=== PATIENT | female | born 1945 | race Caucasian/White ===

== ENCOUNTER 2023-12-08 16:32 | Inpatient (IN) | payer MEDICARE, SELFPAY ==
[2023-12-08] VITALS (9 sets, daily range): BP systolic 83–138; BP diastolic 39–77
[2023-12-08 12:36] LABS: % Basophils 0.7 % (0-2); % Eosinophils 0.3 % (0-6); % Immature Granulocytes 1.5 % (0-0.5); % Lymphocytes 7.5 % (20.5-51.1); % Monocytes 7.8 % (1.7-9.3); % Neutrophils 82.2 % (42.2-75.2); Absolute Basophils 0.1 10^3/uL (0-0.2); Absolute Eosinophils 0.1 10^3/uL (0-0.7); Absolute Immature Granulocytes 0.3 10^3/uL (0-0.05); Absolute Lymphocytes 1.4 10^3/uL (1.2-3.4); Absolute Monocytes 1.5 10^3/uL (0.1-0.6); Absolute Neutrophils 15.9 10^3/uL (1.4-6.5); Hematocrit 43.1 % (37.0-47.0); Hemoglobin 15.7 g/dL (12.0-16.0); Mean Corp Hgb Conc. 36.4 g/dL (33.0-37.0); Mean Corpuscular Hgb 31.2 pg (27.0-31.0); Mean Corpuscular Volume 85.7 fL (81.0-99.0); Mean Platelet Volume 11.1 fL (7.4-10.4); Nucleated Red Blood Cells % 0 %; Platelet Count 519 10^3/uL (130-400); Red Blood Cell Count 5.03 10^6/uL (4.20-5.40); Red Cell Dist. Width 13.6 % (11.5-14.5); White Blood Cell Count 19.3 10^3/uL (4.8-10.8)
[2023-12-08 12:40] LABS: ALT (SGPT) 16 U/L (0-35); AST (SGOT) 30 U/L (14-36); Albumin 4.4 g/dl (3.5-5.0); Alkaline Phosphatase 87 U/L (38-126); Blood Urea Nitrogen 48 mg/dl (7-17); Calcium 10.6 mg/dl (8.4-10.2); Carbon Dioxide 27 mmol/L (22-30); Chloride 83 mmol/L (98-107); Glucose 92 mg/dl (70-99); Lipase 287 U/L (23-300); Potassium 4.8 mmol/L (3.5-5.1); Sodium 123 mmol/L (135-145); Total Bilirubin 1.2 mg/dl (0.2-1.3); Total Protein 6.9 g/dl (6.3-8.2); eGFR 35.01
--- NOTE | 2023-12-08 13:07 | ED.GENMED ---
History of Present Illness
General
Chief Complaint: Abdominal Symptoms
Time Seen by Provider: 12/08/23 12:59
History of Present Illness
History of Present Illness:
78-year-old female history of GERD, IBS presenting with left lower quadrant abdominal pain for the past 2 to 3 weeks. Patient describes it as a pressure like someone is sitting on her left side. Patient denies any nausea, vomiting, diarrhea,
dysuria, hematuria, fever or chills. Patient states that she was seen by her PCP today noted that she was on new onset atrial fibrillation and recommended come to the ER for further evaluation. Patient denies any previous history of A-fib.
Patient denies any chest pain, shortness of breath, palpitations, or dizziness. Patient states that she has been feeling 'off balance' for weeks. Patient states that she uses a cane at baseline.
Phy Exam
Physical Exam
Physical Exam:
General: Alert, no acute distress
Head: NCAT
Eyes: clear conjunctiva
Neck: supple
Cardiac: regular rate, irregularly irregular rhythm, no murmur
Lungs: clear to auscultation bilaterally. No wheezes, rales, or rhonchi. Speaking full unlabored sentences. No respiratory distress.
Abdomen: soft, nondistended nontender. No rebound or guarding.
MSK: no lower extremity edema bilaterally. No deformity
Skin: warm, dry
Neuro: Alert and oriented x3. no focal deficits
Course
Orders/Labs/Results
Orders:
Orders
12/08/23 12:08
IV Insert/Care/Rem.- Treatment PRN
12/08/23 12:13
Complete Blood Count/With Diff Urgent
Comprehensive Metabolic Panel Urgent
Lipase Urgent
Osmolality, Random Urine Urgent
Date Specimen was Collected: 12/08/23
Time Specimen was Collected: 12:09
Comment: ADD ON
Serum Osmolality Urgent
Comment: ADD ON
Urinalysis Reflex To Culture Urgent
Date Specimen was Collected: 12/08/23
Time Specimen was Collected: 12:09
Urine Sodium Urgent
Date Specimen was Collected: 12/08/23
Time Specimen was Collected: 12:09
Comment: ADD ON
12/08/23 13:00
EKG [Electrocardiogram (*1)] Urgent
Reason for Study: Abnormal EKG
EKG- Treatment ONCE
12/08/23 13:07
CT Abd/pelvis W Iv Cont Urgent
Comment:
Reason For Exam: llq pain
12/08/23 13:29
Add On- LAB Urgent
Tests Added?: urine sodium, urine osmolality, serum osmolality
12/08/23 15:05
Piperacillin/Tazo 4.5 Gram [Zosyn] 4.5 gram in 100 ml IV NOW
12/08/23 15:18
0.9% Sodium Chloride 1000 ml [Nss] 1,000 ml IV BOLUS
12/08/23 16:20
Admit/Transfer Patient As Directed
Co-Sign Provider:
Level of Care: Inpatient admission
Assign to:: Telemetry
Physician / Group: clarice juarez
Diagnosis: divertiuclar abscess
Reason for Telemetry: Arrhythmia
Date to Stop Telemetry: 12/11/23
Time to Stop Telemetry: 11:00
Reason for Hospitalization: diverticular abscess
Expected length of stay greater than two midnights?: Yes
ELOS- Estimated Length of Stay in days: 3
I certify the patient meets the requirements for IP care: Yes
Code Status As Directed
Resuscitation Status: Full Code
12/08/23 16:28
Heparin 4,000 units IV NOW STA
Pharmacy Request to Place See Dose Instructions PO NOW STA
Discontinue all Active Warfarin orders?: Yes
12/08/23 16:28
Blood Culture Stat
RAVINDRA Source: Blood/Venous
Specimen Description:
Heparin Protocol- PTT Orders As Directed
PTT per Heparin protocol: -Obtain CBC and baseline PTT - if not already collected.
-Obtain PTT 6 hours from start of infusion. Then, every 6 hours until 2 consecutive
PTT's are therapeutic. Then, PTT Daily.
-With each rate change, obtain PTT every 6 hours until 2 consecutive PTT's are
therapeutic. Then, PTT Daily.
Heparin Protocol- PTT Orders As Directed
PTT per Heparin protocol: -Obtain CBC and baseline PTT - if not already collected.
-Obtain PTT 6 hours from start of infusion. Then, every 6 hours until 2 consecutive
PTT's are therapeutic. Then, PTT Daily.
-With each rate change, obtain PTT every 6 hours until 2 consecutive PTT's are
therapeutic. Then, PTT Daily.
12/08/23 16:30
0.9% Sodium Chloride 1000 ml [Nss] 1,000 ml IV 60 mls/hr
Heparin 19521 Units/250 ml 25,000 units in 250 ml IV PER PROTOCOL
Weight to be used for heparin protocol in kilograms (kg):: 70
Protocol:: Cardiac Tx/Acute Coronary
PTT Goal Range to be used:: PTT 73 to 111 seconds
Order type:: Initial
INITIAL Infusion Dose (UNITS/KG/hr) & then follow protocol:: 12 units/kg/hr
Infusion Dose in UNITS/hr & then follow protocol (UNITS/hr):: 850
INFUSION RATE in mL/hr & then follow protocol (mL/hr):: 8.5
PTT less than or equal to 64 seconds:: Increase rate by 200 units/hr (+ 2 mL/hr)
PTT 64.1 to 72.9 seconds:: Increase rate by 100 units/hr (+ 1 mL/hr)
PTT 73 to 111 seconds:: Target Range. No change in rate.
PTT 111.1 to 130.9 seconds:: Decrease rate by 100 units/hr (- 1 mL/hr)
PTT 131 to 199.9 seconds:: HOLD for 1 hr. Then decrease rate by 200 units/hr (- 2 mL/hr)
PTT greater than or equal to 200 seconds:: HOLD for 2 hrs & Notify Provider. Then decrease by 200 units/hr (-
2 mL/hr)
Lab follow-up:: Each change, PTT q6h until 2 consecutive are therapeutic. Then PTT
daily.
12/08/23 17:[address] See Dose Instructions IV DIRECTED
12/08/23 20:00
BMP [Basic Metabolic Panel] Stat
12/11/23 11:00
DC Protocol for Telemetry ONCE
Abnormal Lab Results
12/08/23
12:13
WBC 19.3 H 10^3/uL
(4.8-10.8)
MCH 31.2 H pg
(27.0-31.0)
Plt Count 519 H 10^3/uL
(130-400)
MPV 11.1 H fL
(7.4-10.4)
Abs Immat Gran (auto) 0.3 H 10^3/uL
(0-0.05)
Absolute Neuts (auto) 15.9 H 10^3/uL
(1.4-6.5)
Absolute Monos (auto) 1.5 H 10^3/uL
(0.1-0.6)
Immature Gran % 1.5 H %
(0-0.5)
Neutrophils % 82.2 H %
(42.2-75.2)
Lymphocytes % 7.5 L %
(20.5-51.1)
Sodium 123 L mmol/L
(135-145)
Chloride 83 L mmol/L
(98-107)
BUN 48 H mg/dl
(7-17)
Creatinine 1.5 H mg/dL
(0.6-1.0)
Serum Osmolality 270 L mOsm/kg
(275-300)
Calcium 10.6 H mg/dl
(8.4-10.2)
Urine Sodium 15 L mmol/L
(30-90)
12/08/23 12:13
12/08/23 12:13
Vital Signs
Initial and Last Documented VS:
Initial Vital Signs
Temp Pulse Resp BP Pulse Ox
98 F 78 18 105/59 98
12/08/23 12:02 12/08/23 12:02 12/08/23 12:02 12/08/23 12:02 12/08/23 12:02
Last Documented Vital Signs
Temp Pulse Resp BP Pulse Ox
98 F 92 23 83/48 98
12/08/23 12:02 12/08/23 15:02 12/08/23 15:02 12/08/23 15:02 12/08/23 12:02
MDM/Problems Addressed
Differential Diagnosis Includes:
Patient presents to the Emergency Department with left lower quadrant abdominal pressure
Number and Complexity of Problems Addressed at the Encounter
� Chronic conditions affecting care:
� Acute Exacerbation and/or Progression of Chronic Illness: IBS
� Differential Diagnosis includes: Diverticulitis, UTI, kidney stone
Amount and/or Complexity of Data to be Reviewed and Analyzed
� I performed an independent evaluation of and my interpretation is:
EKG: atrial fibrillation at 96bpm with QRS 94 QTc 371 no STEMI
CT:
Xrays:
Laboratory Studies:
Other:
� Review of other/old records reveals:
� Clinical information was obtained by an independent historian:
� Prescriptions/Medications Considered but not given:
� Further testing considered but not performed:
Risk of Complications and/or Morbidity or Mortality of Patient Management
� Social Determinants of health affecting care:
� Discussion with other providers (PCP, Hospitalists, Consultants, etc):
� Escalation of care including admission/observation vs risk of discharge considered: 78-year-old female 3 weeks. Patient states that she was seen by her PCP noted that she was in new onset atrial fibrillation and was sent to the ER for further
evaluation. On exam patient is rate controlled in the 80s to 90s. Abdominal exam benign. Will obtain CT abdomen pelvis rule out diverticulitis, kidney stone, colitis. Labs reviewed significant for sodium 123 (no previous). Results reviewed,
significant for leukocytosis 19.[address] abdomen/pelvis shows Diverticuli are present in the colon, most numerous in the sigmoid colon but there is no significant pericolonic inflammatory stranding. There is, however, a 3.2 cm gas
containing fluid-filled structure suggesting abscess in the left adnexa contiguous with both the sigmoid colon and the left side of the uterus with a 6 x 1 cm tubular area of fluid-filled density at its medial margin. The 6 cm tubular structure most
likely is hydrosalpinx. I am uncertain whether the presumed abscess is tubo-ovarian abscess or diverticular abscess. Ordered Zosyn. Discussed with Dr. Griffith, (colorectal surgery) and Dr. Guaman (MANAGER ZONE). Discussed with hospitalist who accepts for
admission
*Critical Care Note
Total Time (30-74mins, 75-104mins- exclusive of procedures): Not Applicable
ED Attending Note
-
Portions of this chart may have been created with voice recognition software.� Occasional wrong word or��sound alike� substitutions may have occurred due to the inherent limitations of voice recognition software.
Discharge Plan
Departure
Patient Disposition: Admit
Date of Disposition: 12/08/23
Time of Disposition: 15:40
Presentation/result/management discussed w/ accepting MD/DO: Hospitalist
Discharge Problem:
Abscess, Atrial fibrillation, new onset, Acute hyponatremia
Interventions
Interventions:
*Risk Screen - Suicide Last Done: 12/08/23 12:48
*General Assessment Last Done: 12/08/23 13:28
*Neglect/Abuse Screening Last Done: 12/08/23 12:48
ED- Fall Risk Assessment Last Done: 12/08/23 13:27
*ED COVID-19 Vaccine History Last Done: 12/08/23 13:28
ZV-Txyivf-Vqtudqnvep Assessment Last Done: 12/08/23 13:26
[2023-12-08 13:25] LABS: Urine Albumin Negative (Neg - Trace); Urine Bilirubin Negative (Negative); Urine Character Clear (Clear); Urine Color Yellow; Urine Glucose Negative (Negative); Urine Ketone Negative (Negative); Urine Leukocyte Negative (Negative); Urine Nitrite Negative (Negative); Urine Occult Blood Negative (Negative); Urine Specific Gravity 1.015 (<1.030); Urine Urobilinogen Negative (Neg - 1+)
[2023-12-08 14:46] LABS: Osmolality Serum 270 mOsm/kg (275-300)
[2023-12-08 14:56] LABS: Osmolality Urine 370 mOsm/kg (300-900)
[2023-12-08 15:13] LABS: Urine Sodium 15 mmol/L (30-90)
[2023-12-08] MEDS: ZOSYN 100 IV (15:15)
[2023-12-08] MEDS: NSS 1000 IV ×2 (15:18→20:12)
--- NOTE | 2023-12-08 15:44 | HPS.HSE ---
Addendum entered and electronically signed by Juliano Bryan MD 12/08/23 16:37:
I saw and examined the patient.
The [employer] REP or PA's note was reviewed and I agree with the note.
Comment: 78-year-old female with past medical history of hypertension came to the hospital with 2 to 3 weeks of left lower quadrant pain. Patient was at PCP office today and was in A-fib which prompted PCP to send her to the ED for evaluation. In
the ER and abdomen/pelvis CT was consistent with possible abscess(tubo-ovarian or diverticular). Patient at this time denies any abdominal pain, nausea. CHADVASC 3. Start heparin drip. Consult Guynn, colorectal, cardiology. Sodium 123 on
admission. Appears dehydrated. Gentle hydration and recheck sodium later today. Creatinine also elevated, unknown baseline. Repeat BMP tomorrow. UA without UTI. Check blood culture. Add vancomycin in addition to Zosyn
General: Well Developed, Well Nourished and No Apparent Distress
HEENT: NormoCephalic, Moist mucous membranes and Atraumatic
Respiratory: Clear
Cardiac: S1/S2 and Regular Rhythm; No Murmur or Rub
GI: Soft, Non Tender, Non Distended and Normal Bowel Sounds; No Organomegaly
Rectal: Deferred by Provider
Musculoskeletal: No Clubbing, No Cyanosis and No Edema
Skin: No Rash
Neuro: AO x 3 and Nonfocal/grossly intact
Psych: Calm
I spent a total of 77 minutes with the patient or on the floor. More than 50% of this time involved counseling and coordination of care.
Original Note:
Family Physician
-
Family Physician: Prince Maldonado
Chief Complaint
-
left lower quadrant pain
History of Present Illness
78-year-old female history of GERD, IBS, HTN,CKD presenting with left lower quadrant abdominal pressure for the past 2 to 3 weeks. Patient describes it as a pressure like someone is sitting on her left side. patient stated its intermittent
pressure. radiates to her lower back. she took Tylenol with some relief in her symptoms. Patient denies any nausea, vomiting, diarrhea, dysuria, hematuria, fever or chills. Patient states that she was seen by her PCP today noted that she was on
new onset atrial fibrillation and recommended come to the ER for further evaluation. Patient denies any chest pain, shortness of breath, palpitations, or dizziness. she drinks five bottle of water and 1.5 bottle of Gatorade.stated poor appetite for
past few weeks.
upon arrival she was noted in atrial fib with controlled HR, hypotension, hyponatremia. patient received normal saline and Zosyn in ER. CT with Diverticuli are present in the colon, most numerous in the sigmoid colon but there is no significant
pericolonic inflammatory stranding. There is, however, a 3.2 cm gas containing fluid-filled structure suggesting abscess in the left adnexa contiguous with both the sigmoid colon and the left side of the uterus with a 6 x 1 cm tubular area of
fluid-filled density at its medial margin. The 6 cm tubular structure most likely is hydrosalpinx. I am uncertain whether the presumed abscess is tubo-ovarian abscess or diverticular abscess
admitting for further management.
Medical History
Past Medical History
Past Medical History: Reports Other
Additional Past Medical History:
CKD
GERD
HTn
IBS
Past Surgical History: Reports None
Social History
Tobacco: Former Smoker
Alcohol: Occasional
Drug: None
Personal:
Living: With Family
Family History
Family History: Not pertinent
Allergies / Home Medications
Allergies reflects when Allergies were last updated in [facility].
Home Medications with original date entered in [facility]
Allergy/Medication List:
Allergies
Allergy/AdvReac Type Severity Reaction Status Date / Time
No Known Allergies Allergy Unverified 12/08/23 12:07
Home Medications
acetaminophen 325 mg tablet (Tylenol) 650 mg PO Q4HPRN PRN MILD PAIN 12/08/23
amlodipine 2.5 mg tablet (Norvasc) 2.5 mg PO DAILY 12/08/23
bimatoprost 0.01 % eye drops (Lumigan) 1 drp BOTH EYES QPM 12/08/23
cholecalciferol (vitamin D3) 50 mcg (2,000 unit) tablet (Vitamin D3) 50 mcg PO DAILY 12/08/23
enalapril maleate 20 mg tablet 40 mg PO DAILY 12/08/23
hydrochlorothiazide 25 mg tablet 25 mg PO DAILY 12/08/23
loperamide 2 mg tablet 2 mg PO BIDPRN PRN DIARRHEA 12/08/23
metoprolol tartrate 25 mg tablet 25 mg PO DAILY 12/08/23
timolol maleate 0.5 % eye gel forming solution 1 drp BOTH EYES HS 12/08/23
Review of Systems
-
Constitutional: Reports No Symptoms
EENT: Reports No Symptoms
Respiratory: Reports No Symptoms
Cardiac: Reports No Symptoms
Abdomen/GI: Reports Abdominal Pain (left lower quadrant pain)
: Reports No Symptoms
Musculoskeletal: Reports No Symptoms
Skin: Reports No Symptoms
Neurological: Reports No Symptoms
Endocrine: Reports No Symptoms
Hematologic/Lymphatic: Reports No Symptoms
Psych: Reports No Symptoms
Physical Exam
Vital Signs
Vital Signs
Temp Pulse Resp BP Pulse Ox
98 F 92 23 83/48 98
12/08/23 12:02 12/08/23 15:02 12/08/23 15:02 12/08/23 15:02 12/08/23 12:02
Physical Exam
General: Well Developed, Well Nourished and No Apparent Distress
HEENT: NormoCephalic, Moist mucous membranes and Atraumatic
Respiratory: Clear
Cardiac: S1/S2 and Regular Rhythm; No Murmur or Rub
GI: Soft, Non Tender, Non Distended and Normal Bowel Sounds; No Organomegaly
Rectal: Deferred by Provider
Musculoskeletal: No Clubbing, No Cyanosis and No Edema
Skin: No Rash
Neuro: AO x 3 and Nonfocal/grossly intact
Psych: Calm
Laboratory Results
-
12/08/23 12:13
12/08/23 12:13
Laboratory Results
Total Bilirubin 1.2 mg/dl (0.2-1.3) 12/08/23 12:13
AST 30 U/L (14-36) 12/08/23 12:13
ALT 16 U/L (0-35) 12/08/23 12:13
Alkaline Phosphatase 87 U/L (38-126) 12/08/23 12:13
Lipase 287 U/L (23-300) 12/08/23 12:13
Data Reviewed
-
CT Scan: Report Reviewed by me
Lab Data: Labs Reviewed by me
Impression/Plan
-
#LLQ pain likely from from tubo-ovarian abscess vs diverticular abscess
#sepsis as evident by wbc 19 and hypotension
-CT abdomen pelvis with Diverticuli are present in the colon, most numerous in the sigmoid colon but there is no significant pericolonic inflammatory stranding. There is, however, a 3.2 cm gas containing fluid-filled structure suggesting abscess in
the left adnexa contiguous with both the sigmoid colon and the left side of the uterus with a 6 x 1 cm tubular area of fluid-filled density at its medial margin. The 6 cm tubular structure most likely is hydrosalpinx. I am uncertain whether the
presumed abscess is tubo-ovarian abscess or diverticular abscess
-iv Zosyn,vanco continued
blood culture stat
-BUGGY OPERATOR and colorectal consulted
#new onset atrial fib
-EKG with atrial fib
-HR controlled
-obtain ECHO
-initiate on heparin drip
-Lopressor 5mg every 6 hours for HR>110, hold for sBP<110
-cardiology consulted
#hyponatremia/CKD /hypercalcemia likely dehydration
-na 123,cr 1.5, BUN 48, 10.6, urine sodium is 15
-serum osm 270
-normal saline once n ER
-BMP in am
-normal saline continued
-check BMp at 2000
-nephrology consulted
#hxt of HTN
-BP soft in ER
-hold Norvasc, enalapril, Metoprol
#DVT prophylaxis
-heparin drip
#CODE status
-full code
--- NOTE | 2023-12-08 16:37 | W.PN.UPDATE ---
Update Note
Progress Note Update
For billing purposes only
--- NOTE | 2023-12-08 17:02 | CON.MD ---
Consultation - Medical
-
78yo presents to the ER at the request of her PCP due to new onset A.fib, but also has c/o LLQ pressure for the past 2 weeks, and decreased appetite for the past 1 week. She denies n/v/f/c. No vaginal bleeding or abnormal discharge. normal
bowel and bladder function. Has baseline urinary incontinence. During her evaluation in the ER she had a CT A/P that was concerning for a TOA vs diverticular abscess so DUMP ATTENDANT was consulted
PMHx: HTN, GERD, CKD, IBS
PSHx: cholecystectomy
POBHx: x2
FamHx: non contributory
SHx: former smoker, no illicits
Meds: See med list
All: NKDA
ROS: per HPI
Vitals & Labs: see below
Gen: nad aaox3, lying in bed
Abd: soft, nt, nd, no r/g
Pelvic: No labial lesions/ulcerations, narrowed introitus, No abnormal discharge noted
CT A/P: Evaluation for bowel pathology is limited by the lack of enteric contrast.
Diverticuli are present in the colon, most numerous in the sigmoid colon but there is no significant pericolonic inflammatory stranding. There is, however, a 3.2 cm gas containing fluid-filled structure suggesting abscess in the left adnexa
contiguous with both the sigmoid colon and the left side of the uterus with a 6 x 1 cm tubular area of fluid-filled density at its medial margin. The 6 cm tubular structure most likely is hydrosalpinx. I am uncertain whether the presumed abscess is
tubo-ovarian abscess or diverticular abscess
A/P: 78yo with pelvic Abscess and new onset A. Fib
1. Pelvic Abscess: TOA vs diverticular abscess. I discussed the CT findings with the patient and her family. I explained that we can monitor her on IV antibiotics (currently on Zosyn and Vancomycin) and see if she improves clinically and repeat
imaging to evaluate for improvement of the abscess, if not then discuss with IR regarding potential drainage. Vs going immediately for drainage. I advised that surgery is reserved for if she does not improve with abx and drainage and/or there is
concern for rupture/leakage of the abscess. The family is comfortable with immediately trying drainage, rather than waiting to reevaluate after a couple days on the IV abx. I then discussed images with IR Dr. Pulido who feels the abscess is more
tubal than colonic. He states it is of a size that can be drained and is willing to attempt this tomorrow. PT/INR ordered, also he says the patient can have a clear liquid breakfast tomorrow morning, and then be made NPO.
-Vaginal culture collected.
-blood cultures pending
-additional cytology and cultures can be sent from drainage fluid if successful tomorrow.
-It is unusual for a postmenopausal patient to have a TOA so I also discussed case with Dr. Hanks Still Operator Gin-Onc. He agrees with attempting drainage and recommends that Colorectal also weigh in (Hospitalist team did consult them), but he also recommended
a Pelvic US to better evaluate her uterus. If endometrial lining appears thickened then endometrial biopsy would be warranted. I also explained this recommendation to the family and order for the Pelvic US was placed.
2. A. fib- Cardiology consulted and patient on Heparin drip.
3. Hyponatremia- mgmt per primary team
Total of 60 mins spent in discussion with patient, review of results, coordination of care and documentation
Vital Signs / Labs
-
Vital Signs and Labs:
Temp Pulse Resp BP Pulse Ox
98 F 94 12 100/58 98
12/08/23 12:02 12/08/23 15:30 12/08/23 15:30 12/08/23 15:22 12/08/23 12:02
12/08/23 12:13
12/08/23 12/08/23
12:13 16:58
WBC 19.3 H
MCH 31.2 H
Plt Count 519 H
MPV 11.1 H
Abs Immat Gran (auto) 0.3 H
Absolute Neuts (auto) 15.9 H
Absolute Monos (auto) 1.5 H
Immature Gran % 1.5 H
Neutrophils % 82.2 H
Lymphocytes % 7.5 L
APTT 39.2 H
Sodium 123 L
Chloride 83 L
BUN 48 H
Creatinine 1.5 H
Serum Osmolality 270 L
Calcium 10.6 H
Urine Sodium 15 L
[2023-12-08] MEDS: HEPARIN 4000 UNITS IV (17:15)
[2023-12-08] MEDS: HEPARIN 25000 UNITS/250 ML IV (17:15)
--- NOTE | 2023-12-08 17:21 | CON.CAR ---
Addendum entered and electronically signed by Joey Blas MD 12/08/23 19:47:
Patient seen and examined in collaboration with CLERICAL GRADER; agree with below.
-78-year-old female with suspected sepsis secondary to diverticular versus ovarian abscess; has new onset atrial fibrillation with RVR.
-Recommend using Lopressor 5 mg IV Q6 PRN.
-Heparin drip for now.
-Echocardiogram tomorrow.
-campus monitor; will follow.
Original Note:
Consultation
Consultation Request
Date/Time Consultation Requested: 12/08/2023 16:20
Date/Time Consultation Performed: 12/08/2019 17:00
Requesting Provider: JENNIFER He
Performing Provider: JENNIFER Dupree for Dr. Blas
Reason for Consultation: atrial fibrillation with rapid ventricular response
Medical History
-
Chief Complaint: Abdominal pain
History of Present Illness:
Regla Huggins is an 78-year-old female with GERD, IBS, hypertension, and chronic kidney disease who presented to her PCP with left lower quadrant abdominal pressure. She describes it as a heavy pressure. She prefers not to call it pain. It will
radiate into her back. She intermittently takes acetaminophen. She saw her PCP today and noted new onset atrial fibrillation and referred her to the ER for further management. Workup revealed hypotension, hyponatremia, and an abnormal CAT scan
concerning for abscess. She is on the hospitalist service. HAIRSPRING ASSEMBLER is consulted. Cardiology is consulted for atrial fibrillation management. She is having no palpitations. She is not having any chest pain.
Past Medical History
Past Medical History: GERD, HTN, Renal Failure (CKD) and Other (IBS)
Social History
Tobacco: Former Smoker
Alcohol: Occasional
Drug: None
Living: With Family
Employment: Retired
Family History
Family History: Reviewed & Not Pertinent
Allergies / Home Medications
Allergy/AdvReac Type Severity Reaction Status Date / Time
No Known Allergies Allergy Unverified 12/08/23 12:07
�Medication �Instructions �Recorded �Confirmed �Type
acetaminophen 325 mg tablet 650 mg PO Q4HPRN PRN MILD PAIN 12/08/23 12/08/23 History
(Tylenol)
amlodipine 2.5 mg tablet (Norvasc) 2.5 mg PO DAILY 12/08/23 12/08/23 History
bimatoprost 0.01 % eye drops 1 drp BOTH EYES QPM 12/08/23 12/08/23 History
(Lumigan)
cholecalciferol (vitamin D3) 50 50 mcg PO DAILY 12/08/23 12/08/23 History
mcg (2,000 unit) tablet (Vitamin
D3)
enalapril maleate 20 mg tablet 40 mg PO DAILY 12/08/23 12/08/23 History
hydrochlorothiazide 25 mg tablet 25 mg PO DAILY 12/08/23 12/08/23 History
loperamide 2 mg tablet 2 mg PO BIDPRN PRN DIARRHEA 12/08/23 12/08/23 History
metoprolol tartrate 25 mg tablet 25 mg PO DAILY 12/08/23 12/08/23 History
timolol maleate 0.5 % eye gel 1 drp BOTH EYES HS 12/08/23 12/08/23 History
forming solution
Review of Systems
-
History Source: Patient
All other systems: Negative unless noted
Constitutional: Fatigue
EENT: No Symptoms
Respiratory: No Symptoms
Cardiac: No Symptoms
Abdomen/GI: Abdominal Pain (Described as a pressure)
: No Symptoms
Musculoskeletal: No Symptoms
Skin: No Symptoms
Neurological: No Symptoms
Endocrine: No Symptoms
Hematologic/Lymphatic: No Symptoms
Physical Exam
Vital Signs
Temp Pulse Resp BP Pulse Ox
98 F 92 23 83/48 98
12/08/23 12:02 12/08/23 15:02 12/08/23 15:02 12/08/23 15:02 12/08/23 12:02
Lab Results
12/08/23 12:13
Physical Exam
General: Well Developed, Well Nourished, No Apparent Distress and Comfortable
HEENT: Normocephalic, Anicteric, Moist Mucous Membranes and Other (MOAPA)
Respiratory: Clear and Non Labored Respirations
Cardiac: S1/S2 and Irregular Rhythm; Negative Peripheral Edema
Breast: Deferred by me
GI: Soft, Non Tender, Non Distended and Normal Bowel Sounds
Rectal: Deferred by Provider
Genito-urinary: No Costovertebral Tender
Musculoskeletal: No Clubbing and No Cyanosis
Skin: Warm and Dry
Neuro: AO x 3
Hematologic/Lymphatic: No Lymphadenopathy
Psych: Calm
Impression / Plan
-
Background: 78F with hypertension, GERD, and IBS who presented to her PCP with abdominal pressure. She was found to be in atrial fibrillation. Abdominal pressure appears to be an abscess.
Sepsis, tubo-ovarian abscess versus diverticular abscess
-She has leukocytosis and hypotension
-Blood cultures are pending
-Colorectal surgery and Greenhouse Manager consulted by primary service
Atrial fibrillation, onset unknown, new diagnosis
-Rate controlled at present
-Oral Anticoagulation: Heparin drip, anticipate starting apixaban, dosing to be determined as her creatinine is 1.5 and she is 78 years old and her baseline creatinine is unknown
-[id number]: Score at least 4 (HTN, age 75 or more, female gender)
Hypertension, now hypotensive, holding antihypertensive agents
Hyponatremia, nephrology following
Former smoker, continued cessation recommended
Data Reviewed
-
EKG: Report Reviewed by me (Atrial fibrillation, left axis deviation, rate 96)
CT Scan: Report Reviewed by me (Abdomen pelvis as above)
Labs: Labs Reviewed by me
[2023-12-08 17:22] LABS: APTT 39.2 Sec (23.4-35.0)
--- NOTE | 2023-12-08 18:44 | PTCARENOTE ---
pt presents from ED via stretcher. pt is AAO*3, Vss room air 99%. PT is on Hep gtt. pt oriented to the room. call parrish within the reach, plan of care ongoing.
[2023-12-08 18:45] LABS: Hematocrit 37.2 % (37.0-47.0); Hemoglobin 13.7 g/dL (12.0-16.0); Mean Corp Hgb Conc. 36.8 g/dL (33.0-37.0); Mean Corpuscular Hgb 30.6 pg (27.0-31.0); Mean Corpuscular Volume 83.2 fL (81.0-99.0); Mean Platelet Volume 10.9 fL (7.4-10.4); Platelet Count 424 10^3/uL (130-400); Red Blood Cell Count 4.47 10^6/uL (4.20-5.40); Red Cell Dist. Width 13.5 % (11.5-14.5); White Blood Cell Count 18.7 10^3/uL (4.8-10.8)
[2023-12-08] MEDS: XALATAN OPHTHALMIC SOLUTION 1 DROP BOTH EYES (20:13)
--- NOTE | 2023-12-08 20:17 | PHA.VAN.IN ---
Assessment
- Assessment
Renal Function: Unknown baseline
Concomitant Antimicrobials: ZOSYN
- Previous Dosing Experience
Previous Regimen: NONE
Plan
- Plan
Initial / Loading Dose: 1500MG
Maintenance Regimen: DOSING BY RANDOM LEVELS
Monitoring: RANDOM VANCOMYCIN LEVEL 12/09/23 AM
Pharmacokinetics Vancomycin I
- -
Patient Age: 78
Patient Sex: Female
Vancomycin Day #: 1
Indication: Gi / Intra-Abdominal (ABSCESS/HYDROSALPINX)
Height / Weight:
Height 5 ft 3 in
Actual Weight 67.495 kg
- Vital Signs / Lab Results
Temp Pulse Resp BP Pulse Ox
98.4 F 103 18 95/62 98
12/08/23 19:54 12/08/23 19:54 12/08/23 19:54 12/08/23 19:54 12/08/23 19:54
Lab Results - Hematology
12/08/23 12/08/23
12:13 18:40
WBC 19.3 H 18.7 H
Lab Results - Chemistry
12/08/23
12:13
BUN 48 H
Creatinine 1.5 H
Albumin 4.4
Lab Results - Urine
12/08/23
12:13
Urine Nitrite (Reflex) Negative
Leukocyte Esterase Rfl Negative
[2023-12-08] MEDS: TYLENOL 650 MG PO (20:25)
[2023-12-08] MEDS: VANCOCIN 300 ML IV (20:25)
[2023-12-08] MEDS: VANCOCIN 300 MG IV (20:25)
[2023-12-08] MEDS: TIMOPTIC 0.5% OPHTHALMIC SOLUTION BOTH EYES (20:30)
[2023-12-08 20:40] LABS: Blood Urea Nitrogen 45 mg/dl (7-17); Calcium 9.2 mg/dl (8.4-10.2); Carbon Dioxide 22 mmol/L (22-30); Chloride 90 mmol/L (98-107); Estimated Creatinine Clearance 27 ml/min; Glucose 131 mg/dl (70-99); Potassium 3.5 mmol/L (3.5-5.1); Sodium 124 mmol/L (135-145); eGFR 38.03
[2023-12-08] MEDS: ZOSYN 50 IV (22:21)
[2023-12-09] VITALS (17 sets, daily range): BP systolic 92–153; BP diastolic 57–82
[2023-12-09 00:03] LABS: APTT > 200 Sec (23.4-35.0)
[2023-12-09] MEDS: ZOSYN 50 IV ×4 (04:39→21:52)
[2023-12-09] MEDS: TIMOPTIC 0.5% OPHTHALMIC SOLUTION 1 DROP BOTH EYES (08:34)
[2023-12-09 08:59] LABS: Hematocrit 35.3 % (37.0-47.0); Hemoglobin 12.8 g/dL (12.0-16.0); Mean Corp Hgb Conc. 36.3 g/dL (33.0-37.0); Mean Corpuscular Hgb 31.4 pg (27.0-31.0); Mean Corpuscular Volume 86.7 fL (81.0-99.0); Platelet Count 327 10^3/uL (130-400); Red Blood Cell Count 4.07 10^6/uL (4.20-5.40); Red Cell Dist. Width 13.6 % (11.5-14.5); White Blood Cell Count 11.3 10^3/uL (4.8-10.8)
--- NOTE | 2023-12-09 09:08 | CM ---
Addendum entered by Radha Kraft 12/10/23 14:20:
CM met with Regla today prior to discharge home. She denies needing any services at this time. She will return home with her partner.
Plan: Discharge to home with no needs.
Original Note:
Request to [facility]: $47 for 30 day supply for 2.5 mg bid as well as 5mg bid at [facility] in [place] (pt's local pharmacy).
[2023-12-09 09:13] LABS: INR 1.24; PT 15.6 Sec (11.4-14.6)
[2023-12-09 09:14] LABS: APTT 76.1 Sec (23.4-35.0)
--- NOTE | 2023-12-09 09:17 | CON.CRS ---
Consultation
-
Date/Time Consultation Requested: 12/08/2023, 18:23
Date/Time Consultation Performed: 12/09/2023, 10:30
Requesting Provider: Divine Darling
Performing Provider: Stan Griffith MD
Reason for Consultation: abscess
Medical History
-
Chief Complaint: LLQ pain
History of Present Illness:
78-year-old female with a past medical history of IBS and hypertension presents the emergency department on 12/08/2023 due to left lower quadrant abdominal pain for the past 2 or 3 weeks. The pain feels like an intermittent pressure that radiates to
her back. She denies nausea vomiting diarrhea fevers or chills. She was seen by her primary care physician yesterday and noted new onset A-fib and was recommended to come to the ER for further evaluation. In the ER she was in atrial fibrillation
and received Zosyn and a CT scan. CT showed diverticular present in the colon most numerous in the sigmoid colon but there is no significant paraclinical inflammatory stranding. There is however a 3.2 gas containing fluid-filled structure
suggesting abscess the left adnexa contiguous with both the sigmoid colon and the left side of the uterus with a 6 x 1 cm tubular area of fluid-filled density at the medial margin. The 6 mm tubular structure is most likely hydrosalpinx. Uncertain
whether the presumed abscess is tubular ovarian abscess versus diverticular abscess.
She was admitted and seen by SLATE TRIMMER who discussed the images with Dr. Pulido of radiology. DrSaritha Chen had felt the abscess was more tubal than colonic and was willing to attempt IR drainage. The case was also discussed by with SLATE TRIMMER to Dr. Hanks
with [facility]. He also agreed with attempting drainage and recommended a colorectal consult. He also recommended a pelvic ultrasound to better evaluate the uterus. As for her atrial fibrillation she was started on a heparin drip which is being
held at 11 AM today prior to IR drainage. She is also undergoing an echo today with cardiology.
Currently her WBC is 11.3 from 19.3 on arrival to the ER. She remains afebrile and her vitals are normal. Her last colonoscopy was by Dr. Parkinson with GI in [facility], a few polyps were removed 1-2 years ago. She also had a prior gallbladder
surgery 10-15 years ago.We have been consulted for further surgical opinion.
Past Medical History
Past Medical History: GERD, HTN and Other (ckd, IBS)
Past Surgical History: Cholecystectomy
Social History
Tobacco: Former Smoker
Alcohol: Occasional
Drug: None
Personal:
Family History
Family History: Reviewed & Not Pertinent
Allergies / Home Medications
Allergy/AdvReac Type Severity Reaction Status Date / Time
lisinopril Allergy abdominal Verified 12/08/23 20:30
cramping
unknown drug Allergy Unknown Uncoded 12/08/23 20:31
�Medication �Instructions �Recorded �Confirmed �Type
acetaminophen 325 mg tablet 650 mg PO Q4HPRN PRN MILD PAIN 12/08/23 12/08/23 History
(Tylenol)
amlodipine 2.5 mg tablet (Norvasc) 2.5 mg PO DAILY blood pressure 12/08/23 12/08/23 History
bimatoprost 0.01 % eye drops 1 drp BOTH EYES QPM eye condition 12/08/23 12/08/23 History
(Lumigan)
cholecalciferol (vitamin D3) 50 50 mcg PO DAILY supplement 12/08/23 12/08/23 History
mcg (2,000 unit) tablet (Vitamin
D3)
enalapril maleate 20 mg tablet 40 mg PO DAILY blood pressure 12/08/23 12/08/23 History
hydrochlorothiazide 25 mg tablet 25 mg PO DAILY blood pressure 12/08/23 12/08/23 History
loperamide 2 mg tablet 2 mg PO BIDPRN PRN diarrhea 12/08/23 12/08/23 History
metoprolol tartrate 25 mg tablet 25 mg PO DAILY blood pressure 12/08/23 12/08/23 History
timolol maleate 0.5 % eye gel 1 drp BOTH EYES HS eye condition 12/08/23 12/08/23 History
forming solution
Review of Systems
-
History Source: Patient
Abdomen/GI: Abdominal Pain
A 10 point review of systems was completed, and was negative except as per HPI.
Physical Exam
Vital Signs
Temp 97.6 F 12/09/23 07:40
Pulse 86 12/09/23 07:40
Resp Rate 18 12/09/23 07:40
Blood pressure 108/65 12/09/23 07:40
SaO2 99 12/09/23 07:40
12/08/23 12/09/23 12/10/23
06:59 06:59 06:59
Actual Weight 67.495 kg
Body Mass Index (BMI) 0.0
Lab Results / Allergies
12/09/23 08:38
WBC 11.3 10^3/uL (4.8-10.8) H 12/09/23 08:38
Hgb 12.8 g/dL (12.0-16.0) 12/09/23 08:38
Hct 35.3 % (37.0-47.0) L 12/09/23 08:38
Plt Count 327 10^3/uL (130-400) D 12/09/23 08:38
Abs Immat Gran (auto) 0.3 10^3/uL (0-0.05) H 12/08/23 12:13
Neutrophils % 82.2 % (42.2-75.2) H 12/08/23 12:13
Allergy/AdvReac Type Severity Reaction Status Date / Time
lisinopril Allergy abdominal Verified 12/08/23 20:30
cramping
unknown drug Allergy Unknown Uncoded 12/08/23 20:31
Physical Exam
General: Well Developed, Well Nourished and No Apparent Distress
GI: Soft, Non Tender and Non Distended
Neuro: AO x 3
Psych: Calm
Data Reviewed
-
CT Scan: Image Personally Visualized and interpreted, Report Reviewed by me and Discussed with Patient
Labs: Labs Reviewed by me, Discussed with Physician and Discussed with Patient
Old Records: Reviewed
Assessment / Plan
-
Assessment: 28-year-old female left lower quadrant abdominal pain found to have a 3.2 cm abscess in the left neck Cx contiguous with sigmoid colon left-sided uterus with a 6 x 1 cm tubular area of fluid-filled density at the medial margin.
Plan: Patient is scheduled for IR today for drainage of the abscess. Images reviewed by Dr. Griffith who feels this is likely not chronic in nature. No surgery is indicated at this time from our perspective.
[2023-12-09 09:49] LABS: Blood Urea Nitrogen 35 mg/dl (7-17); Calcium 9.4 mg/dl (8.4-10.2); Carbon Dioxide 22 mmol/L (22-30); Chloride 95 mmol/L (98-107); Estimated Creatinine Clearance 25 ml/min; Glucose 85 mg/dl (70-99); Potassium 3.8 mmol/L (3.5-5.1); Sodium 127 mmol/L (135-145); eGFR 35.01
[2023-12-09 10:11] LABS: Vancomycin Random 14.9 ug/ml
--- NOTE | 2023-12-09 10:36 | W.PN.CD ---
Addendum entered and electronically signed by Joye Blas MD 12/09/23 13:24:
Patient seen and examined in collaboration with WINDOW GLASS CUTTER OFF; agree with below. Patient still in A-fib with elevated heart rates at times.
-Echocardiogram today.
-Heparin drip; hold for procedure today.
-Continue IV Lopressor PRN.
Original Note:
Today's Communication / Plan
-
IR today
Follow telemetry
Echocardiogram today
Impression / Plan
-
Background: 78F with hypertension, GERD, and IBS who presented to her PCP with abdominal pressure. She was found to be in atrial fibrillation. Abdominal pressure appears to be an abscess.
Sepsis, tubo-ovarian abscess versus diverticular abscess
-Leukocytosis is improving and hypotension has improved
-Blood cultures are pending
-IR to drain fluid collection today
Atrial fibrillation, onset unknown, new diagnosis
-Rate controlled at present, has not needed as needed metoprolol
-Oral Anticoagulation: Heparin drip, anticipate starting apixaban, dosing to be determined as her creatinine is 1.5 and she is 78 years old and her baseline creatinine is unknown
-[id number]: Score at least 4 (HTN, age 75 or more, female gender)
-Echocardiogram today
Hypertension, all agents are currently on hold
Hyponatremia, nephrology following
Former smoker, continued cessation recommended
Physical Exam
Vital Signs/Labs
Vital Signs
Temp Pulse Resp BP Pulse Ox
97.6 F 86 18 108/65 99
12/09/23 07:40 12/09/23 07:40 12/09/23 07:40 12/09/23 07:40 12/09/23 07:40
12/08/23 12/09/23 12/10/23
06:59 06:59 06:59
Actual Weight 67.495 kg
12/09/23 08:38
12/09/23 08:38
PT 15.6 Sec (11.4-14.6) H 12/09/23 08:38
INR 1.24 12/09/23 08:38
APTT 76.1 Sec (23.4-35.0) H 12/09/23 08:38
Physical Exam
Constitutional: No acute distress and Comfortable
EENT: Anicteric and Moist mucous membranes
Cardiovascular: Rhythm/rate is irregular and S1S2 is normal
Respiratory: Respiratory effort normal and Lungs clear to auscul.
GI: Soft, Distention absent, Flat, Normal bowel sounds and Abdomen is tender
Neuro/Psych: AO x 3
Other: Skin (Warm and dry)
Data Reviewed
-
Date of Service: December 09, 2023
Labs: Labs Reviewed by me
Old Records: Reviewed
--- NOTE | 2023-12-09 11:01 | PHA.VAN.FU ---
Vancomycin Assessment / Plan
- Assessment
Renal Function: Stable
WBC's are: Trending Down
In the past 24 hrs, patient has been: Afebrile
Concomitant Antimicrobials: piperacillin/tazobactam
- Assessment - Therapeutic Drug Monitoring
Random Level: 14.9 - drawn ~12H after 1500mg loading dose
- Dosing Plan
Dosing by Level: Re-dose today (Vanc 750mg)
- Monitoring Plan
Random Level: 12/09 06
- Follow Up
Pharmacy will continue to follow.
Vancomycin Follow UP
- -
Patient Age: 78
Patient Sex: Female
Vancomycin Day #: 2
Indication: Gi / Intra-Abdominal
Requesting Provider: Marcia Darling
Pertinent Antimicrobial Allergies:
No known pertinent antibiotic allergies
Height / Weight:
Height 5 ft 3 in
Actual Weight 67.495 kg
Pertinent Past Medical History: CKD
- Vital Signs / Lab Results
Temp Pulse Resp BP Pulse Ox
97.6 F 86 18 108/65 99
12/09/23 07:40 12/09/23 07:40 12/09/23 07:40 12/09/23 07:40 12/09/23 07:40
Lab Results - Hematology
12/08/23 12/08/23 12/09/23
12:13 18:40 08:38
WBC 19.3 H 18.7 H 11.3 H
Lab Results - Chemistry
12/08/23 12/08/23 12/09/23
12:13 20:02 08:38
BUN 48 H 45 H 35 H
Creatinine 1.5 H 1.4 H 1.5 H
Estimated Creat Clear 27 25
Albumin 4.4
Lab Results - Urine
12/08/23
12:13
Urine Nitrite (Reflex) Negative
Leukocyte Esterase Rfl Negative
Therapeutic Drug Monitoring
Random Vancomycin 14.9 ug/ml 12/09/23 08:38
--- NOTE | 2023-12-09 11:13 | PTCARENOTE ---
hep gtt on hold at 1100 as per order.
[2023-12-09] MEDS: TYLENOL 650 MG PO ×2 (11:14→19:02)
[2023-12-09] MEDS: VANCOCIN 150 IV (11:21)
[2023-12-09 11:40] LABS: TSH Reflex To Free T4 1.55 uIU/ml (0.47-4.68)
--- NOTE | 2023-12-09 12:39 | W.PN.GYN ---
Today's Communication / Plan
-
Pelvic Abscess:
-Continue Zosyn and Vancomycin
-IR drainage scheduled for today at 1500. NPO and Heparin held for planned procedure. Cytology and cultures will be sent from any fluid obtained.
-Patient understands that surgery is reserved for if she does not clinically improve with abx and drainage and/or if there is concern for rupture/leakage of the abscess.
-Vaginal culture pending
-blood cultures pending
-Colorectal consult complete-- do not feel surgical intervention is indicated at this time
-As malignancy must be considered in a postmenopausal patient with a TOA, Dr. Almanza discussed patient's case with Leather Staker Onc Dr. Hanks yesterday. He reviewed the CT images and felt that it favored a benign etiology. He agreed with attempting IR
drainage today. He also recommended a Pelvic US to better evaluate her uterus-- this was ordered and should be done at some point today (patient's RN will call radiology to see when she will be able to go for study). If endometrial lining appears
thickened then endometrial biopsy would be warranted.
Physician Note
-
Today, pt doing okay without any reported change in her symptoms. Still feeling LLQ pain, not worse or better than yesterday. Denies f/c. Hasn't had a bowel movement in several days, but hasn't had an appetite so hasn't eaten much. Normally has
diarrhea secondary to IBS and takes Imodium regularly. Denies n/v.
VSS- see below, afebrile
Gen: NAD, WD/WN
Abd: soft, NTTP, ND, no r/g, no mass, no fluid wave
Extr: no calf TTP b/l
See labs below
A/P: 78yo with pelvic Abscess and new onset A. Fib.
1. Pelvic Abscess: TOA vs diverticular abscess. Pain unchanged, per pt. Abdominal exam benign. Remains afebrile, on Zosyn and Vancomycin. WBC downtrending.
-IR drainage scheduled for today at 1500. NPO and Heparin held for planned procedure. Cytology and cultures will be sent from any fluid obtained.
-Patient understands that surgery is reserved for if she does not clinically improve with abx and drainage and/or if there is concern for rupture/leakage of the abscess.
-Vaginal culture pending
-blood cultures pending
-Colorectal consult complete-- do not feel surgical intervention is indicated at this time
-As malignancy must be considered in a postmenopausal patient with a TOA, Dr. Almanza discussed patient's case with Leather Staker Onc Dr. Hanks yesterday. He reviewed the CT images and felt that it favored a benign etiology. He agreed with attempting IR
drainage today. He also recommended a Pelvic US to better evaluate her uterus-- this was ordered and should be done at some point today (patient's RN will call radiology to see when she will be able to go for study). If endometrial lining appears
thickened then endometrial biopsy would be warranted.
2. A. fib- Mgmt per Cardiology. Patient on Heparin drip.
3. Hyponatremia- mgmt per primary team
Thank you for allowing us to participate in this patient's care. We will continue to follow along. Please feel free to reach out to the STUMP SHOOTER on-call provider via [facility] with any questions.
Kristal Carvalho DO
Vital Signs / Labs
-
Vital Signs and Labs:
Temp Pulse Resp BP Pulse Ox
98 F 78 18 92/59 99
12/09/23 11:16 12/09/23 11:16 12/09/23 11:16 12/09/23 11:16 12/09/23 11:16
12/09/23 08:38
12/09/23 08:38
12/08/23 12/08/23 12/08/23
12:13 16:58 18:40
WBC 19.3 H 18.7 H
RBC
Hct
MCH 31.2 H
Plt Count 519 H 424 H
MPV 11.1 H 10.9 H
Abs Immat Gran (auto) 0.3 H
Absolute Neuts (auto) 15.9 H
Absolute Monos (auto) 1.5 H
Immature Gran % 1.5 H
Neutrophils % 82.2 H
Lymphocytes % 7.5 L
PT
APTT 39.2 H
Sodium 123 L
Chloride 83 L
BUN 48 H
Creatinine 1.5 H
Glucose
Serum Osmolality 270 L
Calcium 10.6 H
Urine Sodium 15 L
12/08/23 12/08/23 12/09/23
20:02 23:32 08:38
WBC 11.3 H
RBC 4.07 L
Hct 35.3 L
MCH 31.4 H
Plt Count
MPV 11.0 H
Abs Immat Gran (auto)
Absolute Neuts (auto)
Absolute Monos (auto)
Immature Gran %
Neutrophils %
Lymphocytes %
PT 15.6 H
APTT > 200 H* 76.1 H
Sodium 124 L 127 L
Chloride 90 L 95 L
BUN 45 H 35 H
Creatinine 1.4 H 1.5 H
Glucose 131 H
Serum Osmolality
Calcium
Urine Sodium
Imaging Data
-
no new imaging to review
[2023-12-09] MEDS: NSS 1000 IV (12:48)
--- NOTE | 2023-12-09 13:10 | W.PN.HOSP.TC ---
Today's Communication/Plan
-
monitor vital signs and see plan
IR for possible abscess drainage
Continue with antibiotics
Follow blood cultures
Monitor sodium
Assessment / Plan
Assessment / Plan
General: Well Developed, Well Nourished and No Apparent Distress
HEENT: NormoCephalic, Moist mucous membranes and Atraumatic
Respiratory: Clear
Cardiac: S1/S2 and Regular Rhythm; No Murmur or Rub
GI: Soft, Non Tender, Non Distended and Normal Bowel Sounds
Musculoskeletal: No Edema
Neuro: AO x 3 and Nonfocal/grossly intact
Psych: Calm
LLQ pain likely from from tubo-ovarian abscess vs diverticular abscess
#sepsis likely 2/2 above
bcx pending
-CT abdomen pelvis with Diverticuli are present in the colon, most numerous in the sigmoid colon but there is no significant pericolonic inflammatory stranding. There is, however, a 3.2 cm gas containing fluid-filled structure suggesting abscess in
the left adnexa contiguous with both the sigmoid colon and the left side of the uterus with a 6 x 1 cm tubular area of fluid-filled density at its medial margin. The 6 cm tubular structure most likely is hydrosalpinx. I am uncertain whether the
presumed abscess is tubo-ovarian abscess or diverticular abscess
-iv Zosyn,vanco
-TALEND DEVELOPER and colorectal following. IR consulted for possible drainage
pelvic ultrasound per gynecology
#new onset atrial fib
-EKG with atrial fib
-ECHO
-initiate on heparin drip
-Lopressor
CHADVASC 4
-cardiology following
#hyponatremia/CKD /hypercalcemia likely dehydration
-normal saline
Na now 127; monitor
Renal insufficiency
Unknown if has underlying CKD
Continue to monitor
Hypercalcemia
Now improving
#hxt of HTN
Blood pressure here on lower end
-hold Norvasc, enalapril, Metoprol
#DVT prophylaxis
-heparin drip
#CODE status
-full code
I spent a total of 52 minutes with the patient or on the floor. More than 50% of this time involved counseling and coordination of care.
Anticipated Discharge: > 48 hours
Subjective/Interval History
-
Date of Service: December 09, 2023
has some abdominal discomfort
Objective Data
-
Labs:
Laboratory Results
12/09/23
08:38
WBC 11.3 H
Hgb 12.8
Hct 35.3 L
Plt Count 327 D
PT 15.6 H
INR 1.24
APTT 76.1 H
Sodium 127 L
Potassium 3.8
Chloride 95 L
Carbon Dioxide 22
BUN 35 H
Creatinine 1.5 H
Glucose 85
Calcium 9.4
Vital Signs:
Vital Signs
Temp Pulse Resp BP Pulse Ox
98 F 78 18 92/59 99
12/09/23 11:16 12/09/23 11:16 12/09/23 11:16 12/09/23 11:16 12/09/23 11:16
[2023-12-09] MEDS: DILAUDID 0.25 MG IV ×2 (17:02→21:56)
--- NOTE | 2023-12-09 17:13 | PTCARENOTE ---
pt back from IR s/p I&D. pt is AAO*3, Vss, room air. c/o pain 02/08. Dr. juarez made aware. Dilaudid given to the pt as ordered. pt is bedrest for 2 hours. pt with Left Pelvis GRAHAM drain. family updated. pt comfortable. Hep gtt to be started at [address] Pulido. plan of care ongoing.
[2023-12-09] MEDS: TIMOPTIC 0.5% OPHTHALMIC SOLUTION BOTH EYES (20:04)
[2023-12-09] MEDS: XALATAN OPHTHALMIC SOLUTION 1 DROP BOTH EYES (20:05)
[2023-12-09] MEDS: LOPRESSOR 12.5 MG PO (20:05)
[2023-12-09 20:33] LABS: Sodium 126 mmol/L (135-145)
[2023-12-10] MEDS: DILAUDID 0.25 MG IV (02:08)
[2023-12-10 02:28] LABS: APTT 64.8 Sec (23.4-35.0)
[2023-12-10 03:44] VITALS: BP 121/62
[2023-12-10] MEDS: ZOSYN 50 IV ×4 (04:27→21:37)
[2023-12-10 07:00] VITALS: BP 114/56
[2023-12-10] MEDS: TYLENOL 650 MG PO ×2 (08:12→17:47)
[2023-12-10] MEDS: LOPRESSOR 12.5 MG PO ×2 (08:12→19:34)
[2023-12-10] MEDS: TIMOPTIC 0.5% OPHTHALMIC SOLUTION 1 DROP BOTH EYES (08:13)
[2023-12-10 09:13] LABS: Hematocrit 35.5 % (37.0-47.0); Hemoglobin 12.4 g/dL (12.0-16.0); Mean Corp Hgb Conc. 34.9 g/dL (33.0-37.0); Mean Corpuscular Hgb 30.4 pg (27.0-31.0); Mean Platelet Volume 10.8 fL (7.4-10.4); Platelet Count 384 10^3/uL (130-400); Red Blood Cell Count 4.08 10^6/uL (4.20-5.40); Red Cell Dist. Width 13.8 % (11.5-14.5); White Blood Cell Count 10.4 10^3/uL (4.8-10.8)
[2023-12-10 09:23] LABS: APTT 81.5 Sec (23.4-35.0); Vancomycin Random 12.9 ug/ml
[2023-12-10 10:40] LABS: Blood Urea Nitrogen 18 mg/dl (7-17); Calcium 9.2 mg/dl (8.4-10.2); Carbon Dioxide 26 mmol/L (22-30); Chloride 96 mmol/L (98-107); Estimated Creatinine Clearance 34 ml/min; Glucose 83 mg/dl (70-99); Potassium 4.1 mmol/L (3.5-5.1); Sodium 130 mmol/L (135-145)
--- NOTE | 2023-12-10 10:55 | PHA.VAN.FU ---
Vancomycin Assessment / Plan
- Assessment
Renal Function: SCR Decreasing
WBC's are: WNL
In the past 24 hrs, patient has been: Afebrile
Concomitant Antimicrobials: piperacillin/tazobactam
- Assessment - Therapeutic Drug Monitoring
Random Level: 12.9 - drawn ~21H after previous dose of 750mg
- Dosing Plan
Dosing by Level: Re-dose today (Vanc 750mg)
- Monitoring Plan
Random Level: 12/10 0600
- Follow Up
Pharmacy will continue to follow.
Vancomycin Follow UP
- -
Patient Age: 78
Patient Sex: Female
Vancomycin Day #: 3
Indication: Gi / Intra-Abdominal
Requesting Provider: Marcia Darling
Pertinent Antimicrobial Allergies:
No known pertinent antibiotic allergies
Height / Weight:
Height 5 ft 3 in
Actual Weight 67.495 kg
Pertinent Past Medical History: CKD
- Vital Signs / Lab Results
Temp Pulse Resp BP Pulse Ox
97.9 F 68 16 114/56 98
12/10/23 07:00 12/10/23 08:12 12/10/23 07:00 12/10/23 08:12 12/10/23 07:00
Lab Results - Hematology
12/08/23 12/08/23 12/09/23
12:13 18:40 08:38
WBC 19.3 H 18.7 H 11.3 H
12/10/23
08:38
WBC 10.4
Lab Results - Chemistry
12/08/23 12/08/23 12/09/23
12:13 20:02 08:38
BUN 48 H 45 H 35 H
Creatinine 1.5 H 1.4 H 1.5 H
Estimated Creat Clear 27 25
Albumin 4.4
12/10/23
08:38
BUN 18 H
Creatinine 1.1 H
Estimated Creat Clear 34
Albumin
Microbiology Results
12/09/23 16:11 Wound Culture - Preliminary
Abscess Gram Stain - Preliminary
12/08/23 17:19 Genital Culture - Preliminary
Vagina
12/08/23 16:58 Blood Culture - Preliminary
Blood/Venous No Growth in 24 hours- Final report to follow
Therapeutic Drug Monitoring
Random Vancomycin 12.9 ug/ml 12/10/23 08:38
[2023-12-10 11:00] VITALS: BP 103/55
--- NOTE | 2023-12-10 11:28 | W.PN.HOSP.TC ---
Today's Communication/Plan
-
Monitor vital signs see plan
Continue to follow cultures
Pelvic ultrasound
Lopressor as needed
Heparin drip for now
Leukocytosis improving
Continue antibiotics
Assessment / Plan
Assessment / Plan
General: Well Developed, Well Nourished and No Apparent Distress
HEENT: NormoCephalic, Moist mucous membranes and Atraumatic
Respiratory: Clear
Cardiac: S1/S2 and Regular Rhythm; No Murmur or Rub
GI: Soft, Non Tender, Non Distended and Normal Bowel Sounds
Musculoskeletal: No Edema
Neuro: AO x 3 and Nonfocal/grossly intact
Psych: Calm
LLQ pain likely from from tubo-ovarian abscess vs diverticular abscess
#sepsis likely 2/2 above
bcx NGTD
-CT abdomen pelvis with Diverticuli are present in the colon, most numerous in the sigmoid colon but there is no significant pericolonic inflammatory stranding. There is, however, a 3.2 cm gas containing fluid-filled structure suggesting abscess in
the left adnexa contiguous with both the sigmoid colon and the left side of the uterus with a 6 x 1 cm tubular area of fluid-filled density at its medial margin. The 6 cm tubular structure most likely is hydrosalpinx. I am uncertain whether the
presumed abscess is tubo-ovarian abscess or diverticular abscess
-iv Zosyn,vanco; narrow once have cx
-HIM ANALYST and colorectal following. Status post IR drainage 12/08. Now with GRAHAM drain. Monitor
pelvic ultrasound per gynecology
follow wound cx; moderate gram-positive cocci, rare gram-negative rods. path also sent which is pending
Colorectal surgery following, does not think this is diverticular in nature and suspect gynecological origin
#new onset atrial fib
-EKG with atrial fib
-ECHO 12/08 with EF 60 to 65%, aortic sclerosis without stenosis
-cw heparin drip for now
-Lopressor
CHADVASC 4
-cardiology following
#hyponatremia/CKD /hypercalcemia likely dehydration
-normal saline
Na now 130; monitor
Renal insufficiency
Unknown if has underlying CKD
Continue to monitor
Creatinine today 1.1
Hypercalcemia
Now improving
#hxt of HTN
Blood pressure here on lower end
-hold Norvasc, enalapril, Metoprol; continue to monitor blood pressure and restart once blood pressure high
#DVT prophylaxis
-heparin drip
#CODE status
-full code
I spent a total of 51 minutes with the patient or on the floor. More than 50% of this time involved counseling and coordination of care.
Anticipated Discharge: > 48 hours
Subjective/Interval History
-
Date of Service: December 10, 2023
has some pain
Objective Data
-
Labs:
Laboratory Results
12/10/23 12/10/23 12/10/23
02:06 08:38 15:30
WBC 10.4
Hgb 12.4
Hct 35.5 L
Plt Count 384
APTT 64.8 H 81.5 H Pending
Sodium 130 L
Potassium 4.1
Chloride 96 L
Carbon Dioxide 26
BUN 18 H
Creatinine 1.1 H
Glucose 83
Calcium 9.2
Vital Signs:
Vital Signs
Temp Pulse Resp BP Pulse Ox
97.9 F 68 16 114/56 98
12/10/23 07:00 12/10/23 08:12 12/10/23 07:00 12/10/23 08:12 12/10/23 07:00
I&O
12/09/23 12/10/23 12/11/23
06:59 06:59 06:59
Intake Total 1862.5 / 1862.5
Output Total
Balance 1846.5 / 1846.5
[2023-12-10] MEDS: HEPARIN 25000 UNITS/250 ML IV (11:42)
[2023-12-10] MEDS: NSS 1000 IV (12:05)
[2023-12-10] MEDS: VANCOCIN 150 IV (13:50)
--- NOTE | 2023-12-10 14:05 | W.PN.CD ---
Addendum entered and electronically signed by Joey Blas MD 12/10/23 16:38:
Preprocedural cardiac evaluation addendum:
-Patient can proceed with any procedures deemed necessary; she is clinically stable from a cardiac standpoint (low risk).
-Recommendations regarding anticoagulation as outlined below.
Original Note:
Today's Communication / Plan
-
-Leukocytosis and hypotension resolved.
-Heart rate controlled on metoprolol to tartrate 12.5 mg twice daily; continue.
-Continue heparin drip; transition to Eliquis 5 mg BID when done with procedures (creatinine is now less than 1.5).
-Echocardiogram yesterday revealed normal LVEF and no significant valvulopathy.
-Eventual outpatient ischemic evaluation (stress test).
-Reevaluate blood pressure as an outpatient; would not resume amlodipine, enalapril, or hydrochlorothiazide at this time.
-Cardiology will remain available on an as-needed basis; outpatient follow-up with Cardiology.
Impression / Plan
-
Background: 78F with hypertension, GERD, and IBS who presented to her PCP with abdominal pressure. She was found to be in atrial fibrillation. Abdominal pressure appears to be an abscess.
Sepsis, tubo-ovarian abscess versus diverticular abscess:
-Leukocytosis and hypotension resolved.
-IR drainage yesterday.
-Multiple Specialties following; management as per primary team.
New onset paroxysmal atrial fibrillation:
-Heart rate controlled on metoprolol to tartrate 12.5 mg twice daily; continue.
-Continue heparin drip; transition to Eliquis 5 mg BID when done with procedures (creatinine is now less than 1.5).
-[id number]: Score at least 4 (HTN, age 75 or more, female gender)
-Echocardiogram yesterday revealed normal LVEF and no significant valvulopathy.
-Eventual outpatient ischemic evaluation (stress test).
Hypertension:
-Outpatient antihypertensive medications were held due to hypotension.
-Continue metoprolol tartrate 12.5 mg twice daily.
-Reevaluate blood pressure as an outpatient; would not resume amlodipine, enalapril, or hydrochlorothiazide at this time.
Hyponatremia:
-Improving.
Former smoker:
-Continued cessation recommended.
Physical Exam
Vital Signs/Labs
Vital Signs
Temp Pulse Resp BP Pulse Ox
97.8 F 84 16 103/55 97
12/10/23 11:00 12/10/23 11:00 12/10/23 11:00 12/10/23 11:00 12/10/23 11:00
12/09/23 12/10/23 12/11/23
06:59 06:59 06:59
Actual Weight 67.495 kg
12/10/23 08:38
12/10/23 08:38
PT 15.6 Sec (11.4-14.6) H 12/09/23 08:38
INR 1.24 12/09/23 08:38
APTT 81.5 Sec (23.4-35.0) H 12/10/23 08:38
Physical Exam
Constitutional: No acute distress
EENT: Anicteric
Cardiovascular: Pedal edema is absent, Systolic murmur absent, Rhythm/rate is irregular and S1S2 is normal
Respiratory: Respiratory effort normal and Lungs clear to auscul.
GI: Soft
Neuro/Psych: AO x 3
Other: Skin (Warm, dry, intact)
Data Reviewed
-
Date of Service: December 10, 2023
EKG: Tracing Personally Visualized and interpreted (rate-controlled A-fib)
Medical Tests (PFT, Pathology etc): Discussed with Patient
Labs: Labs Reviewed by me
[2023-12-10 14:16] VITALS: BMI 26.4
[2023-12-10 15:00] VITALS: BP 124/59
[2023-12-10 16:07] LABS: APTT 105.4 Sec (23.4-35.0)
--- NOTE | 2023-12-10 18:47 | W.PN.OBG.DWH ---
Today's Communication / Plan
-
Stop heparin drip in prep for OR tomorrow. Will be restarted appropriately tomorrow.
NPO except clears at midnight
Clears may be continued until tomorrow am.
Cytotec PO tonight and in am to soften cervix.
OR consent obtained and on Chart.
Cardiac clearance given.
Assessment/Plan
-
1. Thickened endometrium on TVUS-etiologies include polyp, endometrial hyperplasia, endometrial intraepithelial neoplasia, endometrial cancer. Recommend further evaluation of endometrium with exam under anesthesia, D&C. Will collect aerobic and
anaerobic cultures from uterus. Discussed rationale for procedure, benefits, risks and complications which include but are not limited to infection, bleeding, injury to internal tissue, organs, structures, possible need for additional procedure(s).
Discussed risk of cervical stenosis, possible difficulty obtaining biopsy. She had opportunity to have her questions answered and these were answered to her satisfaction. Informed consent obtained.
- Cardiac clearance obtained.
-Heparin drip to stop tonight. May restart 12-24 hrs after procedure.
-NPO after midnight, clears ok til 08:00 am
2. Pelvic abscess-s/p percutaneous drainage. Continue on Zosyn and Vanco IV. Leukocytosis resolved. Awaiting culture ID/sensitivities. Pt will need reimaging to recheck collection. Consider ID consult once cultures back.
Awaiting cytology. Malignancy is a consideration given rarity of TOA in postmenopausal pt. Diverticulitis also possible consideration, though no stranding seen on CT. Colorectal service felt source more likely gynecologic.
Subjective Data
-
PT seen by me earlier tonight. Denies any postmenopausal bleeding. Feeling a bit sore from drain.
Son, daughter and [id number] were present.
Objective Data
-
Laboratory Results
12/10/23 08:38
12/10/23 08:38
Vital Signs
Temp Pulse Resp BP Pulse Ox
97.5 F 71 16 124/59 100
12/10/23 15:00 12/10/23 15:00 12/10/23 15:00 12/10/23 15:00 12/10/23 15:00
VSS
abd: soft ND mildly tender
Pelvic TVUS: uterus 8.2 x 2.0 x 2.8 cm. Endometrium poorly defined, measuring approximately 7mm. Suggestion of small cystic foci in endometrium suggestive of cystic hyperplasia. Ovaries were not visualized. Complex cystic collection posterior to the
uterus in the cul de sac 5.6 x 1.3 x 2.8 cm. Superimposed infection of collection cannot be excluded.
[2023-12-10 19:25] VITALS: BP 122/66
[2023-12-10] MEDS: TIMOPTIC 0.5% OPHTHALMIC SOLUTION BOTH EYES (19:34)
[2023-12-10] MEDS: CYTOTEC 200 MCG PO (21:32)
[2023-12-10] MEDS: XALATAN OPHTHALMIC SOLUTION 1 DROP BOTH EYES (21:38)
[2023-12-10] MEDS: IMODIUM 2 MG PO (23:22)
--- NOTE | 2023-12-10 23:48 | PTCARENOTE ---
Addendum entered by Deanna Fitzgerald 12/11/23 07:21:
Pt with multiple episodes of diarrhea throughout the night.
Original Note:
Patient with X1 episode incontinent of diarrhea. Pt tearful, requesting Imodium. House SNUFF BLENDER notified order placed, care is ongoing.
[2023-12-10 23:55] VITALS: BP 138/60
[2023-12-11] VITALS (14 sets, daily range): BP systolic 115–139; BP diastolic 60–81
[2023-12-11] MEDS: LOPRESSOR 5 MG IV (03:39)
[2023-12-11] MEDS: NSS 1000 IV ×2 (03:53→22:40)
[2023-12-11] MEDS: ZOSYN 50 IV ×4 (03:53→22:38)
[2023-12-11] MEDS: CYTOTEC 200 MCG PO (05:12)
[2023-12-11 06:31] LABS: Hematocrit 33.2 % (37.0-47.0); Hemoglobin 11.8 g/dL (12.0-16.0); Mean Corp Hgb Conc. 35.5 g/dL (33.0-37.0); Mean Corpuscular Hgb 30.4 pg (27.0-31.0); Mean Corpuscular Volume 85.6 fL (81.0-99.0); Mean Platelet Volume 10.5 fL (7.4-10.4); Platelet Count 342 10^3/uL (130-400); Red Blood Cell Count 3.88 10^6/uL (4.20-5.40); Red Cell Dist. Width 13.8 % (11.5-14.5)
[2023-12-11 06:35] LABS: APTT 39.6 Sec (23.4-35.0)
[2023-12-11 06:52] LABS: Blood Urea Nitrogen 12 mg/dl (7-17); Calcium 8.8 mg/dl (8.4-10.2); Carbon Dioxide 25 mmol/L (22-30); Chloride 100 mmol/L (98-107); Estimated Creatinine Clearance 37 ml/min; Glucose 88 mg/dl (70-99); Sodium 131 mmol/L (135-145); eGFR 56.95
--- NOTE | 2023-12-11 08:11 | PHA.VAN.FU ---
Vancomycin Assessment / Plan
- Assessment
Renal Function: SCR Decreasing
WBC's are: WNL
In the past 24 hrs, patient has been: Afebrile
Concomitant Antimicrobials: piperacillin/tazobactam
- Assessment - Therapeutic Drug Monitoring
Random Level: 14 - drawn ~16.5H after previous dose of 750mg
- Dosing Plan
Dosing by Level: Re-dose today (Vanc 750mg)
- Monitoring Plan
Random Level: 12/11 06
- Follow Up
Pharmacy will continue to follow.
Vancomycin Follow UP
- -
Patient Age: 78
Patient Sex: Female
Vancomycin Day #: 4
Indication: Gi / Intra-Abdominal
Requesting Provider: Marcia Darling
Pertinent Antimicrobial Allergies:
No known pertinent antibiotic allergies
Height / Weight:
Height 5 ft 3 in
Actual Weight 67.495 kg
Pertinent Past Medical History: CKD
- Vital Signs / Lab Results
Temp Pulse Resp BP Pulse Ox
99.3 F 78 16 125/60 99
12/11/23 03:05 12/11/23 06:14 12/11/23 03:05 12/11/23 06:14 12/11/23 03:05
Lab Results - Hematology
12/08/23 12/08/23 12/09/23
12:13 18:40 08:38
WBC 19.3 H 18.7 H 11.3 H
12/10/23 12/11/23
08:38 06:16
WBC 10.4 9.0
Lab Results - Chemistry
12/08/23 12/08/23 12/09/23
12:13 20:02 08:38
BUN 48 H 45 H 35 H
Creatinine 1.5 H 1.4 H 1.5 H
Estimated Creat Clear 27 25
Albumin 4.4
12/10/23 12/11/23
08:38 06:16
BUN 18 H 12
Creatinine 1.1 H 1.0
Estimated Creat Clear 34 37
Albumin
Microbiology Results
12/08/23 16:58 Blood Culture - Preliminary
Blood/Venous No Growth in 48 hours- Final report to follow
12/09/23 16:11 Wound Culture - Preliminary
Abscess Gram Stain - Preliminary
12/08/23 17:19 Genital Culture - Preliminary
Vagina
Therapeutic Drug Monitoring
Random Vancomycin 14.0 ug/ml 12/11/23 06:16
[2023-12-11] MEDS: LOPRESSOR 12.5 MG PO ×2 (09:07→20:15)
[2023-12-11] MEDS: TIMOPTIC 0.5% OPHTHALMIC SOLUTION 1 DROP BOTH EYES (09:08)
[2023-12-11] MEDS: TYLENOL 650 MG PO (09:24)
[2023-12-11] MEDS: VANCOCIN 150 IV (11:06)
--- NOTE | 2023-12-11 13:30 | PN.CDI ---
CDI
- -
CDI:
Physician Documentation Request
Admit Date: 12/08/23 16:32
Dear Doctor Brant,
Please review the following and provide your response in the progress notes.
Clinical Indicators:
PN, 12/09
#hyponatremia/CKD /hypercalcemia likely dehydration
#Renal insufficiency
#Unknown if has underlying CKD
#hxt of HTN
Laboratory Tests
12/08/23 12/08/23 12/09/23
12:13 20:02 08:38
Creatinine 1.5 H 1.4 H 1.5 H
eGFR 35.01 38.03 35.01
12/10/23 12/11/23
08:38 06:16
Creatinine 1.1 H 1.0
eGFR 50.80 56.95
Based on the above information and the clinical indicators in the record, please clarify in the Progress Notes which of the following most accurately represents the patient's renal status:
Acute kidney injury with no underlying CKD
Acute kidney injury on baseline CKD, (specify stage of CKD)
Renal Insufficiency
Abnormal lab value, clinically insignificant
Other (please specify)
Criteria for NATHALY*
1 Increase in serum creatinine by > or = to 0.3 mg/dL (> or = to 26.5 micromol/L) within 48 hours, OR
2 Increase in serum creatinine to > or = to 1.5 times baseline, which is known or presumed to have occurred within 7 days, OR
3 Urine volume < 0.5 nL/kg/hour for six hours
Stages of Chronic Kidney Disease*
Level Description GFR
G1 Normal or High >90
G2 Mildly decreased 60-89
G3a Mildly to moderately decreased 45-59
G3b Moderately to severely decreased 30-44
G4 Severely decreased 15-29
Use of terms such as suspected, likely, concern for, or probable (associated with a specific diagnosis that is being evaluated, monitored, or treated as if it exists) are acceptable and can be coded in the inpatient setting, when documented at the
time of discharge.
Thank you,
Cira Barron RN BSN CCDS
CDI Specialist
please contact via tiger text
Please use your independent medical judgment in providing your response.
*Source: Kidney Disease: Improving Global Outcomes (KDIGO) 2012
--- NOTE | 2023-12-11 15:35 | W.PN.UPDATE ---
Update Note
Progress Note Update
Pt seen in holding area for OR. No c/o, is feeling better. Reviewed rationale for the procedure as well as the procedure itself. Patient had no questions. denies abdominal pain or vaginal bleeding. Patient aware pathology report likely not available
until next week.
--- NOTE | 2023-12-11 16:41 | CM ---
CM met with Regla on 12/10/2023:
Regla lives with her long time partner in a 2 story home with 12 entry steps from the [facility]. She has been (I) amb and adl's prior to hospitalization and anticipates returning home with no services at discharge. She mentioned at the time of my
visit that she was told she may have cancer. Support provided.
Since my initial conversation with Regla, she had a D&C today with biopsy, not yet back in her room.
CM to follow to assist with discharge planning needs as identified during hospitalization.
Plan: CM to follow for d/c planning needs.
--- NOTE | 2023-12-11 17:12 | W.PN.HOSP.TC ---
Today's Communication/Plan
-
for OR today by ROVING INSPECTOR
continue abx
f/u cs report
Assessment / Plan
Assessment / Plan
LLQ pain likely from from tubo-ovarian abscess vs diverticular abscess
sepsis likely 2/2 above
-CT abdomen pelvis with Diverticuli are present in the colon, most numerous in the sigmoid colon but there is no significant pericolonic inflammatory stranding. There is, however, a 3.2 cm gas containing fluid-filled structure suggesting abscess in
the left adnexa contiguous with both the sigmoid colon and the left side of the uterus with a 6 x 1 cm tubular area of fluid-filled density at its medial margin. The 6 cm tubular structure most likely is hydrosalpinx. I am uncertain whether the
presumed abscess is tubo-ovarian abscess or diverticular abscess
-ROVING INSPECTOR and colorectal following. Status post IR drainage 12/08. Growing gram-negative bacilli/Streptococcus viridans
-Colorectal surgery following, does not think this is diverticular in nature and suspect gynecological origin
-CUSTOMER EXPERIENCE LEADER taking patient over for biopsy
2. new onset atrial fib
-EKG with atrial fib
-ECHO 12/08 with EF 60 to 65%, aortic sclerosis without stenosis
-Heparin drip held per Bench Precision Assembler request
-Lopressor
-cardiology following
3. Hypnatremia
-monitor Na level
4.Suspected CKDIIIA
-Unknown if has underlying CKD
-Continue to monitor
-Creatinine today 1.1
4. Hypercalcemia
Now improving
Essential hypertension
obesity
#DVT prophylaxis-heparin drip
#CODE status -full code
Anticipated Discharge: > 48 hours
Subjective/Interval History
-
Date of Service: December 11, 2023
Denies of having any abdominal pain/nausea
Afebrile overnight
Objective Data
-
Labs:
Laboratory Results
12/11/23
06:16
WBC 9.0
Hgb 11.8 L
Hct 33.2 L
Plt Count 342
APTT 39.6 H
Sodium 131 L
Potassium 4.0
Chloride 100
Carbon Dioxide 25
BUN 12
Creatinine 1.0
Glucose 88
Calcium 8.8
Vital Signs:
Vital Signs
Temp Pulse Resp BP Pulse Ox
99.0 F 66 14 134/65 98
12/11/23 16:45 12/11/23 16:55 12/11/23 16:55 12/11/23 16:55 12/11/23 16:55
I&O
12/10/23 12/11/23 12/12/23
06:59 06:59 06:59
Intake Total 1862.5 / 1862.5 960 / 960
Output Total
Balance 1846.5 / 1846.5 950 / 950
Review of Systems
-
Respiratory: Reports No Symptoms
Cardiac: Reports No Symptoms
Abdomen/GI: Reports No Symptoms
Physical Exam
-
General: No Apparent Distress and Comfortable
HEENT: Negative Oxygen
Respiratory: Clear to Auscultation
Cardiac: Regular Rhythm and S1/S2; Negative Murmur
GI: Soft, Nontender and Nondistended
Musculoskeletal: No Edema
Neuro: Awake, Alert, Oriented and No Motor Deficits
--- NOTE | 2023-12-11 18:03 | W.IMMPOSTOP ---
Surgical Immed Post Op Note
-
Primary Surgeon: Juan Ruiz MD
Assisting Surgeon:
Pre-op Diagnosis: endometrial hyperplasia
Post-op Diagnosis: same, cervical stenosis-path pending
Procedure Performed: Exam under anesthesia, Dilation and endocervical curettage, failed endometrial curettage, endometrial biopsy
Anesthesia Type: general with LMA-Lubin
Specimen / Cultures: endocervical aerobic and anaerobic cultures
Estimated Blood Loss: 1 cc
Complications: none
Operative Findings: cervical stenosis
--- NOTE | 2023-12-11 18:05 | W.PN.UPDATE ---
Update Note
Progress Note Update
Family (son Arpit) notified of completion of surgery while patient was in recovery room, findings given.
[2023-12-11] MEDS: TIMOPTIC 0.5% OPHTHALMIC SOLUTION BOTH EYES (20:16)
[2023-12-11] MEDS: VISBIOME 2 CAP PO (20:29)
[2023-12-11] MEDS: XALATAN OPHTHALMIC SOLUTION 1 DROP BOTH EYES (22:41)
[2023-12-12 03:44] VITALS: BP 143/83
[2023-12-12] MEDS: ZOSYN 50 IV ×2 (03:51→10:01)
[2023-12-12 06:57] LABS: Hematocrit 30.9 % (37.0-47.0); Hemoglobin 10.9 g/dL (12.0-16.0); Mean Corp Hgb Conc. 35.3 g/dL (33.0-37.0); Mean Corpuscular Hgb 30.7 pg (27.0-31.0); Mean Platelet Volume 10.4 fL (7.4-10.4); Platelet Count 302 10^3/uL (130-400); Red Blood Cell Count 3.55 10^6/uL (4.20-5.40); Red Cell Dist. Width 13.9 % (11.5-14.5); White Blood Cell Count 6.2 10^3/uL (4.8-10.8)
[2023-12-12 07:13] LABS: Blood Urea Nitrogen 7 mg/dl (7-17); Calcium 8.5 mg/dl (8.4-10.2); Carbon Dioxide 25 mmol/L (22-30); Chloride 104 mmol/L (98-107); Estimated Creatinine Clearance 37 ml/min; Glucose 81 mg/dl (70-99); Potassium 3.7 mmol/L (3.5-5.1); Sodium 134 mmol/L (135-145); eGFR 56.95
[2023-12-12 07:30] VITALS: BP 109/74
--- NOTE | 2023-12-12 07:43 | PHA.VAN.FU ---
Vancomycin Assessment / Plan
- Assessment
Renal Function: Stable
WBC's are: WNL
In the past 24 hrs, patient has been: Afebrile
Concomitant Antimicrobials: ZOSYN
- Assessment - Therapeutic Drug Monitoring
Random Level: 13
- Dosing Plan
Adjust Regimen to: 750MG Q24H
New Regimen Predicts: AUC (460), Peak (27.9), Trough (12.4)
- Monitoring Plan
Peak Level: 12/12 @0830
Trough Level: 12/13 @0530
- Follow Up
Pharmacy will continue to follow.
Vancomycin Follow UP
- -
Patient Age: 78
Patient Sex: Female
Vancomycin Day #: 5
Indication: Gi / Intra-Abdominal
Requesting Provider: Marcia Darling
Pertinent Antimicrobial Allergies:
No known pertinent antibiotic allergies
Height / Weight:
Height 5 ft 3 in
Actual Weight 67.495 kg
Pertinent Past Medical History: CKD
- Vital Signs / Lab Results
Temp Pulse Resp BP Pulse Ox
98.0 F 82 16 143/83 98
12/12/23 03:44 12/12/23 03:44 12/12/23 03:44 12/12/23 03:44 12/12/23 03:44
Lab Results - Hematology
12/09/23 12/10/23 12/11/23
08:38 08:38 06:16
WBC 11.3 H 10.4 9.0
12/12/23
06:08
WBC 6.2
Lab Results - Chemistry
12/09/23 12/10/23 12/11/23
08:38 08:38 06:16
BUN 35 H 18 H 12
Creatinine 1.5 H 1.1 H 1.0
Estimated Creat Clear 25 34 37
12/12/23
06:08
BUN 7
Creatinine 1.0
Estimated Creat Clear 37
Microbiology Results
12/09/23 16:11 Wound Culture - Preliminary
Abscess Gram negative bacilli
Viridans Streptococcus Group
Gram Stain - Preliminary
12/11/23 15:57 Gram Stain - Preliminary
Surgical Wound
12/08/23 16:58 Blood Culture - Preliminary
Blood/Venous No Growth in 72 hours- Final report to follow
12/08/23 17:19 Genital Culture - Final
Vagina
Therapeutic Drug Monitoring
Random Vancomycin 13.0 ug/ml 12/12/23 06:08
[2023-12-12] MEDS: LOPRESSOR 12.5 MG PO ×2 (08:42→20:50)
[2023-12-12] MEDS: VANCOCIN 150 IV (08:43)
[2023-12-12] MEDS: TIMOPTIC 0.5% OPHTHALMIC SOLUTION 1 DROP BOTH EYES (08:43)
[2023-12-12] MEDS: VISBIOME 1 CAP PO (08:43)
[2023-12-12 11:20] VITALS: BP 109/51
[2023-12-12] MEDS: TYLENOL 650 MG PO (12:36)
--- NOTE | 2023-12-12 14:03 | W.PN.HOSP.TC ---
Addendum entered and electronically signed by Mohit Guo MD 12/12/23 14:31:
Nurse notified that patient is not on heparin drip. Although order is active patient was not put back on heparin drip postprocedure.
No further planned procedure at this point and will start patient on Eliquis 5 mg twice daily starting from today and evening.
Heparin drip ordered discontinued.
Addendum entered and electronically signed by Mohit Guo MD 12/12/23 14:25:
Adjust diagnosis
NATHALY on CKD stage IIIa -creatinine normalized
Original Note:
Today's Communication/Plan
-
see note
Assessment / Plan
Assessment / Plan
LLQ pain likely from from tubo-ovarian abscess vs diverticular abscess
sepsis likely 2/2 above
-CT abdomen pelvis with Diverticula are present in the colon, most numerous in the sigmoid colon but there is no significant pericolonic inflammatory stranding. There is, however, a 3.2 cm gas containing fluid-filled structure suggesting abscess in
the left adnexa contiguous with both the sigmoid colon and the left side of the uterus with a 6 x 1 cm tubular area of fluid-filled density at its medial margin. The 6 cm tubular structure most likely is hydrosalpinx. I am uncertain whether the
presumed abscess is tubo-ovarian abscess or diverticular abscess
-WILDLIFE POLICY PROFESSIONAL and colorectal following. Status post IR drainage 12/08. GRAHAM drain culture growing Citrobacter/klebsieall/citrobacter and susceptibility reviewed
-Colorectal surgery following, does not think this is diverticular in nature and suspect gynecological origin
-DAYCARE DIRECTOR took to OR endocervical curettage was able to be done. Unfortunately endometrial curettage could not be done as could not be advanced post cervix
-Discussed with IRAD for possible discontinuation of GRAHAM drain. Will evaluate
-ID consulted for further help with antibiotic.
2. new onset atrial fib
-EKG with atrial fib
-ECHO 12/08 with EF 60 to 65%, aortic sclerosis without stenosis
-Currently back on heparin drip, will transition to Eliquis at discharge.
-Lopressor
-cardiology following
3. Hyponatremia
-monitor Na level
4.Suspected CKDIIIA
-Unknown if has underlying CKD
-Continue to monitor
-Creatinine today 1.1
4. Hypercalcemia
Now improving
Essential hypertension
obesity
#DVT prophylaxis-heparin drip
#CODE status -full code
Discussed with Patient Family at Bedside.
Anticipated Discharge: Within 24 hours
Subjective/Interval History
-
Date of Service: December 12, 2023
no new problems
Patient feels has history of IBS, and worried about diarrhea
Objective Data
-
Labs:
Laboratory Results
12/12/23
06:08
WBC 6.2
Hgb 10.9 L
Hct 30.9 L
Plt Count 302
Sodium 134 L
Potassium 3.7
Chloride 104
Carbon Dioxide 25
BUN 7
Creatinine 1.0
Glucose 81
Calcium 8.5
Vital Signs:
Vital Signs
Temp Pulse Resp BP Pulse Ox
98.0 F 75 16 109/51 99
12/12/23 11:20 12/12/23 11:20 12/12/23 11:20 12/12/23 11:20 12/12/23 11:20
I&O
12/11/23 12/12/23 12/13/23
06:59 06:59 06:59
Intake Total 960 / 960 820 / 820
Output Total
Balance 950 / 950 810 / 810
Review of Systems
-
Respiratory: Reports No Symptoms
Cardiac: Reports No Symptoms
Abdomen/GI: Reports Diarrhea
Physical Exam
-
General: No Apparent Distress and Comfortable
HEENT: Negative Oxygen
Respiratory: Clear to Auscultation
Cardiac: Regular Rhythm and S1/S2; Negative Murmur
GI: Soft, Nontender and Nondistended
Musculoskeletal: No Edema
Neuro: Awake, Alert, Oriented and No Motor Deficits
--- NOTE | 2023-12-12 14:10 | CON.ID ---
Consultation
-
Date/Time Consultation Requested: December 12, 2023 1325
Date/Time Consultation Performed: December 12, 2023 1410
Requesting Provider: Dr. Mohit Guo
Performing Provider: Dr. Maricruz Landa
Reason for Consultation: Tubo-ovarian abscess
Chief Complaint / Past History
Chief Complaint
Left lower abdominal pressure and A-fib.
History of Present Illness
78-year-old female with history of IBS who has been having left lower abdominal pressure for approximately 3 weeks. No fevers or chills. She then developed new onset atrial fibrillation and her PCP sent her to the hospital December 07. White count
19.3. CAT scan of the abdomen/pelvis showed left adnexal abscess, no colon inflammation, suspicious for hydrosalpinx. She was started on vancomycin and Zosyn. On December 08, IR placed drain with 10 cc of green fluid sent for culture. On December 10,
RAW SAMPLER attempted endometrial curettage which failed due to unable to dilate the cervix. Endocervical culture negative to date. Genital culture negative for GC/chlamydia. She reports no sexual activity for the past 5 years. No history of
diverticulitis. She is now feeling better since the percutaneous drainage. No current diarrhea.
Past History
Additional Past Medical History:
HTN
GERD
IBS
CKD
Cholecystectomy
Allergy History:
lisinopril Allergy (Verified 12/08/23 20:30)
abdominal cramping
unknown drug Allergy (Uncoded 12/08/23 20:31)
Unknown
Medications Reviewed: Yes
Current Antibiotics:
Zosyn day 5
Vancomycin day 5
Social History
Tobacco: Former Smoker
Alcohol: None
Drug: None
Personal:
Family History
Family History: Not Pertinent
Review of Systems
Review of Systems
General: Negative Fever or Chills
HEENT: Negative Stiff Neck, Sinus Problems, Headache or Pharyngitis
Respiratory: Negative Dyspnea or Cough
Gasteroenterology: Negative Nausea or Vomiting
Genital / Urological: Negative Dysuria or Flank Pain
Endocrine: Weakness
Neurological: Negative Headache or Dizziness
All systems: All other systems were reviewed and were negative
Vital Signs
Temp Pulse Resp BP Pulse Ox
98.0 F 75 16 109/51 99
12/12/23 11:20 12/12/23 11:20 12/12/23 11:20 12/12/23 11:20 12/12/23 11:20
Physical Exam
Physical Exam
Constitutional: No Acute Distress and Comfortable
Eyes: No Conjunctival Hemorrhage and Sclera Anicteric
Cardiovascular: Regular Rate and S1/S2
Pulmonary: Clear
Gastrointestinal: Soft, Non Tender, Non Distended and Other (Left GRAHAM drain with cloudy serous fluid.)
Genito-Urinary: Negative CVA Tenderness
Extremities: Negative Edema
Skin: Negative Jaundice
Neurological: AO x 3
Lab / Diagnostic Study Results
12/12/23 06:08
12/12/23 06:08
Abs Immat Gran (auto) 0.3 10^3/uL (0-0.05) H 12/08/23 12:13
Absolute Neuts (auto) 15.9 10^3/uL (1.4-6.5) H 12/08/23 12:13
Absolute Lymphs (auto) 1.4 10^3/uL (1.2-3.4) 12/08/23 12:13
Absolute Monos (auto) 1.5 10^3/uL (0.1-0.6) H 12/08/23 12:13
Absolute Basos (auto) 0.1 10^3/uL (0-0.2) 12/08/23 12:13
Immature Gran % 1.5 % (0-0.5) H 12/08/23 12:13
Neutrophils % 82.2 % (42.2-75.2) H 12/08/23 12:13
Lymphocytes % 7.5 % (20.5-51.1) L 12/08/23 12:13
Monocytes % 7.8 % (1.7-9.3) 12/08/23 12:13
Eosinophils % 0.3 % (0-6) 12/08/23 12:13
Basophils % 0.7 % (0-2) 12/08/23 12:13
PT 15.6 Sec (11.4-14.6) H 12/09/23 08:38
INR 1.24 12/09/23 08:38
Microbiology Results
Micro:
12/11/23 15:57 Anaerobic Culture - Preliminary
Endo-cervical Culture pending. Anaerobic cultures are examined after 3
days incubation. Additional information to follow.
12/11/23 15:57 Wound Culture - Preliminary
Surgical Wound No growth
Gram Stain - Preliminary
12/09/23 16:11 Wound Culture - Final
Abscess Citrobacter koseri
Klebsiella pneumoniae
Viridans Streptococcus Group
Gram Stain - Final
12/08/23 16:58 Blood Culture - Preliminary
Blood/Venous No Growth in 72 hours- Final report to follow
12/08/23 17:19 Genital Culture - Final
Vagina
12/08/23 CT a/p: There is, however, a 3.2 cm gas containing fluid-filled structure suggesting abscess in the left adnexa contiguous with both the sigmoid colon and the left side of the uterus with a 6 x 1 cm tubular area of fluid-filled density at its
medial margin. The 6 cm tubular structure most likely is hydrosalpinx. I am uncertain whether the presumed abscess is tubo-ovarian abscess or diverticular abscess
12/10/23 Transvaginal US: There is a complex predominantly cystic collection within the pelvic cul-de-sac.
Assessment / Plan
# Left tubo-ovarian abscess
- s/p perc drain
- abscess cx: strep viridans, Citrobacter, Klebsiella
- Narrow Vanco/Zosyn to Unasyn 3g IV q6.
- At time of discharge, transition to Augmentin 500mg po bid through 12/23/23
# Leukocytosis due to infection
- trending down
-continue to follow
# NATHALY resolved
[2023-12-12 15:25] VITALS: BP 114/63
--- NOTE | 2023-12-12 15:28 | W.PN.GYN ---
Today's Communication / Plan
-
1. Thickened endometrium on TVUS-etiologies include polyp, endometrial hyperplasia, endometrial intraepithelial neoplasia, endometrial cancer.
--Endometrial sampling done under anesthesia yesterday (with endometrial pipelle; D&C not possible due to cervical stenosis). Patient doing [id number]. No VB. Will follow endometrial pathology results
2. Pelvic abscess- s/p percutaneous drainage. Drain remains in place. Clinically improving on Zosyn and Vanco IV. Leukocytosis resolved. Pelvic fluid cultures resulted with Citrobacter Koseri, Klebsiella pneumoniae and Strep Viridans. cytology from
pelvic fluid negative for malignancy-- results reviewed with patient and family.
--Agree with ID consult to determine best abx regimen and when to transition to PO abx
--Pt will need reimaging to monitor for improvement of the abscess. Consider repeat CT within the next couple of days.
--Consider removal of abdominal drain, as output is minimal at this point. Drain management per IR.
3. A-fib-- management per primary team. Pt transitioned from Heparin to Eliquis today.
Physician Note
-
Pt seen and examined by me at about 1330 today.
Regla is feeling better today. Feels LLQ pain is improving. Tolerating PO, but still not much of an appetite. Had some diarrhea 2 days ago and a little bit yesterday, none today. Denies n/v. Denies f/c. Denies VB.
PE: VS reviewed- see below
Gen: NAD, WD/WN
Abd: soft, NTTP, ND
Drain in place, minimal serous output in bulb
Extr: no calf TTP b/l
Labs reviewed--see below.
No new imaging to review.
Assessment/Plan
1. Thickened endometrium on TVUS-etiologies include polyp, endometrial hyperplasia, endometrial intraepithelial neoplasia, endometrial cancer.
--Endometrial sampling done under anesthesia yesterday (with endometrial pipelle; D&C not possible due to cervical stenosis). Patient doing [id number]. No VB. Will follow pathology results
2. Pelvic abscess- s/p percutaneous drainage. Drain remains in place. Clinically improving on Zosyn and Vanco IV. Leukocytosis resolved. Pelvic fluid cultures resulted with Citrobacter Koseri, Klebsiella pneumoniae and Strep Viridans. cytology from
pelvic fluid negative for malignancy-- results reviewed with patient and family.
--Agree with ID consult to determine best abx regimen and when to transition to PO abx
--Pt will need reimaging to monitor for improvement of the abscess. Consider repeat CT within the next couple of days.
--Consider removal of abdominal drain, as output is minimal at this point. Drain management per IR.
3. A-fib-- management per primary team. Pt transitioned from Heparin to Eliquis today.
Vital Signs / Labs
-
Vital Signs and Labs:
GRAHAM drain culture growing Citrobacter/klebsieall/citrobacter and susceptibility reviewed
Cytology from pelvic fluid 12/09/23: neg for malignancy
Vaginal culture from 12/08/23: neg for GC and garnerella vaginalis
Wound culture from uterus 12/10: prelim no growth to date; anaerobic culture pending
Endometrial sampling from 12/11/23: Pathology PENDING
Temp Pulse Resp BP Pulse Ox
98.0 F 75 16 109/51 99
12/12/23 11:20 12/12/23 11:20 12/12/23 11:20 12/12/23 11:20 12/12/23 11:20
12/12/23 06:08
12/12/23 06:08
12/12/23
06:08
RBC 3.55 L
Hgb 10.9 L
Hct 30.9 L
Sodium 134 L
Imaging Data
-
no new imaging to review
[2023-12-12] MEDS: UNASYN IV ×2 (16:38→23:46)
[2023-12-12 19:59] VITALS: BP 134/72
[2023-12-12] MEDS: ELIQUIS 5 MG PO (20:50)
[2023-12-12] MEDS: TIMOPTIC 0.5% OPHTHALMIC SOLUTION BOTH EYES (20:50)
[2023-12-12] MEDS: XALATAN OPHTHALMIC SOLUTION 1 DROP BOTH EYES (21:02)
[2023-12-12 23:47] VITALS: BP 128/62
[2023-12-13] VITALS (7 sets, daily range): BP systolic 130–158; BP diastolic 66–90
--- NOTE | 2023-12-13 01:30 | VATNOTE ---
VAT paged to assess patient's left arm as patient reported pain at PIV sites. Primary RN removed PIV's and hand/ wrist area appeared swollen with fluid collection in wrist area. PIV's appeared to have infiltrated. New PIV established in right arm.
Patient's left arm elevated on pillow and warm compress applied. Primary RN notified, will continue to monitor.
[2023-12-13] MEDS: UNASYN IV ×4 (05:33→23:03)
[2023-12-13 07:01] LABS: Hematocrit 34.3 % (37.0-47.0); Hemoglobin 11.8 g/dL (12.0-16.0); Mean Corp Hgb Conc. 34.4 g/dL (33.0-37.0); Mean Corpuscular Hgb 31.1 pg (27.0-31.0); Mean Corpuscular Volume 90.3 fL (81.0-99.0); Mean Platelet Volume 10.6 fL (7.4-10.4); Platelet Count 377 10^3/uL (130-400); Red Cell Dist. Width 13.8 % (11.5-14.5); White Blood Cell Count 8.7 10^3/uL (4.8-10.8)
[2023-12-13 07:13] LABS: Blood Urea Nitrogen 5 mg/dl (7-17); Calcium 9.2 mg/dl (8.4-10.2); Carbon Dioxide 24 mmol/L (22-30); Chloride 105 mmol/L (98-107); Estimated Creatinine Clearance 41 ml/min; Glucose 89 mg/dl (70-99); Potassium 3.4 mmol/L (3.5-5.1); Sodium 136 mmol/L (135-145); eGFR > 60.00
[2023-12-13] MEDS: ELIQUIS 5 MG PO ×2 (08:58→20:13)
[2023-12-13] MEDS: VISBIOME 1 CAP PO (08:58)
[2023-12-13] MEDS: LOPRESSOR 12.5 MG PO ×2 (08:58→20:13)
[2023-12-13] MEDS: TIMOPTIC 0.5% OPHTHALMIC SOLUTION 1 DROP BOTH EYES (08:59)
--- NOTE | 2023-12-13 10:32 | VATNOTE ---
VAT ROUNDS: Left arm infiltrate has been resolved. No c/o pain.
--- NOTE | 2023-12-13 11:13 | W.PN.HOSP.TC ---
Today's Communication/Plan
-
see note
Assessment / Plan
Assessment / Plan
LLQ pain likely from from tubo-ovarian abscess vs diverticular abscess
sepsis likely 2/2 above
-CT abdomen pelvis with Diverticula are present in the colon, most numerous in the sigmoid colon but there is no significant pericolonic inflammatory stranding. There is, however, a 3.2 cm gas containing fluid-filled structure suggesting abscess in
the left adnexa contiguous with both the sigmoid colon and the left side of the uterus with a 6 x 1 cm tubular area of fluid-filled density at its medial margin. The 6 cm tubular structure most likely is hydrosalpinx. I am uncertain whether the
presumed abscess is tubo-ovarian abscess or diverticular abscess
-BULL CHAIN OPERATOR and colorectal following. Status post IR drainage 12/08. GRAHAM drain culture growing Citrobacter/klebsieall/citrobacter and susceptibility reviewed
-Colorectal surgery following, does not think this is diverticular in nature and suspect gynecological origin
-HOME TEACHING GRADES 9 THRU 12 TEACHER took to OR endocervical curettage was able to be done. Unfortunately endometrial curettage could not be done as could not be advanced post cervix
-Repeat CT scan has been ordered today, based on findings patient may able to have GRAHAM drain removed.
-ID evaluated and recommended for narrowing antibiotics to IV Unasyn while in hospital, can be discharged on oral Augmentin 500 mg twice daily through 12/23/23 at discharge
2. new onset atrial fib
-EKG with atrial fib
-ECHO 12/08 with EF 60 to 65%, aortic sclerosis without stenosis
-Patient has been resumed back on Eliquis
-Lopressor
-cardiology following
3. Hyponatremia
-monitor Na level
4.NATHALY on presumed CKDIIIA
-Unknown if has underlying CKD
-Continue to monitor
4. Hypercalcemia
Now improving
Essential hypertension
obesity
#DVT prophylaxis- eliquis
#CODE status -full code
Discussed with Patient Family at Bedside.
Care plan discussed with HOME TEACHING GRADES 9 THRU 12 TEACHER
Anticipated Discharge: 24 - 48 hours
Subjective/Interval History
-
Date of Service: December 13, 2023
Resting comfortably in bed
Complaining some lower abdominal discomfort
Objective Data
-
Labs:
Laboratory Results
12/13/23
06:13
WBC 8.7
Hgb 11.8 L
Hct 34.3 L
Plt Count 377 D
Sodium 136
Potassium 3.4 L
Chloride 105
Carbon Dioxide 24
BUN 5 L
Creatinine 0.9
Glucose 89
Calcium 9.2
Vital Signs:
Vital Signs
Temp Pulse Resp BP Pulse Ox
98.1 F 95 18 153/90 98
12/13/23 07:30 12/13/23 08:58 12/13/23 07:30 12/13/23 08:58 12/13/23 08:50
I&O
12/12/23 12/13/23 12/14/23
06:59 06:59 06:59
Intake Total 820 / 820 1520 / 1520
Output Total
Balance 810 / 810 1512 / 1512
Review of Systems
-
Respiratory: Reports No Symptoms
Cardiac: Reports No Symptoms
Abdomen/GI: Reports Abdominal Pain (lower abd); Denies Nausea or Vomiting
Physical Exam
-
General: No Apparent Distress and Comfortable
HEENT: Negative Oxygen
Respiratory: Clear to Auscultation
Cardiac: Regular Rhythm and S1/S2; Negative Murmur
GI: Soft, Nontender, Nondistended and Other (Lower lef quadrant GRAHAM drain - serous drainage)
Musculoskeletal: No Edema
Neuro: Awake, Alert, Oriented and No Motor Deficits
--- NOTE | 2023-12-13 12:56 | W.PN.GYN ---
Today's Communication / Plan
-
-- Agree with ID involvement to effectively narrow abx regimen-- IV Unasyn while in-patient with plan to transition to PO Augmentin on discharge (through 12/22)
--Recommend re-imaging with CT to monitor for improvement of the abscess. CT Scan ordered for today
--Consider removal of abdominal drain, as output is minimal at this point. Reasonable to wait until after CT results. Drain management per IR.
Physician Note
-
:
Pt seen and examined by me at about 1030 today.
Regla is feeling pretty well, but is anxious to get the abdominal drain removed and go home hopefully soon. Feels LLQ pain is improved. Tolerating PO, but still not much of an appetite. Denies n/v/d/c. Denies f/c. Denies VB.
PE: VS reviewed- see below
Gen: NAD, WD/WN
Abd: soft, NTTP, ND
Drain in place, minimal serous output in bulb
Extr: no calf TTP b/l
Labs reviewed--see below.
No new imaging to review.
Assessment/Plan
1. Thickened endometrium on TVUS-etiologies include polyp, endometrial hyperplasia, endometrial intraepithelial neoplasia, endometrial cancer.
--Endometrial sampling done under anesthesia on 12/10 (with endometrial pipelle; D&C not possible due to cervical stenosis). Patient doing well-post procedure. No
VB. Will follow pathology results
2. Pelvic abscess- s/p percutaneous drainage. Drain remains in place with minimal serous output. Leukocytosis resolved. Pelvic fluid cultures resulted with Citrobacter Koseri, Klebsiella pneumoniae and Strep Viridans. Cytology from pelvic fluid
negative for malignancy.
-- ID consulted and Abx narrowed to IV Unasyn while in-patient with plan to transition to PO Augmentin on discharge (through 12/22)
--Recommend re-imaging with CT to monitor for improvement of the abscess. CT Scan ordered
--Consider removal of abdominal drain, as output is minimal at this point. Reasonable to wait until after CT results. Drain management per IR.
3. A-fib-- management per primary team. Pt transitioned from Heparin to Eliquis
Vital Signs / Labs
-
Vital Signs and Labs:
GRAHAM drain culture growing Citrobacter/klebsieall/citrobacter and susceptibility reviewed
Cytology from pelvic fluid 12/09/23: neg for malignancy
Vaginal culture from 12/08/23: neg for GC and garnerella vaginalis
Wound culture from uterus 12/10: prelim no growth to date; anaerobic culture pending
Endometrial sampling from 12/11/23: Pathology PENDING
Temp Pulse Resp BP Pulse Ox
97.9 F 82 16 143/75 99
12/13/23 11:15 12/13/23 11:15 12/13/23 11:15 12/13/23 11:15 12/13/23 11:15
12/13/23 06:13
12/13/23 06:13
12/13/23
06:13
RBC 3.80 L
Hgb 11.8 L
Hct 34.3 L
MCH 31.1 H
MPV 10.6 H
Potassium 3.4 L
BUN 5 L
--- NOTE | 2023-12-13 13:45 | W.PN.ID1 ---
Date of Service
Date of Service: December 13, 2023
Today's Communication
See below.
Assessment / Plan
# Left tubo-ovarian abscess
- s/p perc drain
- abscess cx: strep viridans, Citrobacter, Klebsiella
-For repeat CT to follow abscess/drain removal.
- Continue Unasyn 3g IV q6 (d6 abx)
- At time of discharge, transition to Augmentin 875 mg po bid through 12/23/23 or longer pending follow-up CT.
# Leukocytosis resolved.
# NATHALY resolved
#Additional Past Medical History:
HTN
GERD
IBS
CKD
Cholecystectomy
Chief Complaint
-: Other (pelvic abscess)
Subjective / Review of Systems
Continues to feel improved.
Vital Signs / Physical Exam
Vital Signs
Vital Signs
Temp Pulse Resp BP Pulse Ox
97.9 F 82 16 143/75 99
12/13/23 11:15 12/13/23 11:15 12/13/23 11:15 12/13/23 11:15 12/13/23 11:15
Physical Exam
Constitutional: No Acute Distress and Comfortable
Gastrointestinal: Soft, Non Tender, Non Distended and Other (walter drain small amt cloudy serous fluid.)
Objective Data
Lab Data
Lab Results
12/13/23 06:13
12/13/23 06:13
PT 15.6 Sec (11.4-14.6) H 12/09/23 08:38
INR 1.24 12/09/23 08:38
APTT 39.6 Sec (23.4-35.0) H 12/11/23 06:16
Estimated Creat Clear 41 ml/min 12/13/23 06:13
Total Bilirubin 1.2 mg/dl (0.2-1.3) 07/09/24 12:13
AST 30 U/L (14-36) 12/08/23 12:13
ALT 16 U/L (0-35) 12/08/23 12:13
Alkaline Phosphatase 87 U/L (38-126) 12/08/23 12:13
Most recent labs reviewed.
Micro Results:
12/11/23 15:57 Anaerobic Culture - Preliminary
Endo-cervical Culture pending. Anaerobic cultures are examined after 3
days incubation. Additional information to follow.
12/11/23 15:57 Wound Culture - Preliminary
Surgical Wound No growth
Gram Stain - Preliminary
12/08/23 16:58 Blood Culture - Preliminary
Blood/Venous No Growth in 4 days- Final report to follow
12/09/23 16:11 Wound Culture - Final
Abscess Citrobacter koseri
Klebsiella pneumoniae
Viridans Streptococcus Group
Gram Stain - Final
12/08/23 17:19 Genital Culture - Final
Vagina
12/08/23 CT a/p: There is, however, a 3.2 cm gas containing fluid-filled structure suggesting abscess in the left adnexa contiguous with both the sigmoid colon and the left side of the uterus with a 6 x 1 cm tubular area of fluid-filled density at its
medial margin. The 6 cm tubular structure most likely is hydrosalpinx. I am uncertain whether the presumed abscess is tubo-ovarian abscess or diverticular abscess
12/10/23 Transvaginal US: There is a complex predominantly cystic collection within the pelvic cul-de-sac.
[2023-12-13] MEDS: TYLENOL 650 MG PO ×2 (17:09→21:09)
[2023-12-13] MEDS: XALATAN OPHTHALMIC SOLUTION 1 DROP BOTH EYES (20:13)
[2023-12-13] MEDS: TIMOPTIC 0.5% OPHTHALMIC SOLUTION BOTH EYES (20:13)
[2023-12-14 03:16] VITALS: BP 123/65
[2023-12-14] MEDS: UNASYN IV ×2 (05:19→12:48)
[2023-12-14 06:26] LABS: Hematocrit 32.5 % (37.0-47.0); Hemoglobin 11.4 g/dL (12.0-16.0); Mean Corp Hgb Conc. 35.1 g/dL (33.0-37.0); Mean Corpuscular Hgb 30.6 pg (27.0-31.0); Mean Corpuscular Volume 87.1 fL (81.0-99.0); Mean Platelet Volume 10.6 fL (7.4-10.4); Platelet Count 381 10^3/uL (130-400); Red Blood Cell Count 3.73 10^6/uL (4.20-5.40); White Blood Cell Count 9.8 10^3/uL (4.8-10.8)
[2023-12-14 07:22] VITALS: BP 172/96
[2023-12-14] MEDS: TIMOPTIC 0.5% OPHTHALMIC SOLUTION 1 DROP BOTH EYES (08:15)
[2023-12-14] MEDS: ELIQUIS 5 MG PO (08:15)
[2023-12-14] MEDS: LOPRESSOR 12.5 MG PO (08:15)
[2023-12-14] MEDS: VISBIOME 1 CAP PO (08:15)
[2023-12-14] MEDS: VASOTEC 40 MG PO (09:50)
[2023-12-14] MEDS: TYLENOL 650 MG PO (09:53)
[2023-12-14 10:53] VITALS: BP 158/85
--- NOTE | 2023-12-14 11:43 | W.PN.ID1 ---
Date of Service
Date of Service: December 14, 2023
Today's Communication
- At time of discharge, transition to Augmentin 875 mg po bid x 14 more days.
Assessment / Plan
# Left tubo-ovarian abscess
- s/p perc drain
- abscess cx: strep viridans, Citrobacter, Klebsiella
-repeat CT decreased size of abscess now 1.9 cm
- Continue Unasyn 3g IV q6 (d6 abx)
- At time of discharge, transition to Augmentin 875 mg po bid x 14 more days.
# Leukocytosis resolved.
# NATHALY resolved
#Additional Past Medical History:
HTN
GERD
IBS
CKD
Cholecystectomy
Chief Complaint
-: Other (pelvic abscess)
Subjective / Review of Systems
feels well.
Vital Signs / Physical Exam
Vital Signs
Vital Signs
Temp Pulse Resp BP Pulse Ox
98.1 F 83 18 165/99 96
12/14/23 07:22 12/14/23 09:50 12/14/23 07:22 12/14/23 09:50 12/14/23 07:22
Physical Exam
Constitutional: No Acute Distress and Comfortable
Cardiovascular: Regular Rate and S1/S2
Pulmonary: Clear
Gastrointestinal: Soft and Non Tender
Objective Data
Lab Data
Lab Results
12/14/23 04:47
12/13/23 06:13
PT 15.6 Sec (11.4-14.6) H 12/09/23 08:38
INR 1.24 12/09/23 08:38
APTT 39.6 Sec (23.4-35.0) H 12/11/23 06:16
Estimated Creat Clear 41 ml/min 12/13/23 06:13
Total Bilirubin 1.2 mg/dl (0.2-1.3) 12/08/23 12:13
AST 30 U/L (14-36) 12/08/23 12:13
ALT 16 U/L (0-35) 12/08/23 12:13
Alkaline Phosphatase 87 U/L (38-126) 12/08/23 12:13
Most recent labs reviewed.
Micro Results:
12/11/23 15:57 Anaerobic Culture - Preliminary
Endo-cervical NO ANAEROBES ISOLATED
12/11/23 15:57 Wound Culture - Preliminary
Surgical Wound No growth
Gram Stain - Preliminary
12/08/23 16:58 Blood Culture - Final
Blood/Venous No Growth - Final Report
12/09/23 16:11 Wound Culture - Final
Abscess Citrobacter koseri
Klebsiella pneumoniae
Viridans Streptococcus Group
Gram Stain - Final
12/08/23 17:19 Genital Culture - Final
Vagina
12/08/23 CT a/p: There is, however, a 3.2 cm gas containing fluid-filled structure suggesting abscess in the left adnexa contiguous with both the sigmoid colon and the left side of the uterus with a 6 x 1 cm tubular area of fluid-filled density at its
medial margin. The 6 cm tubular structure most likely is hydrosalpinx. I am uncertain whether the presumed abscess is tubo-ovarian abscess or diverticular abscess
12/10/23 Transvaginal US: There is a complex predominantly cystic collection within the pelvic cul-de-sac.
--- NOTE | 2023-12-14 12:21 | W.PN.HOSP.TC ---
Addendum entered and electronically signed by Juliano Bryan MD 12/14/23 15:13:
Drain is discontinued by IR. Patient denies any complaints. Discharge home today on p.o. antibiotics per ID recommendation. Patient will follow-up with consultants outpatient
Time of discharge 39 minutes
Original Note:
Today's Communication/Plan
-
Monitor vital signs see plan
Continue antibiotics, on discharge p.o. antibiotics
IR consulted for drain check with possible removal
Hopeful discharge later today
Discussed with daughter over the phone
Assessment / Plan
Assessment / Plan
LLQ pain likely from from tubo-ovarian abscess vs diverticular abscess
sepsis likely 2/2 above
-CT abdomen pelvis with Diverticula are present in the colon, most numerous in the sigmoid colon but there is no significant pericolonic inflammatory stranding. There is, however, a 3.2 cm gas containing fluid-filled structure suggesting abscess in
the left adnexa contiguous with both the sigmoid colon and the left side of the uterus with a 6 x 1 cm tubular area of fluid-filled density at its medial margin. The 6 cm tubular structure most likely is hydrosalpinx. I am uncertain whether the
presumed abscess is tubo-ovarian abscess or diverticular abscess
-WEB WEAVER and colorectal following. Status post IR drainage 12/08. GRAHAM drain culture growing Citrobacter/klebsieall/citrobacter and susceptibility reviewed
-Colorectal surgery following, does not think this is diverticular in nature and suspect gynecological origin
-BINDERY MACHINE FEEDER OFFBEARER took to OR endocervical curettage was able to be done. Unfortunately endometrial curettage could not be done as could not be advanced post cervix
-Repeat CT scan 12/12 with a significantly decreased in size abscess. IR consulted for possible drainage catheter removal
-ID evaluated and recommended for narrowing antibiotics to IV Unasyn while in hospital, At time of discharge, transition to Augmentin 875 mg po bid x 14 more days. per ID
new onset atrial fib
-EKG with atrial fib
-ECHO 12/08 with EF 60 to 65%, aortic sclerosis without stenosis
-Patient has been resumed back on Eliquis
-Lopressor
-cardiology following
Hyponatremia
monitor
4.renal insufficency; on presumed CKDIIIA
-Unknown if has underlying CKD
-Continue to monitor
Hypercalcemia
Now improving
Essential hypertension
obesity
#DVT prophylaxis- eliquis
#CODE status -full code
General: No Apparent Distress and Comfortable
HEENT: Negative Oxygen
Respiratory: Clear to Auscultation
Cardiac: Regular Rhythm and S1/S2; Negative Murmur
GI: Soft, Nontender, Nondistended and Other (Lower lef quadrant GRAHAM drain - serous drainage)
Musculoskeletal: No Edema
Neuro: Awake, Alert, Oriented and No Motor Deficits
Anticipated Discharge: Today
Subjective/Interval History
-
Date of Service: December 14, 2023
denies pain
Objective Data
-
Labs:
Laboratory Results
12/14/23
04:47
WBC 9.8
Hgb 11.4 L
Hct 32.5 L
Plt Count 381
Vital Signs:
Vital Signs
Temp Pulse Resp BP Pulse Ox
99.2 F 106 20 158/85 95
12/14/23 10:53 12/14/23 10:53 12/14/23 10:53 12/14/23 10:53 12/14/23 10:53
I&O
12/13/23 12/14/23 12/15/23
06:59 06:59 06:59
Intake Total 1525 / 1525 925 / 925
Output Total
Balance 1517 / 1517 918 / 918
--- NOTE | 2023-12-14 15:12 | W.DCSUMMARY ---
Discharge Summary
Discharge Data
Date of Admission: 12/08/23
Date of Discharge: 12/14/23
-
Pending Results: Yes
Hospital Course
78-year-old female with past medical history of essential hypertension came to the hospital with left lower quadrant pain. CT scan initially was suspected either to go ovarian abscess versus diverticular abscess. Colorectal surgery initially was
consulted who thought patient symptoms are likely from tubo-ovarian abscess and unlikely diverticular in nature. Patient was also seen by gynecology. Patient had drain placed by interventional radiology. Culture from the drain grew
Citrobacter/Klebsiella/virridans strep. Patient was then seen by infectious disease who initially had patient on IV antibiotic which were later transitioned to oral upon discharge. On pelvic ultrasound patient had some thickening in the
endometrium so gynecology took patient for the D&C however it was unsuccessful due to cervical stenosis. Patient then underwent endometrial sampling for which results were still pending prior to discharge. Patient instructed to follow-up with
gynecology for results. Repeat CT scan was done on 12/13/2023 where it appeared that abscess was improving so interventional radiology remove the drain prior to the discharge. On this hospitalization patient also had new onset of atrial
fibrillation for which initially she was on IV heparin which was later transitioned to p.o. Eliquis. Once patient symptoms continue to improve, she was then discharged home with instructions to follow-up with all her physicians outpatient.
Discharge Plan
-
Patient Disposition: Home (Routine Discharge)
Discharge Diagnosis/Procedures: Left lower quadrant pain likely secondary pelvic abscess
Thickened endometrium
New onset atrial fibrillation
Diet: As tolerated
Activity: As tolerated
Driving Restrictions: As prior to admission
Bathing Restrictions: None
Referrals:
Joey Blas MD [Active] -
Lima Guaman MD [Active] -
Prince Maldonado MD [Family Provider] - in less than 1 week
Maricruz Landa MD [Active] -
Prescriptions:
New
Eliquis 5 mg Tablet
5 mg PO BID Qty: 60 0RF
metoprolol tartrate 25 mg Tablet
12.5 mg PO BID Qty: 60 0RF
Lactobac/Bifidobac [Visbiome]
1 cap PO DAILY Qty: 14 0RF
amoxicillin-pot clavulanate 875-125 mg tablet
1 tab PO BID Qty: 28 0RF
Continued
acetaminophen [Tylenol] 325 mg Tablet
650 mg PO Q4HPRN PRN (Reason: MILD PAIN)
enalapril maleate 20 mg Tablet
40 mg PO DAILY
loperamide 2 mg Tablet
2 mg PO BIDPRN PRN (Reason: diarrhea )
timolol maleate 0.5 % Gel Forming Solution
1 drp BOTH EYES HS
cholecalciferol (vitamin D3) [Vitamin D3] 50 mcg (2,000 unit) Tablet
50 mcg PO DAILY
Lumigan 0.01 % Drops
1 drp BOTH EYES QPM
Held
amlodipine [Norvasc] 2.5 mg Tablet
2.5 mg PO DAILY
Hold Instructions: Restart when blood pressure greater than 140/90
hydrochlorothiazide 25 mg Tablet
25 mg PO DAILY
Hold Instructions: Restart when blood pressure greater than 140/90
Discontinued
metoprolol tartrate 25 mg Tablet
25 mg PO DAILY
Discharge Orders:
Discharge Patient (As Directed); Ordered 12/14/23
Ordered By: Juliano Bryan
Discharge Date and Time
Discharge Date/Time: 12/14/23 16:52
Print Language: ISRAELI
[2023-12-14 15:38] VITALS: BP 176/97
--- NOTE | 2023-12-14 15:57 | CM ---
Regla is ready for d/c to home today.
PLAN: D/C to home with no services needed.
--- NOTE | 2023-12-14 16:59 | W.PN.OBG.DWH ---
Today's Communication / Plan
-
d/c today
Oral antibiotics
f/u with [facility] outpatient
Assessment/Plan
-
78yo with suspected TOA
1.TOA-
-CT scan showing interval improvement in the collection with minimal output noted from the drain
- IR drain removed today
-leukocytosis resolved
-Citrobacter, Klebsiella and S. viridans grew from the abscess. Per ID patient to complete 2 week course of Augmentin
-pathology from endometrial biopsy pending
-f/u with [facility] within 1-2 weeks
Subjective Data
-
patient feels well. recently got her drain removed by IR team and is happy. Ready to go home. No f/c/n/v. +ambulation
Objective Data
-
Laboratory Results
12/14/23 04:47
12/13/23 06:13
Vital Signs
Temp Pulse Resp BP Pulse Ox
97.4 F 94 18 176/97 97
12/14/23 15:38 12/14/23 15:38 12/14/23 15:38 12/14/23 15:38 12/14/23 15:38
Gen: nad [email or web address]
Abd: soft, nt, nd , dry bandage over the drain removal site. no shadowing
== END 2023-12-14 16:52 | disposition home or self-care (01) | DRG 854 ==
LOC: 4 EAST ACU 16:32
PROVIDERS: Emergency Medicine; Hospitalist; Obstetrics & Gynecology; Radiology Diagnostic Radiology; Radiology Vascular & Interventional Radiology; Registered Nurse; ADMITTING PHYSICIAN Internal Medicine; CONSULT PHYSICIAN Internal Medicine; CONSULT PHYSICIAN Internal Medicine Infectious Disease; CONSULT PHYSICIAN Obstetrics & Gynecology; CONSULT PHYSICIAN Surgery; EMERGENCY PHYSICIAN Emergency Medicine; FAMILY PHYSICIAN Internal Medicine
PROC: 0W9J30Z Drainage of Pelvic Cavity with Drainage Device, Percutaneous Approach (ICD-10-PCS; 2023-12-09)
PROC: 0UBC7ZX Excision of Cervix, Via Natural or Artificial Opening, Diagnostic (ICD-10-PCS; 2023-12-11)
PROC: 0WPGX3Z Removal of Infusion Device from Peritoneal Cavity, External Approach (ICD-10-PCS; 2023-12-14)
DX: A41.9 Sepsis, unspecified organism (principal); E87.1 Hypo-osmolality and hyponatremia; N17.9 Acute kidney failure, unspecified; I12.9 Hypertensive chronic kidney disease with stage 1 through stage 4 chronic kidney disease, or unspecified chronic kidney disease; N18.31 Chronic kidney disease, stage 3a; E66.9 Obesity, unspecified; I95.9 Hypotension, unspecified; N70.93 Salpingitis and oophoritis, unspecified; N85.8 Other specified noninflammatory disorders of uterus; B95.4 Other streptococcus as the cause of diseases classified elsewhere; B96.1 Klebsiella pneumoniae [K. pneumoniae] as the cause of diseases classified elsewhere; B96.89 Other specified bacterial agents as the cause of diseases classified elsewhere; I48.91 Unspecified atrial fibrillation; E83.52 Hypercalcemia; K58.9 Irritable bowel syndrome, unspecified; K21.9 Gastro-esophageal reflux disease without esophagitis; R32 Unspecified urinary incontinence; K57.30 Diverticulosis of large intestine without perforation or abscess without bleeding; Z79.899 Other long term (current) drug therapy; Z87.891 Personal history of nicotine dependence; Z86.010 Personal history of colon polyps; Z90.49 Acquired absence of other specified parts of digestive tract; Z88.8 Allergy status to other drugs, medicaments and biological substances
CPT/HCPCS: 88305; 49406; 49424; 74177; 76080; 76830; 80048; 80053; 80202; 81003; 83690; 83930; 83935; 84295; 84300; 84443; 85025; 85027; 85610; 85730; 87040; 87070; 87075; 87077; 87186; 87205; 88112; 93005; 93306; 96361; 96374; 99152; 99153; 99285; Q9967

== ENCOUNTER 2023-12-17 23:11 | Inpatient (IN) | payer MEDICARE, SELFPAY ==
[2023-12-17 20:03] VITALS: BP 187/79
[2023-12-17 20:41] LABS: % Basophils 0.9 % (0-2); % Eosinophils 1.6 % (0-6); % Immature Granulocytes 0.9 % (0-0.5); % Lymphocytes 16.3 % (20.5-51.1); % Monocytes 9.9 % (1.7-9.3); % Neutrophils 70.4 % (42.2-75.2); Absolute Basophils 0.1 10^3/uL (0-0.2); Absolute Eosinophils 0.2 10^3/uL (0-0.7); Absolute Immature Granulocytes 0.1 10^3/uL (0-0.05); Absolute Lymphocytes 1.8 10^3/uL (1.2-3.4); Absolute Monocytes 1.1 10^3/uL (0.1-0.6); Absolute Neutrophils 7.9 10^3/uL (1.4-6.5); Hematocrit 33.5 % (37.0-47.0); Hemoglobin 11.8 g/dL (12.0-16.0); Mean Corp Hgb Conc. 35.2 g/dL (33.0-37.0); Mean Corpuscular Hgb 30.4 pg (27.0-31.0); Mean Corpuscular Volume 86.3 fL (81.0-99.0); Mean Platelet Volume 10.5 fL (7.4-10.4); Nucleated Red Blood Cells % 0 %; Platelet Count 383 10^3/uL (130-400); Red Blood Cell Count 3.88 10^6/uL (4.20-5.40); Red Cell Dist. Width 14.4 % (11.5-14.5); White Blood Cell Count 11.3 10^3/uL (4.8-10.8)
[2023-12-17 20:44] VITALS: BP 179/89
[2023-12-17 20:48] VITALS: BMI 29.7
[2023-12-17 21:00] VITALS: BP 174/73
[2023-12-17 21:01] LABS: NT-proBNP 6260 pg/ml
[2023-12-17 21:14] LABS: ALT (SGPT) 16 U/L (0-35); AST (SGOT) 32 U/L (14-36); Albumin 3.4 g/dl (3.5-5.0); Alkaline Phosphatase 57 U/L (38-126); Blood Urea Nitrogen 10 mg/dl (7-17); Calcium 9.5 mg/dl (8.4-10.2); Carbon Dioxide 27 mmol/L (22-30); Chloride 93 mmol/L (98-107); Estimated Creatinine Clearance 49 ml/min; Glucose 100 mg/dl (70-99); Potassium 3.3 mmol/L (3.5-5.1); Sodium 129 mmol/L (135-145); Total Bilirubin 0.7 mg/dl (0.2-1.3); Total Protein 5.7 g/dl (6.3-8.2); eGFR > 60.00
--- NOTE | 2023-12-17 21:14 | ED.GENMED ---
History of Present Illness
General
Chief Complaint: Swelling
Source: patient, records and family
Time Seen by Provider: 12/17/23 20:52
History of Present Illness
History of Present Illness:
This patient is a very pleasant 78-year-old female presents emergency department after being discharged from the hospital just a few days ago after treatment for a pelvic abscess. She continues on oral antibiotics. On Thursday she did have an
episode of diarrhea and vomiting which she suspects is related to her medications, and that has fully resolved. She is eating and drinking as usual as of yesterday and today. However, she notes orthopnea ever since Thursday. She is now using up to
4 pillows to prop her self off in order to sleep properly. She denies dyspnea on exertion, dyspnea at rest, dyspnea currently. She denies any chest pain or pressure, fever, chills, abdominal pain, back pain. As of yesterday, she was noted to have
lower extremity edema which is increasing today. Of note, she started her hydrochlorothiazide back up again, 25 mg, today as well as her metoprolol. It had previously been held due to blood pressure concerns. Patient has also gained approximately
5 to 7 pounds in the last 3 days. Patient was noted to be in new onset A-fib during her hospitalization and had an echo, see report below, and started on a DOAC. She does not have a prior cardiac history as per family.
Past History
Past History
ED Past Medical History: Other (A-fib, hypertension, pelvic abscess status post drainage November 2023)
Social History
Tobacco: Non-smoker
Alcohol: None
Drug: None
Living: with family
Phy Exam
Physical Exam
Physical Exam:
GENERAL: Alert , in no apparent distress, nontoxic
EYE: pupils equal and reactive
NECK: Supple, no significant adenopathy.
ENT: o/p clr, mmm.
CARDIAC: Regular rate and rhythm with occasional irregular beat.
LUNGS: Clear breath sounds bilaterally, no acute respiratory distress, no wheezes/rales/rhonchi
ABDOMEN: Soft, without focal tenderness, no r/g, no cvat
NEUROLOGICAL: Alert and oriented, no focal neuro deficits
SKIN: Warm and dry, skin intact.
MUSCULOSKELETAL: 2+ bilateral lower extremity edema to the level of proximal feet, well perfused.
PSYCH: Normal and appropriate interaction.
Scores
Heart Failure Risk
Heart Failure Risk Score: Not Applicable
Course
Orders/Labs/Results
Orders:
Orders
12/17/23 20:09
Electrocardiogram (*1) Urgent
Reason for Study: Other
Other Reason for Exam: swelling
12/17/23 20:10
EKG- Treatment ONCE
12/17/23 20:28
Complete Blood Count/With Diff Urgent
Comprehensive Metabolic Panel Urgent
NT-proBNP Urgent
12/17/23 21:14
CR Chest - 2 Views Urgent
Comment:
Reason For Exam: sob
12/17/23 21:22
Aspirin 325 mg PO NOW STA
Furosemide [Lasix] 40 mg IV NOW STA
12/17/23 21:23
Potassium Chloride [KCl] 40 meq PO NOW STA
12/17/23 21:31
Potassium Chloride 10% Elixir [KCl Elixir] 40 meq PO NOW STA
12/17/23 21:58
Troponin I Urgent
12/17/23 23:00
Flush (0.9% Sodium Chloride) [Flush (Nss)] See Dose Instructions IV PER PROTOCOL
Loperamide [Imodium] 2 mg PO BIDPRN PRN
12/17/23 23:02
Admit/Transfer Patient As Directed
Co-Sign Provider:
Level of Care: Inpatient admission
Assign to:: Telemetry
Physician / Group: Hospitalist
Diagnosis: New onset CHF
Reason for Telemetry: Subacute Heart Failure
Date to Stop Telemetry: 12/19/23
Time to Stop Telemetry: 11:00
Reason for Hospitalization: Acute CHF
Expected length of stay greater than two midnights?: Yes
ELOS- Estimated Length of Stay in days: 2
I certify the patient meets the requirements for IP care: Yes
PRN Pain Medication Management As Directed
May give lesser potent ordered pain med per pt: Yes
preference::
Protocol:: Medication orders for pain may be administered in a
manner that supports deferring to patient preference
when the pt is:
- Requesting an ordered lesser potent pain medication.
Least to most potent pain medications are defined
as: acetaminophen < NSAID < tramadol < opioids
(morphine, oxycodone, hydromorphone).
- Requesting a lesser dose of the same medication IF
ORDERED.
- Requesting a less intrusive route of administration
if both routes are prescribed by the provider (PO <
IV).
12/17/23 23:03
Code Status As Directed
Resuscitation Status: Full Code
12/17/23 23:06
Potassium Chloride Powder [Klor-Con] 20 meq PO ONCE ONE
12/18/23 00:50
CARDIOLOGY CONSULT Routine
Consulting Provider: Rusty Boss
Was physician already notified: No
Reason for consult: new onset chf
Consult Notification Routine
Specialty to Notify: Cardiology
HF DIETARY CONSULT Routine
HF EDUCATOR CONSULT Routine
Comment:
VTE Contraindication Routine
VTE Mechanical Device Contraindication: Medical Contraindication
Pharmocologic Contraindication: Medical Contraindication
Activity As Directed
Activity Level: With Assistance
Intake/ Output As Directed
Frequency: Per unit guidelines
Patient Education As Directed
Type: CHF folder
Comment: give on admission. Document in Interdisciplinary Education record
Sleep Apnea Assessment by RN As Directed
Comment:
Physician Instructions:
Vital Signs As Directed
Frequency: Other
Additional Instructions:: Q12 or per unit guidelines if more frequent.
Weight As Directed
Frequency: Daily
Type of Scale: Standing Scale
Comment: Daily morning weight. If unable to stand, use balanced bed scale.
Weight As Directed
Frequency: Once
Type of Scale: Standing Scale
Comment: Upon Admission. If unable to stand, use balanced bed scale.
Pulse Ox/cont/shift [RESP] Routine
Quantity: 1
Special Instructions: Daily pulse oximetry at rest. If greater than 92% at rest also obtain pulse oximetry
while ambulating as tolerated.
12/18/23 06:00
Echo 2D MMode Color/Doppler IN AM
Reason for Study: heart failure
Basic Metabolic Panel IN AM
Complete Blood Count/No Diff IN AM
Magnesium IN AM
TSH Reflex To Free T4 IN AM
12/18/23 08:00
Amoxicillin 875 mg/Clav 125 mg [Augmentin 875 mg/125 mg] 1 tablet PO BID
Apixaban [Eliquis] 5 mg PO BID
Cholecalciferol (Vitamin D3) [VITAMIN D3 (cholecalciferol)] 50 mcg PO DAILY
Enalapril [Vasotec] 40 mg PO DAILY
Furosemide [Lasix] 20 mg IV BID AT 0800,1600
Metoprolol [Lopressor] 12.5 mg PO BID
12/18/23 Dinner
Cholesterol Lowering
Fluid Restriction: 1920 mL/day (64 oz)
Cholesterol Lowering: Sodium, 2 Gram
12/18/23 18:00
Latanoprost [Xalatan Ophthalmic Solution] 1 drop BOTH EYES QPM
12/18/23 22:00
Timolol Maleate 0.5% [Timoptic 0.5% Ophthalmic Solution] 1 drop BOTH EYES BID
12/19/23 06:00
Basic Metabolic Panel IN AM
12/19/23 11:00
DC Protocol for Telemetry ONCE
12/20/23 06:00
Basic Metabolic Panel IN AM
Abnormal Lab Results
12/17/23
20:28
WBC 11.3 H 10^3/uL
(4.8-10.8)
RBC 3.88 L 10^6/uL
(4.20-5.40)
Hgb 11.8 L g/dL
(12.0-16.0)
Hct 33.5 L %
(37.0-47.0)
MPV 10.5 H fL
(7.4-10.4)
Abs Immat Gran (auto) 0.1 H 10^3/uL
(0-0.05)
Absolute Neuts (auto) 7.9 H 10^3/uL
(1.4-6.5)
Absolute Monos (auto) 1.1 H 10^3/uL
(0.1-0.6)
Immature Gran % 0.9 H %
(0-0.5)
Lymphocytes % 16.3 L %
(20.5-51.1)
Monocytes % 9.9 H %
(1.7-9.3)
Sodium 129 L mmol/L
(135-145)
Potassium 3.3 L mmol/L
(3.5-5.1)
Chloride 93 L mmol/L
(98-107)
Glucose 100 H mg/dl
(70-99)
Total Protein 5.7 L g/dl
(6.3-8.2)
Albumin 3.4 L g/dl
(3.5-5.0)
12/17/23 20:28
12/17/23 20:28
Vital Signs
Initial and Last Documented VS:
Initial Vital Signs
Temp Pulse Resp BP Pulse Ox
98.4 F 64 18 187/79 98
12/17/23 20:03 12/17/23 20:03 12/17/23 20:03 12/17/23 20:03 12/17/23 20:03
Last Documented Vital Signs
Temp Pulse Resp BP Pulse Ox
98.5 F 61 20 168/70 100
12/18/23 01:10 12/18/23 01:10 12/18/23 01:10 12/18/23 01:10 12/18/23 01:10
*Critical Care Note
Total Time (30-74mins, 75-104mins- exclusive of procedures): Not Applicable
Update Note
Update Note:
Patient presents to the Emergency Department with __lower extremity edema and orthopnea
Number and Complexity of Problems Addressed at the Encounter
� Chronic conditions affecting care:
� Acute Exacerbation and/or Progression of Chronic Illness: A-fib
� Differential Diagnosis includes: But not limited to medication reaction, pulmonary edema/heart failure, ACS, renal failure, etc.
Amount and/or Complexity of Data to be Reviewed and Analyzed
� I performed an independent evaluation of and my interpretation is:
EKG: Read by me, normal sinus rhythm, left axis deviation, normal rate, no acute ischemia
CT:
Xrays: cxr suspect pulm edema
Laboratory Studies: BNP noted to be markedly elevated consistent with suspected heart failure. Slight nonspecific leukocytosis.
Other:
� Review of other/old records reveals: Patient's most recent echo notes 'Normal left ventricular size with mild concentric remodeling and normal
systolic function. No regional wall motion abnormalities are seen. LV ejection
fraction is 60-65% by Genao's method of discs. Normal diastolic function.
� Clinical information was obtained by an independent historian: Family who are at bedside
� Prescriptions/Medications Considered but not given:
� Further testing considered but not performed:
Risk of Complications and/or Morbidity or Mortality of Patient Management
� Social determinants of health affecting care: Strong social support with very supportive family who are helping to care for her
� Discussion with other providers (PCP, Hospitalists, Consultants, etc):
� Escalation of care including admission/observation vs risk of discharge considered: Suspect heart failure as a cause of the patient's symptoms. She is noted to have a weight gain upon our records here, her weight on December 07 was
67.5 kg and today she is measured at 76 kg. This is consistent with the weight gain that she described in her history. In addition to orthopnea and lower extremity edema, elevated BNP, etc. Troponin chest x-ray pending. Will administer aspirin
and Lasix now, likely admission. Patient is stable, pulse ox within normal limits. TT sent to Dr Rolon for admission, family updated.
ED Attending Note
-
Portions of this chart may have been created with voice recognition software.� Occasional wrong word or��sound alike� substitutions may have occurred due to the inherent limitations of voice recognition software.
Discharge Plan
Departure
Patient Disposition: Admit
Date of Disposition: 12/17/23
Time of Disposition: 22:08
Admit to: Telemetry
Admit to doctor: davis
Presentation/result/management discussed w/ accepting MD/DO: Hospitalist
Condition: Fair
Discharge Problem:
Heart failure
Interventions
Interventions:
*Risk Screen - Suicide Last Done: 12/17/23 20:03
*General Assessment Last Done: 12/17/23 20:03
*Neglect/Abuse Screening Last Done: 12/17/23 20:03
ED- Fall Risk Assessment Last Done: 12/17/23 20:48
*ED COVID-19 Vaccine History Last Done: 12/17/23 20:48
*Nursing Disposition Last Done: 12/18/23 00:32
ED- Cardiac Assessment Last Done: 12/17/23 20:48
ED- Pulmonary Assessment Last Done: 12/17/23 20:48
ED-Skin Assessment Last Done: 12/17/23 20:48
Discharge Date and Time
Discharge Date/Time: 12/18/23 00:36
[2023-12-17] MEDS: ASPIRIN 325 MG PO (21:45)
[2023-12-17] MEDS: KCL ELIXIR 40 MEQ PO (21:45)
[2023-12-17] MEDS: LASIX 40 MG IV (21:55)
[2023-12-17 22:02] VITALS: BP 167/72
[2023-12-17 22:47] LABS: Troponin I 0.019 ng/ml
--- NOTE | 2023-12-17 22:49 | HPS.HSE ---
Family Physician
-
Family Physician: NOT KNOW UNKNOWN - PT DOES
Chief Complaint
-
Orthopnea and lower extremity edema.
History of Present Illness
This is an 78-year-old female with past medical history significant for hypertension who was recently diagnosed with atrial fibrillation in the setting of admission last week for a suspected diverticular abscess now comes in with orthopnea
and leg swelling.
Patient with his symptoms started about 3 days ago. She started having 4 pillow orthopnea. She has no prior orthopnea prior. She denies any palpitations lightheadedness or dizziness. She denies any chest pain. She also reported that she had
increasing lower extremity edema and approximately 5 pound weight gain in about 2 days. She reports that she has been compliant with her rate control medication as well as her anticoagulation. She denies having any cough, fevers or chills. She
denies any nausea or vomiting. She denies any diaphoresis. Patient denies any prior history of CHF. She denies any intercurrent respiratory illness or infection.
During hospitalization she had endometrial sampling for which results were still pending prior to discharge. Patient instructed to follow-up with gynecology for results. Repeat CT scan was done on 12/13/2023 where it appeared that abscess was
improving so interventional radiology remove the drain prior to the discharge.
On arrival in the emergency department the patient was hemodynamically stable with a blood pressure of 167/72, pulse of 62, oxygen saturation was 95% on room air. She was afebrile. ECG shows a normal sinus rhythm at a rate of 61 with left axis
deviation but no acute ischemic changes. Chest x-ray shows bilateral blunting of the costophrenic angles consistent with mild bilateral pleural effusion. Trop 0.019. BNP was elevated at over 6000. Chemistries notable for normal BUN/creatinine
but sodium of 129 and a potassium of 3.3. CBC was unremarkable.
Medical History
Past Medical History
Past Medical History: Reports Arrhythmia and HTN
Past Surgical History: Reports Gynocological
Social History
Tobacco: Former Smoker
Alcohol: None
Drug: None
Personal: Single
Living: With Family
Employment: Retired
Family History
Family History: Not pertinent
Allergies / Home Medications
Allergies reflects when Allergies were last updated in [employer].
Home Medications with original date entered in [employer]
Allergy/Medication List:
Allergies
Allergy/AdvReac Type Severity Reaction Status Date / Time
amlodipine Allergy Unknown Unknown Verified 12/17/23 22:20
lisinopril Allergy abdominal Verified 12/17/23 20:41
cramping
unknown drug Allergy Unknown Uncoded 12/17/23 20:41
Home Medications
acetaminophen 325 mg tablet (Tylenol) 650 mg PO Q4HPRN PRN MILD PAIN 12/08/23
bimatoprost 0.01 % eye drops (Lumigan) 1 drp BOTH EYES QPM eye condition 12/08/23
cholecalciferol (vitamin D3) 50 mcg (2,000 unit) tablet (Vitamin D3) 50 mcg PO DAILY supplement 12/08/23
enalapril maleate 20 mg tablet 40 mg PO DAILY blood pressure 12/08/23
hydrochlorothiazide 25 mg tablet 25 mg PO DAILY blood pressure 12/08/23
loperamide 2 mg tablet 2 mg PO BIDPRN PRN diarrhea 12/08/23
timolol maleate 0.5 % eye gel forming solution 1 drp BOTH EYES HS eye condition 12/08/23
amoxicillin 875 mg-potassium clavulanate 125 mg tablet 1 tab PO BID #28 tabs 12/14/23
apixaban 5 mg tablet (Eliquis) 5 mg PO BID #60 tabs 12/14/23
Lactobacillus rhamnosus GG 10 billion cell capsule (Culturelle) 1 cap PO DAILY 12/17/23
metoprolol tartrate 25 mg tablet 25 mg PO BID 12/17/23
Review of Systems
-
History Source: Patient
Constitutional: Reports No Symptoms
EENT: Reports No Symptoms
Respiratory: Reports Trouble Breathing
Cardiac: Reports Other (Orthopnea, bilateral leg edema)
Abdomen/GI: Reports No Symptoms
: Reports No Symptoms
Musculoskeletal: Reports No Symptoms
Skin: Reports No Symptoms
Neurological: Reports No Symptoms
Endocrine: Reports No Symptoms
Hematologic/Lymphatic: Reports No Symptoms
Psych: Reports No Symptoms
Physical Exam
Vital Signs
Vital Signs
Temp Pulse Resp BP Pulse Ox
98.4 F 58 15 167/72 95
12/17/23 20:03 12/17/23 22:45 12/17/23 22:45 12/17/23 22:02 12/17/23 21:07
Physical Exam
General: Well Developed, Well Nourished and Comfortable
HEENT: NormoCephalic, Moist mucous membranes, Atraumatic and PERRLA
Respiratory: Decreased Breath Sounds
Cardiac: S1/S2 and Regular Rhythm
Breast: Deferred by me
GI: Soft, Non Tender, Non Distended and Normal Bowel Sounds
Rectal: Other
Genito-urinary: Clear Urine
Musculoskeletal: No Clubbing, No Cyanosis, Edema, Left Lower Extremity and Edema, Right Lower Extremity
Skin: Warm and Dry
Neuro: AO x 3
Hematologic/Lymphatic: No Lymphadenopathy
Psych: Calm
Laboratory Results
-
12/17/23 20:28
12/17/23 20:28
Laboratory Results
Total Bilirubin 0.7 mg/dl (0.2-1.3) 12/17/23 20:28
AST 32 U/L (14-36) 12/17/23 20:28
ALT 16 U/L (0-35) 12/17/23 20:28
Alkaline Phosphatase 57 U/L (38-126) 12/17/23 20:28
Troponin I 0.019 ng/ml 12/17/23 21:58
Data Reviewed
-
Diagnostic Radiology: Image Personally Visualized and interpreted
Medical Tests (Nuc Med, Echo, EKG etc): Image Personally Visualized and interpreted
Lab Data: Labs Reviewed by me
Impression/Plan
-
IMPRESSION:
PLAN:
1. CHF - Patient with new onset CHF of uncertain etiology. Has pulmonary edema, travis pl effusion, travis lower extremity edema and elevated BNP. ECG is non-ischemic. ECHO from 1 week ago shows No regional wall motion abnormalities are seen. LV
ejection fraction is 60-65% and no valvular abnormalities. No rubs or murmurs on exam. Can't rule out stress induced or pericardial etiology but less likely.
- admit to telemetry
- lasix 20mg iv bid for now, d/c hctz
- keep K, Mag > 4,2
- repeat echo given change in condition
- check tsh
- continue metoprolol and elanapril
- consider additional GDMT such as jardiance
- cardiology consultation.
2. ID - possible diverticular abscess. White count is ok. No signs of active infection.
- continue amoxicillin.
3. AFIB - Currently rate controlled and in sinus rhythm.
- continue metoprolol 12.5 q 12
- apixaban 5 q 12
DVT PPX - on apixaban
Code status - Full Code
[2023-12-17 23:00] VITALS: BP 162/70
[2023-12-18] VITALS (7 sets, daily range): BP systolic 154–174; BP diastolic 59–83; BMI 28.5
[2023-12-18] MEDS: KLOR-CON 20 MEQ PO (02:26)
[2023-12-18 05:51] LABS: Hematocrit 32.5 % (37.0-47.0); Hemoglobin 11.6 g/dL (12.0-16.0); Mean Corp Hgb Conc. 35.7 g/dL (33.0-37.0); Mean Corpuscular Hgb 31.4 pg (27.0-31.0); Mean Corpuscular Volume 87.8 fL (81.0-99.0); Mean Platelet Volume 11.3 fL (7.4-10.4); Platelet Count 341 10^3/uL (130-400); Red Cell Dist. Width 14.2 % (11.5-14.5)
[2023-12-18 06:43] LABS: Blood Urea Nitrogen 9 mg/dl (7-17); Calcium 9.1 mg/dl (8.4-10.2); Carbon Dioxide 29 mmol/L (22-30); Chloride 95 mmol/L (98-107); Estimated Creatinine Clearance 48 ml/min; Glucose 89 mg/dl (70-99); Magnesium 1.4 mg/dl (1.6-2.3); Potassium 3.5 mmol/L (3.5-5.1); Sodium 133 mmol/L (135-145); eGFR > 60.00
[2023-12-18 07:04] LABS: TSH Reflex To Free T4 4.66 uIU/ml (0.47-4.68)
--- NOTE | 2023-12-18 08:46 | CON.CAR ---
Addendum entered and electronically signed by Kuldip Winkler MD 12/18/23 11:47:
78 yo female with paroxysmal A fib on eliquis, recent admission for left tubo-ovarian abscess s/p percutaneous drainage is admitted with volume overload and SOB/orthopnea. Exam with RRR, no murmurs, 1+ LE edema. Cr 0.9. Tele: NSR.
Acute HFPEF vs iatrogenic volume overload. Continue IV lasix with close monitoring of labs and tele.
Hypokalemia: will add aldactone.
Echo 12/08: EF 60-65%, no sig valve disease
Original Note:
Consultation
Consultation Request
Date/Time Consultation Requested: 12/18/2023 00:50
Date/Time Consultation Performed: 12/18/2023 08:45
Requesting Provider: Dr. Jimenes
Performing Provider: JENNIFER Dupree for Dr. Winkler
Reason for Consultation: Acute HF
Medical History
-
Chief Complaint: Orthopnea
History of Present Illness:
Regla Huggins is an 78 year old female with HTN, GERD, IBS and recent admission with left tubo-ovarian abscess (still completing Augmentin) presented to the ER with a chief complaint of orthopnea. She endorsed associated lower extremity swelling.
This started gradually the day after she returned home. During her last hospitalization she had atrial fibrillation with RVR. She was started on apixaban and low dose beta matt. She spontaneously converted to sinus rhythm. Her orthopnea and
swelling is improving with diuresis.
Past Medical History
Past Medical History: Arrhythmias (paroxysmal atrial fibrillation [on apixaban]), GERD, HTN and Other (IBS)
Social History
Tobacco: Former Smoker
Alcohol: None
Drug: None
Living: With Family
Employment: Retired
Family History
Family History: Reviewed & Not Pertinent
Allergies / Home Medications
Allergy/AdvReac Type Severity Reaction Status Date / Time
amlodipine Allergy Unknown Unknown Verified 12/17/23 22:20
lisinopril Allergy abdominal Verified 12/17/23 20:41
cramping
unknown drug Allergy Unknown Uncoded 12/17/23 20:41
�Medication �Instructions �Recorded �Confirmed �Type
acetaminophen 325 mg tablet 650 mg PO Q4HPRN PRN MILD PAIN 12/08/23 12/18/23 History
(Tylenol)
bimatoprost 0.01 % eye drops 1 drp BOTH EYES QPM eye condition 12/08/23 12/18/23 History
(Lumigan)
cholecalciferol (vitamin D3) 50 50 mcg PO DAILY supplement 12/08/23 12/18/23 History
mcg (2,000 unit) tablet (Vitamin
D3)
enalapril maleate 20 mg tablet 40 mg PO DAILY blood pressure 12/08/23 12/18/23 History
hydrochlorothiazide 25 mg tablet 25 mg PO DAILY blood pressure 12/08/23 12/18/23 History
loperamide 2 mg tablet 2 mg PO BIDPRN PRN diarrhea 12/08/23 12/18/23 History
timolol maleate 0.5 % eye gel 1 drp BOTH EYES HS eye condition 12/08/23 12/18/23 History
forming solution
amoxicillin 875 mg-potassium 1 tab PO BID #28 tabs 12/14/23 12/18/23 Rx
clavulanate 125 mg tablet
apixaban 5 mg tablet (Eliquis) 5 mg PO BID #60 tabs 12/14/23 12/18/23 Rx
Lactobacillus rhamnosus GG 10 1 cap PO DAILY 12/17/23 12/18/23 History
billion cell capsule (Culturelle)
metoprolol tartrate 25 mg tablet 12.5 mg PO BID 12/17/23 12/18/23 History
Review of Systems
-
History Source: Patient
All other systems: Negative unless noted
Constitutional: Fatigue
EENT: No Symptoms
Respiratory: Trouble Breathing
Cardiac: No Symptoms
Abdomen/GI: No Symptoms
: No Symptoms
Musculoskeletal: Edema
Skin: No Symptoms
Neurological: No Symptoms
Endocrine: No Symptoms
Hematologic/Lymphatic: No Symptoms
Physical Exam
Vital Signs
Temp Pulse Resp BP Pulse Ox
98.2 F 64 18 167/73 99
12/18/23 08:17 12/18/23 08:17 12/18/23 08:17 12/18/23 08:17 12/18/23 08:17
Lab Results
12/18/23 04:45
12/18/23 04:45
Troponin I 0.019 ng/ml 12/17/23 21:58
Bup-I-Trjruvcrxga Pept 6260 pg/ml 12/17/23 20:28
Physical Exam
General: Well Developed, Well Nourished and No Apparent Distress
HEENT: Normocephalic, Anicteric and Moist Mucous Membranes
Respiratory: Clear and Non Labored Respirations
Cardiac: S1/S2, Regular Rhythm and Peripheral Edema
Breast: Deferred by me
GI: Soft, Non Tender, Non Distended and Normal Bowel Sounds
Rectal: Deferred by Provider
Genito-urinary: No Costovertebral Tender
Musculoskeletal: No Clubbing and No Cyanosis
Skin: Warm and Dry
Neuro: AO x 3
Hematologic/Lymphatic: No Lymphadenopathy
Psych: Calm
Impression / Plan
-
BACKGROUND: 78F HTN, GERD, IBS and recent admission with left tubo-ovarian abscess (still completing Augmentin) presented to the ER with a chief complaint of orthopnea.
Drafting Layout Worker: Dr. Blas
HFpEF, acute - NEW
-Volume overload with elevated proBNP, congestion on CXR and orthopnea
-Diuresis with furosemide 20mg IV BID, this requires intensive monitoring
-She would benefit from compression, this was ordered
-Start spironolactone 12.5mg daily (hypokalemia)
-Case Mgmt to [facility] SGLT2i
-Weight last admission was bed scale and she had an NATHALY, dry weight to be determined
-Heart failure education
Hyponatremia, in the setting of hypervolemia - improving
Paroxysmal atrial fibrillation
-Stable in sinus rhythm, continue metoprolol tartrate 12.5mg BID started last admission
-Oral Anticoagulation: Apixaban 5mg BID
-[id number]: score at least 5 (Heart failure, HTN, age 75 or more, female gender)
HTN
-Hypotensive last admission, now hypertensive
-Follow with diuresis
Left tubo-ovarian abscess, completed Unasyn, on Augmentin
Former smoker, continued cessation recommended
DATA:
Echocardiogram, 12/09/2023:
Normal left ventricular size with mild concentric remodeling and normal
systolic function. No regional wall motion abnormalities are seen. LV ejection
fraction is 60-65% by Genao's method of discs. Normal diastolic function.
Normal right ventricular size and function.
Normal atria.
Aortic sclerosis without stenosis.
No other significant valve abnormalities.
No evidence of pulmonary hypertension.
Data Reviewed
-
EKG: Report Reviewed by me (Sinus rhythm, left axis, rate 61)
Radiology: Report Reviewed by me (CXR: Congestive heart failure versus volume overload.)
Medical Tests (Nuc Med, Echo etc): Report Reviewed by me (Echo as above)
Labs: Labs Reviewed by me
Old Records: Reviewed
[2023-12-18] MEDS: AUGMENTIN 875 MG/125 MG 1 TABLET PO ×2 (08:58→20:23)
[2023-12-18] MEDS: MAGNESIUM SULFATE 50 IV (08:59)
[2023-12-18] MEDS: VASOTEC 40 MG PO (09:02)
[2023-12-18] MEDS: ELIQUIS 5 MG PO ×2 (09:05→20:23)
[2023-12-18] MEDS: LOPRESSOR 12.5 MG PO ×2 (09:05→20:24)
[2023-12-18] MEDS: VITAMIN D3 (cholecalciferol) 50 MCG PO (09:05)
[2023-12-18] MEDS: LASIX 20 MG IV ×2 (09:06→16:49)
--- NOTE | 2023-12-18 09:28 | CM ---
CM requested to [facility] Farxiga and Jardiance, 10mg.
Jardiance and Farxiga are both $47 for 30 days and $141 for 90 days.
Cait Mason notified via [facility] [employer].
--- NOTE | 2023-12-18 09:32 | CM ---
Addendum entered by Radha Kraft 12/18/23 16:46:
Please disregard bold note below re: O2 needs; this was an erroneous entry.
Original Note:
Regla was recently discharged from to home with no needs.
Regla lives with her long time partner in a 2 story home with 12 entry steps from the garage. She has been (I) amb and adl's prior to hospitalization and anticipates returning home with no services at discharge.
CM will watch for O2 needs at discharge.
Plan: Discharge to home with no needs; CM will follow for any changes.
PCP: Prince Maldonado
PHARM: [facility] in [place]
--- NOTE | 2023-12-18 11:06 | W.PN.HOSP.TC ---
Today's Communication/Plan
-
monitor vitals
see plan
cw lasix
aldactone added
family updated over the phone
replete magnesium
monitor volume status
Assessment / Plan
Assessment / Plan
General: Well Developed, Well Nourished and Comfortable
HEENT: NormoCephalic, Moist mucous membranes, Atraumatic and PERRLA
Respiratory: Decreased Breath Sounds
Cardiac: S1/S2 and Regular Rhythm
GI: Soft, Non Tender, Non Distended and Normal Bowel Sounds
Musculoskeletal: Edema, Left Lower Extremity and Edema, Right Lower Extremity
Neuro: AO x 3
Psych: Calm
Acute CHFPEF
cw IV lasix
cardiology following
started aldactone
I and O's
bnp and cxr noted
Recent pelvic abscess
cw augmentin; last day 12/27
follow up with SENIOR QUALITY MANAGER outpatient
par afib
-ECHO 12/08 with EF 60 to 65%, aortic sclerosis without stenosis
cw eliquis
-Lopressor
-cardiology following
Hypomagnesemia
replete
Hypokalemia
Hyponatremia
monitor
Essential hypertension
obesity
#DVT prophylaxis- eliquis
#CODE status -full code
I spent a total of 51 minutes with the patient or on the floor. More than 50% of this time involved counseling and coordination of care.
Anticipated Discharge: 24 - 48 hours
Subjective/Interval History
-
Date of Service: December 18, 2023
denies chest pain
Objective Data
-
Labs:
Laboratory Results
12/18/23
04:45
WBC 8.0
Hgb 11.6 L
Hct 32.5 L
Plt Count 341
Sodium 133 L
Potassium 3.5
Chloride 95 L
Carbon Dioxide 29
BUN 9
Creatinine 0.9
Glucose 89
Calcium 9.1
Vital Signs:
Vital Signs
Temp Pulse Resp BP Pulse Ox
98.2 F 64 18 167/73 99
12/18/23 08:17 12/18/23 09:02 12/18/23 08:17 12/18/23 09:02 12/18/23 08:17
I&O
12/17/23 12/18/23 12/19/23
06:59 06:59 06:59
Output Total 1000 / 1000
Balance -1000 / -1000
[2023-12-18] MEDS: ALDACTONE 12.5 MG PO (12:57)
[2023-12-18] MEDS: TYLENOL 650 MG PO (13:31)
[2023-12-18 15:09] LABS: Glycohemoglobin (HgbA1c) 5.2 % (4.0-5.6)
[2023-12-18] MEDS: XALATAN OPHTHALMIC SOLUTION 1 DROP BOTH EYES (16:52)
[2023-12-18] MEDS: TIMOPTIC 0.5% OPHTHALMIC SOLUTION BOTH EYES ×2 (21:38→21:41)
[2023-12-19] VITALS (10 sets, daily range): BP systolic 152–173; BP diastolic 57–82; BMI 26.6
[2023-12-19 07:54] LABS: Blood Urea Nitrogen 10 mg/dl (7-17); Calcium 9.9 mg/dl (8.4-10.2); Carbon Dioxide 33 mmol/L (22-30); Chloride 94 mmol/L (98-107); Estimated Creatinine Clearance 42 ml/min; Glucose 90 mg/dl (70-99); Magnesium 1.8 mg/dl (1.6-2.3); Potassium 3.6 mmol/L (3.5-5.1); Sodium 135 mmol/L (135-145); eGFR 56.95
[2023-12-19 08:06] LABS: % Basophils 1.3 % (0-2); % Eosinophils 1.1 % (0-6); % Immature Granulocytes 0.6 % (0-0.5); % Lymphocytes 18.9 % (20.5-51.1); % Monocytes 11.5 % (1.7-9.3); % Neutrophils 66.6 % (42.2-75.2); Absolute Basophils 0.1 10^3/uL (0-0.2); Absolute Eosinophils 0.1 10^3/uL (0-0.7); Absolute Immature Granulocytes 0.1 10^3/uL (0-0.05); Absolute Lymphocytes 1.8 10^3/uL (1.2-3.4); Absolute Monocytes 1.1 10^3/uL (0.1-0.6); Absolute Neutrophils 6.2 10^3/uL (1.4-6.5); Hematocrit 37.9 % (37.0-47.0); Hemoglobin 13.2 g/dL (12.0-16.0); Mean Corp Hgb Conc. 34.8 g/dL (33.0-37.0); Mean Corpuscular Hgb 31.1 pg (27.0-31.0); Mean Corpuscular Volume 89.4 fL (81.0-99.0); Mean Platelet Volume 10.8 fL (7.4-10.4); Nucleated Red Blood Cells % 0 %; Platelet Count 434 10^3/uL (130-400); Red Blood Cell Count 4.24 10^6/uL (4.20-5.40); Red Cell Dist. Width 14.6 % (11.5-14.5); White Blood Cell Count 9.2 10^3/uL (4.8-10.8)
[2023-12-19] MEDS: AUGMENTIN 875 MG/125 MG 1 TABLET PO ×2 (08:33→19:48)
[2023-12-19] MEDS: VASOTEC 40 MG PO (08:36)
[2023-12-19] MEDS: ELIQUIS 5 MG PO ×2 (08:37→19:48)
[2023-12-19] MEDS: ALDACTONE 12.5 MG PO ×2 (08:37→13:14)
[2023-12-19] MEDS: LASIX 20 MG IV ×2 (08:38→15:26)
[2023-12-19] MEDS: VITAMIN D3 (cholecalciferol) 50 MCG PO (08:38)
[2023-12-19] MEDS: LOPRESSOR 12.5 MG PO ×2 (08:38→19:48)
[2023-12-19] MEDS: TIMOPTIC 0.5% OPHTHALMIC SOLUTION 1 DROP BOTH EYES (08:39)
--- NOTE | 2023-12-19 12:53 | W.PN.CD ---
Addendum entered and electronically signed by Kuldip Winkler MD 12/19/23 14:41:
78 yo female with paroxysmal A fib on eliquis, recent admission for left tubo-ovarian abscess s/p percutaneous drainage is admitted with volume overload and SOB/orthopnea. Exam with RRR, no murmurs, 1+ LE edema. Cr 1.0. Tele: NSR, brief SVT.
Acute HFPEF vs iatrogenic volume overload. Continue IV lasix with close monitoring of labs and tele.
Hypokalemia: resolved with addition of aldactone. Continue
Assess for PO lasix tomorrow.
Original Note:
Today's Communication / Plan
-
increase Aldactone to 25mg po daily with con't elevated BP's despite diuresis
follow renal fucntion
Impression / Plan
-
BACKGROUND: 78F HTN, GERD, IBS and recent admission with left tubo-ovarian abscess (still completing Augmentin) presented to the ER with a chief complaint of orthopnea.
Footwear Sales Leader: Dr. Blas
Pt states feeling much better, SOB and edema have improved.
HFpEF, acute - NEW
-Volume overload with elevated proBNP, congestion on CXR and orthopnea
-Diuresis with furosemide 20mg IV BID, this requires intensive monitoring
-down approx 8kg and feeling better
-spironolactone 12.5mg daily added this admit (hypokalemia)
Hyponatremia, in the setting of hypervolemia - improving
Paroxysmal atrial fibrillation
-Stable in sinus rhythm, continue metoprolol tartrate 12.5mg BID started last admission
-Oral Anticoagulation: Apixaban 5mg BID
-[id number]: score at least 5 (Heart failure, HTN, age 75 or more, female gender)
HTN
-hypertensive this admit even with diuresis
-will increase aldactone given elevated BP's
Left tubo-ovarian abscess, completed Unasyn, on Augmentin
Former smoker, continued cessation recommended
DATA:
Echocardiogram, 12/09/2023:
Normal left ventricular size with mild concentric remodeling and normal
systolic function. No regional wall motion abnormalities are seen. LV ejection
fraction is 60-65% by Genao's method of discs. Normal diastolic function.
Normal right ventricular size and function.
Normal atria.
Aortic sclerosis without stenosis.
No other significant valve abnormalities.
No evidence of pulmonary hypertension.
Physical Exam
Vital Signs/Labs
Vital Signs
Temp Pulse Resp BP Pulse Ox
97.8 F 52 18 160/68 98
12/19/23 11:30 12/19/23 11:30 12/19/23 11:30 12/19/23 11:30 12/19/23 11:30
12/18/23 12/19/23 12/20/23
06:59 06:59 06:59
Actual Weight 73.057 kg 68.152 kg
12/19/23 06:33
12/19/23 06:33
Magnesium 1.8 mg/dl (1.6-2.3) 12/19/23 06:33
12/17/23
20:28
Jso-W-Fuuttxfcfku Pept 6260
LAB Results
12/17/23
21:58
Troponin I 0.019
Physical Exam
Cardiovascular: Rhythm & rate is regular and Pedal edema present (mild ankle edema bilat)
Respiratory: Crackles Present (few rales bases bilat)
GI: Soft, Non tender and Distention present
Neuro/Psych: AO x 3
Data Reviewed
-
Date of Service: December 19, 2023
Labs: Labs Reviewed by me
--- NOTE | 2023-12-19 13:14 | W.PN.HOSP.TC ---
Today's Communication/Plan
-
Monitor vital signs and see plan
continue with IV Lasix, statin
Continue monitor renal function
Assessment / Plan
Assessment / Plan
General: Well Developed, Well Nourished and Comfortable
HEENT: NormoCephalic, Moist mucous membranes, Atraumatic and PERRLA
Respiratory: Decreased Breath Sounds
Cardiac: S1/S2 and Regular Rhythm
GI: Soft, Non Tender, Non Distended and Normal Bowel Sounds
Musculoskeletal: Edema, Left Lower Extremity and Edema, Right Lower Extremity
Neuro: AO x 3
Psych: Calm
Acute CHFPEF
cw IV lasix
cardiology following
started aldactone
I and O's
bnp and cxr noted
Recent pelvic abscess
cw augmentin; last day 12/27
follow up with TOOL DESIGNER outpatient
par afib
-ECHO 12/08 with EF 60 to 65%, aortic sclerosis without stenosis
cw eliquis
-Lopressor
-cardiology following
Hypomagnesemia
replete
Hypokalemia
Hyponatremia
monitor
Essential hypertension
obesity
#DVT prophylaxis- eliquis
#CODE status -full code
Anticipated Discharge: 24 - 48 hours
Subjective/Interval History
-
Date of Service: December 19, 2023
denies pain
Objective Data
-
Labs:
Laboratory Results
12/19/23
06:33
WBC 9.2
Hgb 13.2
Hct 37.9
Plt Count 434 H D
Sodium 135
Potassium 3.6
Chloride 94 L
Carbon Dioxide 33 H
BUN 10
Creatinine 1.0
Glucose 90
Calcium 9.9
Vital Signs:
Vital Signs
Temp Pulse Resp BP Pulse Ox
97.8 F 52 18 160/68 98
12/19/23 11:30 12/19/23 11:30 12/19/23 11:30 12/19/23 11:30 12/19/23 11:30
I&O
12/18/23 12/19/23 12/20/23
06:59 06:59 06:59
Intake Total 360 / 360
Output Total 1000 / 1000 900 / 900
Balance -1000 / -1000 -540 / -540
[2023-12-19] MEDS: APRESOLINE 5 MG IV (17:06)
[2023-12-19] MEDS: XALATAN OPHTHALMIC SOLUTION 1 DROP BOTH EYES (17:06)
[2023-12-19] MEDS: TYLENOL 650 MG PO (19:49)
[2023-12-19] MEDS: TIMOPTIC 0.5% OPHTHALMIC SOLUTION BOTH EYES (20:28)
[2023-12-19 23:32] LABS: Blood Urea Nitrogen 18 mg/dl (7-17); Calcium 9.8 mg/dl (8.4-10.2); Carbon Dioxide 31 mmol/L (22-30); Chloride 92 mmol/L (98-107); Estimated Creatinine Clearance 42 ml/min; Glucose 98 mg/dl (70-99); Sodium 134 mmol/L (135-145); eGFR 56.95
[2023-12-19 23:39] LABS: Troponin I 0.014 ng/ml
[2023-12-19] MEDS: KCL 40 MEQ PO (23:54)
--- NOTE | 2023-12-20 00:06 | PTCARENOTE ---
Pt complains of chest 'pressure' in the right and left chest. The pressure is not radiating. Pt states that she never felt this way. She thinks it could be related to her anxiety, but never experienced same sx. VSS(UF=199/70, HR=6, SpO2=98% on RA).
Pt denies SOB, chills, or palpitations. EKG done with no STEMI. HOOP PUNCHER (Shantel) notified, ordered BMP and Trop. Trop came backneg (0.014), but K=3.0. 40 mEq of KCl given as per order. Pt states that she does not feel any chest pressure at this
time. Will continue to monitor.
[2023-12-20 03:25] VITALS: BP 156/66
[2023-12-20 05:52] VITALS: BMI 26.0
[2023-12-20 07:55] VITALS: BP 155/77
[2023-12-20] MEDS: AUGMENTIN 875 MG/125 MG 1 TABLET PO ×2 (08:11→20:05)
[2023-12-20] MEDS: ELIQUIS 5 MG PO ×2 (08:15→20:06)
[2023-12-20] MEDS: LOPRESSOR 12.5 MG PO ×2 (08:15→20:26)
[2023-12-20 08:16] LABS: % Basophils 1.5 % (0-2); % Eosinophils 1.5 % (0-6); % Immature Granulocytes 0.6 % (0-0.5); % Lymphocytes 19.7 % (20.5-51.1); % Monocytes 12.5 % (1.7-9.3); % Neutrophils 64.2 % (42.2-75.2); Absolute Basophils 0.1 10^3/uL (0-0.2); Absolute Eosinophils 0.1 10^3/uL (0-0.7); Absolute Immature Granulocytes 0.1 10^3/uL (0-0.05); Absolute Lymphocytes 1.7 10^3/uL (1.2-3.4); Absolute Monocytes 1.1 10^3/uL (0.1-0.6); Absolute Neutrophils 5.5 10^3/uL (1.4-6.5); Hematocrit 38.8 % (37.0-47.0); Hemoglobin 13.3 g/dL (12.0-16.0); Mean Corp Hgb Conc. 34.3 g/dL (33.0-37.0); Mean Corpuscular Hgb 30.4 pg (27.0-31.0); Mean Corpuscular Volume 88.6 fL (81.0-99.0); Mean Platelet Volume 11.3 fL (7.4-10.4); Nucleated Red Blood Cells % 0 %; Platelet Count 429 10^3/uL (130-400); Red Blood Cell Count 4.38 10^6/uL (4.20-5.40); Red Cell Dist. Width 14.7 % (11.5-14.5); White Blood Cell Count 8.6 10^3/uL (4.8-10.8)
[2023-12-20] MEDS: VITAMIN D3 (cholecalciferol) 50 MCG PO (08:16)
[2023-12-20] MEDS: ALDACTONE 25 MG PO (08:16)
[2023-12-20] MEDS: TIMOPTIC 0.5% OPHTHALMIC SOLUTION 1 DROP BOTH EYES (08:16)
[2023-12-20] MEDS: VASOTEC 40 MG PO (08:17)
[2023-12-20 08:38] LABS: Calcium 9.9 mg/dl (8.4-10.2); Carbon Dioxide 32 mmol/L (22-30); Estimated Creatinine Clearance 37 ml/min; Magnesium 1.7 mg/dl (1.6-2.3); Potassium 3.8 mmol/L (3.5-5.1); eGFR 56.95
[2023-12-20 08:45] LABS: Blood Urea Nitrogen 15 mg/dl (7-17); Chloride 92 mmol/L (98-107); Glucose 86 mg/dl (70-99); Sodium 133 mmol/L (135-145)
[2023-12-20] MEDS: LASIX 20 MG IV ×2 (09:09→17:02)
[2023-12-20 11:08] VITALS: BP 146/74
--- NOTE | 2023-12-20 11:24 | W.PN.HOSP.TC ---
Today's Communication/Plan
-
Monitor vitals
see plan
Continue with diuresis
Assessment / Plan
Assessment / Plan
General: Well Developed, Well Nourished and Comfortable
HEENT: NormoCephalic, Moist mucous membranes, Atraumatic and PERRLA
Respiratory: Decreased Breath Sounds
Cardiac: S1/S2 and Regular Rhythm
GI: Soft, Non Tender, Non Distended and Normal Bowel Sounds
Musculoskeletal: Edema, Left Lower Extremity and Edema, Right Lower Extremity
Neuro: AO x 3
Psych: Calm
Acute CHFPEF
cw IV lasix, diuresing well
cardiology following
started aldactone
I and O's
bnp and cxr noted
Recent pelvic abscess
cw augmentin; last day 12/27
follow up with TIME CLERK outpatient
Chest discomfort overnight likely secondary to anxiety
Monitor
par afib
-ECHO 12/08 with EF 60 to 65%, aortic sclerosis without stenosis
cw eliquis
-Lopressor
-cardiology following
Hypomagnesemia
replete
Hypokalemia
Hyponatremia
monitor
Essential hypertension
obesity
#DVT prophylaxis- eliquis
#CODE status -full code
Anticipated Discharge: Within 24 hours
Subjective/Interval History
-
Date of Service: December 20, 2023
Denies pain
Objective Data
-
Labs:
Laboratory Results
12/19/23 12/20/23
23:09 06:30
WBC 8.6
Hgb 13.3
Hct 38.8
Plt Count 429 H
Sodium 134 L 133 L
Potassium 3.0 L 3.8 D
Chloride 92 L 92 L
Carbon Dioxide 31 H 32 H
BUN 18 H 15
Creatinine 1.0 1.0
Glucose 98 86
Calcium 9.8 9.9
Vital Signs:
Vital Signs
Temp Pulse Resp BP Pulse Ox
98.1 F 58 16 146/74 98
12/20/23 11:08 12/20/23 11:08 12/20/23 11:08 12/20/23 11:08 12/20/23 11:08
I&O
12/19/23 12/20/23 12/21/23
06:59 06:59 06:59
Intake Total 360 / 360 1080 / 1080
Output Total 900 / 900 2200 / 2200
Balance -540 / -540 -1120 / -1120
[2023-12-20] MEDS: MAGNESIUM SULFATE 50 IV (12:32)
[2023-12-20] MEDS: KCL 40 MEQ PO (12:34)
[2023-12-20] MEDS: LOPRESSOR 5 MG IV (12:37)
--- NOTE | 2023-12-20 13:39 | W.PN.CD ---
Addendum entered and electronically signed by Kuldip Winkler MD 12/20/23 14:43:
converted to sinus after IV amio bolus. will hold drip for now.
Original Note:
Today's Communication / Plan
-
continue IV lasix
back in A fib: IV amio for rhythm control
Impression / Plan
-
BACKGROUND: 78F HTN, GERD, IBS and recent admission with left tubo-ovarian abscess (still completing Augmentin) presented to the ER with a chief complaint of orthopnea.
Business Development Officer: Dr. Blas
Volume overload (iatrogenic) vs HFPEF
-echo 12/08: EF 60-65%, aortic sclerosis, nl RV
-Volume overload with elevated proBNP, congestion on CXR and orthopnea
-Diuresis with furosemide 20mg IV BID, this requires intensive monitoring
-spironolactone 25mg daily added this admit (hypokalemia)
Hyponatremia, in the setting of hypervolemia - improving
Paroxysmal atrial fibrillation: now with recurrence today
-will use IV amiodarone overnight for rhythm control
-on metoprolol tartrate 12.5mg bid at home: continue
-Oral Anticoagulation: Apixaban 5mg BID
-[id number]: score at least 5 (Heart failure, HTN, age 75 or more, female gender)
HTN
-hypertensive this admit even with diuresis
-aladactone 25mg added this admission
Left tubo-ovarian abscess, completed Unasyn, on Augmentin
Former smoker, continued cessation recommended
Physical Exam
Vital Signs/Labs
Vital Signs
Temp Pulse Resp BP Pulse Ox
98.1 F 132 16 142/81 98
12/20/23 11:08 12/20/23 12:37 12/20/23 11:08 12/20/23 12:37 12/20/23 11:08
12/19/23 12/20/23 12/21/23
06:59 06:59 06:59
Actual Weight 68.152 kg 66.48 kg
12/20/23 06:30
12/20/23 06:30
Magnesium 1.7 mg/dl (1.6-2.3) 12/20/23 06:30
12/17/23
20:28
Ouq-L-Xrrgvhazvtm Pept 6260
LAB Results
12/17/23 12/19/23
21:58 23:09
Troponin I 0.019 0.014
Physical Exam
Constitutional: No acute distress and Comfortable
EENT: Moist mucous membranes
Cardiovascular: Systolic murmur absent, Rhythm/rate is irregular, Pedal edema present and JVD present
Respiratory: Respiratory effort normal and Lungs clear to auscul.
GI: Soft and Distention absent
Neuro/Psych: AO x 3
Data Reviewed
-
Date of Service: December 20, 2023
EKG: Other (NSR-->A fib 90s)
Labs: Labs Reviewed by me
[2023-12-20] MEDS: CORDARONE 103 MG IV (14:04)
[2023-12-20 15:00] VITALS: BP 124/60
[2023-12-20] MEDS: TYLENOL 650 MG PO ×2 (15:59→20:30)
--- NOTE | 2023-12-20 16:07 | PTCARENOTE ---
Pt alarming Afib on tele, rates 120-150s. Pt has no c/o chest pain or palpitations. Hosp and cards aware, amio bolus initiated. After bolus complete about to start gtt per orders, pt had 3 second pause and converted to NSR. Cards reviewed tele, hold
on gtt at this time. Pt c/o diarrhea, monitored output very small amounts each time not liquid, MD aware orders for Cdiff and stool culture. Pt also had fever at 3pm vitals check, no c/o pt feels well, Tylenol given per orders, covid, blood cultures
sent, updated pt on POC, tearful, emotional support provided.
[2023-12-20 16:14] LABS: COVID-19 Antigen Negative (Negative)
[2023-12-20] MEDS: XALATAN OPHTHALMIC SOLUTION 1 DROP BOTH EYES (17:01)
[2023-12-20 19:11] VITALS: BP 129/62
[2023-12-20] MEDS: TIMOPTIC 0.5% OPHTHALMIC SOLUTION BOTH EYES (21:21)
[2023-12-20 23:07] VITALS: BP 144/61
[2023-12-21 03:07] VITALS: BP 139/55
[2023-12-21 05:08] LABS: % Basophils 1.3 % (0-2); % Eosinophils 1.7 % (0-6); % Immature Granulocytes 0.7 % (0-0.5); % Lymphocytes 20.3 % (20.5-51.1); % Monocytes 12.7 % (1.7-9.3); % Neutrophils 63.3 % (42.2-75.2); Absolute Basophils 0.1 10^3/uL (0-0.2); Absolute Eosinophils 0.2 10^3/uL (0-0.7); Absolute Immature Granulocytes 0.1 10^3/uL (0-0.05); Absolute Lymphocytes 1.8 10^3/uL (1.2-3.4); Absolute Monocytes 1.1 10^3/uL (0.1-0.6); Absolute Neutrophils 5.6 10^3/uL (1.4-6.5); Hematocrit 35.5 % (37.0-47.0); Hemoglobin 12.4 g/dL (12.0-16.0); Mean Corp Hgb Conc. 34.9 g/dL (33.0-37.0); Mean Corpuscular Hgb 30.5 pg (27.0-31.0); Mean Corpuscular Volume 87.4 fL (81.0-99.0); Nucleated Red Blood Cells % 0 %; Platelet Count 378 10^3/uL (130-400); Red Blood Cell Count 4.06 10^6/uL (4.20-5.40); Red Cell Dist. Width 14.9 % (11.5-14.5); White Blood Cell Count 8.8 10^3/uL (4.8-10.8)
[2023-12-21 05:29] LABS: Blood Urea Nitrogen 19 mg/dl (7-17); Calcium 9.9 mg/dl (8.4-10.2); Carbon Dioxide 32 mmol/L (22-30); Chloride 95 mmol/L (98-107); Estimated Creatinine Clearance 31 ml/min; Glucose 90 mg/dl (70-99); Magnesium 2.1 mg/dl (1.6-2.3); Sodium 133 mmol/L (135-145); eGFR 45.76
[2023-12-21 06:00] VITALS: BMI 25.8
[2023-12-21 07:30] VITALS: BP 147/79
--- NOTE | 2023-12-21 07:34 | W.PN.HOSP.TC ---
Today's Communication/Plan
-
discharge
Assessment / Plan
Assessment / Plan
General: Well Developed, Well Nourished and Comfortable
HEENT: NormoCephalic, Moist mucous membranes, Atraumatic and PERRLA
Respiratory: clear to auscultation bilateral
Cardiac: S1/S2 and Regular Rhythm
GI: Soft, Non Tender, Non Distended and Normal Bowel Sounds
Musculoskeletal: no edema
Neuro: AO x 3
Psych: Calm
78F hx pelvic abscess on Augmentin to cont through 12/27 pAfib HTN Obesity GERD IBS here for acute HFpEF.
Acute CHFPEF
treated with IV lasix, diuresed well
bnp elevated 6260
CXR appreciated CHF vs volume overload
Cardio eval appreciated 12/20
-stable for discharge
-home HCTZ stopped
-new medications Lasix 20 mg PO Daily and aldactone 25 mg daily added
-cont home meds metoprolol 12.5 mg BID, Enalapril 40 mg daily, and Eliquis 5 mg BID
-outpatient follow up with Cardiology and repeat BMP in 1 week recommended
Mild NATHALY
Cr elevated 1.2 baseline 0.9
likely overdiuresis
IV diuresis completed
cont PO Lasix as per Cardio, to start tomorrow 12/21, repeat BMP in 1 wk
Recent pelvic abscess
cw augmentin; last day 12/27
cont follow up with CONSTRUCTION REP outpatient
Chest discomfort overnight likely secondary to anxiety
resolved
paroxysmal afib
-one occurrence during hospitalization resolved with single amio bolus
-ECHO 12/08 with EF 60 to 65%, aortic sclerosis without stenosis
-cw eliquis
-Lopressor
-cardiology eval appreciated as above
Hypomagnesemia
Hypokalemia
Repleted
Mild Hyponatremia since improved with discontinuation home HCTz
Essential hypertension
-cont home metoprolol enalapri
-PO Lasix Aldactone added as per Cardiol
#DVT prophylaxis- eliquis
#CODE status -full code
Discussed with patient at bedside and patient's son Arpit over phone.
Total Time Preparing Discharge ___50____ minutes including examination of the patient, summary of the hospital stay, instructions for continuing care to all relevant caregivers; and preparation of discharge records, prescriptions, and referral
forms if necessary.
Anticipated Discharge: Today
Subjective/Interval History
-
Date of Service: December 21, 2023
Seen and examined at bedside in no acute distress resting comfortably in bed. Overall reports feeling well, resolution of symptoms including lower ext leg swelling and shortness of breath. denies new acute issues at this time. Eager to go home.
Objective Data
-
Labs:
Laboratory Results
12/21/23
04:40
WBC 8.8
Hgb 12.4
Hct 35.5 L
Plt Count 378
Sodium 133 L
Potassium 4.0
Chloride 95 L
Carbon Dioxide 32 H
BUN 19 H
Creatinine 1.2 H
Glucose 90
Calcium 9.9
Vital Signs:
Vital Signs
Temp Pulse Resp BP Pulse Ox
97.4 F 59 16 139/55 96
12/21/23 03:07 12/21/23 03:07 12/21/23 03:07 12/21/23 03:07 12/21/23 03:07
I&O
12/20/23 12/21/23 12/22/23
06:59 06:59 06:59
Intake Total 1080 / 1080 480 / 480
Output Total 2200 / 2200 500 / 500
Balance -1120 / -1120 -20 / -20
[2023-12-21] MEDS: AUGMENTIN 875 MG/125 MG 1 TABLET PO (08:33)
[2023-12-21] MEDS: ALDACTONE 25 MG PO (08:33)
[2023-12-21] MEDS: ELIQUIS 5 MG PO (08:34)
[2023-12-21] MEDS: LOPRESSOR PO (08:34)
[2023-12-21] MEDS: VITAMIN D3 (cholecalciferol) 50 MCG PO (08:35)
[2023-12-21] MEDS: VASOTEC 40 MG PO (08:35)
[2023-12-21] MEDS: TIMOPTIC 0.5% OPHTHALMIC SOLUTION 1 DROP BOTH EYES (08:36)
--- NOTE | 2023-12-21 09:14 | W.PN.CD ---
Today's Communication / Plan
-
HCTZ stopped this admission
lasix 20mg PO daily to start tomorrow (new)
continue aldactone 25mg daily (new)
continue home meds metoprolol tartrate 12.5mg bid, enalapril 40mg daily, eliquis 5mg bid
stable for discharge from cardiac perspective
we will call patient for follow up and BMP in one week
Impression / Plan
-
BACKGROUND: 78F HTN, GERD, IBS and recent admission with left tubo-ovarian abscess (still completing Augmentin) presented to the ER with a chief complaint of orthopnea.
Mass Spectroscopist: Dr. Blas
Volume overload (iatrogenic) vs HFPEF: improved s/p IV lasix
-echo 12/08: EF 60-65%, aortic sclerosis, nl RV
-Volume overload with elevated proBNP, congestion on CXR and orthopnea
-no lasix today: lasix 20mg PO to start tomorrow
-continue aldactone 25mg daily
Hyponatremia, in the setting of hypervolemia - improved
-HCTZ also stopped
Paroxysmal atrial fibrillation
-one recurrence this admission: back to sinus after IV amio bolus x1
-on metoprolol tartrate 12.5mg bid at home: continue
-Oral Anticoagulation: Apixaban 5mg BID
-[id number]: score at least 5 (Heart failure, HTN, age 75 or more, female gender)
HTN
-continue enalapril
-aladactone 25mg added this admission
-HCTZ stopped due to hyponatremia
Left tubo-ovarian abscess, completed Unasyn, on Augmentin
Former smoker, continued cessation recommended
Physical Exam
Vital Signs/Labs
Vital Signs
Temp Pulse Resp BP Pulse Ox
97.7 F 52 16 173/72 98
12/21/23 07:30 12/21/23 08:35 12/21/23 07:30 12/21/23 08:35 12/21/23 08:29
12/20/23 12/21/23 12/22/23
06:59 06:59 06:59
Actual Weight 66.48 kg 65.969 kg
12/21/23 04:40
12/21/23 04:40
Magnesium 2.1 mg/dl (1.6-2.3) 12/21/23 04:40
12/17/23
20:28
Aks-F-Hgtypkumxxl Pept 6260
LAB Results
12/19/23
23:09
Troponin I 0.014
Physical Exam
Constitutional: No acute distress and Comfortable
EENT: Moist mucous membranes
Cardiovascular: Rhythm & rate is regular, Pedal edema is absent, JVD pressure is normal and Systolic murmur absent
Respiratory: Respiratory effort normal and Lungs clear to auscul.
GI: Soft and Distention absent
Neuro/Psych: AO x 3
Data Reviewed
-
Date of Service: December 21, 2023
EKG: Other (Tele: SR/SB, PAC's)
Labs: Labs Reviewed by me
[2023-12-21 09:51] VITALS: BMI 25.8
[2023-12-21 11:26] VITALS: BP 150/73
[2023-12-21 11:55] VITALS: BP 150/73
--- NOTE | 2023-12-21 14:06 | W.DCSUMMARY ---
Discharge Summary
Discharge Data
Date of Admission: 12/17/23
Date of Discharge: 12/21/23
-
Pending Results: No
Discharge Plan
-
Patient Disposition: Home (Routine Discharge)
Condition: Fair
Diet: Low Cholesterol, 2 Gram Sodium and Restrict fluids to 64 oz
Activity: As tolerated
Driving Restrictions: Not until seen by your Dr
Bathing Restrictions: None
Blood Work: Please repeat BMP with Cardiology and/or primary care provider in 1 week of discharge.
Specialty Instructions: Weigh Daily- Call MD for wt gain/loss 3 lbs overnight/5 lbs in 1 week
Activity Restrictions/Additional Instructions:
Please follow up with primary care provider and Cardiology in 1 week of discharge.
Lasix and spironolactone have been started to treat heart failure.
Please take medications as prescribed/recommended and follow up with primary care provider, cardiology, and/or other healthcare provider involved in your care for refills and/or further adjustment to your medication regimen as necessary.
Referrals:
Helena Cherry CRNP [Specified Professional Personl] - in one week
Prince Maldonado MD [Family Provider] - in one week
Prescriptions:
New
spironolactone 25 mg Tablet
25 mg PO DAILY 30 Days Qty: 30 0RF
furosemide 20 mg Tablet
20 mg PO DAILY 30 Days Qty: 30 0RF
Continued
acetaminophen [Tylenol] 325 mg Tablet
650 mg PO Q4HPRN PRN (Reason: MILD PAIN)
enalapril maleate 20 mg Tablet
40 mg PO DAILY
loperamide 2 mg Tablet
2 mg PO BIDPRN PRN (Reason: diarrhea )
timolol maleate 0.5 % Gel Forming Solution
1 drp BOTH EYES HS
cholecalciferol (vitamin D3) [Vitamin D3] 50 mcg (2,000 unit) Tablet
50 mcg PO DAILY
Rx Instructions:
M-F
Lumigan 0.01 % Drops
1 drp BOTH EYES QPM
Eliquis 5 mg Tablet
5 mg PO BID Qty: 60 0RF
amoxicillin-pot clavulanate 875-125 mg tablet
1 tab PO BID Qty: 28 0RF
Culturelle 10 billion cell Capsule
1 cap PO DAILY
metoprolol tartrate 25 mg tablet
12.5 mg PO BID
Patient Comments:
12/17/2023: Restarted last night (12/16/23). Family did not see direction to 1/2 tab BID, and gave 1 full tab last night, and 1 full tab this AM, evening dose not given.
Discontinued
hydrochlorothiazide 25 mg Tablet
25 mg PO DAILY
Discharge Date and Time
Print Language: TURKISH
--- NOTE | 2023-12-21 14:56 | CM ---
CM met with Regla and her step daughter who is her caregiver while she recouperates. Regla had been hospitalized for an abscess about 10 days ago and was readmitted. Referral to [facility] via [facility].
Plan: Regla will be returning home with [facility] services and assistance by her step-daughter.
[facility]:
== END 2023-12-21 15:45 | disposition home or self-care (01) | DRG 291 ==
LOC: 4 EAST ACU 23:11
PROVIDERS: Emergency Medicine; Internal Medicine; Nurse Practitioner Family; ADMITTING PHYSICIAN Internal Medicine; ATTENDING PHYSICIAN Internal Medicine; CONSULT PHYSICIAN Internal Medicine Cardiovascular Disease; EMERGENCY PHYSICIAN Emergency Medicine; FAMILY PHYSICIAN Internal Medicine
DX: I11.0 Hypertensive heart disease with heart failure (principal); I50.31 Acute diastolic (congestive) heart failure; E87.1 Hypo-osmolality and hyponatremia; E83.42 Hypomagnesemia; E87.6 Hypokalemia; I48.0 Paroxysmal atrial fibrillation
CPT/HCPCS: 71046; 80048; 80053; 83036; 83735; 83880; 84443; 84484; 85025; 85027; 87040; 87045; 87046; 87324; 87427; 87449; 87811; 89055; 93005; 96374; 99285

== ENCOUNTER → 2024-01-29 11:02 | Outpatient (REF) | payer MEDICARE, SELFPAY | LOC: DHCBC/DCA 11:02 | PROVIDERS: ATTENDING PHYSICIAN Nurse Practitioner; FAMILY PHYSICIAN Internal Medicine | DX: I48.0 Paroxysmal atrial fibrillation (principal); I50.32 Chronic diastolic (congestive) heart failure; I10 Essential (primary) hypertension | CPT/HCPCS: 78452; 93017; A9500; J2785 ==

== ENCOUNTER → 2024-02-05 15:42 | Outpatient (REF) | payer MEDICARE, SELFPAY | LOC: RAD 15:42 | PROVIDERS: ATTENDING PHYSICIAN Obstetrics & Gynecology; FAMILY PHYSICIAN Internal Medicine; REFERRING PHYSICIAN Obstetrics & Gynecology | DX: N85.00 Endometrial hyperplasia, unspecified (principal); R19.00 Intra-abdominal and pelvic swelling, mass and lump, unspecified site | CPT/HCPCS: 76830; 76856 ==

== ENCOUNTER 2024-02-23 21:43 | Inpatient (IN) | payer MEDICARE, SELFPAY ==
[2024-02-23 18:21] VITALS: BP 132/90
[2024-02-23 18:38] LABS: % Basophils 0.7 % (0-2); % Eosinophils 0.8 % (0-6); % Immature Granulocytes 0.8 % (0-0.5); % Lymphocytes 12.3 % (20.5-51.1); % Monocytes 10.7 % (1.7-9.3); % Neutrophils 74.7 % (42.2-75.2); Absolute Basophils 0.1 10^3/uL (0-0.2); Absolute Eosinophils 0.1 10^3/uL (0-0.7); Absolute Immature Granulocytes 0.1 10^3/uL (0-0.05); Absolute Lymphocytes 1.9 10^3/uL (1.2-3.4); Absolute Monocytes 1.7 10^3/uL (0.1-0.6); Absolute Neutrophils 11.8 10^3/uL (1.4-6.5); Hematocrit 38.9 % (37.0-47.0); Hemoglobin 13.5 g/dL (12.0-16.0); Mean Corp Hgb Conc. 34.7 g/dL (33.0-37.0); Mean Corpuscular Hgb 31.3 pg (27.0-31.0); Mean Platelet Volume 11.4 fL (7.4-10.4); Nucleated Red Blood Cells % 0 %; Platelet Count 419 10^3/uL (130-400); Red Blood Cell Count 4.32 10^6/uL (4.20-5.40); Red Cell Dist. Width 13.1 % (11.5-14.5); White Blood Cell Count 15.8 10^3/uL (4.8-10.8)
[2024-02-23 19:02] LABS: ALT (SGPT) 13 U/L (0-35); AST (SGOT) 26 U/L (14-36); Albumin 3.7 g/dl (3.5-5.0); Alkaline Phosphatase 74 U/L (38-126); Blood Urea Nitrogen 31 mg/dl (7-17); Calcium 9.9 mg/dl (8.4-10.2); Carbon Dioxide 25 mmol/L (22-30); Chloride 94 mmol/L (98-107); Glucose 99 mg/dl (70-99); Lipase 393 U/L (23-300); Potassium 4.5 mmol/L (3.5-5.1); Sodium 131 mmol/L (135-145); Total Bilirubin 0.9 mg/dl (0.2-1.3); Total Protein 6.2 g/dl (6.3-8.2)
--- NOTE | 2024-02-23 19:22 | ED.GENMED ---
History of Present Illness
General
Chief Complaint: Abdominal Pain
Time Seen by Provider: 02/23/24 19:22
History of Present Illness
History of Present Illness:
HPI: Patient presents due to left lower quadrant pain that started about a week ago this is described more of a soreness in comparison to the more significant pain that she had a couple of months ago. She was admitted here 2 months ago with pelvic
abscess and was also treated for CHF/volume overload. She had a drainage catheter placed for the pelvic abscess. No bowel habit changes, no fevers, no nausea or vomiting.
No fevers, no nausea vomiting. She had blood work done 4 days ago in preparation for pelvic MRI and leukocytosis was noted. She was informed of the leukocytosis today and was told to come here.
EXAM:
GENERAL: Well appearing in no distress
HEENT: Moist oral mucosa
CARDIOVASCULAR: No murmurs, normal heart rate, regular rhythm, No chest wall tenderness
PULMONARY: No respiratory distress, breath sounds are clear and equal
ABDOMEN: Soft with no peritoneal signs, no tenderness
NEUROLOGIC: Excellent strength all extremities, no coordination deficits
PSYCHIATRIC: Appropriate mental status, normal insight and judgement
EXTREMITIES: Nontender, no edema, moves all extremities equally
SKIN: No rash, no lesions
TIME OF INITIAL ENCOUNTER: 7:15 PM
NUMBER AND COMPLEXITY OF PROBLEMS ADDRESSED AT THE ENCOUNTER
� Chronic conditions affecting care: A-fib on Eliquis, GERD, IBS, renal insufficiency, hemochromatosis
� Acute Exacerbation and/or Progression of Chronic Illness: This is an acute problem
� Differential Diagnosis includes: Recurrence of pelvic abscess, diverticulitis, viral syndrome, doubt UTI given lack of urinary symptoms
AMOUNT AND/OR COMPLEXITY OF DATA TO BE REVIEWED AND ANALYZED
� I performed an independent evaluation of and my interpretation is:
EKG:
CT: I personally viewed CT imaging and agree with radiologist that there is a left-sided abscess. Radiologist felt that this is diverticular in nature.
X-rays:
Laboratory Studies: White count is 15.8, creatinine 1.1, LFTs normal, lipase minimally elevated 393
Other:
� Review of other/old records: I reviewed the discharge summary from this past November
� Clinical information was obtained by an independent historian: None needed
� Prescriptions/Medications Considered but not given:
� Further testing considered but not performed:
RISK OF COMPLICATIONS AND/OR MORBIDITY OR MORTALITY OF PATIENT MANAGEMENT
� Social determinants of health affecting care: Lives at home
� Discussion with other providers: Notified Dr. Carvalho and of asked Dr. Nolan for admission at 8:50 PM
� Escalation of care including admission/observation vs risk of discharge considered: Leukocytosis noted on today's labs. Although she has rather minimal symptoms, given her recent history, CT imaging was obtained as summarized
above. I have ordered IV antibiotics.
Past History
Past History
ED Past Medical History: Other (A-fib, hypertension, pelvic abscess status post drainage November 2023)
Social History
Tobacco: Non-smoker
Alcohol: None
Drug: None
Living: with family
Phy Exam
Physical Exam
Physical Exam:
See HPI
Course
Orders/Labs/Results
Orders:
Orders
02/23/24 18:28
Complete Blood Count/With Diff Urgent
Comprehensive Metabolic Panel Urgent
Lipase Urgent
02/23/24 19:25
CT Abd/pelvis W Iv Cont Urgent
Comment:
Reason For Exam: L pain, new high WBC, abnormal CT November
Abnormal Lab Results
02/23/24
18:28
WBC 15.8 H 10^3/uL
(4.8-10.8)
MCH 31.3 H pg
(27.0-31.0)
Plt Count 419 H 10^3/uL
(130-400)
MPV 11.4 H fL
(7.4-10.4)
Abs Immat Gran (auto) 0.1 H 10^3/uL
(0-0.05)
Absolute Neuts (auto) 11.8 H 10^3/uL
(1.4-6.5)
Absolute Monos (auto) 1.7 H 10^3/uL
(0.1-0.6)
Immature Gran % 0.8 H %
(0-0.5)
Lymphocytes % 12.3 L %
(20.5-51.1)
Monocytes % 10.7 H %
(1.7-9.3)
Sodium 131 L mmol/L
(135-145)
Chloride 94 L mmol/L
(98-107)
BUN 31 H mg/dl
(7-17)
Creatinine 1.1 H mg/dL
(0.6-1.0)
Total Protein 6.2 L g/dl
(6.3-8.2)
Lipase 393 H U/L
(23-300)
02/23/24 18:28
02/23/24 18:28
Vital Signs
Initial and Last Documented VS:
Initial Vital Signs
Temp Pulse Resp BP Pulse Ox
98.3 F 57 16 132/90 97
02/23/24 18:21 02/23/24 18:21 02/23/24 18:21 02/23/24 18:21 02/23/24 18:21
Last Documented Vital Signs
Temp Pulse Resp BP Pulse Ox
98.3 F 74 19 117/104 98
02/23/24 18:21 02/23/24 20:51 02/23/24 20:51 02/23/24 20:57 02/23/24 20:57
*Critical Care Note
Total Time (30-74mins, 75-104mins- exclusive of procedures): Not Applicable
ED Attending Note
-
Portions of this chart may have been created with voice recognition software.� Occasional wrong word or��sound alike� substitutions may have occurred due to the inherent limitations of voice recognition software.
Discharge Plan
Departure
Patient Disposition: Admit
Date of Disposition: 02/23/24
Time of Disposition: 20:49
Presentation/result/management discussed w/ accepting MD/DO: Hospitalist
Discharge Problem:
Pelvic abscess
Prescriptions:
No Action
enalapril maleate 20 mg Tablet
40 mg PO DAILY
loperamide 2 mg Tablet
2 mg PO BIDPRN PRN (Reason: diarrhea )
timolol maleate 0.5 % Gel Forming Solution
1 drp BOTH EYES DAILY
cholecalciferol (vitamin D3) [Vitamin D3] 50 mcg (2,000 unit) Tablet
50 mcg PO MOTUWETHFR
Lumigan 0.01 % Drops
1 drp BOTH EYES HS
Eliquis 5 mg Tablet
5 mg PO BID Qty: 60 0RF
Culturelle 10 billion cell Capsule
1 cap PO DAILY
metoprolol tartrate 25 mg tablet
12.5 mg PO BID
spironolactone 25 mg Tablet
25 mg PO DAILY 30 Days Qty: 30 0RF
acetaminophen [Tylenol Extra Strength] 500 mg Tablet
1,000 mg PO Q6HPRN PRN (Reason: mild pain)
fluoxetine 20 mg Capsule
20 mg PO DAILY
furosemide 20 mg tablet
20 mg PO MOWEFR
Referrals:
Prince Maldonado MD [Family Provider] -
Interventions
Interventions:
*Risk Screen - Suicide Last Done: 02/23/24 18:21
*General Assessment Last Done: 02/23/24 18:21
*Neglect/Abuse Screening Last Done: 02/23/24 18:21
ED- Fall Risk Assessment Last Done: 02/23/24 19:36
*ED COVID-19 Vaccine History Last Done: 02/23/24 18:21
XG-Fcalrm-Kwlgfhhmtf Assessment Last Done: 02/23/24 19:36
Discharge Date and Time
Print Language: GHANAIAN
[2024-02-23 19:34] VITALS: BP 133/67
[2024-02-23 20:14] VITALS: BP 143/74
[2024-02-23 20:57] VITALS: BP 117/104
[2024-02-23 21:00] VITALS: BP 134/76
--- NOTE | 2024-02-23 21:39 | HPS.HSE ---
Family Physician
-
Family Physician: Prince Maldonado
Chief Complaint
-
LLQ Pain
History of Present Illness
Patient is an 78y F with PMH significant for hypertension, HFpEF, A-Fib and recent pelvic abscess who presents to ED for evaluation of recurrent / increased pelvic abscess. Patient was initially seen here in November of this year with LLQ abscess.
She underwent IR drainage at that time. Cultures grew Citrobacter and Klebsiella. Patient was treated with drainage catheter and abx and ultimately discharge to home. Patient also underwent endometrial biopsy / pelvic exam under anesthesia during
that visit. Biopsy was difficult due to cervical stenosis. Patient states that she has been followed by Dr. Cabello since that time. She was seen about 2 weeks ago and tentative plan was for outpatient labs, MRI, sigmoidoscopy and - ultimately -
ex lap with resection.
Patient reports intermittent LLQ discomfort since her November visit. She has had no other symptoms including fevers / chills, N/V/D, urinary complaints, vaginal bleeding / discharge, etc.
She states that her discomfort seemed somewhat worse this past weekend.
Today she was contacted by her PCP who noted that her WBC was elevated on outpatient labs and advised her to present to the ED.
Medical History
Past Medical History
Past Medical History: Reports Other
Additional Past Medical History:
Hypertension
HFpEF
Paroxysmal Atrial Fibrillation
CKD IIIa
Glaucoma
Past Surgical History: Reports Other
Additional Past Surgical History:
Cholecystectomy
T&A
L Pelvic Abscess Drainage
Endometrial Biopsy
Social History
Tobacco: Former Smoker (Quit smoking 20 years ago. )
Alcohol: Occasional
Drug: None
Family History
Family History: Not pertinent
Allergies / Home Medications
Allergies reflects when Allergies were last updated in [facility].
Home Medications with original date entered in [facility]
Allergy/Medication List:
Allergies
Allergy/AdvReac Type Severity Reaction Status Date / Time
amlodipine Allergy Unknown Unknown Verified 02/23/24 18:24
lisinopril Allergy abdominal Verified 02/23/24 18:24
cramping
unknown drug Allergy Unknown Uncoded 02/23/24 18:24
Home Medications
bimatoprost 0.01 % eye drops (Lumigan) 1 drp BOTH EYES HS eye condition 12/08/23
cholecalciferol (vitamin D3) 50 mcg (2,000 unit) tablet (Vitamin D3) 50 mcg PO MOTUWETHFR supplement 12/08/23
enalapril maleate 20 mg tablet 40 mg PO DAILY blood pressure 12/08/23
loperamide 2 mg tablet 2 mg PO BIDPRN PRN diarrhea 12/08/23
timolol maleate 0.5 % eye gel forming solution 1 drp BOTH EYES DAILY eye condition 12/08/23
apixaban 5 mg tablet (Eliquis) 5 mg PO BID #60 tabs 12/14/23
Lactobacillus rhamnosus GG 10 billion cell capsule (Culturelle) 1 cap PO DAILY Supplement 12/17/23
metoprolol tartrate 25 mg tablet 12.5 mg PO BID Blood Pressure 12/17/23
spironolactone 25 mg tablet 25 mg PO DAILY 30 days #30 tabs 12/21/23
acetaminophen 500 mg tablet (Tylenol Extra Strength) 1,000 mg PO Q6HPRN PRN mild pain 02/23/24
fluoxetine 20 mg capsule 20 mg PO DAILY 02/23/24
furosemide 20 mg tablet 20 mg PO MOWEFR 02/23/24
Review of Systems
-
History Source: Patient
A 12 point ROS was completed and negative except as noted: Yes
Constitutional: Denies Fever, Fatigue or Chills
Respiratory: Denies Cough or Trouble Breathing
Cardiac: Denies Chest Pain or Palpitations
Abdomen/GI: Reports Abdominal Pain; Denies Nausea, Vomiting or Diarrhea
: Denies Dysuria, Frequency or Flank Pain
Musculoskeletal: Denies Joint Pain or Edema
Neurological: Denies Dizzy or Headache
Psych: Denies Depression or Anxiety
Physical Exam
Vital Signs
Vital Signs
Temp Pulse Resp BP Pulse Ox
98.3 F 74 19 134/76 98
02/23/24 18:21 02/23/24 20:51 02/23/24 20:51 02/23/24 21:00 02/23/24 21:15
Physical Exam
General: Other (78y F in no acute distress.)
HEENT: Moist mucous membranes and PERRLA
Respiratory: Clear; No Wheezes, Rales or Rhonchi
Cardiac: S1/S2 and Regular Rhythm; No Murmur
GI: Soft, Non Tender, Non Distended, Normal Bowel Sounds and Other (Fullness in the LLQ - but no tenderness, rebound, guarding.)
Musculoskeletal: No Clubbing, No Cyanosis, No Edema and Other (Chronic venous stasis skin changes.)
Neuro: AO x 3
Laboratory Results
-
02/23/24 18:28
02/23/24 18:28
Laboratory Results
Total Bilirubin 0.9 mg/dl (0.2-1.3) 02/23/24 18:28
AST 26 U/L (14-36) 02/23/24 18:28
ALT 13 U/L (0-35) 02/23/24 18:28
Alkaline Phosphatase 74 U/L (38-126) 02/23/24 18:28
Lipase 393 U/L (23-300) H 02/23/24 18:28
Impression/Plan
-
A/P: Patient is an 78y F with PMH significant for HTN, A-Fib and CHF who presents to ED for evaluation of LLQ pain and increased WBC.
Pelvic Abscess
Leukocytosis
- Admit for further evaluation and treatment.
- CT done in the ED today shows significant increase in size of fluid collection abscess.
- ? primarily L adnexal or sigmoid colon in origin.
- Has been followed by [facility] since prior admission. Consulted for further evaluation.
- Will ask Colorectal to evaluate as well - may at least need sigmoidoscopy prior to any definitive surgical intervention.
- Patient is clinically well-appearing, afebrile, etc.
- Empiric abx for now with Zosyn.
- ? IR re-eval for drainage versus more definitive surgical resection.
- Follow-up cultures, path results, etc from any samples - IR or surgical.
Benign Hypertension
- Stable. Hold spironolactone and lisinopril acutely.
- Continue metoprolol with holding parameters.
Paroxysmal Atrial Fibrillation
- Stable. Continue metoprolol
- Hold Eliquis acutely pending any invasive procedure(s).
Chronic HFpEF
- Had volume overload after initial November admission requiring diuresis.
- Does not appear volume overloaded on today's exam
- Hold Lasix / spironolactone for now.
- Follow I/Os, daily weights, etc.
DVT Prophylaxis: SCDs
Code Status: Full
[2024-02-23] MEDS: ZOSYN 50 IV (23:04)
[2024-02-23 23:28] VITALS: BP 155/65
--- NOTE | 2024-02-23 23:36 | PTCARENOTE ---
Pt arrived from ED via stretcher and ambulated to bed w/ single point cane and family member at bedside. Pt is AAOx3, VSS, and w/o complaints of pain. Pt is oriented to room resting comfortably w/ call parrish within reach.
[2024-02-24 03:23] VITALS: BP 131/63
[2024-02-24] MEDS: ZOSYN 50 IV ×4 (03:38→21:00)
[2024-02-24 06:00] VITALS: BMI 25.2
[2024-02-24 07:30] VITALS: BP 141/62
[2024-02-24 07:36] LABS: Hemoglobin 12.9 g/dL (12.0-16.0); Mean Corp Hgb Conc. 34.9 g/dL (33.0-37.0); Mean Corpuscular Hgb 31.3 pg (27.0-31.0); Mean Corpuscular Volume 89.8 fL (81.0-99.0); Mean Platelet Volume 11.5 fL (7.4-10.4); Platelet Count 330 10^3/uL (130-400); Red Blood Cell Count 4.12 10^6/uL (4.20-5.40); Red Cell Dist. Width 13.2 % (11.5-14.5); White Blood Cell Count 10.4 10^3/uL (4.8-10.8)
[2024-02-24 07:47] LABS: Blood Urea Nitrogen 21 mg/dl (7-17); Calcium 9.2 mg/dl (8.4-10.2); Carbon Dioxide 26 mmol/L (22-30); Chloride 97 mmol/L (98-107); Estimated Creatinine Clearance 37 ml/min; Glucose 90 mg/dl (70-99); Potassium 4.3 mmol/L (3.5-5.1); Sodium 134 mmol/L (135-145); eGFR 56.95
[2024-02-24] MEDS: LOPRESSOR 12.5 MG PO (09:23)
[2024-02-24] MEDS: PROZAC 20 MG PO (09:23)
[2024-02-24] MEDS: TYLENOL 650 MG PO (09:26)
[2024-02-24 11:18] VITALS: BP 121/52
--- NOTE | 2024-02-24 12:30 | W.PN.HOSP.TC ---
Today's Communication/Plan
-
MRI pelvis
with severe anxiety for MRI-Ativan added
IV abx
Await [facility] recs
Assessment / Plan
Assessment / Plan
A/P: Patient is an 78y F with PMH significant for HTN, A-Fib and CHF who presents to ED for evaluation of LLQ pain and increased WBC.
Pelvic Abscess
Leukocytosis
- CT done in the ED on admisison shows significant increase in size of fluid collection abscess.
- ? primarily L adnexal or sigmoid colon in origin.
- Patient is clinically well-appearing, afebrile, etc.
- Empiric abx for now with Zosyn.
- MRI pelvis w/wo ordered per [facility] to further delineate
- Follow-up cultures, path results, etc from any samples - IR or surgical.
- Appreciate [facility] recs.
Benign Hypertension
- Stable. Hold spironolactone and lisinopril acutely.
- Continue metoprolol with holding parameters.
Paroxysmal Atrial Fibrillation
- Stable. Continue metoprolol
- Hold Eliquis acutely pending any invasive procedure(s).
Chronic HFpEF
- Hold Lasix / spironolactone for now.
- Follow I/Os, daily weights, etc.
DVT Prophylaxis: SCDs
Code Status: Full
d/w with patient son at bedside in details.
Anticipated Discharge: > 48 hours
Subjective/Interval History
-
Date of Service: February 24, 2024
states of LLQ abd pain
no nausea or vomiting
no fever
Objective Data
-
Labs:
Laboratory Results
02/24/24
06:39
WBC 10.4
Hgb 12.9
Hct 37.0
Plt Count 330 D
Sodium 134 L
Potassium 4.3
Chloride 97 L
Carbon Dioxide 26
BUN 21 H
Creatinine 1.0
Glucose 90
Calcium 9.2
Vital Signs:
Vital Signs
Temp Pulse Resp BP Pulse Ox
98.1 F 52 16 121/52 98
02/24/24 11:18 02/24/24 11:18 02/24/24 11:18 02/24/24 11:18 02/24/24 11:18
Physical Exam
-
General: Well Developed and No Apparent Distress
HEENT: Normocephalic, Atraumatic and Moist Mucous Membranes
Respiratory: Clear to Auscultation
Cardiac: Regular Rhythm and S1/S2; Negative Murmur, Rub or Gallop
GI: Soft, Nondistended, Normal Bowel Sounds and Tender (LLQ); Negative Organomegaly
Rectal: Deferred by Provider
Musculoskeletal: No Clubbing, No Cyanosis and No Edema
Skin: Negative Rash
Neuro: Awake, Alert, Oriented, AO x 3, No Motor Deficits and Nonfocal/Grossly Intact
Psych: Calm
Data Reviewed
-
Total Time Spent with Patient (in minutes): 56
--- NOTE | 2024-02-24 12:37 | CON.CRS ---
Consultation
-
Date/Time Consultation Requested: 02/23/2024, 22:18
Date/Time Consultation Performed: 02/24/2024, 08:30
Requesting Provider: Jalen Nolan DO
Performing Provider: Stan Griffith MD
Reason for Consultation: diverticular abscess
Medical History
-
Chief Complaint: abdominal pain
History of Present Illness:
78-year-old female with a recent history of a pelvic abscess in November, atrial fibrillation, and history of IBS, presents to the ER due to worsening left lower quadrant pain. The patient had been admitted to [facility] on 12/08/2023 and
subsequently discharged on 12/20 due to a pelvic abscess. During that admission she had underwent a pelvic abscess drainage on 12/09/2023 by interventional radiology as well as an EUA, D&C, and endometrial biopsy by gynecology on 12/11/2023.
She had been doing well since her discharge until about 5 days ago when she noted persistent left lower quadrant pain. She denies nausea or vomiting or fevers or chills. She is still having bowel movements without blood. Due to her abdominal
pain, she had outpatient lab work done by her primary care physician who noted leukocytosis. She was then sent to the ER.
In the ER her WBC was 15.8. She remained afebrile and her vital signs were normal. CT of the abdomen and pelvis showed recurrent 6.8 cm diverticular abscess in the left lower quadrant posterior to the sigmoid colon involving the left adnexa. She
was started on IV antibiotics. Of note, her last colonoscopy was 1 or [address] [facility]. Report is not available for review. We have been consulted for further surgical recommendations.
Past Medical History
Past Medical History: Arrhythmias (Atrial fibrillation), HTN and Other (Chronic kidney disease, glaucoma)
Past Surgical History: Cholecystectomy and Other (L Pelvic Abscess Drainage, Endometrial Biopsy)
Social History
Tobacco: Former Smoker
Alcohol: Occasional
Drug: None
Family History
Family History: Reviewed & Not Pertinent
Allergies / Home Medications
Allergy/AdvReac Type Severity Reaction Status Date / Time
amlodipine Allergy Unknown Unknown Verified 02/23/24 18:24
lisinopril Allergy abdominal Verified 02/23/24 18:24
cramping
unknown drug Allergy Unknown Uncoded 02/23/24 18:24
�Medication �Instructions �Recorded �Confirmed �Type
bimatoprost 0.01 % eye drops 1 drp BOTH EYES HS eye condition 12/08/23 02/23/24 History
(Lumigan)
cholecalciferol (vitamin D3) 50 50 mcg PO MOTUWETHFR supplement 12/08/23 02/23/24 History
mcg (2,000 unit) tablet (Vitamin
D3)
enalapril maleate 20 mg tablet 40 mg PO DAILY blood pressure 12/08/23 02/23/24 History
loperamide 2 mg tablet 2 mg PO BIDPRN PRN diarrhea 12/08/23 02/23/24 History
timolol maleate 0.5 % eye gel 1 drp BOTH EYES DAILY eye condition 12/08/23 02/23/24 History
forming solution
apixaban 5 mg tablet (Eliquis) 5 mg PO BID #60 tabs 12/14/23 02/23/24 Rx
Lactobacillus rhamnosus GG 10 1 cap PO DAILY Supplement 12/17/23 02/23/24 History
billion cell capsule (Culturelle)
metoprolol tartrate 25 mg tablet 12.5 mg PO BID Blood Pressure 12/17/23 02/23/24 History
spironolactone 25 mg tablet 25 mg PO DAILY 30 days #30 tabs 12/21/23 02/23/24 Rx
acetaminophen 500 mg tablet 1,000 mg PO Q6HPRN PRN mild pain 02/23/24 02/23/24 History
(Tylenol Extra Strength)
fluoxetine 20 mg capsule 20 mg PO DAILY 02/23/24 02/23/24 History
furosemide 20 mg tablet 20 mg PO MOWEFR 02/23/24 02/23/24 History
Review of Systems
-
A 10 point review of systems was completed, and was negative except as per HPI.
Physical Exam
Vital Signs
Temp 98.1 F 02/24/24 11:18
Pulse 52 02/24/24 11:18
Resp Rate 16 02/24/24 11:18
Blood pressure 121/52 02/24/24 11:18
SaO2 98 02/24/24 11:18
02/23/24 02/24/24 02/25/24
06:59 06:59 06:59
Actual Weight 64.54 kg
Body Mass Index (BMI) 25.2
Lab Results / Allergies
02/24/24 06:39
02/24/24 06:39
WBC 10.4 10^3/uL (4.8-10.8) 02/24/24 06:39
Hgb 12.9 g/dL (12.0-16.0) 02/24/24 06:39
Hct 37.0 % (37.0-47.0) 02/24/24 06:39
Plt Count 330 10^3/uL (130-400) D 02/24/24 06:39
Abs Immat Gran (auto) 0.1 10^3/uL (0-0.05) H 02/23/24 18:28
Neutrophils % 74.7 % (42.2-75.2) 02/23/24 18:28
Allergy/AdvReac Type Severity Reaction Status Date / Time
amlodipine Allergy Unknown Unknown Verified 02/23/24 18:24
lisinopril Allergy abdominal Verified 02/23/24 18:24
cramping
unknown drug Allergy Unknown Uncoded 02/23/24 18:24
Physical Exam
General: Well Developed and Well Nourished
GI: Soft, Non Tender and Non Distended
Skin: Warm and Dry
Neuro: AO x 3
Psych: Calm
Assessment / Plan
-
Assessment: 78-year-old female with a history of a pelvic abscess November 2023 status post IR drainage, presents with left lower quadrant pain for the past 5 days and found to have recurrent 6.8 cm diverticular abscess in the left lower quadrant
posterior to the sigmoid colon
Plan:
-Will consult IR for drainage
-Continue IV antibiotics
-N.p.o. for interventional radiology
-MRI pelvis pending per [facility]
-No plans for emergent surgery at this time
-Will follow
[2024-02-24 12:50] VITALS: BMI 25.2
--- NOTE | 2024-02-24 13:17 | CON.MD ---
Consultation - Medical
-
HPI: Patient is an 78yo with a history of a TOA vs diverticular abscess who was sent to the ED after an elevated white count on outpatient labs. Patient was admitted in November for a similar abscess. At that time, it was thought to be a TOA. It
was drained by IR and grew Citrobacter, Klebsiella and S. viridans grew from the abscess. Patient completed 2 weeks of Augmentin on discharge. There were no malignant cells on cytology from the abscess. She also had a thickened endometrium on pelvic
US. D&C was attempted, but only EMB was completed secondary to cervical stenosis. Pathology showed fragments of endocervical polyp and fragments of mucus, endocervical glands and squamous epithelium with atrophy but no endometrial tissue. Patient
followed up with SCANNING COORDINATOR outpatient and plan was to get tumor markers, an MRI, a consult with colorectal and then for patient to follow up with Dr. Hanks for likely surgical removal. Patient says that since the weekend she has noticed an increase in
her left lower quadrant pain. The pain improves with Tylenol. She denies postmenopausal bleeding.
PMHx: HTN, GERD, CKD, IBS
PSHx: cholecystectomy
POBHx: x2
FamHx: non contributory
SHx: former smoker, no illicit drug use
Meds: See med list
All: NKDA
Objective:
Vitals: BP 121/52, HR 52, RR 16
Physical exam:
Gen: nad aaox3, lying in bed
Pulm: no increased work of breathing
Abd: soft, non distended, non tender, no rebound, rigidity, or guarding
Psych: appropriate affect
CTAP: IMPRESSION:
1. RECURRENT 6.8 cm DIVERTICULAR ABSCESS in the LEFT LOWER QUADRANT posterior to the sigmoid colon involving the left adnexa.
2. Severe diverticulosis throughout the sigmoid colon.
3. Severe calcific atherosclerotic plaque in the abdominal aorta and iliac arteries.
4. Mild splenomegaly.
5. Moderate chronic bilateral renal disease.
6. Mild biliary dilatation secondary to previous cholecystectomy.
7. 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
8. Bilateral inflammatory sacroiliitis.
A/P: Patient is an 78yo with recurrent diverticular abscess vs TOA
- Per CT read, abscess is 6.8cm and diverticular involving the left adnexa.
- Plan was for patient to get a pelvic MRI outpatient. MRI pelvis ordered for while patient admitted
- Discussed case with Dr. Hanks, Set Up Machinist/Onc who agrees with ordered MRI. Tumor markers ordered outpatient were normal. Recommend IR drainage with drain placement.
- Colorectal consulted and placed consult to IR for possible drainage. No plan for surgery at this time unless patient's condition worsens.
- WBC count improving on antibiotics. No acute SCANNING COORDINATOR surgical intervention at this time. Patient will likely need co case with Set Up Machinist/Onc vs SCANNING COORDINATOR and colorectal as an outpatient.
45 minutes spent with patient, reviewing chart, documenting, and coordinating care.
[2024-02-24] MEDS: ATIVAN 0.5 MG IV (14:33)
[2024-02-24] MEDS: NSS (PRESERVATIVE FREE) 0.25 ML IV (14:34)
[2024-02-24 19:19] VITALS: BP 121/48
[2024-02-24] MEDS: LOPRESSOR PO (22:00)
[2024-02-24 23:53] VITALS: BP 143/59
[2024-02-25 03:23] VITALS: BP 161/65
[2024-02-25] MEDS: ZOSYN 50 IV ×4 (04:33→21:05)
[2024-02-25 06:00] VITALS: BMI 24.9
[2024-02-25 07:27] VITALS: BP 130/49
[2024-02-25] MEDS: LOPRESSOR 12.5 MG PO ×2 (07:54→21:06)
[2024-02-25] MEDS: PROZAC 20 MG PO (07:54)
[2024-02-25 09:27] LABS: % Basophils 0.6 % (0-2); % Eosinophils 0.8 % (0-6); % Immature Granulocytes 0.9 % (0-0.5); % Lymphocytes 9.4 % (20.5-51.1); % Monocytes 9.8 % (1.7-9.3); % Neutrophils 78.5 % (42.2-75.2); Absolute Basophils 0.1 10^3/uL (0-0.2); Absolute Eosinophils 0.1 10^3/uL (0-0.7); Absolute Immature Granulocytes 0.1 10^3/uL (0-0.05); Absolute Lymphocytes 1.1 10^3/uL (1.2-3.4); Absolute Monocytes 1.1 10^3/uL (0.1-0.6); Absolute Neutrophils 9.2 10^3/uL (1.4-6.5); Hematocrit 36.8 % (37.0-47.0); Hemoglobin 12.8 g/dL (12.0-16.0); Mean Corp Hgb Conc. 34.8 g/dL (33.0-37.0); Mean Corpuscular Hgb 31.3 pg (27.0-31.0); Mean Platelet Volume 11.5 fL (7.4-10.4); Nucleated Red Blood Cells % 0 %; Platelet Count 347 10^3/uL (130-400); Red Blood Cell Count 4.09 10^6/uL (4.20-5.40); White Blood Cell Count 11.7 10^3/uL (4.8-10.8)
--- NOTE | 2024-02-25 10:02 | W.PN.CRS1 ---
Today's Communication / Plan
-
IR drain
Assessment/Plan
-
Assessment: 78-year-old female with a history of a pelvic abscess November 2023 status post IR drainage, presents with left lower quadrant pain for the past 5 days and found to have recurrent 6.8 cm diverticular abscess in the left lower quadrant
posterior to the sigmoid colon
02/23- MRI pelvis - There is a 7.5 x 5.6 x 5.6 cm heterogeneous, multiloculated collection centered within the left adnexa, which abuts the sigmoid colon and likely represents large pericolonic/diverticular abscess. This abuts and potentially extends
into the posterior uterine fundus and body given the loss of normal fat plane.
Plan:
-IR drain today
-Continue IV antibiotics
-N.p.o. for interventional radiology
-No plans for emergent surgery at this time
-Will need VN for home after drain placed
-I updated her son Arpit via phone
-Will follow
Subjective Data
Subjective Data
Date of Service: February 25, 2024
Patient states she feels 'great'. She has no complaints at this time. She denies nausea or vomiting.
Objective Data
-
Vital Signs
Temp Pulse Resp BP Pulse Ox
98.5 F 61 20 130/49 97
02/25/24 07:27 02/25/24 07:27 02/25/24 07:27 02/25/24 07:27 02/25/24 07:27
Intake & Output
02/24/24 02/25/24 02/26/24
06:59 06:59 06:59
Intake Total 1490 / 1490
Balance 1490 / 1490
Intake:
Oral fluids 1440 / 1440
IV piggybacks 50 / 50
Other:
Number of approximated MODERATE 3 3
amounts of urine
Lab Results
02/25/24 09:08
Physical Exam
-
General: No Acute Distress and AOx3
Abdomen: Soft, Non Distended and Non Tender
Skin: Warm and Dry
[2024-02-25 10:49] LABS: Blood Urea Nitrogen 14 mg/dl (7-17); Calcium 9.1 mg/dl (8.4-10.2); Carbon Dioxide 27 mmol/L (22-30); Chloride 96 mmol/L (98-107); Estimated Creatinine Clearance 37 ml/min; Glucose 80 mg/dl (70-99); Potassium 4.6 mmol/L (3.5-5.1); Sodium 132 mmol/L (135-145); eGFR 56.95
--- NOTE | 2024-02-25 10:50 | W.PN.HOSP.TC ---
Addendum entered and electronically signed by Huseyin Mckenna MD 02/25/24 13:26:
Received message from interventional radiology unable to go for drainage for today. Discussed with colorectal okay for clear liquid diet for now. N.p.o. past midnight. Plan for procedure in the morning. Updated son about delay. Answered all
his questions.
Original Note:
Today's Communication/Plan
-
IV abx
IRAD drain
ID eval
Assessment / Plan
Assessment / Plan
A/P: Patient is an 78y F with PMH significant for HTN, A-Fib and CHF who presents to ED for evaluation of LLQ pain and increased WBC. s/p - MRI pelvis showing There is a 7.5 x 5.6 x 5.6 cm heterogeneous, multiloculated collection centered within
the left adnexa, which abuts the sigmoid colon and likely represents large pericolonic/diverticular abscess. This abuts and potentially extends into the posterior uterine fundus and body given the loss of normal fat plane.
Large pericolonic/diverticular abscess
- CT done in the ED on admission shows significant increase in size of fluid collection abscess.
- Empiric abx for now with Zosyn.
- MRI pelvis noted.
- IRAD for drainage today.
- Follow-up cultures, path results, etc from any samples - IR
- Appreciate CRS/MANAGER GOVERNMENT recs.
- ID eval for abx management.
Benign Hypertension
- Stable. Hold spironolactone and lisinopril acutely.
- Continue metoprolol with holding parameters.
Paroxysmal Atrial Fibrillation
- Stable. Continue metoprolol
- Hold Eliquis acutely drain placement
Chronic HFpEF
- Hold Lasix / spironolactone for now.
- Follow I/Os, daily weights, etc.
DVT Prophylaxis: SCDs and restart Eliquis post drain -pending IRAD clearance.
Code Status: Full
d/w with patient son at bedside in details on 02/23
Anticipated Discharge: > 48 hours
Subjective/Interval History
-
Date of Service: February 25, 2024
states remains with abd pain
Objective Data
-
Labs:
Laboratory Results
02/25/24
09:08
WBC 11.7 H
Hgb 12.8
Hct 36.8 L
Plt Count 347
Sodium 132 L
Potassium 4.6
Chloride 96 L
Carbon Dioxide 27
BUN 14
Creatinine 1.0
Glucose 80
Calcium 9.1
Vital Signs:
Vital Signs
Temp Pulse Resp BP Pulse Ox
98.5 F 61 20 130/49 97
02/25/24 07:27 02/25/24 07:27 02/25/24 07:27 02/25/24 07:27 02/25/24 07:27
I&O
02/24/24 02/25/24 02/26/24
06:59 06:59 06:59
Intake Total 1490 / 1490
Balance 1490 / 1490
Physical Exam
-
General: Well Developed and No Apparent Distress
HEENT: Normocephalic, Atraumatic and Moist Mucous Membranes
Respiratory: Clear to Auscultation
Cardiac: Regular Rhythm and S1/S2; Negative Murmur, Rub or Gallop
GI: Soft, Nondistended, Normal Bowel Sounds and Tender (LLQ); Negative Organomegaly
Rectal: Deferred by Provider
Musculoskeletal: No Clubbing, No Cyanosis and No Edema
Skin: Negative Rash
Neuro: Awake, Alert, Oriented, AO x 3, No Motor Deficits and Nonfocal/Grossly Intact
Psych: Calm
[2024-02-25] MEDS: TYLENOL 650 MG PO (11:03)
--- NOTE | 2024-02-25 11:24 | W.PN.UPDATE ---
Update Note
Progress Note Update
Patient without complaints. Son, Arpit present. Denies bleeding. Is waiting to go to IR for procedure.
Reviewed portion of MRI report relating to reproductive tract with patient. Endometrial echo now only 3 mm (normal). Patient aware studies indicated that abscess is diverticular (much more common in her age group then TOA). However, ultimately when
surgery done, will need SLEEVE SETTER SAFETY STITCH-assist as removal of ovaries/tubes and uterus maybe necessary depending on extent of disease. Patient and son have been told by GI surgery service that Dr Hanks will be asked to assist. All this to be planned after
discharge, unlikely that she will require surgery during this hospitalization.
Therefore, will sign off, can return if needed. Patient and Arpit aware/agree.
[2024-02-25 11:29] VITALS: BP 137/54
[2024-02-25] MEDS: VITAMIN D3 (cholecalciferol) 50 MCG PO (12:26)
[2024-02-25 15:06] VITALS: BP 112/61
--- NOTE | 2024-02-25 15:42 | PTCARENOTE ---
Patient noted to be in Afib with heart rate in 150s. Patient resting on bed. No symptoms. EKG done. Hospitalist made aware. Patient converted back to NSR without intervention.
--- NOTE | 2024-02-25 16:47 | CON.ID ---
Addendum entered and electronically signed by Alethea Enriquez MD 02/26/24 08:55:
I personally performed a history and physical exam of the patient and discussed management with the resident. I reviewed the resident's note and agree with the documented findings and plan of care HPI/CC with the following additions/corrections
CC: LLQ pain
HPI:
Ms Huggins is an 78 year old female with history of IBS who first presented here 12/11 for a 3 week history of LLQ pain for about 3 weeks she was found to have a left adnexal abscess, no colon inflammation, suspicious for hydrosalpinx, started on
vancomycin and Zosyn. Then, December 08, IR placed drain with 10 cc of green fluid sent for culture ultimately growing C koseri, K pneumoniae, and VGS. Pathology also sent and negative cytology for malignant cells. December 10, Ob-submarine cable equipment technician attempted
endometrial curettage (not completed due to inability to dilate cervix) but were successful with endometrial biopsy. Path was notbale for polyp but no other atypical cells. Genital culture negative for gonorrhoea grew usual robles, anaerobic culture
also sent and negative. She reports no sexual activity for the past 5 years. No history of diverticulitis. Transitioned to Unasyn. She was diagnosed with L TOA and repeat CT showed decreased size down to 1.9 cm, drain removed by IR. she was
discharged with augmentin 875 to complete 14 more days from 12/13 - 12/26 . Course was also complicated by NATHALY which resolved. Followed up with ob, outpatient tumor markers were negative by report. She was planned for MRI sigmoidoscopy and ex-lap
with
Since that time she reports intermittent LLQ pain but no fevers, chills, dysuria, vaginal bleeding, vaginal discharge, nausea, vomiting or diarrhea. Pain increased somewhat over the weekend. She saw her PCP who noted leukocytosis on outpatient
labs and referred her to the ER
Since arrival here this visit she has been afebrile, bp stable, wbc on 02/22 15.8 today 11.7, hgb 12.8, plt initially 419 now 347, no left shift on arrival today L shift with lympohcytopenia noted, cr initially 1.1 now 1.0, na 132, t bili 0.9, ast
26, alt 13, alk phos 74, lipase 393, 02/22 CT a/p with IV contrast: 'RECURRENT 6.8 cm DIVERTICULAR ABSCESS in the LEFT LOWER QUADRANT posterior to the sigmoid colon involving the left adnexa... Severe diverticulosis throughout the sigmoid colon...
Bilateral inflammatory sacroiliitis.' pelvis MRI with and without contrast: 'heterogeneous, loculated gas and fluid containing collection within the right lower quadrant which measures approximately 7.4 x 5.6 x 5.6 cm (series 701 image 14 and series
201 image 14) centered within the left adnexa which abuts the sigmoid colon as well as the posterior uterine body and fundus with loss of normal retrouterine fat' not colonized with c diff, she has been seen by colorectal surgery recommending
eventual, elective colonic resection and salpingo-oophorectomy. She is currently on zosyn.
Histories as reported by the resident
Home medications reviewed and notable for loperamide
12 ROS reviewed and as documented by resident
Physical Exam
Vital Signs
Vital Signs
Temp Pulse Resp BP Pulse Ox
98.3 F 74 19 134/76 98
02/23/24 18:21 02/23/24 20:51 02/23/24 20:51 02/23/24 21:00 02/23/24 21:15
Physical Exam
General: NAD
Respiratory: Clear bilaterally; No Wheezes, Rales or Rhonchi
Cardiac: S1/S2 and Regular Rhythm, No Murmur
GI: Soft, Non Tender, Non Distended, Normal Bowel Sounds, no tenderness, rebound or guarding
: no suprapubic tenderness
Musculoskeletal: No edema
Labs reviewed and notable findings under HPI
A&P:
Pelvic Abscess - suspect diverticular abscess with secondarily involved TOA
- for IR drainage today
- please send cultures aerobic and anaerobic from IR
- unlikely to be bacteremic, no indication for blood cultures at this time
- not previously colonized with C diff at this institution
- ekg in the AM
- drain management per surgery
- agree with zosyn for the moment, note previous courses of zosyn/unasyn/augmentin
- appreciate colorectal and Ob input
AW
Original Note:
Consultation
-
Date/Time Consultation Requested: 02/25/24, 10:49am
Date/Time Consultation Performed: 02/25/24, 12pm
Requesting Provider: Huseyin Mckenna MD
Performing Provider: Denisha Jason for Alethea Calvert MD
Reason for Consultation: pelvic abscess
Chief Complaint / Past History
Chief Complaint
Lower abdominal pressure and discomfort X 2 weeks
History of Present Illness
Patient is an 78-year-old female with hospitalization for a pelvic abscess 3 months ago who presents to ER for evaluation of lower abdominal pressure and discomfort x 2 weeks. Her lower abdominal pressure and discomfort started few weeks ago,
initially it was only about 3-5/10 in intensity, over the last 2 weeks it progressively worsened and went up to 8/10. Her lower abdominal pressure and discomfort is not associated with fevers, chills, nausea, vomiting, diarrhea, dysuria or
frequency, vaginal discharge, shortness of breath, palpitations, change in appetite, weight loss.
During her last hospital admission she was diagnosed with left lower quadrant pelvic abscess, and underwent IR drainage, her cultures grew positive for Citrobacter and Klebsiella. Patient was treated with Unasyn and Augmentin during her last
hospitalization after the cultures were resulted. She was sent home on Augmentin and the drain, and was eventually followed by Dr. Guaman for pelvic abscess. Patient also underwent endometrial biopsy and pelvic exam under anesthesia but
endometrial biopsy was difficult due to her cervical stenosis and vaginal atrophy. She last saw Dr. Guaman about 2 weeks ago and was tentatively scheduled to get an MRI, sigmoidoscopy and an exploratory laparotomy with resection. However due to
her worsening abdominal pain, she saw her primary care on Thursday who recommended blood work which turned out to be positive for leukocytosis. Patient was suggested by her primary care to go to the emergency room for evaluation of her recurrent
pelvic abscess.
Upon admission to the hospital on 02/23/2024, patient was afebrile, and her vital signs were stable. WBC count-15.9 with left shift noted, reactive thrombocytosis noted, renal function-serum creatinine 1.1, BUN-33. Patient was evaluated for pelvic
abscess with a CT abdomen that showed evidence for diverticular abscess of the sigmoid colon with questionable involvement of left adnexa. Surgery and gynecology were consulted. Gynecology ordered an MRI for further evaluation of the abscess.
Patient is planned to get a drain placed by interventional radiology in the p.m. today.
Eventual plan by gynecology and colorectal surgery is to perform colon resection and total hysterectomy.
Past History
Past Medical History: Other (Hypertension, HFpEF, paroxysmal A-fib, complicated diverticulitis, recurrent pelvic abscess, CKD stage IIIa, glaucoma)
Past Surgical History: Other (Cholecystectomy, left pelvic abscess drainage, endometrial biopsy.)
Allergy History:
amlodipine Allergy (Unknown, Verified 02/23/24 18:24)
Unknown
lisinopril Allergy (Verified 02/23/24 18:24)
abdominal cramping
unknown drug Allergy (Uncoded 02/23/24 18:24)
Unknown
Medications Reviewed: Yes
Current Antibiotics:
Zosyn.
Social History
Tobacco: Former Smoker (15 pack years of smoking history, quit smoking more than 20 years ago.)
Alcohol: Occasional
Drug: None
Personal: Partner
Living: Other (Living with her partner for 35 years.)
Employment: Retired
Family History
Family History: Not Pertinent
Review of Systems
Review of Systems
General: Negative Fever, Chills or Change in Appetite
Cardiovascular: Negative Chest Pain, Dyspnea or Palpitations
Respiratory: Negative Cough
Gasteroenterology: Other (Lower abdominal pressure and pain present.); Negative Weight Loss, Nausea or Vomiting
Genital / Urological: Negative Dysuria, Hematuria or Flank Pain
Endocrine: Negative Weight Change or Fatigue
Musculoskeletal: Negative Joint Pain
Neurological: Negative Headache
Vital Signs
Temp Pulse Resp BP Pulse Ox
98.1 F 69 20 112/61 97
02/25/24 15:06 02/25/24 15:06 02/25/24 15:06 02/25/24 15:06 02/25/24 16:22
Physical Exam
Physical Exam
Constitutional: Comfortable
Cardiovascular: Regular Rate and S1/S2; Negative Murmur, Rub or Gallop
Pulmonary: Clear; Negative Wheezes, Rales or Rhonchi
Gastrointestinal: Soft, Tender (Deep palpation in the left lower quadrant and right lower quadrant.), Non Distended, Normal Bowel Sounds and No Guarding
Genito-Urinary: Negative Suprapubic Tenderness
Extremities: Edema (1+ pitting edema in bilateral lower extremities.)
Skin: Warm
Psychological: Calm
Lab / Diagnostic Study Results
02/25/24 09:08
02/25/24 09:08
Abs Immat Gran (auto) 0.1 10^3/uL (0-0.05) H 02/25/24 09:08
Absolute Neuts (auto) 9.2 10^3/uL (1.4-6.5) H 02/25/24 09:08
Absolute Lymphs (auto) 1.1 10^3/uL (1.2-3.4) L 02/25/24 09:08
Absolute Monos (auto) 1.1 10^3/uL (0.1-0.6) H 02/25/24 09:08
Absolute Basos (auto) 0.1 10^3/uL (0-0.2) 02/25/24 09:08
Immature Gran % 0.9 % (0-0.5) H 02/25/24 09:08
Neutrophils % 78.5 % (42.2-75.2) H 02/25/24 09:08
Lymphocytes % 9.4 % (20.5-51.1) L 02/25/24 09:08
Monocytes % 9.8 % (1.7-9.3) H 02/25/24 09:08
Eosinophils % 0.8 % (0-6) 02/25/24 09:08
Basophils % 0.6 % (0-2) 02/25/24 09:08
Microbiology Results
Micro:
Previous abscess drainage in November 2023-cultures positive for Citrobacter koseri, Klebsiella pneumonia, viridans group streptococci.
MRI pelvis-02/24/2024-
There is a 7.5 x 5.6 x 5.6 cm heterogeneous, multiloculated collection centered within the left adnexa, which abuts the sigmoid colon and likely represents large pericolonic/diverticular abscess. This abuts and potentially extends into the posterior
uterine fundus and body given the loss of normal fat plane.
Extensive colonic diverticulosis.
CT abdomen pelvis-02/23/2024-
1. RECURRENT 6.8 X 5.7 X 5.2 cm cm DIVERTICULAR ABSCESS in the LEFT LOWER QUADRANT posterior to the sigmoid colon involving the left adnexa.
2. Severe diverticulosis throughout the sigmoid colon.
3. Severe calcific atherosclerotic plaque in the abdominal aorta and iliac arteries.
4. Mild splenomegaly.
5. Moderate chronic bilateral renal disease.
6. Mild biliary dilatation secondary to previous cholecystectomy.
7. 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
8. Bilateral inflammatory sacroiliitis.
Assessment / Plan
Assessment-
Subjective data-lower abdominal pressure and pain.
Objective data- Vital signs stable (afebrile, no hypotension, tachycardia, tachypnea). WBC count-15.9 upon admission, 11.7 on 02/24. Left shift improving. Renal function stable.
CT abdomen/pelvis and MRI abdomen/pelvis evidence of for large pelvic abscess.
Recurrent pelvic abscess.
Was treated with IV Unasyn and oral Augmentin for 14 days.
Plan-
Patient does not meet sepsis criteria, or is at risk for bacteremia. Hence no need for blood cultures.
IR to drain pelvic abscess in the p.m. today.
I recommend cultures of the drain within 24 hours.
Currently patient is on Zosyn. Will tailor antibiotics based on drain culture results.
ID will continue to follow the patient closely.
--- NOTE | 2024-02-25 17:48 | CM ---
Regla was previously hospitalized for an abscess and was discharged from to home with no needs at her request. Critical access hospital was engaged after discharge when Regla realized she may need some help.
Regla lives with her long time partner in a 2 story home with 12 entry steps from the garage. She has been (I) amb and adl's prior to hospitalization and anticipates returning home (I), although she is to have surgery for a new abscess and may
again need services.
Regla's son stayed at the hospital most days, very supportive.
Plan: CM to follow to watch for VN needs vs. home with no needs
PCP: Prince Maldonado
PHARM: [facility] in [place]
[2024-02-25 19:47] VITALS: BP 136/56
[2024-02-25] MEDS: XALATAN OPHTHALMIC SOLUTION 1 DROP BOTH EYES (21:05)
[2024-02-25 23:25] VITALS: BP 123/47
[2024-02-26] VITALS (8 sets, daily range): BP systolic 51–154; BP diastolic 35–76; BMI 24.9
[2024-02-26] MEDS: ZOSYN 50 IV ×4 (04:45→21:32)
[2024-02-26 08:43] LABS: % Basophils 0.5 % (0-2); % Eosinophils 0.2 % (0-6); % Immature Granulocytes 1.1 % (0-0.5); % Lymphocytes 7.1 % (20.5-51.1); % Monocytes 10.3 % (1.7-9.3); % Neutrophils 80.8 % (42.2-75.2); Absolute Basophils 0.1 10^3/uL (0-0.2); Absolute Immature Granulocytes 0.2 10^3/uL (0-0.05); Absolute Lymphocytes 1.2 10^3/uL (1.2-3.4); Absolute Monocytes 1.8 10^3/uL (0.1-0.6); Absolute Neutrophils 13.8 10^3/uL (1.4-6.5); Hematocrit 37.8 % (37.0-47.0); Hemoglobin 12.8 g/dL (12.0-16.0); Mean Corp Hgb Conc. 33.9 g/dL (33.0-37.0); Mean Corpuscular Hgb 30.4 pg (27.0-31.0); Mean Corpuscular Volume 89.8 fL (81.0-99.0); Mean Platelet Volume 11.5 fL (7.4-10.4); Nucleated Red Blood Cells % 0 %; Platelet Count 423 10^3/uL (130-400); Red Blood Cell Count 4.21 10^6/uL (4.20-5.40); Red Cell Dist. Width 13.2 % (11.5-14.5); White Blood Cell Count 17.1 10^3/uL (4.8-10.8)
[2024-02-26] MEDS: VISBIOME 1 CAP PO (08:56)
[2024-02-26] MEDS: LOPRESSOR 12.5 MG PO ×2 (08:57→20:08)
[2024-02-26] MEDS: PROZAC 20 MG PO (08:57)
[2024-02-26] MEDS: VITAMIN D3 (cholecalciferol) 50 MCG PO (08:57)
[2024-02-26 08:58] LABS: Blood Urea Nitrogen 13 mg/dl (7-17); Calcium 9.2 mg/dl (8.4-10.2); Carbon Dioxide 24 mmol/L (22-30); Chloride 94 mmol/L (98-107); Estimated Creatinine Clearance 34 ml/min; Glucose 90 mg/dl (70-99); Potassium 4.5 mmol/L (3.5-5.1); Sodium 132 mmol/L (135-145)
--- NOTE | 2024-02-26 09:55 | W.PN.CRS1 ---
Today's Communication / Plan
-
IR drain
Assessment/Plan
-
Assessment: 78-year-old female with a history of a pelvic abscess November 2023 status post IR drainage, presents with left lower quadrant pain for the past 5 days and found to have recurrent 6.8 cm diverticular abscess in the left lower quadrant
posterior to the sigmoid colon
02/23- MRI pelvis - There is a 7.5 x 5.6 x 5.6 cm heterogeneous, multiloculated collection centered within the left adnexa, which abuts the sigmoid colon and likely represents large pericolonic/diverticular abscess. This abuts and potentially extends
into the posterior uterine fundus and body given the loss of normal fat plane.
Plan:
-IR drain today
-Continue IV antibiotics
-N.p.o. for interventional radiology
-No plans for emergent surgery at this time
-Will need VN for home after drain placed
-Will follow
Subjective Data
Subjective Data
Date of Service: February 26, 2024
Patient states she had a rough night. She has a lot of diarrhea from the antibiotics. She has no abdominal pain. She has no further complaints.
Objective Data
-
Vital Signs
Temp Pulse Resp BP Pulse Ox
98.0 F 60 18 135/57 99
02/26/24 07:00 02/26/24 07:00 02/26/24 07:00 02/26/24 07:00 02/26/24 07:00
Intake & Output
02/25/24 02/26/24 02/27/24
06:59 06:59 06:59
Intake Total 1490 / 1490 440 / 440
Balance 1490 / 1490 440 / 440
Intake:
Oral fluids 1440 / 1440 340 / 340
IV piggybacks 50 / 50 100 / 100
Other:
Number of approximated MODERATE 3 4
amounts of urine
Lab Results
02/26/24 07:03
02/26/24 07:03
Physical Exam
-
General: No Acute Distress and AOx3
Abdomen: Soft, Non Distended and Non Tender
Skin: Warm and Dry
--- NOTE | 2024-02-26 10:22 | W.PN.ID1 ---
Addendum entered and electronically signed by Alethea Enriquez MD 02/26/24 18:02:
I saw and evaluated the patient. I reviewed the resident�s note and agree with findings and plan as documented in the resident�s note with the following additions/corrections:
SOAP:
afebrile overnight, rigors this afternoon post aspiration
IR comments that fluid collection much smaller
no events overnight
O:
VSS
Physical Exam
General: NAD
Respiratory: Clear bilaterally; No Wheezes, Rales or Rhonchi
Cardiac: S1/S2 and Regular Rhythm, No Murmur
GI: Soft, moderate tender in the BL lower quadrants, Non Distended, Normal Bowel Sounds, no tenderness, rebound or guarding
: no suprapubic tenderness
Musculoskeletal: No edema
Labs reviewed most notable:
wbc 17
plt 423
increased L shift
cr 1.1
A&P:
Pelvic Abscess - suspect diverticular abscess with secondarily involved TOA
- for IR drainage today
- cultures aerobic and anaerobic sent IR
- blood cultures x2 as having rigors
- not previously colonized with C diff at this institution
- qtc acceptable
- agree with zosyn for the moment, note previous courses of zosyn/unasyn/augmentin
- added micafungin
- appreciate colorectal and Ob input
AW
Original Note:
Date of Service
Date of Service: February 26, 2024
Today's Communication
Continue Zosyn.
Awaiting wound cultures.
Assessment / Plan
Assessment-
Subjective data-lower abdominal pressure and pain.
Objective data- Vital signs stable (afebrile, no hypotension, tachycardia, tachypnea). WBC count-15.9 upon admission, 11.7 on 02/24, at 17.1 today. SIRS criteria not met. Left shift improving. Renal function stable.
CT abdomen/pelvis and MRI abdomen/pelvis evidence of for large pelvic abscess.
Recurrent pelvic abscess.
Was treated with IV Unasyn and oral Augmentin for 14 days.
Plan-
Patient does not meet sepsis criteria, or is at risk for bacteremia. Incase patient meets SIRS criteria, will consider getting blood culture results.
IR to drain pelvic abscess in the p.m. today. Cultures received, pending aerobic and anaerobic cultures.
Currently patient is on Zosyn. Will tailor antibiotics based on drain culture results.
ID will continue to follow the patient closely.
Chief Complaint
-: Other (lower abdominal pressure x 2 weeks.)
Subjective / Review of Systems
Review of Systems: No Fever, No Chills, No Headache, No Pharyngitis, No Chest Pain, No Palpitations, No Nausea, No Dysuria and No Joint Pain
Vital Signs / Physical Exam
Vital Signs
Vital Signs
Temp Pulse Resp BP Pulse Ox
98.0 F 60 18 135/57 99
02/26/24 07:00 02/26/24 07:00 02/26/24 07:00 02/26/24 07:00 02/26/24 07:00
Physical Exam
Constitutional: Comfortable
Cardiovascular: Regular Rate and S1/S2; Negative Murmur, Rub or Gallop
Pulmonary: Clear; Negative Wheezes, Rales or Rhonchi
Gastrointestinal: Soft, Tender (mild tenderness in the LLQ), Non Distended and Normal Bowel Sounds
Extremities: Edema (1 + pitting edema)
Skin: Warm
Neurological: AO x 3
Objective Data
Lab Data
Lab Results
02/26/24 07:03
02/26/24 07:03
Estimated Creat Clear 34 ml/min 02/26/24 07:03
Total Bilirubin 0.9 mg/dl (0.2-1.3) 02/23/24 18:28
AST 26 U/L (14-36) 02/23/24 18:28
ALT 13 U/L (0-35) 02/23/24 18:28
Alkaline Phosphatase 74 U/L (38-126) 02/23/24 18:28
Most recent labs reviewed.
Microbiology: Report Reviewed and Discussed w/ Micro
MRI pelvis-02/24/2024-
There is a 7.5 x 5.6 x 5.6 cm heterogeneous, multiloculated collection centered within the left adnexa, which abuts the sigmoid colon and likely represents large pericolonic/diverticular abscess. This abuts and potentially extends into the posterior
uterine fundus and body given the loss of normal fat plane.
Extensive colonic diverticulosis.
CT abdomen pelvis-02/23/2024-
1. RECURRENT 6.8 X 5.7 X 5.2 cm cm DIVERTICULAR ABSCESS in the LEFT LOWER QUADRANT posterior to the sigmoid colon involving the left adnexa.
2. Severe diverticulosis throughout the sigmoid colon.
3. Severe calcific atherosclerotic plaque in the abdominal aorta and iliac arteries.
4. Mild splenomegaly.
5. Moderate chronic bilateral renal disease.
6. Mild biliary dilatation secondary to previous cholecystectomy.
7. 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
8. Bilateral inflammatory sacroiliitis.
--- NOTE | 2024-02-26 11:27 | W.PN.HOSP.TC ---
Today's Communication/Plan
-
IRAD drain placement
IV abx
Assessment / Plan
Assessment / Plan
A/P: Patient is an 78y F with PMH significant for HTN, A-Fib and CHF who presents to ED for evaluation of LLQ pain and increased WBC. s/p - MRI pelvis showing There is a 7.5 x 5.6 x 5.6 cm heterogeneous, multiloculated collection centered within
the left adnexa, which abuts the sigmoid colon and likely represents large pericolonic/diverticular abscess. This abuts and potentially extends into the posterior uterine fundus and body given the loss of normal fat plane.
Large pericolonic/diverticular abscess
- CT done in the ED on admission shows significant increase in size of fluid collection abscess.
- Empiric abx for now with Zosyn.
- MRI pelvis noted.
- IRAD for drainage today.
- Follow-up cultures, path results, etc from any samples - IR
- Appreciate CRS/ recs
- BRICK WHEELER signed off-Op f/u
- ID eval for abx management.
Benign Hypertension
- Stable. Hold spironolactone and lisinopril acutely.
- Continue metoprolol with holding parameters.
Loose stoos likely 2/2 abx
-multiple episode and reasonable to check Cdiff
-if negative start imodium
Paroxysmal Atrial Fibrillation
- Stable. Continue metoprolol
- Hold Eliquis acutely drain placement
Chronic HFpEF
- Hold Lasix / spironolactone for now.
- Follow I/Os, daily weights, etc.
DVT Prophylaxis: SCDs and restart Eliquis post drain -pending IRAD clearance.
Code Status: Full
d/w with patient son at bedside in details on 02/25
Anticipated Discharge: > 48 hours
Subjective/Interval History
-
Date of Service: February 26, 2024
Increasing amount of loose stools
remains with abd pain
Objective Data
-
Labs:
Laboratory Results
02/26/24
07:03
WBC 17.1 H
Hgb 12.8
Hct 37.8
Plt Count 423 H D
Sodium 132 L
Potassium 4.5
Chloride 94 L
Carbon Dioxide 24
BUN 13
Creatinine 1.1 H
Glucose 90
Calcium 9.2
Vital Signs:
Vital Signs
Temp Pulse Resp BP Pulse Ox
98.0 F 60 18 135/57 99
02/26/24 07:00 02/26/24 07:00 02/26/24 07:00 02/26/24 07:00 02/26/24 07:00
I&O
02/25/24 02/26/24 02/27/24
06:59 06:59 06:59
Intake Total 1490 / 1490 440 / 440
Balance 1490 / 1490 440 / 440
Physical Exam
-
General: Well Developed and No Apparent Distress
HEENT: Normocephalic, Atraumatic and Moist Mucous Membranes
Respiratory: Clear to Auscultation
Cardiac: Regular Rhythm and S1/S2; Negative Murmur, Rub or Gallop
GI: Soft, Nondistended, Normal Bowel Sounds and Tender (LLQ); Negative Organomegaly
Rectal: Deferred by Provider
Musculoskeletal: No Clubbing, No Cyanosis and No Edema
Skin: Negative Rash
Neuro: Awake, Alert, Oriented, AO x 3, No Motor Deficits and Nonfocal/Grossly Intact
Psych: Calm
[2024-02-26] MEDS: IMODIUM 4 MG PO (13:46)
--- NOTE | 2024-02-26 15:51 | CM ---
CM reviewed chart, patient for IRAD for drain placement. Patient remains on IV antibiotics. CM will continue to follow for all discharge planning needs. Referral sent to [facility].
Plan; home with [facility] when stable.
[2024-02-26] MEDS: TYLENOL 650 MG PO (16:38)
--- NOTE | 2024-02-26 16:47 | PTCARENOTE ---
Pt developed rigors, chills with a fever of 100.4. MD made aware, Tylenol given per orders, no c/o pain, puncture site to abd from abscess drain CDI, 96% on RA.Daughter at bedside updated on POC, call parrish within reach, plan of care continues.
--- NOTE | 2024-02-26 16:50 | W.PN.UPDATE ---
Update Note
Progress Note Update
- Attempt of CT guided aspiration of L ovarian abscess performed earlier today
- Compared to CT from several days ago, amount of fluid within the ovary significantly decreased, now contained scattered locules of gas
- 19 gauge needle advanced into these locules of gas but no fluid or pus able to be aspirated
- Subsequently redirected needle into more simple appearing fluid felt to represent hydrosalpinx. Aspirated fluid was serous in nature, no purulence. 10 mL removed. No drain placed.
--- NOTE | 2024-02-26 17:30 | PTCARENOTE ---
ID MD made aware of fevers/rigors/chills, blood cultures ordered.
[2024-02-26] MEDS: MYCAMINE 105 MG IV (20:03)
[2024-02-26] MEDS: XALATAN OPHTHALMIC SOLUTION 1 DROP BOTH EYES (21:33)
[2024-02-27] VITALS (8 sets, daily range): BP systolic 105–134; BP diastolic 40–65; PULSE 61; O2SAT 96; BMI 24.3
[2024-02-27] MEDS: ZOSYN 50 IV ×4 (03:38→22:13)
[2024-02-27] MEDS: IMODIUM 2 MG PO (04:28)
[2024-02-27 06:54] LABS: % Basophils 0.5 % (0-2); % Eosinophils 0.4 % (0-6); % Lymphocytes 5.4 % (20.5-51.1); % Monocytes 7.1 % (1.7-9.3); % Neutrophils 85.6 % (42.2-75.2); Absolute Basophils 0.1 10^3/uL (0-0.2); Absolute Eosinophils 0.1 10^3/uL (0-0.7); Absolute Immature Granulocytes 0.2 10^3/uL (0-0.05); Absolute Monocytes 1.3 10^3/uL (0.1-0.6); Absolute Neutrophils 16.1 10^3/uL (1.4-6.5); Hematocrit 36.4 % (37.0-47.0); Hemoglobin 12.6 g/dL (12.0-16.0); Mean Corp Hgb Conc. 34.6 g/dL (33.0-37.0); Mean Corpuscular Hgb 31.1 pg (27.0-31.0); Mean Corpuscular Volume 89.9 fL (81.0-99.0); Mean Platelet Volume 11.6 fL (7.4-10.4); Nucleated Red Blood Cells % 0 %; Platelet Count 356 10^3/uL (130-400); Red Blood Cell Count 4.05 10^6/uL (4.20-5.40); Red Cell Dist. Width 13.2 % (11.5-14.5); White Blood Cell Count 18.8 10^3/uL (4.8-10.8)
[2024-02-27 07:43] LABS: Blood Urea Nitrogen 16 mg/dl (7-17); Carbon Dioxide 23 mmol/L (22-30); Chloride 94 mmol/L (98-107); Estimated Creatinine Clearance 31 ml/min; Glucose 82 mg/dl (70-99); Potassium 4.1 mmol/L (3.5-5.1); Sodium 132 mmol/L (135-145); eGFR 45.76
[2024-02-27] MEDS: VISBIOME 2 CAP PO (09:26)
[2024-02-27] MEDS: PROZAC 20 MG PO (09:26)
[2024-02-27] MEDS: LOPRESSOR PO ×2 (09:27→20:48)
[2024-02-27] MEDS: TIMOPTIC 0.5% OPHTHALMIC SOLUTION 1 DROP BOTH EYES ×2 (09:27→20:49)
[2024-02-27] MEDS: FLUSH (NSS) 1 FLUSH IV ×3 (09:31→17:29)
--- NOTE | 2024-02-27 10:02 | W.PN.HOSP.TC ---
Today's Communication/Plan
-
Diet per surgery
IV abx/anti-fungal
OOB/PT eval
monitor HR
await culture data
Assessment / Plan
Assessment / Plan
A/P: Patient is an 78y F with PMH significant for HTN, A-Fib and CHF who presents to ED for evaluation of LLQ pain and increased WBC. s/p - MRI pelvis showing There is a 7.5 x 5.6 x 5.6 cm heterogeneous, multiloculated collection centered within
the left adnexa, which abuts the sigmoid colon and likely represents large pericolonic/diverticular abscess. This abuts and potentially extends into the posterior uterine fundus and body given the loss of normal fat plane.
Large pericolonic/diverticular abscess/ovarian
- CT done in the ED on admission shows significant increase in size of fluid collection abscess.
- Cont with Zosyn. Micafungin added. Bump in WBC. Blood cultures in lab.
- MRI pelvis noted.
- IRAD attempted aspiration of left ovarian abscess -serosanguineous fluid noted. No purulence noted. No drain was placed.
- Follow-up cultures, culture results from [facility]
- Appreciate CRS/ recs
- [employer] HELPER signed off-Op f/u
- ID eval for abx management.
Benign Hypertension
- Stable. Hold spironolactone and lisinopril acutely.
- Continue metoprolol with holding parameters.
Loose stools likely 2/2 abx
-cdiff negative.
-s/p dose of imodium
Paroxysmal Atrial Fibrillation
- With mild bradycardia while at rest. No pauses noted on tele. Monitor heart rate with activity. Continue metoprolol with hold parameters added.
- Restart Eliquis if no plan for surgical intervention
Chronic HFpEF
- Hold Lasix / spironolactone for now.
- Follow I/Os, daily weights, etc.
CKD3a
-trend cr for now. cr at baseline
DVT Prophylaxis: scds
Code Status: Full
d/w with patient son at bedside in details on 02/25
PT eval
Anticipated Discharge: > 48 hours
Subjective/Interval History
-
Date of Service: February 27, 2024
states feeling hungry
improvement in abd pain/discomfort
Objective Data
-
Labs:
Laboratory Results
02/27/24
06:11
WBC 18.8 H
Hgb 12.6
Hct 36.4 L
Plt Count 356
Sodium 132 L
Potassium 4.1
Chloride 94 L
Carbon Dioxide 23
BUN 16
Creatinine 1.2 H
Glucose 82
Calcium 9.0
Vital Signs:
Vital Signs
Temp Pulse Resp BP Pulse Ox
97.8 F 51 20 106/40 98
02/27/24 07:36 02/27/24 09:27 02/27/24 07:36 02/27/24 09:27 02/27/24 09:20
I&O
02/26/24 02/27/24 02/28/24
06:59 06:59 06:59
Intake Total 440 / 440 300 / 300
Balance 440 / 440 300 / 300
Physical Exam
-
General: Well Developed and No Apparent Distress
HEENT: Normocephalic, Atraumatic and Moist Mucous Membranes
Respiratory: Clear to Auscultation
Cardiac: S1/S2, Irregular Rhythm and Bradycardic; Negative Murmur, Rub or Gallop
GI: Soft, Nontender, Nondistended and Normal Bowel Sounds; Negative Organomegaly
Rectal: Deferred by Provider
Musculoskeletal: No Clubbing, No Cyanosis and No Edema
Skin: Negative Rash
Neuro: Awake, Alert, Oriented, AO x 3, No Motor Deficits and Nonfocal/Grossly Intact
Psych: Calm
Data Reviewed
-
Total Time Spent with Patient (in minutes): 56
--- NOTE | 2024-02-27 11:00 | W.PN.CRS1 ---
Today's Communication / Plan
-
will reach out to ID/die repair/hospitalist regarding case
tentatively posted to OR tomorrow
Assessment/Plan
-
Assessment: 78-year-old female with a history of a pelvic abscess November 2023 status post IR drainage, presents with left lower quadrant pain for the past 5 days and found to have recurrent 6.8 cm diverticular abscess in the left lower quadrant
posterior to the sigmoid colon
02/23- MRI pelvis - There is a 7.5 x 5.6 x 5.6 cm heterogeneous, multiloculated collection centered within the left adnexa, which abuts the sigmoid colon and likely represents large pericolonic/diverticular abscess. This abuts and potentially extends
into the posterior uterine fundus and body given the loss of normal fat plane.
02/25- attempt at left ovarian abscess, unable to place drain, fluid aspirated was clear
VS: tmax 100.4. WBC 18.8 (17.1)
Plan:
-Discussed at length with Dr. Padgett. Unclear if abscess is die repair vs colon in origin.
-Continue IV antibiotics
-Fluid cultures pending
-Will tentatively post for OR tomorrow for a sigmoidectomy with possible colostomy creation should her WBC continue to rise
-Plan to reach out to ID/die repair/hospitalist to discuss case
-NPO at midnight
Subjective Data
Subjective Data
Date of Service: February 27, 2024
Patient states she has no pain. When she originally was admitted, her pain was a 8/10, now it is 0/10. She is very hungry. She still has loose stools.
Objective Data
-
Vital Signs
Temp Pulse Resp BP Pulse Ox
97.8 F 51 20 106/40 98
02/27/24 07:36 02/27/24 09:27 02/27/24 07:36 02/27/24 09:27 02/27/24 09:20
Intake & Output
02/26/24 02/27/24 02/28/24
06:59 06:59 06:59
Intake Total 440 / 440 300 / 300
Balance 440 / 440 300 / 300
Intake:
Oral fluids 340 / 340
IV fluids (Total) 100 / 100
NSS 100 / 100
IV piggybacks 100 / 100 200 / 200
Other:
Number of approximated MODERATE 4 2
amounts of urine
Number of unmeasured liquid
stools
Rectum 2
Lab Results
02/27/24 06:11
02/27/24 06:11
Physical Exam
-
General: No Acute Distress and AOx3
Abdomen: Soft, Non Distended and Non Tender
Skin: Warm and Dry
--- NOTE | 2024-02-27 14:02 | W.CON.GYNONC ---
Consultation
-
Date/Time Consultation Requested: 02/27/2024
Date/Time Consultation Performed: 02/27/2024
Requesting Provider: Clarisa vo
Performing Provider: Roberth Hanks
Reason for Consultation: Pelvic Abcess
Chief Complaint
-
LLQ pain
History of Present Illness
This is an 78yo WF menopausal since age 48 who does not usually see civil engineering professor with a history of a TOA vs diverticular abscess starting back in November , she was sent to the ED after an elevated white count on outpatient labs. Patient was admitted in
November for a similar abscess. At that time, it was thought to be a TOA. It was drained by IR and grew Citrobacter, Klebsiella and S. viridans grew from the abscess. Patient completed 2 weeks of Augmentin on discharge. There were no malignant cells on
cytology from the abscess.
Bank Operations Officer evaluation by Dr Eldridge done at that time, She also had a thickened endometrium on pelvic US. D&C was attempted, but only EMB was completed secondary to cervical stenosis. Pathology showed fragments of endocervical polyp and fragments of mucus,
endocervical glands and squamous epithelium with atrophy but no endometrial tissue. Note she has no post menopausal bleeding, and no discharge.
Patient followed up with PLUMBING TECHNICIAN and a consult with colorectal. Surgical removal had been considered, I had been contacted by Dr. Chaparro
She reports that that since the weekend she has noticed an increase in her left lower quadrant pain. The pain improves with Tylenol. She denies postmenopausal bleeding. While in the hospital she has had some chills and rigors associated with a
fever last night. An aspiration was performed yesterday by interventional radiology but the drain was not placed as the fluid was serous and not suspicious for abscess.
She had a colonoscopy a year ago at [facility] which was normal.
She does report intermittent diarrhea over the last month however this is attributed to antibiotics.
She did have a bowel movement yesterday. She states that her pain is improved since arriving at the hospital and specially after the aspiration yesterday
PMHx: Hypertension, HFpEF, Paroxysmal Atrial Fibrillation, CKD IIIa, Glaucoma
PSHx: cholecystectomy
POBHx: x2
FamHx: Mother with breast cancer
SHx: former smoker, quit. She drinks alcohol rarely socially. She denies any drug or marijuana use. She is with the partner for the last 35 years
Meds:
All: NKDA
Medical History
Past Medical History
Past Medical History: Reports HTN
Additional Past Medical History:
Hypertension
HFpEF
Paroxysmal Atrial Fibrillation
CKD IIIa
Glaucoma
Past Surgical History: Reports Cholecystectomy
Social History
Tobacco: Former Smoker
Alcohol: Occasional
Drug: None
Personal: Partner
Employment: Retired
Family History
Family History: Reviewed & Not Pertinent
Allergies
Allergies reflect when allergies were last updated in [facility].
amlodipine Allergy (Verified 02/26/24 16:44)
Unknown
lisinopril Allergy (Verified 02/23/24 18:24)
abdominal cramping
unknown drug Allergy (Uncoded 02/23/24 18:24)
Unknown
Review of Systems
-
A 12 point Review of Systems was completed except as noted: Yes
Constitutional: Reports No Symptoms
EENT: Reports No Symptoms
Respiratory: Reports No Symptoms
Cardiac: Reports No Symptoms
Abdomen/GI: Reports Abdominal Pain (LLQ)
: Reports No Symptoms
Musculoskeletal: Reports No Symptoms
Skin: Reports No Symptoms
Neurological: Reports No Symptoms
Endocrine: Reports No Symptoms
Hematologic/Lymphatic: Reports No Symptoms
Psych: Reports No Symptoms
Physical Exam
Vital Signs / I&O
Vitals
Temp Pulse Resp BP Pulse Ox
97.9 F 56 20 109/48 97
02/27/24 11:35 02/27/24 11:35 02/27/24 11:35 02/27/24 11:35 02/27/24 11:35
I&O
02/25/24 02/26/24 02/27/24 02/28/24
06:59 06:59 06:59 06:59
Intake Total 1490 / 1490 440 / 440 300 / 300
Balance 1490 / 1490 440 / 440 300 / 300
Physical Exam
General: Well Developed, Well Nourished and No Apparent Distress
HEENT: Normocephalic
Respiratory: Clear and Non Labored Respirations
Cardiac: S1/S2 and Regular Rhythm
GI: Soft, Non Tender, Non Distended and Normal Bowel Sounds
External Genitalia: Normal Labia
Vagina: Normal Mucosa
Cervix: Normal
Uterus: Normal
Adnexa: Abnormal and Other (Bimanual and rectovaginal examination reveals a 5 to 6 cm mass filling the posterior cul-de-sac which is extremely tender to palpation)
Rectal: Normal Mucosa and Other (Palpable mass anterior to the rectum, tender to palpation see above)
Neuro: Awake and Alert
Hematologic/Lymphatic: No Lymphadenopathy
Psych: Calm and Intact Judgement
Results
-
02/27/24 06:11
02/27/24 06:11
Exams: MR Pelvis W/o & With Contrast
CPT: [id number]
PROCEDURE: MR Pelvis W/o  With Contrast
CLINICAL INDICATION: Diverticular abscess versus TOA.
TECHNIQUE: An MRI examination of the pelvis was performed with and without intravenous contrast on a 1.5 Natalee magnet. Sagittal T2 fat-suppressed, axial T1, axial T1 fat-suppressed, axial T2 fat-suppressed, coronal T2 fat-suppressed, and coronal T2
weighted imaging sequences were obtained prior to the administration of intravenous contrast. Following the intravenous administration of 14 gadolinium contrast material, axial T1 gradient echo images were obtained during various phases of
enhancement.
COMPARISON: CT abdomen pelvis 02/23/2024, 12/08/2023 and pelvic ultrasound 02/05/2024
FINDINGS:
There is a heterogeneous, loculated gas and fluid containing collection within the right lower quadrant which measures approximately 7.4 x 5.6 x 5.6 cm (series 701 image 14 and series 201 image 14) centered within the left adnexa which abuts the
sigmoid colon as well as the posterior uterine body and fundus with loss of normal retrouterine fat (series 201 image 17).
UTERUS: Anteverted. The endometrial canal measures 3 mm, previously 8 mm on prior ultrasound. There is loss of normal retrouterine facet with the left adnexal collection extending along the posterior uterine fundus and body wall.
RIGHT OVARY: Not well visualized, likely secondary to age-related atrophy.
LEFT OVARY: Not well visualized
GASTROINTESTINAL TRACT: Extensive colonic diverticulosis. The pericolonic abscess is described above.
SKELETON: Degenerative changes of the lower lumbar spine. There is a 2.0 cm sacral Tarlov cyst on the right at the S3 level. There is mild paraspinal muscular atrophy.
The urinary bladder is nondistended. There is no pelvic lymphadenopathy.
IMPRESSION:
There is a 7.5 x 5.6 x 5.6 cm heterogeneous, multiloculated collection centered within the left adnexa, which abuts the sigmoid colon and likely represents large pericolonic/diverticular abscess. This abuts and potentially extends into the posterior
uterine fundus and body given the loss of normal fat plane.
Extensive colonic diverticulosis.
Electronically signed by Rome Mills MD, 02/24/2024 5:40 PM
Dictated By: Rome Mills MD
Dictated Date & Time: 02/24/24 1726

Exams: CT Abd/pelvis W Iv Cont
CPT: [id number]
PROCEDURES: CT Abd/pelvis W Iv Cont
CLINICAL INDICATION: Left lower quadrant abdominal pain for 1 week. New severe leukocytosis. Previous cholecystectomy.
TECHNIQUE: A CT examination of the abdomen and pelvis was performed following the administration of nonionic intravenous contrast. Oral contrast was not administered. Coronal and sagittal reformatted images were obtained. Automatic exposure control
radiation dose reduction technology was utilized.
COMPARISON: Comparison is made with an ultrasound examination of the pelvis performed 02/05/2024. Comparison is made with CT examinations of the abdomen and pelvis performed 12/13/2023 and 12/08/2023.
FINDINGS:
CHEST: The heart is normal in size. There is severe calcific atherosclerotic plaque in the coronary arteries and thoracic aorta. There is no pericardial or pleural effusion. There is a mild amount of subpleural scarring in the basilar segments of
the lower lobes of both lungs.
ABDOMEN: Liver is normal in size measuring 13.7 cm in length. There is been a previous cholecystectomy. There is mild intrahepatic biliary dilatation. There is moderate distention of the common hepatic duct and mild distention of the common bile
duct. There is no pancreatic ductal dilatation or evidence for acute pancreatitis. The spleen is enlarged measuring 13.1 cm in length. There is a 3.1 cm splenule in the left upper quadrant inferior to the spleen. There is no mesenteric or
retroperitoneal lymphadenopathy.
The adrenal glands appear normal. There is moderate bilateral renal cortical volume loss. There is no hydronephrosis in either kidney. There are small number of left renal cysts measuring up to 2.1 cm in size in the lower pole of the left kidney.
There is severe calcific atherosclerotic plaque throughout the abdominal aorta and common iliac arteries. There is no abdominal aortic aneurysm.
There is no abnormal distention or wall thickening in the stomach. There are diverticula arising from the second portion of the duodenum measuring 2.3 x 4.4 cm and 2.4 cm in size. The jejunal small bowel loops appear normal. There is no upper
abdominal ascites or pneumoperitoneum.
PELVIS: There is no abnormal small bowel distention or wall thickening. The appendix appears normal.
There is severe diverticulosis throughout the sigmoid colon. There is an inflamed diverticulum protruding posteriorly from the sigmoid colon. There is an adjacent pericolonic abscess measuring 6.8 x 5.7 x 5.2 cm in AP, transverse, and craniocaudal
dimensions which contains complex fluid and air. There are multiple septations within the abscess which is located in the left adnexa and compresses the left side of the uterus. The uterus is normal in size.
The urinary bladder appears normal. There is no peritoneal fluid or lymphadenopathy in the pelvis.
SKELETON: There is mild right convex curvature of the thoracolumbar junction. There is severe discogenic degenerative disease at L2/L3 and L4/L5 with severe loss of intervertebral disc space height and moderate discogenic degenerative endplate
sclerosis. There is moderate discogenic degenerative disease at L3/L4 and L5/S1. There is mild multilevel discogenic degenerative disease in the lower thoracic spine. There is moderate to severe right-sided facet joint arthrosis at L5/S1. There is
bilateral inflammatory sacroiliitis with partial osseous fusion across the left sacroiliac joint and mild osseous erosion and sclerosis adjacent to the right sacroiliac joint.
IMPRESSION:
1. RECURRENT 6.8 cm DIVERTICULAR ABSCESS in the LEFT LOWER QUADRANT posterior to the sigmoid colon involving the left adnexa.
2. Severe diverticulosis throughout the sigmoid colon.
3. Severe calcific atherosclerotic plaque in the abdominal aorta and iliac arteries.
4. Mild splenomegaly.
5. Moderate chronic bilateral renal disease.
6. Mild biliary dilatation secondary to previous cholecystectomy.
7. 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
8. Bilateral inflammatory sacroiliitis.
Electronically signed by Gasper Myers MD, 02/23/2024 8:29 PM
[employer] Dose Report: Up-to-date CT equipment and radiation dose reduction techniques were employed. CTDIvol: 9.0 mGy. DLP: 423 mGy-cm.
Dictated By: Louis LAW,Gasper Forrest.
Dictated Date & Time: 02/23/242012
Data Reviewed
-
Diagnostic Radiology: Image personally visualized and interpreted
CT Scan: Image personally visualized and interpreted
MRI: Image personally visualized and interpreted
Impression / Plan
-
This is an 78-year-old who appears to have developed a left lower quadrant pelvic abscess which is pericolonic associated with extensive diverticulitis of colon and involving left tube and ovary. She was treated with percutaneous drainage and
antibiotics and appears to have had improvement but now is readmitted. She has rising leukocytosis while on antibiotics. She does not have a surgical abdomen and does not have obvious evidence of peritonitis but her pelvic exam is extremely
impressive given pain and discomfort with the posterior cul-de-sac mass.
My suspicion for gynecologic malignancy is very low given the fact that she has had normal tumor markers and the initial aspiration of the pelvic mass during last admission had negative cytology.
I have personally spoken to Dr. Mendoza who is possibly contemplating proceeding with surgical treatment tomorrow. Assistance from gynecology was requested and the general breaker machine tender feels that this case is better handled and more appropriate for
the level of skill set of gynecologic oncologist. I spoke to the patient and her son and explained to them that if surgery is contemplated she will most likely undergo resection of sigmoid as per colorectal surgery and I will likely perform at a
minimum left salpingo-oophorectomy but possibly bilateral salpingo-oophorectomy plus minus total hysterectomy. Based on clinical examination and review of the MRI images the abscess is somewhat confined to posterior aspect of the uterus and
anterior aspects of rectosigmoid.
I think she would benefit from cystoscopy with placement of ureteral stents prior to surgery
I do recommend a formal cardiology evaluation prior to going to the operating room given prior history of paroxysmal atrial fibrillation but I suspect she is low to moderate risk and surgery is unfortunately necessary at this time given her situation
I spoke personally to patient and her son, risks of surgery including infection bleeding injury to adjacent organs blood clots including DVT, pulmonary embolism and cardiovascular problems and development of possible fistula was discussed and
reviewed. Given the nature of surgery especially operating in an infected space the risk of injury to adjacent organs and possibility of development of fistula is higher than normal.
--- NOTE | 2024-02-27 14:46 | W.PN.ID1 ---
Date of Service
Date of Service: February 27, 2024
Today's Communication
c/w zosyn and micafungin
agree with proceeding to OR when feasible
Assessment / Plan
Pelvic Abscess - suspect diverticular abscess with secondarily involved TOA
- s/p IR aspiration of the tube as tuboovarian collection did not yield fluid
- cultures aerobic and anaerobic sent however gram stain negative and no growth to date
- blood cultures x2 are in progress and now growth to date
- c/w zosyn
- c/w micafungin added yesterday
- appreciate colorectal, Ob and Stave Log Ripsaw Operator-Onc input - would agree with proceeding to surgery when surgical teams feel it is indicated, no further preoperative optimization needed from ID perspective
Chief Complaint
-: Other (lower abdominal pressure x 2 weeks.)
Subjective / Review of Systems
no further fevers today
bp stable
no events this am
'when can we do the surgery?'
Vital Signs / Physical Exam
Vital Signs
Vital Signs
Temp Pulse Resp BP Pulse Ox
97.9 F 56 20 109/48 97
02/27/24 11:35 02/27/24 11:35 02/27/24 11:35 02/27/24 11:35 02/27/24 11:35
Physical Exam
Constitutional: No Acute Distress and Chronically Ill
Cardiovascular: Regular Rate and S1/S2; Negative Murmur or Rub
Pulmonary: Clear and Symmetric; Negative Wheezes or Rales
Gastrointestinal: Soft, Non Tender, Non Distended and Normal Bowel Sounds
Skin: Warm and Dry; Negative Rash or Jaundice
Objective Data
Lab Data
Lab Results
02/27/24 06:11
02/27/24 06:11
Estimated Creat Clear 31 ml/min 02/27/24 06:11
Total Bilirubin 0.9 mg/dl (0.2-1.3) 02/23/24 18:28
AST 26 U/L (14-36) 02/23/24 18:28
ALT 13 U/L (0-35) 02/23/24 18:28
Alkaline Phosphatase 74 U/L (38-126) 02/23/24 18:28
Most recent labs reviewed.
Micro Results:
02/26/24 13:13 Anaerobic Culture - Preliminary
Abscess Culture pending. Anaerobic cultures are examined after 3
days incubation. Additional information to follow.
02/26/24 13:13 Wound Culture - Preliminary
Abscess No growth
Gram Stain - Preliminary
02/26/24 18:37 Blood Culture - Pending
Blood/Venous
02/26/24 17:58 Blood Culture - Pending
Blood/Venous
02/26/24 11:25 C. difficile GDH Antigen & Toxins - Final
Feces/Stool Negative for toxigenic C.difficile
MRI pelvis-02/24/2024-
There is a 7.5 x 5.6 x 5.6 cm heterogeneous, multiloculated collection centered within the left adnexa, which abuts the sigmoid colon and likely represents large pericolonic/diverticular abscess. This abuts and potentially extends into the posterior
uterine fundus and body given the loss of normal fat plane.
Extensive colonic diverticulosis.
CT abdomen pelvis-02/23/2024-
1. RECURRENT 6.8 X 5.7 X 5.2 cm cm DIVERTICULAR ABSCESS in the LEFT LOWER QUADRANT posterior to the sigmoid colon involving the left adnexa.
2. Severe diverticulosis throughout the sigmoid colon.
3. Severe calcific atherosclerotic plaque in the abdominal aorta and iliac arteries.
4. Mild splenomegaly.
5. Moderate chronic bilateral renal disease.
6. Mild biliary dilatation secondary to previous cholecystectomy.
7. 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
8. Bilateral inflammatory sacroiliitis.
Care Review
Plan reviewed with: Physician (Dr Villarreal and Dr Carvalho - timing of the OR)
--- NOTE | 2024-02-27 16:39 | PTCARENOTE ---
Pt AAO x3, LIMA well, OOB to BR with assist x1/cane; sl unsteady w/OOB activity; fall prec maintained.Pt denies weakness/dizziness w/OOB activity. VSS. Telemetry:currently SB 50's. On room air- pulse ox 98%, no SOB noted. Abd soft, rounded, rena
clear liquids; pt aware of NPO past midnight for OR 02/27. Pt reports 1 loose BM this shift. Voiding in BR without difficulty. Resting in bed at present, no c/o. Will continue to monitor.
[2024-02-27] MEDS: MYCAMINE 105 MG IV (17:29)
[2024-02-27] MEDS: FLEET PHOSPHATE ENEMA-ADULT 135 ML RECTAL (18:48)
--- NOTE | 2024-02-27 19:29 | CON.CAR ---
Consultation
Consultation Request
Date/Time Consultation Requested: 02/27/24
Date/Time Consultation Performed: 02/27/24
Reason for Consultation: pre-op evaluation
Medical History
-
Chief Complaint: Abd pain
History of Present Illness:
78y F with PMH significant for hypertension, HFpEF, PAF and recent pelvic abscess who presents to ED for evaluation of recurrent / increased pelvic abscess. Patient was initially seen here in November of this year with LLQ abscess. She underwent IR
drainage at that time. Cultures grew Citrobacter and Klebsiella. Patient was treated with drainage catheter and abx and ultimately discharge to home. Patient also underwent endometrial biopsy / pelvic exam under anesthesia during that visit.
Biopsy was difficult due to cervical stenosis. Patient states that she has been followed by Dr. Cabello since that time. She was seen about 2 weeks ago and tentative plan was for outpatient labs, MRI, sigmoidoscopy and - ultimately - ex lap with
resection.
Past Medical History
Past Medical History: Arrhythmias (PAF), CHF (HFpEF) and HTN
Past Surgical History: Gynecological
Social History
Drug: None
Family History
Family History: Reviewed & Not Pertinent
Allergies / Home Medications
Allergy/AdvReac Type Severity Reaction Status Date / Time
amlodipine Allergy Unknown Verified 02/26/24 16:44
lisinopril Allergy abdominal Verified 02/23/24 18:24
cramping
unknown drug Allergy Unknown Uncoded 02/23/24 18:24
�Medication �Instructions �Recorded �Confirmed �Type
bimatoprost 0.01 % eye drops 1 drp BOTH EYES HS eye condition 12/08/23 02/23/24 History
(Lumigan)
cholecalciferol (vitamin D3) 50 50 mcg PO MOTUWETHFR supplement 12/08/23 02/23/24 History
mcg (2,000 unit) tablet (Vitamin
D3)
enalapril maleate 20 mg tablet 40 mg PO DAILY blood pressure 12/08/23 02/23/24 History
loperamide 2 mg tablet 2 mg PO BIDPRN PRN diarrhea 12/08/23 02/23/24 History
timolol maleate 0.5 % eye gel 1 drp BOTH EYES DAILY eye condition 12/08/23 02/23/24 History
forming solution
apixaban 5 mg tablet (Eliquis) 5 mg PO BID #60 tabs 12/14/23 02/23/24 Rx
Lactobacillus rhamnosus GG 10 1 cap PO DAILY Supplement 12/17/23 02/23/24 History
billion cell capsule (Culturelle)
metoprolol tartrate 25 mg tablet 12.5 mg PO BID Blood Pressure 12/17/23 02/23/24 History
spironolactone 25 mg tablet 25 mg PO DAILY 30 days #30 tabs 12/21/23 02/23/24 Rx
acetaminophen 500 mg tablet 1,000 mg PO Q6HPRN PRN mild pain 02/23/24 02/23/24 History
(Tylenol Extra Strength)
fluoxetine 20 mg capsule 20 mg PO DAILY 02/23/24 02/23/24 History
furosemide 20 mg tablet 20 mg PO MOWEFR 02/23/24 02/23/24 History
Review of Systems
-
All other systems: Negative unless noted
Physical Exam
Vital Signs
Temp Pulse Resp BP Pulse Ox
99.4 F 59 20 115/44 98
02/27/24 15:43 02/27/24 15:43 02/27/24 15:43 02/27/24 15:43 02/27/24 16:37
Lab Results
02/27/24 06:11
02/27/24 06:11
Physical Exam
General: Well Developed and Well Nourished
HEENT: Normocephalic and Anicteric
Respiratory: Clear and Non Labored Respirations
Cardiac: S1/S2, Irregular Rhythm and Murmur
GI: Other (abd/pelvic abscess - exam defered)
Musculoskeletal: No Clubbing, No Cyanosis and No Edema
Skin: Warm and Dry
Neuro: Awake
Impression / Plan
-
78F HTN, HFpEF, PAF on Eliquis, GERD, IBS and recent admission with left tubo-ovarian abscess is admitted with recurrent / increased pelvic abscess
It Business Analyst: Dr. Blas
Pre-op evaluation:
- Moderate risk patient undergoing high risk procedure.
-Stress test 01/29/24: No ischemia. Good persfusion. No scar noted.
- Patient has atrial fibrillation with EKG on 02/25/24 showed atrial fibrillation
- Due to the bleeding and surgical planning, pt is off the anticoagulation since admission (02/22)
- OK to proceed to the planned colon resection, stoma formation, DOUGLAS and BSO. Patient remains at moderate to high risk of rosalia-op complications but is optimized. No sign of acute heart failure.
Atrial fibrillation:
- CHADSVasc is 5 (Age, gender, HTN and CHF) - high risk for stroke.
- The risk of bleeding is low. With ongoing infection and systemic inflammatory response, pt is likely to have recurrence of atrial fibrillation. Previously given amiodarone with AF. Now with disruption of the anticoagulation, would avoid
amiodarone.
-Rate controlled with Metoprolol.
- Resume Eliquis once bleeding risk is low.
.
HFPEF:
-echo 12/08: EF 60-65%, aortic sclerosis, nl RV
HTN
-With infection, the BP meds are on hold
- Continue Metoporlol
- Holding enalapril / aladactone 25mg
Left tubo-ovarian abscess,
- ID is following
- Surgical resection planned.
Former smoker, continued cessation recommended
Data Reviewed
-
EKG: Tracing Personally Visualized and interpreted
Radiology: Report Reviewed by me
Medical Tests (Nuc Med, Echo etc): Image Personally Visualized and interpreted
Labs: Labs Reviewed by me
Old Records: Reviewed
[2024-02-27] MEDS: TYLENOL 650 MG PO (20:55)
[2024-02-27] MEDS: XALATAN OPHTHALMIC SOLUTION 1 DROP BOTH EYES (22:14)
[2024-02-28] MEDS: ZOSYN 50 IV ×4 (03:27→21:43)
[2024-02-28 03:30] VITALS: BP 139/58
[2024-02-28 06:00] VITALS: BMI 24.6
[2024-02-28 07:35] VITALS: BP 144/65
[2024-02-28 08:16] LABS: % Basophils 0.6 % (0-2); % Eosinophils 1.3 % (0-6); % Lymphocytes 5.9 % (20.5-51.1); % Monocytes 8.1 % (1.7-9.3); % Neutrophils 83.1 % (42.2-75.2); Absolute Basophils 0.1 10^3/uL (0-0.2); Absolute Eosinophils 0.2 10^3/uL (0-0.7); Absolute Immature Granulocytes 0.1 10^3/uL (0-0.05); Absolute Lymphocytes 0.8 10^3/uL (1.2-3.4); Absolute Monocytes 1.1 10^3/uL (0.1-0.6); Hematocrit 36.9 % (37.0-47.0); Hemoglobin 12.7 g/dL (12.0-16.0); Mean Corp Hgb Conc. 34.4 g/dL (33.0-37.0); Mean Corpuscular Hgb 30.7 pg (27.0-31.0); Mean Corpuscular Volume 89.1 fL (81.0-99.0); Mean Platelet Volume 11.6 fL (7.4-10.4); Nucleated Red Blood Cells % 0 %; Platelet Count 376 10^3/uL (130-400); Red Blood Cell Count 4.14 10^6/uL (4.20-5.40); Red Cell Dist. Width 13.2 % (11.5-14.5); White Blood Cell Count 13.3 10^3/uL (4.8-10.8)
[2024-02-28 08:37] LABS: INR 1.27; PT 15.7 Sec (11.4-14.6)
[2024-02-28 08:38] LABS: APTT 42.6 Sec (23.4-35.0)
[2024-02-28] MEDS: VISBIOME 2 CAP PO (08:44)
[2024-02-28] MEDS: TIMOPTIC 0.5% OPHTHALMIC SOLUTION 1 DROP BOTH EYES ×2 (08:44→21:43)
[2024-02-28] MEDS: PROZAC 20 MG PO (08:44)
[2024-02-28] MEDS: LOPRESSOR 12.5 MG PO (08:46)
[2024-02-28 08:49] LABS: Blood Urea Nitrogen 14 mg/dl (7-17); Calcium 9.2 mg/dl (8.4-10.2); Carbon Dioxide 26 mmol/L (22-30); Chloride 94 mmol/L (98-107); Estimated Creatinine Clearance 34 ml/min; Glucose 88 mg/dl (70-99); Potassium 4.1 mmol/L (3.5-5.1); Sodium 132 mmol/L (135-145)
[2024-02-28] MEDS: TYLENOL 650 MG PO (08:53)
[2024-02-28 11:21] LABS: APTT 43.8 Sec (23.4-35.0)
[2024-02-28 11:25] VITALS: BP 89/53
--- NOTE | 2024-02-28 12:19 | W.PN.CD ---
Today's Communication / Plan
-
-Will hold metoprolol with severe bradycardia.
-Can resume if A-fib is noted
Impression / Plan
-
78F HTN, HFpEF, PAF on Eliquis, GERD, IBS and recent admission with left tubo-ovarian abscess is admitted with recurrent / increased pelvic abscess
Litigation Coordinator: Dr. Blas
Pre-op evaluation:
-Procedure for colon resection/DOUGLAS/BSO has been postponed as the infection appears to be resolving.
-Moderate risk patient undergoing high risk procedure.
-Stress test 01/29/24: No ischemia. Good perfusion. No scar noted.
- Patient has atrial fibrillation with EKG on 02/25/24 showed atrial fibrillation
- Due to the bleeding and surgical planning, pt is off the anticoagulation since admission (02/22)
-Starting heparin at this time to observe overnight. Reassess for the need of procedure in the morning.
Atrial fibrillation:
- CHADSVasc is 5 (Age, gender, HTN and CHF) - high risk for stroke.
- The risk of bleeding is low. With ongoing infection and systemic inflammatory response, pt is likely to have recurrence of atrial fibrillation. Previously given amiodarone with AF. Now with disruption of the anticoagulation, would avoid
amiodarone.
-Sinus rhythm with bradycardia noted with PVCs. Will hold metoprolol due to severe underlying bradycardia.
-Resume Eliquis once bleeding risk is low.
.
HFPEF:
-echo 12/08: EF 60-65%, aortic sclerosis, nl RV
HTN
-With infection, the BP meds are on hold
- Continue Metoprolol
- Holding enalapril / Aldactone 25mg
Left tubo-ovarian abscess,
- ID is following
- Surgical resection planned.
Former smoker, continued cessation recommended
Physical Exam
Vital Signs/Labs
Vital Signs
Temp Pulse Resp BP Pulse Ox
98.2 F 65 16 89/53 96
02/28/24 11:25 02/28/24 11:25 02/28/24 11:25 02/28/24 11:25 02/28/24 11:25
02/27/24 02/28/24 02/29/24
06:59 06:59 06:59
Actual Weight 62.256 kg 62.851 kg
02/28/24 07:22
02/28/24 07:22
PT 15.7 Sec (11.4-14.6) H 02/28/24 07:22
INR 1.27 02/28/24 07:22
APTT 43.8 Sec (23.4-35.0) H 02/28/24 11:04
Physical Exam
Constitutional: No acute distress and Comfortable
EENT: Anicteric and Moist mucous membranes
Cardiovascular: Pedal edema is absent, JVD pressure is normal and Rhythm/rate is irregular
Respiratory: Respiratory effort normal and Lungs clear to auscul.
GI: Soft, Distention absent and Other (Deferred due to infection)
Neuro/Psych: Alert, Oriented and AO x 3
Data Reviewed
-
Date of Service: February 28, 2024
Medical Decision Making: Reviewed Test Results, Independent Historian Assessment, Test Interpretation and Review of Case with other Provider
EKG: Tracing Personally Visualized and interpreted
X-Ray/CT/US/MRI/NUC/PET: Image Personally Visualized and interpreted
Labs: Labs Reviewed by me
Old Records: Reviewed
[2024-02-28] MEDS: IMODIUM 2 MG PO ×2 (12:28→18:03)
--- NOTE | 2024-02-28 12:28 | W.PN.HOSP.TC ---
Today's Communication/Plan
-
Start heparin infusion
Hold metoprolol
Started on full liquid diet
Trend WBC and fever curve
Assessment / Plan
Assessment / Plan
A/P: Patient is an 78y F with PMH significant for HTN, A-Fib and CHF who presents to ED for evaluation of LLQ pain and increased WBC. s/p - MRI pelvis showing There is a 7.5 x 5.6 x 5.6 cm heterogeneous, multiloculated collection centered within
the left adnexa, which abuts the sigmoid colon and likely represents large pericolonic/diverticular abscess. This abuts and potentially extends into the posterior uterine fundus and body given the loss of normal fat plane.
Large pericolonic/diverticular abscess/ovarian
- CT done in the ED on admission shows significant increase in size of fluid collection abscess.
- Cont with Zosyn. Micafungin added.
- MRI pelvis noted.
- IRAD attempted aspiration of left ovarian abscess -serosanguineous fluid noted. No purulence noted. No drain was placed.
- Follow-up cultures, culture results from [facility] no growth so far. Blood cultures remains negative.
- Improvement in WBC. Afebrile.
- Per colorectal surgery and gynecology hold off on surgical intervention for now. Surgery okay for patient to be started on heparin infusion.
Benign Hypertension
- Stable. Hold spironolactone and lisinopril acutely.
- Continue metoprolol with holding parameters.
Loose stools likely 2/2 abx
-cdiff negative.
-s/p dose of imodium
Paroxysmal Atrial Fibrillation
- With mild bradycardia while at rest. No pauses noted on tele. Monitor heart rate with activity. Per cardiology hold metoprolol for now.
- Started on heparin infusion. Eliquis on hold.
- Cardiology following.
Chronic HFpEF
- Hold Lasix / spironolactone for now.
- Follow I/Os, daily weights, etc.
CKD3a
-trend cr for now. cr at baseline
DVT Prophylaxis: scds
Code Status: Full
d/w with patient son and [id number] in detail at bedside for greater than 15-20 minutes
Discussed with infectious disease, colorectal surgery and [facility].
PT eval
Anticipated Discharge: > 48 hours
Subjective/Interval History
-
Date of Service: February 28, 2024
denies abd pain or nausea or vomiting
afebrile
Objective Data
-
Labs:
Laboratory Results
02/28/24 02/28/24
07:22 11:04
WBC 13.3 H
Hgb 12.7
Hct 36.9 L
Plt Count 376
PT 15.7 H
INR 1.27
APTT 42.6 H 43.8 H
Sodium 132 L
Potassium 4.1
Chloride 94 L
Carbon Dioxide 26
BUN 14
Creatinine 1.1 H
Glucose 88
Calcium 9.2
Vital Signs:
Vital Signs
Temp Pulse Resp BP Pulse Ox
98.2 F 65 16 89/53 96
02/28/24 11:25 02/28/24 11:25 02/28/24 11:25 02/28/24 11:25 02/28/24 11:25
I&O
02/27/24 02/28/24 02/29/24
06:59 06:59 06:59
Intake Total 300 / 300 1145 / 1145
Balance 300 / 300 1145 / 1145
Physical Exam
-
General: Well Developed and No Apparent Distress
HEENT: Normocephalic, Atraumatic and Moist Mucous Membranes
Respiratory: Clear to Auscultation
Cardiac: S1/S2, Irregular Rhythm and Bradycardic; Negative Murmur, Rub or Gallop
GI: Soft, Nontender, Nondistended and Normal Bowel Sounds; Negative Organomegaly
Rectal: Deferred by Provider
Musculoskeletal: No Clubbing, No Cyanosis and No Edema
Skin: Negative Rash
Neuro: Awake, Alert, Oriented, AO x 3, No Motor Deficits and Nonfocal/Grossly Intact
Psych: Calm
Data Reviewed
-
Total Time Spent with Patient (in minutes): 56
--- NOTE | 2024-02-28 12:28 | W.PN.CRS1 ---
Today's Communication / Plan
-
cancel OR
clear liquids
IV antibiotics
Assessment/Plan
-
Assessment: 78-year-old female with a history of a pelvic abscess November 2023 status post IR drainage, presents with left lower quadrant pain for the past 5 days and found to have recurrent 6.8 cm diverticular abscess in the left lower quadrant
posterior to the sigmoid colon
02/23- MRI pelvis - There is a 7.5 x 5.6 x 5.6 cm heterogeneous, multiloculated collection centered within the left adnexa, which abuts the sigmoid colon and likely represents large pericolonic/diverticular abscess. This abuts and potentially extends
into the posterior uterine fundus and body given the loss of normal fat plane.
02/25- attempt at left ovarian abscess, unable to place drain, fluid aspirated was clear
VS: tmax 98.8. WBC 13.3 (18.6)
Plan:
-Given WBC has decreased and has benign abdominal exam, will hold off on OR
- Clear liquids
-Continue IV antibiotics
-Fluid cultures pending
Subjective Data
Subjective Data
Date of Service: February 28, 2024
Patient states she is not tender. She denies nausea or vomiting. She is very hungry.
Objective Data
-
Vital Signs
Temp Pulse Resp BP Pulse Ox
98.2 F 65 16 89/53 96
02/28/24 11:25 02/28/24 11:25 02/28/24 11:25 02/28/24 11:25 02/28/24 11:25
Intake & Output
02/27/24 02/28/24 02/29/24
06:59 06:59 06:59
Intake Total 300 / 300 1145 / 1145
Balance 300 / 300 1145 / 1145
Intake:
Oral fluids 840 / 840
IV fluids (Total) 100 / 100
NSS 100 / 100
IV piggybacks 200 / 200 305 / 305
Other:
Number of approximated SMALL 4
amounts of urine
Number of approximated MODERATE 2 5
amounts of urine
Number of unmeasured liquid
stools
Rectum 2
Lab Results
02/28/24 07:22
02/28/24 07:22
Physical Exam
-
General: No Acute Distress and AOx3
Abdomen: Soft, Non Distended and Non Tender
Skin: Warm and Dry
[2024-02-28] MEDS: HEPARIN 25000 UNITS/250 ML IV (12:43)
--- NOTE | 2024-02-28 14:57 | W.PN.GYNONC ---
Today's Communication
-
Cancel planned surgery for today, continue IV antibiotics
Impression / Plan
-
She remained afebrile and her white blood cell count decreased to 13,000.
She does not appear to be toxic
Decision by colorectal surgery is to delay surgery and to defer and schedule as an outpatient.
Continue with IV antibiotics as per infectious disease
Appreciate cardiology input, we can resume anticoagulation, I recommended Lovenox while in the hospital
I am happy to see her as an outpatient preoperatively and coordinate her surgery with colorectal surgery team
Subjective / Interval History
-
Patient remains comfortable, she was sleeping and did not complain of any pain
Objective Data
-
Lab Results:
02/28/24 07:22
02/28/24 07:22
Physical Exam
Vital Signs / I&O
Vitals
Temp Pulse Resp BP Pulse Ox
98.2 F 65 16 89/53 96
02/28/24 11:25 02/28/24 11:25 02/28/24 11:25 02/28/24 11:25 02/28/24 11:25
I&O
02/26/24 02/27/24 02/28/24 02/29/24
06:59 06:59 06:59 06:59
Intake Total 440 / 440 300 / 300 1145 / 1145
Balance 440 / 440 300 / 300 1145 / 1145
Physical Exam
General: Well Developed and No Apparent Distress
GI: Soft, Non Tender, Non Distended and Normal Bowel Sounds
[2024-02-28 15:40] VITALS: BP 112/51
[2024-02-28] MEDS: MYCAMINE 105 MG IV (18:03)
[2024-02-28 19:27] LABS: APTT 71.7 Sec (23.4-35.0)
[2024-02-28 19:47] VITALS: BP 129/54
[2024-02-28] MEDS: XALATAN OPHTHALMIC SOLUTION 1 DROP BOTH EYES (22:02)
[2024-02-28 23:55] VITALS: BP 152/58
[2024-02-29] VITALS (7 sets, daily range): BP systolic 74–160; BP diastolic 44–73; PULSE 53–59; BMI 24.7
[2024-02-29 02:31] LABS: APTT > 200.0 Sec (23.4-35.0)
[2024-02-29] MEDS: ZOSYN 50 IV ×2 (03:27→10:21)
--- NOTE | 2024-02-29 06:50 | W.PN.HOSP.TC ---
Today's Communication/Plan
-
oral abx antifungal as per ID
likely discharge tomorrow
Assessment / Plan
Assessment / Plan
Physical Exam
General: Well Developed and No Apparent Distress
HEENT: Normocephalic, Atraumatic and Moist Mucous Membranes
Respiratory: Clear to Auscultation
Cardiac: S1/S2, Irregular Rhythm and Bradycardic; Negative Murmur, Rub or Gallop
GI: Soft, Nontender, Nondistended and Normal Bowel Sounds; Negative Organomegaly
Musculoskeletal: No Clubbing, No Cyanosis and No Edema
Skin: Negative Rash
Neuro: Awake, Alert, Oriented, AO x 3, No Motor Deficits and Nonfocal/Grossly Intact
Psych: Calm
A/P: Patient is an 78y F with PMH significant for HTN, A-Fib and CHF who presents to ED for evaluation of LLQ pain and increased WBC. s/p - MRI pelvis showing There is a 7.5 x 5.6 x 5.6 cm heterogeneous, multiloculated collection centered within
the left adnexa, which abuts the sigmoid colon and likely represents large pericolonic/diverticular abscess. This abuts and potentially extends into the posterior uterine fundus and body given the loss of normal fat plane.
Large pericolonic/diverticular abscess/ovarian
- CT done in the ED on admission shows significant increase in size of fluid collection abscess.
- Cont with Zosyn. Micafungin added.
- MRI pelvis noted.
- IRAD attempted aspiration of left ovarian abscess -serosanguineous fluid noted. No purulence noted. No drain was placed.
- Follow-up cultures, culture results from [facility] no growth so far. Blood cultures remains negative.
- Improvement in WBC. Afebrile.
- Per colorectal surgery and gynecology hold off on surgical intervention for now. Surgery okay for patient to be started on heparin infusion.
Benign Hypertension
- Stable. Hold spironolactone and lisinopril acutely.
- Continue metoprolol with holding parameters.
Loose stools likely 2/2 abx
-cdiff negative.
-s/p dose of imodium
Paroxysmal Atrial Fibrillation
- With mild bradycardia while at rest. No pauses noted on tele. Monitor heart rate with activity. Per cardiology hold metoprolol for now.
- Started on heparin infusion transitioned back to Eliquis
- Cardiology following.
Chronic HFpEF
- Hold Lasix / spironolactone for now.
- Follow I/Os, daily weights, etc.
CKD3a
-trend cr for now. cr at baseline
DVT Prophylaxis: scds
Code Status: Full
d/w patient and patient's son
I spent a total of 40 minutes with the patient or on the floor. More than 50% of this time involved counseling and coordination of care.
Anticipated Discharge: Within 24 hours
Subjective/Interval History
-
Date of Service: February 29, 2024
No acute distress sitting up comfortably in chair. Reports overall feeling well.
Objective Data
-
Labs:
Laboratory Results
02/28/24 02/29/24 02/29/24
18:52 01:56 06:00
WBC Pending
Hgb Pending
Hct Pending
Plt Count Pending
APTT 71.7 H > 200.0 H*
Sodium Pending
Potassium Pending
Chloride Pending
Carbon Dioxide Pending
BUN Pending
Creatinine Pending
Glucose Pending
Calcium Pending
02/29/24
10:30
WBC
Hgb
Hct
Plt Count
APTT Pending
Sodium
Potassium
Chloride
Carbon Dioxide
BUN
Creatinine
Glucose
Calcium
Vital Signs:
Vital Signs
Temp Pulse Resp BP Pulse Ox
97.9 F 55 18 140/44 97
02/29/24 03:34 02/29/24 03:34 02/29/24 03:34 02/29/24 03:34 02/29/24 03:34
I&O
02/27/24 02/28/24 02/29/24
06:59 06:59 06:59
Intake Total 300 / 300 1145 / 1145 660 / 660
Balance 300 / 300 1145 / 1145 660 / 660
--- NOTE | 2024-02-29 08:53 | W.PN.CRS1 ---
Today's Communication / Plan
-
As below
Assessment/Plan
-
78-year-old female with recurrent pelvic abscess, unclear etiology, possibly diverticular versus adnexal, s/p IR drainage with 10 cc removed clear serous; being treated nonoperatively with IV antibiotics and improving
AFVSS
Labs pending
� Okay to advance diet to regular from colorectal standpoint
� Continue pain control with Tylenol and morphine as needed
� Continue heparin drip; okay for oral from colorectal standpoint
� Continue IV Zosyn and micafungin; follow-up cultures - ngtd; appreciate ID
� Appreciate [employer] Comp[employer] Mechanic Onc and hospitalist; okay for discharge from colorectal standpoint if tolerating regular diet; will need close follow-up with Dr. Mendoza in [place] for surgical planning
Subjective Data
Subjective Data
Date of Service: February 29, 2024
No overnight events.
Denies abdominal pain
Denies nausea/vomiting. Tolerating diet.
-flatus -BMs +voiding
Objective Data
-
Vital Signs
Temp Pulse Resp BP Pulse Ox
98.1 F 53 18 129/54 100
02/29/24 08:09 02/29/24 08:09 02/29/24 08:09 02/29/24 08:09 02/29/24 08:09
Intake & Output
02/28/24 02/29/24 03/01/24
06:59 06:59 06:59
Intake Total 1145 / 1145 660 / 660
Balance 1145 / 1145 660 / 660
Intake:
Oral fluids 840 / 840 480 / 480
IV piggybacks 305 / 305 180 / 180
Other:
Number of approximated SMALL 4
amounts of urine
Number of approximated MODERATE 5 4
amounts of urine
Physical Exam
-
General: No Acute Distress and AOx3
HEENT: Grossly Normal
Abdomen: Soft, Non Distended and Non Tender
Skin: Warm and Dry
[2024-02-29] MEDS: VISBIOME 2 CAP PO (09:00)
[2024-02-29] MEDS: PROZAC 20 MG PO (09:01)
[2024-02-29] MEDS: TIMOPTIC 0.5% OPHTHALMIC SOLUTION 1 DROP BOTH EYES (09:01)
[2024-02-29] MEDS: VITAMIN D3 (cholecalciferol) 50 MCG PO (09:02)
[2024-02-29 09:15] LABS: % Basophils 0.5 % (0-2); % Eosinophils 1.1 % (0-6); % Immature Granulocytes 1.3 % (0-0.5); % Lymphocytes 9.3 % (20.5-51.1); % Monocytes 7.3 % (1.7-9.3); % Neutrophils 80.5 % (42.2-75.2); Absolute Basophils 0.1 10^3/uL (0-0.2); Absolute Eosinophils 0.1 10^3/uL (0-0.7); Absolute Immature Granulocytes 0.2 10^3/uL (0-0.05); Absolute Lymphocytes 1.1 10^3/uL (1.2-3.4); Absolute Monocytes 0.8 10^3/uL (0.1-0.6); Absolute Neutrophils 9.1 10^3/uL (1.4-6.5); Hematocrit 36.6 % (37.0-47.0); Hemoglobin 12.5 g/dL (12.0-16.0); Mean Corp Hgb Conc. 34.2 g/dL (33.0-37.0); Mean Corpuscular Hgb 30.9 pg (27.0-31.0); Mean Corpuscular Volume 90.4 fL (81.0-99.0); Mean Platelet Volume 11.5 fL (7.4-10.4); Nucleated Red Blood Cells % 0 %; Platelet Count 394 10^3/uL (130-400); Red Blood Cell Count 4.05 10^6/uL (4.20-5.40); Red Cell Dist. Width 13.1 % (11.5-14.5); White Blood Cell Count 11.3 10^3/uL (4.8-10.8)
[2024-02-29 09:53] LABS: Blood Urea Nitrogen 8 mg/dl (7-17); Carbon Dioxide 26 mmol/L (22-30); Chloride 96 mmol/L (98-107); Estimated Creatinine Clearance 37 ml/min; Glucose 86 mg/dl (70-99); Sodium 135 mmol/L (135-145); eGFR 56.95
[2024-02-29] MEDS: FLUSH (NSS) 1 FLUSH IV (10:21)
--- NOTE | 2024-02-29 10:24 | W.PN.CD ---
Today's Communication / Plan
-
- Stop heparin and switch to Eliquis.
- Holding Metoprolol due to bradycardia.
- Holding enalapril / Aldactone 25mg - can restart as outpatient at a later date.
Impression / Plan
-
78F HTN, HFpEF, PAF on Eliquis, GERD, IBS and recent admission with left tubo-ovarian abscess is admitted with recurrent / increased pelvic abscess
Associate Curator: Dr. Blas
Pre-op evaluation:
-Procedure for colon resection/DOUGLAS/BSO has been postponed as the infection appears to be resolving. Plan for surgery in 2-3 weeks.
-Moderate risk patient undergoing high risk procedure.
-Stress test 01/29/24: No ischemia. Good perfusion. No scar noted.
- Patient has atrial fibrillation with EKG on 02/25/24 showed atrial fibrillation
- Due to the bleeding and surgical planning, pt is off the anticoagulation since admission (02/22)
- On heparin. Can stop heparin now. Switch to Eliquis 5 mg BID
- Stop Eliquis 2 days prior to the surgery and resume post op when the risk of bleeding is low.
Atrial fibrillation:
- CHADSVasc is 5 (Age, gender, HTN and CHF) - high risk for stroke.
- The risk of bleeding is low. With ongoing infection and systemic inflammatory response, pt is likely to have recurrence of atrial fibrillation. Previously given amiodarone with AF. Now with disruption of the anticoagulation, would avoid
amiodarone.
-Sinus rhythm with bradycardia noted with PVCs. Will hold metoprolol due to severe underlying bradycardia.
.
HFPEF:
-echo 12/08: EF 60-65%, aortic sclerosis, nl RV
HTN
-With infection, the BP meds are on hold
- Holding Metoprolol due to bradycardia.
- Holding enalapril / Aldactone 25mg - can restart as outpatient at a later date.
Left tubo-ovarian abscess,
- ID is following
- Surgical resection planned in 2-3 weeks.
Former smoker, continued cessation recommended
Physical Exam
Vital Signs/Labs
Vital Signs
Temp Pulse Resp BP Pulse Ox
98.1 F 53 18 129/54 100
02/29/24 08:09 02/29/24 08:09 02/29/24 08:09 02/29/24 08:09 02/29/24 08:09
02/28/24 02/29/24 03/01/24
06:59 06:59 06:59
Actual Weight 62.851 kg 63.134 kg
02/29/24 08:29
02/29/24 08:29
PT 15.7 Sec (11.4-14.6) H 02/28/24 07:22
INR 1.27 02/28/24 07:22
APTT > 200.0 Sec (23.4-35.0) H* 02/29/24 01:56
Physical Exam
Constitutional: No acute distress and Comfortable
EENT: Anicteric and Moist mucous membranes
Cardiovascular: Rhythm & rate is regular, Pedal edema is absent and JVD pressure is normal
Respiratory: Respiratory effort normal, Lungs clear to auscul., Wheeze Absent and Crackles Absent
GI: Soft, Non tender and Normal bowel sounds
Neuro/Psych: Alert, Oriented and AO x 3
Data Reviewed
-
Date of Service: February 29, 2024
EKG: Tracing Personally Visualized and interpreted (Sinu with PVCs)
Echo: Report Reviewed by me
Labs: Labs Reviewed by me
Old Records: Reviewed
[2024-02-29 11:09] LABS: APTT 75.2 Sec (23.4-35.0)
--- NOTE | 2024-02-29 14:20 | W.PN.ID1 ---
Date of Service
Date of Service: February 29, 2024
Today's Communication
switch to augmentin and fluconazole
recheck ekg in the am
Assessment / Plan
Pelvic Abscess - suspect diverticular abscess with secondarily involved TOA
- s/p IR aspiration of the tube as tuboovarian collection did not yield fluid
- cultures aerobic and anaerobic sent from fallopian tube fluid - no growth to date
- blood cultures x2 are in progress and now growth to date
- QTc 447
- start augmentin - stop zosyn
- start fluconazole - stop micafungin
- recheck qtc in the AM
- if clinically well on the oral regimen overnight then can plan to continue both Augmentin and fluconazole through 03/10
- appreciate colorectal, Ob and Prorate Clerk-Onc input - doubt that patient will have full resolution with medical therapy alone particularly given previous failure. She has follow up with colorectal and prints and drawings curator-onc planned
- extended discussion with adult son Arpit olmos) and Regla - explained my concern that risk of relapse is high if surgery is declined
Chief Complaint
-: Other (lower abdominal pressure x 2 weeks.)
Subjective / Review of Systems
afebrile
bp stable
no abdominal pain, enjoying having her usual diet
Vital Signs / Physical Exam
Vital Signs
Vital Signs
Temp Pulse Resp BP Pulse Ox
98 F 57 18 111/56 100
02/29/24 11:42 02/29/24 11:42 02/29/24 11:42 02/29/24 11:42 02/29/24 11:47
Physical Exam
Constitutional: No Acute Distress
Cardiovascular: Regular Rate and S1/S2; Negative Murmur or Rub
Pulmonary: Clear and Symmetric; Negative Wheezes or Rales
Gastrointestinal: Soft, Non Tender, Non Distended and Normal Bowel Sounds
Skin: Warm and Dry; Negative Rash or Jaundice
Objective Data
Lab Data
Lab Results
02/29/24 08:29
02/29/24 08:29
PT 15.7 Sec (11.4-14.6) H 02/28/24 07:22
INR 1.27 02/28/24 07:22
APTT 75.2 Sec (23.4-35.0) H 02/29/24 10:40
Estimated Creat Clear 37 ml/min 02/29/24 08:29
Total Bilirubin 0.9 mg/dl (0.2-1.3) 02/23/24 18:28
AST 26 U/L (14-36) 02/23/24 18:28
ALT 13 U/L (0-35) 02/23/24 18:28
Alkaline Phosphatase 74 U/L (38-126) 02/23/24 18:28
Most recent labs reviewed.
Micro Results:
02/26/24 13:13 Anaerobic Culture - Preliminary
Abscess NO ANAEROBES ISOLATED
02/26/24 13:13 Wound Culture - Preliminary
Abscess No growth
Gram Stain - Preliminary
02/26/24 17:58 Blood Culture - Preliminary
Blood/Venous No Growth in 48 hours- Final report to follow
02/26/24 18:37 Blood Culture - Preliminary
Blood/Venous No Growth in 48 hours- Final report to follow
02/26/24 11:25 C. difficile GDH Antigen & Toxins - Final
Feces/Stool Negative for toxigenic C.difficile
MRI pelvis-02/24/2024-
There is a 7.5 x 5.6 x 5.6 cm heterogeneous, multiloculated collection centered within the left adnexa, which abuts the sigmoid colon and likely represents large pericolonic/diverticular abscess. This abuts and potentially extends into the posterior
uterine fundus and body given the loss of normal fat plane.
Extensive colonic diverticulosis.
CT abdomen pelvis-02/23/2024-
1. RECURRENT 6.8 X 5.7 X 5.2 cm cm DIVERTICULAR ABSCESS in the LEFT LOWER QUADRANT posterior to the sigmoid colon involving the left adnexa.
2. Severe diverticulosis throughout the sigmoid colon.
3. Severe calcific atherosclerotic plaque in the abdominal aorta and iliac arteries.
4. Mild splenomegaly.
5. Moderate chronic bilateral renal disease.
6. Mild biliary dilatation secondary to previous cholecystectomy.
7. 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
8. Bilateral inflammatory sacroiliitis.
[2024-02-29] MEDS: DIFLUCAN 400 MG PO (15:51)
--- NOTE | 2024-02-29 16:33 | PTCARENOTE ---
Pt AAO x3, LIMA; OOB in chair/ambulatory to BR with assist x1/cane; rena well, sl unsteady w/OOB activity, denies weakness/dizziness. VSS. telemetry:sinus araceli 50's. On room air- pulse ox 98%, no SOB noted. Abd soft, rena low residue diet; no BM so
far this shift. Voiding in BR without difficulty. Pt started on PO Eliquis; IV Heparin drip dc'd. Resting comfortably at present. Will continue to monitor.
[2024-02-29] MEDS: ELIQUIS 5 MG PO (16:38)
[2024-02-29] MEDS: AUGMENTIN 875 MG/125 MG 1 TABLET PO (20:37)
[2024-02-29] MEDS: XALATAN OPHTHALMIC SOLUTION 1 DROP BOTH EYES (20:37)
[2024-02-29] MEDS: TIMOPTIC 0.5% OPHTHALMIC SOLUTION BOTH EYES (20:38)
[2024-03-01 03:18] VITALS: BP 156/54
[2024-03-01 06:00] VITALS: BMI 24.8
[2024-03-01 07:34] VITALS: BP 154/68
--- NOTE | 2024-03-01 07:48 | W.PN.HOSP.TC ---
Today's Communication/Plan
-
discharge
Assessment / Plan
Assessment / Plan
Physical Exam
General: Well Developed and No Apparent Distress
HEENT: Normocephalic, Atraumatic and Moist Mucous Membranes
Respiratory: Clear to Auscultation
Cardiac: S1/S2, Irregular Rhythm and Bradycardic; Negative Murmur, Rub or Gallop
GI: Soft, Nontender, Nondistended and Normal Bowel Sounds; Negative Organomegaly
Musculoskeletal: No Clubbing, No Cyanosis and No Edema
Skin: Negative Rash
Neuro: Awake, Alert, Oriented, AO x 3, No Motor Deficits and Nonfocal/Grossly Intact
Psych: Calm
A/P: Patient is an 78y F with PMH significant for HTN, A-Fib and CHF who presents to ED for evaluation of LLQ pain and increased WBC. s/p - MRI pelvis showing There is a 7.5 x 5.6 x 5.6 cm heterogeneous, multiloculated collection centered within
the left adnexa, which abuts the sigmoid colon and likely represents large pericolonic/diverticular abscess. This abuts and potentially extends into the posterior uterine fundus and body given the loss of normal fat plane.
Large pericolonic/diverticular abscess/ovarian
- CT done in the ED on admission shows significant increase in size of fluid collection abscess.
- ID eval appreciated Zosyn Micafungin converted to oral Augmentin Fluconazole to continue through 03/10/24 no significant QT prolongation noted
- MRI pelvis noted.
- IRAD attempted aspiration of left ovarian abscess -serosanguineous fluid noted. No purulence noted. No drain was placed.
- Follow-up cultures, culture results from [facility] no growth so far. Blood cultures remains negative.
- Improvement in WBC. Afebrile.
- Per colorectal surgery and gynecology holding off on surgical intervention for now (planned for outpt).
Benign Hypertension
- Stable. Spironolactone and Enalapril held acutely.
- Metoprolol on hold d/t bradycardia
-Cardio eval appreciated, cont hold enalapril aldactone, outpt follow up for possible restart
Loose stools likely 2/2 abx
-cdiff negative.
-s/p dose of imodium
Paroxysmal Atrial Fibrillation
- With mild bradycardia while at rest. No pauses noted on tele. Monitor heart rate with activity. Per cardiology hold metoprolol for now.
- Started on heparin infusion transitioned back to Eliquis
Chronic HFpEF
- resume home Lasix on discharge
-cont hold enalapril metoprolol Aldactone as per Cardiology
CKD3a
-trend cr for now. cr at baseline
DVT Prophylaxis: scds
Code Status: Full
Medically stable for discharge home with home services and outpatient follow up recommendations.
d/w patient and patient's son Arpit
Total Time Preparing Discharge __50 minutes including examination of the patient, summary of the hospital stay, instructions for continuing care to all relevant caregivers; and preparation of discharge records, prescriptions, and referral
forms if necessary.
Anticipated Discharge: Today
Subjective/Interval History
-
Date of Service: March 01, 2024
Seen and examined at bedside in no acute distress sitting up comfortably in chair. Reports overall feeling well. Tolerating diet. Denies new acute issues. Eager to go home. Son Arpit present during evaluation.
Objective Data
-
Vital Signs:
Vital Signs
Temp Pulse Resp BP Pulse Ox
98.3 F 56 18 156/54 98
03/01/24 03:18 03/01/24 03:18 03/01/24 03:18 03/01/24 03:18 03/01/24 03:18
I&O
02/29/24 03/01/24 03/02/24
06:59 06:59 06:59
Intake Total 660 / 660 662 / 662
Balance 660 / 660 662 / 662
[2024-03-01] MEDS: DIFLUCAN 400 MG PO (10:09)
[2024-03-01] MEDS: VISBIOME 2 CAP PO (10:10)
[2024-03-01] MEDS: PROZAC 20 MG PO (10:10)
[2024-03-01] MEDS: TIMOPTIC 0.5% OPHTHALMIC SOLUTION 1 DROP BOTH EYES (10:10)
[2024-03-01] MEDS: AUGMENTIN 875 MG/125 MG 1 TABLET PO (10:10)
[2024-03-01] MEDS: ELIQUIS 5 MG PO (10:10)
[2024-03-01] MEDS: VITAMIN D3 (cholecalciferol) 50 MCG PO (10:21)
--- NOTE | 2024-03-01 11:41 | W.PN.GYNONC ---
Today's Communication
-
possible dc home within next 24 hr
Impression / Plan
-
She remained afebrile and her white blood cell count decreased
She does not appear to be toxic
Decision by colorectal surgery is to delay surgery and to defer and schedule as an outpatient.
As per infectious disease we are switching antibiotics to Augmentin and fluconazole
Blood cultures have been negative, aspiration of the fluid did not result in any additional information as per culture
I plan to coordinate timing of the surgery with colorectal surgery team hopefully within the next month. My hope is that her case can be approached with the minimally invasive approach and we may need urology to place ureteral stents for
intraoperative identification.
Subjective / Interval History
-
She feels well, she has been up and about, has had several solid bowel movements and is tolerating diet okay
Objective Data
-
Lab Results:
02/29/24 08:29
02/29/24 08:29
Physical Exam
Vital Signs / I&O
Vitals
Temp Pulse Resp BP Pulse Ox
98.5 F 59 18 154/68 96
03/01/24 07:34 03/01/24 07:34 03/01/24 07:34 03/01/24 07:34 03/01/24 07:34
I&O
02/28/24 02/29/24 03/01/24 03/02/24
06:59 06:59 06:59 06:59
Intake Total 1145 / 1145 660 / 660 662 / 662
Balance 1145 / 1145 660 / 660 662 / 662
Physical Exam
Respiratory: Clear and Non Labored Respirations
Cardiac: S1/S2 and Irregular Rhythm
GI: Soft, Non Tender and Non Distended
Psych: Intact Judgement
[2024-03-01 11:58] VITALS: BP 115/61
[2024-03-01] MEDS: MAALOX 30 ML PO (12:26)
--- NOTE | 2024-03-01 13:06 | W.PN.CRS1 ---
Today's Communication / Plan
-
okay for d/c from our standpoint
outpatient surgical planning
Assessment/Plan
-
78-year-old female with recurrent pelvic abscess, unclear etiology, possibly diverticular versus adnexal, s/p IR drainage with 10 cc removed clear serous; being treated nonoperatively with IV antibiotics and improving
AFVSS
� Continue diet
� Continue pain control with Tylenol and morphine as needed
� Currently on Eliquis
� Continue IV Zosyn and micafungin; follow-up cultures - ngtd; appreciate ID
� Appreciate [employer] and hospitalist; okay for discharge from colorectal standpoint if tolerating regular diet; will need close follow-up with Dr. Griffith and Dr. Hanks for surgical planning
Subjective Data
Subjective Data
Date of Service: March 01, 2024
Patient states she feels well. She has no abdominal complaints. She denies nausea or vomiting. She is tolerating a diet. She would like to go home.
Objective Data
-
Vital Signs
Temp Pulse Resp BP Pulse Ox
98 F 53 18 115/61 98
03/01/24 11:58 03/01/24 11:58 03/01/24 11:58 03/01/24 11:58 03/01/24 11:58
Intake & Output
02/29/24 03/01/24 03/02/24
06:59 06:59 06:59
Intake Total 660 / 660 662 / 662
Balance 660 / 660 662 / 662
Intake:
Oral fluids 480 / 480 540 / 540
IV fluids (Total) 72 / 72
IV piggybacks 180 / 180 50 / 50
Other:
Number of approximated MODERATE 4 3
amounts of urine
Lab Results
02/29/24 08:29
02/29/24 08:29
Physical Exam
-
General: No Acute Distress and AOx3
Abdomen: Soft, Non Distended and Non Tender
Skin: Warm and Dry
--- NOTE | 2024-03-01 14:54 | W.DCSUMMARY ---
Discharge Summary
Discharge Data
Date of Admission: 02/23/24
Date of Discharge: 03/01/24
-
Pending Results: Yes
Additional Pending Results:
Official Culture results
Discharge Plan
-
Patient Disposition: Home with Home Care
Discharge Diagnosis/Procedures: Pelvic Abscess
History hypertension
Paroxysmal Atrial Fibrillation
Chronic Heart Failure with Preserved Ejection Fraction
Chronic Kidney Disease stage 3
Condition: Fair
Diet: Low Residue
Additional Diets: ok to advance diet as tolerated after 1 week
Activity: As tolerated
Driving Restrictions: Not until seen by your Dr
Bathing Restrictions: None
Blood Work: Repeat CBC and BMP with primary care provider in 1 week of discharge.
Other Services: PT and OT
Specialty Instructions: Weigh Daily- Call MD for wt gain/loss 3 lbs overnight/5 lbs in 1 week
Activity Restrictions/Additional Instructions:
Please follow up with primary care provider in 1 week of discharge and, in two weeks of discharge, follow up with Cardiology, Colorectal Surgery, and Gynecology.
Augmentin and Fluconazole have been prescribed to treat pelvic abscess. Last day of antibiotics and antifungal, respectively, 03/10/24 as per infectious disease recommendation.
Metoprolol has been discontinued due to bradycardia, please follow up with Cardiology or primary care provider before considering to resume.
Enalapril and Spironolactone have been placed on hold due to hypotension, possibly due to infection. Follow up with Cardiology or primary care provider to determine when safe to resume these medications.
Please take medications as prescribed/recommended and follow up with primary care provider and/or other healthcare provider involved in your care for further adjustments to your medication regimen as necessary.
Referrals:
Joey Blas MD [Active] - in two weeks
Ck Griffith MD [Active] - in two weeks
Prince Maldonado MD [Family Provider] - in one week
Roberth Hanks MD [Active] - in two weeks
Prescriptions:
New
amoxicillin-pot clavulanate 875-125 mg Tablet
1 tab PO Q12 Qty: 19 0RF
Rx Instructions:
Last day of antibiotics 03/10/24
fluconazole 200 mg Tablet
400 mg PO DAILY 9 Days Qty: 18 0RF
Rx Instructions:
Last day of antifungal 03/10/24
Continued
loperamide 2 mg Tablet
2 mg PO BIDPRN PRN (Reason: diarrhea )
timolol maleate 0.5 % Gel Forming Solution
1 drp BOTH EYES DAILY
cholecalciferol (vitamin D3) [Vitamin D3] 50 mcg (2,000 unit) Tablet
50 mcg PO MOTUWETHFR
Lumigan 0.01 % Drops
1 drp BOTH EYES HS
Eliquis 5 mg Tablet
5 mg PO BID Qty: 60 0RF
Culturelle 10 billion cell Capsule
1 cap PO DAILY
acetaminophen [Tylenol Extra Strength] 500 mg Tablet
1,000 mg PO Q6HPRN PRN (Reason: mild pain)
fluoxetine 20 mg Capsule
20 mg PO DAILY
furosemide 20 mg tablet
20 mg PO MOWEFR
Held
enalapril maleate 20 mg Tablet
40 mg PO DAILY
Hold Instructions: Follow up with Cardiology to determine when safe to resume, if necessary to resume, or if an alternative medication is required instead
spironolactone 25 mg Tablet
25 mg PO DAILY 30 Days Qty: 30 0RF
Hold Instructions: Follow up with Cardiology to determine when safe to resume, if necessary to resume, or if an alternative medication is required instead
Discontinued
metoprolol tartrate 25 mg tablet
12.5 mg PO BID
Discharge Orders:
Discharge Patient (As Directed); Ordered 03/01/24
Ordered By: Vignesh Mejia
Discharge Date and Time
Print Language: GHANAIAN
--- NOTE | 2024-03-01 15:20 | CM ---
CALI met with Regla and her son today. Regla is excited to be going home. She will need to return for surgery in a few weeks, but hoping it will be done laparoscopically.
Plan: Discharge to home today with [facility]. Call to [facility] to make them aware, referral in [facility].
--- NOTE | 2024-03-01 15:45 | W.PN.ID1 ---
Date of Service
Date of Service: March 01, 2024
Today's Communication
- continue both Augmentin and fluconazole through 03/10
Assessment / Plan
Pelvic Abscess - suspect diverticular abscess with secondarily involved TOA
- s/p IR aspiration of the tube as tuboovarian collection did not yield fluid
- cultures aerobic and anaerobic sent from fallopian tube fluid - no growth to date
- blood cultures x2 are in progress and now growth to date
- QTc 447
- continue both Augmentin and fluconazole through 03/10
- appreciate colorectal, [facility]-Onc input - doubt that patient will have full resolution with medical therapy alone particularly given previous failure. 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
AW
Chief Complaint
-: Other (lower abdominal pressure x 2 weeks.)
Subjective / Review of Systems
afebrile
has an appetite
no abdominal pain
Vital Signs / Physical Exam
Vital Signs
Vital Signs
Temp Pulse Resp BP Pulse Ox
98 F 53 18 115/61 98
03/01/24 11:58 03/01/24 11:58 03/01/24 11:58 03/01/24 11:58 03/01/24 11:58
Physical Exam
Constitutional: No Acute Distress
Cardiovascular: Regular Rate and S1/S2; Negative Murmur or Rub
Pulmonary: Clear and Symmetric; Negative Wheezes or Rales
Gastrointestinal: Soft, Non Tender, Non Distended and Normal Bowel Sounds
Skin: Warm and Dry; Negative Rash or Jaundice
Objective Data
Lab Data
Lab Results
02/29/24 08:29
02/29/24 08:29
PT 15.7 Sec (11.4-14.6) H 02/28/24 07:22
INR 1.27 02/28/24 07:22
APTT Cancelled 02/29/24 16:30
Estimated Creat Clear 37 ml/min 02/29/24 08:29
Total Bilirubin 0.9 mg/dl (0.2-1.3) 02/23/24 18:28
AST 26 U/L (14-36) 02/23/24 18:28
ALT 13 U/L (0-35) 02/23/24 18:28
Alkaline Phosphatase 74 U/L (38-126) 02/23/24 18:28
Most recent labs reviewed.
Micro Results:
02/26/24 17:58 Blood Culture - Preliminary
Blood/Venous No Growth in 72 hours- Final report to follow
02/26/24 18:37 Blood Culture - Preliminary
Blood/Venous No Growth in 72 hours- Final report to follow
02/26/24 13:13 Anaerobic Culture - Preliminary
Abscess NO ANAEROBES ISOLATED
02/26/24 13:13 Wound Culture - Preliminary
Abscess No growth
Gram Stain - Preliminary
02/26/24 11:25 C. difficile GDH Antigen & Toxins - Final
Feces/Stool Negative for toxigenic C.difficile
MRI pelvis-02/24/2024-
There is a 7.5 x 5.6 x 5.6 cm heterogeneous, multiloculated collection centered within the left adnexa, which abuts the sigmoid colon and likely represents large pericolonic/diverticular abscess. This abuts and potentially extends into the posterior
uterine fundus and body given the loss of normal fat plane.
Extensive colonic diverticulosis.
CT abdomen pelvis-02/23/2024-
1. RECURRENT 6.8 X 5.7 X 5.2 cm cm DIVERTICULAR ABSCESS in the LEFT LOWER QUADRANT posterior to the sigmoid colon involving the left adnexa.
2. Severe diverticulosis throughout the sigmoid colon.
3. Severe calcific atherosclerotic plaque in the abdominal aorta and iliac arteries.
4. Mild splenomegaly.
5. Moderate chronic bilateral renal disease.
6. Mild biliary dilatation secondary to previous cholecystectomy.
7. 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
8. Bilateral inflammatory sacroiliitis.
== END 2024-03-01 16:03 | disposition home health service (06) | DRG 742 ==
LOC: 4 EAST ACU 21:43
PROVIDERS: Hospitalist; Physician Assistant; Radiology Diagnostic Radiology; Student in an Organized Health Care Education/Training Program; ADMITTING PHYSICIAN Hospitalist; ATTENDING PHYSICIAN Internal Medicine; CONSULT PHYSICIAN Internal Medicine Cardiovascular Disease; CONSULT PHYSICIAN Obstetrics & Gynecology Gynecologic Oncology; CONSULT PHYSICIAN Surgery; EMERGENCY PHYSICIAN Emergency Medicine; FAMILY PHYSICIAN Internal Medicine; OTHER PHYSICIAN Student in an Organized Health Care Education/Training Program
PROC: 0U9 Female Reproductive System, Drainage (ICD-10-PCS; 2024-02-27)
DX: N70.93 Salpingitis and oophoritis, unspecified (principal); I13.0 Hypertensive heart and chronic kidney disease with heart failure and stage 1 through stage 4 chronic kidney disease, or unspecified chronic kidney disease; K57.20 Diverticulitis of large intestine with perforation and abscess without bleeding; I50.32 Chronic diastolic (congestive) heart failure; Q89.09 Congenital malformations of spleen; N18.31 Chronic kidney disease, stage 3a; N73.9 Female pelvic inflammatory disease, unspecified; I48.0 Paroxysmal atrial fibrillation; K21.9 Gastro-esophageal reflux disease without esophagitis; N88.2 Stricture and stenosis of cervix uteri; N28.1 Cyst of kidney, acquired; M47.816 Spondylosis without myelopathy or radiculopathy, lumbar region; M46.1 Sacroiliitis, not elsewhere classified; K58.9 Irritable bowel syndrome, unspecified; N84.1 Polyp of cervix uteri; D75.838 Other thrombocytosis; H40.9 Unspecified glaucoma; N95.2 Postmenopausal atrophic vaginitis; M62.50 Muscle wasting and atrophy, not elsewhere classified, unspecified site; R16.1 Splenomegaly, not elsewhere classified; R68.89 Other general symptoms and signs; Z79.01 Long term (current) use of anticoagulants; Z79.899 Other long term (current) drug therapy; Z87.891 Personal history of nicotine dependence; Z88.8 Allergy status to other drugs, medicaments and biological substances; Z90.49 Acquired absence of other specified parts of digestive tract
CPT/HCPCS: 49406; 72197; 74177; 80048; 80053; 83690; 85025; 85027; 85610; 85730; 86850; 86900; 86901; 87040; 87070; 87075; 87205; 87324; 87449; 93005; 97116; 97162; 99152; 99153; 99285; A9575; Q9967

== ENCOUNTER 2024-03-10 23:47 | Inpatient (IN) | payer MEDICARE, SELFPAY ==
[2024-03-10 18:32] VITALS: BP 144/68
--- NOTE | 2024-03-10 18:36 | ED.GENMED ---
ED Provider Triage
-
Patient seen by provider in Triage?: Seen in Triage
Attestation: A medical screening examination has been initiated by a qualified medical provider. Based on the assessment performed at this time, it has been determined that an emergent medical condition may exist and the patient has been informed
that further medical evaluation and possible additional diagnostic testing may be needed.
HPI: 78yoF here with leukocytosis noted on outpatient labs. Recent hospitalizations for recurrent diverticular abscess. Today was last dose of Augmentin. WBC 16 as an outpatient. C/o worsening abd pain.
GENERAL: Alert , in no apparent distress
EYE: No visual abnormalities.
NECK: Trachea midline
ENT: No visible abnormalities.
LUNGS: No acute respiratory distress
NEUROLOGICAL: Alert and oriented
SKIN: Skin intact. No visible changes.
MUSCULOSKELETAL: Moving extremities normally
PSYCH: Normal and appropriate interaction.
This is a medical evaluation conducted in person to initiate diagnostic evaluation and provide initial therapeutics. Please see further documentation by the treating clinician.
CBC, CMP, lactate, and CT abdomen with PO/IV contrast ordered.
History of Present Illness
General
Chief Complaint: Abnormal Lab Value
Past History
Past History
ED Past Medical History: Other (A-fib, hypertension, pelvic abscess status post drainage November 2023)
Social History
Tobacco: Non-smoker
Alcohol: None
Drug: None
Living: with family
Course
Orders/Labs/Results
Orders:
Orders
03/10/24 18:33
Complete Blood Count/With Diff Urgent
03/10/24 18:34
CT Abd/pelvis W Iv Cont Urgent
Comment:
Reason For Exam: Leukocytosis, hx of recurrent diverticular abscess
Comprehensive Metabolic Panel Urgent
Lactate Level [Lactic Acid] Urgent
Vital Signs
Initial and Last Documented VS:
Initial Vital Signs
Temp Pulse Resp BP Pulse Ox
98.5 F 54 18 144/68 98
03/10/24 18:32 10/10/24 18:32 03/10/24 18:32 03/10/24 18:32 03/10/24 18:32
Last Documented Vital Signs
Temp Pulse Resp BP Pulse Ox
98.5 F 54 18 144/68 98
03/10/24 18:32 03/10/24 18:32 03/10/24 18:32 03/10/24 18:32 03/10/24 18:32
ED Attending Note
-
Portions of this chart may have been created with voice recognition software.� Occasional wrong word or��sound alike� substitutions may have occurred due to the inherent limitations of voice recognition software.
Discharge Plan
Departure
Prescriptions:
No Action
enalapril maleate 20 mg Tablet
40 mg PO DAILY
loperamide 2 mg Tablet
2 mg PO BIDPRN PRN (Reason: diarrhea )
timolol maleate 0.5 % Gel Forming Solution
1 drp BOTH EYES DAILY
cholecalciferol (vitamin D3) [Vitamin D3] 50 mcg (2,000 unit) Tablet
50 mcg PO MOTUWETHFR
Lumigan 0.01 % Drops
1 drp BOTH EYES HS
Eliquis 5 mg Tablet
5 mg PO BID Qty: 60 0RF
Culturelle 10 billion cell Capsule
1 cap PO DAILY
spironolactone 25 mg Tablet
25 mg PO DAILY 30 Days Qty: 30 0RF
acetaminophen [Tylenol Extra Strength] 500 mg Tablet
1,000 mg PO Q6HPRN PRN (Reason: mild pain)
fluoxetine 20 mg Capsule
20 mg PO DAILY
furosemide 20 mg tablet
20 mg PO MOWEFR
amoxicillin-pot clavulanate 875-125 mg Tablet
1 tab PO Q12 Qty: 19 0RF
Rx Instructions:
Last day of antibiotics 03/10/24
fluconazole 200 mg Tablet
400 mg PO DAILY 9 Days Qty: 18 0RF
Rx Instructions:
Last day of antifungal 03/10/24
Interventions
Interventions:
*Risk Screen - Suicide Last Done: 03/10/24 18:32
*General Assessment Last Done: 03/10/24 18:32
*Neglect/Abuse Screening Last Done: 03/10/24 18:32
*ED COVID-19 Vaccine History Last Done: 03/10/24 18:32
Discharge Date and Time
Print Language: MALAY
[2024-03-10] MEDS: OMNIPAQUE 50 ML PO (18:42)
[2024-03-10 19:35] VITALS: BP 169/65
[2024-03-10 20:00] VITALS: BP 182/85
[2024-03-10 20:21] LABS: Hematocrit 37.2 % (37.0-47.0); Hemoglobin 12.9 g/dL (12.0-16.0); Mean Corp Hgb Conc. 34.7 g/dL (33.0-37.0); Mean Corpuscular Hgb 30.6 pg (27.0-31.0); Mean Corpuscular Volume 88.2 fL (81.0-99.0); Mean Platelet Volume 11.4 fL (7.4-10.4); Platelet Count 349 10^3/uL (130-400); Red Blood Cell Count 4.22 10^6/uL (4.20-5.40); Red Cell Dist. Width 13.6 % (11.5-14.5); White Blood Cell Count 15.3 10^3/uL (4.8-10.8)
[2024-03-10 20:24] LABS: Lactic Acid 1.9 mmol/L (0.7-2.0)
--- NOTE | 2024-03-10 20:24 | ED.GENMED ---
Addendum entered and electronically signed by Sindy Wiley PA-C 03/15/24 11:37:
ED Provider Triage
-
Patient seen by provider in Triage?: Seen in Triage
Attestation: A medical screening examination has been initiated by a qualified medical provider. Based on the assessment performed at this time, it has been determined that an emergent medical condition may exist and the patient has been informed
that further medical evaluation and possible additional diagnostic testing may be needed.
HPI: 78yoF here with leukocytosis noted on outpatient labs. Recent hospitalizations for recurrent diverticular abscess. Today was last dose of Augmentin. WBC 16 as an outpatient. C/o worsening abd pain.
GENERAL: Alert , in no apparent distress
EYE: No visual abnormalities.
NECK: Trachea midline
ENT: No visible abnormalities.
LUNGS: No acute respiratory distress
NEUROLOGICAL: Alert and oriented
SKIN: Skin intact. No visible changes.
MUSCULOSKELETAL: Moving extremities normally
PSYCH: Normal and appropriate interaction.
This is a medical evaluation conducted in person to initiate diagnostic evaluation and provide initial therapeutics. Please see further documentation by the treating clinician.
CBC, CMP, lactate, and CT abdomen with PO/IV contrast ordered.
Original Note:
History of Present Illness
General
Chief Complaint: Abnormal Lab Value
Source: patient
Exam Limitations: none
Time Seen by Provider: 03/10/24 19:33
History of Present Illness
History of Present Illness:
This is a 78 year old female that comes in with c/o abnormal labs. States that she has an abdominal wall abscess that has been drained twice. States that she has blood work done on Thursday and her PCP called her today and told her to come to the ER
as her WBC were elevated. States that she just finished Augmentin yesterday. States that she was here in the hospital 2 weeks ago. States that she has had diarrhea. Denies any fever, chills, chest pain, SOB, abd pain, nausea, vomiting, headache,
dizziness, urinary burning.
Past History
Past History
ED Past Medical History: Arrthythmia (Atrial fib), CHF, GERD, HTN and Other (pelvic abscess status post drainage November 2023, abd wall abscess, diverticulosis, IBS, Glaucoma, )
ED Past Surgical History: Cholecystectomy and Gynecological (Fallopian tube abscesss)
Social History
Tobacco: Former smoker
Alcohol: Occasional
Drug: None
Personal:
Living: with family
Review of Systems
Review of Systems
All Other Systems: ROS reviewed and negative except as documented in HPI and ROS
Constitutional: Reports no symptoms; Denies fever or chills
EENT: Reports no symptoms
Respiratory: Reports no symptoms; Denies cough or trouble breathing
Cardiac: Reports no symptoms; Denies chest pain
ABD/GI: Reports diarrhea; Denies abdominal pain, nausea or vomiting
: Reports no symptoms; Denies dysuria, frequency or urgency
Musculoskeletal: Reports no symptoms
Skin: Reports no symptoms
Neurological: Reports no symptoms; Denies dizzy or headache
Psychiatric: Reports no symptoms
Phy Exam
General Physical Exam
General Presentation: no apparent distress
General age: appears stated age
General Skin: warm and dry
General Habitus: elderly
General Mental: alert
General Hydration: dry mucous membranes
ENT Exam
ENT Exam: TM's normal, pharynx normal and neck supple
Eye Exam
Eye Exam: EOMI
Cardiovascular Exam
Cardiovascular Exam: regular rate/rhythm, no edema and normal peripheral pulses
Pulmonary Exam
Pulmonary Exam: lungs clear, no respiratory distress, no rales, chest non tender, no crackles, no rhonchi, no wheezing and no cough
Gastrointestinal Exam
Gastrointestinal Exam: normal bowel sounds, soft, no organomegaly, no pulsatile mass, non distended and tender (Left sided abd tenderness with palpation)
Musculoskeletal Exam
Musculoskeletal Exam: full ROM and no edema
Skin Exam
Skin Exam: normal color, warm/dry, no rash and no petechia
Psychiatric Exam
Psychiatric Exam: normal mood/affect
Course
Orders/Labs/Results
Orders:
Orders
03/10/24 18:37
CT Abd/pel W Iv And Oral Contr Urgent
Comment:
Reason For Exam: LLQ pain, hx of diverticular abscess
Iohexol [Omnipaque] See Protocol PO NOW STA
03/10/24 20:05
Complete Blood Count/With Diff Urgent
Comprehensive Metabolic Panel Urgent
Lactate Level [Lactic Acid] Urgent
03/10/24 20:24
0.9% Sodium Chloride 500 ml [Nss] 500 ml IV BOLUS
Abnormal Lab Results
03/10/24
20:05
WBC 15.3 H 10^3/uL
(4.8-10.8)
MPV 11.4 H fL
(7.4-10.4)
Abs Immat Gran (auto) 0.2 H 10^3/uL
(0-0.05)
Absolute Neuts (auto) 11.6 H 10^3/uL
(1.4-6.5)
Absolute Monos (auto) 1.5 H 10^3/uL
(0.1-0.6)
Immature Gran % 1.0 H %
(0-0.5)
Neutrophils % 76.0 H %
(42.2-75.2)
Lymphocytes % 12.6 L %
(20.5-51.1)
Monocytes % 9.5 H %
(1.7-9.3)
Sodium 128 L mmol/L
(135-145)
Potassium 3.0 L mmol/L
(3.5-5.1)
Chloride 87 L mmol/L
(98-107)
AST 42 H U/L
(14-36)
Total Protein 6.1 L g/dl
(6.3-8.2)
03/10/24 20:05
03/10/24 20:05
Leukocytosis, Hyponatremia , Hypokalemia, Chloride low. AST mildly elevated. Total protein slightly low. lactic acid 1.9
Vital Signs
Initial and Last Documented VS:
Initial Vital Signs
Temp Pulse Resp BP Pulse Ox
98.5 F 54 18 144/68 98
03/10/24 18:32 03/10/24 18:32 03/10/24 18:32 03/10/24 18:32 03/10/24 18:32
Last Documented Vital Signs
Temp Pulse Resp BP Pulse Ox
98.5 F 63 18 182/85 96
03/10/24 18:32 03/10/24 20:07 03/10/24 20:07 03/10/24 20:00 03/10/24 20:30
MDM/Problems Addressed
Differential Diagnosis Includes:
Abd wall abscess
MDM/Problems Addressed:
This is a 78 year old female that was here 2 weeks ago with an abd wall abscess. states that this was drained twice. Patient just finished Augmentin yesterday. States that she had blood work done on Thursday and she was called today and told that her
WBC are elevated.
Will check labs and get CT scan. Will give IV fluids. Patient refused pain medication at this time.
Back into see patient and family. Explained that her abscess has gotten larger and that the patient will be admitted. Will start IV antibiotics and put Colorectal on Consult. Hospitalist notified.
Chronic conditions affecting care:
abd wall abscess
Acute Exacerbation and/or Progression of Chronic Illness:
Abdominal wall abscess.
*Radiology
Radiology exam reviewed: radiology read reviewed (CT-6.5X 7 X 6.5 cm multilocular peridiverticular abscess along the left lateral margin of the sigmoid colon is increased in size when compared with the 02/23/2024 examination. Nonurgent findings
include: Cholecystectomy, Atherosclerosis, renal cyst multilevel lumbar degenerative disc disease. )
*Pulse Oximetry
Patient hypoxic: no
*EKG
Interpreted by ED Provider?: NA
Rate: EKG- N/A
*Assistant Principal Interpretation
Rate: Assistant Principal- N/A
*Critical Care Note
Total Time (30-74mins, 75-104mins- exclusive of procedures): Not Applicable
ED Attending Note
-
Portions of this chart may have been created with voice recognition software.� Occasional wrong word or��sound alike� substitutions may have occurred due to the inherent limitations of voice recognition software.
Discharge Plan
Departure
Patient Disposition: Admit
Date of Disposition: 03/10/24
Time of Disposition: 22:18
Admit to: Med/Surg
Presentation/result/management discussed w/ accepting MD/DO: Hospitalist
Patient with high blood pressure during this ER visit?: Yes
Condition: Good
Covid-19: Not Applicable
Discharge Problem:
Peridiverticular abscess, Acute hyponatremia
Prescriptions:
No Action
enalapril maleate 20 mg Tablet
40 mg PO DAILY
loperamide 2 mg Tablet
2 mg PO BIDPRN PRN (Reason: diarrhea )
timolol maleate 0.5 % Gel Forming Solution
1 drp BOTH EYES DAILY
cholecalciferol (vitamin D3) [Vitamin D3] 50 mcg (2,000 unit) Tablet
50 mcg PO MOTUWETHFR
Lumigan 0.01 % Drops
1 drp BOTH EYES HS
Eliquis 5 mg Tablet
5 mg PO BID Qty: 60 0RF
Culturelle 10 billion cell Capsule
1 cap PO DAILY
spironolactone 25 mg Tablet
25 mg PO DAILY 30 Days Qty: 30 0RF
acetaminophen [Tylenol Extra Strength] 500 mg Tablet
1,000 mg PO Q6HPRN PRN (Reason: mild pain)
fluoxetine 20 mg Capsule
20 mg PO DAILY
furosemide 20 mg tablet
20 mg PO MOWEFR
amoxicillin-pot clavulanate 875-125 mg Tablet
1 tab PO Q12 Qty: 19 0RF
Rx Instructions:
Last day of antibiotics 03/10/24
fluconazole 200 mg Tablet
400 mg PO DAILY 9 Days Qty: 18 0RF
Rx Instructions:
Last day of antifungal 03/10/24
Referrals:
Prince Maldonado MD [Family Provider] -
Interventions
Interventions:
*Risk Screen - Suicide Last Done: 03/10/24 18:32
*General Assessment Last Done: 03/10/24 18:32
*Neglect/Abuse Screening Last Done: 03/10/24 18:32
ED- Fall Risk Assessment Last Done: 03/10/24 20:08
*ED COVID-19 Vaccine History Last Done: 03/10/24 18:32
Discharge Date and Time
Print Language: CHADIAN
[2024-03-10 20:33] LABS: ALT (SGPT) 20 U/L (0-35); AST (SGOT) 42 U/L (14-36); Albumin 3.6 g/dl (3.5-5.0); Alkaline Phosphatase 88 U/L (38-126); Blood Urea Nitrogen 16 mg/dl (7-17); Calcium 9.3 mg/dl (8.4-10.2); Carbon Dioxide 27 mmol/L (22-30); Glucose 94 mg/dl (70-99); Total Protein 6.1 g/dl (6.3-8.2); eGFR > 60.00
[2024-03-10] MEDS: NSS 500 IV (20:40)
[2024-03-10 20:43] LABS: % Basophils 0.5 % (0-2); % Eosinophils 0.4 % (0-6); % Lymphocytes 12.6 % (20.5-51.1); % Monocytes 9.5 % (1.7-9.3); Absolute Basophils 0.1 10^3/uL (0-0.2); Absolute Eosinophils 0.1 10^3/uL (0-0.7); Absolute Immature Granulocytes 0.2 10^3/uL (0-0.05); Absolute Lymphocytes 1.9 10^3/uL (1.2-3.4); Absolute Monocytes 1.5 10^3/uL (0.1-0.6); Absolute Neutrophils 11.6 10^3/uL (1.4-6.5); Nucleated Red Blood Cells % 0 %
[2024-03-10 20:49] LABS: Chloride 87 mmol/L (98-107); Sodium 128 mmol/L (135-145)
[2024-03-10 22:02] VITALS: BP 155/74
[2024-03-10 22:12] VITALS: BP 174/69
[2024-03-10] MEDS: LEVAQUIN 100 IV (22:23)
--- NOTE | 2024-03-10 22:47 | HPS.HSE ---
Family Physician
-
Family Physician: Prince Maldonado
Chief Complaint
-
Lower abdominal pain, fatigue, leukocytosis
History of Present Illness
This is an 78-year-old female with past medical history significant for hypertension, atrial fibrillation, diverticular abscess coming from home with leukocytosis and abdominal pain.
Patient was recently admitted for evaluation of left lower quadrant pain and increased WBCs. She had a multiloculated collection centered within the left adnexa which abuts the sigmoid colon likely represents a large pericolonic or diverticular
abscess. They could not eliminate the potential for a ovarian cyst. Patient seen by infectious disease as well as colorectal. She was treated with empiric Zosyn and micafungin initially. Interventional radiology attempted aspiration of the left
ovarian abscess which produced serosanguineous fluid. No growth till date on cultures. Blood cultures have been negative as well. Leukocytosis improving improved she was afebrile and was discharged on Augmentin and Diflucan to complete course
today. Patient was seen at primary care's office on Thursday. At that time CBC was drawn. Today a result of the CBC was noted to show markedly increased leukocytosis. Patient herself reports left lower quadrant pain. She reports anorexia. She
also reports some indigestion/GERD symptoms and a mild nonproductive cough. She is recently started on omeprazole 40 symptoms. She denies vomiting. She reports frequent loose stools of about 4-5 times daily. She denied watery diarrhea. She
denied any urinary symptoms. She denies any lower extremity swelling or orthopnea or PND. Family reports that she has been restarted on antihypertensives and her blood pressure has been elevated. They denied any fevers at home.
In the emergency department he was afebrile, blood pressure was 170/70 and she was nontachycardic. White count was 15,000. Hemoglobin and platelets were within normal limits. Her sodium is down to 128 with a potassium of 3.0. BUN/creatinine with
normal [address] of the abdomen pelvis showed a 6.5 x 7 x 6.5 peridiverticular abscess along the sigmoid colon which is increased from prior.
Medical History
Past Medical History
Past Medical History: Reports Arrhythmia (atrial fibrillation), CHF and HTN
Additional Past Medical History:
Peridiveticular fluid collection/abscess since November 2023.
Past Surgical History: Reports Gynocological
Social History
Tobacco: Former Smoker
Alcohol: None
Drug: None
Personal: Single
Living: With Family
Employment: Retired
Family History
Family History: Not pertinent
Allergies / Home Medications
Allergies reflects when Allergies were last updated in [facility].
Home Medications with original date entered in [facility]
Allergy/Medication List:
Allergies
Allergy/AdvReac Type Severity Reaction Status Date / Time
amlodipine Allergy Unknown Verified 02/26/24 16:44
lisinopril Allergy abdominal Verified 02/23/24 18:24
cramping
unknown drug Allergy Unknown Uncoded 02/23/24 18:24
Home Medications
bimatoprost 0.01 % eye drops (Lumigan) 1 drp BOTH EYES HS eye condition 12/08/23
cholecalciferol (vitamin D3) 50 mcg (2,000 unit) tablet (Vitamin D3) 50 mcg PO MOTUWETHFR supplement 12/08/23
enalapril maleate 20 mg tablet 40 mg PO DAILY blood pressure 12/08/23
loperamide 2 mg tablet 2 mg PO BIDPRN PRN diarrhea 12/08/23
timolol maleate 0.5 % eye gel forming solution 1 drp BOTH EYES DAILY eye condition 12/08/23
apixaban 5 mg tablet (Eliquis) 5 mg PO BID #60 tabs 12/14/23
Lactobacillus rhamnosus GG 10 billion cell capsule (Culturelle) 1 cap PO DAILY Supplement 12/17/23
spironolactone 25 mg tablet 25 mg PO DAILY 30 days #30 tabs 12/21/23
acetaminophen 500 mg tablet (Tylenol Extra Strength) 1,000 mg PO Q6HPRN PRN mild pain 02/23/24
fluoxetine 20 mg capsule 20 mg PO DAILY 02/23/24
furosemide 20 mg tablet 20 mg PO MOWEFR 02/23/24
amoxicillin 875 mg-potassium clavulanate 125 mg tablet 1 tab PO Q12 #19 tabs 03/01/24
fluconazole 200 mg tablet 400 mg (2 x 200 mg) PO DAILY 9 days #18 tabs 03/01/24
Review of Systems
-
History Source: Patient and Family
Constitutional: Reports Weight Loss and Fatigue
EENT: Reports No Symptoms
Respiratory: Reports Cough
Cardiac: Reports No Symptoms
Abdomen/GI: Reports Abdominal Pain and Other (heart burn, frequent small stools)
: Reports No Symptoms
Musculoskeletal: Reports No Symptoms
Skin: Reports No Symptoms
Neurological: Reports No Symptoms
Endocrine: Reports No Symptoms
Hematologic/Lymphatic: Reports No Symptoms
Psych: Reports No Symptoms
Physical Exam
Vital Signs
Vital Signs
Temp Pulse Resp BP Pulse Ox
98.5 F 78 18 155/74 98
03/10/24 18:32 03/10/24 22:02 03/10/24 22:02 03/10/24 22:02 03/10/24 22:02
Physical Exam
General: Comfortable and Poor Appetite
HEENT: NormoCephalic, Anicteric, Moist mucous membranes and Atraumatic
Respiratory: Clear
Cardiac: S1/S2 and Irregular Rhythm
Breast: Deferred by me
GI: Soft, Non Tender, Non Distended and Normal Bowel Sounds
Rectal: Deferred by Provider
Genito-urinary: Deferred by me
Musculoskeletal: No Clubbing, No Cyanosis and No Edema
Skin: Warm
Neuro: AO x 3
Hematologic/Lymphatic: No Lymphadenopathy
Psych: Calm
Laboratory Results
-
03/10/24 20:05
03/10/24 20:05
Laboratory Results
Lactic Acid 1.9 mmol/L (0.7-2.0) 03/10/24 20:05
Total Bilirubin 1.0 mg/dl (0.2-1.3) 03/10/24 20:05
AST 42 U/L (14-36) H 03/10/24 20:05
ALT 20 U/L (0-35) 03/10/24 20:05
Alkaline Phosphatase 88 U/L (38-126) 03/10/24 20:05
Data Reviewed
-
CT Scan: Report Reviewed by me
Lab Data: Labs Reviewed by me
Old Records: Reviewed
Impression/Plan
-
IMPRESSION:
78 y.o female comes in with leukocytosis and abdominal pain, found to have recurrent peridiverticular abscess along the sigmoid colon.
PLAN:
1. Peridiverticular abscess - Persistent peridiverticular abscess s/p temporary drainage on last admission and s/p Augmentin and diflucan course (to end 03/10). Recurrent leukocytosis starting about 4 days ago. No fevers chills. No other signs of
active infection. Pain and loose stools but no tenderness to palpation. She is non-toxic but looks generally fatigued.
- admit to telemetry given h/o afib and chf
- NPO for now except sips and oral mes
- blood cultures if febrile
- will place on zosyn for now
- ID consultation
- colorectal consultation
2. Hyponatremia/Hypokalemia - Na 128. No acute symptoms. She is prone to low sodium with dehydration. She has been on lasix with about a 30 Ib weight loss since initiation. She is also on aldactone. Low PO intake on history and also on prozac.
Dry oral mucosa, no evidence of volume overload at this point.
- hold lasix for now
- gentle hydration w/ D5 NS + 40 KCl at 75 ml/hr
- check urine osm and Na and
- she is NPO, restricted free water.
3. HTN - Hypertensive today and has been at home per family. Compliant with meds
- enalapril 40
- spironolactone 25
- metoprolol
4. AFIB -
- hold apixaban pending colorectal eval
- continue metoprolol for rate control
5. GERD/Cough- dry cough, reflux symptoms, suspect GERD related UACS.
- ppi iv daily for now
6. Aspiration - Family reports aspiration with textured food but not liquids or soft foods and is tolerating oral meds
- npo for now
- swallow eval in am
DVT PPX - lovenox sq
Code status - full code
[2024-03-10 23:12] VITALS: BP 177/69
[2024-03-10] MEDS: FLAGYL 500 MG 100 IV (23:32)
[2024-03-11] VITALS (10 sets, daily range): BP systolic 60–188; BP diastolic 48–76; BMI 25.0
[2024-03-11] MEDS: ZOFRAN 4 MG IV (00:14)
[2024-03-11] MEDS: XANAX 0.25 MG PO ×2 (00:41→10:21)
[2024-03-11] MEDS: D5/0.9% with KCL 40 MEQ 1000 IV ×2 (01:08→13:19)
[2024-03-11 02:47] LABS: Osmolality Urine 235 mOsm/kg (300-900)
[2024-03-11 02:49] LABS: Urine Sodium 19 mmol/L (30-90)
--- NOTE | 2024-03-11 02:51 | PTCARENOTE ---
Patient arrived from the ED via stretcher at approximately 0045. Patient pulled over from stretcher to bed x2 assist. Patient AAOx3, drowsy and forgetful. VSS as documented. Assessment as documented. Patient oriented to room. Bed in lowest position.
Call parrish within reach.
[2024-03-11] MEDS: ZOSYN 50 IV (05:41)
[2024-03-11 07:09] LABS: Hematocrit 30.7 % (37.0-47.0); Hemoglobin 10.7 g/dL (12.0-16.0); Mean Corp Hgb Conc. 34.9 g/dL (33.0-37.0); Mean Corpuscular Hgb 29.8 pg (27.0-31.0); Mean Corpuscular Volume 85.5 fL (81.0-99.0); Red Blood Cell Count 3.59 10^6/uL (4.20-5.40); Red Cell Dist. Width 13.6 % (11.5-14.5); White Blood Cell Count 9.3 10^3/uL (4.8-10.8)
[2024-03-11 07:15] LABS: Blood Urea Nitrogen 11 mg/dl (7-17); Calcium 8.3 mg/dl (8.4-10.2); Carbon Dioxide 27 mmol/L (22-30); Chloride 96 mmol/L (98-107); Estimated Creatinine Clearance 53 ml/min; Glucose 103 mg/dl (70-99); Magnesium 1.5 mg/dl (1.6-2.3); Sodium 132 mmol/L (135-145); eGFR > 60.00
[2024-03-11 08:18] LABS: Mean Platelet Volume 11.7 fL (7.4-10.4)
[2024-03-11 08:19] LABS: Platelet Count 259 10^3/uL (130-400)
--- NOTE | 2024-03-11 08:23 | W.PN.HOSP.TC ---
Today's Communication/Plan
-
see bold
Assessment / Plan
Assessment / Plan
78 y.o female comes in with leukocytosis and abdominal pain, found to have recurrent peridiverticular abscess along the sigmoid colon.
PLAN:
1. Peridiverticular abscess - Persistent peridiverticular abscess s/p temporary drainage on last admission and s/p Augmentin and diflucan course (to end 03/10). Recurrent leukocytosis starting about 4 days ago. No fevers chills. No other signs of
active infection. Pain and loose stools but no tenderness to palpation. She is non-toxic but looks generally fatigued.
- NPO for now except sips and oral mes
- Appreciate ID and colorectal surgery input, recommend drainage by IR
- ID recommends treatment with Levaquin, Flagyl, micafungin
- Follow-up blood cultures, abdominal abscess cultures
2. Hyponatremia/Hypokalemia
- Na 128. No acute symptoms. She is prone to low sodium with dehydration. She has been on lasix with about a 30 Ib weight loss since initiation. She is also on aldactone. Low PO intake on history and also on prozac. Dry oral mucosa, no
evidence of volume overload at this point.
- hold lasix for now
- gentle hydration w/ D5 NS + 40 KCl at 75 ml/hr
- urine osmolality and urine sodium reviewed, suspect hypovolemic hyponatremia
- Na improved, K still low
- Continue IV fluids with potassium chloride, give additional K rider today
3. HTN - Hypertensive today and has been at home per family. Compliant with meds
- enalapril 40
- spironolactone 25
- metoprolol
- BP uncontrolled, add hydralazine 75 mg 3 times daily 03/11
4. AFIB -
- hold apixaban pending colorectal eval
- continue metoprolol for rate control
5. GERD/Cough
- dry cough, reflux symptoms, suspect GERD related UACS.
- ppi iv daily for now
6. Aspiration
- Family reports aspiration with textured food but not liquids or soft foods and is tolerating oral meds
- Barium swallow negative except for decreased esophageal motility
- Consult SPL
DVT PPX - lovenox sq
Code status - full code
Total time spent to see the patient on the floor, examine the patient, review data and lab results, discuss treatment plan with patient, nursing staff around 51 minutes.
Physical Exam
General: No acute distress
HEENT: Normocephalic, Atraumatic, EOMI, MMM
Respiratory: Clear to Auscultation bilaterally
Cardiac: Normal S1/S2, Regular Rate and Rhythm
GI: Soft, tender at the left lower quadrant, Nondistended, Normal Bowel Sounds
Extremities: No Clubbing, Cyanosis, or Edema
Neuro: Nonfocal/Grossly Intact
Psych: Calm, Cooperative
Derm: No Visible lesions
Anticipated Discharge: > 48 hours
Subjective/Interval History
-
Date of Service: March 11, 2024
Patient complains of left lower quadrant abdominal pain, 7 out of 10 in intensity. She has loose stools. No nausea, no vomiting. No fever.
Objective Data
-
Labs:
Laboratory Results
03/10/24 03/11/24
20:05 06:02
WBC 9.3
Hgb 10.7 L
Hct 30.7 L
Plt Count 259 D
Sodium 128 L 132 L
Potassium 3.0 L 3.0 L
Chloride 87 L 96 L
Carbon Dioxide 27 27
BUN 16 11
Creatinine 0.9 0.7
Glucose 94 103 H
Calcium 9.3 8.3 L
Total Bilirubin 1.0
AST 42 H
ALT 20
Alkaline Phosphatase 88
Vital Signs:
Vital Signs
Temp Pulse Resp BP Pulse Ox
97.8 F 57 14 175/69 98
03/11/24 03:49 03/11/24 03:49 03/11/24 03:49 03/11/24 03:49 03/11/24 03:49
I&O
03/10/24 03/11/24 03/12/24
06:59 06:59 06:59
Intake Total 500 / 500
Balance 500 / 500
--- NOTE | 2024-03-11 09:09 | CON.ID ---
Addendum entered and electronically signed by Alethea Enriquez MD 03/11/24 14:37:
I personally performed a history and physical exam of the patient and discussed management with the resident. I reviewed the resident's note and agree with the documented findings and plan of care HPI/CC with the following additions/corrections:
Ms Huggins is an 78 year old female with history of IBS who first presented here 12/11 for a 3 week history of LLQ pain for about 3 weeks she was found to have a left adnexal abscess, no colon inflammation, suspicious for hydrosalpinx, started on
vancomycin and Zosyn. Then, December 08, IR placed drain with 10 cc of green fluid sent for culture ultimately growing C koseri, K pneumoniae, and VGS. Pathology also sent and negative cytology for malignant cells. December 10, Ob-admission nurse coordinator attempted
endometrial curettage (not completed due to inability to dilate cervix) but were successful with endometrial biopsy. Path was notable for polyp but no other atypical cells. Genital culture negative for gonorrhoea grew usual robles, anaerobic culture
also sent and negative. She reports no sexual activity for the past 5 years. No history of diverticulitis. Transitioned to Unasyn. She was diagnosed with L TOA and repeat CT showed decreased size down to 1.9 cm, drain removed by IR. she was
discharged with augmentin 875 to complete 14 more days from 12/13 - 12/26 . She represented here 02/24 with recurrent diverticular abscess 7.4 x 5.6 x 5.6 cm centered within the left adnexa, aspiration was attempted and no fluid was obtained, the
adjacent fallopian tube was aspirated for culture and cultures were negative, she developed sepsis while on zosyn which resolved with the addition of micafunin. She was discharged with a course of augmentin and flucanzole which was to be continued
until yesterday (18 days) however with progressive ftaigue, letheragy and abdominal pain and found to have progression of abscess.
Pelvic Abscess - suspect diverticular abscess with secondarily involved TOA
- plan for repeat attempt at aspiration today with drain placement - if not successful then would consider moving up surgery
- given size of abscess, antibiotics alone without drainage may temporize but unable to cure the infection
- if aspiration obtained please send for aerobic and anaerobic cultures
- patient has previously been on multiple courses of unasyn, zosyn, augmentin, micafungin and fluconazole
- initially though to switch to ertapenem, however, given rapid improvement in leukocytosis on levaquin metronidazole, feel it would be reasonable to continue with that
- will continue micafungin
- trend inflammatory markers today and thursday
AW
Original Note:
Consultation
-
Date/Time Consultation Requested: 03/11/2024, 00:49 AM
Date/Time Consultation Performed: 03/11/2024, 9:09 AM
Requesting Provider: Filemon Jimenes MD
Performing Provider: Denisha Jason MD for Alethea Enriquez MD
Reason for Consultation: Diverticular abscess.
Chief Complaint / Past History
Chief Complaint
Fatigue, lethargy, loss of appetite and lower abdominal pain.
History of Present Illness
78-year-old female previously known to ID consult service for pelvic/diverticular abscess, attempted IR drain about 10 days ago, treated on Unasyn and Zosyn, micafungin which were then switched to oral Augmentin and fluconazole for a duration of 10
days on date of discharge which is 03/01/2024 presented to the hospital for fatigue, lethargy, and lower abdominal pain x 6 to 7 days. After discharge on 03/01/2024, she was doing fine for the first few days and eventually started developing loss of
appetite that gradually became worse. Patient stated that she eventually started feeling lethargic, fatigue, and crampy lower abdominal pain which is 4/10 in intensity, nonradiating. Her abdominal pain is associated with loose stools, 2-3 episodes
in 1 to 2 hours, [place] stool scale 5/6.
She saw her primary care few days ago who got a blood workup on her and she was sent to the ER due to elevated white blood cell count at 16,000, and hyponatremia.
Upon arrival to the emergency room,She was afebrile and her vital signs were stable, her laboratory showed leukocytosis with left shift-WBC count at 15.3, that resolved in the a.m. today-9.3, hemoglobin 12.9, dropped down to 10.7-normocytic anemia,
her chemistry showed hyponatremia-serum sodium 1 28-1 32 on 03/11, serum potassium 3 on 03/10, 03/11, magnesium-1.5, elevated AST at 42.
She denies having accompanied fevers, chills, cough, sputum production, dysuria, frequency, blood or mucus in her stool, change in bladder habits, nausea, vomitings, chest pain, SOB.
Past History
Past Medical History: Other (arrhythmia (atrial fibrillation), CHF and HTN)
Past Surgical History: Other (Peridiverticular abscess drainage-November 2023, endometrial biopsy-December 2023.)
Allergy History:
amlodipine Adverse Reaction (Verified 03/10/24 23:23)
stomach cramps
lisinopril Adverse Reaction (Verified 03/10/24 23:23)
abdominal cramping
unknown drug Allergy (Uncoded 02/23/24 18:24)
Unknown
Medications Reviewed: Yes
Social History
Tobacco: Non-Smoker
Alcohol: Occasional
Drug: None
Personal:
Living: With Family
Employment: Retired
Family History
Family History: Not Pertinent
Review of Systems
Review of Systems
General: Change in Appetite; Negative Fever or Chills
Cardiovascular: Negative Chest Pain, Dyspnea or Palpitations
Respiratory: Negative Dyspnea, Cough, Hemoptysis or Sputum Production
Gasteroenterology: Diarrhea and Other (Cramping abdominal pain.); Negative Weight Loss, Nausea or Vomiting
Endocrine: Negative Weakness or Fatigue
Vital Signs
Temp Pulse Resp BP Pulse Ox
98.2 F 57 16 174/66 97
03/11/24 07:25 03/11/24 07:25 03/11/24 07:25 03/11/24 07:25 03/11/24 07:25
Physical Exam
Physical Exam
Constitutional: Comfortable
Eyes: Pupils Equal
Cardiovascular: Regular Rate and S1/S2; Negative Murmur, Rub or Gallop
Pulmonary: Clear; Negative Wheezes, Rales or Rhonchi
Gastrointestinal: Soft and Tender (in the RLQ and LLQ); Negative Non Distended or Normal Bowel Sounds
Extremities: Negative Edema
Skin: Warm
Neurological: Awake
Psychological: Calm
Lab / Diagnostic Study Results
03/11/24 06:02
03/11/24 06:02
Abs Immat Gran (auto) 0.2 10^3/uL (0-0.05) H 03/10/24 20:05
Absolute Neuts (auto) 11.6 10^3/uL (1.4-6.5) H 03/10/24 20:05
Absolute Lymphs (auto) 1.9 10^3/uL (1.2-3.4) 03/10/24 20:05
Absolute Monos (auto) 1.5 10^3/uL (0.1-0.6) H 03/10/24 20:05
Absolute Basos (auto) 0.1 10^3/uL (0-0.2) 03/10/24 20:05
Immature Gran % 1.0 % (0-0.5) H 03/10/24 20:05
Neutrophils % 76.0 % (42.2-75.2) H 03/10/24 20:05
Lymphocytes % 12.6 % (20.5-51.1) L 03/10/24 20:05
Monocytes % 9.5 % (1.7-9.3) H 03/10/24 20:05
Eosinophils % 0.4 % (0-6) 03/10/24 20:05
Basophils % 0.5 % (0-2) 03/10/24 20:05
Lactic Acid 1.9 mmol/L (0.7-2.0) 03/10/24 20:05
Microbiology Results
Micro:
CT abdomen/pelvis-03/10/2024-
IMPRESSION:
1). 6.5 x 7 x 6.5 cm multilocular peridiverticular abscess along the left lateral margin of the sigmoid colon is increased in size when compared with the 02/23/2024 examination
2). Nonurgent findings include:
-Cholecystectomy
-Atherosclerosis
-Renal cysts
Multilevel lumbar degenerative disc disease
Barium swallow x-ray-03/11/2024-
IMPRESSION:
No architectural abnormalities.
Gastroesophageal reflux to the level of the maria r
Decreased esophageal motility
Assessment / Plan
Assessment-
Subjective-loss of appetite, fatigue, lethargy, cramping abdominal pain, loose stools.
Objective-afebrile, vital signs stable,Hb-12.9 -10.7, WBC-leukocytosis with left shift-15.3, platelet count-259, chemistry-serum [id number], serum potassium-3 hypokalemia, serum magnesium-1.5,-hypomagnesemia, total bilirubin-1, AST 42.
CT abdomen pelvis-1). 6.5 x 7 x 6.5 cm multilocular peridiverticular abscess along the left lateral margin of the sigmoid colon is increased in size when compared with the 02/23/2024 examination
Diagnosis-diverticular abscess.
Plan-
Start patient on Ertapenem 1000 mg once a day and micafungin 100 mg once a day.
Told IR drain during prior hospital admission.
Patient may require surgery in case she fails the drain this time as well.
Not considered as antibiotic failure but considered as poor source control.
[2024-03-11] MEDS: KCL 260 MEQ IV (09:13)
[2024-03-11] MEDS: NSS (PRESERVATIVE FREE) 10 ML IV (09:14)
[2024-03-11] MEDS: VASOTEC 40 MG PO (09:14)
[2024-03-11] MEDS: PROTONIX IV 40 MG IV (09:14)
[2024-03-11] MEDS: LOPRESSOR 12.5 MG PO ×2 (09:15→20:49)
[2024-03-11] MEDS: PROZAC 20 MG PO (09:15)
[2024-03-11] MEDS: ALDACTONE 25 MG PO (09:15)
[2024-03-11] MEDS: TIMOPTIC 0.5% OPHTHALMIC SOLUTION 1 DROP BOTH EYES (09:16)
[2024-03-11] MEDS: DESENEX/MITRAZOL/ZEASORB 1 APPLIC TOPICAL ×2 (09:16→20:50)
[2024-03-11] MEDS: IMODIUM 2 MG PO (10:21)
[2024-03-11] MEDS: TYLENOL 650 MG PO ×2 (11:07→22:47)
[2024-03-11] MEDS: ZOSYN IV (11:09)
--- NOTE | 2024-03-11 12:20 | CON.CRS ---
Consultation
-
Date/Time Consultation Requested: 03/10/2024, 22:47
Date/Time Consultation Performed: 03/11/2024, 10:05
Requesting Provider: Sabrina Roldan
Performing Provider: Jessee Mendoza MD
Reason for Consultation: pelvic abscess
Medical History
-
Chief Complaint: abdominal pain
History of Present Illness:
78-year-old female, well-known to our service, presents to the ER yesterday due to an elevated white blood cell count on outpatient labs and abdominal pain. The patient had recently been discharged on 03/01/2024. During that admission she was
diagnosed with a pelvic abscess, unclear etiology, possible diverticular versus adnexal and had an IR drainage with 10 cc removed. She was discharged to home on antibiotics and she was scheduled to have a joint surgery with gynecology and Dr. Griffith
on April 01. She presented to the ER with a WBC of 15.3. Today her white count is 9.3. She has remained afebrile. CT performed in the ER shows a 6.5 x 7 x 6.5 cm multilocular peridiverticular abscess along the left lateral margin of the
sigmoid colon which is increased in size since 02/23/2024. The patient currently states that she has some left lower quadrant pain which is new for her as she was asymptomatic during her prior admission. She otherwise has no complaints. We have
been consulted for further surgical opinion.
Past Medical History
Past Medical History: Other (Arrhythmias (Atrial fibrillation), HTN and Other (Chronic kidney disease, glaucoma))
Past Surgical History: Other (Cholecystectomy and Other (L Pelvic Abscess Drainage, Endometrial Biopsy))
Social History
Tobacco: Former Smoker
Alcohol: Occasional
Drug: None
Family History
Family History: Reviewed & Not Pertinent
Allergies / Home Medications
Allergy/AdvReac Type Severity Reaction Status Date / Time
amlodipine AdvReac stomach Verified 03/10/24 23:23
cramps
lisinopril AdvReac abdominal Verified 03/10/24 23:23
cramping
unknown drug Allergy Unknown Uncoded 02/23/24 18:24
�Medication �Instructions �Recorded �Confirmed �Type
bimatoprost 0.01 % eye drops 1 drp BOTH EYES HS eye condition 12/08/23 03/11/24 History
(Lumigan)
cholecalciferol (vitamin D3) 50 50 mcg PO MOTUWETHFR supplement 12/08/23 03/11/24 History
mcg (2,000 unit) tablet (Vitamin
D3)
enalapril maleate 20 mg tablet 20 mg PO BID blood pressure 12/08/23 03/11/24 History
loperamide 2 mg tablet 2 mg PO BIDPRN PRN diarrhea 12/08/23 03/10/24 History
timolol maleate 0.5 % eye gel 1 drp BOTH EYES DAILY eye condition 12/08/23 03/11/24 History
forming solution
apixaban 5 mg tablet (Eliquis) 5 mg PO BID #60 tabs 12/14/23 03/11/24 Rx
Lactobacillus rhamnosus GG 10 1 cap PO DAILY Supplement 12/17/23 03/11/24 History
billion cell capsule (Culturelle)
acetaminophen 500 mg tablet 1,000 mg PO Q6HPRN PRN mild pain 02/23/24 03/11/24 History
(Tylenol Extra Strength)
fluoxetine 20 mg capsule 20 mg PO DAILY Mental 02/23/24 03/11/24 History
Health/Anxiety
furosemide 20 mg tablet 20 mg PO MOWEFR Fluid 02/23/24 03/11/24 History
Retention/Swelling
alprazolam 0.25 mg tablet 0.25 mg PO TID PRN anxiety 03/10/24 03/10/24 History
metoprolol tartrate 25 mg tablet 12.5 mg PO BID Blood Pressure 03/10/24 03/11/24 History
omeprazole 40 mg capsule,delayed 40 mg PO QAC Gastrointestinal Issue 03/10/24 03/11/24 History
release
Review of Systems
-
History Source: Patient
Abdomen/GI: Abdominal Pain
A 10 point review of systems was completed, and was negative except as per HPI.
Physical Exam
Vital Signs
Temp 98.2 F 03/11/24 07:25
Pulse 57 03/11/24 09:15
Resp Rate 16 03/11/24 07:25
Blood pressure 174/66 03/11/24 09:15
SaO2 97 03/11/24 07:25
03/10/24 03/11/24 03/12/24
06:59 06:59 06:59
Actual Weight 64.047 kg
Body Mass Index (BMI) 25.0
Lab Results / Allergies
03/11/24 06:02
03/11/24 06:02
WBC 9.3 10^3/uL (4.8-10.8) 03/11/24 06:02
Hgb 10.7 g/dL (12.0-16.0) L 03/11/24 06:02
Hct 30.7 % (37.0-47.0) L 03/11/24 06:02
Plt Count 259 10^3/uL (130-400) D 03/11/24 06:02
Abs Immat Gran (auto) 0.2 10^3/uL (0-0.05) H 03/10/24 20:05
Neutrophils % 76.0 % (42.2-75.2) H 03/10/24 20:05
Allergy/AdvReac Type Severity Reaction Status Date / Time
amlodipine AdvReac stomach Verified 03/10/24 23:23
cramps
lisinopril AdvReac abdominal Verified 03/10/24 23:23
cramping
unknown drug Allergy Unknown Uncoded 02/23/24 18:24
Physical Exam
General: Well Developed, Well Nourished and No Apparent Distress
GI: Soft and Tender (LLQ - mild)
Skin: Warm and Dry
Neuro: AO x 3
Data Reviewed
-
CT Scan: Image Personally Visualized and interpreted, Report Reviewed by me and Discussed with Patient
Labs: Labs Reviewed by me, Discussed with Physician and Discussed with Patient
Old Records: Reviewed
Assessment / Plan
-
Assessment: 78-year-old female with a history of paracolonic abscess, unsure in origin, presents with abnormal lab work and abdominal pain and found to have a 6.5 x 7 x 6.5 cm multilocular peridiverticular abscess along the left lateral margin of
the sigmoid colon
Plan:
-No plans for surgery at this time. She is scheduled for April [address] Griffith and Dr. Hanks.
-Consulted IR for pelvic drain placement
-Continue IV antibiotics
-Advance diet to clears post IR
-Will follow
[2024-03-11] MEDS: INVANZ 60 MG IV (12:26)
[2024-03-11] MEDS: APRESOLINE 75 MG PO (13:17)
[2024-03-11] MEDS: MYCAMINE 105 MG IV (13:18)
--- NOTE | 2024-03-11 14:42 | CM ---
Reviewed the chart notes and spoke with the patient's son at the bedside. The patient patient was sleeping soundly. The patient resides with her nursing home partner in a split level home with four steps to enter via front door. The patient uses a
cane outside home. The patient is current with [facility] and would like to resume at discharge. Referral sent via [facility]. The patient's pharmacy of choice is the [facility]. CM continues to be available to patient/family and
is monitoring medical plan for needs at discharge.
Plan: Discharge hopefully to home with resumption of [facility].
[2024-03-11] MEDS: APRESOLINE PO ×2 (17:45→22:33)
--- NOTE | 2024-03-11 18:05 | PTCARENOTE ---
Pt arrived via stretcher from IR. This RN then received call from KEVIN Banks after pt arrived to floor. VSS at this time & pt offers no complaints. Pt has orders for bedrest for 3hrs. GRAHAM drain in L buttock draining scant sanguinous fluid. Lovenox
held per MD Do this evening. Clear Liquid diet in per MD as well. Call parrish within reach.
[2024-03-11] MEDS: LOVENOX SC (18:18)
[2024-03-11] MEDS: XALATAN OPHTHALMIC SOLUTION 1 DROP BOTH EYES (22:29)
[2024-03-12 03:00] VITALS: BP 151/57
--- NOTE | 2024-03-12 03:30 | PTCARENOTE ---
Patient having reduced output and difficulty voiding, feeling uncomfortable. She asked for a straight catheterization. Advised JENNFIER Gardner. OK to straight catheterize now per JENNIFER Gardner since she is uncomfortable. Orders received for straight catheter
algorithm for next 24 hours.
[2024-03-12 04:27] VITALS: BMI 25.4
[2024-03-12] MEDS: D5/0.9% with KCL 40 MEQ 1000 IV (05:49)
[2024-03-12] MEDS: FLAGYL 500 MG PO ×4 (06:24→23:18)
[2024-03-12] MEDS: XANAX 0.25 MG PO ×2 (06:28→20:25)
[2024-03-12 07:19] LABS: Hematocrit 30.9 % (37.0-47.0); Hemoglobin 10.7 g/dL (12.0-16.0); Mean Corp Hgb Conc. 34.6 g/dL (33.0-37.0); Mean Corpuscular Hgb 29.9 pg (27.0-31.0); Mean Corpuscular Volume 86.3 fL (81.0-99.0); Mean Platelet Volume 11.9 fL (7.4-10.4); Platelet Count 299 10^3/uL (130-400); Red Blood Cell Count 3.58 10^6/uL (4.20-5.40); White Blood Cell Count 8.1 10^3/uL (4.8-10.8)
[2024-03-12 07:55] LABS: Blood Urea Nitrogen 7 mg/dl (7-17); Calcium 8.5 mg/dl (8.4-10.2); Carbon Dioxide 25 mmol/L (22-30); Chloride 101 mmol/L (98-107); Estimated Creatinine Clearance 46 ml/min; Glucose 102 mg/dl (70-99); Magnesium 1.5 mg/dl (1.6-2.3); Phosphorus 2.8 mg/dl (2.5-4.5); Sodium 136 mmol/L (135-145); eGFR > 60.00
[2024-03-12 08:34] VITALS: BP 165/66
[2024-03-12] MEDS: VASOTEC 40 MG PO (08:41)
[2024-03-12] MEDS: LOPRESSOR 12.5 MG PO ×2 (08:42→20:05)
[2024-03-12] MEDS: PROZAC 20 MG PO (08:42)
[2024-03-12] MEDS: APRESOLINE 75 MG PO ×2 (08:43→23:14)
[2024-03-12] MEDS: LEVAQUIN 750 MG PO (08:43)
[2024-03-12] MEDS: ALDACTONE 25 MG PO (08:43)
[2024-03-12] MEDS: DESENEX/MITRAZOL/ZEASORB 1 APPLIC TOPICAL ×2 (08:44→20:06)
[2024-03-12] MEDS: NSS (PRESERVATIVE FREE) 10 ML IV (08:45)
[2024-03-12] MEDS: PROTONIX IV 40 MG IV (08:45)
[2024-03-12] MEDS: TIMOPTIC 0.5% OPHTHALMIC SOLUTION 1 DROP BOTH EYES (08:45)
[2024-03-12] MEDS: IMODIUM 2 MG PO (08:48)
[2024-03-12 09:05] LABS: Erythrocyte Sed Rate 36 mm/hour (0-20)
--- NOTE | 2024-03-12 09:08 | W.PN.HOSP.TC ---
Today's Communication/Plan
-
see bold
Assessment / Plan
Assessment / Plan
78 y.o female comes in with leukocytosis and abdominal pain, found to have recurrent peridiverticular abscess along the sigmoid colon.
PLAN:
1. Peridiverticular abscess with tubo-ovarian abscess, recurrent sigmoid diverticulitis
- Persistent peridiverticular abscess s/p temporary drainage on last admission and s/p Augmentin and diflucan course (to end 03/10). Recurrent leukocytosis starting about 4 days ago. No fevers chills. No other signs of active infection. Pain and
loose stools but no tenderness to palpation. She is non-toxic but looks generally fatigued.
- Appreciate ID and colorectal surgery input, status post drainage by IR 03/11, draining 10 mL of green purulent fluid -drain in place
- ID recommends treatment with Levaquin, Flagyl, micafungin. Gram stain shows gram-negative hilda, cultures pending
- Follow-up blood cultures, abdominal abscess cultures
- No plans for surgery at this time. She is scheduled for April [address] Griffith and Dr. Hanks.
2. Hyponatremia/Hypokalemia
- Na 128. No acute symptoms. She is prone to low sodium with dehydration. She has been on lasix with about a 30 Ib weight loss since initiation. She is also on aldactone. Low PO intake on history and also on prozac. Dry oral mucosa, no
evidence of volume overload at this point.
- hold lasix for now
- gentle hydration w/ D5 NS + 40 KCl at 75 ml/hr
- urine osmolality and urine sodium reviewed, suspect hypovolemic hyponatremia
- Repleted and resolved, cap IV fluids
3. HTN - Hypertensive today and has been at home per family. Compliant with meds
- enalapril 40
- spironolactone 25
- metoprolol
- BP improved with adding hydralazine 75 mg 3 times daily 03/11
4. AFIB -
- hold apixaban for now
- continue metoprolol for rate control
5. GERD/Cough
- dry cough, reflux symptoms, suspect GERD related UACS.
- ppi iv daily for now
6. Aspiration
- Family reports aspiration with textured food but not liquids or soft foods and is tolerating oral meds
- Barium swallow negative except for decreased esophageal motility
- Consult SPL
DVT PPX - lovenox sq while holding apixaban
Code status - full code
Total time spent to see the patient on the floor, examine the patient, review data and lab results, discuss treatment plan with patient, nursing staff around 50 minutes.
Physical Exam
General: No acute distress
HEENT: Normocephalic, Atraumatic, EOMI, MMM
Respiratory: Clear to Auscultation bilaterally
Cardiac: Normal S1/S2, Regular Rate and Rhythm
GI: Soft, tender at the left lower quadrant, Nondistended, Normal Bowel Sounds
+Abd drain with serosanguineous drainage
Extremities: No Clubbing, Cyanosis
Bilateral lower extremity edema noted
Neuro: Nonfocal/Grossly Intact
Anticipated Discharge: > 48 hours
Subjective/Interval History
-
Date of Service: March 12, 2024
Patient reports abdominal pain improved. No nausea, no vomiting. No fever.
Objective Data
-
Labs:
Laboratory Results
03/12/24
06:36
WBC 8.1
Hgb 10.7 L
Hct 30.9 L
Plt Count 299
Sodium 136
Potassium 4.0 D
Chloride 101
Carbon Dioxide 25
BUN 7
Creatinine 0.8
Glucose 102 H
Calcium 8.5
Vital Signs:
Vital Signs
Temp Pulse Resp BP Pulse Ox
97.6 F 54 18 165/66 97
03/12/24 08:34 03/12/24 08:43 03/12/24 08:34 03/12/24 08:43 03/12/24 08:34
I&O
03/11/24 03/12/24 03/13/24
06:59 06:59 06:59
Intake Total 500 / 500 1695 / 1695
Output Total 375 / 375
Balance 500 / 500 1320 / 1320
--- NOTE | 2024-03-12 09:32 | W.PN.GS2 ---
Addendum entered and electronically signed by Frederick Ruth MD 03/12/24 09:52:
pt seen and examined
c/o discomfort from transgluteal drain but tolerating it
+fl and some liquid stool
no new abdominal pains
AFVSS
NAD
ABD: soft, ND, mild TTP suprapubic, no R/R/G
IR drain with seropurulent drainage to GRAHAM bulb
A/P: okay for full liquid diet and supplements
continue drain care
Original Note:
Today's Communication / Plan
-
FLD
Continue IR drain
Assessment / Plan
-
78-year-old female with a history of paracolonic abscess likely fistulizing into clerical grader structures with surgery planned on Apr 01 with CRS and CORE OVEN TENDER.
Repeat imaging this presentation with 6.5 x 7 x 6.5 cm multilocular peridiverticular abscess along the left lateral margin of the sigmoid colon now PPD #1 IR drainage
AFVSS
Low UO straight cath overnight for 325ml
Labs stable without leukocytosis
Plan:
-No plans for surgery at this time. She is scheduled for April [address] Griffith and Dr. Hanks.
-Continue IR drain
-Trend labs
-Continue IVF and follow UO/Bladder scans
-Continue IV antibiotics
-Advance diet to fulls
-Will follow
Subjective Data
-
Date of Service: March 12, 2024
Patient seen and examined at bedside with Dr. Ruth. Denies n/v. Denies abdominal pain. Notes pain at drain insertion site. Reports difficulty urinating. Passing flatus/stool.
Objective Data
-
Intake and Output
03/11/24 03/12/24 03/13/24
06:59 06:59 06:59
Intake Total 500 / 500 1695 / 1695
Output Total 375 / 375
Balance 500 / 500 1320 / 1320
Intake:
Oral fluids 720 / 720
IV fluids (Total) 450 / 450 975 / 975
NSS 75 / 75
IV piggybacks 50 / 50
Output:
Drain Output (Total)
Left Lower Sacrum Joesph-Zhu
A Placed in IR
Urine, Voided
Straight cath output 325 / 325
Other:
Number of approximated SMALL 1 1
amounts of urine
Number of approximated MODERATE 1
amounts of urine
Number of unmeasured liquid
stools
Rectum 2
Vital Signs
Temp Pulse Resp BP Pulse Ox
97.6 F 54 18 165/66 97
03/12/24 08:34 03/12/24 08:43 03/12/24 08:34 03/12/24 08:43 03/12/24 08:34
Lab Results
03/12/24 06:36
03/12/24 06:36
Calcium 8.5 mg/dl (8.4-10.2) 03/12/24 06:36
Phosphorus 2.8 mg/dl (2.5-4.5) 03/12/24 06:36
Magnesium 1.5 mg/dl (1.6-2.3) L 03/12/24 06:36
Total Bilirubin 1.0 mg/dl (0.2-1.3) 03/10/24 20:05
AST 42 U/L (14-36) H 03/10/24 20:05
ALT 20 U/L (0-35) 03/10/24 20:05
Alkaline Phosphatase 88 U/L (38-126) 03/10/24 20:05
Total Protein 6.1 g/dl (6.3-8.2) L 03/10/24 20:05
Albumin 3.6 g/dl (3.5-5.0) 03/10/24 20:05
Physical Exam
-
NAD
ABD soft, nt, nd. Right gluteal IR drain with pink purulent drainage, tender at site
[2024-03-12] MEDS: NSS 1000 IV ×2 (10:16→20:26)
[2024-03-12] MEDS: MAGNESIUM SULFATE 50 IV (10:22)
[2024-03-12] MEDS: TYLENOL 650 MG PO ×2 (11:53→20:25)
--- NOTE | 2024-03-12 12:20 | W.PN.ID1 ---
Date of Service
Date of Service: March 12, 2024
Today's Communication
continue Levofloxacin and metronidazole for now
Assessment / Plan
Recurrent sigmoid diverticulitis
-previously been on multiple courses of unasyn, zosyn, augmentin, micafungin and fluconazole
Pelvic Abscess - suspect diverticular abscess with secondarily involved TOA
- 03/11 s/p abscess drainage of green purulent fluid. Grams Stain GNR; cx pending
- continue Levofloxacin and metronidazole for now. QTc acceptable.
- eventual colon resection.
Chief Complaint
-: Other (Diverticulitis)
Subjective / Review of Systems
Waxing and waning abd pain.
Vital Signs / Physical Exam
Vital Signs
Vital Signs
Temp Pulse Resp BP Pulse Ox
97.6 F 54 18 165/66 97
03/12/24 08:34 03/12/24 08:43 03/12/24 08:34 03/12/24 08:43 03/12/24 08:34
Physical Exam
Constitutional: No Acute Distress
Pulmonary: Clear
Gastrointestinal: Soft, Tender (LLQ mild) and Non Distended
Extremities: Negative Edema
Neurological: AO x 3
Objective Data
Lab Data
Lab Results
03/12/24 06:36
03/12/24 06:36
ESR 36 mm/hour (0-20) H 03/12/24 06:36
Estimated Creat Clear 46 ml/min 03/12/24 06:36
Lactic Acid 1.9 mmol/L (0.7-2.0) 03/10/24 20:05
Total Bilirubin 1.0 mg/dl (0.2-1.3) 03/10/24 20:05
AST 42 U/L (14-36) H 03/10/24 20:05
ALT 20 U/L (0-35) 10/10/24 20:05
Alkaline Phosphatase 88 U/L (38-126) 03/10/24 20:05
C-Reactive Protein Cancelled 03/11/24 17:13
Most recent labs reviewed.
Micro Results:
03/11/24 16:55 Wound Culture - Pending
Abscess Gram Stain - Preliminary
[2024-03-12] MEDS: MYCAMINE 105 MG IV (12:29)
[2024-03-12 12:46] VITALS: BP 118/51
[2024-03-12 16:37] VITALS: BP 127/50
[2024-03-12] MEDS: APRESOLINE PO (16:52)
[2024-03-12] MEDS: LOVENOX 40 MG SC (17:46)
[2024-03-12 19:37] VITALS: BP 145/59
[2024-03-12] MEDS: XALATAN OPHTHALMIC SOLUTION 1 DROP BOTH EYES (23:12)
[2024-03-12 23:22] VITALS: BP 158/62
[2024-03-13] VITALS (7 sets, daily range): BP systolic 114–168; BP diastolic 46–140; BMI 26.5
[2024-03-13] MEDS: NSS 1000 IV (05:54)
[2024-03-13 08:31] LABS: Hematocrit 32.5 % (37.0-47.0); Mean Corp Hgb Conc. 33.8 g/dL (33.0-37.0); Mean Corpuscular Hgb 30.5 pg (27.0-31.0); Mean Platelet Volume 11.5 fL (7.4-10.4); Platelet Count 318 10^3/uL (130-400); Red Blood Cell Count 3.61 10^6/uL (4.20-5.40); Red Cell Dist. Width 14.1 % (11.5-14.5); White Blood Cell Count 9.8 10^3/uL (4.8-10.8)
--- NOTE | 2024-03-13 08:37 | W.PN.HOSP.TC ---
Today's Communication/Plan
-
see bold
Assessment / Plan
Assessment / Plan
78 y.o female comes in with leukocytosis and abdominal pain, found to have recurrent peridiverticular abscess along the sigmoid colon.
PLAN:
1. Peridiverticular abscess with tubo-ovarian abscess, recurrent sigmoid diverticulitis
- Persistent peridiverticular abscess s/p temporary drainage on last admission and s/p Augmentin and diflucan course (to end 03/10). Recurrent leukocytosis starting about 4 days ago. No fevers chills. No other signs of active infection. Pain and
loose stools but no tenderness to palpation. She is non-toxic but looks generally fatigued.
- Appreciate ID and colorectal surgery input, status post drainage by IR 03/11, draining 10 mL of green purulent fluid - drain in place
- ID recommends treatment with Levaquin, Flagyl, micafungin. 03/11 cultures growing Pseudomonas, grown negative rods, yeast
- No plans for surgery at this time. She is scheduled for April [address] Griffith and Dr. Hanks.
- Diet advance to low residue
2. Hyponatremia/Hypokalemia
- Na 128. No acute symptoms. She is prone to low sodium with dehydration. She has been on lasix with about a 30 Ib weight loss since initiation. She is also on aldactone. Low PO intake on history and also on prozac. Dry oral mucosa, no
evidence of volume overload at this point.
- hold lasix for now
- urine osmolality and urine sodium reviewed, suspect hypovolemic hyponatremia
- Repleted and resolved, cap IV fluids 03/13 due to LE edema
3. HTN - Hypertensive today and has been at home per family. Compliant with meds
- enalapril 40
- spironolactone 25
- metoprolol
- BP improved with adding hydralazine 75 mg 3 times daily 03/11
4. AFIB -
- cleared by surg to resume apixaban 03/13
- continue metoprolol for rate control
5. GERD/Cough
- dry cough, reflux symptoms, suspect GERD related UACS.
- ppi iv daily for now
6. Aspiration
- Family reports aspiration with textured food but not liquids or soft foods and is tolerating oral meds
- Barium swallow negative except for decreased esophageal motility
- Consult SPL
7. Hypomagnesemia
- Repleted and resolved
8. Non-anion gap metabolic acidosis
-Start oral sodium bicarb 03/13, trend
9. Urinary retention
-She is having BM's - check KUB to rule out overflow
-Borjas inserted 03/13
10. GERD
Continue PPI
DVT PPX - apixaban
Code status - full code
Total time spent to see the patient on the floor, examine the patient, review data and lab results, discuss treatment plan with patient, nursing staff around 52 minutes.
Physical Exam
General: No acute distress
HEENT: Normocephalic, Atraumatic, EOMI, MMM
Respiratory: Clear to Auscultation bilaterally
Cardiac: Normal S1/S2, Regular Rate and Rhythm
GI: Soft, tender at the left lower quadrant, Nondistended, Normal Bowel Sounds
+Abd drain with serosanguineous drainage
Extremities: No Clubbing, Cyanosis
Bilateral lower extremity edema noted
Neuro: Nonfocal/Grossly Intact
Anticipated Discharge: > 48 hours
Subjective/Interval History
-
Date of Service: March 12, 2024
Patient reports intermittent abdominal pain, left lower quadrant. Pain is unchanged with eating a full liquid diet. She is having urinary retention. She is having bowel movements. She reports feeling weak and tired, nauseous. No vomiting. No
fever, no chest pain, no shortness of breath.
Objective Data
-
Labs:
Laboratory Results
03/12/24
06:36
WBC 8.1
Hgb 10.7 L
Hct 30.9 L
Plt Count 299
Sodium 136
Potassium 4.0 D
Chloride 101
Carbon Dioxide 25
BUN 7
Creatinine 0.8
Glucose 102 H
Calcium 8.5
Vital Signs:
Vital Signs
Temp Pulse Resp BP Pulse Ox
98.3 F 54 18 118/51 96
03/12/24 12:46 03/12/24 12:46 03/12/24 12:46 03/12/24 12:46 03/12/24 12:46
I&O
03/11/24 03/12/24 03/13/24
06:59 06:59 06:59
Intake Total 500 / 500 1695 / 1695
Output Total 375 / 375
Balance 500 / 500 1320 / 1320
[2024-03-13] MEDS: VASOTEC 40 MG PO (09:02)
[2024-03-13] MEDS: FLAGYL 500 MG PO ×3 (09:03→23:21)
[2024-03-13] MEDS: ALDACTONE 25 MG PO (09:03)
[2024-03-13] MEDS: LEVAQUIN 750 MG PO (09:03)
[2024-03-13] MEDS: APRESOLINE 75 MG PO (09:03)
[2024-03-13] MEDS: PROZAC 20 MG PO (09:03)
[2024-03-13] MEDS: LOPRESSOR 12.5 MG PO ×2 (09:04→21:15)
[2024-03-13] MEDS: PROTONIX IV 40 MG IV (09:05)
[2024-03-13] MEDS: TIMOPTIC 0.5% OPHTHALMIC SOLUTION 1 DROP BOTH EYES (09:05)
[2024-03-13] MEDS: NSS (PRESERVATIVE FREE) 10 ML IV (09:05)
[2024-03-13] MEDS: DESENEX/MITRAZOL/ZEASORB 1 APPLIC TOPICAL ×2 (09:06→22:05)
[2024-03-13 09:18] LABS: Blood Urea Nitrogen 5 mg/dl (7-17); Calcium 8.4 mg/dl (8.4-10.2); Carbon Dioxide 18 mmol/L (22-30); Chloride 103 mmol/L (98-107); Estimated Creatinine Clearance 53 ml/min; Glucose 86 mg/dl (70-99); Magnesium 1.8 mg/dl (1.6-2.3); Phosphorus 2.9 mg/dl (2.5-4.5); Potassium 3.8 mmol/L (3.5-5.1); Sodium 134 mmol/L (135-145); eGFR > 60.00
--- NOTE | 2024-03-13 09:44 | PTCARENOTE ---
Pt states she feels like she has to pee but it will not come out. 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 This morning after use of the bedpan pt bladder scanned for 371. Dr. Yu notified. Stop IVF.
--- NOTE | 2024-03-13 11:03 | W.PN.GS2 ---
Addendum entered and electronically signed by Frederick Ruth MD 03/13/24 11:12:
Patient seen and examined with [employer] G[employer] DEALER. Agree with documented progress note
Discussed with patient's nurse, reviewed in detail with patient's daughter at bedside as well as her son who was on conference phone call at time of evaluation.
Patient reports discomfort and pain from IR drain
She is feeling tired and wiped out, no appetite but not nauseous and no vomiting
Having trouble voiding and has required multiple straight catheterization
AFVSS
NAD, uncomfortable appearing
ABD: Soft, not distended, minimal tenderness, no rebound, no rigidity, no guarding
Left gluteal IR drain in place with stool contents
A/P: Place Gaona catheter given persistent ongoing retention requiring straight catheterizations. Retention likely related to pelvic inflammation in setting of ongoing treatment of infection
Maintain IR drain
Continue antibiotic regimen
Cautious dietary advancement, will place on low residue diet to allow patient more options and choices. Continue with supplements.
Any of the patient's family's questions were fully answered regarding surgical ongoing care.
Original Note:
Today's Communication / Plan
-
Pain management
Place gaona
Advance to LRD as tolerated
Assessment / Plan
-
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
Repeat imaging this presentation with 6.5 x 7 x 6.5 cm multilocular peridiverticular abscess along the left lateral margin of the sigmoid colon
PPD #2 IR drainage cx with pseudomonas, GNB and yeast. ID following for management of abx. Pain to IR drain site which is typical for this location
AFVSS
Acute urinary retention
Labs stable without leukocytosis
Plan:
-No plans for surgery at this time. She is scheduled for April [address] Griffith and Dr. Hanks.
-Continue IR drain and follow cx
-Trend labs
-Place gaona
-Multimodal analgesics; tylenol, toradol, and tramadol prn
-Continue IV antibiotics as per ID
-Advance diet to LRD with supplements as tolerated
Subjective Data
-
Date of Service: March 13, 2024
Patient seen and examined at bedside with Dr. Ruth. Daughter at bedside, son on speaker phone: questions addressed. Reports pain to the buttock. Unable to void. Minimal abdominal pain but sensation of full bladder with abdominal exam.
Objective Data
-
Intake and Output
03/12/24 03/13/24 03/14/24
06:59 06:59 06:59
Intake Total 1695 / 1695 2230 / 2230
Output Total 375 / 375 50 / 50
Balance 1320 / 1320 2180 / 2180
Intake:
Oral fluids 720 / 720 1020 / 1020
IV fluids (Total) 975 / 975 1200 / 1200
NSS 75 / 75
Amount instilled into Drain (
Total)
Left Lower Sacrum Joesph-Zhu 10 10
A Placed in IR
Output:
Drain Output (Total) 25 / 25 50 / 50
Left Lower Sacrum Joesph-Zhu 25 / 25 50 / 50
A Placed in IR
Urine, Voided 25 / 25
Straight cath output 325 / 325
Other:
Number of approximated SMALL 1
amounts of urine
How many times incontinent 1
SMALL amount urine
Number of unmeasured liquid
stools
Rectum 2
Vital Signs
Temp Pulse Resp BP Pulse Ox
97.5 F 68 18 160/70 95
03/13/24 08:00 03/13/24 09:04 03/13/24 08:00 03/13/24 09:04 03/13/24 08:00
Lab Results
03/13/24 08:07
03/13/24 08:07
Calcium 8.4 mg/dl (8.4-10.2) 03/13/24 08:07
Phosphorus 2.9 mg/dl (2.5-4.5) 03/13/24 08:07
Magnesium 1.8 mg/dl (1.6-2.3) 03/13/24 08:07
Total Bilirubin 1.0 mg/dl (0.2-1.3) 03/10/24 20:05
AST 42 U/L (14-36) H 03/10/24 20:05
ALT 20 U/L (0-35) 03/10/24 20:05
Alkaline Phosphatase 88 U/L (38-126) 03/10/24 20:05
Total Protein 6.1 g/dl (6.3-8.2) L 03/10/24 20:05
Albumin 3.6 g/dl (3.5-5.0) 03/10/24 20:05
Physical Exam
-
NAD
ABD soft, minimal pelvic tenderness, nd.
Right gluteal IR drain with feculent purulent drainage, tender at site
[2024-03-13] MEDS: SODIUM BICARBONATE 1300 MG PO ×3 (11:15→22:11)
[2024-03-13] MEDS: MYCAMINE 105 MG IV (11:16)
--- NOTE | 2024-03-13 12:14 | W.PN.ID1 ---
Date of Service
Date of Service: March 13, 2024
Today's Communication
Continue Levofloxacin, metronidazole, and micafungin
Assessment / Plan
Recurrent sigmoid diverticulitis
-previously been on multiple courses of unasyn, zosyn, augmentin, micafungin and fluconazole
Pelvic Abscess - suspect diverticular abscess with secondarily involved TOA
- 03/11 s/p abscess drainage of green purulent fluid.
- Abscess culture cx: Pseudomonas, GNR, and yeast
Asked micro to work-up organisms
- continue Levofloxacin, metronidazole, and micafungin. QTc acceptable.
- eventual colon resection.
Chief Complaint
-: Other (Diverticulitis)
Subjective / Review of Systems
Abd pain better right now.
Vital Signs / Physical Exam
Vital Signs
Vital Signs
Temp Pulse Resp BP Pulse Ox
97.5 F 68 18 160/70 95
03/13/24 08:00 03/13/24 09:04 03/13/24 08:00 03/13/24 09:04 03/13/24 08:00
Physical Exam
Constitutional: No Acute Distress
Eyes: Sclera Anicteric
Pulmonary: Clear
Gastrointestinal: Soft, Tender (minimal LLQ) and Non Distended
Genito-Urinary: Borjas and Turbid Urine
Neurological: AO x 3
Objective Data
Lab Data
Lab Results
03/13/24 08:07
03/13/24 08:07
ESR 36 mm/hour (0-20) H 03/12/24 06:36
Estimated Creat Clear 53 ml/min 03/13/24 08:07
Lactic Acid 1.9 mmol/L (0.7-2.0) 03/10/24 20:05
Total Bilirubin 1.0 mg/dl (0.2-1.3) 03/10/24 20:05
AST 42 U/L (14-36) H 03/10/24 20:05
ALT 20 U/L (0-35) 03/10/24 20:05
Alkaline Phosphatase 88 U/L (38-126) 03/10/24 20:05
C-Reactive Protein Cancelled 03/11/24 17:13
Most recent labs reviewed.
Micro Results:
03/11/24 16:55 Wound Culture - Preliminary
Abscess Pseudomonas aeruginosa
Gram negative bacilli
Yeast
Gram Stain - Preliminary
[2024-03-13] MEDS: PROTONIX 40 MG PO (13:27)
[2024-03-13] MEDS: FLOMAX 0.4 MG PO (13:27)
[2024-03-13] MEDS: TYLENOL 650 MG PO (13:35)
--- NOTE | 2024-03-13 15:09 | PTOTSP ---
SPEECH THERAPY SWALLOW EVALUATION:
Patient exhibits grossly functional oropharyngeal swallow at this time. Patient with history of esophageal dysphagia including GERD and decreased esophageal motility as per Barium Swallow X-Ray 03/11. Patient reported transient dysphagia symptoms
last week characterized by difficulty with 'textured foods' causing globus sensation in throat, which pt reported has since resolved. No further history of dysphagia/pneumonia. Reported prefers medications whole in applesauce. Currently with stable
respiratory status (breathing comfortably on room air). No signs/symptoms of aspiration at this time. Patient does remain at risk for aspiration and post-prandial aspiration given esophageal dysphagia/GERD. Recommend continue Regular texture diet,
thin liquids. Medications whole in applesauce. Aspiration and Reflux precautions: Upright positioning; Remain upright 30 minutes after eating/drinking; Small single sips/bites; Slow rate of intake; Alternate textures/intersperse liquids; Take breaks
during meals; Monitor for signs of aspiration; D/c oral diet if any decline in mental or respiratory status. Oral care 3x/day to reduce risk for nosocomial infection. ST to follow, assess diet tolerance and modify as appropriate, monitor CXR and
labs, determine indication for instrumental assessment of swallowing if warranted, and provide continued education regarding aspiration/reflux precautions.
RECOMMEND:
1) Regular texture diet, thin liquids
2) Medications whole in applesauce
3) Aspiration and Reflux precautions: Upright positioning; Remain upright 30 minutes after eating/drinking; Small single sips/bites; Slow rate of intake; Alternate textures/intersperse liquids; Take breaks during meals; Monitor for signs of
aspiration; D/c oral diet if any decline in mental or respiratory status
4) Oral care 3x/day to reduce risk for nosocomial infection
5) ST to follow and determine indication for VSE if warranted
[2024-03-13] MEDS: APRESOLINE PO ×2 (17:34→21:15)
[2024-03-13] MEDS: ELIQUIS 5 MG PO (21:15)
[2024-03-13] MEDS: XALATAN OPHTHALMIC SOLUTION 1 DROP BOTH EYES (22:12)
[2024-03-14] VITALS (7 sets, daily range): BP systolic 124–156; BP diastolic 46–63; PULSE 61; O2SAT 97; BMI 26.5
--- NOTE | 2024-03-14 06:32 | W.PN.HOSP.TC ---
Today's Communication/Plan
-
cont abx antifungal as per ID
drain mgmt as per surgery
blood pressure control
pain control
PT/OT
Assessment / Plan
Assessment / Plan
78 y.o female comes in with leukocytosis and abdominal pain, found to have recurrent peridiverticular abscess along the sigmoid colon.
PLAN:
1. Peridiverticular abscess with tubo-ovarian abscess, recurrent sigmoid diverticulitis
- Persistent peridiverticular abscess s/p temporary drainage on last admission and s/p Augmentin and diflucan course (to end 03/10). Recurrent leukocytosis starting about 4 days ago. No fevers chills. No other signs of active infection. Pain and
loose stools but no tenderness to palpation. She is non-toxic but looks generally fatigued.
- Appreciate ID and colorectal surgery input, status post drainage by IR 03/11, draining 10 mL of green purulent fluid - drain in place
- ID recommends treatment with Levaquin, Flagyl, micafungin. 03/11 cultures growing Pseudomonas, grown negative rods, yeast
- No plans for surgery at this time. She is scheduled for April [address] Griffith and Dr. Hanks.
- Diet advance to low residue
2. Hyponatremia/Hypokalemia
- Na 128. No acute symptoms. She is prone to low sodium with dehydration. She has been on lasix with about a 30 Ib weight loss since initiation. She is also on aldactone. Low PO intake on history and also on prozac. Dry oral mucosa, no
evidence of volume overload at this point.
- hold lasix for now
- urine osmolality and urine sodium reviewed, suspect hypovolemic hyponatremia
- Repleted and resolved, cap IV fluids 03/13 due to LE edema
3. HTN - Hypertensive today and has been at home per family. Compliant with meds
- enalapril 40
- spironolactone 25
- metoprolol
- BP improved with adding hydralazine 75 mg 3 times daily 03/11
4. AFIB -
- cleared by surg to resume apixaban 03/13
- continue metoprolol for rate control
5. GERD/Cough
- dry cough, reflux symptoms, suspect GERD related UACS.
- ppi iv daily for now
6. Aspiration
- Family reports aspiration with textured food but not liquids or soft foods and is tolerating oral meds
- Barium swallow negative except for decreased esophageal motility
- Consult SPL
7. Hypomagnesemia
- Repleted and resolved
8. Non-anion gap metabolic acidosis
-Start oral sodium bicarb 03/13, trend
9. Urinary retention
-She is having BM's - KUB appreciated no excessive stool burden, ruled out overflow
-Borjas inserted 03/13
10. GERD
Continue PPI
PT appreciated SNF rehab
DVT PPX - apixaban
Code status - full code
discussed with patient and patient's son Arpit
Total time spent to see the patient on the floor, examine the patient, review data and lab results, discuss treatment plan with patient, nursing staff around 50 minutes.
Physical Exam
General: No acute distress
HEENT: Normocephalic, Atraumatic, EOMI, MMM
Respiratory: Clear to Auscultation bilaterally
Cardiac: Normal S1/S2, Regular Rate and Rhythm
GI: Soft, tender at the left lower quadrant, Nondistended, Normal Bowel Sounds
+Abd drain with serosanguineous drainage
Extremities: No Clubbing, Cyanosis
Bilateral lower extremity edema noted
Neuro: Nonfocal/Grossly Intact
Anticipated Discharge: > 48 hours
Subjective/Interval History
-
Date of Service: March 14, 2024
No acute distress appears comfortable at rest. Endorses improvement in appetite.
Objective Data
-
Labs:
Laboratory Results
03/14/24
06:00
WBC Pending
Hgb Pending
Hct Pending
Plt Count Pending
Sodium Pending
Potassium Pending
Chloride Pending
Carbon Dioxide Pending
BUN Pending
Creatinine Pending
Glucose Pending
Calcium Pending
Vital Signs:
Vital Signs
Temp Pulse Resp BP Pulse Ox
98.2 F 65 18 139/59 96
03/14/24 03:49 03/14/24 03:49 03/14/24 03:49 03/14/24 03:49 03/14/24 03:49
I&O
03/12/24 03/13/24 03/14/24
06:59 06:59 06:59
Intake Total 1695 / 1695 2230 / 2230 480 / 480
Output Total 375 / 375 50 / 50 530 / 530
Balance 1320 / 1320 2180 / 2180 -50 / -50
[2024-03-14 07:43] LABS: Hematocrit 30.8 % (37.0-47.0); Hemoglobin 10.7 g/dL (12.0-16.0); Mean Corp Hgb Conc. 34.7 g/dL (33.0-37.0); Mean Corpuscular Hgb 30.9 pg (27.0-31.0); Mean Platelet Volume 11.5 fL (7.4-10.4); Platelet Count 297 10^3/uL (130-400); Red Blood Cell Count 3.46 10^6/uL (4.20-5.40); White Blood Cell Count 9.6 10^3/uL (4.8-10.8)
--- NOTE | 2024-03-14 07:43 | PTCARENOTE ---
Pt c/o nausea at HS, zofran given x 1 with + effect, also decrease urine output noted an increase swelling to LE compared to previous night. 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
[2024-03-14 08:20] LABS: Blood Urea Nitrogen 7 mg/dl (7-17); Calcium 8.5 mg/dl (8.4-10.2); Carbon Dioxide 22 mmol/L (22-30); Chloride 100 mmol/L (98-107); Estimated Creatinine Clearance 46 ml/min; Glucose 94 mg/dl (70-99); Magnesium 1.7 mg/dl (1.6-2.3); Phosphorus 2.6 mg/dl (2.5-4.5); Potassium 3.8 mmol/L (3.5-5.1); Sodium 132 mmol/L (135-145); eGFR > 60.00
[2024-03-14 09:13] LABS: Erythrocyte Sed Rate 30 mm/hour (0-20)
[2024-03-14] MEDS: LEVAQUIN 750 MG PO (10:05)
[2024-03-14] MEDS: FLOMAX 0.4 MG PO (10:05)
[2024-03-14] MEDS: FLAGYL 500 MG PO ×2 (10:05→16:38)
[2024-03-14] MEDS: PROTONIX 40 MG PO (10:06)
[2024-03-14] MEDS: VASOTEC 40 MG PO (10:06)
[2024-03-14] MEDS: APRESOLINE 75 MG PO ×3 (10:07→22:16)
[2024-03-14] MEDS: SODIUM BICARBONATE 1300 MG PO ×3 (10:07→22:02)
[2024-03-14] MEDS: ELIQUIS 5 MG PO ×2 (10:07→22:01)
[2024-03-14] MEDS: ALDACTONE 25 MG PO (10:08)
[2024-03-14] MEDS: LOPRESSOR 12.5 MG PO ×2 (10:08→22:00)
[2024-03-14] MEDS: PROZAC 20 MG PO (10:08)
[2024-03-14] MEDS: NSS (PRESERVATIVE FREE) IV (10:09)
[2024-03-14] MEDS: TIMOPTIC 0.5% OPHTHALMIC SOLUTION 1 DROP BOTH EYES (10:09)
[2024-03-14] MEDS: DESENEX/MITRAZOL/ZEASORB 1 APPLIC TOPICAL ×2 (10:11→22:11)
--- NOTE | 2024-03-14 10:12 | W.PN.ID1 ---
Date of Service
Date of Service: March 14, 2024
Today's Communication
- Abscess culture cx: Pseudomonas, GNR, and yeast - discussed with lab awaiting ID and sensi
- continue Levofloxacin, metronidazole, and micafungin.
Assessment / Plan
Recurrent sigmoid diverticulitis
-previously been on multiple courses of unasyn, zosyn, augmentin, micafungin and fluconazole
Pelvic Abscess - suspect diverticular abscess with secondarily involved TOA
- 03/11 s/p abscess drainage of green purulent fluid.
- Abscess culture cx: Pseudomonas, GNR, and yeast - discussed with lab awaiting ID and sensi
- continue Levofloxacin, metronidazole, and micafungin.
- QTc acceptable.
- follow draiin output remains high
- eventual colon resection.
Chief Complaint
-: Other (Diverticulitis with abscess)
Subjective / Review of Systems
afebrile
bp stable
put out 50 ccs in the drain yesterday
having urinary retention yesterday
frustrated
Vital Signs / Physical Exam
Vital Signs
Vital Signs
Temp Pulse Resp BP Pulse Ox
98.1 F 66 18 149/53 94
03/14/24 07:25 03/14/24 10:08 03/14/24 07:25 03/14/24 10:08 03/14/24 07:25
Physical Exam
Constitutional: No Acute Distress
Cardiovascular: Regular Rate and S1/S2; Negative Murmur or Rub
Pulmonary: Clear and Symmetric; Negative Wheezes or Rales
Gastrointestinal: Soft, Non Tender, Non Distended and Normal Bowel Sounds
Skin: Warm and Dry; Negative Rash or Jaundice
Objective Data
Lab Data
Lab Results
03/14/24 07:06
03/14/24 07:06
ESR 30 mm/hour (0-20) H 03/14/24 07:06
Estimated Creat Clear 46 ml/min 03/14/24 07:06
Lactic Acid 1.9 mmol/L (0.7-2.0) 03/10/24 20:05
Total Bilirubin 1.0 mg/dl (0.2-1.3) 03/10/24 20:05
AST 42 U/L (14-36) H 03/10/24 20:05
ALT 20 U/L (0-35) 03/10/24 20:05
Alkaline Phosphatase 88 U/L (38-126) 03/10/24 20:05
C-Reactive Protein 48.90 mg/L (0.0-10.00) H 03/14/24 07:06
Most recent labs reviewed.
AXR: no dilated loops of colon
Micro Results:
03/11/24 16:55 Wound Culture - Preliminary
Abscess Pseudomonas aeruginosa
Gram negative bacilli
Yeast
Gram Stain - Preliminary
Care Review
Plan reviewed with: Laboratory (confirmed sensi in progress)
--- NOTE | 2024-03-14 10:37 | W.PN.CRS1 ---
Addendum entered and electronically signed by Joey Vigil MD 03/14/24 11:31:
Spoke with urology, recommended void trial in 1-2 days; if retains again, would recommend leaving gaona until surgery
Original Note:
Today's Communication / Plan
-
OOB with PT
continue abx
surgery Apr 01
Assessment/Plan
-
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
Repeat imaging this presentation with 6.5 x 7 x 6.5 cm multilocular peridiverticular abscess along the left lateral margin of the sigmoid colon
PPD #3 IR drainage cx with pseudomonas, GNB and yeast. ID following for management of abx. Pain to IR drain site which is typical for this location
AFVSS
Acute urinary retention - gaona placed 03/13
Labs stable without leukocytosis
Plan:
-No plans for surgery at this time. She is scheduled for April [address] Griffith and Dr[address] Hanks. Discussed this with patient and son via phone.
-Continue IR drain and follow cx
-Trend labs
-Recommend urology if continues to retain
-Multimodal analgesics; tylenol, toradol, and tramadol prn
-Continue IV antibiotics as per ID
-Continue low residue diet
-Eliquis restarted 03/13
-OOB with PT/OT
Subjective Data
Procedure
03/11- IR drain placement
Subjective Data
Date of Service: March 14, 2024
Patient states she had bowel movements but no gas. She denies nausea or vomiting. She denies pain currently. She is frustrated because she wants to get out of bed but is unsteady on her feet.
Objective Data
-
Vital Signs
Temp Pulse Resp BP Pulse Ox
98.1 F 66 18 149/53 94
03/14/24 07:25 03/14/24 10:08 03/14/24 07:25 03/14/24 10:08 03/14/24 07:25
Intake & Output
03/13/24 03/14/24 03/15/24
06:59 06:59 06:59
Intake Total 2230 / 2230 485 / 485
Output Total 50 / 50 795 / 795
Balance 2180 / 2180 -310 / -310
Intake:
Oral fluids 1020 / 1020 480 / 480
IV fluids (Total) 1200 / 1200
Amount instilled into Drain (
Total)
Left Lower Sacrum Joesph-Zhu
A Placed in IR
Output:
Drain Output (Total) 50 / 50 45 / 45
Left Lower Sacrum Joesph-Zhu 50 / 50 45 / 45
A Placed in IR
Urine, Gaona 750 / 750
Other:
How many times incontinent 1
SMALL amount urine
Number of unmeasured liquid
stools
Rectum 1 2
Lab Results
03/14/24 07:06
03/14/24 07:06
Physical Exam
-
General: No Acute Distress and AOx3
Abdomen: Soft, Non Distended, Non Tender and Other (walter drain purulent)
Skin: Warm and Dry
[2024-03-14] MEDS: MYCAMINE 105 MG IV (11:26)
--- NOTE | 2024-03-14 13:26 | CM ---
Reviewed the chart notes. CM continues to be available to patient/family and is monitoring medical plan for needs at discharge.
Plan: Discharge plans will depend on the patient's progress. Hopefully home with resumption of [facility].
[2024-03-14] MEDS: XALATAN OPHTHALMIC SOLUTION 1 DROP BOTH EYES (22:02)
[2024-03-14] MEDS: ZOFRAN 4 MG IV (22:10)
[2024-03-14] MEDS: XANAX 0.25 MG PO (22:16)
[2024-03-14] MEDS: LASIX 20 MG PO (22:55)
--- NOTE | 2024-03-14 23:30 | W.PN.UPDATE ---
Update Note
Progress Note Update
RN reports low UO-maybe 200ml a shift. Bilat LE also increasing edema. Weight up. Takes lasix 20mg po at home. will give one dose now
[2024-03-15] MEDS: FLAGYL 500 MG PO ×4 (01:00→23:41)
[2024-03-15 03:41] VITALS: BP 144/68
[2024-03-15 05:10] VITALS: BMI 26.4
[2024-03-15 06:53] LABS: Hemoglobin 10.5 g/dL (12.0-16.0); Mean Corp Hgb Conc. 33.9 g/dL (33.0-37.0); Mean Corpuscular Volume 88.6 fL (81.0-99.0); Mean Platelet Volume 11.9 fL (7.4-10.4); Platelet Count 293 10^3/uL (130-400); Red Cell Dist. Width 13.8 % (11.5-14.5); White Blood Cell Count 8.6 10^3/uL (4.8-10.8)
[2024-03-15 07:16] LABS: Blood Urea Nitrogen 6 mg/dl (7-17); Calcium 8.3 mg/dl (8.4-10.2); Carbon Dioxide 27 mmol/L (22-30); Chloride 98 mmol/L (98-107); Estimated Creatinine Clearance 46 ml/min; Glucose 99 mg/dl (70-99); Magnesium 1.5 mg/dl (1.6-2.3); Phosphorus 3.1 mg/dl (2.5-4.5); Potassium 3.7 mmol/L (3.5-5.1); Sodium 133 mmol/L (135-145); eGFR > 60.00
[2024-03-15 07:25] VITALS: BP 160/62
--- NOTE | 2024-03-15 07:38 | W.PN.HOSP.TC ---
Today's Communication/Plan
-
cont abx antifungal as per ID
drain mgmt as per surgery
blood pressure control
pain control
PT/OT
home Lasix resumed
Assessment / Plan
Assessment / Plan
78 y.o female comes in with leukocytosis and abdominal pain, found to have recurrent peridiverticular abscess along the sigmoid colon.
PLAN:
1. Peridiverticular abscess with tubo-ovarian abscess, recurrent sigmoid diverticulitis
- Persistent peridiverticular abscess s/p temporary drainage on last admission and s/p Augmentin and diflucan course (to end 03/10). Recurrent leukocytosis starting about 4 days ago. No fevers chills. No other signs of active infection. Pain and
loose stools but no tenderness to palpation. She is non-toxic but looks generally fatigued.
- Appreciate ID and colorectal surgery input, status post drainage by IR 03/11, draining 10 mL of green purulent fluid - drain in place
- ID recommends treatment with Flagyl, micafungin, levofloxacin switched to cipro. 03/11 cultures growing Pseudomonas, grown negative rods, yeast
- No plans for surgery at this time. She is scheduled for April [address] Griffith and Dr. Hanks.
- Diet advance to low residue
2. Hyponatremia/Hypokalemia
- Na 128. No acute symptoms. She is prone to low sodium with dehydration. She has been on lasix with about a 30 Ib weight loss since initiation. She is also on aldactone. Low PO intake on history and also on prozac. Dry oral mucosa, no
evidence of volume overload at this point.
- hold lasix for now
- urine osmolality and urine sodium reviewed, suspect hypovolemic hyponatremia
- Repleted and resolved, cap IV fluids 03/13 due to LE edema
3. HTN - Hypertensive today and has been at home per family. Compliant with meds
- enalapril 40
- spironolactone 25
- metoprolol
- BP improved with adding hydralazine 75 mg 3 times daily 03/11
4. paroxysmal afib
- cleared by surg to resume apixaban 03/13
- continue metoprolol for rate control
5. GERD/Cough
- dry cough, reflux symptoms, suspect GERD related UACS.
- ppi iv daily for now
6. Aspiration
- Family reports aspiration with textured food but not liquids or soft foods and is tolerating oral meds
- Barium swallow negative except for decreased esophageal motility
- Consult SPL appreciated
7. Hypomagnesemia
- Repleted and resolved
8. Non-anion gap metabolic acidosis
-Start oral sodium bicarb 03/13, trend
9. Urinary retention
-She is having BM's - KUB appreciated no excessive stool burden, ruled out overflow
-Borjas inserted 03/13
10. GERD
Continue PPI
PT appreciated SNF rehab
DVT PPX - apixaban
Code status - full code
discussed with patient and patient's son Arpit
Total time spent to see the patient on the floor, examine the patient, review data and lab results, discuss treatment plan with patient, nursing staff around 50 minutes.
Physical Exam
General: No acute distress
HEENT: Normocephalic, Atraumatic, EOMI, MMM
Respiratory: Clear to Auscultation bilaterally
Cardiac: Normal S1/S2, Regular Rate and Rhythm
GI: Soft, tender at the left lower quadrant, Nondistended, Normal Bowel Sounds
+Abd drain with serosanguineous drainage
Extremities: No Clubbing, Cyanosis
Bilateral lower extremity edema noted
Neuro: Nonfocal/Grossly Intact
Anticipated Discharge: 24 - 48 hours
Subjective/Interval History
-
Date of Service: March 15, 2024
No acute distress appears comfortable at this time. Son Arpit and daughter Sindi present during evaluation
Objective Data
-
Labs:
Laboratory Results
03/15/24
05:47
WBC 8.6
Hgb 10.5 L
Hct 31.0 L
Plt Count 293
Sodium 133 L
Potassium 3.7
Chloride 98
Carbon Dioxide 27
BUN 6 L
Creatinine 0.8
Glucose 99
Calcium 8.3 L
Vital Signs:
Vital Signs
Temp Pulse Resp BP Pulse Ox
98.0 F 71 18 144/68 96
03/15/24 03:41 03/15/24 03:41 03/15/24 03:41 03/15/24 03:41 03/15/24 03:41
I&O
03/14/24 03/15/24 03/16/24
06:59 06:59 06:59
Intake Total 485 / 485 1140 / 1140
Output Total 795 / 795 505 / 505 5 / 5
Balance -310 / -310 635 / 635 -5 / -5
[2024-03-15] MEDS: PROTONIX 40 MG PO (09:39)
[2024-03-15] MEDS: VASOTEC 40 MG PO (09:39)
[2024-03-15] MEDS: ELIQUIS 5 MG PO ×2 (09:39→21:49)
[2024-03-15] MEDS: APRESOLINE 75 MG PO ×2 (09:40→21:48)
[2024-03-15] MEDS: PROZAC 20 MG PO (09:40)
[2024-03-15] MEDS: ALDACTONE 25 MG PO (09:40)
[2024-03-15] MEDS: SODIUM BICARBONATE 1300 MG PO ×3 (09:40→21:49)
[2024-03-15] MEDS: LEVAQUIN 750 MG PO (09:41)
[2024-03-15] MEDS: LOPRESSOR 12.5 MG PO ×2 (09:41→21:49)
[2024-03-15] MEDS: DESENEX/MITRAZOL/ZEASORB 1 APPLIC TOPICAL ×2 (09:43→21:52)
[2024-03-15] MEDS: FLOMAX 0.4 MG PO (09:45)
[2024-03-15] MEDS: NSS (PRESERVATIVE FREE) IV (09:45)
[2024-03-15] MEDS: TIMOPTIC 0.5% OPHTHALMIC SOLUTION 1 DROP BOTH EYES (09:46)
--- NOTE | 2024-03-15 10:12 | PTCARENOTE ---
Critical Lab culture wound abcess culture pseudomans aeruginosa Klebsiella oxytoca ESBL. FOrwarded to Dr. Mejia and Mouna AMARAL via tiger text at [id number]
--- NOTE | 2024-03-15 10:23 | W.PN.ID1 ---
Addendum entered and electronically signed by Alethea Enriquez MD 03/15/24 16:30:
I saw and evaluated the patient. I reviewed the resident�s note and agree with findings and plan as documented in the resident�s note with the following additions/corrections
Nausea noted overnight
Also with edema and started on lasix
Physical Exam
Constitutional: No Acute Distress
Cardiovascular: Regular Rate and S1/S2; Negative Murmur or Rub
Pulmonary: Clear and Symmetric; Negative Wheezes or Rales
Gastrointestinal: Soft, Non Tender, Non Distended and Normal Bowel Sounds
Skin: Warm and Dry; Negative Rash or Jaundice
A&P:
Recurrent sigmoid diverticulitis
-previously been on multiple courses of unasyn, zosyn, augmentin, micafungin and fluconazole
Pelvic Abscess - suspect diverticular abscess with secondarily involved TOA
- 03/11 s/p abscess drainage of green purulent fluid.
- Abscess culture cx: Pseudomonas, ESBL Klebsiella, and yeast - awaiting ID and sensi of the yeast
- switch levofloxacin to ciprofloxacin - gives more room on the QTc and we have sensi for cipro
- continue metronidazole, and micafungin.
- QTc acceptable.
- follow drain output remains high - 50 ccs output yesterday
- eventual colon resection
AW
Original Note:
Date of Service
Date of Service: March 15, 2024
Today's Communication
Patient switched to ciprofloxacin
Continue metronidazole and micafungin.
Pending yeast isolation and cultures.
Assessment / Plan
Assessment-
78-year-old female with past medical history significant for sigmoid diverticulitis, and congestive heart failure is admitted to the hospital for elevated white blood cell counts and loss of appetite, diagnosed with recurrent sigmoid diverticulitis
and associated abscess.
Subjective-patient's abdominal pain resolving, complaining of swelling of the feet and weight gain, in the context of CHF.
Zexummuqd-[id number]-[id number].
Abscess cultures positive for Pseudomonas aeruginosa, Klebsiella-ESBL and yeast. Sensitivities-Pseudomonas and Klebsiella-fluoroquinolones, sensitivities for yeast and yeast isolation pending.
Previously on multiple courses of Unasyn, Zosyn, Augmentin, micafungin and fluconazole.
Pelvic Abscess - suspect diverticular abscess with secondarily involved TOA
Plan-
Switch levofloxacin to ciprofloxacin, continue metronidazole and micafungin.
No QT prolongation noted.
High GRAHAM drain output noted.
Plan for colon resection and 2 weeks.
Chief Complaint
-: Other (Diverticulitis with abscess)
Subjective / Review of Systems
Patient reports to be feeling better. Abdominal pain resolved. Complains of swelling of feet and was wondering if she can take Lasix.
Review of Systems: No Fever, No Chills, No Headache, No Stiff Neck, No Cough, No Sputum Production, No Chest Pain, No Palpitations, Abdominal Pain (Improved.), No Nausea, No Diarrhea and No Dysuria
Vital Signs / Physical Exam
Vital Signs
Vital Signs
Temp Pulse Resp BP Pulse Ox
97.8 F 66 16 160/62 96
03/15/24 07:25 03/15/24 09:41 03/15/24 07:25 03/15/24 09:41 03/15/24 07:25
Physical Exam
Constitutional: Comfortable
Cardiovascular: Regular Rate and S1/S2; Negative Murmur, Rub or Gallop
Pulmonary: Clear; Negative Wheezes, Rales or Rhonchi
Gastrointestinal: Soft, Non Tender, Non Distended, Normal Bowel Sounds and Other (GRAHAM drain noted with greenish purulent discharge. No erythema or local rise of temperature at the site of drain insertion.)
Genito-Urinary: Borjas
Extremities: Edema (2+ pitting.)
Skin: Warm
Neurological: Awake and Alert
Psychological: Calm
Objective Data
Lab Data
Lab Results
03/15/24 05:47
03/15/24 05:47
ESR 30 mm/hour (0-20) H 03/14/24 07:06
Estimated Creat Clear 46 ml/min 03/15/24 05:47
Lactic Acid 1.9 mmol/L (0.7-2.0) 03/10/24 20:05
Total Bilirubin 1.0 mg/dl (0.2-1.3) 03/10/24 20:05
AST 42 U/L (14-36) H 03/10/24 20:05
ALT 20 U/L (0-35) 03/10/24 20:05
Alkaline Phosphatase 88 U/L (38-126) 03/10/24 20:05
C-Reactive Protein 48.90 mg/L (0.0-10.00) H 03/14/24 07:06
Most recent labs reviewed.
CT Scan: Image Reviewed and Report Reviewed
Microbiology: Report Reviewed
Micro Results:
03/11/24 16:55 Wound Culture - Preliminary
Abscess Pseudomonas aeruginosa
Klebsiella oxytoca - ESBL
Yeast
Gram Stain - Preliminary
Abdominal x-ray-03/13/2024-
Luminal contrast agent within the colon which is probably from esophagogram obtained on March 11, 2024 no evidence of excessive stool within the colon. No significantly dilated air-filled loops of bowel are identified.
Barium swallow x-ray-03/11/2024-
No architectural abnormalities, gastroesophageal reflux to the level of maria r, decreased esophageal motility.
Percutaneous drainage-03/11/2024-
CT-guided drainage of left tubo-ovarian abscess.
Other: Image Reviewed and Report Reviewed
--- NOTE | 2024-03-15 10:32 | W.PN.CRS1 ---
Today's Communication / Plan
-
continue IR drain
antibiotics
Assessment/Plan
-
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
Repeat imaging this presentation with 6.5 x 7 x 6.5 cm multilocular peridiverticular abscess along the left lateral margin of the sigmoid colon
PPD #4 IR drainage cx with pseudomonas, GNB and yeast. ID following for management of abx. Pain to IR drain site which is typical for this location
AFVSS
Acute urinary retention - gaona placed 03/13
Labs stable without leukocytosis
Plan:
-No plans for surgery at this time. She is scheduled for April [address] Griffith and Dr. Hanks. Discussed this with patient and son at the bedside today.
-Continue IR drain and follow cx. Will plan on d/c with IR drain.
-Trend labs
-Recommend urology if continues to retain
-Multimodal analgesics; tylenol, toradol, and tramadol prn
-Continue IV antibiotics as per ID
-Continue low residue diet
-Eliquis restarted 03/13
-OOB with PT/OT
Subjective Data
Procedure
03/11- IR drain placement
Subjective Data
Date of Service: March 15, 2024
Patient states she feels 'okay'. She states she has swollen feet. She ate her breakfast without difficulty. She has no abdominal pain.
Objective Data
-
Vital Signs
Temp Pulse Resp BP Pulse Ox
97.8 F 66 16 160/62 96
03/15/24 07:25 03/15/24 09:41 03/15/24 07:25 03/15/24 09:41 03/15/24 07:25
Intake & Output
03/14/24 03/15/24 03/16/24
06:59 06:59 06:59
Intake Total 485 / 485 1140 / 1140
Output Total 795 / 795 505 / 505
Balance -310 / -310 635 / 635 - -
Intake:
Oral fluids 480 / 480 1140 / 1140
Amount instilled into Drain (
Total)
Left Lower Sacrum Joesph-Zhu
A Placed in IR
Output:
Drain Output (Total) 45 / 45
Left Lower Sacrum Joesph-Zhu 45 / 45
A Placed in IR
Urine, Gaona 750 / 750
Urine, Voided 500 / 500
Other:
Number of unmeasured liquid
stools
Rectum 1 2 1
Lab Results
03/15/24 05:47
03/15/24 05:47
Physical Exam
-
General: No Acute Distress
Abdomen: Soft, Non Distended, Non Tender and Other (GRAHAM in place with rendon purulent discharge)
Skin: Warm and Dry
[2024-03-15] MEDS: MAGNESIUM SULFATE 50 IV (10:33)
[2024-03-15 11:10] VITALS: BP 139/56
--- NOTE | 2024-03-15 12:18 | PN.CDI ---
CDI
- -
CDI:
Physician Documentation Request
Admit Date: 03/10/24 23:47
Dear Doctor Roberto,
03/01 Hospitalist PN previous admission: 'Paroxysmal Atrial Fibrillation...Started on heparin infusion transitioned back to Eliquis'
03/14 Hospitalist PN: 'AFIB - cleared by surg to resume apixaban 03/13 - continue metoprolol for rate control'
If possible, please provide further specificity regarding atrial fibrillation, such as:
Paroxysmal atrial fibrillation - terminates spontaneously or with intervention within 7 days of onset
Persistent atrial fibrillation - episodes of continuous AF that last more than 7 days and do not self-terminate
Permanent atrial fibrillation - when a decision has been made to accept the presence of AF and there is no further attempt to restore or maintain sinus rhythm
Other - please specify
Unable to further specify
Use of terms such as suspected, likely, concern for, or probable (associated with a specific diagnosis that is being evaluated, monitored, or treated as if it exists) are acceptable and can be coded in the inpatient setting, when documented at the
time of discharge.
Thank you,
Casandra Tello RN, BSN
CDI Specialist
Available via [place] text
Please use your independent medical judgment in providing your response.
[2024-03-15] MEDS: MYCAMINE 105 MG IV (12:50)
--- NOTE | 2024-03-15 15:04 | CM ---
Reviewed the chart notes and spoke with the patient and her family at the bedside. Patient and family now in agreement with PT recommendation of SNF/rehab. Reviewed the list of area [facility] contain in the welcome packet at the bedside. CM continues
to be available to patient/family and is monitoring medical plan for needs at discharge.
Plan: Discharge to SNF/rehab when medically stable and bed found. No precert required.
[2024-03-15 15:25] VITALS: BP 109/49
[2024-03-15] MEDS: APRESOLINE PO (18:21)
[2024-03-15 19:28] VITALS: BP 143/52
[2024-03-15] MEDS: XALATAN OPHTHALMIC SOLUTION 1 DROP BOTH EYES (21:49)
[2024-03-15 23:32] VITALS: BP 134/52
[2024-03-16] VITALS (8 sets, daily range): BP systolic 107–171; BP diastolic 43–76; PULSE 68–75; O2SAT 96; BMI 27.0
--- NOTE | 2024-03-16 04:06 | DOWNTIME ---
There was a [employer] Machine [employer]er Downtime on 03/16/2024 from 0100 to 03/16/2024 at 0355. Downtime documentation of patient's care, including medication administrations, has been reconciled in the electronic record per guidelines. Refer to the
patient's paper chart under the miscellaneous tab to see printed paper medication records and downtime forms.
[2024-03-16 06:59] LABS: Hematocrit 31.1 % (37.0-47.0); Hemoglobin 10.6 g/dL (12.0-16.0); Mean Corp Hgb Conc. 34.1 g/dL (33.0-37.0); Mean Corpuscular Hgb 29.7 pg (27.0-31.0); Mean Corpuscular Volume 87.1 fL (81.0-99.0); Mean Platelet Volume 11.4 fL (7.4-10.4); Platelet Count 316 10^3/uL (130-400); Red Blood Cell Count 3.57 10^6/uL (4.20-5.40); Red Cell Dist. Width 13.9 % (11.5-14.5); White Blood Cell Count 8.6 10^3/uL (4.8-10.8)
--- NOTE | 2024-03-16 07:25 | W.PN.HOSP.TC ---
Today's Communication/Plan
-
cont abx antifungal as per ID
discharge planning SNF rehab
Assessment / Plan
Assessment / Plan
78 y.o female comes in with leukocytosis and abdominal pain, found to have recurrent peridiverticular abscess along the sigmoid colon.
PLAN:
1. Peridiverticular abscess with tubo-ovarian abscess, recurrent sigmoid diverticulitis
- Persistent peridiverticular abscess s/p temporary drainage on last admission and s/p Augmentin and diflucan course (to end 03/10). Recurrent leukocytosis starting about 4 days ago. No fevers chills. No other signs of active infection. Pain and
loose stools but no tenderness to palpation. She is non-toxic but looks generally fatigued.
- Appreciate ID and colorectal surgery input, status post drainage by IR 03/11, draining 10 mL of green purulent fluid - drain in place
- ID recommends treatment with Flagyl, micafungin switched to fluconazole, levofloxacin switched to cipro. 03/11 cultures growing Pseudomonas, grown negative rods, yeast
- No plans for surgery at this time. She is scheduled for April [address] Griffith and Dr. Hanks.
- Diet advanced to low residue tolerating
2. Hyponatremia/Hypokalemia
- Na 128. No acute symptoms. She is prone to low sodium with dehydration. She has been on lasix with about a 30 Ib weight loss since initiation. She is also on aldactone. Low PO intake on history and also on prozac. Dry oral mucosa, no
evidence of volume overload at this point.
- urine osmolality and urine sodium reviewed, suspect hypovolemic hyponatremia
- Repleted and resolved, cap IV fluids 03/13 due to LE edema, home Lasix resumed
3. HTN
- enalapril 40
- spironolactone 25
- metoprolol
- BP improved with adding hydralazine 75 mg 3 times daily 03/11
4. paroxysmal afib
- cleared by surg to resume apixaban 03/13
- continue metoprolol for rate control
5. GERD/Cough
- dry cough, reflux symptoms, suspect GERD related UACS.
- ppi iv daily for now
6. Aspiration
- Family reports aspiration with textured food but not liquids or soft foods and is tolerating oral meds
- Barium swallow negative except for decreased esophageal motility
- Consult SPL appreciated
7. Hypomagnesemia
- Repleted and resolved
8. Non-anion gap metabolic acidosis resolved
-bicarb supplement completed
9. Urinary retention
-She is having BM's - KUB appreciated no excessive stool burden, ruled out overflow
-Borjas inserted 03/13
10. GERD
Continue PPI
PT/OT appreciated SNF rehab
DVT PPX - apixaban
Code status - full code
discussed with patient and patient's son Arpit
Total time spent to see the patient on the floor, examine the patient, review data and lab results, discuss treatment plan with patient, nursing staff around 50 minutes.
Physical Exam
General: No acute distress
HEENT: Normocephalic, Atraumatic, EOMI, MMM
Respiratory: Clear to Auscultation bilaterally
Cardiac: Normal S1/S2, Regular Rate and Rhythm
GI: Soft, tender at the left lower quadrant, Nondistended, Normal Bowel Sounds
+Abd drain with serosanguineous drainage
Extremities: No Clubbing, Cyanosis
Bilateral lower extremity edema noted
Neuro: Nonfocal/Grossly Intact
Anticipated Discharge: 24 - 48 hours
Subjective/Interval History
-
Date of Service: March 16, 2024
No acute distress, appears comfortable at this time.
Objective Data
-
Labs:
Laboratory Results
03/16/24
06:22
WBC 8.6
Hgb 10.6 L
Hct 31.1 L
Plt Count 316
Sodium Pending
Potassium Pending
Chloride Pending
Carbon Dioxide Pending
BUN Pending
Creatinine Pending
Glucose Pending
Calcium Pending
Vital Signs:
Vital Signs
Temp Pulse Resp BP Pulse Ox
97.8 F 68 16 145/62 96
03/16/24 03:20 03/16/24 03:20 03/16/24 03:20 03/16/24 03:20 03/16/24 03:20
I&O
03/15/24 03/16/24 03/17/24
06:59 06:59 06:59
Intake Total 1140 / 1140 1919 / 1919
Output Total 505 / 505 1105 / 1105
Balance 635 / 635 815 / 815
[2024-03-16 08:10] LABS: Blood Urea Nitrogen 9 mg/dl (7-17); Calcium 8.6 mg/dl (8.4-10.2); Carbon Dioxide 28 mmol/L (22-30); Chloride 97 mmol/L (98-107); Estimated Creatinine Clearance 46 ml/min; Glucose 100 mg/dl (70-99); Magnesium 1.9 mg/dl (1.6-2.3); Phosphorus 3.1 mg/dl (2.5-4.5); Potassium 3.9 mmol/L (3.5-5.1); Sodium 134 mmol/L (135-145); eGFR > 60.00
--- NOTE | 2024-03-16 09:40 | W.PN.UPDATE ---
Update Note
Progress Note Update
I saw and evaluated the patient. I reviewed the resident�s separately documented note and agree with findings and plan as documented in the resident�s note with the following additions/corrections
SOAP
S
remains afebrile
no new complaints
drain output 5 ccs recorded
O:
aferbile, VSS, BP is hypertensive
Physical Exam
Constitutional: No Acute Distress
Cardiovascular: Regular Rate and S1/S2; Negative Murmur or Rub
Pulmonary: Clear and Symmetric; Negative Wheezes or Rales
Gastrointestinal: Soft, Non Tender, Non Distended and Normal Bowel Sounds
Skin: Warm and Dry; Negative Rash or Jaundice
DLOA: purulent drainage in the drain
labs:
wbc 8.6
hgb 10.6
cr 0.9
03/11 culture: PSA, ESBL K oxytoca, Saccharomyces cerevisiae
A&P:
Recurrent sigmoid diverticulitis
Pelvic Abscess - suspect diverticular abscess with secondarily involved TOA
- 03/11 s/p abscess drainage of green purulent fluid.
- Abscess culture cx: Pseudomonas, ESBL Klebsiella, and Saccharomyces cerevisiae
- counseled patient/family to avoid probiotics until the abscess has resolved
- continue ciprofloxacin and metronidazole
- start fluconazole, stop micafungin
- continue all three drugs through surgery (Apr 01)
- QTc has been acceptable, recheck this afternoon
- follow drain output may be dropping off - management per surgery
- eventual colon resection
AW
[2024-03-16] MEDS: VASOTEC 40 MG PO (09:41)
[2024-03-16] MEDS: LOPRESSOR 12.5 MG PO ×2 (09:42→21:07)
[2024-03-16] MEDS: FLAGYL 500 MG PO ×2 (09:42→18:12)
[2024-03-16] MEDS: PROTONIX 40 MG PO (09:42)
[2024-03-16] MEDS: FLOMAX 0.4 MG PO (09:42)
[2024-03-16] MEDS: CIPRO 500 MG PO ×2 (09:42→21:20)
[2024-03-16] MEDS: PROZAC 20 MG PO (09:43)
[2024-03-16] MEDS: ALDACTONE 25 MG PO (09:43)
[2024-03-16] MEDS: ELIQUIS 5 MG PO ×2 (09:44→21:02)
[2024-03-16] MEDS: APRESOLINE 75 MG PO ×2 (09:44→18:13)
[2024-03-16] MEDS: DESENEX/MITRAZOL/ZEASORB 1 APPLIC TOPICAL ×2 (09:44→21:02)
[2024-03-16] MEDS: TIMOPTIC 0.5% OPHTHALMIC SOLUTION 1 DROP BOTH EYES (09:45)
[2024-03-16] MEDS: NSS (PRESERVATIVE FREE) IV (09:45)
[2024-03-16] MEDS: LASIX 20 MG PO (09:50)
--- NOTE | 2024-03-16 10:24 | W.PN.CRS1 ---
Today's Communication / Plan
-
continue IR drain
okay for d/c from our standpoint, follow up with Dr. Griffith in 1 week
Assessment/Plan
-
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
Repeat imaging this presentation with 6.5 x 7 x 6.5 cm multilocular peridiverticular abscess along the left lateral margin of the sigmoid colon
PPD #5 IR drainage cx with pseudomonas, GNB and yeast. ID following for management of abx. Pain to IR drain site which is typical for this location
AFVSS
Labs stable without leukocytosis
Plan:
-No plans for surgery at this time. She is scheduled for April [address] Griffith and Dr. Hanks. Discussed this with patient and son at the bedside today.
-Continue IR drain and follow cx. Discharge with the IR drain.
-Recommend urology if continues to retain
-Multimodal analgesics; tylenol, toradol, and tramadol prn
-Continue IV antibiotics as per ID
-Continue low residue diet
-Eliquis restarted 03/13
-OOB with PT/OT
-Okay for discharge from our standpoint, she will need a telehealth follow up in [address] Griffith for surgical discussion. Surgical packet given to son at the bedside.
Subjective Data
Procedure
03/11- IR drain placement
Subjective Data
Date of Service: March 16, 2024
Patient states she feels the same. She has no complaints. Her pain is controlled. She is having bowel function.
Objective Data
-
Vital Signs
Temp Pulse Resp BP Pulse Ox
98.2 F 66 14 168/69 96
03/16/24 07:25 03/16/24 09:41 03/16/24 07:25 03/16/24 09:41 03/16/24 07:25
Intake & Output
03/15/24 03/16/24 03/17/24
06:59 06:59 06:59
Intake Total 1140 / 1140 1919
Output Total 505 / 505 1105 / 1105
Balance 635 / 635 815 / 815
Intake:
Oral fluids 1140 / 1140 1919
Output:
Drain Output (Total)
Left Lower Sacrum Joesph-Zhu
A Placed in IR
Urine, Borjas 1100 / 1100
Urine, Voided 500 / 500
Other:
Number of unmeasured liquid
stools
Rectum 2 1
Lab Results
03/16/24 06:22
03/16/24 06:22
Physical Exam
-
General: No Acute Distress and AOx3
Abdomen: Soft, Non Distended, Non Tender and Other (purulent GRAHAM drain output)
Skin: Warm and Dry
--- NOTE | 2024-03-16 10:38 | CM ---
Reviewed the chart notes and spoke with the patient's son at the bedside. Patient son provided SNF preferences: [facility]; [facility], and [facility]. Referrals sent. CM continues to be available to patient/family and is monitoring
medical plan for needs at discharge.
Plan: Discharge to SNF/rehab when medically stable and bed found. No precert required.
[2024-03-16] MEDS: DIFLUCAN 400 MG PO (10:54)
--- NOTE | 2024-03-16 11:05 | PTCARENOTE ---
Pts BP this AM was 168/69. Scheduled BP medications administered. BP rechecked at 114/43.
--- NOTE | 2024-03-16 12:15 | PTCARENOTE ---
Borjas pulled at 0600, pt due to void at 1200 this afternoon. Pt still did not void, bladder scan showing 115. Pt encouraged to try to void.
--- NOTE | 2024-03-16 16:40 | W.PN.ID1 ---
Addendum entered and electronically signed by Alethea Enriquez MD 03/17/24 09:30:
I saw and evaluated the patient. I reviewed the resident�s note and agree with findings and plan as documented in the resident�s note with the corrections in my separately documented note.
Original Note:
Date of Service
Date of Service: March 16, 2024
Today's Communication
Start fluconazole,
Continue prophylaxis and then metronidazole.
Assessment / Plan
Assessment-
78-year-old female with past medical history significant for sigmoid diverticulitis, and congestive heart failure is admitted to the hospital for elevated white blood cell counts and loss of appetite, diagnosed with recurrent sigmoid diverticulitis
and associated abscess.
Subjective-swelling of feet is improving. In the context of CHF.
Mnkzwmtiu-cbjgpyffuahb-qccclfrp.
Abscess cultures positive for Pseudomonas aeruginosa, Klebsiella-ESBL and yeast. Sensitivities-Pseudomonas and Klebsiella-fluoroquinolones, Saccharomyces cerivisiae
Pelvic Abscess - suspect diverticular abscess with secondarily involved TOA
Plan-
Currently on ciprofloxacin, continue metronidazole.
Stop micafungin. Started patient on fluconazole.
No QT prolongation noted.
GRAHAM drain output noted.
Plan for colon resection and 2 weeks.
Chief Complaint
-: Other (Diverticulitis with abscess)
Subjective / Review of Systems
Swelling of feet is improving. Review of systems is negative.
Vital Signs / Physical Exam
Vital Signs
Vital Signs
Temp Pulse Resp BP Pulse Ox
97.6 F 63 18 152/60 96
03/16/24 15:20 03/16/24 15:20 03/16/24 15:20 03/16/24 15:20 03/16/24 15:20
Physical Exam
Constitutional: Comfortable
Cardiovascular: Regular Rate and S1/S2; Negative Murmur, Rub or Gallop
Pulmonary: Clear; Negative Wheezes, Rales or Rhonchi
Gastrointestinal: Soft, Non Tender, Non Distended, Normal Bowel Sounds and Other (GRAHAM drain with greenish purulent and blood-tinged discharge.)
Genito-Urinary: Borjas
Extremities: Edema (1+ pitting edema, improving.)
Neurological: Awake and Alert
Objective Data
Lab Data
Lab Results
03/16/24 06:22
03/16/24 06:22
ESR 30 mm/hour (0-20) H 03/14/24 07:06
Estimated Creat Clear 46 ml/min 03/16/24 06:22
Lactic Acid 1.9 mmol/L (0.7-2.0) 03/10/24 20:05
Total Bilirubin 1.0 mg/dl (0.2-1.3) 03/10/24 20:05
AST 42 U/L (14-36) H 03/10/24 20:05
ALT 20 U/L (0-35) 03/10/24 20:05
Alkaline Phosphatase 88 U/L (38-126) 03/10/24 20:05
C-Reactive Protein 48.90 mg/L (0.0-10.00) H 03/14/24 07:06
Most recent labs reviewed.
Micro Results:
03/11/24 16:55 Wound Culture - Final
Abscess Pseudomonas aeruginosa
Klebsiella oxytoca - ESBL
Saccharomyces cerevisiae
Gram Stain - Final
Abdominal x-ray-03/13/2024-
Luminal contrast agent within the colon which is probably from esophagogram obtained on March 11, 2024 no evidence of excessive stool within the colon. No significantly dilated air-filled loops of bowel are identified.
Barium swallow x-ray-03/11/2024-
No architectural abnormalities, gastroesophageal reflux to the level of maria r, decreased esophageal motility.
Percutaneous drainage-03/11/2024-
CT-guided drainage of left tubo-ovarian abscess.
--- NOTE | 2024-03-16 18:05 | PTCARENOTE ---
Pt voided a saturated incontinent amount of urine and a moderate amount of urine in bed de la cruz, post void residual was 203 at 1800.
[2024-03-16] MEDS: APRESOLINE PO (21:07)
[2024-03-16] MEDS: XALATAN OPHTHALMIC SOLUTION 1 DROP BOTH EYES (21:12)
[2024-03-17] MEDS: FLAGYL 500 MG PO ×4 (00:01→23:21)
[2024-03-17 03:32] VITALS: BP 150/59
[2024-03-17 05:11] VITALS: BMI 27.0
[2024-03-17 07:00] VITALS: BP 165/64
[2024-03-17 07:29] LABS: Hematocrit 30.1 % (37.0-47.0); Hemoglobin 10.1 g/dL (12.0-16.0); Mean Corp Hgb Conc. 33.6 g/dL (33.0-37.0); Mean Corpuscular Hgb 29.4 pg (27.0-31.0); Mean Corpuscular Volume 87.8 fL (81.0-99.0); Mean Platelet Volume 11.6 fL (7.4-10.4); Platelet Count 292 10^3/uL (130-400); Red Blood Cell Count 3.43 10^6/uL (4.20-5.40); White Blood Cell Count 8.9 10^3/uL (4.8-10.8)
--- NOTE | 2024-03-17 07:29 | W.PN.HOSP.TC ---
Today's Communication/Plan
-
Medically stable for discharge pending placement
Assessment / Plan
Assessment / Plan
78 y.o female comes in with leukocytosis and abdominal pain, found to have recurrent peridiverticular abscess along the sigmoid colon.
PLAN:
1. Peridiverticular abscess with tubo-ovarian abscess, recurrent sigmoid diverticulitis
- Persistent peridiverticular abscess s/p temporary drainage on last admission and s/p Augmentin and diflucan course (to end 03/10). Recurrent leukocytosis starting about 4 days ago. No fevers chills. No other signs of active infection. Pain and
loose stools but no tenderness to palpation. She is non-toxic but looks generally fatigued.
- Appreciate ID and colorectal surgery input, status post drainage by IR 03/11, draining 10 mL of green purulent fluid - drain in place
- ID recommends treatment with Flagyl, micafungin switched to fluconazole, levofloxacin switched to cipro. 03/11 cultures growing Pseudomonas, grown negative rods, yeast
- No plans for surgery at this time. She is scheduled for April [address] Griffith and Dr. Hanks.
- Diet advanced to low residue tolerating
2. Hyponatremia/Hypokalemia
- Na 128. No acute symptoms. She is prone to low sodium with dehydration. She has been on lasix with about a 30 Ib weight loss since initiation. She is also on aldactone. Low PO intake on history and also on prozac. Dry oral mucosa, no
evidence of volume overload at this point.
- urine osmolality and urine sodium reviewed, suspect hypovolemic hyponatremia
- Repleted and resolved, cap IV fluids 03/13 due to LE edema, home Lasix resumed
3. HTN
- enalapril 40
- spironolactone 25
- metoprolol
- BP improved with adding hydralazine 75 mg 3 times daily 03/11
4. paroxysmal afib
- cleared by surg to resume apixaban 03/13
- continue metoprolol for rate control
5. GERD/Cough
- dry cough, reflux symptoms, suspect GERD related UACS.
- ppi iv daily for now
6. Aspiration
- Family reports aspiration with textured food but not liquids or soft foods and is tolerating oral meds
- Barium swallow negative except for decreased esophageal motility
- Consult SPL appreciated
7. Hypomagnesemia
- Repleted and resolved
8. Non-anion gap metabolic acidosis resolved
-bicarb supplement completed
9. Urinary retention
-She is having BM's - KUB appreciated no excessive stool burden, ruled out overflow
-Borjas inserted 03/13
-Borjas since discontinued, passed trial of void
10. GERD
Continue PPI
PT/OT appreciated SNF rehab
DVT PPX - apixaban
Code status - full code
Medically stable for discharge pending placement
discussed with patient and patient's son Arpit
Total time spent to see the patient on the floor, examine the patient, review data and lab results, discuss treatment plan with patient, nursing staff around 40 minutes.
Physical Exam
General: No acute distress
HEENT: Normocephalic, Atraumatic, EOMI, MMM
Respiratory: Clear to Auscultation bilaterally
Cardiac: Normal S1/S2, Regular Rate and Rhythm
GI: Soft, tender at the left lower quadrant, Nondistended, Normal Bowel Sounds
+Abd drain with serosanguineous drainage
Extremities: No Clubbing, Cyanosis
Bilateral lower extremity edema noted
Neuro: Nonfocal/Grossly Intact
Anticipated Discharge: Within 24 hours
Subjective/Interval History
-
Date of Service: March 17, 2024
No acute distress appears comfortable sitting up in chair. Son Arpit present during evaluation.
Objective Data
-
Labs:
Laboratory Results
03/17/24
05:45
WBC 8.9
Hgb 10.1 L
Hct 30.1 L
Plt Count 292
Sodium Pending
Potassium Pending
Chloride Pending
Carbon Dioxide Pending
BUN Pending
Creatinine Pending
Glucose Pending
Calcium Pending
Vital Signs:
Vital Signs
Temp Pulse Resp BP Pulse Ox
98.5 F 69 16 150/59 96
03/17/24 03:32 03/17/24 03:32 03/17/24 03:32 03/17/24 03:32 03/17/24 03:32
I&O
03/16/24 03/17/24 03/18/24
06:59 06:59 06:59
Intake Total 0 / 1920 1685 / 1685
Output Total 1105 / 1105 25 / 25
Balance 815 / 815 1660 / 1660
[2024-03-17 07:52] LABS: Blood Urea Nitrogen 10 mg/dl (7-17); Calcium 8.6 mg/dl (8.4-10.2); Carbon Dioxide 28 mmol/L (22-30); Chloride 98 mmol/L (98-107); Estimated Creatinine Clearance 46 ml/min; Glucose 94 mg/dl (70-99); Magnesium 1.7 mg/dl (1.6-2.3); Phosphorus 3.3 mg/dl (2.5-4.5); Potassium 3.6 mmol/L (3.5-5.1); Sodium 133 mmol/L (135-145); eGFR > 60.00
--- NOTE | 2024-03-17 08:13 | W.PN.ID1 ---
Addendum entered and electronically signed by Alethea Enriquez MD 03/17/24 16:33:
I saw and evaluated the patient. I reviewed the resident�s note and agree with findings and plan as documented in the resident�s note.
continue ciprofloxacin, metronidazole and fluconazole through the surgery
stable for dc from ID perspective
AW
Original Note:
Date of Service
Date of Service: March 17, 2024
Today's Communication
Continue ciprofloxacin, metronidazole.
Continue fluconazole
Assessment / Plan
Assessment-
78-year-old female with past medical history significant for sigmoid diverticulitis, and congestive heart failure is admitted to the hospital for elevated white blood cell counts and loss of appetite, diagnosed with recurrent sigmoid diverticulitis
and associated abscess.
Subjective-swelling of feet is improving. In the context of CHF. Appetite improved. was able to eat 3 meals yesterday.
Cwunszjxf-xufucneirfeq-loynueju.
Abscess cultures positive for Pseudomonas aeruginosa, Klebsiella-ESBL and yeast. Sensitivities-Pseudomonas and Klebsiella-fluoroquinolones, Saccharomyces cerivisiae
Pelvic Abscess - suspect diverticular abscess.
Plan-
Currently on ciprofloxacin, continue metronidazole.
Stop micafungin. Started patient on fluconazole.
No QT prolongation noted.
GRAHAM drain output noted at 25cc over 24 hrs.
Plan for colon resection and 2 weeks.
Chief Complaint
-: Other (Diverticulitis with abscess)
Subjective / Review of Systems
Review of Systems: No Fever, No Chills, No Headache, No Pharyngitis, No Cough, No Sputum Production, No Chest Pain, No Palpitations, No Nausea, No Vomiting, No Diarrhea and No Dysuria
Vital Signs / Physical Exam
Vital Signs
Vital Signs
Temp Pulse Resp BP Pulse Ox
98.5 F 69 16 150/59 96
03/17/24 03:32 03/17/24 03:32 03/17/24 03:32 03/17/24 03:32 03/17/24 03:32
Physical Exam
Constitutional: Comfortable
Cardiovascular: Regular Rate and S1/S2; Negative Murmur, Rub or Gallop
Pulmonary: Clear; Negative Wheezes, Rales or Rhonchi
Gastrointestinal: Soft, Non Tender, Non Distended and Normal Bowel Sounds
Extremities: Edema (1+ mpitting edema) and Pulses (Dorsalis pedis 2+); Negative Erythema
Skin: Warm
Neurological: Awake
Psychological: Calm
Objective Data
Lab Data
Lab Results
03/17/24 05:45
03/17/24 05:45
ESR 30 mm/hour (0-20) H 03/14/24 07:06
Estimated Creat Clear 46 ml/min 03/17/24 05:45
Lactic Acid 1.9 mmol/L (0.7-2.0) 03/10/24 20:05
Total Bilirubin 1.0 mg/dl (0.2-1.3) 03/10/24 20:05
AST 42 U/L (14-36) H 03/10/24 20:05
ALT 20 U/L (0-35) 03/10/24 20:05
Alkaline Phosphatase 88 U/L (38-126) 03/10/24 20:05
C-Reactive Protein 48.90 mg/L (0.0-10.00) H 03/14/24 07:06
Most recent labs reviewed.
Micro Results:
03/11/24 16:55 Wound Culture - Final
Abscess Pseudomonas aeruginosa
Klebsiella oxytoca - ESBL
Saccharomyces cerevisiae
Gram Stain - Final
Abdominal x-ray-03/13/2024-
Luminal contrast agent within the colon which is probably from esophagogram obtained on March 11, 2024 no evidence of excessive stool within the colon. No significantly dilated air-filled loops of bowel are identified.
Barium swallow x-ray-03/11/2024-
No architectural abnormalities, gastroesophageal reflux to the level of maria r, decreased esophageal motility.
Percutaneous drainage-03/11/2024-
CT-guided drainage of left tubo-ovarian abscess.
[2024-03-17] MEDS: TIMOPTIC 0.5% OPHTHALMIC SOLUTION 1 DROP BOTH EYES (08:53)
[2024-03-17] MEDS: LOPRESSOR 12.5 MG PO ×2 (08:53→19:26)
[2024-03-17] MEDS: PROTONIX 40 MG PO (08:57)
[2024-03-17] MEDS: FLOMAX 0.4 MG PO (08:57)
[2024-03-17] MEDS: VASOTEC 40 MG PO (08:57)
[2024-03-17] MEDS: ELIQUIS 5 MG PO ×2 (08:57→19:26)
[2024-03-17] MEDS: DIFLUCAN 400 MG PO (08:58)
[2024-03-17] MEDS: PROZAC 20 MG PO (08:58)
[2024-03-17] MEDS: CIPRO 500 MG PO ×2 (08:58→19:26)
[2024-03-17] MEDS: APRESOLINE 75 MG PO ×2 (08:58→15:46)
[2024-03-17] MEDS: NSS (PRESERVATIVE FREE) IV (08:59)
[2024-03-17] MEDS: ALDACTONE 25 MG PO (08:59)
[2024-03-17] MEDS: DESENEX/MITRAZOL/ZEASORB 1 APPLIC TOPICAL ×2 (09:00→19:26)
[2024-03-17 11:20] VITALS: BP 140/58
[2024-03-17 15:10] VITALS: BP 149/59
--- NOTE | 2024-03-17 16:14 | CM ---
Reviewed the chart notes and spoke with the patient and her son at the bedside. IMM reviewed. The only two facilities able to accept the patient are [facility] and [facility]. They selected [facility]. Rosy Admissions Liaison notified.
continues to be available to patient/family and is monitoring medical plan for needs at discharge.
Plan: Discharge to [facility] when medically stable. No precert required.
[2024-03-17 19:23] VITALS: BP 129/83
[2024-03-17] MEDS: XALATAN OPHTHALMIC SOLUTION 1 DROP BOTH EYES (21:34)
[2024-03-17] MEDS: APRESOLINE PO (21:40)
[2024-03-17] MEDS: TYLENOL 650 MG PO (21:44)
[2024-03-17 23:37] VITALS: BP 133/59
[2024-03-18 03:34] VITALS: BP 142/55
[2024-03-18 06:00] VITALS: BMI 26.8
[2024-03-18 07:20] VITALS: BP 162/75
--- NOTE | 2024-03-18 07:22 | W.PN.HOSP.TC ---
Today's Communication/Plan
-
Compression VEENA wraps lower ext's b/l
cont home Lasix
PT/OT
cont abx antifungal
Discharge planning SNF rehab tomorrow
Assessment / Plan
Assessment / Plan
78 y.o female comes in with leukocytosis and abdominal pain, found to have recurrent peridiverticular abscess along the sigmoid colon.
PLAN:
#Peridiverticular abscess with tubo-ovarian abscess, recurrent sigmoid diverticulitis
- Persistent peridiverticular abscess s/p temporary drainage on last admission and s/p Augmentin and diflucan course (to end 03/10). Recurrent leukocytosis starting about 4 days ago. No fevers chills. No other signs of active infection. Pain and
loose stools but no tenderness to palpation. She is non-toxic but looks generally fatigued.
- Appreciate ID and colorectal surgery input, status post drainage by IR 03/11, draining 10 mL of green purulent fluid - drain in place
- ID recommends treatment with Flagyl, micafungin switched to fluconazole, levofloxacin switched to cipro. 03/11 cultures growing Pseudomonas, grown negative rods, yeast
- No plans for surgery at this time. She is scheduled for April [address] Griffith and Dr. Hanks.
- Diet advanced to low residue tolerating
# Hyponatremia/Hypokalemia
- Na 128. No acute symptoms. She is prone to low sodium with dehydration. She has been on lasix with about a 30 Ib weight loss since initiation. She is also on aldactone. Low PO intake on history and also on prozac. Dry oral mucosa, no
evidence of volume overload at this point.
- urine osmolality and urine sodium reviewed, suspect hypovolemic hyponatremia
- Repleted and resolved, cap IV fluids 03/13 due to LE edema, home Lasix resumed
# HTN
- enalapril 40
- spironolactone 25
- metoprolol
- BP improved with adding hydralazine 75 mg 3 times daily 03/11
# paroxysmal afib
- cleared by surg to resume apixaban 03/13
- continue metoprolol for rate control
# GERD/Cough
- dry cough, reflux symptoms, suspect GERD related UACS.
- ppi iv daily for now
# Aspiration
- Family reports aspiration with textured food but not liquids or soft foods and is tolerating oral meds
- Barium swallow negative except for decreased esophageal motility
- Consult SPL appreciated
# Hypomagnesemia
- Repleted and resolved
# Non-anion gap metabolic acidosis resolved
-bicarb supplement completed
# Urinary retention
-She is having BM's - KUB appreciated no excessive stool burden, ruled out overflow
-Borjas inserted 03/13
-Borjas since discontinued, passed trial of void
# GERD
Continue PPI
#Lower ext pedal edema L>R
painless
Venous duplex neg for DVT
Left Ankle X-ray noted no acute abn's
suspect combination Fluid overload (from recent hold on Lasix and IVF support since discontinued and Lasix resumed) vs Lymphedema
compression VEENA wraps ordered b/l lower ext's
PT/OT appreciated SNF rehab
DVT PPX - apixaban
Code status - full code
discussed with patient, patient's son Arpit, and patient's fczlmwfx-nu-qbb Deanna
Total time spent to see the patient on the floor, examine the patient, review data and lab results, discuss treatment plan with patient, nursing staff around 40 minutes.
Physical Exam
General: No acute distress
HEENT: Normocephalic, Atraumatic, EOMI, MMM
Respiratory: Clear to Auscultation bilaterally
Cardiac: Normal S1/S2, Regular Rate and Rhythm
GI: Soft, tender at the left lower quadrant, Nondistended, Normal Bowel Sounds
+Abd drain with serosanguineous drainage
Extremities: No Clubbing, Cyanosis, LE swelling pedal edema Left>Right nontender
Bilateral lower extremity edema noted
Neuro: Nonfocal/Grossly Intact
Anticipated Discharge: Within 24 hours
Subjective/Interval History
-
Date of Service: March 18, 2024
No acute distress, sitting up comfortably in chair. Noted asymmetric swelling lower ext's Left > right. Denies pain/numbness, able to wriggle toes. Otherwise overall reports feeling well. Son Arpit and inctxmws-eu-dbm Deanna present during
evaluation.
Objective Data
-
Vital Signs:
Vital Signs
Temp Pulse Resp BP Pulse Ox
98.1 F 66 19 142/55 97
03/18/24 03:34 03/18/24 03:34 03/18/24 03:34 03/18/24 03:34 03/18/24 03:34
I&O
03/17/24 03/18/24 03/19/24
06:59 06:59 06:59
Intake Total 1685 / 1685 1260 / 1260
Output Total
Balance 1660 / 1660 1252 / 1252
--- NOTE | 2024-03-18 08:01 | W.PN.ID1 ---
Addendum entered and electronically signed by Alethea Enriquez MD 03/18/24 19:03:
I saw and evaluated the patient. I reviewed the resident�s note and agree with findings and plan as documented in the resident�s note.
continue antibiotics/antifungals through surgery
stable for dc from ID perspective
Original Note:
Date of Service
Date of Service: March 18, 2024
Today's Communication
Stable for discharge on current medication regimen from ID perspective.
Assessment / Plan
Assessment-
78-year-old female with past medical history significant for sigmoid diverticulitis, and congestive heart failure is admitted to the hospital for elevated white blood cell counts and loss of appetite, diagnosed with recurrent sigmoid diverticulitis
and associated abscess.
Subjective-swelling of feet is improving. In the context of CHF. Appetite improved. was able to eat 3 meals yesterday.
Tretcimbs-nddwagkyvidn-tftjeqxk.
Abscess cultures positive for Pseudomonas aeruginosa, Klebsiella-ESBL and yeast. Sensitivities-Pseudomonas and Klebsiella-fluoroquinolones, Saccharomyces cerivisiae
Pelvic Abscess - suspect diverticular abscess.
Plan-
Currently on ciprofloxacin, continue metronidazole and fluconazole.
No QT prolongation noted.
GRAAHM drain output noted at 8 cc over 24 hrs.
Plan for colon resection and 2 weeks.
Chief Complaint
-: Other (Diverticulitis with abscess)
Subjective / Review of Systems
Review of Systems: No Fever, No Chills, No Headache, No Pharyngitis, No Cough, No Sputum Production, No Chest Pain, No Palpitations, No Abdominal Pain, No Nausea, No Diarrhea and No Dysuria
Vital Signs / Physical Exam
Vital Signs
Vital Signs
Temp Pulse Resp BP Pulse Ox
98.1 F 66 19 142/55 97
03/18/24 03:34 03/18/24 03:34 03/18/24 03:34 03/18/24 03:34 03/18/24 03:34
Physical Exam
Constitutional: Comfortable
Cardiovascular: Regular Rate and S1/S2; Negative Murmur, Rub or Gallop
Pulmonary: Clear; Negative Wheezes, Rales or Rhonchi
Gastrointestinal: Soft, Non Tender, Non Distended, Normal Bowel Sounds and Other (GRAHAM drain with greenish purulent discharge-5 cc noted.)
Extremities: Edema (1+ pitting.)
Neurological: Awake and Alert
Psychological: Calm
Objective Data
Lab Data
Lab Results
03/17/24 05:45
03/17/24 05:45
ESR 30 mm/hour (0-20) H 03/14/24 07:06
Estimated Creat Clear 46 ml/min 03/17/24 05:45
Lactic Acid 1.9 mmol/L (0.7-2.0) 03/10/24 20:05
Total Bilirubin 1.0 mg/dl (0.2-1.3) 03/10/24 20:05
AST 42 U/L (14-36) H 03/10/24 20:05
ALT 20 U/L (0-35) 03/10/24 20:05
Alkaline Phosphatase 88 U/L (38-126) 03/10/24 20:05
C-Reactive Protein 48.90 mg/L (0.0-10.00) H 03/14/24 07:06
Most recent labs reviewed.
Micro Results:
03/11/24 16:55 Wound Culture - Final
Abscess Pseudomonas aeruginosa
Klebsiella oxytoca - ESBL
Saccharomyces cerevisiae
Gram Stain - Final
Abdominal x-ray-03/13/2024-
Luminal contrast agent within the colon which is probably from esophagogram obtained on March 11, 2024 no evidence of excessive stool within the colon. No significantly dilated air-filled loops of bowel are identified.
Barium swallow x-ray-03/11/2024-
No architectural abnormalities, gastroesophageal reflux to the level of maria r, decreased esophageal motility.
Percutaneous drainage-03/11/2024-
CT-guided drainage of left tubo-ovarian abscess.
[2024-03-18] MEDS: VASOTEC 40 MG PO (09:36)
[2024-03-18] MEDS: PROTONIX 40 MG PO (09:37)
[2024-03-18] MEDS: DIFLUCAN 400 MG PO (09:38)
[2024-03-18] MEDS: FLOMAX 0.4 MG PO (09:38)
[2024-03-18] MEDS: ALDACTONE 25 MG PO (09:38)
[2024-03-18] MEDS: CIPRO 500 MG PO ×2 (09:38→22:02)
[2024-03-18] MEDS: FLAGYL 500 MG PO ×2 (09:38→16:14)
[2024-03-18] MEDS: PROZAC 20 MG PO (09:39)
[2024-03-18] MEDS: LOPRESSOR 12.5 MG PO ×2 (09:39→22:06)
[2024-03-18] MEDS: APRESOLINE 75 MG PO ×2 (09:39→16:15)
[2024-03-18] MEDS: DESENEX/MITRAZOL/ZEASORB 1 APPLIC TOPICAL ×2 (09:40→22:04)
[2024-03-18] MEDS: NSS (PRESERVATIVE FREE) IV (09:40)
[2024-03-18] MEDS: ELIQUIS 5 MG PO ×2 (09:40→22:05)
[2024-03-18] MEDS: TIMOPTIC 0.5% OPHTHALMIC SOLUTION 1 DROP BOTH EYES (09:40)
[2024-03-18] MEDS: LASIX 20 MG PO (09:42)
[2024-03-18 09:57] VITALS: BP 162/75; PULSE 69
--- NOTE | 2024-03-18 10:05 | CM ---
Reviewed the chart notes and spoke with the patient's son and patient at the bedside. Per attending, ready for discharge tomorrow to SNF. CM continues to be available to patient/family and is monitoring medical plan for needs at discharge.
Plan: Discharge to [facility] when medically stable.
Call report to: [phone]
Fax report to: [phone]
Medical necessity and transport forms on chart.
[2024-03-18 13:55] LABS: ALT (SGPT) 14 U/L (0-35); AST (SGOT) 31 U/L (14-36); Alkaline Phosphatase 53 U/L (38-126); Blood Urea Nitrogen 10 mg/dl (7-17); Calcium 9.2 mg/dl (8.4-10.2); Carbon Dioxide 26 mmol/L (22-30); Chloride 95 mmol/L (98-107); Estimated Creatinine Clearance 46 ml/min; Glucose 122 mg/dl (70-99); Potassium 3.7 mmol/L (3.5-5.1); Sodium 132 mmol/L (135-145); Total Bilirubin 0.5 mg/dl (0.2-1.3); Total Protein 5.5 g/dl (6.3-8.2); eGFR > 60.00
[2024-03-18] MEDS: TYLENOL 650 MG PO (22:03)
[2024-03-18] MEDS: XALATAN OPHTHALMIC SOLUTION 1 DROP BOTH EYES (22:10)
[2024-03-18 23:45] VITALS: BP 134/73
[2024-03-18] MEDS: APRESOLINE PO (23:57)
[2024-03-19] MEDS: FLAGYL 500 MG PO ×4 (00:05→23:00)
[2024-03-19 06:00] VITALS: BMI 26.4
[2024-03-19 07:25] VITALS: BP 156/77
--- NOTE | 2024-03-19 07:46 | W.PN.HOSP.TC ---
Today's Communication/Plan
-
Medically stable for discharge awaiting bed availability SNF rehab
Assessment / Plan
Assessment / Plan
78 y.o female comes in with leukocytosis and abdominal pain, found to have recurrent peridiverticular abscess along the sigmoid colon.
PLAN:
#Peridiverticular abscess with tubo-ovarian abscess, recurrent sigmoid diverticulitis
- Persistent peridiverticular abscess s/p temporary drainage on last admission and s/p Augmentin and diflucan course (to end 03/10). Recurrent leukocytosis starting about 4 days ago. No fevers chills. No other signs of active infection. Pain and
loose stools but no tenderness to palpation. She is non-toxic but looks generally fatigued.
- Appreciate ID and colorectal surgery input, status post drainage by IR 03/11, draining 10 mL of green purulent fluid - drain in place
- ID recommends treatment with Flagyl, micafungin switched to fluconazole, levofloxacin switched to cipro. 03/11 cultures growing Pseudomonas, grown negative rods, yeast
- No plans for surgery at this time. She is scheduled for April [address] Griffith and Dr. Hanks.
- Diet advanced to low residue tolerating
# Hyponatremia/Hypokalemia
- Na 128. No acute symptoms. She is prone to low sodium with dehydration. She has been on lasix with about a 30 Ib weight loss since initiation. She is also on aldactone. Low PO intake on history and also on prozac. Dry oral mucosa, no
evidence of volume overload at this point.
- urine osmolality and urine sodium reviewed, suspect hypovolemic hyponatremia
- Repleted and resolved, cap IV fluids 03/13 due to LE edema, home Lasix resumed
# HTN
- enalapril 40
- spironolactone 25
- metoprolol
- BP improved with adding hydralazine 75 mg 3 times daily 03/11
# paroxysmal afib
- cleared by surg to resume apixaban 03/13
- continue metoprolol for rate control
# GERD/Cough
- dry cough, reflux symptoms, suspect GERD related UACS.
- ppi iv daily for now
# Aspiration
- Family reports aspiration with textured food but not liquids or soft foods and is tolerating oral meds
- Barium swallow negative except for decreased esophageal motility
- Consult SPL appreciated
# Hypomagnesemia
- Repleted and resolved
# Non-anion gap metabolic acidosis resolved
-bicarb supplement completed
# Urinary retention
-She is having BM's - KUB appreciated no excessive stool burden, ruled out overflow
-Borjas inserted 03/13
-Borjas since discontinued, passed trial of void
# GERD
Continue PPI
#Lower ext pedal edema L>R
painless
Venous duplex neg for DVT
Left Ankle X-ray noted no acute abn's
suspect combination Fluid overload (from recent hold on Lasix and IVF support since discontinued and Lasix resumed) vs Lymphedema vs hypoalbuminemia
compression VEENA wraps b/l lower ext's
PT/OT appreciated SNF rehab
DVT PPX - apixaban
Code status - full code
Medically stable for discharge SNF rehab awaiting bed availability.
discussed with patient and patient's son Arpit
Total time spent to see the patient on the floor, examine the patient, review data and lab results, discuss treatment plan with patient, nursing staff around 35 minutes.
Physical Exam
General: No acute distress
HEENT: Normocephalic, Atraumatic, EOMI, MMM
Respiratory: Clear to Auscultation bilaterally
Cardiac: Normal S1/S2, Regular Rate and Rhythm
GI: Soft, tender at the left lower quadrant, Nondistended, Normal Bowel Sounds
+Abd drain with serosanguineous drainage
Extremities: No Clubbing, Cyanosis, LE swelling pedal edema Left>Right nontender
Bilateral lower extremity VEENA wraps compression therapy in place
Neuro: Nonfocal/Grossly Intact
Anticipated Discharge: Within 24 hours
Subjective/Interval History
-
Date of Service: March 19, 2024
No acute distress. Reports improvement in lower ext swelling.
Objective Data
-
Vital Signs:
Vital Signs
Temp Pulse Resp BP Pulse Ox
98.0 F 79 16 134/73 96
03/18/24 23:45 03/18/24 23:57 03/18/24 23:45 03/18/24 23:57 03/19/24 01:44
I&O
03/18/24 03/19/24 03/20/24
06:59 06:59 06:59
Intake Total 1260 / 1260 945 / 945 120 / 120
Output Total
Balance 1252 / 1252 945 / 945 120 / 120
[2024-03-19] MEDS: FLOMAX 0.4 MG PO (09:47)
[2024-03-19] MEDS: VASOTEC 40 MG PO (09:47)
[2024-03-19] MEDS: LOPRESSOR 12.5 MG PO ×2 (09:47→20:43)
[2024-03-19] MEDS: APRESOLINE 75 MG PO ×2 (09:48→22:57)
[2024-03-19] MEDS: ALDACTONE 25 MG PO (09:49)
[2024-03-19] MEDS: DIFLUCAN 400 MG PO (09:50)
[2024-03-19] MEDS: PROZAC 20 MG PO (09:50)
[2024-03-19] MEDS: CIPRO 500 MG PO ×2 (09:50→20:31)
[2024-03-19] MEDS: ELIQUIS 5 MG PO ×2 (09:50→20:32)
[2024-03-19] MEDS: DESENEX/MITRAZOL/ZEASORB 1 APPLIC TOPICAL ×2 (09:51→20:32)
[2024-03-19] MEDS: NSS (PRESERVATIVE FREE) IV (09:51)
[2024-03-19] MEDS: TIMOPTIC 0.5% OPHTHALMIC SOLUTION 1 DROP BOTH EYES (09:51)
[2024-03-19] MEDS: IMODIUM 2 MG PO (10:22)
--- NOTE | 2024-03-19 11:21 | CM ---
Facility called to request patient come tomorrow. CM updated physician. Plan for transfer to SNF when medically appropriate and bed available. CM will continue to follow for discharge planning needs.
Plan; SNF
[2024-03-19] MEDS: PROTONIX 40 MG PO (13:16)
[2024-03-19 15:15] VITALS: BP 116/49
[2024-03-19] MEDS: APRESOLINE PO (16:40)
[2024-03-19] MEDS: TYLENOL 650 MG PO (18:45)
[2024-03-19] MEDS: XALATAN OPHTHALMIC SOLUTION 1 DROP BOTH EYES (22:55)
[2024-03-19 23:21] VITALS: BP 151/63
[2024-03-20 06:00] VITALS: BMI 26.7
--- NOTE | 2024-03-20 07:12 | W.PN.HOSP.TC ---
Today's Communication/Plan
-
discharge
Assessment / Plan
Assessment / Plan
78 y.o female comes in with leukocytosis and abdominal pain, found to have recurrent peridiverticular abscess along the sigmoid colon.
PLAN:
#Peridiverticular abscess with tubo-ovarian abscess, recurrent sigmoid diverticulitis
- Persistent peridiverticular abscess s/p temporary drainage on last admission and s/p Augmentin and diflucan course (to end 03/10). Recurrent leukocytosis starting about 4 days ago. No fevers chills. No other signs of active infection. Pain and
loose stools but no tenderness to palpation. She is non-toxic but looks generally fatigued.
- Appreciate ID and colorectal surgery input, status post drainage by IR 03/11, draining 10 mL of green purulent fluid - drain in place
- ID recommends treatment with Flagyl, micafungin switched to fluconazole, levofloxacin switched to cipro. 03/11 cultures grew Pseudomonas, Klebsiella, and Saccharomyces, sensitivities appreciated
- No plans for surgery at this time. She is scheduled for April [address] Griffith and Dr. Hanks.
- Diet advanced to low residue tolerating
# Hyponatremia/Hypokalemia
- Repleted and resolved, cap IV fluids 03/13 due to LE edema, home Lasix resumed
# HTN
- enalapril 40
- spironolactone 25
- metoprolol
- BP improved with addition hydralazine 75 mg 3 times daily 03/11
# paroxysmal afib
- cleared by surg to resume apixaban 03/13
- continue metoprolol for rate control
# GERD/Cough
- cont Protonix
# Aspiration
- Family reports aspiration with textured food but not liquids or soft foods and is tolerating oral meds
- Barium swallow negative except for decreased esophageal motility
- Consult SPL appreciated appropriate for regular diet
# Hypomagnesemia
- Repleted and resolved
# Non-anion gap metabolic acidosis resolved
-bicarb supplement completed
# Urinary retention
-She is having BM's - KUB appreciated no excessive stool burden, ruled out overflow
-Borjas inserted 03/13
-Borjas since discontinued, passed trial of void
# GERD
Continue PPI
Chronic HFpEF
- cont home Lasix enalapril metoprolol Aldactone
#Lower ext pedal edema L>R, resolved
painless
Venous duplex neg for DVT
Left Ankle X-ray noted no acute abn's
suspect combination Fluid overload (from recent hold on Lasix and IVF support since discontinued and Lasix resumed) vs Lymphedema vs hypoalbuminemia
compression VEENA wraps b/l lower ext's
symptom since improved/resolved
#Anxiety
#Insomnia
Cont home prn xanax adjusted to accommodate sleeping issues
Xanax 0.25 mg TID prn switched to BIDPRN and scheduled HS w/ holding parameters
PT/OT appreciated SNF rehab
DVT PPX - apixaban
Code status - full code
Medically stable for discharge SNF rehab with outpatient follow up recommendations.
discussed with patient and patient's son Arpit
Total time spent to see the patient on the floor, examine the patient, review data and lab results, discuss treatment plan with patient, nursing staff around 35 minutes.
Physical Exam
General: No acute distress
HEENT: Normocephalic, Atraumatic, EOMI, MMM
Respiratory: Clear to Auscultation bilaterally
Cardiac: Normal S1/S2, Regular Rate and Rhythm
GI: Soft, tender at the left lower quadrant, Nondistended, Normal Bowel Sounds
+Abd drain with serosanguineous drainage
Extremities: No Clubbing, Cyanosis, LE swelling resolved not pitting edema noted
Neuro: Nonfocal/Grossly Intact
Anticipated Discharge: Today
Subjective/Interval History
-
Date of Service: March 20, 2024
seen and examined at bedside in no acute distress. reports overall feeling though poor sleep overnight (has prn xanax but has not asked for it). Lower extremity swelling improved/resolved.
Objective Data
-
Vital Signs:
Vital Signs
Temp Pulse Resp BP Pulse Ox
98.0 F 62 18 151/63 97
03/19/24 23:21 03/19/24 23:21 03/19/24 23:21 03/19/24 23:21 03/20/24 00:49
I&O
03/19/24 03/20/24 03/21/24
06:59 06:59 06:59
Intake Total 945 / 945 1205 / 1205
Output Total
Balance 937 / 937 1199 / 1199
[2024-03-20 07:25] VITALS: BP 156/67
[2024-03-20] MEDS: VASOTEC 40 MG PO (10:01)
[2024-03-20] MEDS: TIMOPTIC 0.5% OPHTHALMIC SOLUTION 1 DROP BOTH EYES (10:01)
[2024-03-20] MEDS: CIPRO 500 MG PO (10:02)
[2024-03-20] MEDS: DESENEX/MITRAZOL/ZEASORB 1 APPLIC TOPICAL (10:02)
[2024-03-20] MEDS: DIFLUCAN 400 MG PO (10:02)
[2024-03-20] MEDS: PROTONIX 40 MG PO (10:02)
[2024-03-20] MEDS: APRESOLINE 75 MG PO (10:03)
[2024-03-20] MEDS: ELIQUIS 5 MG PO (10:03)
[2024-03-20] MEDS: FLAGYL 500 MG PO (10:03)
[2024-03-20] MEDS: PROZAC 20 MG PO (10:04)
[2024-03-20] MEDS: FLOMAX 0.4 MG PO (10:04)
[2024-03-20] MEDS: LOPRESSOR 12.5 MG PO (10:04)
[2024-03-20] MEDS: ALDACTONE 25 MG PO (10:05)
[2024-03-20] MEDS: NSS (PRESERVATIVE FREE) IV (10:05)
--- NOTE | 2024-03-20 11:23 | W.DCSUMMARY ---
Discharge Summary
Discharge Data
Date of Admission: 03/10/24
Date of Discharge: 03/20/24
-
Pending Results: No
Discharge Plan
-
Patient Disposition: [facility]/SNF
Discharge Diagnosis/Procedures: Hilda-diverticular abscess with tubo-ovarian abscess, recurrent sigmoid diverticulitis
Hypertension
Paroxysmal Atrial Fibrillation
Transient Urinary retention since resolved
GERD
Chronic Heart Failure with Preserved Ejection Fraction
Condition: Fair
Diet: Low Residue
Additional Diets: Twice a day Ensure Enlive Chocolate or choice flavor
Activity: With assistance and With Walker
Driving Restrictions: No driving
Bathing Restrictions: None
Other Services: PT and OT
Activity Restrictions/Additional Instructions:
Please follow up with primary care provider and Colorectal surgeon in 1 week of discharge.
Ciprofloxacin, Fluconazole, and Flagyll have been prescribed to continue treatment pelvic abscess through scheduled surgical date Apr 01.
Enalapril for hypertension has been switched to 40 mg daily instead of 20 mg twice a day, for ease of dosing.
Hydralazine 75 mg three times a day has been added for better blood pressure control
Xanax as needed for anxiety has been changed to twice a day as needed in addition to scheduled bedtime dose for sleep. Hold bedtime dose if sedated or already sleeping.
Home omeprazole reduced to 40 mg daily.
Please take medications as prescribed/recommended and follow up with primary care provider and/or other healthcare provider involved in your care for refills and/or further adjustment to your medication regimen as necessary.
Referrals:
Ck Griffith MD [Active] - in one week
Prince Maldonado MD [Family Provider] - in one week
Additional Discharge Medication Instructions: Your appointment with Dr. Griffith can be a telehealth video or phone call appointment to discuss upcoming surgery.
Prescriptions:
New
ciprofloxacin HCl 500 mg Tablet
500 mg PO BID 13 Days Qty: 26 0RF
Rx Instructions:
To continue through surgery date Apr 01 then stop.
hydralazine 50 mg Tablet
75 mg PO TID 30 Days Qty: 135 0RF
fluconazole 200 mg Tablet
400 mg PO DAILY 12 Days Qty: 24 0RF
Rx Instructions:
To continue through surgery date Apr 01 then stop
enalapril maleate [Vasotec] 20 mg tablet
40 mg PO DAILY 30 Days Qty: 60 0RF
metronidazole 500 mg Tablet
500 mg PO Q8 13 Days Qty: 39 0RF
Rx Instructions:
To continue through surgery date Apr 01 then stop
alprazolam 0.25 mg Tablet
0.25 mg PO BIDPRN PRN (Reason: anxiety) Qty: 10 0RF
alprazolam 0.25 mg Tablet
0.25 mg PO HS Qty: 5 0RF
Rx Instructions:
Hold if sedated or already sleeping
omeprazole 40 mg capsule,delayed release(DR/EC)
40 mg PO DAILY 30 Days Qty: 30 0RF
Continued
loperamide 2 mg Tablet
2 mg PO BIDPRN PRN (Reason: diarrhea )
timolol maleate 0.5 % Gel Forming Solution
1 drp BOTH EYES DAILY
cholecalciferol (vitamin D3) [Vitamin D3] 50 mcg (2,000 unit) Tablet
50 mcg PO MOTUWETHFR
Lumigan 0.01 % Drops
1 drp BOTH EYES HS
Eliquis 5 mg Tablet
5 mg PO BID Qty: 60 0RF
Culturelle 10 billion cell Capsule
1 cap PO DAILY
acetaminophen [Tylenol Extra Strength] 500 mg Tablet
1,000 mg PO Q6HPRN PRN (Reason: mild pain)
fluoxetine 20 mg Capsule
20 mg PO DAILY
furosemide 20 mg tablet
20 mg PO MOWEFR
metoprolol tartrate 25 mg Tablet
12.5 mg PO BID
Discontinued
enalapril maleate 20 mg Tablet
20 mg PO BID
omeprazole 40 mg Capsule,Delayed Release(Dr/Ec)
40 mg PO QAC
Rx Instructions:
before meals
alprazolam 0.25 mg Tablet
0.25 mg PO TID PRN (Reason: anxiety)
Discharge Orders:
Discharge Patient (As Directed); Ordered 03/20/24
Ordered By: Vignesh Mejia
Discharge Date and Time
Print Language: CZECH
--- NOTE | 2024-03-20 11:53 | CM ---
Addendum entered by Eryn Green 03/20/24 12:54:
CM spoke with pts son. Explained role and discussed dc plan/options. Pts son agreeable to dc to [facility] for SNF. IMM placed on chart.
Original Note:
CM reviewed chart. Bed confirmed for discharge today to [facility].
RN to call report to [phone]
clinical to be faxed to [phone]
[2024-03-20 15:00] VITALS: BP 152/59
== END 2024-03-20 15:20 | DRG 392 ==
LOC: 2 NORTH 23:47
PROVIDERS: Family Medicine; Physician Assistant; Radiology Vascular & Interventional Radiology; ADMITTING PHYSICIAN Internal Medicine; ATTENDING PHYSICIAN Internal Medicine; EMERGENCY PHYSICIAN Emergency Medicine; FAMILY PHYSICIAN Internal Medicine; OTHER PHYSICIAN Student in an Organized Health Care Education/Training Program; OTHER PHYSICIAN Surgery
PROC: 0W9G30Z Drainage of Peritoneal Cavity with Drainage Device, Percutaneous Approach (ICD-10-PCS; 2024-03-11)
DX: K57.20 Diverticulitis of large intestine with perforation and abscess without bleeding (principal); E87.1 Hypo-osmolality and hyponatremia; I13.0 Hypertensive heart and chronic kidney disease with heart failure and stage 1 through stage 4 chronic kidney disease, or unspecified chronic kidney disease; I50.32 Chronic diastolic (congestive) heart failure; E87.20 Acidosis, unspecified; B37.49 Other urogenital candidiasis; Z16.12 Extended spectrum beta lactamase (ESBL) resistance; D63.1 Anemia in chronic kidney disease; N18.9 Chronic kidney disease, unspecified; B96.5 Pseudomonas (aeruginosa) (mallei) (pseudomallei) as the cause of diseases classified elsewhere; B96.1 Klebsiella pneumoniae [K. pneumoniae] as the cause of diseases classified elsewhere; N70.93 Salpingitis and oophoritis, unspecified; E83.42 Hypomagnesemia; E87.6 Hypokalemia; F41.9 Anxiety disorder, unspecified; I48.0 Paroxysmal atrial fibrillation; K21.9 Gastro-esophageal reflux disease without esophagitis; M51.369 Other intervertebral disc degeneration, lumbar region without mention of lumbar back pain or lower extremity pain; H40.9 Unspecified glaucoma; N28.1 Cyst of kidney, acquired; K58.9 Irritable bowel syndrome, unspecified; R33.9 Retention of urine, unspecified; Z79.01 Long term (current) use of anticoagulants; Z79.899 Other long term (current) drug therapy; Z87.891 Personal history of nicotine dependence
CPT/HCPCS: 49406; 73610; 74018; 74177; 74210; 80048; 80053; 83605; 83735; 83935; 84100; 84300; 84443; 85025; 85027; 85652; 86140; 87070; 87071; 87077; 87106; 87186; 87205; 92526; 92610; 93005; 93970; 96361; 96365; 96367; 97116; 97163; 97167; 97535; 99152; 99285; J1335; Q9967

== ENCOUNTER 2024-03-29 02:07 | Inpatient (IN) | payer MEDICARE, SELFPAY ==
[2024-03-28 21:52] VITALS: BP 137/89
[2024-03-28 21:55] VITALS: BP 137/89
[2024-03-28 22:00] VITALS: BP 138/125
[2024-03-28 22:02] VITALS: BMI 27.3
[2024-03-28 22:13] LABS: % Basophils 0.4 % (0-2); % Lymphocytes 6.1 % (20.5-51.1); % Monocytes 10.2 % (1.7-9.3); % Neutrophils 82.3 % (42.2-75.2); Absolute Basophils 0.1 10^3/uL (0-0.2); Absolute Immature Granulocytes 0.2 10^3/uL (0-0.05); Absolute Lymphocytes 1.3 10^3/uL (1.2-3.4); Absolute Monocytes 2.2 10^3/uL (0.1-0.6); Absolute Neutrophils 17.9 10^3/uL (1.4-6.5); Hematocrit 37.3 % (37.0-47.0); Hemoglobin 12.4 g/dL (12.0-16.0); Mean Corp Hgb Conc. 33.2 g/dL (33.0-37.0); Mean Corpuscular Hgb 29.5 pg (27.0-31.0); Mean Corpuscular Volume 88.8 fL (81.0-99.0); Mean Platelet Volume 11.3 fL (7.4-10.4); Nucleated Red Blood Cells % 0 %; Platelet Count 509 10^3/uL (130-400); Red Cell Dist. Width 15.2 % (11.5-14.5); White Blood Cell Count 21.8 10^3/uL (4.8-10.8)
[2024-03-28 22:25] LABS: ALT (SGPT) 35 U/L (0-35); AST (SGOT) 132 U/L (14-36); Albumin 3.5 g/dl (3.5-5.0); Alkaline Phosphatase 51 U/L (38-126); Blood Urea Nitrogen 11 mg/dl (7-17); Calcium 9.4 mg/dl (8.4-10.2); Carbon Dioxide 20 mmol/L (22-30); Chloride 94 mmol/L (98-107); Estimated Creatinine Clearance 47 ml/min; Glucose 149 mg/dl (70-99); Potassium 4.4 mmol/L (3.5-5.1); Sodium 131 mmol/L (135-145); Total Bilirubin 1.7 mg/dl (0.2-1.3); Total Protein 5.9 g/dl (6.3-8.2); eGFR > 60.00
[2024-03-28 22:26] LABS: INR 2.17; PT 24.1 Sec (11.4-14.6)
[2024-03-28 22:36] LABS: NT-proBNP > 27000 pg/ml; Troponin I 0.863 ng/ml
[2024-03-28 23:00] VITALS: BP 128/104
[2024-03-28] MEDS: CARDIZEM 20 MG IV (23:05)
[2024-03-28] MEDS: CARDIZEM 125 IV (23:05)
[2024-03-28] MEDS: LASIX 60 MG IV (23:06)
--- NOTE | 2024-03-28 23:09 | ED.GENMED ---
History of Present Illness
General
Chief Complaint: Breathing Problem
Source: patient and family
Exam Limitations: none
Time Seen by Provider: 03/28/24 22:13
Nursing documentation reviewed up to this point in time: agreed with
History of Present Illness
History of Present Illness:
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
antibiotics has a GRAHAM drain in, apparently has been eating too much the past day or so has had heart failure today the patient was wheezing pulse ox 89% given a liter of fluid and then transferred to the ER family also concerned that she is confused
with some slurred speech
Past History
Past History
ED Past Medical History: Arrthythmia (Atrial fib), CHF, GERD, HTN and Other (pelvic abscess status post drainage November 2023, abd wall abscess, diverticulosis, IBS, Glaucoma, )
ED Past Surgical History: Cholecystectomy and Gynecological (Fallopian tube abscesss)
Social History
Tobacco: Former smoker
Alcohol: Occasional
Drug: None
Personal:
Living: with family
Review of Systems
Review of Systems
All Other Systems: Not applicable
Constitutional: Reports fatigue; Denies fever
Respiratory: Reports cough and trouble breathing
Cardiac: Reports palpitations; Denies chest pain
ABD/GI: Reports nausea; Denies abdominal pain
: Reports no symptoms
Neurological: Reports weakness
Hematologic/Lymphatic: Reports other (Edema)
Phy Exam
Physical Exam
Physical Exam:
Physical Exam
General: Moderately ill-appearing hypertensive tachycardic afebrile
Neck: Neck veins are prominent
Heart: Tachycardia
Lungs: Crackles
Abdomen: Not
Neuro: Globally weak oriented x 3 opens eyes to voice
Skin: no rash
Psychiatric: cooperative
Extremities: Edema is present
Scores
Heart Failure Risk
Heart Failure Risk Score: Yes
History of Stroke or TIA: No
History of intubation for respiratory distress: No
Heart rate on ED arrival >/= 110: Yes
SaO2 <90% on arrival on room air: Yes
HR >/=110 during 3min walk test (or too ill to perform test): Yes
ECG has acute ischemic changes: No
Urea >/=12mmol/L (BUN 33.6mg/dL): No
Serum CO2>/=35mmol/L: No
Troponin I or T elevated to VA Level (0.4mg/dL): Yes
NT-proBNP >/=5,000ng/L (5,000pg/ml): Yes
HF Risk Score: 6
Admission Status: VERY HIGH RISK 55.3% Consider admission to hospital
Course
Orders/Labs/Results
Orders:
Orders
03/28/24 21:50
Electrocardiogram (*1) Urgent
Reason for Study: Other
Other Reason for Exam: Respiratory Distress
EKG- Treatment ONCE
CR Chest - 2 Views Urgent
Comment:
Reason For Exam: respiratory distress
03/28/24 21:54
Complete Blood Count/With Diff Urgent
Comprehensive Metabolic Panel Urgent
NT-proBNP Urgent
PT/INR [Prothrombin Time] Urgent
Troponin I Urgent
03/28/24 22:43
CT Head W/o Iv Contrast Urgent
Comment:
Reason For Exam: speach abnoraml
03/28/24 22:44
Diltiazem 125 mg/125 ml Nss [Cardizem] 125 mg in 125 ml IV NOW
Initial dose in mg/hr, then titrate:: 5
Titrate to keep:: Heart rate 80-100 bpm
Titrate by mg/hr:: 5 mg/hr
Frequency of titrations (minutes):: 15
Maximum dose in mg/hr:: 15
Diltiazem HCl [Cardizem] 20 mg IV NOW STA
Furosemide [Lasix] 60 mg IV NOW STA
Abnormal Lab Results
03/28/24
21:54
WBC 21.8 H 10^3/uL
(4.8-10.8)
RDW 15.2 H %
(11.5-14.5)
Plt Count 509 H 10^3/uL
(130-400)
MPV 11.3 H fL
(7.4-10.4)
Abs Immat Gran (auto) 0.2 H 10^3/uL
(0-0.05)
Absolute Neuts (auto) 17.9 H 10^3/uL
(1.4-6.5)
Absolute Monos (auto) 2.2 H 10^3/uL
(0.1-0.6)
Immature Gran % 1.0 H %
(0-0.5)
Neutrophils % 82.3 H %
(42.2-75.2)
Lymphocytes % 6.1 L %
(20.5-51.1)
Monocytes % 10.2 H %
(1.7-9.3)
PT 24.1 H Sec
(11.4-14.6)
Sodium 131 L mmol/L
(135-145)
Chloride 94 L mmol/L
(98-107)
Carbon Dioxide 20 L mmol/L
(22-30)
Glucose 149 H mg/dl
(70-99)
Total Bilirubin 1.7 H mg/dl
(0.2-1.3)
AST 132 H U/L
(14-36)
Troponin I 0.863 H* ng/ml
Total Protein 5.9 L g/dl
(6.3-8.2)
03/28/24 21:54
03/28/24 21:54
Vital Signs
Initial and Last Documented VS:
Initial Vital Signs
Temp Pulse Resp BP Pulse Ox
96.4 F L 125 26 137/89 96
03/28/24 21:55 03/28/24 21:55 03/28/24 21:55 03/28/24 21:55 03/28/24 21:55
Last Documented Vital Signs
Temp Pulse Resp BP Pulse Ox
96.4 F L 125 26 137/89 96
03/28/24 21:55 03/28/24 21:55 03/28/24 21:55 03/28/24 21:55 03/28/24 21:55
MDM/Problems Addressed
Differential Diagnosis Includes:
A-fib heart failure pneumonia sepsis aspiration
MDM/Problems Addressed:
Hypoxia tachycardia
Chronic conditions affecting care: Arrhythmia and Previous abdomnial surgery
Acute Exacerbation and/or Progression of Chronic Illness: Arrhythmia and Previous abdomnial surgery
*Radiology
Radiology exam reviewed: preliminary read by ED provider
*Pulse Oximetry
Patient hypoxic: yes
Comment: 89
*EKG
Interpreted by ED Provider?: Yes
Interpretation: abnormal
Comparison EKG: changes noted
Heart Rate: 130
Rate: tachycardiac
Rhythm: a-fib
Ischemia: non-specific ST changes
*Office Communication Professor Interpretation
Rate: tachycardiac
Interpretation: abnormal
Heart Rate: 128
Rhythm: a-fib
*Critical Care Note
Total Time (30-74mins, 75-104mins- exclusive of procedures): 30
Data Reviewed
Review of Other/Old Records Reveals: Labs
Source: patient and family
Prescriptions/Medications Considered But Not Given:
Beta-matt
Further Testing Considered But Not Given:
CT of the abdomen
Update Note
Update Note:
Update chest x-ray noted looks like heart failure full report pending CT of the head noted
Diuretics have been ordered Cardizem has been ordered
ED Attending Note
-
Portions of this chart may have been created with voice recognition software.� Occasional wrong word or��sound alike� substitutions may have occurred due to the inherent limitations of voice recognition software.
Discharge Plan
Departure
Patient Disposition: Admit
Date of Disposition: 03/28/24
Time of Disposition: 23:37
Admit to: IVU
Presentation/result/management discussed w/ accepting MD/DO: Hospitalist
Patient with high blood pressure during this ER visit?: Yes
Condition: Fair
Covid-19: Not Applicable
Discharge Problem:
Abscess, Paroxysmal A-fib, Pelvic abscess, Pericolonic abscess, Diverticulitis of large intestine with perforation and abscess without bleeding, CHF exacerbation, Atrial fibrillation with RVR
Prescriptions:
No Action
loperamide 2 mg Tablet
4 mg PO Q6HPRN PRN (Reason: diarrhea )
timolol maleate 0.5 % Gel Forming Solution
1 drp BOTH EYES DAILY
cholecalciferol (vitamin D3) [Vitamin D3] 50 mcg (2,000 unit) Tablet
50 mcg PO MOTUWETHFR
Eliquis 5 mg Tablet
5 mg PO BID Qty: 60 0RF
Culturelle 10 billion cell Capsule
1 cap PO DAILY
acetaminophen [Tylenol Extra Strength] 500 mg Tablet
1,000 mg PO Q4HPRN MDD 3000 mg PRN (Reason: mild pain/temp >100)
fluoxetine 20 mg Capsule
20 mg PO DAILY
furosemide 20 mg tablet
20 mg PO MOWEFR
metoprolol tartrate 25 mg Tablet
12.5 mg PO BID
ciprofloxacin HCl 500 mg Tablet
500 mg PO BID 13 Days Qty: 26 0RF
Rx Instructions:
To continue through surgery date Apr 01 then stop.
fluconazole 200 mg Tablet
400 mg PO DAILY 12 Days Qty: 24 0RF
Rx Instructions:
To continue through surgery date Apr 01 then stop
enalapril maleate [Vasotec] 20 mg tablet
40 mg PO DAILY 30 Days Qty: 60 0RF
alprazolam 0.25 mg Tablet
0.25 mg PO BIDPRN PRN (Reason: anxiety) Qty: 10 0RF
omeprazole 40 mg capsule,delayed release(DR/EC)
40 mg PO DAILY 30 Days Qty: 30 0RF
latanoprost 0.005 % Drops
1 drp BOTH EYES HS
ondansetron HCl 4 mg Tablet
4 mg PO Q8HPRN PRN (Reason: nausea)
loperamide 2 mg Tablet
2 mg PO [id number] PRN (Reason: diarrhea)
hydralazine 25 mg Tablet
25 mg PO TID
Rx Instructions:
take with 50mg for total of 75mg
magnesium hydroxide [Milk of Magnesia] 400 mg/5 mL Suspension
30 ml PO [id number] PRN (Reason: no bm 3 days)
bisacodyl [Dulcolax (bisacodyl)] 10 mg Suppository
10 mg MO DAILYPRN PRN (Reason: mom ineffective after 24 hours)
Fleet Enema 19-7 gram/118 mL Enema
118 ml MO DAILYPRN PRN (Reason: dulcolax ineffective after 24 hrs)
potassium chloride 20 mEq Tablet Extended Release
20 meq PO DAILY
metronidazole 500 mg tablet
500 mg PO Q8H
Rx Instructions:
To continue through surgery date Apr 01 then stop
alprazolam [Xanax] 0.25 mg tablet
0.25 mg PO HS
hydralazine 50 mg tablet
50 mg PO TID
Rx Instructions:
take with 25mg for total of 75mg
Referrals:
Prince Maldonado MD [Family Provider] -
Interventions
Interventions:
*Risk Screen - Suicide Last Done: 03/28/24 21:55
*General Assessment Last Done: 03/28/24 21:55
*Neglect/Abuse Screening Last Done: 03/28/24 21:55
ED- Cardiac Assessment Last Done: 03/28/24 22:01
Discharge Date and Time
Print Language: PASHTO
[2024-03-28 23:44] VITALS: BP 95/75
[2024-03-29] VITALS (28 sets, daily range): BP systolic 96–132; BP diastolic 52–96; BMI 26.5
--- NOTE | 2024-03-29 01:16 | HPS.HSE ---
Family Physician
-
Family Physician: Prince Maldonado
Chief Complaint
-
Shortness of breath
History of Present Illness
This is an 78-year-old female with past medical history significant for hypertension, atrial fibrillation, diverticular abscess [facility] with shortness of breath and rapid heart rate.
Patient was recently discharged on the where she was admitted for peridiverticular abscess for which she had a indwelling drain at this time. She was discharged on ciprofloxacin, Diflucan and Flagyl. She will get has completed course of the
antibiotics at this time. Patient was currently doing well up until today. About 2 days ago she has some swelling in her left leg. She had slight increasing the Lasix dose with improvement in that. Today the patient was noted to be having a lot
of dry heaves. The son reported that she was tachycardic to the 150s at the [facility]. She was unable to tolerate any p.o. today. There was no vomiting. She had no diarrhea. She did not complain of any abdominal pain fevers or chills. She
had ongoing weakness and fatigue without much change. Reported that due to her inability to take p.o. and a sense of dehydration and the patient was connected to IV fluids and giving 1 L of normal saline very rapidly. She immediately started to
have wheezing and nonproductive cough. They checked the pulse ox and it was down to 88% on room air. EMS was called and patient was transferred to the emergency department. She continued to complain of difficulty breathing en route to the ED.
She denied having chest pain. She was unaware of the palpitations.
In the ED she had a temp of 96.4 blood pressure was 130/90 with a pulse of 125. She was satting 95% on 4 L. ECG shows atrial fibrillation at 132 and troponin was elevated at 0.8. CT of the head was negative. Chest x-ray to [facility] shows increased
pleural effusion more so on the left but cannot rule out an acute infiltrate. There is appears to also be possible pulmonary edema. She had a leukocytosis of 21,000 with unchanged hemoglobin of 12 and a platelet count of 500. Chemistries were
unremarkable.
Medical History
Past Medical History
Past Medical History: Reports Arrhythmia (Atrial fibrillation), CHF and HTN
Additional Past Medical History:
Peridiverticular abscess/tubo-ovarian abscess
Past Surgical History: Reports Gynocological
Social History
Tobacco: Former Smoker
Alcohol: None
Drug: None
Personal: Single
Living: Senior [facility]
Employment: Retired
Family History
Family History: Not pertinent
Allergies / Home Medications
Allergies reflects when Allergies were last updated in [facility].
Home Medications with original date entered in [facility]
Allergy/Medication List:
Allergies
Allergy/AdvReac Type Severity Reaction Status Date / Time
amlodipine AdvReac stomach Verified 03/28/24 21:51
cramps
lisinopril AdvReac abdominal Verified 03/28/24 21:51
cramping
unknown drug Allergy Unknown Uncoded 03/28/24 21:51
Home Medications
cholecalciferol (vitamin D3) 50 mcg (2,000 unit) tablet (Vitamin D3) 50 mcg PO MOTUWETHFR supplement 12/08/23
loperamide 2 mg tablet 4 mg PO Q6HPRN PRN diarrhea 12/08/23
timolol maleate 0.5 % eye gel forming solution 1 drp BOTH EYES DAILY eye condition 12/08/23
apixaban 5 mg tablet (Eliquis) 5 mg PO BID #60 tabs 12/14/23
Lactobacillus rhamnosus GG 10 billion cell capsule (Culturelle) 1 cap PO DAILY Supplement 12/17/23
acetaminophen 500 mg tablet (Tylenol Extra Strength) 1,000 mg PO Q4HPRN PRN mild pain/temp >100 02/23/24
fluoxetine 20 mg capsule 20 mg PO DAILY Mental Health/Anxiety 02/23/24
furosemide 20 mg tablet 20 mg PO MOWEFR Fluid Retention/Swelling 02/23/24
metoprolol tartrate 25 mg tablet 12.5 mg PO BID Blood Pressure 03/10/24
alprazolam 0.25 mg tablet 0.25 mg PO BIDPRN PRN anxiety #10 tabs 03/20/24
ciprofloxacin HCl 500 mg tablet 500 mg PO BID 13 days #26 tabs 03/20/24
enalapril maleate 20 mg tablet (Vasotec) 40 mg (2 x 20 mg) PO DAILY 30 days #60 tabs 03/20/24
fluconazole 200 mg tablet 400 mg (2 x 200 mg) PO DAILY 12 days #24 tabs 03/20/24
omeprazole 40 mg capsule,delayed release 40 mg PO DAILY 30 days #30 caps 03/20/24
alprazolam 0.25 mg tablet (Xanax) 0.25 mg PO HS Sleep 03/28/24
bisacodyl 10 mg rectal suppository (Dulcolax (bisacodyl)) 10 mg HI DAILYPRN PRN mom ineffective after 24 hours 03/28/24
hydralazine 25 mg tablet 25 mg PO TID 03/28/24
hydralazine 50 mg tablet 50 mg PO TID 03/28/24
latanoprost 0.005 % eye drops 1 drp BOTH EYES HS 03/28/24
loperamide 2 mg tablet 2 mg PO [id number] PRN diarrhea 03/28/24
magnesium hydroxide 400 mg/5 mL oral suspension (Milk of Magnesia) 30 ml PO [id number] PRN no bm 3 days 03/28/24
metronidazole 500 mg tablet 500 mg PO Q8H 03/28/24
ondansetron HCl 4 mg tablet 4 mg PO Q8HPRN PRN nausea 03/28/24
potassium chloride 20 mEq tablet,extended release 20 meq PO DAILY 03/28/24
sodium phosphates 19 gram-7 gram/118 mL enema (Fleet Enema) 118 ml HI DAILYPRN PRN dulcolax ineffective after 24 hrs 03/28/24
Review of Systems
-
Constitutional: Reports No Symptoms
EENT: Reports No Symptoms
Respiratory: Reports Trouble Breathing
Cardiac: Reports No Symptoms
Abdomen/GI: Reports No Symptoms
: Reports No Symptoms
Musculoskeletal: Reports No Symptoms
Skin: Reports No Symptoms
Neurological: Reports No Symptoms
Endocrine: Reports No Symptoms
Hematologic/Lymphatic: Reports No Symptoms
Psych: Reports No Symptoms
Physical Exam
Vital Signs
Vital Signs
Temp Pulse Resp BP Pulse Ox
96.4 F L 125 26 137/89 96
03/28/24 21:55 03/28/24 21:55 03/28/24 21:55 03/28/24 21:55 03/28/24 21:55
Physical Exam
General: No Apparent Distress, Comfortable and Appears Chronically Ill
HEENT: NormoCephalic, Anicteric, Atraumatic, PERRLA and Nose Appears Normal
Respiratory: Crackles
Cardiac: S1/S2, Irregular Rhythm and Tachycardia
Breast: Deferred by me
GI: Soft, Non Tender, Non Distended, Normal Bowel Sounds and Other (Left lower quadrant drain, scant amount of serosanguineous fluid.)
Rectal: Deferred by Provider
Genito-urinary: Deferred by me
Musculoskeletal: No Clubbing, No Cyanosis and No Edema
Skin: Warm
Neuro: AO x 3
Hematologic/Lymphatic: No Lymphadenopathy
Psych: Calm
Laboratory Results
-
03/28/24 21:54
03/28/24 21:54
Laboratory Results
PT 24.1 Sec (11.4-14.6) H 03/28/24 21:54
INR 2.17 03/28/24 21:54
Total Bilirubin 1.7 mg/dl (0.2-1.3) H 03/28/24 21:54
AST 132 U/L (14-36) H 03/28/24 21:54
ALT 35 U/L (0-35) 03/28/24 21:54
Alkaline Phosphatase 51 U/L (38-126) 03/28/24 21:54
Troponin I 0.863 ng/ml H* 03/28/24 21:54
Data Reviewed
-
Diagnostic Radiology: Image Personally Visualized and interpreted
CT Scan: Report Reviewed by me
Medical Tests (Nuc Med, Echo, EKG etc): Image Personally Visualized and interpreted
Lab Data: Labs Reviewed by me
Old Records: Reviewed
Impression/Plan
-
IMPRESSION:
Patient arriving with A-fib RVR, leukocytosis, hypoxia and shortness of breath. Troponin elevated at 0.[address] or T wave changes on ECG. She is afebrile but has white count of 21,000. X-ray shows increased pleural effusion possible
pleural edema but cannot rule out acute infectious infiltrate. Abdomen was benign on examination with drain in place with serosanguineous fluid. Guarded.
PLAN:
1. SOB - Multifactorial, history suggests possibly afib RVR with dry heaving followed by flash pulmonary edema after rapidly getting 1 L NS. However cannot rule out acute pneumona. Total body does not appear much overloaded. Rate controlled and
satting 95 on 4 L now. No increased wob or wheezing.
- admit to imu
- lasix 60 iv given in Ed, continue 40 iv tomorrow then reassess
- daily weights, npo for now except clears
- check procalcitonin, mrsa
- CT abd/pelvis
2. Myocardial injury - Unclear if dry heaving/nasuea was angina equivalent suggestive of obstruction vs demand ischemia from uncontrolled rate and hypoxia. En route to ED had episode of diaphoresis. No ischemia on ECG. 1st trop 0.8
- repeat trop, if rising, will start heparin, otherwise continue eliquis
- continue statin
- echo
- asa 324 x 1
- trend enzymes
- cardiology consult
3. AFIB RVR
- rate control with diltiazem iv
- continue metoprolol
- continue ac
4. Leukocytosis - wbc increased again. Possibly secondary to pulmonary infection, acute stress versus ongoing rosalia-diverticular abscess. Usually presents with left lower quadrant pain when the abscess reaccumulates and causes symptoms which is not
the case now.
- continue the fluconazole
- meropenem iv for now for pulmonary/infection given recent abx use and pseudomonas
- hold off on repeat ct a/p to eval abscess and drain placacement. May need drain check so continue to monitor
- procal as above
- id consult
5. GERD
- ppi iv for now
Code Status - full code
[2024-03-29] MEDS: LOW STRENGTH ASPIRIN 324 MG PO (03:17)
[2024-03-29 03:35] LABS: Troponin I 0.722 ng/ml
[2024-03-29 03:39] LABS: Procalcitonin 0.28 ng/ml (0.0-0.25)
--- NOTE | 2024-03-29 05:00 | PTCARENOTE ---
Received patient AAOx3, following commands, denying pain. Generalized weakness, [place] b/l, does not have hearing aids with her. Heart rate goal 80s-100, titrating cardizem per order. BP stable, 110s/60s, normothermic, +2 b/l lower extremity edema.
Palpable radial and pedal pulses b/l. Arrived on 4 liters nasal cannula, now saturating 92% on room air. Lung sounds diminished throughout. Abdomen soft, round, obese, hypoactive bowel sounds. Purewick in place draining yellow urine. Skin intact,
bruise on right buttock POA. PIVs patent, WNL. Labs sent, CHG bath done, call parrish within reach.
[2024-03-29] MEDS: FLAGYL 500 MG PO (05:10)
[2024-03-29] MEDS: MERREM 1000 MG IV (05:10)
[2024-03-29 05:31] LABS: Troponin I 0.609 ng/ml
[2024-03-29 06:09] LABS: Blood Urea Nitrogen 13 mg/dl (7-17); Calcium 9.2 mg/dl (8.4-10.2); Carbon Dioxide 23 mmol/L (22-30); Chloride 95 mmol/L (98-107); Estimated Creatinine Clearance 41 ml/min; Glucose 122 mg/dl (70-99); Potassium 3.8 mmol/L (3.5-5.1); Sodium 132 mmol/L (135-145); eGFR > 60.00
[2024-03-29] MEDS: DIFLUCAN 400 MG PO (08:34)
[2024-03-29] MEDS: PROZAC 20 MG PO (08:34)
[2024-03-29] MEDS: ELIQUIS 5 MG PO ×2 (08:34→19:24)
[2024-03-29] MEDS: LASIX 40 MG IV (08:34)
[2024-03-29] MEDS: TIMOPTIC 0.5% OPHTHALMIC SOLUTION 1 DROP BOTH EYES (08:37)
[2024-03-29] MEDS: LOPRESSOR PO (08:50)
--- NOTE | 2024-03-29 09:05 | PTCARENOTE ---
Assumed care of pt at 0715 following shift report. Pt asleep at time assumed care, easily arousable to name for assessment and care. Denies c/o pain or SOB. POx 90% on RA- O2 at 1l/min via NC applied w/ POx improved to 95%. Cardizem gtt infusing at
10mg/hr to maintain HR 80-100. Physical assessment completed as documented. Pure wick in place w/ little output although pt reports 'I feel like I've gone (urinated)'. Bladder scan completed and pt straigh cathed for 625ml urine. Comfort
care/hygiene provided. Call parrish w/in pt reach and safe environment maintained. Pt's daughter arrived to room
--- NOTE | 2024-03-29 09:30 | CON.ID ---
Consultation
-
Date/Time Consultation Requested: 03/29/24 3:33
Date/Time Consultation Performed: 03/29/24 9:31
Requesting Provider: Dr Jimenes
Performing Provider: Dr Enriquez
Reason for Consultation: leukocytosis, chronic peridiverticular abscess s/p drain, sob
Chief Complaint / Past History
Chief Complaint
Shortness of breath
History of Present Illness
Ms Huggins is an 78 year old female with known recurrent sigmoid diverticulitis and pelvic abscess - suspected diverticular with secondarily involved TOA with drain in place. Last cultures with Pseudomonas aeruginosa, Klebsiella-ESBL and
Saccharomyces cerivisiae. She was taking probiotics at home. She was taking ciprofloxacin, metronidazole and fluconazole with plans to continue these therapies through her planned surgery on 04/01. GRAHAM output was dropping off but maintained in
place. Then last night she developed swelling in the leg treated with lasix, then dry heaves and tachycardia to the 150s. Later in the day with anorexia but no vomiting or diarrhea. No fevers, chills or abdominal pain. Does report ongoing
weakenss and fatigue. She was given a bolus of 1L and developed wheezing and nonproductive cough. Pulse ox 88% on room air and EMS was called.
In the ER she was afebrile with a single T of 96.4, bp stable, initially tachycardic in the 140s HR now in the 80s, on arrival wbc 21.8, todays labs pending. Hgb 12.4, plt 509, L shift is noted, eos were not present, cr 0.9, procal 0.28, no UA
done, no covid ag checked, CT head w/o contrast: no acute abnormality, CXR: mild chf, blood cultures have not been done, she is currently on meropenem, metronidazole and fluconazole, EKG with Qtc 449 and afib with rvr and ID is consulted for
assistance with management. Retaining urine but no urgency, frequency, suprapubic tenderness or dysuria.
Past History
Additional Past Medical History:
atrial fibrillation, CHF and HTN
Additional Past Surgical History:
Peridiverticular abscess drainage-November 2023, endometrial biopsy-December 2023
Allergy History:
amlodipine Adverse Reaction (Verified 03/28/24 21:51)
stomach cramps
lisinopril Adverse Reaction (Verified 03/28/24 21:51)
abdominal cramping
unknown drug Allergy (Uncoded 03/28/24 21:51)
Unknown
Medications Reviewed: Yes
Social History
Tobacco: Non-Smoker
Alcohol: Occasional
Drug: None
Family History
Family History: Not Pertinent
Review of Systems
Review of Systems
General: Negative Fever or Chills
All systems: All other systems were reviewed and were negative
Vital Signs
Temp Pulse Resp BP Pulse Ox
98.1 F 85 17 105/72 92
03/29/24 07:51 03/29/24 08:50 03/29/24 05:00 03/29/24 08:50 03/29/24 06:01
Physical Exam
Physical Exam
Constitutional: No Acute Distress and Chronically Ill
Cardiovascular: Regular Rate and S1/S2; Negative Murmur or Rub
Pulmonary: Clear and Symmetric; Negative Wheezes, Rales or Rhonchi
Gastrointestinal: Soft, Non Tender, Non Distended and Normal Bowel Sounds
Skin: Warm and Dry; Negative Rash or Jaundice
Lab / Diagnostic Study Results
03/28/24 21:54
03/29/24 04:59
Abs Immat Gran (auto) 0.2 10^3/uL (0-0.05) H 03/28/24 21:54
Absolute Neuts (auto) 17.9 10^3/uL (1.4-6.5) H 03/28/24 21:54
Absolute Lymphs (auto) 1.3 10^3/uL (1.2-3.4) 03/28/24 21:54
Absolute Monos (auto) 2.2 10^3/uL (0.1-0.6) H 03/28/24 21:54
Absolute Basos (auto) 0.1 10^3/uL (0-0.2) 03/28/24 21:54
Immature Gran % 1.0 % (0-0.5) H 03/28/24 21:54
Neutrophils % 82.3 % (42.2-75.2) H 03/28/24 21:54
Lymphocytes % 6.1 % (20.5-51.1) L 03/28/24 21:54
Monocytes % 10.2 % (1.7-9.3) H 03/28/24 21:54
Eosinophils % 0.0 % (0-6) 03/28/24 21:54
Basophils % 0.4 % (0-2) 03/28/24 21:54
PT 24.1 Sec (11.4-14.6) H 03/28/24 21:54
INR 2.17 03/28/24 21:54
Procalcitonin 0.28 ng/ml (0.0-0.25) H 03/29/24 03:00
Microbiology Results
Micro:
03/29/24 04:25 MRSA Screen - Pending
Nose
Wound/abscess/other Cult Final 03/15/24-1246
Few Pseudomonas aeruginosa
Many Klebsiella oxytoca - ESBL*
Few Saccharomyces cerevisiae
Isolation Precautions Required
Resistance due to extended spectrum beta lactamase.
Decreased activity may occur with penicillins,
penicillin/inhibitor combinations, cephalosporins, and
monobactams[place] [id number] on 03/15/24 at 0902 by [place] [id number]
Organism 1 Pseudomonas aeruginosa
Organism 2 Klebsiella oxytoca - ESBL
P.AERU Koxy-ESBL
M.I.C. RX M.I.C. RX
--------- --- --------- ---
Amoxicillin/Potas. Clavulanate >16/8 R
Ampicillin >16 R
Ampicillin/Sulbactam >16/8 R
Aztreonam 8 S 16 R
Cefazolin >16 R
Cefepime 4 S 4 SDD
Ceftazidime 4 S <=1 S
Ceftriaxone >2 R
Ertapenem <=0.5 S
Ciprofloxacin <=0.25 S <=0.25 S
Gentamicin <=2 S
Meropenem <=1 S <=1 S
Piperacillin/Tazobactam <=8 S >64 R
Tetracycline <=4 S
Tobramycin <=2 S <=2 S
Trimethoprim/Sulfamethoxazole <=2/38 S
Assessment / Plan
Known Intraabdominal Abscess
- if fever over 100.5 orally over 101.0 core then get blood cultures x2
- would not culture the drain itself as it will be impossible to tell colonizers/contaminants from actual intraabdominal pathogens
- follow drain output - none overnight per RN
- 03/11 culture: few Pseudomonas, many ESBL K oxytoca, few S cerevisiae
- start micafungin 100 mg IV q24 hrs, stop fluconazole
- agree with meropenem - dose adjusted
- agree with stopping metronidazole
- further imaging studies pending clinical response
- she is currently planned for the OR electively on 04/15 (recently moved back per family)
Afib with RVR
Flash Pulmonay edema
- management per IM service
- leukocytosis may be reactive
--- NOTE | 2024-03-29 09:34 | W.PN.HOSP.TC ---
Today's Communication/Plan
-
see note
Assessment / Plan
Assessment / Plan
1. Paroxysmal atrial fibrillation with rapid ventricular rate
-Patient have been on regimen of beta-matt/Eliquis at home
-Patient came in for RVR -was asymptomatic
-Got started on diltiazem drip at 10 mg/h currently, Cardio planning to transition to oral meds
-Continue Eliquis for now
2. Peridiverticular/tubo-ovarian abscess
History of recurrent sigmoid diverticulitis
Recurrence leukocytosis
-Patient is planned to undergo surgery for persistent tubo-ovarian/peridiverticular abscess by Dr. Griffith and Demario
-GRAHAM drain showing Pseudomonas aeruginosa/ESBL Klebsiella/Saccharomyces service
-Patient was discharged on regimen of ciprofloxacin 500 twice daily/fluconazole 400 daily/Flagyl 500 Q8 on 03/20
-Patient planned to undergo surgery on 04/15
-In light of recurrence of leukocytosis, ID consulted for further help. at admission regimen changed to Merrem/fluconazole
3. Essential hypertension
-Patient blood pressure is soft, hold enalapril/Aldactone/hydralazine for now
-Will try to maximize rate control and then add another blood pressure medication and
4. Recurrent urinary retention
-Patient had problem with urinary retention last admission
-Patient bladder scan today showing volume of 600 mL plus, straight cath to be done if patient unable to void
5. Acute on chronic diastolic congestive heart failure
Acute hypoxic respiratory insufficiency
-Chest x-ray admission showing questionable pulmonary congestion
-proBNP greater than 27,000 at admission
-Patient have minimal hypoxia as well
-Maintain on IV Lasix for now, follow weight and creatinine
6. Elevated troponin
-From nonischemic myocardial injury likely
-Continue monitor
Eliquis
Full code
Total time spent : 52 mins
I personally saw and examined the patient.
I have reviewed all diagnostic interpretations and treatment plans as written.
Time includes patient management by me, time spent at the patients bedside, time to review lab and imaging results, discussing patient care, documentation in the medical record, and time spent with the family or caregiver and discussing care plan
with RN/Consultants.
Anticipated Discharge: > 48 hours
Subjective/Interval History
-
Date of Service: March 29, 2024
Denies of any abdominal pain/nausea
Reported issues with diarrhea at halfway with medication use
Afebrile in the hospital
No chest discomfort/palpitations/dizziness
Currently on diltiazem drip
Objective Data
-
Labs:
Laboratory Results
03/28/24 03/29/24 03/29/24
21:54 03:00 04:59
WBC 21.8 H
Hgb 12.4
Hct 37.3
Plt Count 509 H
PT 24.1 H
INR 2.17
Sodium 131 L 132 L Cancelled
Potassium 4.4 3.8 Cancelled
Chloride 94 L 95 L Cancelled
Carbon Dioxide 20 L 23 Cancelled
BUN 11 13 Cancelled
Creatinine 0.9 0.9 Cancelled
Glucose 149 H 122 H Cancelled
Calcium 9.4 9.2 Cancelled
Total Bilirubin 1.7 H
AST 132 H
ALT 35
Alkaline Phosphatase 51
Vital Signs:
Vital Signs
Temp Pulse Resp BP Pulse Ox
98.1 F 85 17 105/72 92
03/29/24 07:51 03/29/24 08:50 03/29/24 05:00 03/29/24 08:50 03/29/24 06:01
I&O
03/28/24 03/29/24 03/30/24
06:59 06:59 06:59
Intake Total 25 / 35
Output Total 250 / 250
Balance -225 / -215
Review of Systems
-
Respiratory: Reports No Symptoms
Cardiac: Reports No Symptoms
Abdomen/GI: Reports No Symptoms
Physical Exam
-
General: Comfortable and Cachectic
HEENT: Negative Oxygen
Respiratory: Clear to Auscultation
Cardiac: S1/S2, Irregular Rhythm and Tachycardic; Negative Murmur or Rub
GI: Soft, Nontender and Nondistended
Musculoskeletal: No Edema
Neuro: Awake, Alert, Oriented, No Motor Deficits and Nonfocal/Grossly Intact
Psych: Calm
--- NOTE | 2024-03-29 09:52 | CON.CAR ---
Addendum entered and electronically signed by Kuldip Winkler MD 03/29/24 10:24:
78 yo female with PMH of paroxysmal A fib on eliquis, pelvic abscess with drain (plan for upcoming surgery next month) is admitted with SOB. She is back in A fib with RVR. WBC is also elevated at 21.8. She currently does not feel any palps. Exam
with irregular rhythm, no murmurs, no edema. Tele: Afib 80s.
She is back on IV Abx for her abscess.
We will rate control the A fib. Continue diltiazem drip, and home metoprolol tartrate 12.5mg bid. Monitor tele, as she has been bradycardic when in sinus previously. Recent echo and nuclear stress were normal.
Original Note:
Consultation
Consultation Request
Date/Time Consultation Requested: 03/29/2024 03:30
Date/Time Consultation Performed: 03/29/2024 09:00
Requesting Provider: Dr. Jimenes
Performing Provider: JENNIFER Dupree for Dr. Winkler
Reason for Consultation: Atrial fibrillation with rapid ventricular response
Medical History
-
Chief Complaint: Abd pain
History of Present Illness:
Regla Huggins is an 78-year-old female (known to Dr. Wallace, her primary heat treater apprentice) with hypertension, HFpEF, paroxysmal atrial fibrillation (on apixaban) and pelvic abscess who presented to the emergency department with shortness of breath.
She believes it started a few days prior to arrival. It was severe yesterday. She feels improved today. She was also found to be in atrial fibrillation with rapid ventricular response. She was started on a diltiazem drip. She does not have any
known missed doses of apixaban. She is currently in rehab. She has a planned combined surgery with gynecology and colorectal surgery due to her abdominal abscess. The drain is still in place. Cardiology has been consulted for heart failure and
atrial fibrillation management.
Past Medical History
Past Medical History: Arrhythmias (Paroxysmal atrial fibrillation), CHF (HFpEF), HTN and Other (Tubo-ovarian abscess)
Past Surgical History: Gynecological
Social History
Alcohol: None
Drug: None
Living: [facility] ([facility])
Employment: Retired
Family History
Family History: Reviewed & Not Pertinent
Allergies / Home Medications
Allergy/AdvReac Type Severity Reaction Status Date / Time
amlodipine AdvReac stomach Verified 03/28/24 21:51
cramps
lisinopril AdvReac abdominal Verified 03/28/24 21:51
cramping
unknown drug Allergy Unknown Uncoded 03/28/24 21:51
�Medication �Instructions �Recorded �Confirmed �Type
cholecalciferol (vitamin D3) 50 50 mcg PO [id number] supplement 12/08/23 03/28/24 History
mcg (2,000 unit) tablet (Vitamin
D3)
loperamide 2 mg tablet 4 mg PO Q6HPRN PRN diarrhea 12/08/23 03/28/24 History
timolol maleate 0.5 % eye gel 1 drp BOTH EYES DAILY eye condition 12/08/23 03/28/24 History
forming solution
apixaban 5 mg tablet (Eliquis) 5 mg PO BID #60 tabs 12/14/23 03/28/24 Rx
Lactobacillus rhamnosus GG 10 1 cap PO DAILY Supplement 12/17/23 03/28/24 History
billion cell capsule (Culturelle)
acetaminophen 500 mg tablet 1,000 mg PO Q4HPRN PRN mild 02/23/24 03/28/24 History
(Tylenol Extra Strength) pain/temp >100
fluoxetine 20 mg capsule 20 mg PO DAILY Mental 02/23/24 03/28/24 History
Health/Anxiety
furosemide 20 mg tablet 20 mg PO MOWEFR Fluid 02/23/24 03/28/24 History
Retention/Swelling
metoprolol tartrate 25 mg tablet 12.5 mg PO BID Blood Pressure 03/10/24 03/28/24 History
alprazolam 0.25 mg tablet 0.25 mg PO BIDPRN PRN anxiety #10 03/20/24 03/28/24 Rx
tabs
ciprofloxacin HCl 500 mg tablet 500 mg PO BID 13 days #26 tabs 03/20/24 03/28/24 Rx
enalapril maleate 20 mg tablet 40 mg (2 x 20 mg) PO DAILY 30 days 03/20/24 03/28/24 Rx
(Vasotec) #60 tabs
fluconazole 200 mg tablet 400 mg (2 x 200 mg) PO DAILY 12 03/20/24 03/28/24 Rx
days #24 tabs
omeprazole 40 mg capsule,delayed 40 mg PO DAILY 30 days #30 caps 03/20/24 03/28/24 Rx
release
alprazolam 0.25 mg tablet (Xanax) 0.25 mg PO HS Sleep 03/28/24 03/28/24 History
bisacodyl 10 mg rectal suppository 10 mg NJ DAILYPRN PRN mom 03/28/24 03/28/24 History
(Dulcolax (bisacodyl)) ineffective after 24 hours
hydralazine 25 mg tablet 25 mg PO TID 03/28/24 03/28/24 History
hydralazine 50 mg tablet 50 mg PO TID 03/28/24 03/28/24 History
latanoprost 0.005 % eye drops 1 drp BOTH EYES HS 03/28/24 03/28/24 History
loperamide 2 mg tablet 2 mg PO [id number] PRN diarrhea 03/28/24 03/28/24 History
magnesium hydroxide 400 mg/5 mL 30 ml PO [id number] PRN no bm 3 days 03/28/24 03/28/24 History
oral suspension (Milk of Magnesia)
metronidazole 500 mg tablet 500 mg PO Q8H 03/28/24 03/28/24 History
ondansetron HCl 4 mg tablet 4 mg PO Q8HPRN PRN nausea 03/28/24 03/28/24 History
potassium chloride 20 mEq 20 meq PO DAILY 03/28/24 03/28/24 History
tablet,extended release
sodium phosphates 19 gram-7 118 ml NJ DAILYPRN PRN dulcolax 03/28/24 03/28/24 History
gram/118 mL enema (Fleet Enema) ineffective after 24 hrs
Review of Systems
-
History Source: Patient
All other systems: Negative unless noted
Constitutional: Fatigue
EENT: No Symptoms
Respiratory: No Symptoms
Cardiac: No Symptoms
Abdomen/GI: No Symptoms
: No Symptoms
Musculoskeletal: No Symptoms
Skin: No Symptoms
Neurological: No Symptoms
Endocrine: No Symptoms
Hematologic/Lymphatic: No Symptoms
Physical Exam
Vital Signs
Temp Pulse Resp BP Pulse Ox
98.1 F 85 17 105/72 92
03/29/24 07:51 03/29/24 08:50 03/29/24 05:00 03/29/24 08:50 03/29/24 06:01
Lab Results
Troponin I 0.609 ng/ml H* 03/29/24 04:59
Jju-X-Keiepzrdsad Pept > 59027 pg/ml 03/28/24 21:54
Physical Exam
General: Well Developed and Comfortable
HEENT: Normocephalic and Moist Mucous Membranes
Respiratory: Clear and Non Labored Respirations
Cardiac: S1/S2, Irregular Rhythm and Peripheral Edema (Trace lower extremity edema)
Breast: Deferred by me
GI: Soft, Non Tender, Non Distended and Normal Bowel Sounds
Rectal: Deferred by Provider
Genito-urinary: No Costovertebral Tender
Musculoskeletal: No Clubbing, No Cyanosis and No Edema
Skin: Warm and Dry
Neuro: AO x 3
Hematologic/Lymphatic: No Lymphadenopathy
Psych: Calm
Impression / Plan
-
BACKGROUND: 78F with hypertension, HFpEF, paroxysmal atrial fibrillation (on apixaban) and pelvic abscess with drain in place who presented to the emergency department with shortness of breath
Medical Voucher Clerk: Dr. Blas
PLAN:
Paroxysmal atrial fibrillation, presented in RVR
-Rate control with diltiazem drip
-Resume metoprolol to tartrate, will not increase home dose as she had some bradycardia and sinus
-CHADSVasc is 5 (Age, gender, HTN and CHF)
-Would avoid amiodarone and attempts at cardioversion as this would disrupt plan for surgery (she would need uninterrupted apixaban for 4 weeks)
HFpEF, acute on chronic
-Shortness of breath improved after intravenous furosemide
-She received furosemide Thursday/Thursday/Thursday outpatient, she will likely need daily dosing
-Trend daily weight, I/O, and BMP with diuresis
-Based on weight trend, we may need to readjust dry weight
HTN
-BP soft this morning
-Hold enalapril and hydralazine
Left tubo-ovarian abscess, drain in place, she has leukocytosis but no pain
Former smoker, continued cessation recommended
DATA:
Lexiscan nuclear stress test, 01/29/2024:
Negative ECG for ischemia. Normal perfusion imaging. EF 67%.
Low risk study but moderate risk due to inability to exercise.
Transthoracic echocardiogram, 12/09/2023:
Normal left ventricular size with mild concentric remodeling and normal
systolic function. No regional wall motion abnormalities are seen. LV ejection
fraction is 60-65% by Genao's method of discs. Normal diastolic function.
Normal right ventricular size and function.
Normal atria.
Aortic sclerosis without stenosis.
No other significant valve abnormalities.
No evidence of pulmonary hypertension.
Data Reviewed
-
EKG: Report Reviewed by me
Medical Tests (Nuc Med, Echo etc): Report Reviewed by me
Labs: Labs Reviewed by me
Old Records: Reviewed
[2024-03-29] MEDS: LOPRESSOR 12.5 MG PO ×2 (09:56→19:24)
[2024-03-29 10:36] LABS: Hematocrit 32.5 % (37.0-47.0); Hemoglobin 11.3 g/dL (12.0-16.0); Mean Corp Hgb Conc. 34.8 g/dL (33.0-37.0); Mean Corpuscular Hgb 30.9 pg (27.0-31.0); Mean Corpuscular Volume 88.8 fL (81.0-99.0); Mean Platelet Volume 11.5 fL (7.4-10.4); Platelet Count 368 10^3/uL (130-400); Red Blood Cell Count 3.66 10^6/uL (4.20-5.40); Red Cell Dist. Width 14.9 % (11.5-14.5); White Blood Cell Count 13.7 10^3/uL (4.8-10.8)
[2024-03-29 10:45] LABS: COVID-19 Antigen Negative (Negative)
[2024-03-29 10:57] LABS: Blood Urea Nitrogen 15 mg/dl (7-17); Calcium 9.2 mg/dl (8.4-10.2); Carbon Dioxide 25 mmol/L (22-30); Chloride 95 mmol/L (98-107); Estimated Creatinine Clearance 41 ml/min; Glucose 99 mg/dl (70-99); Potassium 3.4 mmol/L (3.5-5.1); Sodium 131 mmol/L (135-145); eGFR > 60.00
[2024-03-29] MEDS: KCL 20 MEQ PO (12:03)
[2024-03-29] MEDS: STERILE WATER FOR INJECTION 10 ML IV ×2 (12:22→19:24)
[2024-03-29] MEDS: MERREM 500 MG IV ×2 (12:23→19:24)
[2024-03-29] MEDS: MYCAMINE 105 MG IV (12:26)
--- NOTE | 2024-03-29 12:37 | PTCARENOTE ---
Cardizezm gtt tapered to off since ordered PO Lopressor administered w/ HR 80-low 100's. Kristal RODRIGUEZ made aware that Cardizem now off. Per cardiology, pt OK to downgrade to tele level of care. Pt's son visiting at bedside. Pox 97% on 1l/min-
placed on RA w/ POx 93%. Will monitor. Dr Enriquez notified of most recent WBC result = 13.7. No change in plan of care per ID at this time.
--- NOTE | 2024-03-29 15:33 | CM ---
Patient seen at bedside with patient son present in ICU. Patient admitted to from [facility] where she was staying for a short term rehab from 03/17/24. Previously the patient resided with her care home partner in a split level home with
four steps to enter via front door. The patient used a cane outside home. The patient had [facility] in the past. The patient's pharmacy of choice is the [facility], PCP is Dr. Maldonado. Patient would like to return to home if
possible but patient is scheduled for surgery in mid April per patient. Patient would accept [facility] if recommended. CM spoke with [facility] who indicated that if patient needed to return they would accept her, no bed hold
in place. CM will continue to follow for discharge planning needs.
Plan; SNF vs home with aides; pending medical treatment plan
--- NOTE | 2024-03-29 17:02 | PTCARENOTE ---
Pt sat up into chair position in bed. Tolerated well. HR 80-100's, AFib. Remains on RA w/ POx 90-91%. Pt provided w/ IS and instructed in use- pulling 500ml w/ much encouragement. Pox improved to 93%. No urine output noted - pt states 'I don't even
feel like I need to go'. Bladder scan completed= 184ml. Will continue to monitor. Pt's son gone home for evening, additional family arrived. Pt and son aware that pt has been made tele level of care and waiting on bed availability for transfer. No
complaints received or additional changes noted. Call parrish remains w/in pt reach.
--- NOTE | 2024-03-29 19:48 | PTCARENOTE ---
Received patient AAOx3, following commands, denying pain. Afib 100s-120s, BP 100s/70s, normothermic. +2 b/l lower extremity edema. 92% on room air, lung sounds diminished throughout. Purewick in place, bladder scanned for 233 mls, will recheck in 2
hours per protocol. Bruise on right buttock POA. PIVs patent, WNL, capped. Call parrish within reach.
[2024-03-29] MEDS: XANAX 0.25 MG PO (21:42)
[2024-03-29] MEDS: XALATAN OPHTHALMIC SOLUTION 1 DROP BOTH EYES (21:43)
[2024-03-30] VITALS (21 sets, daily range): BP systolic 115–145; BP diastolic 72–114; BMI 25.9
[2024-03-30] MEDS: MERREM 500 MG IV ×3 (04:29→20:02)
[2024-03-30] MEDS: STERILE WATER FOR INJECTION 10 ML IV ×3 (04:29→20:03)
[2024-03-30 04:43] LABS: Hemoglobin 12.1 g/dL (12.0-16.0); Mean Corp Hgb Conc. 35.6 g/dL (33.0-37.0); Mean Corpuscular Hgb 31.3 pg (27.0-31.0); Mean Corpuscular Volume 87.9 fL (81.0-99.0); Mean Platelet Volume 11.7 fL (7.4-10.4); Platelet Count 406 10^3/uL (130-400); Red Blood Cell Count 3.87 10^6/uL (4.20-5.40); Red Cell Dist. Width 14.9 % (11.5-14.5); White Blood Cell Count 14.4 10^3/uL (4.8-10.8)
[2024-03-30] MEDS: LOPRESSOR 12.5 MG PO ×2 (05:08→19:55)
--- NOTE | 2024-03-30 05:38 | PTCARENOTE ---
Heart rate jumping up to 130s/140s occasionally, AGRICULTURAL PRODUCE WASHER notified, morning dose of lopressor given early.
[2024-03-30 06:05] LABS: Blood Urea Nitrogen 19 mg/dl (7-17); Calcium 9.5 mg/dl (8.4-10.2); Carbon Dioxide 22 mmol/L (22-30); Chloride 96 mmol/L (98-107); Estimated Creatinine Clearance 41 ml/min; Glucose 105 mg/dl (70-99); Magnesium 1.7 mg/dl (1.6-2.3); Sodium 130 mmol/L (135-145); eGFR > 60.00
[2024-03-30] MEDS: CARDIZEM 125 IV (06:15)
--- NOTE | 2024-03-30 06:18 | PTCARENOTE ---
Heart rate continuously jumping up to 130s/140s, more ectopy, TELECOMMUNICATIONS TECHNICIAN notified, cardizem gtt restarted.
[2024-03-30] MEDS: PROZAC 20 MG PO (08:38)
[2024-03-30] MEDS: ELIQUIS 5 MG PO ×2 (08:38→19:55)
[2024-03-30] MEDS: TIMOPTIC 0.5% OPHTHALMIC SOLUTION 1 DROP BOTH EYES (08:38)
--- NOTE | 2024-03-30 08:40 | PTCARENOTE ---
Assumed care of pt at 0715 following shift report. Pt awake and resting quietly, reports 'I feel out of sorts'. When questioned, states she did not sleep last night. Emotional support provided to pt. Denies c/o pain. Reports SOB- POx 96% on O2 at
1l/min- no resp. distress noted. Per shift report, pt has not voided overnight (last urine output was w/ straight cath as documented yesterday AM). Bladder scan= 284ml. Due to almost 24hr w/o urine output, pt straight cathed for 325ml dark nicholas
urine. Pt tolerated well. Titrating Cardizem gtt to achieve HR 80-100 per ordered parameters (see worklist intervention). Physical assessment completed as documented. Hygiene and comfort care provided. Moira Jean and Brant notified of urine output.
Pt's son here to visit- updated on pts present condition, plan of care- questions answered. Pt and son educated on importance of IS use and pt able to demonstrate 500ml x1 'I can't do it more than once because it makes me gag'
[2024-03-30] MEDS: LASIX IV (08:41)
[2024-03-30] MEDS: LASIX 40 MG IV (08:45)
--- NOTE | 2024-03-30 08:54 | W.PN.ID1 ---
Date of Service
Date of Service: March 30, 2024
Today's Communication
- she is currently planned for the OR electively on 04/15; primary team is reviewing if it can be moved up; if not then would repeat ct a/p with IV and oral contrast to see if drain requires repositioning or replacement
Assessment / Plan
Intraabdominal Abscess - likely diverticular
- no drain output, at this point would reassess with CT a/p with iv and oral contrast, may consider repositioning
- 03/11 culture: few Pseudomonas, many ESBL K oxytoca, few S cerevisiae
- c/w micafungin for present
- c/w with meropenem for present
- she is currently planned for the OR electively on 04/15; primary team is reviewing if it can be moved up; if not then would repeat ct a/p with IV and oral contrast to see if drain requires repositioning or replacement
Afib with RVR
Flash Pulmonay edema
- management per IM service
- leukocytosis may be reactive
Chief Complaint
-: Other (intraabdominal abscess)
Subjective / Review of Systems
remains afebrile
bp stable
afib today - started cardizem drip
no abdominal pain
no significant appetite
Vital Signs / Physical Exam
Vital Signs
Vital Signs
Temp Pulse Resp BP Pulse Ox
97.7 F 100 18 140/93 92
03/30/24 07:25 03/30/24 08:45 03/30/24 06:00 03/30/24 08:45 03/30/24 06:00
Physical Exam
Constitutional: No Acute Distress and Chronically Ill
Cardiovascular: Regular Rate and S1/S2; Negative Murmur or Rub
Pulmonary: Clear and Symmetric; Negative Wheezes or Rales
Gastrointestinal: Soft, Non Tender, Non Distended and Normal Bowel Sounds
Skin: Warm and Dry; Negative Rash or Jaundice
Lines: Other (drain no output)
Objective Data
Lab Data
Lab Results
03/30/24 04:37
03/30/24 05:16
PT 24.1 Sec (11.4-14.6) H 03/28/24 21:54
INR 2.17 03/28/24 21:54
Estimated Creat Clear 41 ml/min 03/30/24 05:16
Total Bilirubin 1.7 mg/dl (0.2-1.3) H 03/28/24 21:54
AST 132 U/L (14-36) H 03/28/24 21:54
ALT 35 U/L (0-35) 03/28/24 21:54
Alkaline Phosphatase 51 U/L (38-126) 03/28/24 21:54
Most recent labs reviewed.
Micro Results:
03/29/24 04:25 MRSA Screen - Final
Nose No Methicillin Resistant Staphylococcus aureus isolated.
Care Review
Plan reviewed with: Physician (Dr Guo - surgery)
--- NOTE | 2024-03-30 09:32 | W.PN.CD ---
Today's Communication / Plan
-
Rate control
Cautious diuresis
Continue Eliquis
Impression / Plan
-
BACKGROUND: 78F with hypertension, HFpEF, paroxysmal atrial fibrillation (on apixaban) and pelvic abscess with drain in place who presented to the emergency department with shortness of breath
Mortgage Protection Sales: Dr. Blas
Paroxysmal atrial fibrillation, presented in RVR
- Rate control with diltiazem drip
- Resume metoprolol to tartrate, will not increase home dose as she had some bradycardia and sinus
- [id number] is 5 (Age, gender, HTN and HF)
- No plans for cardioversion
New LV dysfunction
- Likely related to infection and fast AFib
- Anticipate LVEF will recover
- Can add GDMT for LV dysfunction as BP allows
Known HFpEF, acute on chronic
-Shortness of breath improved after intravenous furosemide
-She received furosemide Thursday/Thursday/Thursday outpatient, she will likely need daily dosing
-Trend daily weight, I/O, and BMP with diuresis
-Based on weight trend, we may need to readjust dry weight
HTN
-BP soft this morning
-Hold enalapril and hydralazine
Left tubo-ovarian abscess, drain in place, she has leukocytosis but no pain
Former smoker, continued cessation recommended
DATA:
Echo this admit :
Moderately reduced left ventricular systolic function. Normal right
ventricular size and reduced systolic function of the apex
LV ejection fraction is 30-35% by visual estimate.
Hypokinesis of the mid to apical arredondo with the basal arredondo best preserved.
Moderate pulmonary hypertension. Bilateral pleural effusion present.
Compared to the prior study on 12/09/2023, the systolic dysfunction is new.
Pulmonary hypertension and pleural effusions are also new.
Lexiscan nuclear stress test, 01/29/2024:
Negative ECG for ischemia. Normal perfusion imaging. EF 67%.
Low risk study but moderate risk due to inability to exercise.
Transthoracic echocardiogram, 12/09/2023:
Normal left ventricular size with mild concentric remodeling and normal
systolic function. No regional wall motion abnormalities are seen. LV ejection
fraction is 60-65% by Genao's method of discs. Normal diastolic function.
Normal right ventricular size and function.
Normal atria.
Aortic sclerosis without stenosis.
No other significant valve abnormalities.
No evidence of pulmonary hypertension.
Physical Exam
Vital Signs/Labs
Vital Signs
Temp Pulse Resp BP Pulse Ox
97.7 F 100 18 140/93 92
03/30/24 07:25 03/30/24 08:45 03/30/24 06:00 03/30/24 08:45 03/30/24 06:00
03/29/24 03/30/24 03/31/24
06:59 06:59 06:59
Actual Weight 67.8 kg 66.3 kg
03/30/24 04:37
03/30/24 05:16
PT 24.1 Sec (11.4-14.6) H 03/28/24 21:54
INR 2.17 03/28/24 21:54
Magnesium 1.7 mg/dl (1.6-2.3) 03/30/24 05:16
03/28/24
21:54
Xwb-A-Kcyuscguzxm Pept > 26240
LAB Results
03/28/24 03/29/24 03/29/24
21:54 03:00 04:59
Troponin I 0.863 H* 0.722 H* 0.609 H*
Physical Exam
Constitutional: No acute distress
EENT: Anicteric
Cardiovascular: Rhythm/rate is irregular and S1S2 is normal
Respiratory: Respiratory effort normal and Wheeze Absent
GI: Soft and Distention absent
Neuro/Psych: AO x 3
Data Reviewed
-
Date of Service: March 30, 2024
--- NOTE | 2024-03-30 10:35 | PTCARENOTE ---
Bladder scan= 410ml. TT to Dr Guo w/ update- order received for Borjas insertion- placed following sterile technique w/ second RN present. Pt tolerated well. Initial output of 425ml clear, straw color urine.
[2024-03-30] MEDS: IMODIUM 2 MG PO (10:37)
[2024-03-30] MEDS: MYCAMINE 105 MG IV (10:37)
--- NOTE | 2024-03-30 10:44 | W.PN.HOSP.TC ---
Today's Communication/Plan
-
see note
Assessment / Plan
Assessment / Plan
1. Paroxysmal atrial fibrillation with rapid ventricular rate
-Patient have been on regimen of beta-matt/Eliquis at home
-Patient came in for RVR -was asymptomatic
-Got started on diltiazem drip at 10 mg/h currently, patient was tried to be weaned off to oral meds but went into RVR again in the night. Further meds adjustment per cards.
-Continue Eliquis for now
2. Peridiverticular/tubo-ovarian abscess
History of recurrent sigmoid diverticulitis
Recurrence leukocytosis
-Patient is planned to undergo surgery for persistent tubo-ovarian/peridiverticular abscess by Dr. Griffith and Demario
-GRAHAM drain showing Pseudomonas aeruginosa/ESBL Klebsiella/Saccharomyces service
-Patient was discharged on regimen of ciprofloxacin 500 twice daily/fluconazole 400 daily/Flagyl 500 Q8 on 03/20
-Patient planned to undergo surgery on 04/15
-In light of recurrence of leukocytosis, ID consulted for further help. at admission regimen changed to Merrem/fluconazole
3. Acute on Chronic sysotlic HF
Acute hypoxic resp insufficiency
-TTE showing EF 30-35%, hypokinesis of mid to apical arredondo. mod pulm HTN
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
-GDMT to be added once BP improved
-Chest x-ray admission showing questionable pulmonary congestion
-proBNP greater than 27,000 at admission
-Patient have minimal hypoxia as well
-Maintain on IV Lasix for now, follow weight and creatinine
4. Recurrent urinary retention
-Patient had problem with urinary retention last admission
-continues to have recurrent urinary retention, will order gaona catheter
-reason likely with bladder laxity from amb dysfunction/repeated admission and altered sensation with pelvic pathology
5. Elevated troponin
-From nonischemic myocardial injury likely
-Continue monitor
Eliquis
Full code
Total time spent : 54 mins
Discussed care plan with son
Upgraded to IMU level
Anticipated Discharge: > 48 hours
Subjective/Interval History
-
Date of Service: March 30, 2024
resting comfortably in bed
reported difficulty voiding, no abd discomfort
some episode of dyspnea in morning, not on o2
Objective Data
-
Labs:
Laboratory Results
03/30/24 03/30/24
04:37 05:16
WBC 14.4 H
Hgb 12.1
Hct 34.0 L
Plt Count 406 H
Sodium Cancelled 130 L
Potassium Cancelled 4.0
Chloride Cancelled 96 L
Carbon Dioxide Cancelled 22
BUN Cancelled 19 H
Creatinine Cancelled 0.9
Glucose Cancelled 105 H
Calcium Cancelled 9.5
Vital Signs:
Vital Signs
Temp Pulse Resp BP Pulse Ox
97.7 F 105 23 128/99 96
03/30/24 07:25 03/30/24 09:00 03/30/24 09:00 03/30/24 09:00 03/30/24 09:00
I&O
03/29/24 03/30/24 03/31/24
06:59 06:59 06:59
Intake Total 25 / 35 390 / 390
Output Total 250 / 250 625 / 625 325 / 325
Balance -225 / -215 -235 / -235 -325 / -325
Review of Systems
-
Respiratory: Reports Trouble Breathing
Cardiac: Reports No Symptoms
Abdomen/GI: Reports No Symptoms
Physical Exam
-
General: Comfortable and Cachectic
HEENT: Negative Oxygen
Respiratory: Clear to Auscultation
Cardiac: S1/S2, Irregular Rhythm and Tachycardic; Negative Murmur or Rub
GI: Soft, Nontender and Nondistended
Musculoskeletal: No Edema
Neuro: Awake, Alert, Oriented, No Motor Deficits and Nonfocal/Grossly Intact
Psych: Calm
--- NOTE | 2024-03-30 13:00 | PTCARENOTE ---
Pt asleep, woken for med administration and care. Speech slow but improved as more awake. Following commands appropriately w/o deficit noted. Per shift report this am, pt did not sleep last night. Pt returned to sleep once repositioned. Tapering
Cardizem per HR parameters. Pt's son remains attentive at bedside.
--- NOTE | 2024-03-30 15:36 | PN.CDI ---
CDI
- -
CDI:
Physician Documentation Request
Admit Date: 03/29/24 02:07
Dear Doctor Brant,
Clinical Indicators:
Patient admitted with acute on chronic systolic heart failure.
Lasix IV x 3 doses given.
Sodium trend:
03/28/24 03/29/24 03/29/24
21:54 03:00 10:21
Sodium 131 L 132 L 131 L
03/30/24
05:16
Sodium 130 L
Based on the above, could you clarify in the progress notes, the appropriate diagnosis, if significant, that supports the above abnormalities and additional evaluation, monitoring and/or treatment rendered:
Hyponatremia
Abnormal lab values, clinically insignificant
Other
Use of terms such as suspected, likely, concern for, or probable (associated with a specific diagnosis that is being evaluated, monitored, or treated as if it exists) are acceptable and can be coded in the inpatient setting, when documented at the
time of discharge.
Thank you,
Adele Babb RN BSN
CDI Specialist
available via tiger text
Please use your independent medical judgment in providing your response.
--- NOTE | 2024-03-30 17:33 | PTCARENOTE ---
Pt to transfer to Rm 2241. Report called to '[place]' KEVIN. Pt to transfer via bed and personal belongings sent w/ pt. Pt's daughter in room and aware of transfer. No changes noted or new complaints received prior to transfer.
--- NOTE | 2024-03-30 18:24 | PTCARENOTE ---
Received patient from ICU in her bed. Remains in AF, HR in the 80's, IV cardizem infusing at 5mg/hr. 94% on RA, fine crackles auscultated at the bases, afebrile, VSS. GRAHAM drain at left buttocks area intact, with scan brown drainage in the tubing but
no drainage in the bulb. Bilateral lower extremity edema noted, legs elevated on pillows. Patient's daughter at the bedside, no change since previous nurse's assessment. Call parrish in reach.
[2024-03-30] MEDS: TYLENOL 650 MG PO (18:38)
--- NOTE | 2024-03-30 19:08 | PTCARENOTE ---
Patient complaining of a headache rated 8/10, medicated with tylenol as requested.
--- NOTE | 2024-03-30 21:20 | PTCARENOTE ---
Pt rec'd at change of shift with daughter at bedside. Controlled Afib on telemetry. Pt with complete resolution of her h/a after receiving Tylenol on dayshift.
Cardizem gtt continued at 5 mg/hr. GRAHAM drain with DDI, 1 drop of brown fluid noted in bulb, reconstituted at that time. Meds in applesauce per pt request.
[2024-03-30] MEDS: XANAX 0.25 MG PO (23:10)
[2024-03-31] VITALS (8 sets, daily range): BP systolic 99–137; BP diastolic 74–104; PULSE 65; O2SAT 93; BMI 26.3
[2024-03-31] MEDS: XALATAN OPHTHALMIC SOLUTION 1 DROP BOTH EYES ×2 (00:29→23:20)
[2024-03-31] MEDS: CARDIZEM 125 IV ×2 (01:56→23:20)
[2024-03-31] MEDS: STERILE WATER FOR INJECTION 10 ML IV ×3 (04:28→20:07)
[2024-03-31] MEDS: MERREM 500 MG IV ×3 (04:29→20:07)
[2024-03-31 05:21] LABS: Hematocrit 36.8 % (37.0-47.0); Hemoglobin 12.7 g/dL (12.0-16.0); Mean Corp Hgb Conc. 34.5 g/dL (33.0-37.0); Mean Corpuscular Hgb 30.4 pg (27.0-31.0); Mean Platelet Volume 11.9 fL (7.4-10.4); Platelet Count 440 10^3/uL (130-400); Red Blood Cell Count 4.18 10^6/uL (4.20-5.40); Red Cell Dist. Width 14.6 % (11.5-14.5); White Blood Cell Count 11.5 10^3/uL (4.8-10.8)
[2024-03-31 06:23] LABS: Blood Urea Nitrogen 17 mg/dl (7-17); Calcium 9.2 mg/dl (8.4-10.2); Carbon Dioxide 27 mmol/L (22-30); Chloride 93 mmol/L (98-107); Estimated Creatinine Clearance 46 ml/min; Glucose 107 mg/dl (70-99); Potassium 3.2 mmol/L (3.5-5.1); Sodium 131 mmol/L (135-145); eGFR > 60.00
[2024-03-31] MEDS: KCL 40 MEQ PO (06:42)
[2024-03-31] MEDS: LOPRESSOR 12.5 MG PO (08:09)
[2024-03-31] MEDS: LASIX 40 MG IV (08:09)
[2024-03-31] MEDS: PROZAC 20 MG PO (08:09)
[2024-03-31] MEDS: ELIQUIS 5 MG PO ×2 (08:09→20:07)
--- NOTE | 2024-03-31 08:43 | PTCARENOTE ---
Assumed care of pt from night RN. Pt received awake and alert, Ox3. VSs, CM shows AF 80-100's, Cardizem drip infusing through RAC at 5 mg/hr. GRAHAM intact to left hip, draining scant amounts of serosang fluid. Borjas cath intact as ordered, draining
light yellow urine. She denies any pain or discomfort, son at bedside.
--- NOTE | 2024-03-31 08:54 | W.PN.CD ---
Today's Communication / Plan
-
Cont Diuresis today, PO tomorrow
sglt2i and ARNI to be priced by case management
Impression / Plan
-
BACKGROUND: 78F with hypertension, HFpEF, paroxysmal atrial fibrillation (on apixaban) and pelvic abscess with drain in place who presented to the emergency department with shortness of breath
Chief Medical Director: Dr. Blas
Paroxysmal atrial fibrillation, presented in RVR
- Rate control with diltiazem drip
- Increased metoprolol, however cautiously given, previously she had some bradycardia
- MAO1TT0Mmio is 5 (Age, gender, HTN and HF)
- No plans for cardioversion
New LV dysfunction
- Likely related to infection and fast AFib
- Anticipate LVEF will recover
- Can add GDMT for LV dysfunction as BP allows
- will rogers Entresto and sglt2i
Known HFpEF, acute on chronic
-Shortness of breath improved after intravenous furosemide
-She received furosemide Thursday/Thursday/Thursday outpatient, she will likely need daily dosing
-Trend daily weight, I/O, and BMP with diuresis
-Based on weight trend, we may need to readjust dry weight
HTN
-BP soft this morning
-Hold enalapril and hydralazine
Left tubo-ovarian abscess, drain in place, she has leukocytosis but no pain
Former smoker, continued cessation recommended
DATA:
Echo this admit :
Moderately reduced left ventricular systolic function. Normal right
ventricular size and reduced systolic function of the apex
LV ejection fraction is 30-35% by visual estimate.
Hypokinesis of the mid to apical arredondo with the basal arredondo best preserved.
Moderate pulmonary hypertension. Bilateral pleural effusion present.
Compared to the prior study on 12/09/2023, the systolic dysfunction is new.
Pulmonary hypertension and pleural effusions are also new.
Lexiscan nuclear stress test, 01/29/2024:
Negative ECG for ischemia. Normal perfusion imaging. EF 67%.
Low risk study but moderate risk due to inability to exercise.
Transthoracic echocardiogram, 12/09/2023:
Normal left ventricular size with mild concentric remodeling and normal
systolic function. No regional wall motion abnormalities are seen. LV ejection
fraction is 60-65% by Genao's method of discs. Normal diastolic function.
Normal right ventricular size and function.
Normal atria.
Aortic sclerosis without stenosis.
No other significant valve abnormalities.
No evidence of pulmonary hypertension.
Physical Exam
Vital Signs/Labs
Vital Signs
Temp Pulse Resp BP Pulse Ox
97.5 F 84 16 136/97 93
03/31/24 08:07 03/31/24 08:07 03/31/24 08:07 03/31/24 08:06 03/31/24 08:34
03/30/24 03/31/24 04/01/24
06:59 06:59 06:59
Actual Weight 146 lb 2.664 oz 148 lb 9.465 oz
03/31/24 04:49
03/31/24 05:47
PT 24.1 Sec (11.4-14.6) H 03/28/24 21:54
INR 2.17 03/28/24 21:54
Magnesium 1.7 mg/dl (1.6-2.3) 03/30/24 05:16
03/28/24
21:54
Ocz-J-Oycqengivlc Pept > 30842
LAB Results
03/28/24 03/29/24 03/29/24
21:54 03:00 04:59
Troponin I 0.863 H* 0.722 H* 0.609 H*
Physical Exam
Constitutional: No acute distress and Comfortable
EENT: Anicteric
Cardiovascular: Rhythm/rate is irregular and Pedal edema present (trivial)
Respiratory: Respiratory effort normal and Lungs clear to auscul.
GI: Soft
Neuro/Psych: Alert and Oriented
Data Reviewed
-
Date of Service: March 31, 2024
EKG: Tracing Personally Visualized and interpreted (af)
Echo: Report Reviewed by me
Labs: Labs Reviewed by me
--- NOTE | 2024-03-31 09:19 | W.PN.ID1 ---
Date of Service
Date of Service: March 31, 2024
Today's Communication
CT today with catheter outside of the pelvic collection - tomorrow will discuss with IR if drain can be repositioned
Assessment / Plan
Intraabdominal Abscess - likely diverticular
- no drain output, at this point would reassess with CT a/p with iv and oral contrast, may consider repositioning
- 03/11 culture: few Pseudomonas, many ESBL K oxytoca, few S cerevisiae
- CT today with catheter outside of the pelvic collection - tomorrow will discuss with IR if drain can be repositioned
- c/w micafungin for present
- c/w with meropenem for present
- she is currently planned for the OR electively on 04/15
Chief Complaint
-: Other (intraabdominal abscess)
Subjective / Review of Systems
afebrile
tolerating current therapies
drain with 0 output
Vital Signs / Physical Exam
Vital Signs
Vital Signs
Temp Pulse Resp BP Pulse Ox
97.5 F 84 16 136/97 93
03/31/24 08:07 03/31/24 08:07 03/31/24 08:07 03/31/24 08:06 03/31/24 08:34
Physical Exam
Constitutional: No Acute Distress
Cardiovascular: Regular Rate and S1/S2; Negative Murmur or Rub
Pulmonary: Clear and Symmetric; Negative Wheezes or Rales
Gastrointestinal: Soft, Non Tender, Non Distended and Normal Bowel Sounds
Skin: Warm and Dry; Negative Rash or Jaundice
Objective Data
Lab Data
Lab Results
03/31/24 04:49
03/31/24 05:47
PT 24.1 Sec (11.4-14.6) H 03/28/24 21:54
INR 2.17 03/28/24 21:54
Estimated Creat Clear 46 ml/min 03/31/24 05:47
Total Bilirubin 1.7 mg/dl (0.2-1.3) H 03/28/24 21:54
AST 132 U/L (14-36) H 03/28/24 21:54
ALT 35 U/L (0-35) 03/28/24 21:54
Alkaline Phosphatase 51 U/L (38-126) 03/28/24 21:54
Most recent labs reviewed.
Micro Results:
03/29/24 04:25 MRSA Screen - Final
Nose No Methicillin Resistant Staphylococcus aureus isolated.
Care Review
Plan reviewed with: Physician (Dr Guo - ordering ct)
[2024-03-31] MEDS: TIMOPTIC 0.5% OPHTHALMIC SOLUTION 1 DROP BOTH EYES (09:51)
--- NOTE | 2024-03-31 10:59 | W.PN.HOSP.TC ---
Addendum entered and electronically signed by Mohit Guo MD 03/31/24 13:47:
Discussed with CRS PA admissions advisor and Dr Griffith will stop by tomorrow to discuss OR timign with pt/family
CT a/p ordered by ID, f/u results
Add on to diagnosis list:
Hyponatremia - minimal, monitor
Hypokalemia - replace as needed
Original Note:
Today's Communication/Plan
-
see note
Assessment / Plan
Assessment / Plan
1. Paroxysmal atrial fibrillation with rapid ventricular rate
-Patient have been on regimen of beta-matt/Eliquis at home
-Patient came in for RVR - was asymptomatic
-Continue Eliquis for now
-On Cardizem drip @ 5mg/hr, on Lopressor 25mg/bid.
2. Peridiverticular/tubo-ovarian abscess
History of recurrent sigmoid diverticulitis
Recurrence leukocytosis
-Patient is planned to undergo surgery for persistent tubo-ovarian/peridiverticular abscess by Dr. Griffith and Demario
-GRAHAM drain showing Pseudomonas aeruginosa/ESBL Klebsiella/Saccharomyces service
-Patient was discharged on regimen of ciprofloxacin 500 twice daily/fluconazole 400 daily/Flagyl 500 Q8 on 03/20
-Patient planned to undergo surgery on 04/15
-In light of recurrence of leukocytosis, ID consulted for further help. at admission regimen changed to Merrem/fluconazole
-left message for CRS to call back to discuss timing of sx, awaiting reponse
3. Acute on Chronic sysotlic HF
Acute hypoxic resp insufficiency
-TTE showing EF 30-35%, hypokinesis of mid to apical arredondo. mod pulm HTN
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
-GDMT to be added once BP improved
-Chest x-ray admission showing questionable pulmonary congestion
-proBNP greater than 27,000 at admission
-Patient have minimal hypoxia as well
-Maintain on IV Lasix for now, cr stable, weight up 1 kg today. monitor
4. Recurrent urinary retention
-Patient had problem with urinary retention last admission
-continues to have recurrent urinary retention, will order gaona catheter
-reason likely with bladder laxity from amb dysfunction/repeated admission and altered sensation with pelvic pathology
5. Elevated troponin
-From nonischemic myocardial injury likely
-Continue monitor
Eliquis
Full code
Anticipated Discharge: 24 - 48 hours
Subjective/Interval History
-
Date of Service: March 31, 2024
resting comfortable in chair
no palpitation/chest pain
no new issues
Objective Data
-
Labs:
Laboratory Results
03/31/24 03/31/24
04:49 05:47
WBC 11.5 H
Hgb 12.7
Hct 36.8 L
Plt Count 440 H
Sodium Cancelled 131 L
Potassium Cancelled 3.2 L
Chloride Cancelled 93 L
Carbon Dioxide Cancelled 27
BUN Cancelled 17
Creatinine Cancelled 0.8
Glucose Cancelled 107 H
Calcium Cancelled 9.2
Vital Signs:
Vital Signs
Temp Pulse Resp BP Pulse Ox
97.5 F 84 16 136/97 93
03/31/24 08:07 03/31/24 08:07 03/31/24 08:07 03/31/24 08:06 03/31/24 08:34
I&O
03/30/24 03/31/24 04/01/24
06:59 06:59 06:59
Intake Total 390 / 390 330 / 330
Output Total 625 / 625 1450 / 1450
Balance -235 / -235 -1120 / -1120
Review of Systems
-
Respiratory: Reports No Symptoms
Cardiac: Reports No Symptoms
Abdomen/GI: Reports No Symptoms
Physical Exam
-
General: No Apparent Distress and Comfortable
HEENT: Negative Oxygen
Respiratory: Clear to Auscultation
Cardiac: S1/S2 and Irregular Rhythm; Negative Murmur or Rub
GI: Soft, Nontender and Nondistended
Musculoskeletal: No Edema
Neuro: Awake, Alert, Oriented, No Motor Deficits and Nonfocal/Grossly Intact
Psych: Calm
[2024-03-31] MEDS: MYCAMINE 105 MG IV (11:05)
[2024-03-31] MEDS: OMNIPAQUE 50 ML PO (12:16)
--- NOTE | 2024-03-31 12:22 | PTCARENOTE ---
Omnipaque administered as ordered for CT this afternoon.
--- NOTE | 2024-03-31 13:15 | PN.CDI ---
CDI
- -
CDI:
Physician Documentation Request
Admit Date: 03/29/24 02:07
Dear Doctor Brant,
Clinical Indicators:
Patient admitted with acute on chronic systolic heart failure.
03/29, 03/30 Potassium chloride po x 2 doses given.
Potassium levels:
03/29/24 03/31/24
05:47
Potassium 3.4 L 3.2 L
Based on the above, could you clarify in the progress notes, the appropriate diagnosis, if significant, that supports the above abnormalities and additional evaluation, monitoring and/or treatment rendered:
Hypokalemia
Abnormal lab value, clinically insignificant
Other,please specify
Use of terms such as suspected, likely, concern for, or probable (associated with a specific diagnosis that is being evaluated, monitored, or treated as if it exists) are acceptable and can be coded in the inpatient setting, when documented at the
time of discharge.
Thank you,
Adele Babb RN BSN
CDI Specialist
available via tiger text
Please use your independent medical judgment in providing your response.
--- NOTE | 2024-03-31 13:46 | CM ---
Reviewed chart. Mrs. Huggins was transferred to IVU. Met with Mrs. Huggins and her son to review discharge plans. She states she is tired. Her son is hoping they can move the surgery day up and she can have her surgery sooner. Son states prior
to admission she was at [facility] for nine days. Son states she does not want to go to rehab. He wanted to know if Medicare covered under nursing care at home. Reviewed VNA services and out of pocket cost for caregivers for 8,12,24 hour
care. Son states before this illness that started in November she was residing with a significant other in a bi- level home six steps to enter. Prior to admission she was independent with adls and ambulation in the home. She used a single point cane
in the community. She has had [facility] in the past. She has a prescription plan with [facility] and uses [facility]. Telephone call to [employer], ([phone]) ID # [id number] to check co-pay for Entresto, Jardiance and Farxiga.
Entresto 30 day supply $47.00 and 90 day supply $126.00. Jardiance 10 mg is $47.00 a month and $126.00 for 90 days. Farxiga 10 mg is $47.00 a month and $126.00 a 90 day supply. Reviewed co-pay with her son and he is agreeable to the co-pay. She can
use the one month free coupon for Entresto, Jardiance and Farxiga. Placed the one month free coupon in her red discharge folder. Medical work-up in progress. The discharge plan is to go to rehab. when medically stable.
--- NOTE | 2024-03-31 17:10 | PN.IRAD.UPD ---
Update Note - IRAD
- -
Cleaned left sided gluteal drain with chloraprep and removed bedside. Site dressed with a primapore dressing.
Deny Galnido RT(R)()
[2024-03-31] MEDS: LOPRESSOR 25 MG PO (20:07)
[2024-03-31] MEDS: XANAX 0.25 MG PO (23:20)
[2024-04-01] VITALS (10 sets, daily range): BP systolic 100–136; BP diastolic 73–107; BMI 26.4
[2024-04-01] MEDS: MERREM 500 MG IV ×3 (04:17→23:40)
[2024-04-01] MEDS: STERILE WATER FOR INJECTION 10 ML IV ×3 (04:17→23:40)
[2024-04-01 05:46] LABS: Hematocrit 37.4 % (37.0-47.0); Hemoglobin 12.9 g/dL (12.0-16.0); Mean Corp Hgb Conc. 34.5 g/dL (33.0-37.0); Mean Corpuscular Hgb 29.5 pg (27.0-31.0); Mean Corpuscular Volume 85.4 fL (81.0-99.0); Mean Platelet Volume 11.6 fL (7.4-10.4); Platelet Count 550 10^3/uL (130-400); Red Blood Cell Count 4.38 10^6/uL (4.20-5.40); Red Cell Dist. Width 15.1 % (11.5-14.5); White Blood Cell Count 11.6 10^3/uL (4.8-10.8)
[2024-04-01 06:05] LABS: Blood Urea Nitrogen 17 mg/dl (7-17); Calcium 9.5 mg/dl (8.4-10.2); Carbon Dioxide 27 mmol/L (22-30); Chloride 90 mmol/L (98-107); Estimated Creatinine Clearance 46 ml/min; Glucose 98 mg/dl (70-99); Sodium 129 mmol/L (135-145); eGFR > 60.00
[2024-04-01] MEDS: TIMOPTIC 0.5% OPHTHALMIC SOLUTION 1 DROP BOTH EYES (09:20)
[2024-04-01] MEDS: PROZAC 20 MG PO (09:20)
[2024-04-01] MEDS: LOPRESSOR 25 MG PO ×3 (09:21→21:00)
[2024-04-01] MEDS: LASIX 40 MG IV ×2 (09:21→15:30)
[2024-04-01] MEDS: ELIQUIS 5 MG PO ×2 (09:21→21:01)
--- NOTE | 2024-04-01 09:28 | W.PN.HOSP.TC ---
Today's Communication/Plan
-
see note
Assessment / Plan
Assessment / Plan
1. Paroxysmal atrial fibrillation with rapid ventricular rate
-Patient have been on regimen of beta-matt/Eliquis at home
-Patient came in for RVR - was asymptomatic
-Continue Eliquis for now
-On Cardizem drip @ 5mg/hr - cardio managing , on Lopressor 25mg/bid.
2. Peridiverticular/tubo-ovarian abscess
History of recurrent sigmoid diverticulitis
Recurrence leukocytosis
-Patient is planned to undergo surgery for persistent tubo-ovarian/peridiverticular abscess by Dr. Griffith and Demario
-GRAHAM drain showing Pseudomonas aeruginosa/ESBL Klebsiella/Saccharomyces service
-Patient was discharged on regimen of ciprofloxacin 500 twice daily/fluconazole 400 daily/Flagyl 500 Q8 on 03/20
-Patient planned to undergo surgery on 04/15
-In light of recurrence of leukocytosis, ID consulted for further help. at admission regimen changed to Merrem/fluconazole
-CT a/p yesterday showing displaced GRAHAM drain although abscess size decreased, repeat GRAHAM drain not possible per IRAD - CRS/onc drop forge hand notified.
3. Acute on Chronic sysotlic HF
Acute hypoxic resp insufficiency
-TTE showing EF 30-35%, hypokinesis of mid to apical arredondo. mod pulm HTN
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
-GDMT to be added once BP improved
-Chest x-ray admission showing questionable pulmonary congestion
-proBNP greater than 27,000 at admission
-Patient have minimal hypoxia as well
-Maintain on IV Lasix for now, cr stable
4. Recurrent urinary retention
-Patient had problem with urinary retention last admission
-continues to have recurrent urinary retention, will order gaona catheter
-reason likely with bladder laxity from amb dysfunction/repeated admission and altered sensation with pelvic pathology
5. Elevated troponin
-From nonischemic myocardial injury likely
-Continue monitor
6. Bilateral pleural effusion
-IRAD consulted for thoracentesis to improve rosalia-operative complication risk
7. Diarrhea
- reported loose stool in the AM
-possible abx use related, if persists and with long abx course will discuss with ID for need of Cdiff check
Eliquis
Full code
Care plan discussed with CRS/Onc drop forge hand/ID
Son updated.
Total time spent : 52 mins
Anticipated Discharge: 24 - 48 hours
Subjective/Interval History
-
Date of Service: April 01, 2024
afebrile overnight
no abd pain
gaona remains in
Objective Data
-
Labs:
Laboratory Results
04/01/24
04:57
WBC 11.6 H
Hgb 12.9
Hct 37.4
Plt Count 550 H D
Sodium 129 L
Potassium 4.0
Chloride 90 L
Carbon Dioxide 27
BUN 17
Creatinine 0.8
Glucose 98
Calcium 9.5
Vital Signs:
Vital Signs
Temp Pulse Resp BP Pulse Ox
97.7 F 86 16 133/86 92
04/01/24 04:22 04/01/24 09:21 04/01/24 04:22 04/01/24 09:21 04/01/24 04:24
I&O
03/31/24 04/01/24 04/02/24
06:59 06:59 06:59
Intake Total 330 / 330 1060 / 1060
Output Total 1450 / 1450 1250 / 1250
Balance -1120 / -1120 -190 / -190
Review of Systems
-
Respiratory: Reports No Symptoms
Cardiac: Reports No Symptoms
Abdomen/GI: Reports No Symptoms
Physical Exam
-
General: No Apparent Distress and Comfortable
HEENT: Negative Oxygen
Respiratory: Clear to Auscultation
Cardiac: S1/S2 and Irregular Rhythm; Negative Murmur or Rub
GI: Soft, Nontender and Nondistended
Musculoskeletal: No Edema
Neuro: Awake, Alert, Oriented, No Motor Deficits and Nonfocal/Grossly Intact
Psych: Calm
--- NOTE | 2024-04-01 10:15 | W.PN.ID1 ---
Date of Service
Date of Service: April 01, 2024
Today's Communication
- c/w micafungin through the planned procedure and 5 days after 04/20
- c/w with meropenem through the planned procedure and 5 days after 04/20
- script given to supervisor case loading
- picc
- she is currently planned for the OR electively on 04/15
Assessment / Plan
Intraabdominal Abscess - likely diverticular
- no drain output - could be removed
- 03/11 culture: few Pseudomonas, many ESBL K oxytoca, few S cerevisiae
- CT today with catheter outside of the pelvic collection - unfortunately cannot be repositioned safely
- c/w micafungin through the planned procedure and 5 days after 04/20
- c/w with meropenem through the planned procedure and 5 days after 04/20
- script given to supervisor case loading
- picc
- she is currently planned for the OR electively on 04/15
Chief Complaint
-: Other (intraabdominal abscess)
Subjective / Review of Systems
afebrile
bp stable
tolerating current therapies
drain replacement not feasible per IR
Vital Signs / Physical Exam
Vital Signs
Vital Signs
Temp Pulse Resp BP Pulse Ox
97.7 F 86 16 133/86 92
04/01/24 04:22 04/01/24 09:21 04/01/24 04:22 04/01/24 09:21 04/01/24 04:24
Physical Exam
Constitutional: No Acute Distress
Cardiovascular: Regular Rate and S1/S2; Negative Murmur or Rub
Pulmonary: Clear and Symmetric; Negative Wheezes or Rales
Gastrointestinal: Soft, Non Tender, Non Distended and Normal Bowel Sounds
Skin: Warm and Dry; Negative Rash or Jaundice
Objective Data
Lab Data
Lab Results
04/01/24 04:57
04/01/24 04:57
PT 24.1 Sec (11.4-14.6) H 03/28/24 21:54
INR 2.17 03/28/24 21:54
Estimated Creat Clear 46 ml/min 04/01/24 04:57
Total Bilirubin 1.7 mg/dl (0.2-1.3) H 03/28/24 21:54
AST 132 U/L (14-36) H 03/28/24 21:54
ALT 35 U/L (0-35) 03/28/24 21:54
Alkaline Phosphatase 51 U/L (38-126) 03/28/24 21:54
Most recent labs reviewed.
Micro Results:
03/29/24 04:25 MRSA Screen - Final
Nose No Methicillin Resistant Staphylococcus aureus isolated.
Care Review
Plan reviewed with: Physician (Dr Guo - no ability to reposition drain)
--- NOTE | 2024-04-01 10:29 | W.CON.GYNONC ---
Chief Complaint
-
N/A
History of Present Illness
This is an 78yo WF menopausal since age 48 who does not usually see rapid outsole stitcher with a history of a TOA vs diverticular abscess starting back in November , she was sent to the ED after an elevated white count on outpatient labs. Patient was admitted in
November for a similar abscess. At that time, it was thought to be a TOA. It was drained by IR and grew Citrobacter, Klebsiella and S. viridans grew from the abscess. Patient completed 2 weeks of Augmentin on discharge. There were no malignant cells on
cytology from the abscess.
Ground Mixer evaluation by Dr Eldridge done at that time, She also had a thickened endometrium on pelvic US. D&C was attempted, but only EMB was completed secondary to cervical stenosis. Pathology showed fragments of endocervical polyp and fragments of mucus,
endocervical glands and squamous epithelium with atrophy but no endometrial tissue. Note she has no post menopausal bleeding, and no discharge.
Patient followed up with [facility] and a consult with colorectal. Surgical removal had been considered, I had been contacted by Dr. Chaparro
Patient was recently discharged on the where she was admitted for peridiverticular abscess for which she had a indwelling drain at this time. She was discharged on ciprofloxacin, Diflucan and Flagyl. She will get has completed course of the
antibiotics at this time. Patient was currently doing well up until today. About 2 days ago she has some swelling in her left leg. She had slight increasing the Lasix dose with improvement in that. Today the patient was noted to be having a lot
of dry heaves. The son reported that she was tachycardic to the [facility]. She was unable to tolerate any p.o. today. There was no vomiting. She had no diarrhea. She did not complain of any abdominal pain fevers or chills. She
had ongoing weakness and fatigue without much change. Reported that due to her inability to take p.o. and a sense of dehydration and the patient was connected to IV fluids and giving 1 L of normal saline very rapidly. She immediately started to
have wheezing and nonproductive cough. They checked the pulse ox and it was down to 88% on room air. EMS was called and patient was transferred to the emergency department. She continued to complain of difficulty breathing en route to the ED.
She denied having chest pain. She was unaware of the palpitations.
She had a colonoscopy a year ago at [facility] which was normal.
She does report intermittent diarrhea over the last month however this is attributed to antibiotics.
She did have a bowel movement yesterday. She states that her pain is improved since arriving at the hospital and specially after the aspiration yesterday
PMHx: Hypertension, HFpEF, Paroxysmal Atrial Fibrillation, CKD IIIa, Glaucoma
PSHx: cholecystectomy
POBHx: x2
FamHx: Mother with breast cancer
SHx: former smoker, quit. She drinks alcohol rarely socially. She denies any drug or marijuana use. She is with the partner for the last 35 years
Meds:
All: NKDA
Medical History
Allergies
Allergies reflect when allergies were last updated in [employer].
amlodipine Adverse Reaction (Verified 03/28/24 21:51)
stomach cramps
lisinopril Adverse Reaction (Verified 03/28/24 21:51)
abdominal cramping
unknown drug Allergy (Uncoded 03/28/24 21:51)
Unknown
Physical Exam
Vital Signs / I&O
Vitals
Temp Pulse Resp BP Pulse Ox
97.7 F 86 16 133/86 92
04/01/24 04:22 04/01/24 09:21 04/01/24 04:22 04/01/24 09:21 04/01/24 04:24
I&O
03/30/24 03/31/24 04/01/24 04/02/24
06:59 06:59 06:59 06:59
Intake Total 390 / 390 330 / 330 1060 / 1060
Output Total 625 / 625 1450 / 1450 1250 / 1250
Balance -235 / -235 -1120 / -1120 -190 / -190
Physical Exam
General: No Apparent Distress and Other (appears weak)
HEENT: Normocephalic
Respiratory: Clear and Non Labored Respirations
Cardiac: S1/S2 and Regular Rhythm
GI: Soft, Non Tender and Normal Bowel Sounds
Neuro: Awake, Alert and Oriented
Hematologic/Lymphatic: No Lymphadenopathy
Psych: Calm and Depressed
Results
-
04/01/24 04:57
04/01/24 04:57
Exams: CT Abd/pel W Iv And Oral Contr
EXAMINATION: CT of the abdomen and pelvis with oral and intravenous contrast
INDICATION: History of abscess and drainage. Follow-up.
COMPARISON: CT of the abdomen and pelvis from March 11, 2024. Images from CT drainage procedure from March 11, 2024. Abdominal radiograph from March 13, 2024.
FINDINGS: CT of the abdomen and pelvis is performed with oral and intravenous contrast.
Moderate bilateral pleural effusions, new since examination of March 10, 2024. Compressive atelectasis within the posterior lower lobes of both lungs. There is also band-shaped atelectasis within the right middle lobe.
No significant pericardial effusion is identified. Dense coronary artery calcifications and/or stents are present. Please correlate with symptoms of and risk factors for coronary artery disease, with further workup as clinically appropriate.
Left transgluteal percutaneous drainage catheter has pigtail uncoiled, and pigtail is located in the left piriformis muscle, and not within posterior pelvic collection.
Within the pelvis, there is a small extraluminal air and soft tissue density collection, significantly decreased in size compared to CT of March 10, 2024, and compatible with interval decrease in left pelvic abscess. Residual collection measures
approximately 3.2 cm transverse by 2.5 cm AP by 3.0 cm craniocaudal. This residual collection is located off the left posterior margin of the sigmoid colon, and there is moderate wall thickening of the sigmoid colon. This collection is also located
in the region of the left ovary and difficult to separate from the left ovary. This is felt to most likely represent a peridiverticular abscess, although tubo-ovarian abscess to exclude. This may represent a peridiverticular abscess that has
extended to involve the left ovary and adnexa.
There is a small amount of presacral edema.
No free intraperitoneal air is identified.
The appendix appears normal. There is no evidence for bowel obstruction.
The patient is status post cholecystectomy with no evidence for biliary ductal dilation.
No focal abnormality of the liver is identified.
Spleen has maximum dimension of 11.3 cm, within normal range of less than 13 cm. There is a 2 cm accessory spleen off the inferior margin of the spleen.
Both adrenal glands appear normal. The pancreas appears within normal limits.
There is a moderate-sized diverticulum arising from the second portion of the duodenum, and extending toward the pancreas.
Bilateral renal cysts are present. Mild scarring of the posterior upper pole of the left kidney. The visualized pelvicalyceal systems and ureters appear within normal limits. There is a Gaona catheter present within a collapsed bladder. No focal
abnormality of the bladder.
Moderate to severe vascular calcification with no aortic aneurysm.
There are no significantly enlarged abdominal or pelvic lymph nodes identified.
Moderate subcutaneous edema is present diffusely.
Mild dextroconvex scoliosis, centered at L2-3. Changes of degenerative disc disease which are greatest at L4-5
No significant degenerative change of the hip joints. Mild degenerative change of the symphysis pubis. Mild to moderate degenerative change of the anterior and inferior right sacroiliac joint. The left sacroiliac joint appears partially fused
anteriorly and inferiorly.
IMPRESSION: Left transgluteal percutaneous drainage catheter has been uncoiled pigtail within the region of the left piriformis muscle, no longer within the pelvic collection.
Decreased size of mixed air and soft tissue density collection within the pelvis, compatible with improvement in abscess/phlegmon.
No evidence of free intraperitoneal air.
The appendix appears normal.
Moderate-sized diverticulum arising in the second portion of the duodenum and extending adjacent to the head of the pancreas.
Moderate diffuse subcutaneous edema.
Electronically signed by Trino Jimenez MD, 03/31/2024 4:22 PM
[employer] Dose Report: Up-to-date CT equipment and radiation dose reduction techniques were employed. CTDIvol: 10.0 mGy. DLP: 1018 mGy-cm.
Dictated By: Trino Jimenez MD
Dictated Date & Time: 03/31/24 1607
Signed/Co-Signer By: Trino Jimenez MD /
Signed/Co-Signer Date & Time: 03/31/24 1622 /
Transcribed by: Trino Jimenez
Impression / Plan
-
1. Paroxysmal atrial fibrillation with rapid ventricular rate
-Continue Eliquis for now
-On Cardizem drip @ 5mg/hr - cardio managing , on Lopressor 25mg/bid.
2. Peridiverticular/tubo-ovarian abscess
History of recurrent sigmoid diverticulitis
improved leukocytosis
-Patient is planned to undergo surgery for persistent tubo-ovarian/peridiverticular abscess by Dr. Griffith and me on 04/15
-GRAHAM drain showing Pseudomonas aeruginosa/ESBL Klebsiella/Saccharomyces service
3. Acute on Chronic sysotlic HF
-Maintain on IV Lasix for now, cr stable
4. Recurrent urinary retention
gaona catheter
I suspect deconditioning
5. Bilateral pleural effusion
suspect maybe due to CHF, repeat CT thorax with IV contrast, PE protocol, and reassess pleural effusin, if present still, please consult IR for drainage
to improve rosalia-operative complication risk
May need to hold eliquis and do this on Thursday
6. Diarrhea
- reported loose stool in the AM
--- NOTE | 2024-04-01 11:06 | CM ---
Reviewed chart. Met with Mrs. Huggins and her son to review discharge plans. She states she is feeling okay. Son states she may need a thoracentesis. Prior to admission she was a [facility] for nine days of skilled rehab. Prior to her SNF
stay she was residing with her significant other in a bi-level home with six steps to enter. When she was at home she was independent with ambulation in the home and used a single point cane for community ambulation. She has had [facility] in
the past. Will continue to follow her functional status to see if she will have any skilled care needs. Medical work-up in progress. The discharge plan is SNF/Rehab. when medically stable.
[2024-04-01] MEDS: CARDIZEM 30 MG PO (11:11)
--- NOTE | 2024-04-01 13:04 | W.PN.CD ---
Today's Communication / Plan
-
Increase metoprolol => move to succinate prior to or at discharge, increase dose as needed for HR control
Increase Lasix to BID
Add MRA/SGLT2-I
Follow BMP as meds adjusted and Lasix increased
Add back VEENA-i or move to ARNI later (once done diuresing aggressively)
Impression / Plan
-
BACKGROUND: 78F with hypertension, prior HFpEF, paroxysmal atrial fibrillation (on apixaban) and pelvic abscess with drain in place who presented to the emergency department with shortness of breath
Health Director: Dr. Blas
Paroxysmal atrial fibrillation, presented in RVR
- Rate: OK on metoprolol low dose and low dose dilt IV => move more metoprolol (Low EF) => move to succinate later
- [id number] is 5 (Age, gender, HTN and HF)
- No plans for cardioversion at this time
HFpEF => New HFrEF
- Likely related to infection and fast AFib
- Move metoprolol to succinate prior to or at discharge
- Anticipate LVEF will recover
- For now hold VEENA-I but later go to ARNI or back to enalapril
- Increase Lasix to BID (CT with lots of edema)
- Added MRA at low dose for now (start 04/02/2024)
- Added SGLT2-I (start 04/02/2024)
HTN
- Hydralazine stopped (had been held)
-Hold enalapril and hydralazine
Left tubo-ovarian abscess, drain in place, she has leukocytosis but no pain
Former smoker, continued cessation recommended
Subjective:
Feels OK
DATA:
Echo this admit :
Moderately reduced left ventricular systolic function. Normal right
ventricular size and reduced systolic function of the apex
LV ejection fraction is 30-35% by visual estimate.
Hypokinesis of the mid to apical arredondo with the basal arredondo best preserved.
Moderate pulmonary hypertension. Bilateral pleural effusion present.
Compared to the prior study on 12/09/2023, the systolic dysfunction is new.
Pulmonary hypertension and pleural effusions are also new.
Lexiscan nuclear stress test, 01/29/2024:
Negative ECG for ischemia. Normal perfusion imaging. EF 67%.
Low risk study but moderate risk due to inability to exercise.
Transthoracic echocardiogram, 12/09/2023:
Normal left ventricular size with mild concentric remodeling and normal
systolic function. No regional wall motion abnormalities are seen. LV ejection
fraction is 60-65% by Genao's method of discs. Normal diastolic function.
Normal right ventricular size and function.
Normal atria.
Aortic sclerosis without stenosis.
No other significant valve abnormalities.
No evidence of pulmonary hypertension.
Physical Exam
Vital Signs/Labs
Vital Signs
Temp Pulse Resp BP Pulse Ox
98.3 F 74 18 100/73 93
04/01/24 11:16 04/01/24 11:11 04/01/24 11:16 04/01/24 11:11 04/01/24 11:16
03/31/24 04/01/24 04/02/24
06:59 06:59 06:59
Actual Weight 67.4 kg 67.7 kg
04/01/24 04:57
04/01/24 04:57
PT 24.1 Sec (11.4-14.6) H 03/28/24 21:54
INR 2.17 03/28/24 21:54
Magnesium 1.7 mg/dl (1.6-2.3) 03/30/24 05:16
03/28/24
21:54
[id number] Pept > 39958
Physical Exam
Constitutional: No acute distress
EENT: Anicteric
Cardiovascular: Rhythm/rate is irregular and S1S2 is normal
Respiratory: Respiratory effort normal and Lungs clear to auscul.
GI: Soft and Distention absent
Neuro/Psych: AO x 3
Data Reviewed
-
Date of Service: April 01, 2024
[2024-04-01] MEDS: MYCAMINE 105 MG IV (15:27)
--- NOTE | 2024-04-01 16:53 | PTCARENOTE ---
pt continues to be afib on the monitor, hr in the 80s-90s, vss. pt offers no complaints at this time. PICC in place per order. Trish d/c'd per order, see documentation. son at bedside visiting. both educated on plan of care and pt verbalized
understanding. call parrish within reach.
[2024-04-01] MEDS: XALATAN OPHTHALMIC SOLUTION 1 DROP BOTH EYES (21:01)
[2024-04-01] MEDS: STERILE WATER FOR INJECTION IV (21:12)
[2024-04-01] MEDS: MERREM IV (21:12)
[2024-04-01] MEDS: XANAX PO (23:43)
[2024-04-02] VITALS (8 sets, daily range): BP systolic 99–138; BP diastolic 64–95; PULSE 76; BMI 25.5
[2024-04-02] MEDS: XANAX 0.25 MG PO ×2 (01:07→23:15)
[2024-04-02] MEDS: LOPRESSOR 25 MG PO ×4 (09:23→23:14)
[2024-04-02] MEDS: MERREM 500 MG IV ×3 (09:23→23:15)
[2024-04-02] MEDS: LASIX 40 MG IV (09:24)
[2024-04-02] MEDS: ALDACTONE 12.5 MG PO (09:24)
[2024-04-02] MEDS: PROZAC 20 MG PO (09:24)
[2024-04-02] MEDS: ELIQUIS 5 MG PO ×2 (09:24→20:08)
[2024-04-02] MEDS: FARXIGA 10 MG PO (09:24)
[2024-04-02] MEDS: TIMOPTIC 0.5% OPHTHALMIC SOLUTION 1 DROP BOTH EYES (09:25)
[2024-04-02] MEDS: STERILE WATER FOR INJECTION 10 ML IV ×3 (09:25→23:15)
--- NOTE | 2024-04-02 09:54 | W.PN.CD ---
Today's Communication / Plan
-
Switch to metoprolol succinate starting tomorrow morning
Start low-dose Entresto pending a.m. labs
Continue twice daily diuresis pending a.m. labs
Impression / Plan
-
BACKGROUND: 78F with hypertension, prior HFpEF, paroxysmal atrial fibrillation (on apixaban) and pelvic abscess with drain in place who presented to the emergency department with shortness of breath
Extension Supervisor: Dr. Blas
Paroxysmal atrial fibrillation, presented in RVR
- Rate: OK on metoprolol; switch to succinate starting tomorrow
- [id number] is 5 (Age, gender, HTN and HF)
- No plans for cardioversion at this time
-Continue apixaban 5 mg twice daily
HFpEF => New HFrEF
- Likely related to infection and fast AFib; anticipate LVEF will recover
- Switch to metoprolol succinate
- Start low-dose Entresto
- Continue twice daily Lasix pending a.m. labs (CT 03/31 with lots of edema)
- Added MRA at low dose (start 04/02/2024); uptitrate as tolerated
- Added SGLT2-I (start 04/02/2024); uptitrate as tolerated
HTN
-Hold enalapril and hydralazine in order to get GDMT on board
Left tubo-ovarian abscess, drain in place, she has leukocytosis but no pain
Former smoker, continued cessation recommended
Subjective:
No complaints this morning. Telemetry reveals 4 beats NSVT. Heart rate in the 70s to 80s.
DATA:
Echo this admit :
Moderately reduced left ventricular systolic function. Normal right
ventricular size and reduced systolic function of the apex
LV ejection fraction is 30-35% by visual estimate.
Hypokinesis of the mid to apical arredondo with the basal arredondo best preserved.
Moderate pulmonary hypertension. Bilateral pleural effusion present.
Compared to the prior study on 12/09/2023, the systolic dysfunction is new.
Pulmonary hypertension and pleural effusions are also new.
Lexiscan nuclear stress test, 01/29/2024:
Negative ECG for ischemia. Normal perfusion imaging. EF 67%.
Low risk study but moderate risk due to inability to exercise.
Transthoracic echocardiogram, 12/09/2023:
Normal left ventricular size with mild concentric remodeling and normal
systolic function. No regional wall motion abnormalities are seen. LV ejection
fraction is 60-65% by Genao's method of discs. Normal diastolic function.
Normal right ventricular size and function.
Normal atria.
Aortic sclerosis without stenosis.
No other significant valve abnormalities.
No evidence of pulmonary hypertension.
Physical Exam
Vital Signs/Labs
Vital Signs
Temp Pulse Resp BP Pulse Ox
98.1 F 101 18 127/95 95
04/02/24 08:00 04/02/24 08:00 04/02/24 04:30 04/02/24 04:30 04/02/24 08:00
04/01/24 04/02/24 04/03/24
06:59 06:59 05:59
Actual Weight 67.7 kg 65.2 kg
04/01/24 04:57
PT 24.1 Sec (11.4-14.6) H 03/28/24 21:54
INR 2.17 03/28/24 21:54
Magnesium 1.7 mg/dl (1.6-2.3) 03/30/24 05:16
03/28/24
21:54
[id number]-[id number] Pept > 33954
Physical Exam
Constitutional: No acute distress and Comfortable
Cardiovascular: Rhythm/rate is irregular, Pedal edema present and Murmur/rub/gallop absent
Respiratory: Respiratory effort normal and Other (Decreased breath sounds at the right base)
GI: Soft
Data Reviewed
-
Date of Service: April 02, 2024
Medical Decision Making: Reviewed Test Results, Independent Historian Assessment, Test Interpretation and Review of Case with other Provider
EKG: Tracing Personally Visualized and interpreted
Echo: Report Reviewed by me
Labs: Labs Reviewed by me
[2024-04-02 10:09] LABS: Blood Urea Nitrogen 13 mg/dl (7-17); Carbon Dioxide 33 mmol/L (22-30); Chloride 90 mmol/L (98-107); Estimated Creatinine Clearance 53 ml/min; Glucose 120 mg/dl (70-99); Magnesium 1.4 mg/dl (1.6-2.3); Potassium 3.3 mmol/L (3.5-5.1); Sodium 132 mmol/L (135-145); eGFR > 60.00
[2024-04-02] MEDS: KCL 40 MEQ PO (11:51)
[2024-04-02] MEDS: MAGNESIUM SULFATE 100 IV (11:51)
[2024-04-02] MEDS: ENTRESTO 24 MG/26 MG 1 TAB PO ×2 (11:51→20:08)
--- NOTE | 2024-04-02 12:44 | PTCARENOTE ---
assessment / VS stable as documented. Pt remains mildly RIVAS and weak. Declining to attempt to get OOB at this time. Borjas remains due to retention issues.
--- NOTE | 2024-04-02 14:06 | W.PN.HOSP.TC ---
Today's Communication/Plan
-
pending thoracentesis
continue abx per ID
PT eval
Assessment / Plan
Assessment / Plan
1. Paroxysmal atrial fibrillation with rapid ventricular rate
-Patient have been on regimen of beta-matt/Eliquis at home
-Patient came in for RVR - was asymptomatic
-Continue Eliquis for now
-Currently patient on regimen of Lopressor and heart rate controlled with it
2. Peridiverticular/tubo-ovarian abscess
History of recurrent sigmoid diverticulitis
Recurrence leukocytosis
-Patient is planned to undergo surgery for persistent tubo-ovarian/peridiverticular abscess by Dr. Griffith and Demario
-GRAHAM drain showing Pseudomonas aeruginosa/ESBL Klebsiella/Saccharomyces service
-Patient was discharged on regimen of ciprofloxacin 500 twice daily/fluconazole 400 daily/Flagyl 500 Q8 on 03/20
-Patient planned to undergo surgery on 04/15
-In light of recurrence of leukocytosis, ID consulted for further help. at admission regimen changed to Merrem/fluconazole
-CT a/p yesterday showing displaced GRAHAM drain although abscess size decreased, repeat GRAHAM drain not possible per IRAD - CRS/onc model maker plaster notified.
3. Acute on Chronic sysotlic HF
Acute hypoxic resp insufficiency
-TTE showing EF 30-35%, hypokinesis of mid to apical arredondo. mod pulm HTN
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
-GDMT to be added once BP improved
-Chest x-ray admission showing questionable pulmonary congestion
-proBNP greater than 27,000 at admission
-Patient have minimal hypoxia as well
-Maintain on IV Lasix for now, cr stable
4. Recurrent urinary retention
-Patient had problem with urinary retention last admission
-continues to have recurrent urinary retention, will order gaona catheter
-reason likely with bladder laxity from amb dysfunction/repeated admission and altered sensation with pelvic pathology
5. Elevated troponin
-From nonischemic myocardial injury likely
-Continue monitor
6. Bilateral pleural effusion
-Requested IRAD to do an elective thoracentesis again today
7. Diarrhea
-reported loose stool
-possible abx use related, if persists and with long abx course will discuss with ID for need of Cdiff check
Eliquis
Full code
Patient daughter/ at bedside and concerned about patient's speech changes and overall decline. Patient has been clinically better and discussed.
Anticipated Discharge: 24 - 48 hours
Subjective/Interval History
-
Date of Service: April 02, 2024
Resting comfortably in bed
Afebrile overnight
No issues reported
Objective Data
-
Labs:
Laboratory Results
04/02/24
09:21
Sodium 132 L
Potassium 3.3 L
Chloride 90 L
Carbon Dioxide 33 H
BUN 13
Creatinine 0.7
Glucose 120 H
Calcium 9.0
Vital Signs:
Vital Signs
Temp Pulse Resp BP Pulse Ox
93.3 F L 74 16 107/71 94
04/02/24 11:08 04/02/24 12:00 04/02/24 11:08 04/02/24 11:08 04/02/24 12:43
I&O
04/01/24 04/02/24 04/03/24
06:59 06:59 05:59
Intake Total 1060 / 1060 480 / 480
Output Total 1250 / 1250 2300 / 2300
Balance -190 / -190 -1820 / -1820
Review of Systems
-
Respiratory: Reports No Symptoms
Cardiac: Reports No Symptoms
Abdomen/GI: Reports No Symptoms
Physical Exam
-
General: No Apparent Distress and Comfortable
HEENT: Negative Oxygen
Respiratory: Clear to Auscultation
Cardiac: S1/S2 and Irregular Rhythm; Negative Murmur or Rub
GI: Soft, Nontender and Nondistended
Musculoskeletal: No Edema
Neuro: Awake, Alert, Oriented, No Motor Deficits and Nonfocal/Grossly Intact
Psych: Calm
--- NOTE | 2024-04-02 15:16 | PTCARENOTE ---
Pt c/o of being 'SOB' while sitting in chair. Pt does not appear dyspneic and RRR, Lungs sounds remian decrease w crackles in bases - no change from AM. POX 94% on RA. Places 2lnc for comfort with relief.
[2024-04-02] MEDS: MYCAMINE 105 MG IV (16:18)
[2024-04-02] MEDS: XALATAN OPHTHALMIC SOLUTION 1 DROP BOTH EYES (23:15)
[2024-04-02] MEDS: FLUSH (NSS) 3 FLUSH IV (23:16)
[2024-04-03] VITALS (7 sets, daily range): BP systolic 101–138; BP diastolic 67–103; BMI 24.9
--- NOTE | 2024-04-03 03:40 | PTCARENOTE ---
Pt. oriented x 3, A-fib 80's- low 100's on the monitor. Complains of intermittent SOB at rest, orthopnea noted. Pulse ox on RA 96%, 2L O2 placed which greatly helps. Lungs diminished. Incontinent of one loose BM.
[2024-04-03 05:09] LABS: Blood Urea Nitrogen 12 mg/dl (7-17); Calcium 8.7 mg/dl (8.4-10.2); Carbon Dioxide 33 mmol/L (22-30); Chloride 90 mmol/L (98-107); Estimated Creatinine Clearance 46 ml/min; Glucose 93 mg/dl (70-99); Magnesium 1.7 mg/dl (1.6-2.3); Potassium 3.5 mmol/L (3.5-5.1); Sodium 131 mmol/L (135-145); eGFR > 60.00
[2024-04-03] MEDS: FARXIGA 10 MG PO (09:03)
[2024-04-03] MEDS: PROZAC 20 MG PO (09:03)
[2024-04-03] MEDS: ENTRESTO 24 MG/26 MG 1 TAB PO ×2 (09:03→19:35)
[2024-04-03] MEDS: TIMOPTIC 0.5% OPHTHALMIC SOLUTION 1 DROP BOTH EYES (09:03)
[2024-04-03] MEDS: ELIQUIS 5 MG PO ×2 (09:03→19:36)
[2024-04-03] MEDS: LASIX 40 MG IV (09:03)
[2024-04-03] MEDS: TOPROL XL 100 MG PO (09:03)
[2024-04-03] MEDS: ALDACTONE 12.5 MG PO (09:03)
[2024-04-03] MEDS: MERREM 500 MG IV ×3 (09:04→23:14)
[2024-04-03] MEDS: STERILE WATER FOR INJECTION 10 ML IV ×3 (09:04→23:14)
--- NOTE | 2024-04-03 11:06 | W.PN.CD ---
Today's Communication / Plan
-
Once daily IV diuresis. Can likely transition to p.o. tomorrow.
Increase spironolactone.
Continue metoprolol, Entresto, and dapagliflozin.
Impression / Plan
-
BACKGROUND: 78F with hypertension, prior HFpEF, paroxysmal atrial fibrillation (on apixaban) and pelvic abscess with drain in place who presented to the emergency department with shortness of breath.
Plaster Machine Tender: Dr. Blas
Paroxysmal atrial fibrillation, presented in RVR
- Rate: OK on metoprolol succinate 100 mg daily. Hopefully this will improve with treatment of infection.
- [id number] is 5 (Age, gender, HTN and HF)
- If she remains in atrial fibrillation prior to discharge, will consider cardioversion
- Continue apixaban 5 mg twice daily
HFpEF => New HFrEF
- Likely related to infection and fast AFib; anticipate LVEF will recover
- Continue metoprolol succinate and low-dose Entresto (start 04/03), uptitrate as tolerated
- Appears close to euvolemia. Switch IV Lasix to daily. Can likely transition to p.o. tomorrow
- Increase spironolactone to 25 mg daily
- Continue SGLT2-I
HTN
-Hold enalapril and hydralazine in order to get GDMT on board
Left tubo-ovarian abscess, drain in place, she has leukocytosis but no pain
Former smoker, continued cessation recommended
Subjective:
Feels slightly short of breath this morning. Supplemental oxygen is helping. Telemetry reveals atrial fibrillation with heart rate in the 80s to 90s.
DATA:
Echo this admit :
Moderately reduced left ventricular systolic function. Normal right
ventricular size and reduced systolic function of the apex
LV ejection fraction is 30-35% by visual estimate.
Hypokinesis of the mid to apical arredondo with the basal arredondo best preserved.
Moderate pulmonary hypertension. Bilateral pleural effusion present.
Compared to the prior study on 12/09/2023, the systolic dysfunction is new.
Pulmonary hypertension and pleural effusions are also new.
Lexiscan nuclear stress test, 01/29/2024:
Negative ECG for ischemia. Normal perfusion imaging. EF 67%.
Low risk study but moderate risk due to inability to exercise.
Transthoracic echocardiogram, 12/09/2023:
Normal left ventricular size with mild concentric remodeling and normal
systolic function. No regional wall motion abnormalities are seen. LV ejection
fraction is 60-65% by Genao's method of discs. Normal diastolic function.
Normal right ventricular size and function.
Normal atria.
Aortic sclerosis without stenosis.
No other significant valve abnormalities.
No evidence of pulmonary hypertension.
Physical Exam
Vital Signs/Labs
Vital Signs
Temp Pulse Resp BP Pulse Ox
97.5 F 84 20 138/101 93
04/03/24 06:49 04/03/24 10:00 04/03/24 06:49 04/03/24 06:53 04/03/24 07:57
04/02/24 04/03/24 04/04/24
07:59 06:59 06:59
Actual Weight
04/01/24 04:57
04/03/24 04:18
PT 24.1 Sec (11.4-14.6) H 03/28/24 21:54
INR 2.17 03/28/24 21:54
Magnesium 1.7 mg/dl (1.6-2.3) 04/03/24 04:18
03/28/24
21:54
Jgl-V-Zshgzpckote Pept > [id number]
Physical Exam
Constitutional: No acute distress and Comfortable
Cardiovascular: Pedal edema is absent, JVD pressure is normal, Rhythm/rate is irregular, S1S2 is normal and Murmur/rub/gallop absent
Respiratory: Respiratory effort normal and Crackles Present (Faint crackles at bilateral bases)
Data Reviewed
-
Date of Service: April 03, 2024
Medical Decision Making: Reviewed Test Results, Independent Historian Assessment, Test Interpretation and Review of Case with other Provider
EKG: Tracing Personally Visualized and interpreted
Echo: Report Reviewed by me
X-Ray/CT/US/MRI/NUC/PET: Image Personally Visualized and interpreted and Discussed with Physician
Labs: Labs Reviewed by me
[2024-04-03] MEDS: MYCAMINE 105 MG IV (11:39)
--- NOTE | 2024-04-03 15:32 | W.PN.HOSP.TC ---
Today's Communication/Plan
-
see note
Assessment / Plan
Assessment / Plan
1. Paroxysmal atrial fibrillation with rapid ventricular rate
-Patient have been on regimen of beta-matt/Eliquis at home
-Patient came in for RVR - was asymptomatic
-Continue Eliquis for now
-Currently patient on regimen of Lopressor and heart rate controlled with it
2. Peridiverticular/tubo-ovarian abscess
History of recurrent sigmoid diverticulitis
Recurrence leukocytosis
-Patient is planned to undergo surgery for persistent tubo-ovarian/peridiverticular abscess by Dr. Griffith and Demario
-GRAHAM drain showing Pseudomonas aeruginosa/ESBL Klebsiella/Saccharomyces service
-Patient was discharged on regimen of ciprofloxacin 500 twice daily/fluconazole 400 daily/Flagyl 500 Q8 on 03/20
-Patient planned to undergo surgery on 04/15
-at admission regimen changed to Merrem/fluconazole. will need arrangement before discharge.
-CT a/p this admit showing displaced GRAHAM drain although abscess size decreased, repeat GRAHAM drain not possible per IRAD - CRS/onc ob gyn physician assistant notified.
3. Acute on Chronic sysotlic HF
Acute hypoxic resp insufficiency
-TTE showing EF 30-35%, hypokinesis of mid to apical arredondo. mod pulm HTN
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
-Currently on Entresto/Aldactone as part of GDMT
-Chest x-ray admission showing questionable pulmonary congestion
-proBNP greater than 27,000 at admission
-Patient have minimal hypoxia as well
-Lasix has been transitioned to oral
4. Recurrent urinary retention
-Patient had problem with urinary retention last admission
-continues to have recurrent urinary retention, will order gaona catheter
-reason likely with bladder laxity from amb dysfunction/repeated admission and altered sensation with pelvic pathology
5. Elevated troponin
-From nonischemic myocardial injury likely
-Continue monitor
6. Bilateral pleural effusion
-Requested IRAD to do an elective thoracentesis, pending
7. Diarrhea
-reported loose stool
-possible abx use related, if persists and with long abx course will discuss with ID for need of Cdiff check
Eliquis
Full code
04/02 Patient daughter/ at bedside and concerned about patient's speech changes and overall decline. Patient has been clinically better and discussed.
Anticipated Discharge: 24 - 48 hours
Subjective/Interval History
-
Date of Service: April 03, 2024
Resting comfortably in bed
Having some dyspnea, on oxygen nasal cannula
Heart rate control
Afebrile
Objective Data
-
Labs:
Laboratory Results
04/03/24
04:18
Sodium 131 L
Potassium 3.5
Chloride 90 L
Carbon Dioxide 33 H
BUN 12
Creatinine 0.8
Glucose 93
Calcium 8.7
Vital Signs:
Vital Signs
Temp Pulse Resp BP Pulse Ox
97.6 F 84 20 138/101 96
04/03/24 15:11 04/03/24 10:00 04/03/24 15:11 04/03/24 06:53 04/03/24 15:11
I&O
04/02/24 04/03/24 04/04/24
07:59 06:59 06:59
Intake Total
Output Total
Balance
Review of Systems
-
Respiratory: Reports No Symptoms
Cardiac: Reports No Symptoms
Abdomen/GI: Reports No Symptoms
Physical Exam
-
General: No Apparent Distress and Comfortable
HEENT: Oxygen
Respiratory: Clear to Auscultation
Cardiac: S1/S2 and Irregular Rhythm; Negative Murmur or Rub
GI: Soft, Nontender and Nondistended
Musculoskeletal: No Edema
Neuro: Awake, Alert, Oriented, No Motor Deficits and Nonfocal/Grossly Intact
Psych: Calm
--- NOTE | 2024-04-03 16:14 | PTCARENOTE ---
pt continues to be afib on the monitor, hr in the 90s, vss. pt offers no complaints at this time. gaona removed and pt tolerated well.family at bedside visiting throughout the day. family and pt educated on plan of care for the day and both
verbalized understanding. call parrish within reach.
[2024-04-03] MEDS: XANAX 0.25 MG PO (23:14)
[2024-04-03] MEDS: XALATAN OPHTHALMIC SOLUTION 1 DROP BOTH EYES (23:14)
--- NOTE | 2024-04-03 23:33 | PTCARENOTE ---
Pt rec'd at change of shift awake,alert, daughter at bedside. Pt has voided twice since 191 10 cc first attempt on bedpan, then 75cc. pt currently was bladder scanned for 325cc. Right dual lumen picc flushed and patent. remains afib on telemetry
with rates 80-100. call parrish within reach.
[2024-04-04] VITALS (14 sets, daily range): BP systolic 67–142; BP diastolic 54–97; PULSE 95; O2SAT 100; BMI 24.8
--- NOTE | 2024-04-04 04:35 | PTCARENOTE ---
Order obtained to have IVF discontinued. am Cr improved from 2.2 to 1.9.
[2024-04-04 06:07] LABS: Blood Urea Nitrogen 14 mg/dl (7-17); Calcium 8.8 mg/dl (8.4-10.2); Carbon Dioxide 34 mmol/L (22-30); Chloride 91 mmol/L (98-107); Estimated Creatinine Clearance 46 ml/min; Glucose 98 mg/dl (70-99); Magnesium 1.6 mg/dl (1.6-2.3); Potassium 3.2 mmol/L (3.5-5.1); Sodium 133 mmol/L (135-145); eGFR > 60.00
--- NOTE | 2024-04-04 06:36 | PTCARENOTE ---
Pt assisted oob this morning after performing bladder scan. Pt had 453 cc in bladder. Pt voided only 50 cc after sitting on bsc for 10 mins. Post bladder scan showed 423 cc in bladder. Afib with rates up to 140 when getting on standing scale and
back to bed. rate improved to 90 with rest.
--- NOTE | 2024-04-04 07:53 | PTCARENOTE ---
Pt transferred to IR for Thoracentesis @0750
--- NOTE | 2024-04-04 08:11 | W.PN.UPDATE ---
Update Note
Progress Note Update
DX: Pleural effusions
B/L chest US performed at bedside. Very small effusion on the left. Therefore right sided thora performed. 60cc of clear yellow fluid removed and fluid sent to the lab
[2024-04-04 08:51] LABS: Body Fluid Glucose 109 mg/dl; Body Fluid Protein < 2.0 g/dl
[2024-04-04 09:06] LABS: Body Fluid Mononuclear 87.3 %; Body Fluid Polymorphonuclear 12.7 %; Body Fluid WBC 243 /CUMM
--- NOTE | 2024-04-04 09:12 | W.PN.ID1 ---
Date of Service
Date of Service: April 04, 2024
Today's Communication
- c/w micafungin through the planned procedure and 5 days after 04/20
- c/w with meropenem through the planned procedure and 5 days after 04/20
- stable for dc from ID perspective when outpatient IV antibiotics arranged
Assessment / Plan
Intraabdominal Abscess - likely diverticular
- drain removed
- 03/11 culture: few Pseudomonas, many ESBL K oxytoca, few S cerevisiae
- CT today with catheter outside of the pelvic collection - unfortunately cannot be repositioned safely
- c/w micafungin through the planned procedure and 5 days after 04/20
- c/w with meropenem through the planned procedure and 5 days after 04/20
- script given to case finishing machine adjuster
- picc
- she is currently planned for the OR electively on 04/15
- stable for dc from ID perspective when outpatient IV antibiotics arranged
Chief Complaint
-: Other (intraabdominal abscess)
Subjective / Review of Systems
remains afebrile
bp stable
had thoracentesis of right side this AM - fluid not consistent with infection
L side too small for thora
drain removed
Vital Signs / Physical Exam
Vital Signs
Vital Signs
Temp Pulse Resp BP Pulse Ox
97.5 F 85 16 98/70 95
04/04/24 07:52 04/04/24 08:22 04/04/24 08:22 04/04/24 08:22 04/04/24 07:52
Physical Exam
Constitutional: No Acute Distress and Chronically Ill
Cardiovascular: Regular Rate and S1/S2; Negative Murmur or Rub
Pulmonary: Clear and Symmetric; Negative Wheezes or Rales
Gastrointestinal: Soft, Non Tender, Non Distended and Normal Bowel Sounds
Skin: Warm and Dry; Negative Rash or Jaundice
Lines: PICC
Objective Data
Lab Data
Lab Results
04/01/24 04:57
04/04/24 05:25
PT 24.1 Sec (11.4-14.6) H 03/28/24 21:54
INR 2.17 03/28/24 21:54
Estimated Creat Clear 46 ml/min 04/04/24 05:25
Total Bilirubin 1.7 mg/dl (0.2-1.3) H 03/28/24 21:54
AST 132 U/L (14-36) H 03/28/24 21:54
ALT 35 U/L (0-35) 03/28/24 21:54
Alkaline Phosphatase 51 U/L (38-126) 03/28/24 21:54
Most recent labs reviewed.
Micro Results:
04/04/24 08:15 Body Fluid Culture - Pending
Pleural Fluid Gram Stain - Pending
03/29/24 04:25 MRSA Screen - Final
Nose No Methicillin Resistant Staphylococcus aureus isolated.
[2024-04-04] MEDS: ELIQUIS 5 MG PO ×2 (09:15→19:42)
[2024-04-04] MEDS: PROZAC 20 MG PO (09:15)
[2024-04-04] MEDS: ENTRESTO 24 MG/26 MG 1 TAB PO ×2 (09:16→23:08)
[2024-04-04] MEDS: TOPROL XL 100 MG PO (09:16)
[2024-04-04] MEDS: FARXIGA 10 MG PO (09:16)
[2024-04-04] MEDS: LASIX 40 MG IV (09:17)
[2024-04-04] MEDS: STERILE WATER FOR INJECTION 10 ML IV ×3 (09:18→23:37)
[2024-04-04] MEDS: MERREM 500 MG IV ×3 (09:18→23:37)
[2024-04-04] MEDS: TIMOPTIC 0.5% OPHTHALMIC SOLUTION 1 DROP BOTH EYES (09:19)
[2024-04-04] MEDS: MYCAMINE 105 MG IV (09:38)
[2024-04-04 09:43] LABS: Body Fluid Second Tech AMA
--- NOTE | 2024-04-04 09:53 | W.PN.HOSP.TC ---
Today's Communication/Plan
-
see bold
Assessment / Plan
Assessment / Plan
1. Paroxysmal atrial fibrillation with rapid ventricular rate
-Patient came in for RVR - was asymptomatic
-Was previously on metoprolol tartrate 12.5 mg twice a day/Eliquis
-Appreciate cardiology input, currently on metoprolol succinate 100 mg daily, HR 83-104
-Continue Eliquis for now
2. Peridiverticular/tubo-ovarian abscess
History of recurrent sigmoid diverticulitis
Recurrence leukocytosis
-Patient is planned to undergo surgery for persistent tubo-ovarian/peridiverticular abscess by Dr. Griffith and Demario
-GRAHAM drain showing Pseudomonas aeruginosa/ESBL Klebsiella/Saccharomyces service
-Patient was discharged on regimen of ciprofloxacin 500 twice daily/fluconazole 400 daily/Flagyl 500 Q8 on 03/20
-Patient planned to undergo surgery on 04/15
-At admission regimen changed to Merrem/fluconazole. Will need arrangement before discharge.
-CT a/p this admit showing displaced GRAHAM drain although abscess size decreased, repeat GRAHAM drain not possible per IRAD - CRS/onc lighting fixture installer notified
-All drains removed
3. Acute on Chronic sysotlic HF
Acute hypoxic resp insufficiency
-TTE showing EF 30-35%, hypokinesis of mid to apical arredondo. mod pulm HTN
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
-Currently on Entresto/Aldactone as part of GDMT
-Chest x-ray admission showing questionable pulmonary congestion
-proBNP greater than 27,000 at admission
-Patient have minimal hypoxia as well
-Appreciate cardiology input, currently on IV Lasix
4. Recurrent urinary retention
-Patient had problem with urinary retention last admission
-Reason likely with bladder laxity from amb dysfunction/repeated admission and altered sensation with pelvic pathology
-Continues to have recurrent urinary retention, Borjas placed, then removed 04/03
-Bladder scan protocol
5. Elevated troponin
-From nonischemic myocardial injury likely
-Continue monitor
6. Bilateral pleural effusion
-Status post right thoracentesis draining 60 cc of clear yellow fluid 04/04, follow-up on fluid analysis
7. Diarrhea
-reported loose stool
-possible abx use related, monitor and check C. difficile if needed
8. Hypokalemia
Replete, recheck a.m. labs
DVT prophylaxis�Eliquis
Full code
Dispo - SNF STR
Updated son at bedside 04/04
Total time spent to see the patient on the floor, examine the patient, review data and lab results, discuss treatment plan with patient, nursing staff around 51 minutes.
Physical Exam
General: No acute distress
HEENT: Normocephalic, Atraumatic, EOMI, MMM
Respiratory: Left basilar crackles
Cardiac: Normal S1/S2, irregularly irregular
GI: Soft, Nontender, Nondistended, Normal Bowel Sounds
Extremities: No Clubbing, Cyanosis, or Edema
Neuro: Nonfocal/Grossly Intact
Anticipated Discharge: 24 - 48 hours
Subjective/Interval History
-
Date of Service: April 04, 2024
Patient denies chest pain, shortness of breath, or palpitations. She did have urinary retention, but was able to void this morning. No nausea, no vomiting. No fever.
Objective Data
-
Labs:
Laboratory Results
04/04/24
05:25
Sodium 133 L
Potassium 3.2 L
Chloride 91 L
Carbon Dioxide 34 H
BUN 14
Creatinine 0.8
Glucose 98
Calcium 8.8
Vital Signs:
Vital Signs
Temp Pulse Resp BP Pulse Ox
97.5 F 92 16 142/96 95
04/04/24 07:52 04/04/24 09:16 04/04/24 08:22 04/04/24 09:16 04/04/24 07:52
I&O
04/03/24 04/04/24 04/05/24
06:59 06:59 06:59
Intake Total 50 / 50
Output Total 135 / 135
Balance -85 / -85
--- NOTE | 2024-04-04 10:04 | PTCARENOTE ---
Addendum entered by Ruth Mosquera RN 04/04/24 10:28:
Pt voided [address] Yu notified and wants to hold off on gaona for now.
Original Note:
Bladder scan performed [address] ml. [address] Yu notified and ordered gaona catheter.
--- NOTE | 2024-04-04 10:06 | PTCARENOTE ---
Pt went to IR for Rt thoracentesis 600 ml out.
[2024-04-04] MEDS: ALDACTONE 25 MG PO (10:19)
[2024-04-04] MEDS: KCL 40 MEQ PO (10:19)
--- NOTE | 2024-04-04 11:17 | W.PN.CD ---
Today's Communication / Plan
-
no changes in cardiac meds today; uptitrate metop to 150 tomorrow if rates still >90
appears euvolemic, cont. PO diuresis for goal even / stable weight
Impression / Plan
-
BACKGROUND: 78F with hypertension, prior HFpEF, paroxysmal atrial fibrillation (on apixaban) and pelvic abscess with drain in place who presented to the emergency department with shortness of breath.
Patternmaker All Around: Dr. Blas
Paroxysmal atrial fibrillation, presented in RVR
- Rate: rate 90s on metoprolol succinate 100 mg daily. If still persistently 90-100s can increase to 150 tomorrow (04/05). Hopefully this will improve with treatment of infection.
- [id number] is 5 (Age, gender, HTN and HF)
- cardioversion if still in Afib closer to discharge
- Continue apixaban 5 mg twice daily
HFpEF => New HFrEF
- Likely related to infection and fast AFib; anticipate LVEF will recover
- Continue metoprolol succinate 100, increase to 150 as per above
- cont. low-dose Entresto (start 04/03)
- cont. spironolactone to 25 mg daily
- Continue SGLT2-I
- Appears euvolemic, cont. PO lasix daily
- s/p R thoracentesis with 600 cc fluid removed today, follow up studies
HTN, controlled
-Holding enalapril and hydralazine in order to get GDMT on board
Left tubo-ovarian abscess, drain in place, she has leukocytosis but no pain
Former smoker, continued cessation recommended
Subjective:
Doing well post-thoracentesis. Breathing feels stable compared to yesterday.
DATA:
Echo this admit :
Moderately reduced left ventricular systolic function. Normal right
ventricular size and reduced systolic function of the apex
LV ejection fraction is 30-35% by visual estimate.
Hypokinesis of the mid to apical arredondo with the basal arredondo best preserved.
Moderate pulmonary hypertension. Bilateral pleural effusion present.
Compared to the prior study on 12/09/2023, the systolic dysfunction is new.
Pulmonary hypertension and pleural effusions are also new.
Lexiscan nuclear stress test, 01/29/2024:
Negative ECG for ischemia. Normal perfusion imaging. EF 67%.
Low risk study but moderate risk due to inability to exercise.
Transthoracic echocardiogram, 12/09/2023:
Normal left ventricular size with mild concentric remodeling and normal
systolic function. No regional wall motion abnormalities are seen. LV ejection
fraction is 60-65% by Genao's method of discs. Normal diastolic function.
Normal right ventricular size and function.
Normal atria.
Aortic sclerosis without stenosis.
No other significant valve abnormalities.
No evidence of pulmonary hypertension.
Physical Exam
Vital Signs/Labs
Vital Signs
Temp Pulse Resp BP Pulse Ox
36.4 C 92 16 142/96 95
04/04/24 07:52 04/04/24 09:16 04/04/24 08:22 04/04/24 09:16 04/04/24 07:52
04/03/24 04/04/24 04/05/24
06:59 06:59 06:59
Actual Weight 63.5 kg
04/01/24 04:57
04/04/24 05:25
PT 24.1 Sec (11.4-14.6) H 03/28/24 21:54
INR 2.17 03/28/24 21:54
Magnesium 1.6 mg/dl (1.6-2.3) 04/04/24 05:25
03/28/24
21:54
Lmq-F-Icomcnjgeyc Pept > [id number]
Physical Exam
Constitutional: No acute distress
Cardiovascular: Systolic murmur absent and Other (irregular and tachycardic)
Respiratory: Respiratory effort normal
Neuro/Psych: AO x 3
Data Reviewed
-
Date of Service: April 04, 2024
Medical Decision Making: Reviewed Test Results
X-Ray/CT/US/MRI/NUC/PET: Image Personally Visualized and interpreted and Report Reviewed by me
Labs: Labs Reviewed by me
--- NOTE | 2024-04-04 12:18 | CM ---
Reviewed chart. Met with Mrs. Huggins and her son to review discharge plans. We reviewed she will need two more weeks of IV ABX. Also reviewed SNF/Rehab. Son states he would like to explore [facility] as his first choice and the [facility] "as a second choice. Telephone call to [facility] to make the referral. Sent Referral. Medical work-up in progress. The discharge plan is to go to SNF/Rehab.-hopefully [facility] if bed available when medically stable.
[2024-04-04] MEDS: TYLENOL 650 MG PO (12:26)
--- NOTE | 2024-04-04 13:17 | PTCARENOTE ---
1230 Pt c/o left shoulder pain 650 mg PO Tylenol given
--- NOTE | 2024-04-04 16:55 | PTCARENOTE ---
Bladder scan 473ML Dr Yu notified. Pt encouraged to try to urinate. 150 ml out from [facility]. Dr Yu was messaged
[2024-04-04] MEDS: XANAX 0.25 MG PO (23:08)
[2024-04-04] MEDS: XALATAN OPHTHALMIC SOLUTION 1 DROP BOTH EYES (23:08)
[2024-04-05 03:55] VITALS: BP 122/82
[2024-04-05 04:41] LABS: Blood Urea Nitrogen 14 mg/dl (7-17); Calcium 8.9 mg/dl (8.4-10.2); Carbon Dioxide 33 mmol/L (22-30); Chloride 93 mmol/L (98-107); Estimated Creatinine Clearance 46 ml/min; Glucose 89 mg/dl (70-99); Magnesium 1.6 mg/dl (1.6-2.3); Potassium 3.5 mmol/L (3.5-5.1); Sodium 133 mmol/L (135-145); eGFR > 60.00
--- NOTE | 2024-04-05 04:50 | PTCARENOTE ---
Patient w/ 175mls of urine output in purewick canister thus shift. This RN bladder scanned patient w/ a result of 320mls. Patient denies any bladder distension and denies any burning when urinating. Tele remains Afib, HR in the 80-90s at rest. Right
back band-aid C/D/I. POC ongoing, call parrish within reach.
[2024-04-05 06:48] VITALS: BP 123/83
[2024-04-05] MEDS: MERREM 500 MG IV ×2 (08:05→15:50)
[2024-04-05] MEDS: TOPROL XL 100 MG PO (08:11)
[2024-04-05] MEDS: STERILE WATER FOR INJECTION 10 ML IV ×2 (08:11→15:50)
[2024-04-05] MEDS: ALDACTONE 25 MG PO (08:11)
[2024-04-05] MEDS: PROZAC 20 MG PO (08:11)
[2024-04-05] MEDS: LASIX 40 MG PO (08:12)
[2024-04-05] MEDS: ENTRESTO 24 MG/26 MG 1 TAB PO ×2 (08:12→20:00)
[2024-04-05] MEDS: FLUSH (NSS) 1 FLUSH IV ×2 (08:12→15:52)
[2024-04-05] MEDS: FARXIGA 10 MG PO (08:12)
[2024-04-05] MEDS: ELIQUIS 5 MG PO ×2 (08:12→20:00)
[2024-04-05] MEDS: TIMOPTIC 0.5% OPHTHALMIC SOLUTION 1 DROP BOTH EYES (08:14)
--- NOTE | 2024-04-05 08:16 | W.PN.CD ---
Today's Communication / Plan
-
Rates controlled
Once daily PO diuresis.
Cont. GDMT titration; consider increasing to med dose Entresto tomorrow
Impression / Plan
-
BACKGROUND: 78F with hypertension, prior HFpEF, paroxysmal atrial fibrillation (on apixaban) and pelvic abscess with drain in place who presented to the emergency department with shortness of breath.
Membership Coordinator: Dr. Blas
Paroxysmal atrial fibrillation, presented in RVR
- Rate: rate 80s-90s on metoprolol succinate 100 mg daily.
- [id number] is 5 (Age, gender, HTN and HF)
- cardioversion if still in Afib closer to discharge
- Continue apixaban 5 mg twice daily
HFpEF => New HFrEF
- Likely related to infection and fast AFib; anticipate LVEF will recover
- Continue metoprolol succinate 100
- cont. low-dose Entresto (start 04/03), consider transition to medium dose Entresto next
- cont. spironolactone to 25 mg daily (started 04/04)
- Continue SGLT2-I
- Appears euvolemic, cont. PO lasix daily
- s/p R thoracentesis with 600 cc fluid removed today, follow up studies
HTN, controlled
-Holding enalapril and hydralazine in order to get GDMT on board
Left tubo-ovarian abscess, drain in place, she has leukocytosis but no pain
Former smoker, continued cessation recommended
Subjective:
Doing well post-thoracentesis. Breathing feels stable compared to yesterday.
TELE 04/05: Afib w/ rates 80-90s
DATA:
Echo this admit :
Moderately reduced left ventricular systolic function. Normal right
ventricular size and reduced systolic function of the apex
LV ejection fraction is 30-35% by visual estimate.
Hypokinesis of the mid to apical arredondo with the basal arredondo best preserved.
Moderate pulmonary hypertension. Bilateral pleural effusion present.
Compared to the prior study on 12/09/2023, the systolic dysfunction is new.
Pulmonary hypertension and pleural effusions are also new.
Lexiscan nuclear stress test, 01/29/2024:
Negative ECG for ischemia. Normal perfusion imaging. EF 67%.
Low risk study but moderate risk due to inability to exercise.
Transthoracic echocardiogram, 12/09/2023:
Normal left ventricular size with mild concentric remodeling and normal
systolic function. No regional wall motion abnormalities are seen. LV ejection
fraction is 60-65% by Genao's method of discs. Normal diastolic function.
Normal right ventricular size and function.
Normal atria.
Aortic sclerosis without stenosis.
No other significant valve abnormalities.
No evidence of pulmonary hypertension.
Physical Exam
Vital Signs/Labs
Vital Signs
Temp Pulse Resp BP Pulse Ox
36.9 C 90 16 122/82 95
04/05/24 06:44 04/05/24 04:00 04/05/24 06:44 04/05/24 03:55 04/05/24 06:44
04/04/24 04/05/24 04/06/24
06:59 06:59 06:59
Actual Weight 63.5 kg
04/01/24 04:57
04/05/24 04:05
PT 24.1 Sec (11.4-14.6) H 03/28/24 21:54
INR 2.17 03/28/24 21:54
Magnesium 1.6 mg/dl (1.6-2.3) 04/05/24 04:05
03/28/24
21:54
Ocw-[id number]-Yfebanqcygg Pept > [id number]
Physical Exam
Constitutional: No acute distress
Cardiovascular: Rhythm & rate is regular, Pedal edema is absent, JVD pressure is normal, Systolic murmur absent and Diastolic murmur absent
Respiratory: Respiratory effort normal, Lungs clear to auscul. and Wheeze Absent
Neuro/Psych: AO x 3
Data Reviewed
-
Date of Service: April 05, 2024
Medical Decision Making: Reviewed Test Results
EKG: Tracing Personally Visualized and interpreted
Labs: Labs Reviewed by me
[2024-04-05] MEDS: KCL 40 MEQ PO (08:19)
--- NOTE | 2024-04-05 08:35 | W.PN.ID1 ---
Date of Service
Date of Service: April 05, 2024
Today's Communication
- stable for dc from ID perspective when outpatient IV antibiotics arranged
Assessment / Plan
Intraabdominal Abscess - likely diverticular
- 03/11 culture: few Pseudomonas, many ESBL K oxytoca, few S cerevisiae
- c/w micafungin through the planned procedure and 5 days after 04/20
- c/w with meropenem through the planned procedure and 5 days after 04/20
- script given to heel caser
- picc
- she is currently planned for the OR electively on 04/15
- stable for dc from ID perspective when outpatient IV antibiotics arranged
Chief Complaint
-: Other (intraabdominal abscess)
Subjective / Review of Systems
afebrile
bp stable
some urinary retention
Vital Signs / Physical Exam
Vital Signs
Vital Signs
Temp Pulse Resp BP Pulse Ox
98.4 F 98 16 123/83 95
04/05/24 06:44 04/05/24 08:12 04/05/24 06:44 04/05/24 08:12 04/05/24 06:44
Physical Exam
Constitutional: No Acute Distress
Cardiovascular: Regular Rate and S1/S2; Negative Murmur or Rub
Pulmonary: Clear and Symmetric; Negative Wheezes or Rales
Gastrointestinal: Soft, Non Tender, Non Distended and Normal Bowel Sounds
Skin: Warm and Dry; Negative Rash or Jaundice
Objective Data
Lab Data
Lab Results
04/01/24 04:57
04/05/24 04:05
PT 24.1 Sec (11.4-14.6) H 03/28/24 21:54
INR 2.17 03/28/24 21:54
Estimated Creat Clear 46 ml/min 04/05/24 04:05
Total Bilirubin 1.7 mg/dl (0.2-1.3) H 03/28/24 21:54
AST 132 U/L (14-36) H 03/28/24 21:54
ALT 35 U/L (0-35) 03/28/24 21:54
Alkaline Phosphatase 51 U/L (38-126) 03/28/24 21:54
Most recent labs reviewed.
Micro Results:
04/04/24 08:15 Body Fluid Culture - Preliminary
Pleural Fluid No Growth After 18-24 Hours
Gram Stain - Preliminary
03/29/24 04:25 MRSA Screen - Final
Nose No Methicillin Resistant Staphylococcus aureus isolated.
--- NOTE | 2024-04-05 09:04 | PTCARENOTE ---
received patient this am in bed, tired, able to communicate well. son just arrived and was concerned that his mother has slow speech will notify Dr. Yu. monitor shows Afib, VSS, right PICC patent and flushed. patient able to take am medications with
applesauce. pure wick changed and remains in place, pt. inc. at times. patient able to order her own breakfast and appetite is fair today.
[2024-04-05] MEDS: MYCAMINE 105 MG IV (10:26)
[2024-04-05 11:12] VITALS: BP 110/72
[2024-04-05 13:07] VITALS: BMI 23.6
--- NOTE | 2024-04-05 13:10 | CM ---
Reviewed chart. Telephone call to [facility] Admission to check on status of referral. Currently [facility] does not have an available bed. Met with son, Mr. Huggins who is requesting a referral to [facility]. at [place]. [facility]. Sent the referral. Telephone call to [facility] Liaison to make the referral. Sent the referral. Medical work-up in progress. The discharge plan is to go to SNF/Rehab. when medically stable.
[2024-04-05 15:28] VITALS: BP 120/99
[2024-04-05 15:53] VITALS: BP 120/99
--- NOTE | 2024-04-05 16:17 | W.PN.HOSP.TC ---
Today's Communication/Plan
-
see bold
Assessment / Plan
Assessment / Plan
1. Paroxysmal atrial fibrillation with rapid ventricular rate
-Patient came in for RVR - was asymptomatic
-Was previously on metoprolol tartrate 12.5 mg twice a day/Eliquis
-Appreciate cardiology input, currently on metoprolol succinate 100 mg daily, HR 83-104
-Continue Eliquis
2. Peridiverticular/tubo-ovarian abscess
History of recurrent sigmoid diverticulitis
Recurrence leukocytosis
-Patient is planned to undergo surgery for persistent tubo-ovarian/peridiverticular abscess by Dr. Griffith and Demario
-GRAHAM drain showing Pseudomonas aeruginosa/ESBL Klebsiella/Saccharomyces service
-Patient was discharged on regimen of ciprofloxacin 500 twice daily/fluconazole 400 daily/Flagyl 500 Q8 on 03/20
-Patient planned to undergo surgery on 04/15
-At admission regimen changed to Merrem/fluconazole. Will need arrangement before discharge.
-CT a/p this admit showing displaced GRAHAM drain although abscess size decreased, repeat GRAHAM drain not possible per IRAD - CRS/onc turbine technician notified
-All drains removed, ID signed off
3. Acute on Chronic sysotlic HF
Acute hypoxic resp insufficiency
-TTE showing EF 30-35%, hypokinesis of mid to apical arredondo. mod pulm HTN
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
-Currently on Entresto/Aldactone as part of GDMT
-Chest x-ray admission showing questionable pulmonary congestion
-proBNP greater than 27,000 at admission
-Patient have minimal hypoxia as well
-Appreciate cardiology input, status post IV Lasix, now on Lasix 40 mg p.o. daily
4. Recurrent urinary retention
-Patient had problem with urinary retention last admission
-Reason likely with bladder laxity from amb dysfunction/repeated admission and altered sensation with pelvic pathology
-Continues to have recurrent urinary retention, Borjas placed, then removed 04/03
-She has been able to void, continue bladder scan protocol
5. Elevated troponin
-From nonischemic myocardial injury likely
-Continue monitor
6. Bilateral pleural effusion
-Status post right thoracentesis draining 60 cc of clear yellow fluid 04/04
7. Diarrhea
-reported loose stool
-possible abx use related, monitor and check C. difficile if needed
8. Hypokalemia
Repleted and resolved
9. Dysarthria
Suspect from fatigue, weakness
Son notes it is more prominent when patient is tired and weak
Head CT upon admission on 03/28, and head CT today 04/05 negative
Consult SPL
DVT prophylaxis�Eliquis
Full code
Dispo - PT rec SNF, family requesting [facility] c/s Physiatry
Updated son at bedside 04/05
Total time spent to see the patient on the floor, examine the patient, review data and lab results, discuss treatment plan with patient, nursing staff around 50 minutes.
Physical Exam
General: No acute distress
HEENT: Normocephalic, Atraumatic, EOMI, MMM
Respiratory: Left basilar crackles
Cardiac: Normal S1/S2, irregularly irregular
GI: Soft, Nontender, Nondistended, Normal Bowel Sounds
Extremities: No Clubbing, Cyanosis, or Edema
Neuro: Nonfocal/Grossly Intact
Anticipated Discharge: Within 24 hours
Subjective/Interval History
-
Date of Service: April 05, 2024
Patient denies chest pain, shortness of breath, or palpitations. No abdominal pain. She is able to void. No fever, no vomiting.
Objective Data
-
Labs:
Laboratory Results
04/05/24
04:05
Sodium 133 L
Potassium 3.5
Chloride 93 L
Carbon Dioxide 33 H
BUN 14
Creatinine 0.8
Glucose 89
Calcium 8.9
Vital Signs:
Vital Signs
Temp Pulse Resp BP Pulse Ox
98.0 F 98 16 120/99 97
04/05/24 15:27 04/05/24 15:27 04/05/24 15:27 04/05/24 15:53 04/05/24 15:27
I&O
04/04/24 04/05/24 04/06/24
06:59 06:59 06:59
Intake Total 50 / 50 105 / 105 105 / 105
Output Total 135 / 135 950 / 950 250 / 250
Balance -85 / -85 -845 / -845 -145 / -145
[2024-04-05 20:08] VITALS: BP 131/68
[2024-04-05] MEDS: XALATAN OPHTHALMIC SOLUTION 1 DROP BOTH EYES (22:52)
[2024-04-05] MEDS: XANAX 0.25 MG PO (22:52)
[2024-04-06] VITALS (9 sets, daily range): BP systolic 100–138; BP diastolic 65–86; PULSE 88–104; O2SAT 95–96; BMI 24.4
[2024-04-06] MEDS: STERILE WATER FOR INJECTION 10 ML IV ×4 (00:13→23:51)
[2024-04-06] MEDS: MERREM 500 MG IV ×4 (00:13→23:51)
[2024-04-06] MEDS: CATHFLO/ACTIVASE 2 MG INTRACATH (02:45)
--- NOTE | 2024-04-06 03:11 | VATNOTE ---
CALLED TO ASSESS PURPLE LUMEN OF 5FR DL R PICC. UNABLE TO FLUSH OR ASPIRATE LUMEN, VISIBLE BLOOD IN LUMEN. CATHFLO PROTOCOL VIA STOP COCK DOCUMENTED. PCN AWARE OF INTERVENTION AND PLAN OF CARE. VAT TO FOLLOW.
[2024-04-06 05:21] LABS: Blood Urea Nitrogen 12 mg/dl (7-17); Carbon Dioxide 32 mmol/L (22-30); Chloride 93 mmol/L (98-107); Estimated Creatinine Clearance 46 ml/min; Glucose 88 mg/dl (70-99); Magnesium 1.6 mg/dl (1.6-2.3); Potassium 3.7 mmol/L (3.5-5.1); Sodium 133 mmol/L (135-145); eGFR > 60.00
--- NOTE | 2024-04-06 06:08 | VATNOTE ---
CATHFLO ASPIRATED FROM PURPLE LUMEN OF 5FR DL R PICC. EXCELLENT BLD RETURN. CAP CHANGED AND FLUSHED PER PROTOCOL. PCN AWARE OF OUTCOME.
--- NOTE | 2024-04-06 07:50 | W.PN.CD ---
Today's Communication / Plan
-
A-fib with recent rate control heart rates in the 90s occasionally above 100. Continue current dosing of Toprol. Toprol can be titrated if additional rate control required. Continue anticoagulation with Eliquis.
No current plan for cardioversion. Note suggest patient will require surgical intervention 04/15. Rhythm control versus rate control can be reassessed post op after patient has additional recovery and can consistently be on anticoagulation.
HFrEF stable on current therapy.
Impression / Plan
-
BACKGROUND: 78F with hypertension, prior HFpEF, paroxysmal atrial fibrillation (on apixaban) and pelvic abscess with drain in place who presented to the emergency department with shortness of breath.
Production Control Coordinating Clerk: Dr. Blas
Paroxysmal atrial fibrillation, presented in RVR
- Rate: rate 80s-90s on metoprolol succinate 100 mg daily. Will continue current dosing. Can titrate up additional rate control required.
- [id number] is 5 (Age, gender, HTN and HF)
- cardioversion if still in Afib can be considered in future but would hold off at this time due to the need for additional procedures which will require temp hold of anticoagulation.
- Continue apixaban 5 mg twice daily
HFpEF => New HFrEF
- Likely related to infection and fast AFib; monitor for improvement as patient's A-fib and infection are treated.
- Continue metoprolol succinate 100
- cont. low-dose Entresto (start 04/03), titration as blood pressure tolerates
- cont. spironolactone to 25 mg daily (started 04/04)
- Continue SGLT2-I
- Appears euvolemic, cont. PO lasix daily
- s/p R thoracentesis with 600 cc fluid removed today, follow up studies
HTN, controlled
-Patient will remain off enalapril and hydralazine. Patient now on Entresto
intraabdominal abscess-peridiverticular/tubo-ovarian abscess, drain in place,
-Patient has been seen by MARITIME ENGINEER and colorectal surgery this admission
- afebrile abx per ID
- eventual plan for surgery by Colorectal surgery
.
Former smoker, continued cessation recommended
Subjective:
No chest pain shortness of breath or palpitations. A-fib rate controlled
TELE 04/05: Afib w/ rates 80-90s
DATA:
Echo this admit :
Moderately reduced left ventricular systolic function. Normal right
ventricular size and reduced systolic function of the apex
LV ejection fraction is 30-35% by visual estimate.
Hypokinesis of the mid to apical arredondo with the basal arredondo best preserved.
Moderate pulmonary hypertension. Bilateral pleural effusion present.
Compared to the prior study on 12/09/2023, the systolic dysfunction is new.
Pulmonary hypertension and pleural effusions are also new.
Lexiscan nuclear stress test, 01/29/2024:
Negative ECG for ischemia. Normal perfusion imaging. EF 67%.
Low risk study but moderate risk due to inability to exercise.
Transthoracic echocardiogram, 12/09/2023:
Normal left ventricular size with mild concentric remodeling and normal
systolic function. No regional wall motion abnormalities are seen. LV ejection
fraction is 60-65% by Genao's method of discs. Normal diastolic function.
Normal right ventricular size and function.
Normal atria.
Aortic sclerosis without stenosis.
No other significant valve abnormalities.
No evidence of pulmonary hypertension.
Physical Exam
Vital Signs/Labs
Vital Signs
Temp Pulse Resp BP Pulse Ox
97.7 F 99 16 131/86 97
04/06/24 06:51 04/06/24 07:00 04/06/24 06:51 04/06/24 06:51 04/06/24 06:51
04/05/24 04/06/24 04/07/24
06:59 06:59 06:59
Actual Weight 62.46 kg
04/01/24 04:57
04/06/24 04:30
PT 24.1 Sec (11.4-14.6) H 03/28/24 21:54
INR 2.17 03/28/24 21:54
Magnesium 1.6 mg/dl (1.6-2.3) 04/06/24 04:30
03/28/24
21:54
[id number] Pept > [id number]
Physical Exam
Constitutional: No acute distress
Cardiovascular: Rhythm/rate is irregular
Respiratory: Respiratory effort normal
GI: Soft and Other (Abdominal drain. Reports that she did have some left lower quadrant discomfort this morning.)
Neuro/Psych: Alert
Data Reviewed
-
Date of Service: April 06, 2024
Medical Decision Making: Reviewed Test Results
Echo: Report Reviewed by me
Medical Tests (PFT, Pathology etc): Report Reviewed by me
Labs: Labs Reviewed by me
[2024-04-06] MEDS: FARXIGA 10 MG PO (08:50)
[2024-04-06] MEDS: ENTRESTO 24 MG/26 MG 1 TAB PO ×2 (08:50→19:38)
[2024-04-06] MEDS: LASIX 40 MG PO (08:50)
[2024-04-06] MEDS: PROZAC 20 MG PO (08:50)
[2024-04-06] MEDS: TOPROL XL 100 MG PO (08:50)
[2024-04-06] MEDS: ALDACTONE 25 MG PO (08:50)
[2024-04-06] MEDS: ELIQUIS 5 MG PO ×2 (08:50→19:38)
[2024-04-06] MEDS: FLUSH (NSS) 3 FLUSH IV (08:51)
[2024-04-06] MEDS: TIMOPTIC 0.5% OPHTHALMIC SOLUTION 1 DROP BOTH EYES (08:52)
--- NOTE | 2024-04-06 09:00 | CON.MD ---
Documented by User: Madeleine Priest PA-C 04/06/24 17:06
Consultation - Medical
-
Referring Provider: [facility] Best Do
Chief Complaint: debility
History of Present Illness: Ms Huggins is an 78 year old female admitted on 03/28 from SNF with sob, tachycardia, LLE swelling, dry heaving, weakness and fatigue. She is known with recurrent sigmoid diverticulitis and pelvic abscess -
suspected diverticular with secondarily involved TOA with drain in place. Last cultures with Pseudomonas aeruginosa, Klebsiella-ESBL and Saccharomyces cerivisiae. She was taking probiotics,ciprofloxacin, metronidazole and fluconazole with plans to
continue these therapies through her planned hysterectomy on 04/01. GRAHAM output was dropping off but maintained in place. Then last night she developed swelling in the leg treated with lasix, then dry heaves and tachycardia to the 150s. Later in
the day with anorexia but no vomiting or diarrhea. No fevers, chills or abdominal pain. Does report ongoing weakness and fatigue. She was given a bolus of 1L and developed wheezing and nonproductive cough. Pulse ox 88% on room air and EMS was
called. she was found to be in acute on chronic CHF and A-fib. CT scan of the head was negative.
Past Medical History: CHF, GERD, A-fib, hypertension, sigmoid diverticulitis,
Procedure History: Right thoracentesis, cholecystectomy,
Family History: non contributory
Social History:
Functional Level Premorbidly: previously Independent with all activities and ambulating with single-point cane outside of house
Functional Level Currently: Toilet transfer�mod assist x 2, grooming�min assist eating�set up, bed mobility supine to sit�min assist, ambulated 10 feet time to with min assist x 2 people
Tobacco: Denies
Alcohol: Denies
Drug use: Denies
Lives with: Partner
24-hour assistance available:
Number of floors: Split-level
# steps to enter: 6 steps to door, 6 steps to living area/bed/bath
# steps to second floor:split level- 6 steps
Potential First floor set up:
Driving: yes
Occupation: Retired
Allergies:
Allergy/AdvReac Type Severity Reaction Status Date / Time
amlodipine AdvReac stomach Verified 03/28/24 21:51
cramps
lisinopril AdvReac abdominal Verified 03/28/24 21:51
cramping
unknown drug Allergy Unknown Uncoded 03/28/24 21:51
Review of Systems:
Constitutional: (x) fatigue
Eye: (x) Normal _
Ear/Nose/Throat: (x) Normal _
Respiratory: (x) Normal _
Cardiovascular: (x) A-fib with RV
Gastrointestinal: (x) intraabdominal abscess
Genitourinary: (x) Normal _
Musculoskeletal: (x) Normal _
Integumentary: (x) Normal _
Neurologic: (x) Normal _
Psychiatric: (x) Normal _
Endocrine: (x) Normal _
Hematologic/Lymphatic: (x) Normal _
Allergic/Immunologic: (x) Normal _
Medications:
Active Current Visit Medication List
Category Date Time Status
Acetaminophen [Tylenol] Med 03/30/24 18:37 Active
650 mg PO Q4HPRN PRN
Alprazolam [Xanax] Med 03/29/24 01:33 Active
0.25 mg PO BIDPRN PRN
Alprazolam [Xanax] Med 03/29/24 22:00 Active
0.25 mg PO HS
Apixaban [Eliquis] Med 03/29/24 08:00 Active
5 mg PO BID
Bisacodyl [Dulcolax] Med 03/29/24 01:33 Active
10 mg RECTAL DAILYPRN PRN
Dapagliflozin [Farxiga] Med 04/02/24 08:00 Active
10 mg PO DAILY
Fluoxetine HCl [Prozac] Med 03/29/24 08:00 Active
20 mg PO DAILY
Flush (0.9% Sodium Chloride) [Flush (Nss)] Med 03/29/24 02:00 Active
See Dose Instructions IV PER PROTOCOL
Furosemide [Lasix] Med 04/05/24 08:00 Active
40 mg PO DAILY
Latanoprost [Xalatan Ophthalmic Solution] Med 03/29/24 22:00 Active
1 drop BOTH EYES HS
Loperamide [Imodium] Med 03/29/24 01:33 Active
2 mg PO [id number] PRN
Magnesium Hydroxide [Milk of Magnesia] Med 03/29/24 01:33 Active
30 ml PO [id number] PRN
Meropenem [Merrem] Med 04/02/24 00:00 Active
500 mg IV Q8H
Metoprolol Xl [Toprol Xl] Med 04/03/24 08:00 Active
100 mg PO DAILY
Micafungin Sodium [Mycamine] 100 mg Med 03/29/24 12:00 Active
Dextrose 5%/Water 100 ml [D5w] 100 ml
IV DAILY@1000
Ondansetron Injectable [Zofran] Med 03/29/24 03:33 Active
4 mg IV Q6HPRN PRN
Phosphate Enema [Fleet Phosphate Enema-Adult] Med 03/29/24 01:33 Active
118 ml RECTAL DAILYPRN PRN
Sacubitril 24/Valsartan 26 [Entresto 24 mg/26 mg] Med 04/02/24 11:15 Active
1 tab PO BID
Spironolactone [Aldactone] Med 04/04/24 11:22 Active
25 mg PO DAILY
Sterile Water [Sterile Water For Injection] Med 04/02/24 00:00 Active
10 ml IV Q8H
Timolol Maleate 0.5% [Timoptic 0.5% Ophthalmic Solution Med 03/29/24 08:00 Active
]
1 drop BOTH EYES DAILY
Vitals:
Temp Pulse Resp BP Pulse Ox
97.7 F 92 16 138/81 94
04/06/24 04:19 04/06/24 04:19 04/06/24 04:19 04/06/24 04:19 04/06/24 04:19
Height 5 ft 3 in
Actual Weight 62.46 kg
Body Mass Index (BMI) 24.4
Physical Exam:
General Appearance/Observation: Well-developed, well-nourished individual in no apparent distress.
Pain/Comfort Assessment: Denies
Mood/Affect: Appropriate
Integumentary/Operative Site:
Pressure Ulcer Evaluation: absent over heels.
Other Type of Wound: absent
Eyes: Conjunctiva/Lids: normal Pupils: pupils equal round
Ears/Nose/Throat: oral mucosa moist, throat clear. Lips/Teeth/Gums: normal
Neck: No muscle spasm or tenderness
Cardiovascular: Heart: regular, no murmur
Pulses: dorsalis pedis 2+ bilaterally
Respiratory: Respiratory Effort/Chest Expansion: normal Auscultation: mild coarse sounds right lower lobe
Gastrointestinal: abdomen not tender, no distension, normal abdominal bowel sounds
Genitourinary: No Borjas
Extremities: Edema: None Cyanosis: None Trophic changes: None
Neurology Exam:
Orientation: Alert, Oriented to self, Time, Place
Memory: Intact for immediate medical concerns
Comprehension: Intact
Two step command: Intact
Cranial Nerves:
CNII: Pupillary light reflex: Intact Visual Field: NT
CN III, IV, : Extraocular muscles: Intact
CN V: Facial Sensation at Forehead: Intact, Maxilla: Intact, Mandible: Intact
CN VII: Facial movement: Symmetric
CN VIII: Hearing: Normal
CN IX/X: Speech & swallow: Normal, Position of Uvula: Midline
CN XI: Shoulder shrug: Symmetric
CN XII: Tongue protrusion: Midline
Sensory:
Light touch: Intact in bilateral upper and lower extremities
Reflexes:
Biceps: absent bilaterally
Brachioradialis: absent bilaterally
Triceps: absent bilaterally
Patellar: absent bilaterally
Achilles: absent bilaterally
Clonus: None
Melissa: Negative bilaterally
Cerebellar: Dysmetria/Ataxia: None
Musculoskeletal: Motor: (Manual muscle scale 0-5)�
Muscle SA EF WE EE FF FA HF KE DF EHL PF
Right� 5 5 5 4 4 5 4 4
Left 5 5 5 4 4 5 4 4
�
Tone: Normal in all extremities�
Motor: (Manual muscle scale 0-5)
Muscle
Tone: Normal in all extremities
Range of Motion: Passively within normal limits in all extremities
Lab Results:
Labs
WBC 11.6 10^3/uL (4.8-10.8) H 04/01/24 04:57
RBC 4.38 10^6/uL (4.20-5.40) 04/01/24 04:57
Hgb 12.9 g/dL (12.0-16.0) 04/01/24 04:57
Hct 37.4 % (37.0-47.0) 04/01/24 04:57
MCV 85.4 fL (81.0-99.0) 04/01/24 04:57
MCH 29.5 pg (27.0-31.0) 04/01/24 04:57
MCHC 34.5 g/dL (33.0-37.0) 04/01/24 04:57
RDW 15.1 % (11.5-14.5) H 04/01/24 04:57
Plt Count 550 10^3/uL (130-400) H D 04/01/24 04:57
MPV 11.6 fL (7.4-10.4) H 04/01/24 04:57
Abs Immat Gran (auto) 0.2 10^3/uL (0-0.05) H 03/28/24 21:54
Absolute Neuts (auto) 17.9 10^3/uL (1.4-6.5) H 03/28/24 21:54
Absolute Lymphs (auto) 1.3 10^3/uL (1.2-3.4) 03/28/24 21:54
Absolute Monos (auto) 2.2 10^3/uL (0.1-0.6) H 03/28/24 21:54
Absolute Eos (auto) 0.0 10^3/uL (0-0.7) 03/28/24 21:54
Absolute Basos (auto) 0.1 10^3/uL (0-0.2) 03/28/24 21:54
Immature Gran % 1.0 % (0-0.5) H 03/28/24 21:54
Neutrophils % 82.3 % (42.2-75.2) H 03/28/24 21:54
Lymphocytes % 6.1 % (20.5-51.1) L 03/28/24 21:54
Monocytes % 10.2 % (1.7-9.3) H 03/28/24 21:54
Eosinophils % 0.0 % (0-6) 03/28/24 21:54
Basophils % 0.4 % (0-2) 03/28/24 21:54
Nucleated RBC % 0 % 03/28/24 21:54
PT 24.1 Sec (11.4-14.6) H 03/28/24 21:54
INR 2.17 03/28/24 21:54
Sodium 133 mmol/L (135-145) L 04/06/24 04:30
Potassium 3.7 mmol/L (3.5-5.1) 04/06/24 04:30
Chloride 93 mmol/L (98-107) L 04/06/24 04:30
Carbon Dioxide 32 mmol/L (22-30) H 04/06/24 04:30
BUN 12 mg/dl (7-17) 04/06/24 04:30
Creatinine 0.8 mg/dL (0.6-1.0) 04/06/24 04:30
Estimated Creat Clear 46 ml/min 04/06/24 04:30
eGFR > 60.00 04/06/24 04:30
Glucose 88 mg/dl (70-99) 04/06/24 04:30
Calcium 9.0 mg/dl (8.4-10.2) 04/06/24 04:30
Magnesium 1.6 mg/dl (1.6-2.3) 04/06/24 04:30
Total Bilirubin 1.7 mg/dl (0.2-1.3) H 03/28/24 21:54
AST 132 U/L (14-36) H 03/28/24 21:54
ALT 35 U/L (0-35) 03/28/24 21:54
Alkaline Phosphatase 51 U/L (38-126) 03/28/24 21:54
Troponin I 0.609 ng/ml H* 03/29/24 04:59
Ecf-R-Pzvzycjmynu Pept > 13686 pg/ml 03/28/24 21:54
Total Protein 5.9 g/dl (6.3-8.2) L 03/28/24 21:54
Albumin 3.5 g/dl (3.5-5.0) 03/28/24 21:54
Procalcitonin 0.28 ng/ml (0.0-0.25) H 03/29/24 03:00
Fluid WBC 243 /CUMM 04/04/24 08:15
Fluid Mononuclear Cell 87.3 % 04/04/24 08:15
Fl Polymorphonucl Cell 12.7 % 04/04/24 08:15
Fluid Other Cells Not Reportable 04/04/24 08:15
Fluid Diff Path Review Not Reportable 04/04/24 08:15
Fluid Glucose 109 mg/dl 04/04/24 08:15
Fluid Total Protein < 2.0 g/dl 04/04/24 08:15
SARS-CoV-2 Antigen Negative (Negative) 03/29/24 10:21
Diagnostic Results: as per HPI
Assessment: 78 year old female with known recurrent sigmoid diverticulitis and pelvic abscess admitted with sob and found to have acute on chronic CHF and A-Fib. On antibiotics for intraabdominal abscess with planned surgery for 04/15.
Plan
PT/OT to increase independence with ADLs, improve balance, coordination, endurance, strength, mobility, community reintegration, decreased burden of care on others and family education.
Intraabdominal Abscess/Peridiverticular/tubo-ovarian abscess - likely diverticular. 03/11 culture: few Pseudomonas, many ESBL K oxytoca, few S cerevisiae. Cont with IV meropenem 500mg q8 hours through the planned procedure and 5 days after
04/20.Currently planned for the OR electively on 04/15 persistent tubo-ovarian/peridiverticular abscess by Dr. Griffith and Demario.
CT a/p this admit showing displaced GRAHAM drain although abscess size decreased, repeat GRAHAM drain not possible per [facility] - CRS/onc bar manager notified
Paroxysmal atrial fibrillation: metoprolol succinate 12.5 bid increased to 100 mg daily. Continue Eliquis 5 mg twice daily
Acute on Chronic sysotlic HF:Currently on Entresto/Aldactone as part of GDMT, Lasix 40 mg p.o. daily, spironolactone 25 mg daily Farxiga 10 mg daily
-TTE showing EF 30-35%, hypokinesis of mid to apical arredondo. mod pulm HTN
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
-proBNP greater than 27,000 at admission
Recurrent urinary retention: Borjas removed.
Elevated troponin :nonischemic myocardial injury likely.Continue monitor
Bilateral pleural effusion: S/P right thoracentesis with 60 cc of clear yellow fluid 04/04
Diarrhea:-possible abx use related, monitor and check C. difficile if needed. Imodium 2 mg every 12 as needed
Hypokalemia:resolved
Dysarthria: Suspect from fatigue, weakness.Head CT upon admission on 03/28, and head CT today 04/05 negative. Consult SPL
Psych: Psychology consult. Xanax 0.25 at bedtime. Prozac at 40 mg daily
Skin: monitor for pressure sores/rashes/lesions.
Pain: acetaminophen as needed.
Bowel: Colace and Senna, PRN bisacodyl.
Bladder: Time void, PVRs, PRN straight cath.
GI Prophylaxis: Pantoprazole
DVT Prophylaxis: mechanical and Eliquis
Pulmonary: Incentive spirometry
Safety: Continue to reinforce assistance with all transfers.
Code Status: Full code
Dispo (date/plan/equipment needs): Home with family care. Social history reviewed.
Functional and Medical Goals: Modified Independent with ADL�s, ambulation, transfers
Discharge Destination: SNF
Summary of recommendations: Patient with intraabdominal abscess with requirement for continued IV antibiotics with planned surgery for 04/15, would benefit from SNF for antibiotics management and continued therapy to improve endurance.
Intraabdominal Abscess/Peridiverticular/tubo-ovarian abscess - likely diverticular. 03/11 culture: few Pseudomonas, many ESBL K oxytoca, few S cerevisiae. Cont with IV meropenem 500mg q8 hours through the planned procedure and 5 days after
04/20.Currently planned for the OR electively on 04/15 persistent tubo-ovarian/peridiverticular abscess by Dr. Griffith and Demario.
CT a/p this admit showing displaced GRAHAM drain although abscess size decreased, repeat GRAHAM drain not possible per [facility] -
Skin: monitor for pressure sores/rashes/lesions.
Pain: acetaminophen as needed.
Bowel: Colace and Senna, PRN bisacodyl.
Bladder: Time void, PVRs, PRN straight cath.
GI Prophylaxis: Pantoprazole
DVT Prophylaxis: mechanical and Eliquis
Pulmonary: Incentive spirometry
Thank you for allowing me to care for your patient. Please contact me with any questions or concerns.

Documented by User: Husam Powers MD 04/06/24 21:34
Consultation - Medical
-
Referring Provider: [place] Best Do
Chief Complaint: debility
History of Present Illness: Ms Huggins is an 78 year old female admitted on 03/28 from SNF with sob, tachycardia, LLE swelling, dry heaving, weakness and fatigue. She is known with recurrent sigmoid diverticulitis and pelvic abscess -
suspected diverticular with secondarily involved TOA with drain in place. Last cultures with Pseudomonas aeruginosa, Klebsiella-ESBL and Saccharomyces cerivisiae. She was taking probiotics,ciprofloxacin, metronidazole and fluconazole with plans to
continue these therapies through her planned hysterectomy on 04/01. GRAHAM output was dropping off but maintained in place. Then last night she developed swelling in the leg treated with lasix, then dry heaves and tachycardia to the 150s. Later in
the day with anorexia but no vomiting or diarrhea. No fevers, chills or abdominal pain. Does report ongoing weakness and fatigue. She was given a bolus of 1L and developed wheezing and nonproductive cough. Pulse ox 88% on room air and EMS was
called. she was found to be in acute on chronic CHF and A-fib. CT scan of the head was negative.
Past Medical History: CHF, GERD, A-fib, hypertension, sigmoid diverticulitis,
Procedure History: Right thoracentesis, cholecystectomy,
Family History: non contributory
Social History:
Functional Level Premorbidly: previously Independent with all activities and ambulating with single-point cane outside of house
Functional Level Currently: Toilet transfer�mod assist x 2, grooming�min assist eating�set up, bed mobility supine to sit�min assist, ambulated 10 feet time to with min assist x 2 people
Tobacco: Denies
Alcohol: Denies
Drug use: Denies
Lives with: Partner
24-hour assistance available: Yes
Number of floors: Split-level
# steps to enter: 6 steps to door, 6 steps to living area/bed/bath
# steps to second floor:split level- 6 steps
Potential First floor set up: No
Driving: yes
Occupation: Retired
Allergies:
Allergy/AdvReac Type Severity Reaction Status Date / Time
amlodipine AdvReac stomach Verified 03/28/24 21:51
cramps
lisinopril AdvReac abdominal Verified 03/28/24 21:51
cramping
unknown drug Allergy Unknown Uncoded 03/28/24 21:51
Review of Systems:
Constitutional: (x) fatigue
Eye: (x) Normal _
Ear/Nose/Throat: (x) Normal _
Respiratory: (x) Normal _
Cardiovascular: (x) A-fib with RV
Gastrointestinal: (x) intraabdominal abscess
Genitourinary: (x) Normal _
Musculoskeletal: (x) Normal _
Integumentary: (x) Normal _
Neurologic: (x) Normal _
Psychiatric: (x) Normal _
Endocrine: (x) Normal _
Hematologic/Lymphatic: (x) Normal _
Allergic/Immunologic: (x) Normal _
Medications:
Active Current Visit Medication List
Category Date Time Status
Acetaminophen [Tylenol] Med 03/30/24 18:37 Active
650 mg PO Q4HPRN PRN
Alprazolam [Xanax] Med 03/29/24 01:33 Active
0.25 mg PO BIDPRN PRN
Alprazolam [Xanax] Med 03/29/24 22:00 Active
0.25 mg PO HS
Apixaban [Eliquis] Med 03/29/24 08:00 Active
5 mg PO BID
Bisacodyl [Dulcolax] Med 03/29/24 01:33 Active
10 mg RECTAL DAILYPRN PRN
Dapagliflozin [Farxiga] Med 04/02/24 08:00 Active
10 mg PO DAILY
Fluoxetine HCl [Prozac] Med 03/29/24 08:00 Active
20 mg PO DAILY
Flush (0.9% Sodium Chloride) [Flush (Nss)] Med 03/29/24 02:00 Active
See Dose Instructions IV PER PROTOCOL
Furosemide [Lasix] Med 04/05/24 08:00 Active
40 mg PO DAILY
Latanoprost [Xalatan Ophthalmic Solution] Med 03/29/24 22:00 Active
1 drop BOTH EYES HS
Loperamide [Imodium] Med 03/29/24 01:33 Active
2 mg PO [id number] PRN
Magnesium Hydroxide [Milk of Magnesia] Med 03/29/24 01:33 Active
30 ml PO [id number] PRN
Meropenem [Merrem] Med 04/02/24 00:00 Active
500 mg IV Q8H
Metoprolol Xl [Toprol Xl] Med 04/03/24 08:00 Active
100 mg PO DAILY
Micafungin Sodium [Mycamine] 100 mg Med 03/29/24 12:00 Active
Dextrose 5%/Water 100 ml [D5w] 100 ml
IV DAILY@1000
Ondansetron Injectable [Zofran] Med 03/29/24 03:33 Active
4 mg IV Q6HPRN PRN
Phosphate Enema [Fleet Phosphate Enema-Adult] Med 03/29/24 01:33 Active
118 ml RECTAL DAILYPRN PRN
Sacubitril 24/Valsartan 26 [Entresto 24 mg/26 mg] Med 04/02/24 11:15 Active
1 tab PO BID
Spironolactone [Aldactone] Med 04/04/24 11:22 Active
25 mg PO DAILY
Sterile Water [Sterile Water For Injection] Med 04/02/24 00:00 Active
10 ml IV Q8H
Timolol Maleate 0.5% [Timoptic 0.5% Ophthalmic Solution Med 03/29/24 08:00 Active
]
1 drop BOTH EYES DAILY
Vitals:
Temp Pulse Resp BP Pulse Ox
97.7 F 92 16 138/81 94
04/06/24 04:19 04/06/24 04:19 04/06/24 04:19 04/06/24 04:19 04/06/24 04:19
Height 5 ft 3 in
Actual Weight 62.46 kg
Body Mass Index (BMI) 24.4
Physical Exam:
General Appearance/Observation: Well-developed, well-nourished female in no apparent distress.
Pain/Comfort Assessment: occasional pain over prior drain site.
Mood/Affect: Appropriate
Integumentary/Operative Site: No open lesions noted during course of exam.
Eyes: Conjunctiva/Lids: normal Pupils: pupils equal round
Ears/Nose/Throat: oral mucosa moist, throat clear. Lips/Teeth/Gums: normal
Cardiovascular: Heart: regular, no murmur
Pulses: dorsalis pedis 2+ bilaterally
Respiratory: Respiratory Effort/Chest Expansion: normal Auscultation: mild coarse sounds right lower lobe
Gastrointestinal: abdomen not tender, no distension, normal abdominal bowel sounds
Genitourinary: No Borjas
Extremities: Edema: None Cyanosis: None Trophic changes: None
Neurology Exam:
Orientation: Alert, Oriented to self, Time, Place
Memory: Intact for immediate medical concerns
Comprehension: Intact
Two step command: Intact
Cranial Nerves:
CNII: Pupillary light reflex: Intact Visual Field: NT
CN III, IV, : Extraocular muscles: Intact
CN V: Facial Sensation at Forehead: Intact, Maxilla: Intact, Mandible: Intact
CN VII: Facial movement: Symmetric
CN VIII: Hearing: Normal
CN IX/X: Speech & swallow: Normal, Position of Uvula: Midline
CN XI: Shoulder shrug: Symmetric
CN XII: Tongue protrusion: Midline
Sensory:
Light touch: Intact in bilateral upper and lower extremities
Reflexes:
Biceps: absent bilaterally
Brachioradialis: absent bilaterally
Triceps: absent bilaterally
Patellar: absent bilaterally
Achilles: absent bilaterally
Clonus: None
Melissa: Negative bilaterally
Cerebellar: Dysmetria/Ataxia: None
Musculoskeletal: Motor: (Manual muscle scale 0-5)�
Muscle SA EF WE EE FF FA HF KE DF EHL PF
Right� 5 5 5 4 4 5 4 4
Left 5 5 5 4 4 5 4 4
�
Tone: Normal in all extremities
Range of Motion: Passively within normal limits in all extremities
Lab Results:
Labs
WBC 11.6 10^3/uL (4.8-10.8) H 04/01/24 04:57
RBC 4.38 10^6/uL (4.20-5.40) 04/01/24 04:57
Hgb 12.9 g/dL (12.0-16.0) 04/01/24 04:57
Hct 37.4 % (37.0-47.0) 04/01/24 04:57
MCV 85.4 fL (81.0-99.0) 04/01/24 04:57
MCH 29.5 pg (27.0-31.0) 04/01/24 04:57
MCHC 34.5 g/dL (33.0-37.0) 04/01/24 04:57
RDW 15.1 % (11.5-14.5) H 04/01/24 04:57
Plt Count 550 10^3/uL (130-400) H D 04/01/24 04:57
MPV 11.6 fL (7.4-10.4) H 04/01/24 04:57
Abs Immat Gran (auto) 0.2 10^3/uL (0-0.05) H 03/28/24 21:54
Absolute Neuts (auto) 17.9 10^3/uL (1.4-6.5) H 03/28/24 21:54
Absolute Lymphs (auto) 1.3 10^3/uL (1.2-3.4) 03/28/24 21:54
Absolute Monos (auto) 2.2 10^3/uL (0.1-0.6) H 03/28/24 21:54
Absolute Eos (auto) 0.0 10^3/uL (0-0.7) 03/28/24 21:54
Absolute Basos (auto) 0.1 10^3/uL (0-0.2) 03/28/24 21:54
Immature Gran % 1.0 % (0-0.5) H 03/28/24 21:54
Neutrophils % 82.3 % (42.2-75.2) H 03/28/24 21:54
Lymphocytes % 6.1 % (20.5-51.1) L 03/28/24 21:54
Monocytes % 10.2 % (1.7-9.3) H 03/28/24 21:54
Eosinophils % 0.0 % (0-6) 03/28/24 21:54
Basophils % 0.4 % (0-2) 03/28/24 21:54
Nucleated RBC % 0 % 03/28/24 21:54
PT 24.1 Sec (11.4-14.6) H 03/28/24 21:54
INR 2.17 03/28/24 21:54
Sodium 133 mmol/L (135-145) L 04/06/24 04:30
Potassium 3.7 mmol/L (3.5-5.1) 04/06/24 04:30
Chloride 93 mmol/L (98-107) L 04/06/24 04:30
Carbon Dioxide 32 mmol/L (22-30) H 04/06/24 04:30
BUN 12 mg/dl (7-17) 04/06/24 04:30
Creatinine 0.8 mg/dL (0.6-1.0) 04/06/24 04:30
Estimated Creat Clear 46 ml/min 04/06/24 04:30
eGFR > 60.00 04/06/24 04:30
Glucose 88 mg/dl (70-99) 04/06/24 04:30
Calcium 9.0 mg/dl (8.4-10.2) 04/06/24 04:30
Magnesium 1.6 mg/dl (1.6-2.3) 04/06/24 04:30
Total Bilirubin 1.7 mg/dl (0.2-1.3) H 03/28/24 21:54
AST 132 U/L (14-36) H 03/28/24 21:54
ALT 35 U/L (0-35) 03/28/24 21:54
Alkaline Phosphatase 51 U/L (38-126) 03/28/24 21:54
Troponin I 0.609 ng/ml H* 03/29/24 04:59
Ydb-G-Tqozimyvkgr Pept > 28535 pg/ml 03/28/24 21:54
Total Protein 5.9 g/dl (6.3-8.2) L 03/28/24 21:54
Albumin 3.5 g/dl (3.5-5.0) 03/28/24 21:54
Procalcitonin 0.28 ng/ml (0.0-0.25) H 03/29/24 03:00
Fluid WBC 243 /CUMM 04/04/24 08:15
Fluid Mononuclear Cell 87.3 % 04/04/24 08:15
Fl Polymorphonucl Cell 12.7 % 04/04/24 08:15
Fluid Other Cells Not Reportable 04/04/24 08:15
Fluid Diff Path Review Not Reportable 04/04/24 08:15
Fluid Glucose 109 mg/dl 04/04/24 08:15
Fluid Total Protein < 2.0 g/dl 04/04/24 08:15
SARS-CoV-2 Antigen Negative (Negative) 03/29/24 10:21
Diagnostic Results: as per HPI
Assessment:
78 year old female with known recurrent sigmoid diverticulitis and pelvic abscess admitted with sob and found to have acute on chronic CHF and A-Fib. On antibiotics for intraabdominal abscess with planned surgery for 04/15.
Plan
PT/OT to increase independence with ADLs, improve balance, coordination, endurance, strength, mobility, community reintegration, decreased burden of care on others and family education.
Intraabdominal Abscess/Peridiverticular/tubo-ovarian abscess - likely diverticular. 03/11 culture: few Pseudomonas, many ESBL K oxytoca, few S cerevisiae. Cont with IV meropenem 500mg q8 hours through the planned procedure and 5 days after
04/20.Currently planned for the OR electively on 04/15 persistent tubo-ovarian/peridiverticular abscess by Dr. Griffith and Demario.
CT a/p this admit showing displaced GRAHAM drain although abscess size decreased, repeat GRAHAM drain not possible per [facility] - CRS/onc bar manager notified
Paroxysmal atrial fibrillation: metoprolol succinate 12.5 mg bid increased to 100 mg daily. Continue Eliquis 5 mg twice daily
Acute on Chronic systolic Heart failure:Currently on Entresto/Aldactone as part of GDMT, Lasix 40 mg p.o. daily, spironolactone 25 mg daily Farxiga 10 mg daily
-TTE showing EF 30-35%, hypokinesis of mid to apical arredondo. mod pulm HTN
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
-proBNP greater than 27,000 at admission
Recurrent urinary retention: Borjas removed.
Elevated troponin :nonischemic myocardial injury likely.Continue monitor
Bilateral pleural effusion: S/P right thoracentesis with 60 cc of clear yellow fluid 04/04
Diarrhea:-possible abx use related, monitor and check C. difficile if needed. Imodium 2 mg every 12 as needed
Hypokalemia:resolved
Dysarthria: Suspect from fatigue, weakness.Head CT upon admission on 03/28, and head CT today 04/05 negative. Consult SPL
Psych: Psychology consult. Xanax 0.25 at bedtime. Prozac at 40 mg daily
Skin: monitor for pressure sores/rashes/lesions.
Pain: acetaminophen as needed.
Bowel: Colace and Senna, PRN bisacodyl.
Bladder: Time void, PVRs, PRN straight cath.
GI Prophylaxis: Pantoprazole
DVT Prophylaxis: mechanical and Eliquis
Pulmonary: Incentive spirometry
Safety: Continue to reinforce assistance with all transfers.
Code Status: Full code
Dispo (date/plan/equipment needs): Home with family care. Social history reviewed.
Functional and Medical Goals: Modified Independent with ADL�s, ambulation, transfers
Discharge Destination: SNF
Summary of recommendations: Patient with intraabdominal abscess with requirement for continued IV antibiotics with planned surgery for 04/15, would benefit from SNF for antibiotics management and continued therapy to improve endurance.
Intraabdominal Abscess/Peridiverticular/tubo-ovarian abscess - likely diverticular. 03/11 culture: few Pseudomonas, many ESBL K oxytoca, few S cerevisiae. On IV meropenem 500mg q8 hours through the planned procedure 04/15 and 5 days after 04/20.
Currently planned for the OR electively on 04/15 persistent tubo-ovarian/peridiverticular abscess by Dr. Griffith and Demario.
CT a/p this admit showing displaced GRAHAM drain although abscess size decreased, repeat GRAHAM drain not possible per IRAD
Bowel: Colace and Senna, PRN bisacodyl.
Bladder: Time void, PVRs, PRN straight cath.
GI Prophylaxis: Pantoprazole
DVT Prophylaxis: mechanical and Eliquis
Pulmonary: Incentive spirometry
Attending Statement:
I saw and examined the patient today. Reviewed care plan with patient, therapy, nursing, and physician publisher assistant. I agree with the above subjective and physical exam, and plan as documented by MUNIR Priest with adjustments made as necessary.
Thank you for allowing me to care for your patient. Please contact me with any questions or concerns.
[2024-04-06] MEDS: TYLENOL 650 MG PO (09:08)
--- NOTE | 2024-04-06 09:11 | PTCARENOTE ---
The patient is aaox3, vss, 97% on RA. Afib is noted on the monitor. Her left flank dressing is c/d/i. She complains of pain 'here and there' at her old drain site (left flank). She rates it a 4/10 on scale when it occurs. Tylenol given as ordered.
--- NOTE | 2024-04-06 09:12 | W.PN.HOSP.TC ---
Today's Communication/Plan
-
see bold
Assessment / Plan
Assessment / Plan
1. Paroxysmal atrial fibrillation with rapid ventricular rate
-Patient came in for RVR - was asymptomatic
-Was previously on metoprolol tartrate 12.5 mg twice a day/Eliquis
-Appreciate cardiology input, currently on metoprolol succinate 100 mg daily, HR 83-104
-Continue Eliquis
2. Peridiverticular/tubo-ovarian abscess
History of recurrent sigmoid diverticulitis
Recurrence leukocytosis
-Patient is planned to undergo surgery for persistent tubo-ovarian/peridiverticular abscess by Dr. Griffith and Demario
-GRAHAM drain showing Pseudomonas aeruginosa/ESBL Klebsiella/Saccharomyces service
-Patient was discharged on regimen of ciprofloxacin 500 twice daily/fluconazole 400 daily/Flagyl 500 Q8 on 03/20
-Patient planned to undergo surgery on 04/15
-At admission regimen changed to Merrem/fluconazole. Will need arrangement before discharge.
-CT a/p this admit showing displaced GRAHAM drain although abscess size decreased, repeat GRAHAM drain not possible per IRAD - CRS/onc human resources clerk notified
-All drains removed, ID signed off
3. Acute on Chronic sysotlic HF
Acute hypoxic resp insufficiency
-TTE showing EF 30-35%, hypokinesis of mid to apical arredondo. mod pulm HTN
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
-Currently on Entresto/Aldactone as part of GDMT
-Chest x-ray admission showing questionable pulmonary congestion
-proBNP greater than 27,000 at admission
-Patient have minimal hypoxia as well
-Appreciate cardiology input, status post IV Lasix, now on Lasix 40 mg p.o. daily
4. Recurrent urinary retention
-Patient had problem with urinary retention last admission
-Reason likely with bladder laxity from amb dysfunction/repeated admission and altered sensation with pelvic pathology
-Continues to have recurrent urinary retention, Borjas placed, then removed 04/03
-She has been able to void, continue bladder scan protocol
5. Elevated troponin
-From nonischemic myocardial injury likely
-Continue monitor
6. Bilateral pleural effusion
-Status post right thoracentesis draining 60 cc of clear yellow fluid 04/04
7. Diarrhea
-reported loose stool
-possible abx use related, monitor and check C. difficile if needed
8. Hypokalemia
Repleted and resolved
9. Dysarthria
Suspect from fatigue, weakness
Son notes it is more prominent when patient is tired and weak
Head CT upon admission on 03/28, and head CT today 04/05 negative
SPL following
DVT prophylaxis�Eliquis
Full code
Dispo - PT rec SNF, family requesting [facility], physiatry consult pending
Updated son at bedside 04/05
Total time spent to see the patient on the floor, examine the patient, review data and lab results, discuss treatment plan with patient, nursing staff around 40 minutes.
Physical Exam
General: No acute distress
HEENT: Normocephalic, Atraumatic, EOMI, MMM
Respiratory: Left basilar crackles
Cardiac: Normal S1/S2, irregularly irregular
GI: Soft, Nontender, Nondistended, Normal Bowel Sounds
Extremities: No Clubbing, Cyanosis, or Edema
Neuro: Nonfocal/Grossly Intact
Anticipated Discharge: Within 24 hours
Subjective/Interval History
-
Date of Service: April 06, 2024
Patient has been able to void. Denies chest pain, shortness of breath, or palpitations. No fever, no vomiting.
Objective Data
-
Labs:
Laboratory Results
04/06/24
04:30
Sodium 133 L
Potassium 3.7
Chloride 93 L
Carbon Dioxide 32 H
BUN 12
Creatinine 0.8
Glucose 88
Calcium 9.0
Vital Signs:
Vital Signs
Temp Pulse Resp BP Pulse Ox
97.7 F 99 16 131/86 97
04/06/24 06:51 04/06/24 07:00 04/06/24 06:51 04/06/24 06:51 04/06/24 06:51
I&O
04/05/24 04/06/24 04/07/24
06:59 06:59 06:59
Intake Total 105 / 105 225 / 225
Output Total 950 / 950 750 / 750
Balance -845 / -845 -525 / -525
--- NOTE | 2024-04-06 09:53 | PN.CDI ---
CDI
- -
CDI:
Physician Documentation Request
Admit Date: 03/29/24 02:07
Dear Doctor Do,
Clinical Indicators:
Patient admitted with acute on chronic systolic heart failure.
04/02 Magnesium sulfate 1 gm IV rider given.
Magnesium levels:
04/02/24 04/03/24
09 04:18
Magnesium 1.4 L 1.7
Based on the above, could you clarify in the progress notes, the appropriate diagnosis, if significant, that supports the above abnormalities and additional evaluation, monitoring and/or treatment rendered:
Hypomagnesemia, resolved
Abnormal lab value, clinically insignificant
Other, please specify
Use of terms such as suspected, likely, concern for, or probable (associated with a specific diagnosis that is being evaluated, monitored, or treated as if it exists) are acceptable and can be coded in the inpatient setting, when documented at the
time of discharge.
Thank you,
Adele Babb RN BSN
CDI Specialist
available via tiger text
Please use your independent medical judgment in providing your response.
--- NOTE | 2024-04-06 10:09 | CM ---
Reviewed chart. Met with Mrs. Huggins and her son to review discharge plans. Son states [facility] was in to see her and Dr. Godfrey will see her later today. [facility] Liaison can offer a bed. [facility] does not have a bed.
Awaiting decision from [facility] regarding ability to accept. Son first choice would be [facility]. Medical work-up in progress. The discharge plan is some level of inpatient rehab. Acute versus SNF when medically stable.
[2024-04-06] MEDS: MYCAMINE 105 MG IV (10:35)
[2024-04-06] MEDS: FLUSH (NSS) 2 FLUSH IV ×2 (10:35→16:17)
--- NOTE | 2024-04-06 18:30 | PTCARENOTE ---
The patient has been oob to the chair for all her meals. Her appetite has been good all shift. She has been ambulating x2 assist and a RW to the bathroom. She has generalize weakness throughout.
[2024-04-06] MEDS: XALATAN OPHTHALMIC SOLUTION 1 DROP BOTH EYES (22:03)
[2024-04-06] MEDS: XANAX 0.25 MG PO (22:03)
[2024-04-07] VITALS (8 sets, daily range): BP systolic 123–147; BP diastolic 76–106; PULSE 118–130; BMI 24.3
[2024-04-07 04:22] LABS: Blood Urea Nitrogen 13 mg/dl (7-17); Calcium 8.9 mg/dl (8.4-10.2); Carbon Dioxide 29 mmol/L (22-30); Chloride 92 mmol/L (98-107); Estimated Creatinine Clearance 46 ml/min; Glucose 90 mg/dl (70-99); Magnesium 1.6 mg/dl (1.6-2.3); Potassium 3.9 mmol/L (3.5-5.1); Sodium 133 mmol/L (135-145); eGFR > 60.00
--- NOTE | 2024-04-07 08:49 | W.PN.CD ---
Today's Communication / Plan
-
some acelerated rates of afib with activity . will increase metoprolol
remainso n eliquis
resp status and HF stable
Impression / Plan
-
BACKGROUND: 78F with hypertension, prior HFpEF, paroxysmal atrial fibrillation (on apixaban) and pelvic abscess with drain in place who presented to the emergency department with shortness of breath.
[facility]oper: Dr. Blas
Paroxysmal atrial fibrillation, presented in RVR
- Rate: rate 90s on metoprolol succinate 100 mg daily. accelerated rates with activity. will increae Toprol.
- [id number] is 5 (Age, gender, HTN and HF)
- cardioversion if still in Afib can be considered in future but would hold off at this time due to the need for additional procedures which will require temp hold of anticoagulation. Notes suggest possible surgical date 04/15/24.
- Continue apixaban 5 mg twice daily
HFpEF => New HFrEF
- Likely related to infection and fast AFib; monitor for improvement as patient's A-fib and infection are treated.
- Continue metoprolol succinate 100
- cont. low-dose Entresto (start 04/03), titration as blood pressure tolerates
- cont. spironolactone to 25 mg daily (started 04/04)
- Continue SGLT2-I
- Appears euvolemic, cont. PO lasix daily
- s/p R thoracentesis with 600 cc fluid removed today, follow up studies
HTN, controlled
-Patient will remain off enalapril and hydralazine. Patient now on Entresto
intraabdominal abscess-peridiverticular/tubo-ovarian abscess, drain in place,
-Patient has been seen by BUSINESS OBJECTS ANALYST and colorectal surgery this admission
- afebrile abx per ID
- eventual plan for surgery by Colorectal surgery ?04/15/24
- Preop assessment - Patient has increased operative risk due to Cardiomyopathy and afib but now that afib and HF stabilized on medical therapy. Considering importance of treating infection, would be reasonable to proceed with surgery understanding
increased risk. patietn would need Eliquis held 2 days prior and will need to maintain BB as precribed . Cautious use of volume. Monitor on tele. and monitor for clinical signs of HF.
.
Former smoker, continued cessation recommended
Subjective:
No chest pain shortness of breath or palpitations. A-fib rate controlled
TELE 04/05: Afib w/ rates 80-90s
DATA:
Echo this admit :
Moderately reduced left ventricular systolic function. Normal right
ventricular size and reduced systolic function of the apex
LV ejection fraction is 30-35% by visual estimate.
Hypokinesis of the mid to apical arredondo with the basal arredondo best preserved.
Moderate pulmonary hypertension. Bilateral pleural effusion present.
Compared to the prior study on 12/09/2023, the systolic dysfunction is new.
Pulmonary hypertension and pleural effusions are also new.
Lexiscan nuclear stress test, 01/29/2024:
Negative ECG for ischemia. Normal perfusion imaging. EF 67%.
Low risk study but moderate risk due to inability to exercise.
Transthoracic echocardiogram, 12/09/2023:
Normal left ventricular size with mild concentric remodeling and normal
systolic function. No regional wall motion abnormalities are seen. LV ejection
fraction is 60-65% by Genao's method of discs. Normal diastolic function.
Normal right ventricular size and function.
Normal atria.
Aortic sclerosis without stenosis.
No other significant valve abnormalities.
No evidence of pulmonary hypertension.
Physical Exam
Vital Signs/Labs
Vital Signs
Temp Pulse Resp BP Pulse Ox
98.2 F 99 18 134/94 99
04/07/24 08:02 04/07/24 05:00 04/07/24 08:02 04/07/24 03:27 04/07/24 08:02
04/06/24 04/07/24 04/08/24
06:59 06:59 06:59
Actual Weight 62.46 kg 62.324 kg
04/01/24 04:57
04/07/24 03:30
PT 24.1 Sec (11.4-14.6) H 03/28/24 21:54
INR 2.17 03/28/24 21:54
Magnesium 1.6 mg/dl (1.6-2.3) 04/07/24 03:30
03/28/24
21:54
Tja-H-Zivzcoelfyp Pept > 69092
Physical Exam
Constitutional: No acute distress and Other (NOTTAWASEPPI POTAWATOMI)
Cardiovascular: Rhythm/rate is irregular
Respiratory: Respiratory effort normal
GI: Soft
Neuro/Psych: Alert
Data Reviewed
-
Date of Service: April 07, 2024
Medical Decision Making: Reviewed Test Results
EKG: Report Reviewed by me
Medical Tests (PFT, Pathology etc): Report Reviewed by me
Labs: Labs Reviewed by me
[2024-04-07] MEDS: ENTRESTO 24 MG/26 MG 1 TAB PO ×2 (08:52→20:13)
[2024-04-07] MEDS: ALDACTONE 25 MG PO (08:52)
[2024-04-07] MEDS: LASIX 40 MG PO (08:52)
[2024-04-07] MEDS: FARXIGA 10 MG PO (08:52)
[2024-04-07] MEDS: TOPROL XL 100 MG PO (08:53)
[2024-04-07] MEDS: ELIQUIS 5 MG PO ×2 (08:53→20:13)
[2024-04-07] MEDS: TIMOPTIC 0.5% OPHTHALMIC SOLUTION 1 DROP BOTH EYES (08:53)
[2024-04-07] MEDS: MERREM 500 MG IV ×3 (08:53→23:08)
[2024-04-07] MEDS: STERILE WATER FOR INJECTION 10 ML IV ×3 (08:53→23:08)
[2024-04-07] MEDS: PROZAC 20 MG PO (08:53)
[2024-04-07] MEDS: FLUSH (NSS) 3 FLUSH IV (08:53)
--- NOTE | 2024-04-07 09:11 | W.PN.HOSP.TC ---
Today's Communication/Plan
-
Discharge tomorrow if cleared by cardiology
Assessment / Plan
Assessment / Plan
1. Paroxysmal atrial fibrillation with rapid ventricular rate
-Patient came in for RVR - was asymptomatic
-Was previously on metoprolol tartrate 12.5 mg twice a day/Eliquis
-Appreciate cardiology input, patient's HR has been elevated, metoprolol succinate increased to 150 mg p.o. daily 04/07
-Continue Eliquis
-Discharge to short-term rehab tomorrow if cleared by cardiology
2. Peridiverticular/tubo-ovarian abscess
History of recurrent sigmoid diverticulitis
Recurrence leukocytosis
-Patient is planned to undergo surgery for persistent tubo-ovarian/peridiverticular abscess by Dr. Griffith and Demario
-GRAHAM drain showing Pseudomonas aeruginosa/ESBL Klebsiella/Saccharomyces service
-Patient was discharged on regimen of ciprofloxacin 500 twice daily/fluconazole 400 daily/Flagyl 500 Q8 on 03/20
-Patient planned to undergo surgery on 04/15
-Appreciate ID input, rec meropenem and micafungin through the planned procedure and 5 days after 04/20
-CT a/p this admit showing displaced GRAHAM drain although abscess size decreased, repeat GRAHAM drain not possible per IRAD - CRS/onc lehr attendant notified
-All drains removed, ID signed off
3. Acute on Chronic sysotlic HF
Acute hypoxic resp insufficiency
-TTE showing EF 30-35%, hypokinesis of mid to apical arredondo. mod pulm HTN
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
-Currently on Entresto/Aldactone as part of GDMT
-Chest x-ray admission showing questionable pulmonary congestion
-proBNP greater than 27,000 at admission
-Patient have minimal hypoxia as well
-Appreciate cardiology input, status post IV Lasix, now on Lasix 40 mg p.o. daily
-Patient reports shortness of breath, she is not hypoxic, she is satting 95-98% on room air, suspect shortness of breath may be secondary to anxiety
4. Recurrent urinary retention
-Patient had problem with urinary retention last admission
-Reason likely with bladder laxity from amb dysfunction/repeated admission and altered sensation with pelvic pathology
-Continues to have recurrent urinary retention, Borjas placed, then removed 04/03
-She has been able to void, continue bladder scan protocol
5. Elevated troponin
-From nonischemic myocardial injury likely
-Continue monitor
6. Bilateral pleural effusion
-Status post right thoracentesis draining 60 cc of clear yellow fluid 04/04
7. Diarrhea
-reported loose stool
-possible abx use related, monitor and check C. difficile if needed
8. Hypokalemia
Repleted and resolved
9. Dysarthria
Suspect from fatigue, weakness
Son notes it is more prominent when patient is tired and weak
Head CT upon admission on 03/28, and head CT today 04/05 negative
SPL following
10. Hypomagnesemia
Repleted and resolved
DVT prophylaxis�Eliquis
Full code
Dispo - PT rec SNF, family requesting [facility] rec SNF
Updated son at bedside 04/07
Total time spent to see the patient on the floor, examine the patient, review data and lab results, discuss treatment plan with patient, nursing staff around 38 minutes.
Physical Exam
General: No acute distress
HEENT: Normocephalic, Atraumatic, EOMI, MMM
Respiratory: Left basilar crackles
Cardiac: Normal S1/S2, irregularly irregular, tachycardic rate
GI: Soft, Nontender, Nondistended, Normal Bowel Sounds
Extremities: No Clubbing, Cyanosis, or Edema
Neuro: Nonfocal/Grossly Intact
Anticipated Discharge: Within 24 hours
Subjective/Interval History
-
Date of Service: April 07, 2024
Patient reports feeling short of breath, suspect secondary to anxiety. No fever, no chest pain. No palpitations.
Objective Data
-
Labs:
Laboratory Results
04/07/24
03:30
Sodium 133 L
Potassium 3.9
Chloride 92 L
Carbon Dioxide 29
BUN 13
Creatinine 0.8
Glucose 90
Calcium 8.9
Vital Signs:
Vital Signs
Temp Pulse Resp BP Pulse Ox
98.2 F 106 18 145/96 99
04/07/24 08:02 04/07/24 08:05 04/07/24 08:02 04/07/24 08:05 04/07/24 08:02
I&O
04/06/24 04/07/24 04/08/24
06:59 06:59 06:59
Intake Total 225 / 225 480 / 480
Output Total 750 / 750 450 / 450
Balance -525 / -525 30
[2024-04-07] MEDS: FLUSH (NSS) 2 FLUSH IV ×3 (09:58→23:08)
[2024-04-07] MEDS: TOPROL XL 25 MG PO (09:58)
[2024-04-07] MEDS: MYCAMINE 105 MG IV (09:59)
--- NOTE | 2024-04-07 10:21 | CM ---
Addendum entered by Ada Aggarwal 04/07/24 14:02:
Received telephone call from [facility] they can offer a bed on 04/08/24 if medically stable. Met with Mrs. Huggins and her son to review that [facility] can accept her and [facility] does not have an available bed.
Original Note:
Reviewed chart. Met with Mrs. Huggins and her son to review discharge plans. Reviewed [facility]. determination of SNF/Rehab. Reviewed with him that [facility] does not have an available. Telephone call to [facility] Admissions to
check on status of bed. [facility] does not have an available bed. Son requested referral to be made to [facility]. Telephone call to [facility]iaison to make the referral. Sent referral. Await decision from [facility]. Medical work-up in
progress. The discharge plan is to go to SNF/Rehab.
--- NOTE | 2024-04-07 11:13 | PTCARENOTE ---
The patient is aaox3, vss. Afib is noted on the monitor. Her heart rate increases to the 140s with activity. She complains of having too many bowel movements and is requesting Imodium. She had multiple BMs throughout the night that were soft in
nature. She ambulated to bathroom x2 assist and a RW. She did get dizzy upon standing but resolved quickly. She had a soft formed BM. I explained to her that Imodium wouldn't be appropriate at this time. After she was settled back in the chair, she
asked for oxygen to be put on. Her pulse ox was 97% on RA. I asked if she felt anxious and she stated that she did.
--- NOTE | 2024-04-07 11:38 | PTCARENOTE ---
While the patient was brushing her teeth, she vomited. Her son stated that he thinks she inserted the tooth brush too far back and caused herself to vomit. He was in the room at the time. I asked her if she felt nauseous and she stated that she
wasn't.
--- NOTE | 2024-04-07 16:32 | W.PN.ID1 ---
Date of Service
Date of Service: April 07, 2024
Today's Communication
- she is currently planned for the OR electively on 04/15
- stable for dc from ID perspective when outpatient IV antibiotics arranged
Assessment / Plan
Intraabdominal Abscess - likely diverticular
- 03/11 culture: few Pseudomonas, many ESBL K oxytoca, few S cerevisiae
- c/w micafungin through the planned procedure and 5 days after 04/20
- c/w with meropenem through the planned procedure and 5 days after 04/20
- script given to immigration case worker
- picc
- she is currently planned for the OR electively on 04/15
- stable for dc from ID perspective when outpatient IV antibiotics arranged
Chief Complaint
-: Other (intraabdominal abscess)
Subjective / Review of Systems
afebrile
bp stable
tolerating current therapy
intermittent mild abdominal pain
Vital Signs / Physical Exam
Vital Signs
Vital Signs
Temp Pulse Resp BP Pulse Ox
97.4 F 109 18 130/101 94
04/07/24 14:59 04/07/24 15:00 04/07/24 14:59 04/07/24 14:57 04/07/24 14:59
Physical Exam
Constitutional: No Acute Distress and Chronically Ill
Cardiovascular: Regular Rate and S1/S2; Negative Murmur or Rub
Pulmonary: Clear and Symmetric; Negative Wheezes or Rales
Gastrointestinal: Soft, Non Tender, Non Distended and Normal Bowel Sounds
Skin: Warm and Dry; Negative Rash or Jaundice
Objective Data
Lab Data
Lab Results
04/01/24 04:57
04/07/24 03:30
PT 24.1 Sec (11.4-14.6) H 03/28/24 21:54
INR 2.17 03/28/24 21:54
Estimated Creat Clear 46 ml/min 04/07/24 03:30
Total Bilirubin 1.7 mg/dl (0.2-1.3) H 03/28/24 21:54
AST 132 U/L (14-36) H 03/28/24 21:54
ALT 35 U/L (0-35) 03/28/24 21:54
Alkaline Phosphatase 51 U/L (38-126) 03/28/24 21:54
Most recent labs reviewed.
Micro Results:
04/04/24 08:15 Body Fluid Culture - Final
Pleural Fluid No Growth After 72 Hours
Gram Stain - Final
03/29/24 04:25 MRSA Screen - Final
Nose No Methicillin Resistant Staphylococcus aureus isolated.
--- NOTE | 2024-04-07 17:32 | PTCARENOTE ---
The patient has been oob for each meal and has been ambulating back and forth to the bathroom all shift with an assist x2 with a RW.
[2024-04-07] MEDS: XALATAN OPHTHALMIC SOLUTION 1 DROP BOTH EYES (20:14)
[2024-04-07] MEDS: XANAX 0.25 MG PO (23:07)
[2024-04-08] VITALS (11 sets, daily range): BP systolic 87–147; BP diastolic 60–92; PULSE 85; O2SAT 97; BMI 23.8
--- NOTE | 2024-04-08 00:13 | PTCARENOTE ---
Pt. remains A-fib on the monitor, rate 80's-low 100's. Other VSS. Ambulates with assist x 1 & RW to BR, voided 400 ml clear nicholas urine without difficulty. Pt. sleeping.
[2024-04-08 04:03] LABS: Blood Urea Nitrogen 10 mg/dl (7-17); Calcium 8.9 mg/dl (8.4-10.2); Carbon Dioxide 33 mmol/L (22-30); Chloride 92 mmol/L (98-107); Estimated Creatinine Clearance 46 ml/min; Glucose 86 mg/dl (70-99); Magnesium 1.6 mg/dl (1.6-2.3); Potassium 3.4 mmol/L (3.5-5.1); Sodium 134 mmol/L (135-145); eGFR > 60.00
--- NOTE | 2024-04-08 07:59 | W.PN.HOSP.TC ---
Today's Communication/Plan
-
see bold
Assessment / Plan
Assessment / Plan
1. Paroxysmal atrial fibrillation with rapid ventricular rate
-Patient came in for RVR - was asymptomatic
-Was previously on metoprolol tartrate 12.5 mg twice a day/Eliquis
-Appreciate cardiology input, patient's HR improved since increasing metoprolol succinate to 150 mg p.o. daily 04/07
-Continue Eliquis
-Discharge to short-term rehab 04/11
2. Peridiverticular/tubo-ovarian abscess
History of recurrent sigmoid diverticulitis
Recurrence leukocytosis
-Patient is planned to undergo surgery for persistent tubo-ovarian/peridiverticular abscess by Dr. Griffith and Demario
-GRAHAM drain showing Pseudomonas aeruginosa/ESBL Klebsiella/Saccharomyces service
-Patient was discharged on regimen of ciprofloxacin 500 twice daily/fluconazole 400 daily/Flagyl 500 Q8 on 03/20
-Patient planned to undergo surgery on 04/15
-Appreciate ID input, rec meropenem and micafungin through the planned procedure and 5 days after 04/20
-CT a/p this admit showing displaced GRAHAM drain although abscess size decreased, repeat GRAHAM drain not possible per IRAD - CRS/onc senior restaurant manager notified
-All drains removed, ID signed off
3. Acute on Chronic sysotlic HF
Acute hypoxic resp insufficiency
-TTE showing EF 30-35%, hypokinesis of mid to apical arredondo. mod pulm HTN
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
-Currently on Entresto/Aldactone as part of GDMT
-Chest x-ray admission showing questionable pulmonary congestion
-proBNP greater than 27,000 at admission
-Patient have minimal hypoxia as well
-Appreciate cardiology input, status post IV Lasix, was on Lasix 40 mg p.o. daily
-04/08, patient's blood pressure dropped while working with PT, cardiology recommends changing Lasix to 20 mg p.o. Thursday/Thursday/Thursday
-Patient reports shortness of breath, she is not hypoxic, she is satting 95-98% on room air, suspect shortness of breath may be secondary to anxiety
4. Recurrent urinary retention
-Patient had problem with urinary retention last admission
-Reason likely with bladder laxity from amb dysfunction/repeated admission and altered sensation with pelvic pathology
-Continues to have recurrent urinary retention, Borjas placed, then removed 04/03
-She has been able to void, continue bladder scan protocol
5. Elevated troponin
-From nonischemic myocardial injury likely
-Continue monitor
6. Bilateral pleural effusion
-Status post right thoracentesis draining 60 cc of clear yellow fluid 04/04
7. Diarrhea
-reported loose stool
-possible abx use related, monitor and check C. difficile if needed
8. Hypokalemia
Repleted and resolved
9. Dysarthria
Suspect from fatigue, weakness
Son notes it is more prominent when patient is tired and weak
Head CT upon admission on 03/28, and head CT today 04/05 negative
SPL following
10. Hypomagnesemia
Repleted and resolved
DVT prophylaxis�Eliquis
Full code
Dispo - PT rec SNF, family requesting [place], physiatry rec SNF
Updated son at bedside 04/08
Total time spent to see the patient on the floor, examine the patient, review data and lab results, discuss treatment plan with patient, nursing staff around 43 minutes.
Physical Exam
General: No acute distress
HEENT: Normocephalic, Atraumatic, EOMI, MMM
Respiratory: Left basilar crackles
Cardiac: Normal S1/S2, irregularly irregular, tachycardic rate
GI: Soft, Nontender, Nondistended, Normal Bowel Sounds
Extremities: No Clubbing, Cyanosis, or Edema
Neuro: Nonfocal/Grossly Intact
Anticipated Discharge: Within 24 hours
Subjective/Interval History
-
Date of Service: April 08, 2024
Patient has been able to void. No chest pain, no palpitations. No fever, no vomiting.
Objective Data
-
Labs:
Laboratory Results
04/08/24
02:52
Sodium 134 L
Potassium 3.4 L
Chloride 92 L
Carbon Dioxide 33 H
BUN 10
Creatinine 0.8
Glucose 86
Calcium 8.9
Vital Signs:
Vital Signs
Temp Pulse Resp BP Pulse Ox
97.8 F 88 20 147/79 94
04/08/24 06:52 04/08/24 03:00 04/08/24 06:52 04/08/24 02:46 04/08/24 06:52
I&O
04/07/24 04/08/24 04/09/24
06:59 06:59 06:59
Intake Total 580 / 580 525 / 525
Output Total 450 / 450 1275 / 1275
Balance 130 / 130 -750 / -750
--- NOTE | 2024-04-08 08:19 | W.PN.CD ---
Today's Communication / Plan
-
- Continue Toprol-XL 150 mg daily.
- Continue other current cardiac medications.
- Plan for surgery by Colorectal surgery on 04/15/24; can proceed from a cardiac standpoint (relatively high cardiac risk)--potline monitor periprocedurally, use caution with volume administration.
- Continue apixaban 5 mg twice daily; hold 2 days prior to surgery.
- Cardiology will remain available on an as-needed basis; patient likely to be discharged and return for surgery.
Impression / Plan
-
BACKGROUND: 78F with hypertension, prior HFpEF, paroxysmal atrial fibrillation (on apixaban) and pelvic abscess with drain in place who presented to the emergency department with shortness of breath.
Music Leader: Will be Dr. Blas
Paroxysmal atrial fibrillation, presented in RVR
- Heart rate is fairly controlled; asymptomatic.
- Continue with rate-control strategy.
- Continue Toprol-XL 150 mg daily.
- [id number] is 5 (Age, gender, HTN and HF)
- Continue apixaban 5 mg twice daily; hold 2 days prior to surgery.
Acute HFrEF (EF 30-35%):
- Likely related to infection and A-fib with RVR; however, ischemic etiology should be ruled out at some point as an outpatient (stress test) if deemed appropriate.
- Continue Toprol-XL as above, Entresto, spironolactone, furosemide, and Farxiga.
Intraabdominal abscess-peridiverticular/tubo-ovarian abscess, drain in place,
-Patient has been seen by HIDE BUYER and colorectal surgery this admission
-Plan for surgery by Colorectal surgery on 04/15/24; can proceed from a cardiac standpoint (relatively high cardiac risk)--potline monitor periprocedurally, use caution with volume administration.
Moderate TR:
-Continue current dose of Lasix for volume management.
Pleural effusion:
- s/p R thoracentesis with 600 cc fluid removed.
HTN:
-Fairly controlled
-Continue current medication regimen as above.
Former smoker: Continued cessation recommended
Subjective:
No chest pain shortness of breath or palpitations. A-fib rate controlled
TELE 04/05: Afib w/ rates 80-90s
DATA:
Echo this admit :
Moderately reduced left ventricular systolic function. Normal right
ventricular size and reduced systolic function of the apex
LV ejection fraction is 30-35% by visual estimate.
Hypokinesis of the mid to apical arredondo with the basal arredondo best preserved.
Moderate pulmonary hypertension. Bilateral pleural effusion present.
Compared to the prior study on 12/09/2023, the systolic dysfunction is new.
Pulmonary hypertension and pleural effusions are also new.
Lexiscan nuclear stress test, 01/29/2024:
Negative ECG for ischemia. Normal perfusion imaging. EF 67%.
Low risk study but moderate risk due to inability to exercise.
Transthoracic echocardiogram, 12/09/2023:
Normal left ventricular size with mild concentric remodeling and normal
systolic function. No regional wall motion abnormalities are seen. LV ejection
fraction is 60-65% by Genao's method of discs. Normal diastolic function.
Normal right ventricular size and function.
Normal atria.
Aortic sclerosis without stenosis.
No other significant valve abnormalities.
No evidence of pulmonary hypertension.
Physical Exam
Vital Signs/Labs
Vital Signs
Temp Pulse Resp BP Pulse Ox
97.8 F 90 20 130/92 94
04/08/24 06:52 04/08/24 08:00 04/08/24 06:52 04/08/24 06:54 04/08/24 06:54
04/07/24 04/08/24 04/09/24
06:59 06:59 06:59
Actual Weight 62.324 kg 60.9 kg
04/01/24 04:57
04/08/24 02:52
PT 24.1 Sec (11.4-14.6) H 03/28/24 21:54
INR 2.17 03/28/24 21:54
Magnesium 1.6 mg/dl (1.6-2.3) 04/08/24 02:52
03/28/24
21:54
Aki-H-Mebmwhfjuio Pept > [id number]
Physical Exam
Constitutional: No acute distress and Comfortable
EENT: Anicteric
Cardiovascular: Pedal edema is absent, Systolic murmur absent, Rhythm/rate is irregular and S1S2 is normal
Respiratory: Respiratory effort normal and Lungs clear to auscul.
GI: Soft and Non tender
Neuro/Psych: Alert and Oriented
Other: Skin (Warm, dry, intact)
Data Reviewed
-
Date of Service: April 08, 2024
EKG: Tracing Personally Visualized and interpreted (EKG: A-fib)
Echo: Tracing Personally Visualized and interpreted (EF 30-35%)
Medical Tests (PFT, Pathology etc): Discussed with Family (Son (Arpit) and [id number] (Deanna) at bedside)
Labs: Labs Reviewed by me
[2024-04-08] MEDS: ELIQUIS 5 MG PO ×2 (09:07→20:19)
[2024-04-08] MEDS: FARXIGA 10 MG PO (09:08)
[2024-04-08] MEDS: ENTRESTO 24 MG/26 MG 1 TAB PO ×2 (09:08→20:19)
[2024-04-08] MEDS: KCL 40 MEQ PO (09:09)
[2024-04-08] MEDS: LASIX 40 MG PO (09:09)
[2024-04-08] MEDS: MERREM 500 MG IV ×3 (09:10→23:26)
[2024-04-08] MEDS: STERILE WATER FOR INJECTION 10 ML IV ×3 (09:10→23:26)
[2024-04-08] MEDS: PROZAC 20 MG PO (09:10)
[2024-04-08] MEDS: TOPROL XL 150 MG PO (09:11)
[2024-04-08] MEDS: TIMOPTIC 0.5% OPHTHALMIC SOLUTION 1 DROP BOTH EYES (09:11)
[2024-04-08] MEDS: FLUSH (NSS) 2 FLUSH IV ×2 (09:12→23:26)
[2024-04-08] MEDS: ALDACTONE 25 MG PO (09:13)
--- NOTE | 2024-04-08 09:45 | PTCARENOTE ---
Received patient first thing this morning resting in bed, now oob and sitting in the chair eating breakfast. The patient's son and DIL in visiting. Patient denies any complaints, plan for possible snf today and surgery planned for next week. Patient
encouraged to be oob and reinforced importance of IS in preparation for surgery.
[2024-04-08] MEDS: MYCAMINE 105 MG IV (10:19)
--- NOTE | 2024-04-08 12:36 | PTCARENOTE ---
While working with PT, BP did drop to 87/61 and patient felt dizzy. BP now 99/62. Notified Dr. Blas and forwarded his recommendations to Dr. Yu.
--- NOTE | 2024-04-08 15:30 | CM ---
Reviewed chart. Met with Mrs. Huggins and her son and [id number] to review discharge plans. Family wanted to have a referral sent to [facility] to see if they have a bed. Telephone call to [facility] Admissions to make the referral. Sent
the referral. Received telephone call from [facility] who states they do not have a bed available. Family struggling with SNF/rehab. decision. After a long discussion, family has a made a decision to go to [facility]. Telephone call to
[facility] liaison to see if they can have a bed available. Sent updated clinical with IV ABX order, PICC line and CXR to [facility]. [facility] Liaison states they need to order the IV ABX and they can not get the Micafungin until
Thursday. Updated attending physician and family. Medical work-up in progress. The discharge plan is to go to [facility] SNF on Thursday04/11/24. if medically stable.
[2024-04-08] MEDS: LASIX PO (16:52)
[2024-04-08] MEDS: XALATAN OPHTHALMIC SOLUTION 1 DROP BOTH EYES (20:20)
[2024-04-08] MEDS: XANAX 0.25 MG PO (23:26)
[2024-04-09] VITALS (9 sets, daily range): BP systolic 106–142; BP diastolic 64–92; PULSE 73; BMI 23.9
[2024-04-09 03:44] LABS: Blood Urea Nitrogen 13 mg/dl (7-17); Calcium 9.1 mg/dl (8.4-10.2); Carbon Dioxide 31 mmol/L (22-30); Chloride 94 mmol/L (98-107); Estimated Creatinine Clearance 41 ml/min; Glucose 89 mg/dl (70-99); Magnesium 1.6 mg/dl (1.6-2.3); Sodium 134 mmol/L (135-145); eGFR > 60.00
--- NOTE | 2024-04-09 05:00 | PTCARENOTE ---
Pt.s BP stable this shift, last 133/78 at 0256. OOB with assist x 1 & RW, weak when she first gets up but then improves as she walks. Noted to be in NSR with PAC's at times, still occ. runs A-fib, rate 60's-80's.
--- NOTE | 2024-04-09 08:38 | W.PN.HOSP.TC ---
Today's Communication/Plan
-
see bold
Assessment / Plan
Assessment / Plan
1. Paroxysmal atrial fibrillation with rapid ventricular rate
-Patient came in for RVR - was asymptomatic
-Was previously on metoprolol tartrate 12.5 mg twice a day/Eliquis
-Appreciate cardiology input, patient's HR improved since increasing metoprolol succinate to 150 mg p.o. daily 04/07
-Continue Eliquis
-Discharge to short-term rehab 04/11
2. Peridiverticular/tubo-ovarian abscess
History of recurrent sigmoid diverticulitis
Recurrence leukocytosis
-Patient is planned to undergo surgery for persistent tubo-ovarian/peridiverticular abscess by Dr. Griffith and Demario
-GRAHAM drain showing Pseudomonas aeruginosa/ESBL Klebsiella/Saccharomyces service
-Patient was discharged on regimen of ciprofloxacin 500 twice daily/fluconazole 400 daily/Flagyl 500 Q8 on 03/20
-Patient planned to undergo surgery on 04/15
-Appreciate ID input, rec meropenem and micafungin through the planned procedure and 5 days after 04/20
-CT a/p this admit showing displaced GRAHAM drain although abscess size decreased, repeat GRAHAM drain not possible per IRAD - CRS/onc business analyst sales operations notified
-All drains removed, ID signed off
3. Acute on Chronic sysotlic HF
Acute hypoxic resp insufficiency
-TTE showing EF 30-35%, hypokinesis of mid to apical arredondo. mod pulm HTN
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
-Currently on Entresto/Aldactone as part of GDMT
-Chest x-ray admission showing questionable pulmonary congestion
-proBNP greater than 27,000 at admission
-Patient have minimal hypoxia as well
-Appreciate cardiology input, status post IV Lasix, was on Lasix 40 mg p.o. daily
-04/08, patient's blood pressure dropped while working with PT, cardiology recommends changing Lasix to 20 mg p.o. Thursday/Thursday/Thursday
-Patient reports shortness of breath, she is not hypoxic, she is satting 95-98% on room air, suspect shortness of breath may be secondary to anxiety
4. Recurrent urinary retention
-Patient had problem with urinary retention last admission
-Reason likely with bladder laxity from amb dysfunction/repeated admission and altered sensation with pelvic pathology
-Continues to have recurrent urinary retention, Borjas placed, then removed 04/03
-She has been able to void, continue bladder scan protocol
5. Elevated troponin
-From nonischemic myocardial injury likely
-Continue monitor
6. Bilateral pleural effusion
-Status post right thoracentesis draining 60 cc of clear yellow fluid 04/04
7. Diarrhea
-reported loose stool
-possible abx use related, monitor and check C. difficile if needed
8. Hypokalemia
Repleted and resolved
9. Dysarthria
Suspect from fatigue, weakness
Son notes it is more prominent when patient is tired and weak
Head CT upon admission on 03/28, and head CT today 04/05 negative
SPL following
10. Hypomagnesemia
Repleted and resolved
DVT prophylaxis�Eliquis
Full code
Dispo - PT rec SNF, family requesting [place], physiatry rec SNF
Updated son at bedside 04/08
Total time spent to see the patient on the floor, examine the patient, review data and lab results, discuss treatment plan with patient, nursing staff around 40 minutes.
Physical Exam
General: No acute distress
HEENT: Normocephalic, Atraumatic, EOMI, MMM
Respiratory: Left basilar crackles
Cardiac: Normal S1/S2, irregularly irregular
GI: Soft, Nontender, Nondistended, Normal Bowel Sounds
Extremities: No Clubbing, Cyanosis, or Edema
Neuro: Nonfocal/Grossly Intact
Anticipated Discharge: 24 - 48 hours
Subjective/Interval History
-
Date of Service: April 09, 2024
Denies chest pain, palpitations. No fever, no vomiting.
Objective Data
-
Labs:
Laboratory Results
04/09/24
03:01
Sodium 134 L
Potassium 4.0
Chloride 94 L
Carbon Dioxide 31 H
BUN 13
Creatinine 0.9
Glucose 89
Calcium 9.1
Vital Signs:
Vital Signs
Temp Pulse Resp BP Pulse Ox
97.1 F 71 16 133/78 97
04/09/24 08:35 04/09/24 03:00 04/09/24 08:35 04/09/24 02:56 04/09/24 08:35
I&O
04/08/24 04/09/24 04/10/24
06:59 06:59 06:59
Intake Total 525 / 525 480 / 480
Output Total 1275 / 1275
Balance -750 / -750 480 / 480
[2024-04-09] MEDS: ALDACTONE 25 MG PO (09:32)
[2024-04-09] MEDS: FARXIGA 10 MG PO (09:32)
[2024-04-09] MEDS: ENTRESTO 24 MG/26 MG 1 TAB PO ×2 (09:32→19:25)
[2024-04-09] MEDS: PROZAC 20 MG PO (09:33)
[2024-04-09] MEDS: TOPROL XL 150 MG PO (09:33)
[2024-04-09] MEDS: ELIQUIS 5 MG PO ×2 (09:33→19:25)
[2024-04-09] MEDS: MERREM 500 MG IV ×3 (09:35→23:20)
[2024-04-09] MEDS: TIMOPTIC 0.5% OPHTHALMIC SOLUTION 1 DROP BOTH EYES (09:35)
[2024-04-09] MEDS: STERILE WATER FOR INJECTION 10 ML IV ×3 (09:35→23:20)
[2024-04-09] MEDS: FLUSH (NSS) 3 FLUSH IV (09:36)
[2024-04-09] MEDS: FLUSH (NSS) 1 FLUSH IV ×2 (10:56→16:25)
[2024-04-09] MEDS: MYCAMINE 105 MG IV (10:56)
--- NOTE | 2024-04-09 13:40 | PTCARENOTE ---
recived patient this am OOB in chair, tolerating being OOB very well. has ambulated to BR with walker and assist x 1. Monitor shows Afib, VSS. family at bedsied. patient voices no concerns at this time.
[2024-04-09] MEDS: TYLENOL 650 MG PO ×2 (15:42→19:26)
--- NOTE | 2024-04-09 18:18 | PTCARENOTE ---
patient has been OOB for breakfast and dinner, good appetite. patient has been able to use rolling walker with assist x 1 to ambulate to BR, rena. well. daughter in room visiting.
[2024-04-09] MEDS: XALATAN OPHTHALMIC SOLUTION 1 DROP BOTH EYES (19:26)
[2024-04-09] MEDS: XANAX 0.25 MG PO (23:20)
[2024-04-10] VITALS (8 sets, daily range): BP systolic 133–149; BP diastolic 62–98; BMI 23.8
--- NOTE | 2024-04-10 05:08 | PTCARENOTE ---
CHG wipes completed by RN
[2024-04-10] MEDS: MERREM 500 MG IV ×3 (07:52→23:16)
[2024-04-10] MEDS: STERILE WATER FOR INJECTION 10 ML IV ×3 (07:53→23:16)
[2024-04-10] MEDS: FLUSH (NSS) 2 FLUSH IV (07:53)
[2024-04-10] MEDS: ALDACTONE 25 MG PO (07:53)
[2024-04-10] MEDS: TOPROL XL 150 MG PO (07:54)
[2024-04-10] MEDS: PROZAC 20 MG PO (07:54)
[2024-04-10] MEDS: ENTRESTO 24 MG/26 MG 1 TAB PO ×2 (07:54→20:14)
[2024-04-10] MEDS: TIMOPTIC 0.5% OPHTHALMIC SOLUTION 1 DROP BOTH EYES (07:55)
[2024-04-10] MEDS: ELIQUIS 5 MG PO ×2 (07:55→20:14)
[2024-04-10] MEDS: FARXIGA 10 MG PO (07:55)
--- NOTE | 2024-04-10 08:43 | W.PN.HOSP.TC ---
Today's Communication/Plan
-
Discharge tomorrow
Assessment / Plan
Assessment / Plan
1. Paroxysmal atrial fibrillation with rapid ventricular rate
-Patient came in for RVR - was asymptomatic
-Was previously on metoprolol tartrate 12.5 mg twice a day/Eliquis
-Appreciate cardiology input, patient's HR improved since increasing metoprolol succinate to 150 mg p.o. daily 04/07
-Continue Eliquis
-Discharge to short-term rehab 04/11 once they have the micafungin
2. Peridiverticular/tubo-ovarian abscess
History of recurrent sigmoid diverticulitis
Recurrence leukocytosis
-Patient is planned to undergo surgery for persistent tubo-ovarian/peridiverticular abscess by Dr. Griffith and Demario
-GRAHAM drain showing Pseudomonas aeruginosa/ESBL Klebsiella/Saccharomyces service
-Patient was discharged on regimen of ciprofloxacin 500 twice daily/fluconazole 400 daily/Flagyl 500 Q8 on 03/20
-Patient planned to undergo surgery on 04/15
-Appreciate ID input, rec meropenem and micafungin through the planned procedure and 5 days after 04/20
-CT a/p this admit showing displaced GRAHAM drain although abscess size decreased, repeat GRAHAM drain not possible per IRAD - CRS/onc pipefitter welder notified
-All drains removed, ID signed off
3. Acute on Chronic sysotlic HF
Acute hypoxic resp insufficiency
-TTE showing EF 30-35%, hypokinesis of mid to apical arredondo. mod pulm HTN
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
-Currently on Entresto/Aldactone as part of GDMT
-Chest x-ray admission showing questionable pulmonary congestion
-proBNP greater than 27,000 at admission
-Patient have minimal hypoxia as well
-Appreciate cardiology input, status post IV Lasix, was on Lasix 40 mg p.o. daily
-04/08, patient's blood pressure dropped while working with PT, cardiology recommends changing Lasix to 20 mg p.o. Thursday/Thursday/Thursday
-Patient reports shortness of breath, she is not hypoxic, she is satting 95-98% on room air, suspect shortness of breath may be secondary to anxiety
4. Recurrent urinary retention
-Patient had problem with urinary retention last admission
-Reason likely with bladder laxity from amb dysfunction/repeated admission and altered sensation with pelvic pathology
-Continues to have recurrent urinary retention, Borjas placed, then removed 04/03
-She has been able to void, continue bladder scan protocol
5. Elevated troponin
-From nonischemic myocardial injury likely
-Continue monitor
6. Bilateral pleural effusion
-Status post right thoracentesis draining 60 cc of clear yellow fluid 04/04
7. Diarrhea
-reported loose stool
-possible abx use related, monitor and check C. difficile if needed
8. Hypokalemia
Repleted and resolved
9. Dysarthria
Suspect from fatigue, weakness
Son notes it is more prominent when patient is tired and weak
Head CT upon admission on 03/28, and head CT today 04/05 negative
SPL following
10. Hypomagnesemia
Repleted and resolved
DVT prophylaxis�Eliquis
Full code
Dispo - PT rec SNF, family requesting [facility], physiatry rec SNF
Updated son at bedside 04/08
Total time spent to see the patient on the floor, examine the patient, review data and lab results, discuss treatment plan with patient, nursing staff around 39 minutes.
Physical Exam
General: No acute distress
HEENT: Normocephalic, Atraumatic, EOMI, MMM
Respiratory: Left basilar crackles
Cardiac: Normal S1/S2, irregularly irregular
GI: Soft, Nontender, Nondistended, Normal Bowel Sounds
Extremities: No Clubbing, Cyanosis, or Edema
Neuro: Nonfocal/Grossly Intact
Anticipated Discharge: Within 24 hours
Subjective/Interval History
-
Date of Service: April 10, 2024
Patient reports feeling well. No chest pain, shortness of breath, or palpitations. No fever, no vomiting. She is voiding.
Objective Data
-
Vital Signs:
Vital Signs
Temp Pulse Resp BP Pulse Ox
97.5 F 63 20 149/93 97
04/10/24 07:07 04/10/24 07:54 04/10/24 07:07 04/10/24 07:54 04/10/24 07:07
I&O
04/09/24 04/10/24 04/11/24
06:59 06:59 06:59
Intake Total 480 / 480 345 / 345
Output Total 250 / 250
Balance 480 / 480 95 / 95
[2024-04-10] MEDS: MYCAMINE 105 MG IV (10:31)
[2024-04-10] MEDS: FLUSH (NSS) 1 FLUSH IV (16:21)
--- NOTE | 2024-04-10 17:42 | PTCARENOTE ---
received patient this am in bed, wanted to go to BR, ambulated to BR with walker. rena. well. voided in BR and had small BM. returned back to the chair where she ate breakfast, appetite ok. monitor shows sinus arrhythmia, VSS, right PICC line able to
flush both ports,left flank dsg. changed. family at bedside.
[2024-04-10] MEDS: XANAX 0.25 MG PO (23:16)
[2024-04-10] MEDS: XALATAN OPHTHALMIC SOLUTION 1 DROP BOTH EYES (23:16)
--- NOTE | 2024-04-11 00:09 | PTCARENOTE ---
assumed care of patient at the change of shift. AAOx3. SITKA. ambulating to the bathroom with a standby assist/rolling walker. steady on her feet; generalized weakness noted. SR/SA with PACs. appears to be Afib at times. 60s-80s. bp stable. patient
denies any pain. reviewed plan of care with patient and verbalized understanding. call parrish within reach. calls appropriately.
[2024-04-11 03:53] VITALS: BP 142/78
[2024-04-11 04:21] LABS: Hematocrit 38.8 % (37.0-47.0); Hemoglobin 13.3 g/dL (12.0-16.0); Mean Corp Hgb Conc. 34.3 g/dL (33.0-37.0); Mean Corpuscular Hgb 29.8 pg (27.0-31.0); Mean Corpuscular Volume 86.8 fL (81.0-99.0); Mean Platelet Volume 11.3 fL (7.4-10.4); Platelet Count 284 10^3/uL (130-400); Red Blood Cell Count 4.47 10^6/uL (4.20-5.40); Red Cell Dist. Width 14.6 % (11.5-14.5); White Blood Cell Count 8.1 10^3/uL (4.8-10.8)
[2024-04-11 04:45] LABS: Blood Urea Nitrogen 6 mg/dl (7-17); Calcium 9.3 mg/dl (8.4-10.2); Carbon Dioxide 26 mmol/L (22-30); Chloride 99 mmol/L (98-107); Estimated Creatinine Clearance 53 ml/min; Glucose 90 mg/dl (70-99); Magnesium 1.7 mg/dl (1.6-2.3); Potassium 3.6 mmol/L (3.5-5.1); Sodium 135 mmol/L (135-145); eGFR > 60.00
[2024-04-11 06:00] VITALS: BMI 23.4
[2024-04-11 07:00] VITALS: BP 132/85
[2024-04-11] MEDS: TOPROL XL 150 MG PO (08:52)
[2024-04-11] MEDS: ENTRESTO 24 MG/26 MG 1 TAB PO (08:53)
[2024-04-11] MEDS: FARXIGA 10 MG PO (08:53)
[2024-04-11] MEDS: ELIQUIS 5 MG PO (08:53)
[2024-04-11] MEDS: PROZAC 20 MG PO (08:53)
[2024-04-11] MEDS: MERREM 500 MG IV (08:54)
[2024-04-11] MEDS: ALDACTONE 25 MG PO (08:54)
[2024-04-11] MEDS: TIMOPTIC 0.5% OPHTHALMIC SOLUTION 1 DROP BOTH EYES (08:55)
--- NOTE | 2024-04-11 09:15 | W.PN.HOSP.TC ---
Today's Communication/Plan
-
d/c to snf
Assessment / Plan
Assessment / Plan
1. Paroxysmal atrial fibrillation with rapid ventricular rate
-Patient came in for RVR - was asymptomatic
-Was previously on metoprolol tartrate 12.5 mg twice a day/Eliquis
-cardiology help appreciated and patient to be discharged on toprol xl 150mg/d and eliquis 5mg BID (hold onwards of 04/13 for surgery on 04/15)
2. Peridiverticular/tubo-ovarian abscess
History of recurrent sigmoid diverticulitis
Recurrence leukocytosis
-Patient is planned to undergo surgery for persistent tubo-ovarian/peridiverticular abscess by Dr. Griffith and Demario
-GRAHAM drain showing Pseudomonas aeruginosa/ESBL Klebsiella/Saccharomyces service
-Patient was discharged on regimen of ciprofloxacin 500 twice daily/fluconazole 400 daily/Flagyl 500 Q8 on 03/20
-CT a/p this admit showing displaced GRAHAM drain although abscess size decreased, repeat GRAHAM drain not possible per IRAD - CRS/onc roof technician notified
-All drains removed, ID signed off
-Patient planned to undergo surgery on 04/15
-Appreciate ID input, rec meropenem and micafungin through the planned procedure and 5 days after 04/20
3. Acute on Chronic sysotlic HF
Acute hypoxic resp insufficiency
-TTE showing EF 30-35%, hypokinesis of mid to apical arredondo. mod pulm HTN
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
-Chest x-ray admission showing questionable pulmonary congestion
-proBNP greater than 27,000 at admission
-Patient have minimal hypoxia as well
-Appreciate cardiology input, status post IV Lasix, was on Lasix 40 mg p.o. daily
--Currently on Entresto/Aldactone/dapagliflozin as part of GDMT
-04/08, patient's blood pressure dropped while working with PT, cardiology recommends changing Lasix to 20 mg p.o. Thursday/Thursday/Thursday
4. Recurrent urinary retention
-Patient had problem with urinary retention last admission
-Reason likely with bladder laxity from amb dysfunction/repeated admission and altered sensation with pelvic pathology
-Continues to have recurrent urinary retention, Borjas placed, then removed 04/03
-She has been able to void, continue bladder scan protocol
5. Elevated troponin
-From nonischemic myocardial injury likely
-Continue monitor
6. Bilateral pleural effusion
-Status post right thoracentesis draining 60 cc of clear yellow fluid 04/04
7. Diarrhea - Improved
-reported loose stool
-possible abx use related
8. Hypokalemia
-Repleted and resolved
9. Dysarthria
Son notes it is more prominent when patient is tired and weak
Head CT upon admission on 03/28, and head CT today 04/05 negative
SPL following
10. Hypomagnesemia
-Repleted and resolved
DVT prophylaxis�Eliquis
Full code
Anticipated Discharge: Today
Subjective/Interval History
-
Date of Service: April 11, 2024
no new complains overnight
no abd pain/nausea/vomiting/fever
Objective Data
-
Labs:
Laboratory Results
04/11/24
03:52
WBC 8.1
Hgb 13.3
Hct 38.8
Plt Count 284
Sodium 135
Potassium 3.6
Chloride 99
Carbon Dioxide 26
BUN 6 L
Creatinine 0.7
Glucose 90
Calcium 9.3
Vital Signs:
Vital Signs
Temp Pulse Resp BP Pulse Ox
97.5 F 65 16 132/85 98
04/11/24 07:02 04/11/24 08:54 04/11/24 07:02 04/11/24 08:54 04/11/24 07:02
I&O
04/10/24 04/11/2424
06:59 06:59 06:59
Intake Total 345 / 345 340 / 340
Output Total 250 / 250 1450 / 1450
Balance 95 / 95 -1110 / -1110
Review of Systems
-
Respiratory: Reports No Symptoms
Cardiac: Reports No Symptoms
Abdomen/GI: Reports No Symptoms
Physical Exam
-
General: Comfortable; Negative Respiratory Distress
HEENT: Negative Oxygen
Neuro: Awake, Alert, Oriented and No Motor Deficits
--- NOTE | 2024-04-11 09:32 | W.HF.CON ---
Heart Failure
- LV Function
Left ventricular function study result: LV Ejection fraction </= 35%
Ejection Fraction Percentage: 30-35
- ARNI
Patient already on ARNI: Yes
- ACEI/ARB
Patient already on ACEI/ARB: No
Heart Failure ACEI/ARB Not Indicated: Patient ordered/on ARNI
- Beta Prashant
Patient already on Evidence Based Beta Prashant: Yes
- Mineralocorticord Receptor Antagonist
Patient already on MRA: Yes
- SGLT-2 Inhibitor
Patient already on SGLT-2 Inhibitor: Yes
- Afib Anticoagulation
Patient already on Anticoagulation for Afib: Yes
- NYHA CHF Classification
NYHA CHF Classification Level: Class III - Symptoms w/ min exertion, interferes w/ nml daily activity
- ACC/AHA Stage
ACC/AHA Stage: Stage C: Symptomatic Heart Failure
[2024-04-11] MEDS: LASIX 20 MG PO (09:41)
[2024-04-11] MEDS: STERILE WATER FOR INJECTION 10 ML IV (09:44)
[2024-04-11] MEDS: MYCAMINE 105 MG IV (10:43)
[2024-04-11 11:48] VITALS: BP 130/72
--- NOTE | 2024-04-11 13:54 | PTCARENOTE ---
Discharge report called to [facility] Lion Lima RN [phone] . IV team notified of discharge prior to leaving. Son at bedside updated on plan of care.
--- NOTE | 2024-04-11 16:49 | W.DCSUMMARY ---
Discharge Summary
Discharge Data
Date of Admission: 03/29/24
Date of Discharge: 04/11/24
-
Pending Results: No
Hospital Course
Discharging Physician : Dr Mohit Guo
Disposition : SNF rehab
Primary care physician :
Principal Discharge diagnosis :
Paroxysmal atrial fibrillation with rapid ventricular rate
Peridiverticular/tubo-ovarian abscess with drain displacement
Acute on chronic systolic congestive heart failure
Acute hypoxic respiratory insufficiency
Urinary retention
Elevated troponin from nonischemic myocardial injury
Bilateral pleural effusion
Hypokalemia
Dysarthria
Chronic Discharge diagnosis :
Moderate tricuspid regurgitation
Essential hypertension
Former smoker
Hospital Course :
Patient is an 78-year-old female with admission past medical history was sent from [facility] facility after patient was noted to having new onset of shortness of breath and rapid heart rate. Patient has have a complex medical course for last
few months due to pelvic abscess and is planned to undergo hysterectomy and resection of MSAS by colorectal surgery and oncological gynecology. In ER patient was noted to be hypoxic requiring 4 L oxygen support. EKG was showing patient in A-fib
with minimal troponin elevation chest x-ray was showing bilateral pleural effusion with likely pulmonary edema/congestion. Patient was noted to having worsening leukocytosis as well. Patient was diagnosed to having paroxysmal A-fib with rapid
ventricular rate was started on IV Cardizem drip, cardiology was involved in care and was following along. Post improvement of heart rate patient was discharged on oral Toprol/Eliquis therapy. For patient hypoxia patient was started on IV
diuretics as there was clinical concern of volume overload. A follow-up echocardiogram showed a new drop in ejection fraction to 30 to 35% with hypokinesis of apical arredondo. Cardiology felt decline in EF related to tachycardia. Patient was started
on GDMT as blood pressure allowed. Patient underwent thoracentesis on surgical request and was able to be drained only 60 cc of clear fluid on right side. Post diuresis patient hypoxia resolved and was able to be weaned off of oxygen. Patient is
planned to undergo peridiverticular/tubo-ovarian abscess resection and was considered high risk. Per patient pelvic abscess patient had a repeat CT abdomen pelvis which showed a displaced GRAHAM drain, repeat drain placement was not visible as most of
the abscess was drained. Patient was maintained on IV Merrem/micafungin and being discharged on regimen per ID recommendation. Patient to be maintained on this regimen 5 days after the surgery which is on 04/15. Patient also was noted to have
some dysarthria although pronounced when patient was fatigued/tired. A CT head did not show any new CVA. Patient also had some antibiotic use related diarrhea which resolved as well. Patient was discharged to [facility] facility for rehab at
this point.
Important imaging findings :
None
Procedure findings :
None
Discharge Plan
-
Patient Disposition: Fpc/SNF
Discharge Diagnosis/Procedures: Atrial fibrillation with rapid ventricular response, congestive heart failure, intra-abdominal abscess, recurrent urinary retention, hypokalemia, hypomagnesemia
Condition: Fair
Diet: Low Fat, Low Cholesterol and 2 Gram Sodium
Activity: As tolerated
Driving Restrictions: No driving
Bathing Restrictions: OK to Shower
Instructions: *CBC Heart Failure Instructions
Referrals:
[facility] [Other] (FAX [phone])
Cait Mason CRNP [Specified Professional Personl] - 04/27/24 3:00 pm
Prince Maldonado MD [Family Provider] - in one week
Prescriptions:
New
spironolactone 25 mg Tablet
25 mg PO DAILY Qty: 30 0RF
Entresto 24-26 mg Tablet
1 tab PO BID Qty: 30 0RF
dapagliflozin propanediol 10 mg Tablet
10 mg PO DAILY Qty: 30 0RF
metoprolol succinate 100 mg Tablet Extended Release 24 Hr
150 mg PO DAILY Qty: 30 0RF
meropenem 500 mg Recon Soln
500 mg IV Q8H Qty: 10 0RF
Rx Instructions:
Continue 5 days after the surgery on 04/15
Micafungin Sodium [Mycamine] 100 MG
Dextrose 5%/Water 100 ml [D5w] 100 ML
105 mls/hr IV DAILY@1000
Reason for use: Continue 5 days after surgery on 04/15
Ordered By: Mohit Guo MD
Last Taken: 04/11/24 10:43 105 mls
alprazolam [Xanax] 0.25 mg tablet
0.25 mg PO HS Qty: 10 0RF
alprazolam [Xanax] 0.25 mg tablet
0.25 mg PO BID PRN (Reason: anxiety) Qty: 10 0RF
Continued
timolol maleate 0.5 % Gel Forming Solution
1 drp BOTH EYES DAILY
cholecalciferol (vitamin D3) [Vitamin D3] 50 mcg (2,000 unit) Tablet
50 mcg PO MOTUWETHFR
Culturelle 10 billion cell Capsule
1 cap PO DAILY
fluoxetine 20 mg Capsule
20 mg PO DAILY
furosemide 20 mg tablet
20 mg PO MOWEFR
omeprazole 40 mg capsule,delayed release(DR/EC)
40 mg PO DAILY 30 Days Qty: 30 0RF
latanoprost 0.005 % Drops
1 drp BOTH EYES HS
loperamide 2 mg Tablet
2 mg PO [id number] PRN (Reason: diarrhea)
magnesium hydroxide [Milk of Magnesia] 400 mg/5 mL Suspension
30 ml PO [id number] PRN (Reason: no bm 3 days)
bisacodyl [Dulcolax (bisacodyl)] 10 mg Suppository
10 mg KS DAILYPRN PRN (Reason: mom ineffective after 24 hours)
Fleet Enema 19-7 gram/118 mL Enema
118 ml KS DAILYPRN PRN (Reason: dulcolax ineffective after 24 hrs)
Eliquis 5 mg Tablet
5 mg PO BID Qty: 60 0RF
Rx Instructions:
HOLD FROM 04/13 Morning dose for planned surgery on 04/15
Discontinued
loperamide 2 mg Tablet
4 mg PO Q6HPRN PRN (Reason: diarrhea )
acetaminophen [Tylenol Extra Strength] 500 mg Tablet
1,000 mg PO Q4HPRN MDD 3000 mg PRN (Reason: mild pain/temp >100)
metoprolol tartrate 25 mg Tablet
12.5 mg PO BID
ciprofloxacin HCl 500 mg Tablet
500 mg PO BID 13 Days Qty: 26 0RF
Rx Instructions:
To continue through surgery date Apr 01 then stop.
fluconazole 200 mg Tablet
400 mg PO DAILY 12 Days Qty: 24 0RF
Rx Instructions:
To continue through surgery date Apr 01 then stop
enalapril maleate [Vasotec] 20 mg tablet
40 mg PO DAILY 30 Days Qty: 60 0RF
alprazolam 0.25 mg Tablet
0.25 mg PO BIDPRN PRN (Reason: anxiety) Qty: 10 0RF
ondansetron HCl 4 mg Tablet
4 mg PO Q8HPRN PRN (Reason: nausea)
hydralazine 25 mg Tablet
25 mg PO TID
Rx Instructions:
take with 50mg for total of 75mg
potassium chloride 20 mEq Tablet Extended Release
20 meq PO DAILY
metronidazole 500 mg tablet
500 mg PO Q8H
Rx Instructions:
To continue through surgery date Apr 01 then stop
alprazolam [Xanax] 0.25 mg tablet
0.25 mg PO HS
hydralazine 50 mg tablet
50 mg PO TID
Rx Instructions:
take with 25mg for total of 75mg
Discharge Orders:
Discharge Patient (As Directed); Ordered 04/11/24
Ordered By: Mohit R. Guo
Care Plan Goals
Care Plan Goals:
Problem: Readiness for enhanced knowledge related to diagnosis and treatment plan
Goal: Understand your diagnosis and treatment plan needs, including medications if applicable.
Instructions: Know your diagnosis, underlying causes and treatment plan options, including medications if applicable. Consult with your health care team to learn about your diagnosis and treatment plan, including medications if applicable.
Discharge Date and Time
Discharge Date/Time: 04/11/24 15:00
Print Language: ICELANDIC
== END 2024-04-11 15:00 | DRG 291 ==
LOC: IVU 02:07
PROVIDERS: Family Medicine; Radiology Vascular & Interventional Radiology; Student in an Organized Health Care Education/Training Program; ADMITTING PHYSICIAN Internal Medicine; ATTENDING PHYSICIAN Hospitalist; CONSULT PHYSICIAN Physical Medicine & Rehabilitation; EMERGENCY PHYSICIAN Emergency Medicine; FAMILY PHYSICIAN Internal Medicine; OTHER PHYSICIAN Internal Medicine; OTHER PHYSICIAN Obstetrics & Gynecology Gynecologic Oncology; OTHER PHYSICIAN Student in an Organized Health Care Education/Training Program
PROC: 02HV33Z Insertion of Infusion Device into Superior Vena Cava, Percutaneous Approach (ICD-10-PCS; 2024-04-01)
PROC: 0W993ZZ Drainage of Right Pleural Cavity, Percutaneous Approach (ICD-10-PCS; 2024-04-04)
DX: I13.0 Hypertensive heart and chronic kidney disease with heart failure and stage 1 through stage 4 chronic kidney disease, or unspecified chronic kidney disease (principal); I50.23 Acute on chronic systolic (congestive) heart failure; K65.1 Peritoneal abscess; E87.1 Hypo-osmolality and hyponatremia; J91.8 Pleural effusion in other conditions classified elsewhere; K52.1 Toxic gastroenteritis and colitis; I48.0 Paroxysmal atrial fibrillation; I5A Non-ischemic myocardial injury (non-traumatic); N18.31 Chronic kidney disease, stage 3a; R33.8 Other retention of urine; R09.02 Hypoxemia; R06.89 Other abnormalities of breathing; T36.8X5A Adverse effect of other systemic antibiotics, initial encounter; E87.6 Hypokalemia; E83.42 Hypomagnesemia; R47.1 Dysarthria and anarthria; K21.9 Gastro-esophageal reflux disease without esophagitis; Z87.891 Personal history of nicotine dependence; Z79.899 Other long term (current) drug therapy; Z79.01 Long term (current) use of anticoagulants; Z11.52 Encounter for screening for COVID-19
CPT/HCPCS: 88305; 32555; 70450; 71045; 71046; 74177; 80048; 80053; 82945; 83735; 83880; 84145; 84157; 84484; 85025; 85027; 85610; 87015; 87070; 87205; 87811; 88112; 89051; 92523; 93005; 93306; 96374; 96375; 97110; 97116; 97163; 97167; 97530; 97535; 99291; J2185; J2997; Q9967

== ENCOUNTER 2024-04-14 13:24 | Inpatient (IN) | payer MEDICARE, SELFPAY ==
[2024-04-14 13:46] VITALS: BMI 24.1
[2024-04-14 13:49] VITALS: BP 162/97
--- NOTE | 2024-04-14 15:09 | HPS.HSE ---
Family Physician
-
Family Physician: Prince Maldonado
Chief Complaint
-
preop surgery
History of Present Illness
78-year-old female presents for a bowel prep prior to her low anterior resection is scheduled with Dr. Griffith and Dr. Crawford tomorrow morning. The patient had originally been seen in consult by Dr. Griffith on 02/24/2024 due to a recurrent pelvic
abscess either due to diverticulitis or tubo-ovarian abscess. It was decided between Dr. Crawford and Dr. Griffith that the patient would need to go a low anterior resection given her findings. The patient has been admitted prior to surgery in order
to undergo a bowel prep as well as preop lab work.
Medical History
Past Medical History
Past Medical History: Reports Other (Arrhythmias (Atrial fibrillation), HTN and Other (Chronic kidney disease, glaucoma))
Past Surgical History: Reports Other (Cholecystectomy and Other (L Pelvic Abscess Drainage, Endometrial Biopsy))
Social History
Tobacco: Former Smoker
Alcohol: Occasional
Drug: None
Family History
Family History: Not pertinent
Allergies / Home Medications
Allergies reflects when Allergies were last updated in [facility].
Home Medications with original date entered in [facility]
Allergy/Medication List:
stomach cramps
lisinopril
abdominal cramping
[unknown drug]
Unknown
Home Meds
Confirmed
Prescription Monitoring Program
MEDICATIONS (INSTRUCTIONS)
LAST TAKEN
Active
alprazolam [Xanax]
0.25 mgPOBIDPRNanxiety#10 tabs
Unknown
alprazolam [Xanax]
0.25 mgPOHS#10 tabs
Unknown
apixaban [Eliquis]
5 mgPOBID#60 tabs
04/12/24
bisacodyl [Dulcolax (bisacodyl)]
10 mgPRDAILYPRNPRNmom ineffective after 24 hours
Unknown
cholecalciferol (vitamin D3) [Vitamin D3]
50 mcgPOMOTUWETHFRsupplement
04/14/24
Culturelle
1 capPODAILYSupplement
04/14/24
dapagliflozin propanediol
10 mgPODAILYHeart disease/condition#30 tabs
04/14/24
Fleet Enema
118 mlPRDAILYPRNPRNdulcolax ineffective after 24 hrs
Unknown
fluoxetine
20 mgPODAILYMental Health/Anxiety
04/14/24
furosemide
20 mgPOMOWEFRFluid Retention/Swelling
04/14/24
latanoprost
1 drpBOTH EYESHSEye Condition
04/14/24
loperamide
2 [id number]
Unknown
magnesium hydroxide [Milk of Magnesia]
30 [id number] bm 3 days
Unknown
meropenem
500 ltCQG3Z#10 ea
04/14/24
metoprolol succinate
150 mg(1.5 x 100 mg)PODAILYHeart disease/condition#30 tabs
04/14/24
Micafungin Sodium [Mycamine] 100 mg
105mls/hrIVDAILY@1000Continue 5 days after surgery on 04/15
Unknown
omeprazole
40 [id number] days#30 caps
04/14/24
sacubitril-valsartan [Entresto]
1 tabPOBIDHeart disease/condition#30 tabs
04/14/24
spironolactone
25 mgPODAILYHeart disease/condition#30 tabs
04/14/24
timolol maleate
1 drpBOTH EYESDAILYeye condition
04/14/24
Problems
Review of Systems
-
History Source: Patient
A 12 point ROS was completed and negative except as noted: Yes
Physical Exam
Vital Signs
Vital Signs
Temp Pulse Resp BP Pulse Ox
97.5 F 95 16 162/97 96
04/14/24 13:49 04/14/24 13:49 04/14/24 13:49 04/14/24 13:49 04/14/24 13:49
Physical Exam
General: Well Developed, Well Nourished and No Apparent Distress
GI: Soft, Non Tender and Non Distended
Skin: Warm and Dry
Neuro: AO x 3
Psych: Calm
Laboratory Results
-
pending
Data Reviewed
-
Old Records: Reviewed
Impression/Plan
-
IMPRESSION: 78-year-old female with a past medical history of pelvic abscess either gynecologic or diverticular in origin
PLAN:
-Clears today n.p.o. at midnight
-Preop medications ordered
-IV antibiotics prior to surgery
-Bowel prep today
-Preop lab work ordered
[2024-04-14 15:20] VITALS: BP 137/82
[2024-04-14 15:53] LABS: INR 1.11; PT 14.8 Sec (11.4-14.6)
[2024-04-14 15:54] LABS: APTT 37.1 Sec (23.4-35.0)
[2024-04-14 16:03] LABS: Blood Urea Nitrogen 9 mg/dl (7-17); Calcium 9.3 mg/dl (8.4-10.2); Carbon Dioxide 27 mmol/L (22-30); Chloride 100 mmol/L (98-107); Estimated Creatinine Clearance 53 ml/min; Glucose 80 mg/dl (70-99); Potassium 3.3 mmol/L (3.5-5.1); Sodium 138 mmol/L (135-145); eGFR > 60.00
[2024-04-14] MEDS: NULYTELY SOLUTION 4 LITERS PO (16:30)
--- NOTE | 2024-04-14 16:45 | W.CON.GYNONC ---
Chief Complaint
-
pelvic abcess (Diverticular vs TOA)
History of Present Illness
78yo WF menopausal since age 48 who does not usually see quality specialist with a history of a TOA vs diverticular abscess starting back in November , she was sent to the ED back in January after an elevated white count on outpatient labs. Patient was
admitted in November for a similar abscess. At that time, it was thought to be a TOA. It was drained by IR and grew Citrobacter, Klebsiella and S. viridans grew from the abscess. Patient completed 2 weeks of Augmentin on discharge. There were no
malignant cells on cytology from the abscess.
[facility]cer evaluation by Dr Eldridge done at that time, She also had a thickened endometrium on pelvic US. D&C was attempted, but only EMB was completed secondary to cervical stenosis. Pathology showed fragments of endocervical polyp and fragments of mucus,
endocervical glands and squamous epithelium with atrophy but no endometrial tissue. Note she has no post menopausal bleeding, and no discharge.
Patient followed up with [facility] and a consult with colorectal. Surgical removal had been considered, I had been contacted by Dr. Chaparro
She reports that that since the weekend she has noticed an increase in her left lower quadrant pain. The pain improves with Tylenol. She denies postmenopausal bleeding. While in the hospital she has had some chills and rigors associated with a
fever last night. An aspiration was performed yesterday by interventional radiology but the drain was not placed as the fluid was serous and not suspicious for abscess.
She came back to hospital 2 weeks ago and presented with RIVAS. In ER patient was noted to be hypoxic requiring 4 L oxygen support. EKG was showing patient in A-fib with minimal troponin elevation chest x-ray was showing bilateral pleural effusion
with likely pulmonary edema/congestion. Patient was noted to having worsening leukocytosis as well. Patient was diagnosed to having paroxysmal A-fib with rapid ventricular rate was started on IV Cardizem drip, cardiology was involved in care and
was following along. Post improvement of heart rate patient was discharged on oral Toprol/Eliquis therapy. For patient hypoxia patient was started on IV diuretics as there was clinical concern of volume overload. A follow-up echocardiogram showed
a new drop in ejection fraction to 30 to 35% with hypokinesis of apical arredondo. Cardiology felt decline in EF related to tachycardia. Patient was started on GDMT as blood pressure allowed. Patient underwent thoracentesis on surgical request and
was able to be drained only 60 cc of clear fluid on right side. Post diuresis patient hypoxia resolved and was able to be weaned off of oxygen.
Patient is planned to undergo RObotic assiste LAR and TLH BSO for peridiverticular/tubo-ovarian abscess resection and is considered high risk.
patient had a repeat CT abdomen pelvis which showed a displaced GRAHAM drain, repeat drain placement was not visible as most of the abscess was drained. Patient was maintained on IV Merrem/micafungin and being discharged on regimen per ID
recommendation. Patient to be maintained on this regimen 5 days after the surgery which is on 04/15. Patient also was noted to have some dysarthria although pronounced when patient was fatigued/tired. A CT head did not show any new CVA. Patient
also had some antibiotic use related diarrhea which resolved as well. Patient was discharged on 04/11/24 to care home facility for rehab.
She had a colonoscopy a year ago at [facility] which was normal.
She does report intermittent diarrhea over the last month however this is attributed to antibiotics.
She did have a bowel movement yesterday. She states that her pain is improved since arriving at the hospital and specially after the aspiration yesterday
PMHx: Hypertension, HFpEF, Paroxysmal Atrial Fibrillation, CKD IIIa, Glaucoma
PSHx: cholecystectomy
POBHx: x2
FamHx: Mother with breast cancer
SHx: former smoker, quit. She drinks alcohol rarely socially. She denies any drug or marijuana use. She is with the partner for the last 35 years
Meds:
All: NKDA
Medical History
Past Medical History
Past Medical History: Reports Arrhythmia (Afib), CHF and HTN
Past Surgical History: Reports Cholecystectomy
Social History
Tobacco: Non-smoker
Alcohol: Occasional
Drug: None
Personal:
Living: Assisted
Employment: Retired
Family History
Family History: Reviewed & Not Pertinent
Allergies
Allergies reflect when allergies were last updated in [facility].
amlodipine Adverse Reaction (Verified 03/28/24 21:51)
stomach cramps
lisinopril Adverse Reaction (Verified 03/28/24 21:51)
abdominal cramping
unknown drug Allergy (Uncoded 03/28/24 21:51)
Unknown
Review of Systems
-
A 12 point Review of Systems was completed except as noted: Yes
Physical Exam
Vital Signs / I&O
Vitals
Temp Pulse Resp BP Pulse Ox
97.5 F 95 16 162/97 96
04/14/24 13:49 04/14/24 13:49 04/14/24 13:49 04/14/24 13:49 04/14/24 13:49
Physical Exam
General: No Apparent Distress and Other (appears chronically ill)
HEENT: Normocephalic and Anicteric
Respiratory: Clear
Cardiac: Regular Rhythm
Breast: Deferred by me
GI: Soft and Non Tender
Musculoskeletal: No Clubbing and No Cyanosis
Skin: Warm and Dry
Neuro: Awake, Alert and AO x 3
Hematologic/Lymphatic: No Lymphadenopathy
Psych: Intact Judgement
Results
-
04/14/24 15:29
Diagnostic Imaging Report
SignedOrder #:[id number]
Exams: CT Abd/pel W Iv And Oral Contr
EXAMINATION: CT of the abdomen and pelvis with oral and intravenous contrast
INDICATION: History of abscess and drainage. Follow-up.
COMPARISON: CT of the abdomen and pelvis from March 11, 2024. Images from CT drainage procedure from March 11, 2024. Abdominal radiograph from March 13, 2024.
FINDINGS: CT of the abdomen and pelvis is performed with oral and intravenous contrast.
Moderate bilateral pleural effusions, new since examination of March 10, 2024. Compressive atelectasis within the posterior lower lobes of both lungs. There is also band-shaped atelectasis within the right middle lobe.
No significant pericardial effusion is identified. Dense coronary artery calcifications and/or stents are present. Please correlate with symptoms of and risk factors for coronary artery disease, with further workup as clinically appropriate.
Left transgluteal percutaneous drainage catheter has pigtail uncoiled, and pigtail is located in the left piriformis muscle, and not within posterior pelvic collection.
Within the pelvis, there is a small extraluminal air and soft tissue density collection, significantly decreased in size compared to CT of March 10, 2024, and compatible with interval decrease in left pelvic abscess. Residual collection measures
approximately 3.2 cm transverse by 2.5 cm AP by 3.0 cm craniocaudal. This residual collection is located off the left posterior margin of the sigmoid colon, and there is moderate wall thickening of the sigmoid colon. This collection is also located
in the region of the left ovary and difficult to separate from the left ovary. This is felt to most likely represent a peridiverticular abscess, although tubo-ovarian abscess to exclude. This may represent a peridiverticular abscess that has
extended to involve the left ovary and adnexa.
There is a small amount of presacral edema.
No free intraperitoneal air is identified.
The appendix appears normal. There is no evidence for bowel obstruction.
The patient is status post cholecystectomy with no evidence for biliary ductal dilation.
No focal abnormality of the liver is identified.
Spleen has maximum dimension of 11.3 cm, within normal range of less than 13 cm. There is a 2 cm accessory spleen off the inferior margin of the spleen.
Both adrenal glands appear normal. The pancreas appears within normal limits.
There is a moderate-sized diverticulum arising from the second portion of the duodenum, and extending toward the pancreas.
Bilateral renal cysts are present. Mild scarring of the posterior upper pole of the left kidney. The visualized pelvicalyceal systems and ureters appear within normal limits. There is a Borjas catheter present within a collapsed bladder. No focal
abnormality of the bladder.
Moderate to severe vascular calcification with no aortic aneurysm.
There are no significantly enlarged abdominal or pelvic lymph nodes identified.
Moderate subcutaneous edema is present diffusely.
Mild dextroconvex scoliosis, centered at L2-3. Changes of degenerative disc disease which are greatest at L4-5
No significant degenerative change of the hip joints. Mild degenerative change of the symphysis pubis. Mild to moderate degenerative change of the anterior and inferior right sacroiliac joint. The left sacroiliac joint appears partially fused
anteriorly and inferiorly.
IMPRESSION: Left transgluteal percutaneous drainage catheter has been uncoiled pigtail within the region of the left piriformis muscle, no longer within the pelvic collection.
Decreased size of mixed air and soft tissue density collection within the pelvis, compatible with improvement in abscess/phlegmon.
No evidence of free intraperitoneal air.
The appendix appears normal.
Moderate-sized diverticulum arising in the second portion of the duodenum and extending adjacent to the head of the pancreas.
Moderate diffuse subcutaneous edema.
Electronically signed by Trino Jimenez MD, 03/31/2024 4:22 PM
Diagnostic Imaging Report
SignedOrder #:[id number]
Exams: CR Chest Portable - 1 View
CPT: [id number]
PROCEDURE: CR Chest Portable - 1 View
CLINICAL INDICATION: Right upper extremity PICC line placement. Robotic low anterior resection.
A sitting AP portable view of the chest was obtained. Comparison is made with prior radiographic examinations of the chest performed 04/04/2024, 04/01/2024, 03/28/2024, and 12/17/2023. Comparison is made with a CT examination of the abdomen and
pelvis performed 03/31/2024.
FINDINGS:
There is a right upper chest with a PICC line in place with the catheter tip projecting over the superior vena cava (SVC). The heart size appears within normal limits. There is severe calcific atherosclerotic plaque in the thoracic aorta. There is
mild diffuse distention of the pulmonary vasculature throughout both lungs.
The trachea is midline. The lung volumes are normal. There is a moderate amount of airspace consolidation in the subpleural basilar left lower lobe containing air bronchograms which has decreased since 04/04/2024. There is a suspected small left
pleural effusion which has decreased in size. There is no radiographic evidence for left pleural effusion or pneumothorax.
There is mild multilevel discogenic degenerative disease in the thoracic spine. There is no radiographic evidence for pneumoperitoneum or abnormal bowel dilatation in the upper abdomen. There is a small metal clip in the right breast.
IMPRESSION:
1. Right upper extremity PICC line in place with the tip projecting over the SVC.
2. Moderate left lower lobe airspace consolidation (either compressive atelectasis or pneumonia) and small left pleural effusion which have decreased in size since 04/04/2024.
3. Severe calcific atherosclerotic plaque in the thoracic aorta.
Electronically signed by Gasper Myers MD, 04/14/2024 4:03 PM
Dictated By: Louis LAW,Gasper Forrest.
Impression / Plan
-
78-year-old who appears to have developed a left lower quadrant pelvic abscess which is pericolonic associated with extensive diverticulitis of colon and involving left tube and ovary. She was treated with percutaneous drainage and antibiotics and
appears to have had improvement. medical history is complicated with Afib, pleural effusion which was cytology negative, CHF likely due to Afib and low EF but now optimized.
My suspicion for gynecologic malignancy is very low given the fact that she has had normal tumor markers and the initial aspiration of the pelvic mass during last admission had negative cytology.
I have personally spoken to Dr. Griffith. Assistance from gynecology
I will likely perform at a minimum left salpingo-oophorectomy but more likely TLH BSO, Based on clinical examination and review of the MRI images the abscess is somewhat confined to posterior aspect of the uterus and anterior aspects of
rectosigmoid. Risks of surgery is moderate but there is no other option. discuused with patient and son understanding risk of bleeding, injury to adjacent organs, VTE, CV events including NM, arrythmia and stoke and . Will sign consent in AM in
pre op .
Roberth Hanks MD
[facility]
[phone]
[2024-04-14] MEDS: FLAGYL 1000 MG PO ×2 (17:00→18:00)
[2024-04-14] MEDS: NEOMYCIN 1000 MG PO ×2 (17:00→18:00)
[2024-04-14 19:17] LABS: % Basophils 1.3 % (0-2); % Eosinophils 1.5 % (0-6); % Immature Granulocytes 0.3 % (0-0.5); % Lymphocytes 26.1 % (20.5-51.1); % Monocytes 12.2 % (1.7-9.3); % Neutrophils 58.6 % (42.2-75.2); Absolute Basophils 0.1 10^3/uL (0-0.2); Absolute Eosinophils 0.1 10^3/uL (0-0.7); Absolute Lymphocytes 1.9 10^3/uL (1.2-3.4); Absolute Monocytes 0.9 10^3/uL (0.1-0.6); Absolute Neutrophils 4.2 10^3/uL (1.4-6.5); Hematocrit 38.7 % (37.0-47.0); Hemoglobin 13.2 g/dL (12.0-16.0); Mean Corp Hgb Conc. 34.1 g/dL (33.0-37.0); Mean Corpuscular Hgb 30.3 pg (27.0-31.0); Mean Platelet Volume 12.1 fL (7.4-10.4); Nucleated Red Blood Cells % 0 %; Platelet Count 327 10^3/uL (130-400); Red Blood Cell Count 4.35 10^6/uL (4.20-5.40); Red Cell Dist. Width 14.5 % (11.5-14.5); White Blood Cell Count 7.2 10^3/uL (4.8-10.8)
[2024-04-14] MEDS: KCL 270 MEQ IV (21:32)
[2024-04-14] MEDS: FLUSH (NSS) 4 FLUSH IV (21:35)
[2024-04-14] MEDS: ZOFRAN 4 MG IV (21:35)
[2024-04-14] MEDS: TIMOPTIC 0.5% OPHTHALMIC SOLUTION 1 DROP BOTH EYES (21:36)
[2024-04-14] MEDS: STERILE WATER FOR INJECTION 10 ML IV (21:36)
[2024-04-14] MEDS: MERREM 500 MG IV (21:36)
[2024-04-14] MEDS: ENTRESTO 24 MG/26 MG 1 TAB PO (21:37)
[2024-04-14] MEDS: XALATAN OPHTHALMIC SOLUTION 1 DROP BOTH EYES (21:43)
[2024-04-14] MEDS: GAVILAX 238 GM PO (21:43)
[2024-04-14 23:18] VITALS: BP 159/89
[2024-04-15] VITALS (12 sets, daily range): BP systolic 124–160; BP diastolic 57–94; BMI 23.1
[2024-04-15] MEDS: XANAX 0.25 MG PO ×2 (00:10→21:07)
[2024-04-15] MEDS: FLAGYL 1000 MG PO (00:10)
[2024-04-15] MEDS: NEOMYCIN 1000 MG PO (00:11)
[2024-04-15] MEDS: NSS 1000 IV ×3 (00:34→21:05)
[2024-04-15] MEDS: STERILE WATER FOR INJECTION 10 ML IV ×3 (01:57→20:49)
[2024-04-15] MEDS: MERREM 500 MG IV ×3 (01:57→20:48)
[2024-04-15 04:35] LABS: % Basophils 1.4 % (0-2); % Eosinophils 1.2 % (0-6); % Immature Granulocytes 0.7 % (0-0.5); % Lymphocytes 24.9 % (20.5-51.1); % Monocytes 14.9 % (1.7-9.3); % Neutrophils 56.9 % (42.2-75.2); Absolute Basophils 0.1 10^3/uL (0-0.2); Absolute Eosinophils 0.1 10^3/uL (0-0.7); Absolute Immature Granulocytes 0.1 10^3/uL (0-0.05); Absolute Lymphocytes 1.8 10^3/uL (1.2-3.4); Absolute Monocytes 1.1 10^3/uL (0.1-0.6); Absolute Neutrophils 4.2 10^3/uL (1.4-6.5); Hematocrit 39.1 % (37.0-47.0); Hemoglobin 13.1 g/dL (12.0-16.0); Mean Corp Hgb Conc. 33.5 g/dL (33.0-37.0); Mean Corpuscular Hgb 29.9 pg (27.0-31.0); Mean Corpuscular Volume 89.3 fL (81.0-99.0); Mean Platelet Volume 11.3 fL (7.4-10.4); Nucleated Red Blood Cells % 0 %; Platelet Count 332 10^3/uL (130-400); Red Blood Cell Count 4.38 10^6/uL (4.20-5.40); Red Cell Dist. Width 14.6 % (11.5-14.5); White Blood Cell Count 7.4 10^3/uL (4.8-10.8)
[2024-04-15 04:56] LABS: Blood Urea Nitrogen 8 mg/dl (7-17); Calcium 9.6 mg/dl (8.4-10.2); Carbon Dioxide 26 mmol/L (22-30); Chloride 103 mmol/L (98-107); Estimated Creatinine Clearance 53 ml/min; Glucose 84 mg/dl (70-99); Potassium 3.9 mmol/L (3.5-5.1); Sodium 137 mmol/L (135-145); eGFR > 60.00
[2024-04-15] MEDS: TYLENOL 1000 MG PO (06:29)
[2024-04-15] MEDS: NEURONTIN 600 MG PO (06:29)
[2024-04-15] MEDS: HEPARIN 5000 UNITS SC (06:29)
[2024-04-15] MEDS: ENTEREG 12 MG PO (06:31)
[2024-04-15] MEDS: MERREM IV (08:28)
[2024-04-15] MEDS: MYCAMINE IV (10:02)
[2024-04-15 10:07] LABS: Glycohemoglobin (HgbA1c) 4.8 % (4.0-5.6)
--- NOTE | 2024-04-15 12:38 | W.IMMPOSTOP ---
Documented by User: JAZZMINE Gomez 04/15/24 12:52
Surgical Immed Post Op Note
-
Primary Surgeon: Stan Griffith MD
Drug Worker/onc surgeon: Roberth Hanks MD'
Urologist: Petar Alvares MD
Assistants: KARIN Whyte and NATALY LindoS
Pre-op Diagnosis: Pelvic abscess
Post-op Diagnosis: Same
Procedure Performed: Cystoscopy with bilateral ureteral stents and ICG
Robotic low anterior resection with takedown of splenic flexure, intracorporeal anastomosis
Robotic hysterectomy and bilateral salpingo-oopherectomy
Anesthesia Type: general
Specimen / Cultures: sigmoid colon (suture is proximal)
uterus and ovaries
Estimated Blood Loss: 100cc
Complications: none
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
28mm EEA
Normal leak test
Right ureteral catheter removed at the completion
Patient's family updated in the waiting room

Documented by User: Ck Griffith MD 04/15/24 15:07
Surgical Immed Post Op Note
-
Primary Surgeon: Stan Griffith MD
Drug Worker/onc surgeon: Roberth Hanks MD
Urologist: Petar Alvares MD
Assistants: Jessee Mendoza MD, KARIN Whyte and CARMELA Lindo
Pre-op Diagnosis: Pelvic abscess
Post-op Diagnosis: Same
Procedure Performed: Cystoscopy with bilateral ureteral stents and ICG
Robotic low anterior resection with takedown of splenic flexure, intracorporeal anastomosis
Robotic hysterectomy and bilateral salpingo-oophorectomy
Flexible sigmoidoscopy
Anesthesia Type: TAPPP block and GETA
Specimen / Cultures: sigmoid colon (suture is proximal)
uterus and ovaries
Estimated Blood Loss: 100cc
Complications: none
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
Accessory spleen at the gastrosplenic ligament
28mm EEA
Normal leak test
Right ureteral catheter removed at the completion
Patient's family updated in the waiting room
[2024-04-15] MEDS: ENTRESTO 24 MG/26 MG PO (15:14)
[2024-04-15] MEDS: TIMOPTIC 0.5% OPHTHALMIC SOLUTION BOTH EYES (15:15)
[2024-04-15] MEDS: STERILE WATER FOR INJECTION IV (15:15)
[2024-04-15] MEDS: PROTONIX PO (15:15)
[2024-04-15] MEDS: PROZAC PO (15:15)
[2024-04-15] MEDS: TOPROL XL PO (15:16)
[2024-04-15] MEDS: TYLENOL PO (15:17)
--- NOTE | 2024-04-15 15:19 | PTCARENOTE ---
received from OR. drowsy, awakens to voice, on 2L O2 via NC, 6 abdominal incisions with adhesive present C/D/I open to air. gaona cath intact and draining bloody urine (MD aware and its as expected). IVF infusing @80 ml/hr. family notified of the
patient being back from the surgery by this RN
--- NOTE | 2024-04-15 15:45 | CM ---
Patient returned from OR
IA completed - obtained by son
Case management consult completed. Advanced directives information
Patient had [facility] in past, also recent hospitalization went to [facility] on IV antifungal.
Lives with significant other in a split level 6 steps to enter and 6 steps to living space
Son stated he would like [facility] as it was discussed during last hospitalization
PT/OT to eval - tt for OT order
PCP: Prince Maldonado
Pharmacy: [facility], [place]
PLAN: Await PT/OT evals
--- NOTE | 2024-04-15 20:20 | CON.HOSP ---
Family Physician
-
Family Physician: Prince Maldonado
Chief Complaint
-
post op consult
History of Present Illness
78-year-old female past medical history of paroxysmal atrial fibrillation on Eliquis, chronic HFrEF, pulmonary hypertension, CKD 3, glucoma, peridiverticular tubo-ovarian abscess, recurrent sigmoid diverticulitis, recurrent UTI, who underwent
robotic low anterior resection and hysterectomy/bilateral salpingo-oophorectomy for chronic pelvic abscess.
Patient complains of some soreness in her abdomen. She states that when she woke up after surgery of her right eye was shot close and uncomfortable but now her right eye feels fine.
Medical History
Past Medical History
Past Medical History: Reports Other (paroxysmal atrial fibrillation on Eliquis, chronic HFrEF, pulmonary hypertension, CKD 3, glucoma, peridiverticular tubo-ovarian abscess, recurrent sigmoid diverticulitis, recurrent UTI)
Past Surgical History: Reports Other (Cholecystectomy)
Social History
Tobacco: Former Smoker
Alcohol: Occasional
Drug: None
Family History
Family History: Reviewed & Not Pertinent
Allergies / Home Medications
Allergies reflects when Allergies were last updated in [employer].
Home Medications with original date entered in [employer]
Allergy/Medication List:
Allergies
Allergy/AdvReac Type Severity Reaction Status Date / Time
amlodipine Allergy stomach Verified 04/14/24 18:40
cramps
lisinopril Allergy abdominal Verified 04/14/24 18:40
cramping
unknown drug Allergy Unknown Uncoded 03/28/24 21:51
Home Medications
cholecalciferol (vitamin D3) 50 mcg (2,000 unit) tablet (Vitamin D3) 50 mcg PO MOTUWETHFR supplement 12/08/23
timolol maleate 0.5 % eye gel forming solution 1 drp BOTH EYES DAILY eye condition 12/08/23
Lactobacillus rhamnosus GG 10 billion cell capsule (Culturelle) 1 cap PO DAILY Supplement 12/17/23
fluoxetine 20 mg capsule 20 mg PO DAILY Mental Health/Anxiety 02/23/24
furosemide 20 mg tablet 20 mg PO MOWEFR Fluid Retention/Swelling 02/23/24
omeprazole 40 mg capsule,delayed release 40 mg PO DAILY 30 days #30 caps 03/20/24
bisacodyl 10 mg rectal suppository (Dulcolax (bisacodyl)) 10 mg WA DAILYPRN PRN mom ineffective after 24 hours 03/28/24
latanoprost 0.005 % eye drops 1 drp BOTH EYES HS Eye Condition 03/28/24
loperamide 2 mg tablet 2 mg PO [id number] PRN diarrhea 03/28/24
magnesium hydroxide 400 mg/5 mL oral suspension (Milk of Magnesia) 30 ml PO [id number] PRN no bm 3 days 03/28/24
sodium phosphates 19 gram-7 gram/118 mL enema (Fleet Enema) 118 ml WA DAILYPRN PRN dulcolax ineffective after 24 hrs 03/28/24
Micafungin Sodium [Mycamine] 100 mg 105 mls/hr IV DAILY@1000 Continue 5 days after surgery on 04/1504/11/24
alprazolam 0.25 mg tablet (Xanax) 0.25 mg PO BID PRN anxiety #10 tabs 04/11/24
alprazolam 0.25 mg tablet (Xanax) 0.25 mg PO HS #10 tabs 04/11/24
apixaban 5 mg tablet (Eliquis) 5 mg PO BID #60 tabs 04/11/24
dapagliflozin propanediol 10 mg tablet 10 mg PO DAILY Heart disease/condition #30 tabs 04/11/24
meropenem 500 mg intravenous solution 500 mg IV Q8H #10 ea 04/11/24
metoprolol succinate 100 mg tablet,extended release 24 hr 150 mg (1.5 x 100 mg) PO DAILY Heart disease/condition #30 tabs 04/11/24
sacubitril 24 mg-valsartan 26 mg tablet (Entresto) 1 tab PO BID Heart disease/condition #30 tabs 04/11/24
spironolactone 25 mg tablet 25 mg PO DAILY Heart disease/condition #30 tabs 04/11/24
Review of Systems
-
History Source: Patient
A 12 point Review of Systems was completed except as noted: Yes
Constitutional: Reports No Symptoms
EENT: Reports No Symptoms
Respiratory: Reports No Symptoms
Cardiac: Reports No Symptoms
Abdomen/GI: Reports No Symptoms
: Reports No Symptoms
Musculoskeletal: Reports No Symptoms
Skin: Reports No Symptoms
Neurological: Reports No Symptoms
Endocrine: Reports No Symptoms
Hematologic/Lymphatic: Reports No Symptoms
Psych: Reports No Symptoms
Physical Exam
Vital Signs
Vital Signs
Temp Pulse Resp BP Pulse Ox
97.5 F 98 17 141/80 99
04/15/24 18:00 04/15/24 18:00 04/15/24 18:00 04/15/24 18:00 04/15/24 18:00
Physical Exam
General: Well Developed, Well Nourished and No Apparent Distress
HEENT: Normocephalic, Moist Mucous Membranes and Atraumatic
Respiratory: Clear
Cardiac: S1/S2 and Regular Rhythm; Negative Murmur or Rub
GI: Soft, Non Tender, Non Distended and Normal Bowel Sounds
Rectal: Deferred by Provider
Musculoskeletal: No Clubbing, No Cyanosis and No Edema
Skin: Negative Rash
Neuro: Nonfocal/Grossly Intact
Laboratory Results
-
Laboratory Results
04/15/24 04:05
04/15/24 04:05
PT 14.8 Sec (11.4-14.6) H 04/14/24 15:29
INR 1.11 04/14/24 15:29
APTT 37.1 Sec (23.4-35.0) H 04/14/24 15:29
Data Reviewed
-
Lab Data: Labs Reviewed
Old Records: Reviewed
Impression / Plan
-
IMPRESSION:
PLAN:
# Left tubo-ovarian abscess secondary to diverticular disease
-Status post robotic low anterior resection with takedown of splenic flexure, intracorporeal anastomosis
-Status post robotic assisted total laparoscopic hysterectomy and bilateral salpingo-oophorectomy, extensive pelvic lysis of adhesions
-Patient on meropenem
-Pain control with Tylenol, oxycodone, as per colorectal
-Clear liquid diet as per colorectal
# Mild right eye corneal abrasion
-Started ciprofloxacin eyedrops but appears to have improved without eyedrops
Paroxysmal atrial fibrillation
-Eliquis held
-Continue metoprolol
Chronic HFpEF
-Continue Entresto
-Spironolactone held
-Dapagliflozin held
-Lasix held
Essential hypertension
CKD 3
-Renal function at baseline
Glaucoma
-Continue latanoprost
Anxiety/depression
-Continue Xanax, fluoxetine
GERD
-continue PPI
DVT prophylaxis�heparin
Clear liquid diet
[2024-04-15] MEDS: TYLENOL 650 MG PO (20:49)
[2024-04-15] MEDS: TIMOPTIC 0.5% OPHTHALMIC SOLUTION 1 DROP BOTH EYES (20:49)
[2024-04-15] MEDS: ENTRESTO 24 MG/26 MG 1 TAB PO (20:49)
[2024-04-15] MEDS: CILOXAN 0.3% OPHTHALMIC SOLUTION OPHTH (21:04)
[2024-04-15] MEDS: CILOXAN 0.3% OPHTHALMIC SOLUTION 2 DROP OPHTH (21:07)
[2024-04-15] MEDS: XALATAN OPHTHALMIC SOLUTION 1 DROP BOTH EYES (21:08)
[2024-04-15 21:28] LABS: Glucose - Point of Care 120 mg/dl (70-99)
[2024-04-16] MEDS: TYLENOL 650 MG PO ×6 (00:45→21:25)
[2024-04-16] MEDS: CILOXAN 0.3% OPHTHALMIC SOLUTION 2 DROP OPHTH ×3 (00:46→21:26)
[2024-04-16] MEDS: MERREM 500 MG IV ×4 (01:34→21:26)
[2024-04-16] MEDS: STERILE WATER FOR INJECTION 10 ML IV ×4 (01:35→21:25)
[2024-04-16 03:33] VITALS: BP 144/71
[2024-04-16 05:25] LABS: Hemoglobin 11.8 g/dL (12.0-16.0); Mean Corp Hgb Conc. 32.8 g/dL (33.0-37.0); Mean Corpuscular Hgb 29.4 pg (27.0-31.0); Mean Corpuscular Volume 89.8 fL (81.0-99.0); Mean Platelet Volume 11.5 fL (7.4-10.4); Platelet Count 308 10^3/uL (130-400); Red Blood Cell Count 4.01 10^6/uL (4.20-5.40); Red Cell Dist. Width 14.5 % (11.5-14.5); White Blood Cell Count 12.4 10^3/uL (4.8-10.8)
[2024-04-16 05:46] VITALS: BMI 23.1
[2024-04-16 05:49] LABS: Blood Urea Nitrogen 15 mg/dl (7-17); Carbon Dioxide 22 mmol/L (22-30); Chloride 103 mmol/L (98-107); Estimated Creatinine Clearance 37 ml/min; Glucose 100 mg/dl (70-99); Sodium 134 mmol/L (135-145); eGFR 56.95
[2024-04-16 07:20] VITALS: BP 144/83
[2024-04-16] MEDS: PROZAC 20 MG PO (08:25)
[2024-04-16] MEDS: PROTONIX 40 MG PO (08:25)
[2024-04-16] MEDS: ENTRESTO 24 MG/26 MG 1 TAB PO ×2 (08:25→21:25)
[2024-04-16] MEDS: TOPROL XL 150 MG PO (08:26)
[2024-04-16] MEDS: TIMOPTIC 0.5% OPHTHALMIC SOLUTION 1 DROP BOTH EYES ×2 (08:26→21:26)
[2024-04-16] MEDS: CILOXAN 0.3% OPHTHALMIC SOLUTION 1 DROP OPHTH ×2 (08:27→13:10)
--- NOTE | 2024-04-16 09:49 | W.PN.GYNONC ---
Today's Communication
-
-
Impression / Plan
-
78-year-old with left lower quadrant pelvic abscess which is pericolonic /left tubo-ovarian abscess
POD day 1 s/p robotic assisted low anterior resection with TLH BSO, recovering well
VSS and labs stable
will follow colorectal plan for diet.
continue incentive spirometry
encourage OOB and ambulation, get PT and OT consult
labs reviewed and ok.
continue VTE and GI prophylaxis, once she is hemodynamically stable we will transition to eliquis for prior history of Afib
I have reviewed, edited and participated in the critical and sena portions of the exam and agree with Stephani Gao PA-C findings and treatment plan.
Roberth Hanks MD
[facility]
[phone]
Subjective / Interval History
-
POD 1-s/p Robotic TLH BSO, LAR with reanastamosis
patient states she is feeling good she is having some pain around her port sites and occasional pelvic pressure, but states the pressure is better this morning.denies any nausea or vomiting.
Objective Data
-
Lab Results:
04/16/24 04:43
04/16/24 04:43
Physical Exam
Vital Signs / I&O
Vitals
Temp Pulse Resp BP Pulse Ox
98.1 F 98 16 144/83 97
04/16/24 07:20 04/16/24 07:20 04/16/24 07:20 04/16/24 07:20 04/16/24 07:20
I&O
04/14/24 04/15/24 04/16/24 04/17/24
06:59 06:59 06:59 06:59
Intake Total 2045 1180 / 1180
Output Total 710 / 710
Balance 2042 470 / 470
Physical Exam
vss
abdomen- soft nondistended,port sites closed and dry tenderness around port sites
General: Comfortable
Respiratory: Non Labored Respirations
Musculoskeletal: No Edema
Data Reviewed
-
Lab Data: Labs Reviewed
[2024-04-16] MEDS: MYCAMINE 105 MG IV (10:20)
[2024-04-16] MEDS: DILAUDID 0.25 MG IV (10:20)
[2024-04-16 11:30] VITALS: BP 123/60
--- NOTE | 2024-04-16 11:42 | W.PN.CRS1 ---
Today's Communication / Plan
-
As below
Assessment/Plan
-
78-year-old female with PMH of A-fib (on Eliquis), HTN, CKD, glaucoma, HFrEF, pulmonary hypertension and persistent left pelvic abscess likely related to the colon, possibly gynecological in origin, presented for elective surgery
POD 1 robotic LAR and DOUGLAS/BSO
AFVSS
WBC 12.4 from 7.4, Hb 11.8 from 13.1, Cr 1.0, UOP 710
�Okay for full liquids
� Continue pain control Tylenol, oxycodone, Dilaudid as needed
� Okay for DVT PPx with Lovenox
� DC Borjas, monitor for void
� OOB/IS; appreciate PT
�Appreciate Surgical Services Asst Onc
Subjective Data
Subjective Data
Date of Service: April 16, 2024
No overnight events.
Pain controlled.
Denies nausea/vomiting. Tolerating clears.
-flatus -BMs + Borjas
Objective Data
-
Vital Signs
Temp Pulse Resp BP Pulse Ox
98.1 F 98 16 144/83 97
04/16/24 07:20 04/16/24 07:20 04/16/24 07:20 04/16/24 07:20 04/16/24 07:20
Intake & Output
04/15/24 04/16/24 04/17/24
06:59 06:59 06:59
Intake Total 2045 1180 / 1180
Output Total /
Balance 2042 470 / 470
Intake:
Oral fluids 2045 120 / 120
IV fluids (Total) 1060 / 1060
NSS 100 / 100
Output:
Liquid stool amount 3 / 3
Rectum 3 / 3
Urine, Borjas
Other:
Number of approximated MODERATE 3
amounts of urine
Lab Results
04/16/24 04:43
04/16/24 04:43
Physical Exam
-
General: No Acute Distress and AOx3
HEENT: Grossly Normal
Abdomen: Soft, Non Distended, Tender (Appropriately tender near incisions), No Guarding and No Rebound
Skin: Warm and Dry
Wound: No Signs of Infection, Dressing in Place (Dermabond) and No Skin Erythema
--- NOTE | 2024-04-16 14:30 | W.PN.HOSP.TC ---
Addendum entered and electronically signed by Vipul Torres MD 04/16/24 15:02:
Seen and examined by me independently in collaboration with the medical transcription supervisor Edi.
Lab data and imaging data reviewed.
Addendum as below :
Laparoscopic incisional pain is okay. Denies any nausea.
Denies any shortness of breath or chest pain.
Chest is clear. Heart sound S1 plus S2 heard regular. She has subcutaneous anterior chest wall emphysema
Abdomen soft.
Continue with postop care per colorectal surgery including antibiotics.
With regards to atrial fibrillation-it is paroxysmal-today is in sinus rhythm. Resume Eliquis when okay from surgical standpoint.
Chronic heart failure with reduced EF- EF 30 to 35% in March 2020 for echo. weight has been stable compared to before. Hold diuretics. Continue with Entresto. Clinically compensated. Will continue to follow along with you.
Original Note:
Today's Communication/Plan
-
Symptomatic management
Continue holding Eliquis, Farxiga, Lasix and spironolactone
Will reinitiate at a later date
Assessment / Plan
Assessment / Plan
IMPRESSION:
78-year-old female with recent robotic bilateral salpingo-oophorectomy and sigmoid resection.
PLAN:
# Left tubo-ovarian abscess secondary to diverticular disease
Status post robotic low anterior resection with takedown of splenic flexure, intracorporeal anastomosis on 04/15/2024
Status post robotic assisted total laparoscopic hysterectomy and bilateral salpingo-oophorectomy, extensive pelvic lysis of adhesions on 04/15/2024
Patient on meropenem
Pain control with Tylenol, oxycodone
Clear liquid diet, advance per colorectal
# Mild right eye corneal abrasion
Started ciprofloxacin eyedrops
Patient reports much improvement with eyedrops
#Paroxysmal atrial fibrillation
Eliquis held, reinitiation per surgery bleeding risk has fallen to acceptable levels
Continue metoprolol
#Chronic HFpEF
Continue Entresto
Currently holding Lasix, Farxiga, spironolactone. Will reinitiate at a later time
#Essential hypertension
Continue home metoprolol succinate
#Hematuria
Secondary to procedures
Per surgery, should clear up
Continue Borjas
Continue to monitor output
#CKD 3
Renal function at baseline
# Glaucoma
Continue latanoprost
# Anxiety/depression
Continue Xanax, fluoxetine
#GERD
continue PPI
DVT prophylaxis�heparin
Clear liquid diet
Anticipated Discharge: > 48 hours
Subjective/Interval History
-
Date of Service: April 16, 2024
Patient reports slight chest pain, tolerating diet well. Recovering well postop
Objective Data
-
Labs:
Laboratory Results
04/16/24
04:43
WBC 12.4 H
Hgb 11.8 L
Hct 36.0 L
Plt Count 308
Sodium 134 L
Potassium 4.0
Chloride 103
Carbon Dioxide 22
BUN 15
Creatinine 1.0
Glucose 100 H
Calcium 9.0
Vital Signs:
Vital Signs
Temp Pulse Resp BP Pulse Ox
97.8 F 97 16 123/60 96
04/16/24 11:30 04/16/24 11:30 04/16/24 11:30 04/16/24 11:30 04/16/24 11:30
I&O
04/15/24 04/16/24 04/17/24
06:59 06:59 06:59
Intake Total 2045 1180 / 1180
Output Total 710 / 710
Balance 2042 470 / 470
Review of Systems
-
Constitutional: Reports No Symptoms
Respiratory: Reports No Symptoms
Cardiac: Reports No Symptoms
Abdomen/GI: Reports Abdominal Pain and Constipated
Genitourinary: Reports Bleeding
Physical Exam
-
General: No Apparent Distress, Comfortable and Conversant
Respiratory: Clear to Auscultation
Cardiac: S1/S2 and Irregular Rhythm
GI: Soft, Nondistended and Tender
Genito-urinary: Bloody Urine and Borjas
Skin: Other (Subcutaneous emphysema present on chest)
Neuro: Awake, Alert, Oriented and AO x 3
Psych: Calm and Intact Judgement/Insight
Data Reviewed
-
Diagnostic Radiology: Report Reviewed by me and Discussed with Physician
Labs: Labs Reviewed by me and Discussed with Physician
[2024-04-16 15:00] VITALS: BP 117/74
[2024-04-16 15:15] VITALS: BP 111/68
[2024-04-16] MEDS: ROXICODONE 5 MG PO (16:55)
[2024-04-16] MEDS: LOVENOX 40 MG SC (16:55)
[2024-04-16] MEDS: CILOXAN 0.3% OPHTHALMIC SOLUTION OPHTH (17:48)
[2024-04-16] MEDS: XANAX 0.25 MG PO (21:25)
[2024-04-16] MEDS: XALATAN OPHTHALMIC SOLUTION 1 DROP BOTH EYES (21:26)
[2024-04-16 23:39] VITALS: BP 103/57
[2024-04-17] MEDS: TYLENOL 650 MG PO ×4 (01:00→17:39)
[2024-04-17] MEDS: CILOXAN 0.3% OPHTHALMIC SOLUTION 2 DROP OPHTH ×6 (01:01→21:42)
[2024-04-17] MEDS: MERREM 500 MG IV ×4 (01:02→20:37)
[2024-04-17] MEDS: STERILE WATER FOR INJECTION 10 ML IV ×4 (01:03→20:37)
[2024-04-17 05:52] LABS: Hematocrit 31.6 % (37.0-47.0); Hemoglobin 10.9 g/dL (12.0-16.0); Mean Corp Hgb Conc. 34.5 g/dL (33.0-37.0); Mean Corpuscular Hgb 30.4 pg (27.0-31.0); Mean Corpuscular Volume 88.3 fL (81.0-99.0); Mean Platelet Volume 11.4 fL (7.4-10.4); Platelet Count 248 10^3/uL (130-400); Red Blood Cell Count 3.58 10^6/uL (4.20-5.40); Red Cell Dist. Width 14.6 % (11.5-14.5); White Blood Cell Count 7.7 10^3/uL (4.8-10.8)
[2024-04-17 06:00] VITALS: BMI 24.0
[2024-04-17 06:23] LABS: Blood Urea Nitrogen 18 mg/dl (7-17); Calcium 8.6 mg/dl (8.4-10.2); Carbon Dioxide 23 mmol/L (22-30); Chloride 102 mmol/L (98-107); Estimated Creatinine Clearance 46 ml/min; Glucose 90 mg/dl (70-99); Potassium 3.6 mmol/L (3.5-5.1); Sodium 134 mmol/L (135-145); eGFR > 60.00
[2024-04-17 08:00] VITALS: BP 127/71
[2024-04-17] MEDS: ENTRESTO 24 MG/26 MG 1 TAB PO ×2 (08:50→20:36)
[2024-04-17] MEDS: ROXICODONE 5 MG PO (08:51)
[2024-04-17] MEDS: PROTONIX 40 MG PO (08:51)
[2024-04-17] MEDS: TOPROL XL 150 MG PO (08:51)
[2024-04-17] MEDS: PROZAC 20 MG PO (08:51)
[2024-04-17] MEDS: TIMOPTIC 0.5% OPHTHALMIC SOLUTION 1 DROP BOTH EYES ×2 (08:52→20:37)
--- NOTE | 2024-04-17 09:08 | W.PN.HOSP.TC ---
Today's Communication/Plan
-
Restart Eliquis tomorrow per colorectal
Reinitiate Lasix Thursday, give one-time dose today
Restart spironolactone
Continue antibiotic/antifungal
Pain/symptomatic management
Assessment / Plan
Assessment / Plan
IMPRESSION:
78-year-old female with recent robotic bilateral salpingo-oophorectomy and sigmoid resection.
PLAN:
# Left tubo-ovarian abscess secondary to diverticular disease
Status post robotic low anterior resection with takedown of splenic flexure, intracorporeal anastomosis on 04/15/2024
Status post robotic assisted total laparoscopic hysterectomy and bilateral salpingo-oophorectomy, extensive pelvic lysis of adhesions on 04/15/2024
Patient on meropenem and micafungin, stop date added for 04/28/24
Pain control with Tylenol, oxycodone
Full liquid diet, advance per colorectal
# Mild right eye corneal abrasion
Started ciprofloxacin eyedrops
Patient reports much improvement with eyedrops
#Paroxysmal atrial fibrillation
Continue holding Eliquis, consider reinitiating tomorrow
Continue metoprolol
#Chronic HFpEF
Continue Entresto
Restarted Lasix Thursday, will give one-time dose today
Reinitiate spironolactone
Continue holding Farxiga
#Essential hypertension
Continue home metoprolol succinate
#Hematuria
Secondary to procedures
Per surgery, should clear up
Continue Borjas
Continue to monitor output
#CKD 3
Renal function at baseline
# Glaucoma
Continue latanoprost
# Anxiety/depression
Continue Xanax, fluoxetine
#GERD
continue PPI
DVT prophylaxis�heparin
Diet: Full liquid diet
Anticipated Discharge: > 48 hours
Subjective/Interval History
-
Date of Service: April 17, 2024
Patient reports abdominal and chest pain, subcutaneous emphysema still present
Objective Data
-
Labs:
Laboratory Results
04/17/24
05:30
WBC 7.7
Hgb 10.9 L
Hct 31.6 L
Plt Count 248
Sodium 134 L
Potassium 3.6
Chloride 102
Carbon Dioxide 23
BUN 18 H
Creatinine 0.8
Glucose 90
Calcium 8.6
Vital Signs:
Vital Signs
Temp Pulse Resp BP Pulse Ox
97.6 F 98 16 127/71 97
04/17/24 08:00 04/17/24 08:00 04/17/24 08:00 04/17/24 08:00 04/17/24 08:00
I&O
04/16/24 04/17/24 04/18/24
06:59 06:59 06:59
Intake Total 1180 / 1180 1540 / 1540
Output Total 710 / 710 500 / 500
Balance 470 / 470 1040 / 1040
Review of Systems
-
History Source: Patient
Constitutional: Reports No Symptoms
Respiratory: Reports Pleurisy
Cardiac: Reports No Symptoms
Abdomen/GI: Reports Abdominal Pain; Denies Nausea or Vomiting
Genitourinary: Reports No Symptoms
Physical Exam
-
General: Well Developed, Well Nourished, No Apparent Distress and Conversant
Respiratory: Clear to Auscultation
Cardiac: S1/S2 and Irregular Rhythm
GI: Soft, Nondistended, Tender and Other (Surgical incisions healing well)
Genito-urinary: Borjas
Musculoskeletal: No Edema
Skin: Warm and Dry
Neuro: Awake, Alert, Oriented and AO x 3
Psych: Calm and Intact Judgement/Insight
Data Reviewed
-
Labs: Labs Reviewed by me and Discussed with Physician
[2024-04-17] MEDS: MYCAMINE 105 MG IV (10:19)
[2024-04-17] MEDS: ALDACTONE 25 MG PO (12:01)
[2024-04-17] MEDS: LASIX 20 MG PO (12:01)
[2024-04-17] MEDS: TYLENOL PO ×2 (12:01→20:36)
[2024-04-17] MEDS: DILAUDID 0.25 MG IV (12:51)
--- NOTE | 2024-04-17 13:14 | W.PN.UPDATE ---
Addendum entered and electronically signed by Vipul Torres MD 04/17/24 13:18:
With regards to antibiotics and antifungal-patient was on that since discharge and the plan was to continue for 5 days postop. To stop on 04/20/2024 according to prior ID recommendations and I would keep that ID recommendations. Recovery well
from post op without fevers or leukocytosis or sepsis.
Original Note:
Update Note
Progress Note Update
Seen and examined by me independently in collaboration with the medical technicians Edi.
Lab data and imaging data reviewed.
Addendum as below :
She is feeling improved in symptoms. Still with a postsurgical pain. Tolerating diet. Denies shortness of breath.
Afebrile and hemodynamically stable. Oxygenating well on room air. Chest anteriorly apart from crepitus is clear.
Abdomen soft.
Continue with the postop care per colorectal surgery. Reintroduce Eliquis for A-fib when okay from surgery standpoint.
From chronic systolic heart failure she seems clinically compensated without symptoms. Weight is going up. Reintroduce Lasix and spironolactone. She is on Entresto. Once she is on her solid diet will reintroduce Farxiga.
Discussed with son on the phone and updated the clinical picture,and treatment plan.
--- NOTE | 2024-04-17 13:29 | W.PN.CRS1 ---
Today's Communication / Plan
-
As below
Assessment/Plan
-
78-year-old female with PMH of A-fib (on Eliquis), HTN, CKD, glaucoma, HFrEF, pulmonary hypertension and persistent left pelvic abscess likely related to the colon, possibly gynecological in origin, presented for elective surgery
POD 2 robotic LAR and DOUGLAS/BSO
AFVSS
WBC 7.7 from 12.4, Hb 10.9 from 11.8, Cr 0.8
�Okay for low residue diet
� Continue pain control Tylenol, oxycodone, Dilaudid as needed
� Okay for DVT PPx with Lovenox; if hemoglobin stable tomorrow, will restart Eliquis tomorrow
� DC Borjas, monitor for void
� OOB/IS; appreciate PT
�Appreciate Batch Attendant Onc
Dispo�hopefully discharge tomorrow to rehab
Subjective Data
Subjective Data
Date of Service: April 17, 2024
No overnight events.
Pain controlled.
Denies nausea/vomiting. Tolerating diet.
+flatus +BMs + Borjas
Objective Data
-
Vital Signs
Temp Pulse Resp BP Pulse Ox
97.6 F 98 16 127/71 97
04/17/24 08:00 04/17/24 08:00 04/17/24 08:00 04/17/24 08:00 04/17/24 08:00
Intake & Output
04/16/24 04/17/24 04/18/24
06:59 06:59 06:59
Intake Total 1180 / 1180 1540 / 1540
Output Total 710 / 710 500 / 500
Balance 470 / 470 1040 / 1040
Intake:
Oral fluids 120 / 120 1540 / 1540
IV fluids (Total) 1060 / 1060
NSS 100 / 100
Output:
Urine, Borjas 710 / 710 500 / 500
Other:
Number of unmeasured liquid
stools
Rectum 1
Lab Results
04/17/24 05:30
04/17/24 05:30
Physical Exam
-
General: No Acute Distress and AOx3
HEENT: Grossly Normal
Abdomen: Soft, Non Distended, Tender (Appropriately tender near incision), No Guarding and No Rebound
Skin: Warm and Dry
Wound: No Signs of Infection, Dressing in Place (Dermabond) and No Skin Erythema
[2024-04-17 16:45] VITALS: BP 143/79
--- NOTE | 2024-04-17 17:37 | PTCARENOTE ---
gaona removed and patient tolerated the catheeter removal. cont with PRN pain meds. oob to a chair x2 hrs with 1 person assist. large bowel movement recorded. tolerating low res diet. picc line to RUE intact and both lumens patent. CDS on. patient
is resting in bed comfortably
[2024-04-17] MEDS: LOVENOX 40 MG SC (17:39)
--- NOTE | 2024-04-17 17:41 | W.PN.GYNONC ---
Today's Communication
-
N/A
Impression / Plan
-
78-year-old with left lower quadrant pelvic abscess which is pericolonic /left tubo-ovarian abscess
POD day 2 s/p robotic assisted low anterior resection with TLH BSO, recovering well
VSS , afebrile and labs stable
will follow colorectal plan for diet. transition to low residue
continue incentive spirometry
encourage OOB and ambulation,
appreciate PT and OT consult
l am ok with resuming eliquis on Thursday
Roberth Hanks MD
Weatherization Field Technician Oncology
[phone]
Subjective / Interval History
-
POD2
she has spent sometime out of bed
passed flatus and had BM this AM
Objective Data
-
Lab Results:
04/17/24 05:30
04/17/24 05:30
Physical Exam
Vital Signs / I&O
Vitals
Temp Pulse Resp BP Pulse Ox
97.4 F 99 16 143/79 97
04/17/24 16:45 04/17/24 16:45 04/17/24 16:45 04/17/24 16:45 04/17/24 16:45
I&O
04/15/24 04/16/24 04/17/24 04/18/24
06:59 06:59 06:59 06:59
Intake Total 2045 1180 / 1180 1540 / 1540
Output Total 710 / 710 500 / 500 650 / 650
Balance 2042 470 / 470 1040 / 1040 -650 / -650
Physical Exam
General: No Apparent Distress
Respiratory: Clear and Non Labored Respirations
Cardiac: S1/S2 and Regular Rhythm
GI: Soft and Non Tender
Data Reviewed
-
Lab Data: Labs Reviewed
[2024-04-17] MEDS: XALATAN OPHTHALMIC SOLUTION 1 DROP BOTH EYES (22:39)
[2024-04-17] MEDS: XANAX 0.25 MG PO (22:39)
[2024-04-17 23:15] VITALS: BP 139/81
[2024-04-17] MEDS: ZOFRAN 4 MG IV (23:43)
[2024-04-18] MEDS: TYLENOL PO ×2 (00:37→11:08)
[2024-04-18] MEDS: CILOXAN 0.3% OPHTHALMIC SOLUTION 2 DROP OPHTH ×4 (02:31→22:09)
[2024-04-18] MEDS: STERILE WATER FOR INJECTION 10 ML IV ×4 (02:32→22:08)
[2024-04-18] MEDS: MERREM 500 MG IV ×4 (02:32→22:06)
[2024-04-18 05:04] LABS: Hematocrit 35.1 % (37.0-47.0); Hemoglobin 11.4 g/dL (12.0-16.0); Mean Corp Hgb Conc. 32.5 g/dL (33.0-37.0); Mean Corpuscular Hgb 29.8 pg (27.0-31.0); Mean Corpuscular Volume 91.9 fL (81.0-99.0); Mean Platelet Volume 10.9 fL (7.4-10.4); Platelet Count 258 10^3/uL (130-400); Red Blood Cell Count 3.82 10^6/uL (4.20-5.40); Red Cell Dist. Width 14.8 % (11.5-14.5); White Blood Cell Count 6.6 10^3/uL (4.8-10.8)
[2024-04-18] MEDS: TYLENOL 650 MG PO ×4 (05:05→22:09)
[2024-04-18 05:29] LABS: ALT (SGPT) 15 U/L (0-35); AST (SGOT) 31 U/L (14-36); Albumin 2.5 g/dl (3.5-5.0); Alkaline Phosphatase 52 U/L (38-126); Blood Urea Nitrogen 13 mg/dl (7-17); Calcium 8.3 mg/dl (8.4-10.2); Carbon Dioxide 28 mmol/L (22-30); Chloride 100 mmol/L (98-107); Estimated Creatinine Clearance 62 ml/min; Glucose 80 mg/dl (70-99); Potassium 3.5 mmol/L (3.5-5.1); Sodium 134 mmol/L (135-145); Total Bilirubin 0.9 mg/dl (0.2-1.3); Total Protein 4.6 g/dl (6.3-8.2); eGFR > 60.00
[2024-04-18 06:00] VITALS: BMI 23.7
[2024-04-18 07:20] VITALS: BP 143/81
--- NOTE | 2024-04-18 07:49 | W.PN.HOSP.TC ---
Addendum entered and electronically signed by Abilio Chilel MD 04/19/24 05:53:
Attending Addendum-
I saw and evaluated the patient. I reviewed the resident�s note and agree with findings and plan as documented in the resident�s note. Sub: patietn seen with son. feels weak. complains if bowel incontinence. per son having soft frequent stools.
Full 12 point ROS reviewed and negative except as documented Exam: Vitals reviewed in chart GEN-NAD heart RRR lungs decreased at bases fine crackles b/l abd incision CDI LE trace b/l LE edema
PLAN:
# Left tubo-ovarian abscess secondary to diverticular disease
-Status post robotic low anterior resection with takedown of splenic flexure, intracorporeal anastomosis on 04/15/2024
-Status post robotic assisted total laparoscopic hysterectomy and bilateral salpingo-oophorectomy, extensive pelvic lysis of adhesions on 04/15/2024
-cont meropenem and micafungin -> 04/20
-Pain control with Tylenol, oxycodone
-advance diet per primary
# Mild right eye corneal abrasion
to complete ciprofloxacin eyedrops
#Paroxysmal atrial fibrillation
- resume Eliquis
- Continue metoprolol
# Hyponatremia
- mild secondary to hypervolemia
- cont diuretics
- repeat BMP in am
# Urinary Retention
- gaona dc'd
- urinating as usual
#Chronic HFpEF
-Continue Entresto
-Restarted Lasix Thursday
-restart spironolactone
-restart Farxiga on DC
#Essential hypertension
Continue home metoprolol succinate
#CKD 3
-Renal function at baseline
# Glaucoma
-Continue latanoprost
# Anxiety/depression
- cont prn Xanax on DC
- cont fluoxetine
#GERD
-continue protonix
Dispo- per primary, pt requesting [facility]- PM&R c/s placed
Time spent coordinating care, review of plan of care with resident, personally reviewed records in EMR, med rec, consults, notes, labs, radiology, d/w nursing, son, surgery � 59 mins
Original Note:
Today's Communication/Plan
-
Resume Eliquis.
Continue antibiotics.
Continue low residue diet, and advance to regular diet.
Assessment / Plan
Assessment / Plan
IMPRESSION:
78-year-old female with PMHx significant for paroxysmal A-fib on Eliquis, chronic HFpEF, essential hypertension, stage III CKD, anxiety presented to the hospital for elective colon resection and laparoscopic hysterectomy with bilateral
hwkgibbj-[id number]-vscmoz day 3 today.
PLAN:
Left tubo-ovarian abscess secondary to diverticular disease
S/p robotic low anterior resection with takedown of splenic flexure, intracorporeal anastomosis on 04/15/2024, day 3
S/p robotic assisted total laparoscopic hysterectomy and bilateral salpingo-oophorectomy, extensive pelvic lysis of adhesions on 04/15/2024, day 3
Patient on meropenem and micafungin, stop date added for 04/20/24
Pain control with Tylenol, oxycodone
Diet advanced to regular.
Mild right eye corneal abrasion
Started ciprofloxacin eyedrops on 04/15/2024.
Today she denies having any symptoms in her eyes.
Paroxysmal atrial fibrillation
Age greater than or equal to 80, weight less than or equal to 60, serum creatinine at 0.6-criteria for Eliquis 2.5 mg met.
Eliquis dose changed from 5 mg p.o. twice daily to 2.5 mg p.o. twice daily.
Follow-up with pastoral ministries professor after discharge from rehab for adjustment of Eliquis dosing.
Continue metoprolol.
Chronic HFpEF
Continue Entresto, spironolactone, metoprolol.
Lasix home dose resumed-Thursday, Thursday, Thursday.
Essential hypertension
Continue home metoprolol succinate
Hematuria
Resolved, Gaona removed.
CKD 3
Renal function at baseline
Glaucoma
Continue latanoprost
Anxiety/depression
Continue Xanax, fluoxetine
GERD
continue PPI
DVT prophylaxis�heparin.
Diet: regular
Full code.
Anticipated Discharge: 24 - 48 hours
Subjective/Interval History
-
Date of Service: April 18, 2024
Overnight, patient has no complaints.
She states that occasionally she gets a bout of dry cough that lasts for about 5 to 10 minutes which causes her stool incontinence.
Her appetite is improving and she is tolerating low residue diet well.
Objective Data
-
Labs:
Laboratory Results
04/18/24
04:42
WBC 6.6
Hgb 11.4 L
Hct 35.1 L
Plt Count 258
Sodium 134 L
Potassium 3.5
Chloride 100
Carbon Dioxide 28
BUN 13
Creatinine 0.6
Glucose 80
Calcium 8.3 L
Total Bilirubin 0.9
AST 31
ALT 15
Alkaline Phosphatase 52
Vital Signs:
Vital Signs
Temp Pulse Resp BP Pulse Ox
98.1 F 96 18 139/81 97
04/17/24 23:15 04/17/24 23:15 04/17/24 23:15 04/17/24 23:15 04/17/24 23:15
I&O
04/17/24 04/18/24 04/19/24
06:59 06:59 06:59
Intake Total 1540 / 1540 900 / 900
Output Total 500 / 500 650 / 650
Balance 1040 / 1040 250 / 250
Review of Systems
-
History Source: Patient
Constitutional: Reports No Symptoms
EENT: Reports No Symptoms Reported
Respiratory: Reports Cough
Cardiac: Reports No Symptoms
Abdomen/GI: Reports Other (loose stools and stress incontinence.)
Genitourinary: Reports No Symptoms
Musculoskeletal: Reports No Symptoms
Skin: Reports No Symptoms
Neuro: Reports No Symptoms
Allergy / Immunology: Reports No Symptoms
Physical Exam
-
General: No Apparent Distress and Comfortable
HEENT: Moist Mucous Membranes
Respiratory: Clear to Auscultation; Negative Wheezes, Rales or Rhonchi
Cardiac: S1/S2 and Irregular Rhythm; Negative Murmur, Rub or Gallop
GI: Soft, Nontender, Nondistended and Normal Bowel Sounds
Genito-urinary: No Costovertebral Tender
Musculoskeletal: No Edema
Skin: Warm
Neuro: AO x 3
Hematologic / Lymphatic: No Lymphadenopathy
Psych: Calm
--- NOTE | 2024-04-18 07:52 | W.PN.GYNONC ---
Today's Communication
-
NA
Impression / Plan
-
78-year-old with left lower quadrant pelvic abscess which is pericolonic /left tubo-ovarian abscess
POD day 3 s/p robotic assisted low anterior resection with TLH BSO, recovering well
VSS , afebrile and labs stable. wbc is normal, and hgb stable.
continue low residue
continue incentive spirometry
encourage OOB and ambulation,
appreciate PT and OT consult
Start eliquis on Thursday
continue abx for total of 5 days post op as per ID
Roberth Hanks MD
Real Estate Associate Oncology
[phone]
Subjective / Interval History
-
POD3
she had a small BM this am. rena diet ok
c/o lower abdominal pain with coughing
sitting on the commode for the visit today
Objective Data
-
Lab Results:
04/18/24 04:42
04/18/24 04:42
Physical Exam
Vital Signs / I&O
Vitals
Temp Pulse Resp BP Pulse Ox
98.1 F 96 18 139/81 97
04/17/24 23:15 04/17/24 23:15 04/17/24 23:15 04/17/24 23:15 04/17/24 23:15
I&O
04/16/24 04/17/24 04/18/24 04/19/24
06:59 06:59 06:59 06:59
Intake Total 1180 / 1180 1540 / 1540 900 / 900
Output Total 710 / 710 500 / 500 650 / 650
Balance 470 / 470 1040 / 1040 250 / 250
Physical Exam
General: No Apparent Distress
Respiratory: Clear and Non Labored Respirations
Cardiac: S1/S2 and Regular Rhythm
GI: Soft, Non Tender and Other (port sites look intact)
Neuro: Alert and AO x 3
Psych: Calm and Intact Judgement
Data Reviewed
-
Lab Data: Labs Reviewed
--- NOTE | 2024-04-18 09:08 | PN.CDI ---
CDI
- -
CDI:
Physician Documentation Request
Admit Date: 04/14/24 13:24
Dear Colorectal,
Please review the following and provide your response in the progress notes.
Clinical Indicators:
- 04/14 40meq IV Potassium chloride given
- Documented lab results:
Laboratory Tests
04/14/24 04/15/24
15:29 04:05
Potassium 3.3 L 3.9
Please provide a diagnosis for the above lab values that were monitored and treatment rendered:
Hypokalemia
Clinically insignificant abnormal lab value
Other
Use of terms such as suspected, likely, concern for, or probable (associated with a specific diagnosis that is being evaluated, monitored, or treated as if it exists) are acceptable and can be coded in the inpatient setting, when documented at the
time of discharge.
Thank you,
Harsh Jhaveri RN
CDI Specialist
Please use your independent medical judgment in providing your response.
[2024-04-18] MEDS: CILOXAN 0.3% OPHTHALMIC SOLUTION 1 DROP OPHTH ×2 (10:34→16:04)
[2024-04-18] MEDS: TIMOPTIC 0.5% OPHTHALMIC SOLUTION 1 DROP BOTH EYES ×2 (10:34→22:09)
[2024-04-18] MEDS: PROTONIX 40 MG PO (10:35)
[2024-04-18] MEDS: ENTRESTO 24 MG/26 MG 1 TAB PO ×2 (10:35→22:08)
[2024-04-18] MEDS: TOPROL XL 150 MG PO (10:35)
[2024-04-18] MEDS: PROZAC 20 MG PO (10:39)
[2024-04-18] MEDS: ALDACTONE 25 MG PO (10:39)
[2024-04-18] MEDS: MYCAMINE 105 MG IV (10:40)
[2024-04-18] MEDS: LASIX 20 MG PO (10:45)
--- NOTE | 2024-04-18 11:15 | W.PN.CRS1 ---
Today's Communication / Plan
-
restart eliquis
rehab placement
Assessment/Plan
-
78-year-old female with PMH of A-fib (on Eliquis), HTN, CKD, glaucoma, HFrEF, pulmonary hypertension and persistent left pelvic abscess likely related to the colon, possibly gynecological in origin, presented for elective surgery
POD 3 robotic LAR and DOUGLAS/BSO
AFVSS
WBC 6.6, Hb 11.4 from 10.9, Cr 0.6
� Continue low residue diet
� Continue pain control Tylenol, oxycodone, Dilaudid as needed
� Restart Eliquis today, d/c Lovenox
� OOB/IS; appreciate PT
�Appreciate [employer] Onc
-OR pathology pending
-Dispo�to rehab. Discussed with social work case manager who is sending referrals. Dr[facility] Discussed with son.
Subjective Data
Subjective Data
Date of Service: April 18, 2024
Patient states she feels 'good'. Her pain is controlled. She denies nausea or vomiting. She is tolerating a diet. She is not that hungry.
Objective Data
-
Vital Signs
Temp Pulse Resp BP Pulse Ox
98.4 F 100 17 143/81 96
04/18/24 07:20 04/18/24 07:20 04/18/24 07:20 04/18/24 07:20 04/18/24 07:20
Intake & Output
04/17/24 04/18/24 04/19/24
06:59 06:59 06:59
Intake Total 1540 / 1540 900 / 900
Output Total 500 / 500 650 / 650
Balance 1040 / 1040 250 / 250
Intake:
Oral fluids 1540 / 1540 900 / 900
Output:
Urine, Borjas 500 / 500 650 / 650
Other:
Number of approximated SMALL 3
amounts of urine
Number of approximated MODERATE 2
amounts of urine
Number of unmeasured liquid
stools
Rectum 1 3
Lab Results
04/18/24 04:42
04/18/24 04:42
Physical Exam
-
General: No Acute Distress and AOx3
Abdomen: Soft, Non Distended and Non Tender
Skin: Warm and Dry
Incision: Clear, Dry, Intact
--- NOTE | 2024-04-18 11:26 | CM ---
Addendum entered by Susanne Bryson 04/18/24 11:37:
IMM explained & signed. In chart
Original Note:
Patient chart reviewed.
CM consult completed
PT recommend acute vs. SNF
Spoke with Erna at [facility] - will look at chart
order placed for PM&R consult
CM spoke with elton Munson
referral to [facility] placed in [facility]
PLAN: ACUTE vs. SNF
[2024-04-18 13:50] VITALS: BP 149/80; PULSE 88; O2SAT 96
[2024-04-18 15:15] VITALS: BP 152/79
[2024-04-18] MEDS: XANAX 0.25 MG PO (22:08)
[2024-04-18] MEDS: XALATAN OPHTHALMIC SOLUTION 1 DROP BOTH EYES (22:10)
[2024-04-18] MEDS: ELIQUIS 2.5 MG PO (22:18)
[2024-04-18 23:10] VITALS: BP 141/82
[2024-04-19] MEDS: TYLENOL PO ×4 (00:55→20:03)
[2024-04-19] MEDS: CILOXAN 0.3% OPHTHALMIC SOLUTION 2 DROP OPHTH ×6 (02:46→20:04)
[2024-04-19] MEDS: MERREM 500 MG IV ×4 (03:19→19:57)
[2024-04-19] MEDS: TYLENOL 650 MG PO ×2 (03:19→08:41)
[2024-04-19] MEDS: STERILE WATER FOR INJECTION 10 ML IV ×4 (03:19→19:57)
[2024-04-19 05:35] VITALS: BMI 23.4
[2024-04-19 05:46] LABS: % Basophils 0.6 % (0-2); % Eosinophils 2.6 % (0-6); % Immature Granulocytes 0.8 % (0-0.5); % Lymphocytes 18.7 % (20.5-51.1); % Monocytes 10.5 % (1.7-9.3); % Neutrophils 66.8 % (42.2-75.2); Absolute Eosinophils 0.2 10^3/uL (0-0.7); Absolute Immature Granulocytes 0.1 10^3/uL (0-0.05); Absolute Lymphocytes 1.2 10^3/uL (1.2-3.4); Absolute Monocytes 0.7 10^3/uL (0.1-0.6); Absolute Neutrophils 4.2 10^3/uL (1.4-6.5); Hematocrit 36.5 % (37.0-47.0); Hemoglobin 11.6 g/dL (12.0-16.0); Mean Corp Hgb Conc. 31.8 g/dL (33.0-37.0); Mean Corpuscular Volume 91.3 fL (81.0-99.0); Mean Platelet Volume 11.1 fL (7.4-10.4); Nucleated Red Blood Cells % 0 %; Platelet Count 274 10^3/uL (130-400); Red Cell Dist. Width 14.9 % (11.5-14.5); White Blood Cell Count 6.2 10^3/uL (4.8-10.8)
[2024-04-19 06:15] LABS: ALT (SGPT) 14 U/L (0-35); AST (SGOT) 28 U/L (14-36); Albumin 2.4 g/dl (3.5-5.0); Alkaline Phosphatase 50 U/L (38-126); Blood Urea Nitrogen 10 mg/dl (7-17); Calcium 8.6 mg/dl (8.4-10.2); Carbon Dioxide 30 mmol/L (22-30); Chloride 99 mmol/L (98-107); Estimated Creatinine Clearance 62 ml/min; Glucose 90 mg/dl (70-99); Potassium 3.1 mmol/L (3.5-5.1); Sodium 137 mmol/L (135-145); Total Bilirubin 0.9 mg/dl (0.2-1.3); Total Protein 4.7 g/dl (6.3-8.2); eGFR > 60.00
[2024-04-19 07:33] VITALS: BP 154/77
[2024-04-19 08:24] VITALS: BMI 23.4
[2024-04-19] MEDS: PROTONIX 40 MG PO (08:40)
[2024-04-19] MEDS: ENTRESTO 24 MG/26 MG 1 TAB PO ×2 (08:40→20:01)
[2024-04-19] MEDS: ALDACTONE 25 MG PO (08:40)
[2024-04-19] MEDS: TOPROL XL 150 MG PO (08:41)
[2024-04-19] MEDS: PROZAC 20 MG PO (08:41)
[2024-04-19] MEDS: ELIQUIS 2.5 MG PO ×2 (08:42→20:01)
[2024-04-19] MEDS: TIMOPTIC 0.5% OPHTHALMIC SOLUTION 2 DROP BOTH EYES (08:43)
--- NOTE | 2024-04-19 09:20 | W.PN.HOSP.TC ---
Addendum entered and electronically signed by Abilio Chilel MD 04/19/24 23:48:
Attending Addendum-
I saw and evaluated the patient. I reviewed the resident�s note and agree with findings and plan as documented in the resident�s note. Sub: patient seen with son present. feels weak but appetite improving. Full 12 point ROS reviewed and negative
except as documented Exam: Vitals reviewed in chart GEN-NAD heart RRR lungs decreased at bases fine crackles b/l abd incision CDI LE trace b/l LE edema
PLAN:
# Left tubo-ovarian abscess secondary to diverticular disease
-Status post robotic low anterior resection with takedown of splenic flexure, intracorporeal anastomosis on 04/15 POD#4
-Status post robotic assisted total laparoscopic hysterectomy and bilateral salpingo-oophorectomy, extensive pelvic lysis of adhesions on 04/15 POD # 4
-cont meropenem and micafungin -> 04/02 0
-Pain control with Tylenol, oxycodone
-advance diet per primary
# Hypokalemia
- replete
- repeat BMP in am
# Mild right eye corneal abrasion
to complete ciprofloxacin eyedrops
#Paroxysmal atrial fibrillation
- resume Eliquis
- Continue metoprolol
# Hyponatremia
- resolved
- cont diuretics
- repeat BMP in am
# Urinary Retention
- gaona dc'd
- urinating as usual
#Chronic HFpEF
-Continue Entresto
-Restarted Lasix Thursday
-restart spironolactone
-restart Farxiga on DC
#Essential hypertension
Continue home metoprolol succinate
#CKD 3
-Renal function at baseline
# Glaucoma
-Continue latanoprost
# Anxiety/depression
- cont prn Xanax on DC
- cont fluoxetine
#GERD
-continue protonix
Dispo- for [facility] in am per primary
Thank you for allowing us to participate in this patients care. Signing off. Please call with questions!
Time spent coordinating care, review of plan of care with resident, personally reviewed records in EMR, med rec, consults, notes, labs, radiology, d/w nursing, son, surgery � 54 mins
Original Note:
Today's Communication/Plan
-
Medicine team signing off.
Assessment / Plan
Assessment / Plan
IMPRESSION:
78-year-old female with PMHx significant for paroxysmal A-fib on Eliquis, chronic HFpEF, essential hypertension, stage III CKD, anxiety presented to the hospital for elective colon resection and laparoscopic hysterectomy with bilateral
whyzemsz-sgwgzpwjskid-pzpzjk day 3 today.
PLAN:
Left tubo-ovarian abscess secondary to diverticular disease
S/p robotic low anterior resection with takedown of splenic flexure, intracorporeal anastomosis on 04/15/2024, day 3
S/p robotic assisted total laparoscopic hysterectomy and bilateral salpingo-oophorectomy, extensive pelvic lysis of adhesions on 04/15/2024, day 3
Patient on meropenem and micafungin, stop date added for 04/20/24
Pain control with Tylenol, oxycodone
Diet advanced to regular.
Mild right eye corneal abrasion
Started ciprofloxacin eyedrops on 04/15/2024.
Today she denies having any symptoms in her eyes.
Paroxysmal atrial fibrillation
Age greater than or equal to 80, weight less than or equal to 60, serum creatinine at 0.6-criteria for Eliquis 2.5 mg met.
Eliquis dose changed from 5 mg p.o. twice daily to 2.5 mg p.o. twice daily.
Follow-up with paper final inspector after discharge from rehab for adjustment of Eliquis dosing.
Continue metoprolol.
Chronic HFpEF
Continue Entresto, spironolactone, metoprolol.
Lasix home dose resumed-Thursday, Thursday, Thursday.
Dapagliflozin to be resumed once patient starts her regular diet.
Essential hypertension
Continue home metoprolol succinate
Hematuria
Resolved, Gaona removed.
CKD 3
Renal function at baseline
Glaucoma
Continue latanoprost
Anxiety/depression
Continue Xanax, fluoxetine
GERD
continue PPI
DVT prophylaxis�heparin.
Diet: regular
Full code.
Anticipated Discharge: Within 24 hours
Subjective/Interval History
-
Date of Service: April 19, 2024
No complaints overnight, dry cough improved.
Objective Data
-
Labs:
Laboratory Results
04/19/24
05:19
WBC 6.2
Hgb 11.6 L
Hct 36.5 L
Plt Count 274
Sodium 137
Potassium 3.1 L
Chloride 99
Carbon Dioxide 30
BUN 10
Creatinine 0.6
Glucose 90
Calcium 8.6
Total Bilirubin 0.9
AST 28
ALT 14
Alkaline Phosphatase 50
Vital Signs:
Vital Signs
Temp Pulse Resp BP Pulse Ox
97.7 F 89 16 154/77 98
04/19/24 07:33 04/19/24 07:33 04/19/24 07:33 04/19/24 07:33 04/19/24 07:33
I&O
04/18/24 04/19/24 04/20/24
06:59 06:59 06:59
Intake Total 900 / 900 1020 / 1020
Output Total 650 / 650
Balance 250 / 250 1020 / 1020
Review of Systems
-
History Source: Patient
EENT: Reports No Symptoms Reported
Respiratory: Reports Cough
Cardiac: Reports No Symptoms
Abdomen/GI: Reports Abdominal Pain and Other (Mild stress incontinence of bowels.)
Breast: Reports No Symptoms
Genitourinary: Reports No Symptoms
Musculoskeletal: Reports No Symptoms
Skin: Reports No Symptoms
Neuro: Reports No Symptoms
Endocrine: Reports No Symptoms
Hematologic / Lymphatic: Reports No Symptoms
Allergy / Immunology: Reports No Symptoms
Psych: Reports Depressed
Physical Exam
-
General: No Apparent Distress and Comfortable
HEENT: Normocephalic
Respiratory: Clear to Auscultation, Rhonchi and Other (Palpable crepitus on the chest wall.); Negative Wheezes or Rales
Cardiac: Regular Rhythm and S1/S2; Negative Murmur, Rub or Gallop
GI: Soft, Nontender, Nondistended and Normal Bowel Sounds
Musculoskeletal: Other (1+ pitting edema bilateral lower extremities.)
Skin: Warm
Neuro: Awake
Psych: Calm
--- NOTE | 2024-04-19 09:32 | W.PN.CRS1 ---
Today's Communication / Plan
-
dispo to rehab, hopefully today
Assessment/Plan
-
78-year-old female with PMH of A-fib (on Eliquis), HTN, CKD, glaucoma, HFrEF, pulmonary hypertension and persistent left pelvic abscess likely related to the colon, possibly gynecological in origin, presented for elective surgery
POD 4 robotic LAR and DOUGLAS/BSO
AFVSS
WBC 6.2, Hb 11.6 from 10.9, Cr 0.6
� Continue low residue diet
� Continue pain control Tylenol, oxycodone, Dilaudid as needed
� Continue Eliquis 2.5 BID (dose altered by hospitalist)
� OOB/IS; appreciate PT
� Appreciate [facility]
- OR pathology pending
- Dispo�to rehab as soon as placement available. Discussed with case resolution specialist who is sending referrals. Dr[facility] Discussed with son.
Subjective Data
Subjective Data
Date of Service: April 19, 2024
Patient states she is having flatus. She has no nausea. Her pain is controlled.
Objective Data
-
Vital Signs
Temp Pulse Resp BP Pulse Ox
97.7 F 89 16 154/77 98
04/19/24 07:33 04/19/24 07:33 04/19/24 07:33 04/19/24 07:33 04/19/24 07:33
Intake & Output
04/18/24 04/19/24 04/20/24
06:59 06:59 06:59
Intake Total 900 / 900 1020 / 1020
Output Total 650 / 650
Balance 250 / 250 1020 / 1020
Intake:
Oral fluids 900 / 900 1020 / 1020
Output:
Urine, Borjas 650 / 650
Other:
Number of approximated SMALL 3
amounts of urine
Number of approximated MODERATE 2 5
amounts of urine
Number of unmeasured liquid
stools
Rectum 3 1
Lab Results
04/19/24 05:19
04/19/24 05:19
Physical Exam
-
General: No Acute Distress and AOx3
Abdomen: Soft, Non Distended and Non Tender
Skin: Warm and Dry
Incision: Clear, Dry, Intact
--- NOTE | 2024-04-19 09:52 | W.PN.GYNONC ---
Today's Communication
-
replete K
Impression / Plan
-
78-year-old with left lower quadrant pelvic abscess which is pericolonic /left tubo-ovarian abscess
POD 4 s/p robotic assisted low anterior resection with TLH BSO, recovering well
VSS , afebrile and labs stable. wbc is normal, and hgb stable.
continue low residue
continue incentive spirometry
encourage OOB and ambulation,
appreciate PT and OT consult
Start eliquis on Thursday, 2.5 mg BID
continue abx for total of 5 days post op as per ID
Replete K orally today, consider recheck bmp later today
ok for dc from our perspective , awaiting rehab placement
Roberth Hanks MD
[facility]
[phone]
Subjective / Interval History
-
doing well, rena diet ok, pain improved.
Objective Data
-
Lab Results:
04/19/24 05:19
04/19/24 05:19
Physical Exam
Vital Signs / I&O
Vitals
Temp Pulse Resp BP Pulse Ox
97.7 F 89 16 154/77 98
04/19/24 07:33 04/19/24 07:33 04/19/24 07:33 04/19/24 07:33 04/19/24 07:33
I&O
04/17/24 04/18/24 04/19/24 04/20/24
06:59 06:59 06:59 06:59
Intake Total 1540 / 1540 900 / 900 1020 / 1020
Output Total 500 / 500 650 / 650
Balance 1040 / 1040 250 / 250 1020 / 1020
Physical Exam
General: No Apparent Distress
Respiratory: Clear
Cardiac: S1/S2 and Regular Rhythm
GI: Soft, Non Tender and Non Distended
Psych: Calm and Intact Judgement
Data Reviewed
-
Lab Data: Labs Reviewed
[2024-04-19] MEDS: MYCAMINE 105 MG IV (10:47)
[2024-04-19 11:46] VITALS: BP 122/70; PULSE 58; O2SAT 100
--- NOTE | 2024-04-19 13:46 | CM ---
Met with patient and son
PT rec acute rehab.
PM&R consult ordered
Spoke with Erna gandhi [facility], will follow-up
PLAN: Await PM&R eval for acute rehab
[2024-04-19 15:32] VITALS: BP 130/81
[2024-04-19] MEDS: TIMOPTIC 0.5% OPHTHALMIC SOLUTION 1 DROP BOTH EYES (20:02)
[2024-04-19] MEDS: XANAX 0.25 MG PO (22:26)
[2024-04-19] MEDS: XALATAN OPHTHALMIC SOLUTION 1 DROP BOTH EYES (22:27)
--- NOTE | 2024-04-19 22:44 | CON.MD ---
Consultation - Medical
-
Referring Provider: [facility]
Chief Complaint: Debility
History of Present Illness: Regla Huggins is an 78 year old female admitted 04/14/2024 for a robotic sigmoid resection and left salpingo-oophorectomy and possible hysterectomy and BSO for known recurrent sigmoid diverticulitis and pelvic abscess
with Pseudomonas aeruginosa, Klebsiella-ESBL and Saccharomyces cerivisiae. S/P 04/15/24 Robotic-assisted total laparoscopic hysterectomy with bilateral salpingo-oophorectomy, extensive pelvic lysis of adhesions by Dr. Hanks, with ADL and amatory
dysfunction. To complete meropenem and micafungin 04/20/2024.
Past Medical History: CHF, GERD, A-fib, hypertension, sigmoid diverticulitis, CKD, glaucoma
Procedure History: Right thoracentesis, cholecystectomy, left pelvic abscess drainage, endometrial biopsy
Family History: Cancer
Social History:
Functional Level Premorbidly: previously Independent with all activities and ambulating with single-point cane outside of house
Functional Level Currently: Min assist for all activities
Tobacco: Former
Alcohol: Occasional
Drug use: Denies
Lives with: Partner
24-hour assistance available: Yes
Number of floors: Split-level
# steps to enter: 6 steps to door, 6 steps to living area/bed/bath
# steps to second floor:split level- 6 steps
Potential First floor set up: No
Driving: yes
Occupation: Retired
Allergies:
Allergy/AdvReac Type Severity Reaction Status Date / Time
amlodipine Allergy stomach Verified 04/14/24 18:40
cramps
lisinopril Allergy abdominal Verified 04/14/24 18:40
cramping
unknown drug Allergy Unknown Uncoded 03/28/24 21:51
Review of Systems:
Constitutional: (x) fatigue
Eye: (x) Normal _
Ear/Nose/Throat: (x) Normal _
Respiratory: (x) Normal _
Cardiovascular: (x) A-fib with RV history
Gastrointestinal: (x) status post surgery with improved stomach pain.
Genitourinary: (x) Normal _
Musculoskeletal: (x) Normal _
Integumentary: (x) Normal _
Neurologic: (x) Normal _
Psychiatric: (x) Normal _
Endocrine: (x) Normal _
Hematologic/Lymphatic: (x) Normal _
Allergic/Immunologic: (x) Normal _
Medications:
Active Current Visit Medication List
Category Date Time Status
Acetaminophen [Tylenol] Med 04/15/24 16:00 Active
650 mg PO Q4
Alprazolam [Xanax] Med 04/14/24 18:39 Active
0.25 mg PO BIDPRN PRN
Alprazolam [Xanax] Med 04/14/24 22:00 Active
0.25 mg PO HS
Apixaban [Eliquis] Med 04/18/24 20:00 Active
2.5 mg PO BID
Ciprofloxacin HCl [Ciloxan 0.3% Ophthalmic Solution] Med 04/15/24 17:00 Active
See Dose Instructions OPHTH Q4H
Fluoxetine HCl [Prozac] Med 04/15/24 08:00 Active
20 mg PO DAILY
Flush (0.9% Sodium Chloride) [Flush (Nss)] Med 04/14/24 19:00 Active
See Dose Instructions IV PER PROTOCOL
Furosemide [Lasix] Med 04/18/24 08:00 Active
20 mg PO MoWeFr@0800
HYDROmorphone [Dilaudid] Med 04/15/24 12:41 Active
0.25 mg IV Q4HPRN PRN
Latanoprost [Xalatan Ophthalmic Solution] Med 04/14/24 22:00 Active
See Dose Instructions BOTH EYES HS
Meropenem [Merrem] Med 04/14/24 20:00 Active
500 mg IV Q6H
Metoprolol Xl [Toprol Xl] Med 04/15/24 08:00 Active
150 mg PO DAILY
Micafungin Sodium [Mycamine] 100 mg Med 04/15/24 10:00 Active
Dextrose 5%/Water 100 ml [D5w] 100 ml
IV Q24H
Ondansetron Injectable [Zofran] Med 04/14/24 19:02 Active
4 mg IV Q6HPRN PRN
Oxycodone [Roxicodone] Med 04/15/24 12:41 Active
5 mg PO Q4HPRN PRN
Pantoprazole [Protonix] Med 04/15/24 08:00 Active
40 mg PO DAILY
Sacubitril 24/Valsartan 26 [Entresto 24 mg/26 mg] Med 04/14/24 20:00 Active
1 tab PO BID
Spironolactone [Aldactone] Med 04/17/24 12:00 Active
25 mg PO DAILY
Sterile Water [Sterile Water For Injection] Med 04/14/24 20:00 Active
10 ml IV Q6H
Timolol Maleate 0.5% [Timoptic 0.5% Ophthalmic Solution Med 04/14/24 20:00 Active
]
See Dose Instructions BOTH EYES BID
Vitals:
Temp Pulse Resp BP Pulse Ox
97.3 F 90 18 130/81 97
04/19/24 15:32 04/19/24 15:32 04/19/24 15:32 04/19/24 15:32 04/19/24 20:19
Height 5 ft 3 in
Actual Weight 59.92 kg
Body Mass Index (BMI) 23.4
Physical Exam:
General Appearance/Observation: Well-developed, well-nourished female in no apparent distress.
Pain/Comfort Assessment: Slight abdominal pain, much improved..
Mood/Affect: Appropriate
Integumentary/Operative Site: Abdominal puncture sites healing well.
Eyes: Conjunctiva/Lids: normal Pupils: pupils equal round
Ears/Nose/Throat: oral mucosa moist, throat clear. Lips/Teeth/Gums: normal
Cardiovascular: Heart: regular, no murmur
Pulses: dorsalis pedis 2+ bilaterally
Respiratory: Respiratory Effort/Chest Expansion: normal Auscultation: mild coarse sounds right lower lobe
Gastrointestinal: abdomen not tender, no distension, normal abdominal bowel sounds
Genitourinary: No Borjas
Extremities: Edema: None Cyanosis: None Trophic changes: None
Neurology Exam:
Orientation: Alert, Oriented to self, Time, Place
Memory: Intact for immediate medical concerns
Comprehension: Intact
Two step command: Intact
Cranial Nerves:
CNII: Pupillary light reflex: Intact Visual Field: NT
CN III, IV, : Extraocular muscles: Intact
CN V: Facial Sensation at Forehead: Intact, Maxilla: Intact, Mandible: Intact
CN VII: Facial movement: Symmetric
CN VIII: Hearing: Normal
CN IX/X: Speech & swallow: Normal, Position of Uvula: Midline
CN XI: Shoulder shrug: Symmetric
CN XII: Tongue protrusion: Midline
Sensory:
Light touch: Intact in bilateral upper and lower extremities
Reflexes:
Biceps: absent bilaterally
Brachioradialis: absent bilaterally
Triceps: absent bilaterally
Patellar: absent bilaterally
Achilles: absent bilaterally
Clonus: None
Melissa: Negative bilaterally
Cerebellar: Dysmetria/Ataxia: None
Musculoskeletal: Motor: (Manual muscle scale 0-5)�
Muscle SA EF WE EE FF FA HF KE DF EHL PF
Right� 4 4 4 4 4 4 4 4 4
Left 4 4 4 4 4 4 4 4 4
Tone: Normal in all extremities
Range of Motion: Passively within normal limits in all extremities
Lab Results:
Laboratory Data
04/19/24 05:19
04/19/24 05:19
PT 14.8 Sec (11.4-14.6) H 04/14/24 15:29
INR 1.11 04/14/24 15:29
APTT 37.1 Sec (23.4-35.0) H 04/14/24 15:29
Total Bilirubin 0.9 mg/dl (0.2-1.3) 04/19/24 05:19
AST 28 U/L (14-36) 04/19/24 05:19
ALT 14 U/L (0-35) 04/19/24 05:19
Alkaline Phosphatase 50 U/L (38-126) 04/19/24 05:19
Total Protein 4.7 g/dl (6.3-8.2) L 04/19/24 05:19
Albumin 2.4 g/dl (3.5-5.0) L 04/19/24 05:19
Diagnostic Results: as per HPI
Assessment:
78 year old female with known recurrent sigmoid diverticulitis and pelvic abscess, recent acute on chronic CHF and A-Fib s/p 04/15/24 Robotic-assisted total laparoscopic hysterectomy with bilateral
salpingo-oophorectomy, extensive pelvic lysis of adhesions by Dr. Hanks, with ADL and ambulatory dysfunction.
Plan
PT/OT to increase independence with ADLs, improve balance, coordination, endurance, strength, mobility, community reintegration, decreased burden of care on others and family education.
Intraabdominal Abscess/Peridiverticular/tubo-ovarian abscess - likely diverticular.
-s/p 04/15/24 Robotic-assisted total laparoscopic hysterectomy with bilateral salpingo-oophorectomy, extensive pelvic lysis of adhesions by Dr. Hanks, doing well
-Completing micafungin and meropenem 04/20/2024
Paroxysmal atrial fibrillation: metoprolol succinate 150 mg daily. Eliquis 2.5 mg twice daily
Chronic systolic Heart failure: Entresto/Aldactone as part of GDMT, Lasix 20 mg p.o. Thursday/Thursday/Thursday, spironolactone 25 mg daily
-TTE showing EF 30-35%, hypokinesis of mid to apical arredondo. mod pulm HTN
Bilateral pleural effusion history: Monitor
Hypokalemia: Replacement
Psych: Xanax 0.25 at bedtime. Prozac at 20 mg daily. Mood improved as she has been feeling better.
Skin: monitor for pressure sores/rashes/lesions.
Pain: acetaminophen 650 mg every 4 hours, consider decreasing to keep total Tylenol less than 3000 mg a day or make as needed..
Bowel: Monitor off medication
Bladder: Time void, PVRs, PRN straight cath. Retention history
GI Prophylaxis: Pantoprazole
DVT Prophylaxis: mechanical and Eliquis
Pulmonary: Incentive spirometry
Safety: Continue to reinforce assistance with all transfers.
Code Status: Full code
Dispo (date/plan/equipment needs): Home with family care. Social history reviewed.
Functional and Medical Goals: Modified Independent with ADL�s, ambulation, transfers
Discharge Destination: Acute inpatient rehabilitation
Summary of recommendations:
Discharge Destination: Acute inpatient rehabilitation
Intraabdominal Abscess/Peridiverticular/tubo-ovarian abscess - likely diverticular.
-s/p 04/15/24 Robotic-assisted total laparoscopic hysterectomy with bilateral salpingo-oophorectomy, extensive pelvic lysis of adhesions by Dr. Hanks, doing well
-Completing micafungin and meropenem 04/20/2024
Paroxysmal atrial fibrillation: metoprolol succinate 150 mg daily. Eliquis 2.5 mg twice daily
Acute on Chronic systolic Heart failure: Entresto/Aldactone as part of GDMT, Lasix 20 mg p.o. Thursday/Thursday/Thursday, spironolactone 25 mg daily
-TTE showing EF 30-35%, hypokinesis of mid to apical arredondo. mod pulm HTN
Bilateral pleural effusion history: Monitor
[2024-04-19 23:11] VITALS: BP 157/84
[2024-04-20] MEDS: TYLENOL PO ×6 (01:18→16:11)
[2024-04-20] MEDS: MERREM 500 MG IV ×4 (01:55→21:07)
[2024-04-20] MEDS: STERILE WATER FOR INJECTION 10 ML IV ×4 (01:55→21:07)
[2024-04-20] MEDS: CILOXAN 0.3% OPHTHALMIC SOLUTION 2 DROP OPHTH ×6 (01:57→21:08)
[2024-04-20 07:57] VITALS: BP 152/90
[2024-04-20 08:49] VITALS: BP 149/94
[2024-04-20] MEDS: KCL ELIXIR 40 MEQ PO (08:50)
[2024-04-20] MEDS: PROTONIX 40 MG PO (08:50)
[2024-04-20] MEDS: ELIQUIS 2.5 MG PO ×2 (08:50→21:07)
[2024-04-20] MEDS: PROZAC 20 MG PO (08:50)
[2024-04-20] MEDS: ENTRESTO 24 MG/26 MG 1 TAB PO ×2 (08:51→21:06)
[2024-04-20] MEDS: ALDACTONE 25 MG PO (08:51)
[2024-04-20] MEDS: TOPROL XL 150 MG PO (08:51)
[2024-04-20] MEDS: LASIX 20 MG PO (08:54)
[2024-04-20] MEDS: TIMOPTIC 0.5% OPHTHALMIC SOLUTION 1 DROP BOTH EYES ×2 (08:55→21:08)
[2024-04-20 09:17] VITALS: BMI 23.4
[2024-04-20 10:06] LABS: % Basophils 0.7 % (0-2); % Immature Granulocytes 0.5 % (0-0.5); % Lymphocytes 20.8 % (20.5-51.1); % Monocytes 10.3 % (1.7-9.3); % Neutrophils 65.7 % (42.2-75.2); Absolute Basophils 0.1 10^3/uL (0-0.2); Absolute Eosinophils 0.2 10^3/uL (0-0.7); Absolute Lymphocytes 1.7 10^3/uL (1.2-3.4); Absolute Monocytes 0.8 10^3/uL (0.1-0.6); Absolute Neutrophils 5.4 10^3/uL (1.4-6.5); Hematocrit 40.3 % (37.0-47.0); Hemoglobin 13.3 g/dL (12.0-16.0); Mean Corpuscular Hgb 29.8 pg (27.0-31.0); Mean Corpuscular Volume 90.2 fL (81.0-99.0); Nucleated Red Blood Cells % 0 %; Platelet Count 432 10^3/uL (130-400); Red Blood Cell Count 4.47 10^6/uL (4.20-5.40); Red Cell Dist. Width 14.9 % (11.5-14.5); White Blood Cell Count 8.2 10^3/uL (4.8-10.8)
--- NOTE | 2024-04-20 10:06 | W.PN.CRS1 ---
Today's Communication / Plan
-
discharge
Assessment/Plan
-
78-year-old female with PMH of A-fib (on Eliquis), HTN, CKD, glaucoma, HFrEF, pulmonary hypertension and persistent left pelvic abscess likely related to the colon, possibly gynecological in origin, presented for elective surgery
POD 5 robotic LAR and DOUGLAS/BSO
AFVSS
no labs today
� Continue low residue diet
� Continue pain control Tylenol, oxycodone, Dilaudid as needed
� Continue Eliquis 2.5 BID (dose altered by hospitalist)
� OOB/IS; appreciate PT
� Appreciate [facility]
- OR pathology pending
- Dispo�to rehab as soon as placement available. Discussed with case hardener. [facility] accepted today. Will discharge. Discussed with patient and son.
Subjective Data
Subjective Data
Date of Service: April 20, 2024
Patient states she feels well today. She currently has no complaints. She denies nausea or vomiting. She has bowel function.
Objective Data
-
Vital Signs
Temp Pulse Resp BP Pulse Ox
97.4 F 92 16 152/90 95
04/20/24 07:57 04/20/24 08:54 04/20/24 07:57 04/20/24 08:54 04/20/24 07:57
Intake & Output
04/19/24 04/20/24 04/21/24
06:59 06:59 06:59
Intake Total 1020 / 1020 1320 / 1320
Output Total / 6
Balance 1020 / 1020 1314 / 1314
Intake:
Oral fluids 1020 / 1020 1320 / 1320
Output:
Urine, Voided 6 / 6
Other:
Number of approximated MODERATE 5
amounts of urine
How many times incontinent 5
SMALL amount urine
Number of unmeasured liquid
stools
Rectum 1 5
Lab Results
04/20/24 09:14
Physical Exam
-
General: No Acute Distress
Abdomen: Soft, Non Distended and Non Tender
[2024-04-20 10:10] LABS: Blood Urea Nitrogen 7 mg/dl (7-17); Calcium 9.1 mg/dl (8.4-10.2); Carbon Dioxide 31 mmol/L (22-30); Chloride 98 mmol/L (98-107); Estimated Creatinine Clearance 62 ml/min; Glucose 89 mg/dl (70-99); Potassium 3.4 mmol/L (3.5-5.1); Sodium 136 mmol/L (135-145); eGFR > 60.00
--- NOTE | 2024-04-20 10:14 | W.DS.TRANS ---
DC Summary - Probation And Parole Officer
-
Discharge Instructions:
Discharge Diagnosis/Procedures Pelvic abscess
Robotic low anterior resection with takedown of
splenic flexure, intracorporeal anastomosis /
Robotic hysterectomy and bilateral salpingo-
oopherectomy
Diet Low Residue
Activity No strenuous activity
Additional Activity No lifting over 10lbs (gallon of milk)
Driving Restrictions No driving for 1 week
Bathing Restrictions OK to Shower
Wound Care Allow glue to naturally fall off. Do not pick at
incisions.
Instructions: Low Fiber Diet
Stand-Alone Forms:
Changes to Home Medications: Yes
Discharge Medications:
DC Medications w/original date entered in [employer]
cholecalciferol (vitamin D3) 50 mcg (2,000 unit) tablet (Vitamin D3) 50 mcg PO MOTUWETHFR supplement 12/08/23
timolol maleate 0.5 % eye gel forming solution 1 drp BOTH EYES DAILY eye condition 12/08/23
Lactobacillus rhamnosus GG 10 billion cell capsule (Culturelle) 1 cap PO DAILY Supplement 12/17/23
fluoxetine 20 mg capsule 20 mg PO DAILY Mental Health/Anxiety 02/23/24
furosemide 20 mg tablet 20 mg PO MOWEFR Fluid Retention/Swelling 02/23/24
omeprazole 40 mg capsule,delayed release 40 mg PO DAILY 30 days #30 caps 03/20/24
latanoprost 0.005 % eye drops 1 drp BOTH EYES HS Eye Condition 03/28/24
alprazolam 0.25 mg tablet (Xanax) 0.25 mg PO BID PRN anxiety #10 tabs 04/11/24
alprazolam 0.25 mg tablet (Xanax) 0.25 mg PO HS #10 tabs 04/11/24
dapagliflozin propanediol 10 mg tablet 10 mg PO DAILY Heart disease/condition #30 tabs 04/11/24
metoprolol succinate 100 mg tablet,extended release 24 hr 150 mg (1.5 x 100 mg) PO DAILY Heart disease/condition #30 tabs 04/11/24
sacubitril 24 mg-valsartan 26 mg tablet (Entresto) 1 tab PO BID Heart disease/condition #30 tabs 04/11/24
spironolactone 25 mg tablet 25 mg PO DAILY Heart disease/condition #30 tabs 04/11/24
apixaban 2.5 mg tablet (Eliquis) 2.5 mg PO BID Arrhythmia 30 days #60 tabs 04/18/24
Home Medication Changes
apixaban 2.5 mg tablet (Eliquis) 2.5 mg PO BID Arrhythmia 30 days #60 tabs 04/18/24
Pending Results: Yes
Additional Pending Results:
OR pathology
[2024-04-20 10:51] LABS: Magnesium 1.4 mg/dl (1.6-2.3)
--- NOTE | 2024-04-20 11:17 | CM ---
Addendum entered by Susanne Bryson 04/20/24 15:23:
Erna from [facility] called and spoke with Madeleine Priest will accept patient tomorrow, low mag/K
Labs in am.
Original Note:
Call [facility]
Dr[facility] Matta - accepted patient & bed available today
tt Mouna Leal
IMM explained & signed. In chart
[facility]
Report #: [phone]
Fax #: [phone]
[2024-04-20] MEDS: MYCAMINE 105 MG IV (11:40)
[2024-04-20] MEDS: CILOXAN 0.3% OPHTHALMIC SOLUTION OPHTH (14:13)
--- NOTE | 2024-04-20 14:20 | W.DCSUMMARY ---
Discharge Summary
Discharge Data
Date of Admission: 04/14/24
Date of Discharge: 04/20/24
-
Pending Results: Yes
Additional Pending Results:
pathology
Hospital Course
78-year-old female presents to [facility] for a robotic low anterior resection and robotic hysterectomy and bilateral salpingo-oophorectomy by Dr. Stan Griffith and Dr. Roberth Hanks. The patient tolerated the procedure well and was
brought back to the medical surgical floor. The hospitalist was consulted given her chronic medical issues including paroxysmal atrial fibrillation of which she is on Eliquis. On postop day 1 the patient's diet was advanced to a full liquid diet.
Her Borjas was discontinued and she voided without difficulty. Per previous infectious disease recommendations during her last hospital stay, a 5-day course of meropenem and micafungin was given to the patient. On postop day 3 the patient's Eliquis
was resumed. She was on a low residue diet. It was determined the patient could be discharged. The patient and her son wanted to go to a [facility] and the patient waited for 2 days of rehab evaluation and insurance approval. On postop day 5 the
patient was discharged to [facility]. All discharge instructions were discussed with the patient and son at bedside. All questions answered.
Discharge Plan
-
Patient Disposition: Acute Rehab Facility
Discharge Diagnosis/Procedures: Pelvic abscess
Robotic low anterior resection with takedown of splenic flexure, intracorporeal anastomosis / Robotic hysterectomy and bilateral salpingo-oopherectomy
Diet: Low Residue
Activity: No strenuous activity
Additional Activity: No lifting over 10lbs (gallon of milk)
Driving Restrictions: No driving for 1 week
Bathing Restrictions: OK to Shower
Wound Care: Allow glue to naturally fall off. Do not pick at incisions.
Activity Restrictions/Additional Instructions:
Prior to this hospital admission you were on Eliquis 5 mg twice daily. Postoperatively, as you are 78-year-old and your body weight is at 60 Kgs, which changed your Eliquis dosing to 2.5 mg twice daily. After your discharge from rehab, please
follow-up with your business attorney for Eliquis dose adjustment.
Your Farxiga is on hold until you finish your antibiotics and your appetite, eating pattern stabilizes. Will temporarily put the whole date to be May 01, but you can resume the medication as soon as you feel that your eating patterns have
returned back to normal and regular.
Instructions: Low Fiber Diet
Referrals:
Ck Griffith MD [Active] - in two weeks
Prince Maldonado MD [Family Provider] - in one week
Roberth Hanks MD [Active] - in two weeks
Additional Discharge Medication Instructions: Tylenol as needed for pain. Maximum dose of Tylenol is 4,000mg in 24 hours.
The dosing of your Eliquis has been changed by the hospitalist due to weight criteria. You have been prescribed 1 month of Eliquis. You will need to follow-up with your business attorney for your future doses to be adjusted accordingly.
Prescriptions:
New
Eliquis 2.5 mg Tablet
2.5 mg PO BID 30 Days Qty: 60 0RF
Continued
timolol maleate 0.5 % Gel Forming Solution
1 drp BOTH EYES DAILY
cholecalciferol (vitamin D3) [Vitamin D3] 50 mcg (2,000 unit) Tablet
50 mcg PO MOTUWETHFR
Culturelle 10 billion cell Capsule
1 cap PO DAILY
fluoxetine 20 mg Capsule
20 mg PO DAILY
furosemide 20 mg tablet
20 mg PO MOWEFR
omeprazole 40 mg capsule,delayed release(DR/EC)
40 mg PO DAILY 30 Days Qty: 30 0RF
latanoprost 0.005 % Drops
1 drp BOTH EYES HS
spironolactone 25 mg Tablet
25 mg PO DAILY Qty: 30 0RF
Entresto 24-26 mg Tablet
1 tab PO BID Qty: 30 0RF
metoprolol succinate 100 mg Tablet Extended Release 24 Hr
150 mg PO DAILY Qty: 30 0RF
alprazolam [Xanax] 0.25 mg tablet
0.25 mg PO HS Qty: 10 0RF
alprazolam [Xanax] 0.25 mg tablet
0.25 mg PO BID PRN (Reason: anxiety) Qty: 10 0RF
Held
dapagliflozin propanediol 10 mg Tablet
10 mg PO DAILY Qty: 30 0RF
Hold Instructions: Resume on 05/01/24. Hold this medicine until your eating habits stabilize, and you start eating regularly.
Discontinued
loperamide 2 mg Tablet
2 mg PO [id number] PRN (Reason: diarrhea)
magnesium hydroxide [Milk of Magnesia] 400 mg/5 mL Suspension
30 ml PO [id number] PRN (Reason: no bm 3 days)
bisacodyl [Dulcolax (bisacodyl)] 10 mg Suppository
10 mg UT DAILYPRN PRN (Reason: mom ineffective after 24 hours)
Fleet Enema 19-7 gram/118 mL Enema
118 ml UT DAILYPRN PRN (Reason: dulcolax ineffective after 24 hrs)
meropenem 500 mg Recon Soln
500 mg IV Q8H Qty: 10 0RF
Rx Instructions:
Continue 5 days after the surgery on 04/15
Micafungin Sodium [Mycamine] 100 MG
Dextrose 5%/Water 100 ml [D5w] 100 ML
105 mls/hr IV DAILY@1000
Reason for use: Continue 5 days after surgery on 04/15
Ordered By: Mohit Guo MD
Last Taken: Unknown
Eliquis 5 mg Tablet
5 mg PO BID Qty: 60 0RF
Rx Instructions:
HOLD FROM 04/13 Morning dose for planned surgery on 04/15
Discharge Orders:
Discharge Patient (As Directed); Ordered 04/20/24
Ordered By: Mouna Leal
Discharge Date and Time
Print Language: UKRAINIAN
--- NOTE | 2024-04-20 14:23 | W.PN.UPDATE ---
Update Note
Progress Note Update
Patient's potassium, and magnesium were low in the am today. corrected potassium and magnesium with supplementation on the patient. Potassium 40 mEq and Magnesium 1gm IV given to the patient [facility]
[2024-04-20] MEDS: MAGNESIUM SULFATE 102 GRAMS IV (15:22)
[2024-04-20 15:36] VITALS: BP 149/83
--- NOTE | 2024-04-20 18:00 | W.PN.GYNONC ---
Today's Communication
-
ok to transfer to rehab
follow up in 4 week
suggest metamucil to help bulk the stool , discussed with Dr Griffith
Impression / Plan
-
78-year-old with left lower quadrant pelvic abscess which is pericolonic /left tubo-ovarian abscess
POD 5 s/p robotic assisted low anterior resection with TLH BSO, recovering well
VSS , afebrile and labs stable. wbc is normal, and hgb stable.
continue low residue
continue incentive spirometry
encourage OOB and ambulation,
appreciate PT and OT consult
on eliquis 2.5 mg BID
completing Abx today
K is improved, receiving supplement
ok for dc from our perspective, probably tomorrow
I recommend follow up 4-5 weeks
Roberth Hanks MD
[facility]
[phone]
Subjective / Interval History
-
she is complaining of frequent BM, has some recta pain. rena diet well,
Objective Data
-
Lab Results:
04/20/24 09:14
04/20/24 09:14
Physical Exam
Vital Signs / I&O
Vitals
Temp Pulse Resp BP Pulse Ox
98.5 F 91 16 149/83 98
04/20/24 15:36 04/20/24 15:36 04/20/24 15:36 04/20/24 15:36 04/20/24 15:36
I&O
04/18/24 04/19/24 04/20/24 04/21/24
06:59 06:59 06:59 06:59
Intake Total 900 / 900 1020 / 1020 1320 / 1320 440 / 440
Output Total 650 / 650 6 / 6
Balance 250 / 250 1020 / 1020 1314 / 1314 440 / 440
Physical Exam
General: Well Developed and Well Nourished
Respiratory: Clear and Non Labored Respirations
Cardiac: S1/S2 and Regular Rhythm
GI: Soft and Normal Bowel Sounds
Psych: Calm
Data Reviewed
-
Lab Data: Labs Reviewed
[2024-04-20] MEDS: TYLENOL 650 MG PO (21:06)
[2024-04-20] MEDS: XANAX 0.25 MG PO (22:04)
[2024-04-20] MEDS: XALATAN OPHTHALMIC SOLUTION 1 DROP BOTH EYES (22:05)
[2024-04-20 23:14] VITALS: BP 146/78
[2024-04-21] MEDS: TYLENOL PO ×4 (00:09→11:48)
[2024-04-21] MEDS: CILOXAN 0.3% OPHTHALMIC SOLUTION 2 DROP OPHTH ×2 (01:00→14:34)
[2024-04-21] MEDS: MERREM 500 MG IV (02:22)
[2024-04-21] MEDS: STERILE WATER FOR INJECTION 10 ML IV (02:22)
[2024-04-21] MEDS: CILOXAN 0.3% OPHTHALMIC SOLUTION 1 DROP OPHTH ×2 (05:00→09:50)
[2024-04-21 06:00] VITALS: BMI 23.2
[2024-04-21 06:42] LABS: Hematocrit 35.2 % (37.0-47.0); Hemoglobin 11.8 g/dL (12.0-16.0); Mean Corp Hgb Conc. 33.5 g/dL (33.0-37.0); Mean Corpuscular Hgb 30.6 pg (27.0-31.0); Mean Corpuscular Volume 91.4 fL (81.0-99.0); Mean Platelet Volume 11.1 fL (7.4-10.4); Platelet Count 301 10^3/uL (130-400); Red Blood Cell Count 3.85 10^6/uL (4.20-5.40); White Blood Cell Count 5.6 10^3/uL (4.8-10.8)
[2024-04-21 06:52] LABS: Blood Urea Nitrogen 5 mg/dl (7-17); Calcium 8.6 mg/dl (8.4-10.2); Carbon Dioxide 33 mmol/L (22-30); Chloride 98 mmol/L (98-107); Estimated Creatinine Clearance 62 ml/min; Glucose 88 mg/dl (70-99); Magnesium 1.7 mg/dl (1.6-2.3); Potassium 3.1 mmol/L (3.5-5.1); Sodium 135 mmol/L (135-145); eGFR > 60.00
[2024-04-21 07:20] VITALS: BP 128/78
--- NOTE | 2024-04-21 07:31 | W.PN.HOSP.TC ---
Addendum entered and electronically signed by Abilio Chilel MD 04/22/24 00:18:
Attending Addendum-
I saw and evaluated the patient. I reviewed the resident�s note and agree with findings and plan as documented in the resident�s note. Sub: patient seen with son present. 'i feel good. Im going to [place]!' denies abd pain good appetite. Full 12
point ROS reviewed and negative except as documented Exam: Vitals reviewed in chart GEN-NAD heart RRR lungs decreased at bases fine crackles b/l abd incision CDI LE trace b/l LE edema
PLAN:
# Left tubo-ovarian abscess secondary to diverticular disease
-Status post robotic low anterior resection with takedown of splenic flexure, intracorporeal anastomosis on 04/15 POD#4
-Status post robotic assisted total laparoscopic hysterectomy and bilateral salpingo-oophorectomy, extensive pelvic lysis of adhesions on 04/15 POD # 4
-cont meropenem and micafungin -> 04/02 0
-Pain control with Tylenol, oxycodone
# Hypokalemia
- replete
- repeat BMP in 3 days at [facility]
# Hypomagnesemia
- repleted
- resolved
- repeat mg in 3 days at [facility]
# Mild right eye corneal abrasion
completed ciprofloxacin eyedrops
#Paroxysmal atrial fibrillation
- cont Eliquis
- Continue metoprolol
# Hyponatremia
- resolved
- cont diuretics
- repeat BMP in am
# Urinary Retention
- gaona dc'd
- urinating as usual
#Chronic HFpEF
-Continue Entresto
-Restarted Lasix Thursday
-restart spironolactone
-restart Farxiga on DC
#Essential hypertension
Continue home metoprolol succinate
#CKD 3
-Renal function at baseline
# Glaucoma
-Continue latanoprost
# Anxiety/depression
- cont prn Xanax on DC
- cont fluoxetine
#GERD
-continue protonix
Dispo- DC to [facility] today per primary
Thank you for allowing us to participate in this patients care!
Time spent coordinating care, review of plan of care with resident, personally reviewed records in EMR, med rec, consults, notes, labs, radiology, d/w nursing, son, surgery � 52 mins
Original Note:
Today's Communication/Plan
-
K + supplementation. Mg supplementation.
Hold Metamucil until regular diet
Ciprofloxacin stop date - on 04/24/24
Assessment / Plan
Assessment / Plan
IMPRESSION:
78-year-old female with PMHx significant for paroxysmal A-fib on Eliquis, chronic HFpEF, essential hypertension, stage III CKD, anxiety presented to the hospital for elective colon resection and laparoscopic hysterectomy with bilateral
[id number] day 3 today.
PLAN:
Left tubo-ovarian abscess secondary to diverticular disease
S/p robotic low anterior resection with takedown of splenic flexure, intracorporeal anastomosis on 04/15/2024, day 3
S/p robotic assisted total laparoscopic hysterectomy and bilateral salpingo-oophorectomy, extensive pelvic lysis of adhesions on 04/15/2024, day 3
Antibiotics discontinued
Pain control with Tylenol, oxycodone
Diet advanced to regular.
Mild right eye corneal abrasion
Started ciprofloxacin eyedrops on 04/15/2024, continue ciprofloxacin eye drops till 04/24/24.
Today she denies having any symptoms in her eyes.
Paroxysmal atrial fibrillation
Age greater than or equal to 78, weight less than or equal to 60, serum creatinine at 0.6-criteria for Eliquis 2.5 mg met.
Eliquis dose changed from 5 mg p.o. twice daily to 2.5 mg p.o. twice daily.
Follow-up with echocardiography tech after discharge from rehab for adjustment of Eliquis dosing.
Continue metoprolol.
Hypokalemia - Potassium supplementation given.
Suspect secondary to GI losses.
Hypomagnesemia -
Secondary to GI losses.
Corrected yesterday, patients magnesium is at 1.7.
Patient with cardiac history, maintain Mg at or > 2
Another 500mg of oral supplementation given today.
Chronic HFpEF
Continue Entresto, spironolactone, metoprolol.
Lasix home dose resumed-Thursday, Thursday, Thursday.
Dapagliflozin to be resumed once patient starts her regular diet.
Essential hypertension
Continue home metoprolol succinate
Hematuria
Resolved, Gaona removed.
CKD 3
Renal function at baseline
Glaucoma
Continue latanoprost
Anxiety/depression
Continue Xanax, fluoxetine
GERD
continue PPI
DVT prophylaxis�heparin.
Diet: regular
Full code.
Anticipated Discharge: Today
Subjective/Interval History
-
Date of Service: April 21, 2024
Patient feels better. No complaints today.
Objective Data
-
Labs:
Laboratory Results
04/21/24
05:56
WBC 5.6
Hgb 11.8 L
Hct 35.2 L
Plt Count 301 D
Sodium 135
Potassium 3.1 L
Chloride 98
Carbon Dioxide 33 H
BUN 5 L
Creatinine 0.6
Glucose 88
Calcium 8.6
Vital Signs:
Vital Signs
Temp Pulse Resp BP Pulse Ox
97 F 95 16 146/78 97
04/20/24 23:14 04/20/24 23:14 04/20/24 23:14 04/20/24 23:14 04/20/24 23:14
I&O
04/20/24 04/21/24 04/22/24
06:59 06:59 06:59
Intake Total 1320 / 1320 880 / 0
Output Total
Balance 1314 / 1314 88 / 0
Review of Systems
-
History Source: Patient
Constitutional: Reports No Symptoms
EENT: Reports No Symptoms Reported
Respiratory: Reports Cough (Dry cough from tickle sensation in the throat, episodic-2 episodes a day.)
Cardiac: Reports No Symptoms
Abdomen/GI: Reports Other (Soft stools, 10-15 bowel movements in small amounts a day.)
Breast: Reports No Symptoms
Genitourinary: Reports No Symptoms
Musculoskeletal: Reports No Symptoms
Skin: Reports No Symptoms
Neuro: Reports No Symptoms
Endocrine: Reports No Symptoms
Hematologic / Lymphatic: Reports No Symptoms
Allergy / Immunology: Reports No Symptoms
Psych: Reports Depressed
Physical Exam
-
General: No Apparent Distress and Comfortable
HEENT: Moist Mucous Membranes
Respiratory: Clear to Auscultation and Other (Palpable crepitus almost resolved.); Negative Wheezes, Rales or Rhonchi
Cardiac: Regular Rhythm; Negative Murmur, Rub or Gallop
GI: Soft, Nontender, Nondistended and Normal Bowel Sounds
Musculoskeletal: No Clubbing, No Cyanosis and No Edema
Skin: Warm
Hematologic / Lymphatic: No Lymphadenopathy
Psych: Calm
Data Reviewed
-
CT Scan: Image personally visualized and interpreted, Report Reviewed by me and Discussed with Physician
Medical Tests (Nuc Med, Echo etc): Image personally visualized and interpreted, Report Reviewed by me and Discussed with Physician
Labs: Labs Reviewed by me and Discussed with Physician
Old Records: Reviewed
[2024-04-21] MEDS: STERILE WATER FOR INJECTION IV (08:45)
[2024-04-21] MEDS: MERREM IV (08:45)
--- NOTE | 2024-04-21 09:10 | CM ---
Addendum entered by Susanne Bryson 04/21/24 09:13:
tt Mouna Elvis
Original Note:
[facility]
Patient's potassium 3.1 - potassium given this am-repeat labs at 1pm
Will accept patient to [facility] after 1pm labs.
PLAN: [facility]
Report #: [phone]
Fax #: [phone]
[2024-04-21] MEDS: KCL ELIXIR 40 MEQ PO (09:44)
[2024-04-21] MEDS: PROZAC 20 MG PO (09:45)
[2024-04-21] MEDS: ELIQUIS 2.5 MG PO (09:45)
[2024-04-21] MEDS: PROTONIX 40 MG PO (09:45)
[2024-04-21] MEDS: TOPROL XL 150 MG PO (09:45)
[2024-04-21] MEDS: MAGNESIUM OXIDE 500 MG PO (09:45)
[2024-04-21] MEDS: ENTRESTO 24 MG/26 MG 1 TAB PO (09:45)
[2024-04-21] MEDS: ALDACTONE 25 MG PO (09:45)
[2024-04-21] MEDS: TIMOPTIC 0.5% OPHTHALMIC SOLUTION 1 DROP BOTH EYES (09:46)
[2024-04-21 13:49] LABS: Potassium 4.5 mmol/L (3.5-5.1)
[2024-04-21 14:37] VITALS: BP 113/64
== END 2024-04-21 15:27 | DRG 329 ==
LOC: 2 NORTH 13:24
PROVIDERS: Physician Assistant; Radiology Diagnostic Radiology; Registered Nurse; Student in an Organized Health Care Education/Training Program; Surgery; ADMITTING PHYSICIAN Surgery; CONSULT PHYSICIAN Physical Medicine & Rehabilitation; FAMILY PHYSICIAN Internal Medicine; OTHER PHYSICIAN Hospitalist; OTHER PHYSICIAN Obstetrics & Gynecology Gynecologic Oncology
PROC: 02HV33Z Insertion of Infusion Device into Superior Vena Cava, Percutaneous Approach (ICD-10-PCS; 2024-04-14)
PROC: 0DTN4ZZ Resection of Sigmoid Colon, Percutaneous Endoscopic Approach (ICD-10-PCS; 2024-04-15)
PROC: 0DBW4ZZ Excision of Peritoneum, Percutaneous Endoscopic Approach (ICD-10-PCS; 2024-04-15)
PROC: 0UT94ZZ Resection of Uterus, Percutaneous Endoscopic Approach (ICD-10-PCS; 2024-04-15)
PROC: 0UT74ZZ Resection of Bilateral Fallopian Tubes, Percutaneous Endoscopic Approach (ICD-10-PCS; 2024-04-15)
PROC: 8E0W4CZ Robotic Assisted Procedure of Trunk Region, Percutaneous Endoscopic Approach (ICD-10-PCS; 2024-04-15)
PROC: 0DJD8ZZ Inspection of Lower Intestinal Tract, Via Natural or Artificial Opening Endoscopic (ICD-10-PCS; 2024-04-15)
PROC: 0UT24ZZ Resection of Bilateral Ovaries, Percutaneous Endoscopic Approach (ICD-10-PCS; 2024-04-15)
DX: K57.20 Diverticulitis of large intestine with perforation and abscess without bleeding (principal); K65.1 Peritoneal abscess; I13.0 Hypertensive heart and chronic kidney disease with heart failure and stage 1 through stage 4 chronic kidney disease, or unspecified chronic kidney disease; N70.02 Acute oophoritis; N73.0 Acute parametritis and pelvic cellulitis; I50.32 Chronic diastolic (congestive) heart failure; Q89.09 Congenital malformations of spleen; I48.0 Paroxysmal atrial fibrillation; N18.31 Chronic kidney disease, stage 3a; N73.6 Female pelvic peritoneal adhesions (postinfective); R33.8 Other retention of urine; B96.5 Pseudomonas (aeruginosa) (mallei) (pseudomallei) as the cause of diseases classified elsewhere; B96.1 Klebsiella pneumoniae [K. pneumoniae] as the cause of diseases classified elsewhere; E87.6 Hypokalemia; E83.42 Hypomagnesemia; F32.A Depression, unspecified; F41.9 Anxiety disorder, unspecified; H40.9 Unspecified glaucoma; K21.9 Gastro-esophageal reflux disease without esophagitis; S05.01XA Injury of conjunctiva and corneal abrasion without foreign body, right eye, initial encounter; X58.XXXA Exposure to other specified factors, initial encounter; Z87.891 Personal history of nicotine dependence; Z79.899 Other long term (current) drug therapy; Z79.01 Long term (current) use of anticoagulants; Z79.84 Long term (current) use of oral hypoglycemic drugs
CPT/HCPCS: 88305; 88307; 71045; 80048; 80053; 82962; 83036; 83735; 84132; 85025; 85027; 85610; 85730; 86850; 86900; 86901; 87070; 97110; 97116; 97162; 97166; 97530; 97535; A4300; J1335

== ENCOUNTER 2024-05-23 06:28 | Outpatient (RCR) | payer MEDICARE, SELFPAY | END 2024-05-23 23:59 | disposition home or self-care (01) | LOC: ROT 06:28 | PROVIDERS: ATTENDING PHYSICIAN Physical Medicine & Rehabilitation; FAMILY PHYSICIAN Internal Medicine | DX: R54 Age-related physical debility (principal); Z73.6 Limitation of activities due to disability ==

== ENCOUNTER 2024-06-30 07:09 | Outpatient (RCR) | payer MEDICARE, SELFPAY | END 2024-06-30 23:59 | disposition home or self-care (01) | LOC: ROT 07:09 | PROVIDERS: ATTENDING PHYSICIAN Physical Medicine & Rehabilitation; FAMILY PHYSICIAN Internal Medicine | DX: R54 Age-related physical debility (principal); Z73.6 Limitation of activities due to disability; R26.89 Other abnormalities of gait and mobility; R35.0 Frequency of micturition; R39.15 Urgency of urination; T88.9XXD Complication of surgical and medical care, unspecified, subsequent encounter; Z98.890 Other specified postprocedural states | CPT/HCPCS: 97110; 97112; 97163; 97167; 97530; 97537 ==

== ENCOUNTER 2024-07-29 09:23 | Outpatient (RCR) | payer MEDICARE, SELFPAY | END 2024-07-29 23:59 | disposition home or self-care (01) | LOC: ROT 09:23 | PROVIDERS: ATTENDING PHYSICIAN Physical Medicine & Rehabilitation; FAMILY PHYSICIAN Internal Medicine | DX: R54 Age-related physical debility (principal); T88.9XXA Complication of surgical and medical care, unspecified, initial encounter; R26.89 Other abnormalities of gait and mobility; Y92.9 Unspecified place or not applicable; Z73.6 Limitation of activities due to disability; R35.0 Frequency of micturition; R39.15 Urgency of urination; T88.9XXD Complication of surgical and medical care, unspecified, subsequent encounter; Z98.890 Other specified postprocedural states | CPT/HCPCS: 97110; 97112; 97530; 97535; 97537 ==

== ENCOUNTER 2024-08-26 07:31 | Outpatient (RCR) | payer MEDICARE, SELFPAY | END 2024-08-26 23:59 | disposition home or self-care (01) | LOC: ROT 07:31 | PROVIDERS: ATTENDING PHYSICIAN Physical Medicine & Rehabilitation; FAMILY PHYSICIAN Internal Medicine | DX: R54 Age-related physical debility (principal); R26.89 Other abnormalities of gait and mobility; T88.9XXD Complication of surgical and medical care, unspecified, subsequent encounter; Z73.6 Limitation of activities due to disability; T88.9XXA Complication of surgical and medical care, unspecified, initial encounter; Y92.9 Unspecified place or not applicable; Z98.890 Other specified postprocedural states; R35.0 Frequency of micturition; R39.15 Urgency of urination | CPT/HCPCS: 97110; 97112; 97530; 97535; 97537 ==

== ENCOUNTER → 2024-09-02 07:02 | Outpatient (REF) | payer MEDICARE, SELFPAY | LOC: HWRCS 07:02 | PROVIDERS: ATTENDING PHYSICIAN Internal Medicine; FAMILY PHYSICIAN Internal Medicine | DX: I50.21 Acute systolic (congestive) heart failure (principal); I48.0 Paroxysmal atrial fibrillation | CPT/HCPCS: 78452; 93017; A9500; J2785 ==

== ENCOUNTER → 2024-09-26 08:07 | Outpatient (REF) | payer MEDICARE, SELFPAY | LOC: RCS 08:07 | PROVIDERS: ATTENDING PHYSICIAN Internal Medicine; FAMILY PHYSICIAN Internal Medicine | DX: I50.21 Acute systolic (congestive) heart failure (principal) | CPT/HCPCS: 93306 ==